=== PATIENT | male | born 1935 | race Caucasian/White ===

== ENCOUNTER 2019-10-25 01:44 | Inpatient (IN) | payer MEDICARE, MEDICAID, SELFPAY ==
[2019-10-25] VITALS (175 sets, daily range): BP systolic 75–178; BP diastolic 44–110; PULSE 68–115; RESP 13–29; TEMP 35.9–37.1; O2SAT 77–100; BMI 19.5
--- NOTE | 2019-10-25 02:08 | ED_ITS ---
Entered by Yazmin Oden, acting as scribe for Tatum Rodríguez MD HPI - GI Bleed General: Chief complaint: GI Bleed Stated complaint: RECTAL BLEEDING Time Seen by Provider: 10/25/19 01:50 Source: patient and family Mode of arrival: ambulatory History of Present Illness: HPI Narrative: 84 y/o male presents to the ED with GI bleeding. 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 He has a hx of hemorrhoids but states he had them repaired several years ago and has not had any issues since then. Upon exam, pts underwear and the bed sheets are soaked with blood. Pt is very pale and lethargic. Family states he is on blood thinners. He also had an episode of vomiting, in the bathroom, at home after become dizzy. Family reports there was not any blood present in the emesis. MD complaint: other (blood in stool) Onset (ago): hour(s) Pain Consistency: constant Severity: moderate Exacerbating factors: bowel movement Context: hemorrhoids Associated symptoms: Reports malaise, vomiting and weakness; Denies abdominal pain, chills, easy bruising, fever(s), headache(s) or rash Review of Systems Const: Reports: malaise; Denies: fever, chills, body aches or change in appetite Eyes: Denies: blurry vision or eye discomfort ENMT: Denies: throat pain or dental pain Card: Denies: chest pain Resp: Denies: shortness of breath GI: Reports: vomiting and blood in stool; Denies: abdominal pain or diarrhea : Denies: painful urination Musc: Denies: neck pain or back pain Skin/Breast: Denies: rash Neuro: Denies: headache Psych: Denies: depression Juan Carlos/Lymph: Denies: easy bruising All/Imm: Denies: hives PFS ED PFSH: Medical History (Updated 10/25/19 @ 04:50 by Travon Springer MD) Chronic kidney disease, stage III (moderate) Cognitive impairment Constipation COPD (chronic obstructive pulmonary disease) Coronary artery disease Hyperlipidemia Hypertension Surgical History (Updated 10/25/19 @ 04:50 by Travon Springer MD) Stented coronary artery 3 stents at [facility] 16 years ago Family History (Updated 10/25/19 @ 04:54 by Travon Springer MD) Denies family history of Clotting disorder Chronic kidney disease (CKD) Social History (Updated 10/25/19 @ 04:55 by Travon Springer MD) Smoking and tobacco status: former smoker Quit status (tobacco): has quit using tobacco Former quit date comment: Quit smoking few weeks ago Alcohol intake: never Substance/Drug Use: never Household members: family Housing: House Physical Exam Const: GENERAL APPEARANCE: lethargic, ill appearing and frail appearing ORIENTATION/CONSCIOUSNESS: Yes lethargic HENMT: COMMON NORMALS: normocephalic and head/scalp atraumatic HEAD & SCALP: normocephalic and atraumatic TYMPANIC MEMBRANE: other (Pt has a very hard time hearing, even with his hearing aids.) Eye: COMMON NORMALS: PERRL and EOMs intact bilaterally PUPIL: Yes PERRL Neck/C-Spine: COMMON NORMALS: full ROM and supple Chest: COMMONS NORMALS: inspection of chest normal and palpation of chest normal Resp: COMMON NORMALS: normal respiratory effort, no retractions, no use of accessory muscles and clear to auscultation bilaterally AUSCULTATION: clear to auscultation bilaterally Cardio: COMMON NORMALS: regular rate, regular rhythm and no murmurs RATE: regular rate RHYTHM: regular rhythm GI: COMMON NORMALS: normal to inspection, nondistended, normoactive bowel sounds, soft to palpation, non-tender and no masses PALPATION: Yes soft OTHER: bright red blood upon rectal exam Extremity: COMMON NORMALS: normal to inspection and full ROM Neuro: COMMON NORMALS: no focal motor deficits SENSORIUM/ORIENTATION: Yes lethargic Psych: COMMON NORMALS: thought process normal and cooperative ATTITUDE: Yes calm THOUGHT PROCESS: normal thought process Skin: COMMON NORMALS: no rashes or lesions noted and no wounds NARRATIVE SKIN EXAM: pale GENERAL SKIN EXAM: no rashes or lesions noted Course Vital Signs: Vital signs: Vital Signs Temperature 97.4 F L 10/25/19 05:05 Pulse Rate 80 10/25/19 05:05 Respiratory Rate 16 10/25/19 05:05 Blood Pressure 112/66 10/25/19 05:05 Pulse Oximetry 96 10/25/19 05:05 MDM - GI Bleed MDM Narrative: Medical decision making narrative: Patient presents here with lower GI bleed and hypotension. Patient's original blood pressure was in 70s and he is quite pale. Patient transfused due to symptomatic blood loss. Initial hemoglobin was 10 by believe that is incorrect and second 1 did drop quite a bit to 8.4. Patient is improved after blood products and blood pressure is now 121/59. Patient CT showed a possible proctitis. I believe his bleeding is likely from a diverticulosis. Patient started on doxycycline although he did not have much tenderness on rectal exam. Lab Data: Labs: Lab Results 10/25/19 10/25/19 10/25/19 Range/Units 02:05 02:05 02:05 WBC 24.2 H (4.0-10.0) 10^3/ uL RBC 3.45 L (4.1-5.3) 10^6/u L Hgb 10.9 L (11.7-16.6) g/dL Hct 34.9 L (42.0-52.0) % MCV 101.2 H (80-94) fL MCH 31.6 (28.0-34.0) pg MCHC 31.2 (30.0-36.0) g/dL RDW 15.3 H (12.1-15.1) % Plt Count 253 (130-400) 10^3/c mm MPV 11.6 H (7.4-10.4) fL Neut % (Auto) 77.8 % Lymph % (Auto) 13.6 % [place] % (Auto) 7.1 % Eos % (Auto) 0.6 % Baso % (Auto) 0.3 % Neut # (Auto) 18.9 H (1.8-7.7) 10^3/u L Lymph # (Auto) 3.3 (0.8-4.8) 10^3/u L [place] # (Auto) 1.7 H (0.2-0.9) 10^3/u L Eos # (Auto) 0.1 (0.0-0.8) 10^3/u L Baso # (Auto) 0.1 (0.0-0.1) 10^3/u L Nucleated RBC % (a uto) 0 % Nucleated RBCs # 0.0 /100WBC PT 13.80 H (10.5-13.3) SECO NDS INR 1.06 (0.8-1.2) Sodium 138 (136-145) mmol/L Potassium 4.4 (3.5-5.1) mmol/L Chloride 106 (98-107) mmol/L Carbon Dioxide 20 L (22-29) mmol/L Anion Gap 16.4 (5-19) BUN 38 H (8-23) mg/dL Creatinine 2.6 H (0.7-1.2) mg/dL Glucose 203 H (65-115) mg/dL Lactate (0.5-2.2) mmol/L Calcium 9.3 (8.5-10.5) mg/dL Total Bilirubin 0.2 (0.15-1.2) mg/dL AST 11 (0-40) U/L ALT 6 (0-41) U/L Alkaline Phosphata se 66 (40-130) IU/L Total Protein 6.3 L (6.6-8.7) g/dL Albumin 3.5 (3.5-5.2) g/dL Globulin 2.8 (1.3-4.6) g/dL Blood Type Rho(D) Type Antibody Screen Crossmatch 10/25/19 10/25/19 10/25/19 Range/Units 02:05 02:05 04:20 WBC (4.0-10.0) 10^3/ uL RBC (4.1-5.3) 10^6/u L Hgb 8.4 L (11.7-16.6) g/dL Hct (42.0-52.0) % MCV (80-94) fL MCH (28.0-34.0) pg MCHC (30.0-36.0) g/dL RDW (12.1-15.1) % Plt Count (130-400) 10^3/c mm MPV (7.4-10.4) fL Neut % (Auto) % Lymph % (Auto) % [place] % (Auto) % Eos % (Auto) % Baso % (Auto) % Neut # (Auto) (1.8-7.7) 10^3/u L Lymph # (Auto) (0.8-4.8) 10^3/u L [place] # (Auto) (0.2-0.9) 10^3/u L Eos # (Auto) (0.0-0.8) 10^3/u L Baso # (Auto) (0.0-0.1) 10^3/u L Nucleated RBC % (a uto) % Nucleated RBCs # /100WBC PT (10.5-13.3) SECO NDS INR (0.8-1.2) Sodium (136-145) mmol/L Potassium (3.5-5.1) mmol/L Chloride (98-107) mmol/L Carbon Dioxide (22-29) mmol/L Anion Gap (5-19) BUN (8-23) mg/dL Creatinine (0.7-1.2) mg/dL Glucose (65-115) mg/dL Lactate 2.7 H (0.5-2.2) mmol/L Calcium (8.5-10.5) mg/dL Total Bilirubin (0.15-1.2) mg/dL AST (0-40) U/L ALT (0-41) U/L Alkaline Phosphata se (40-130) IU/L Total Protein (6.6-8.7) g/dL Albumin (3.5-5.2) g/dL Globulin (1.3-4.6) g/dL Blood Type O Positive Rho(D) Type Positive Antibody Screen Negative Crossmatch See Detail Imaging Data^: CT Abd/Pel: Radiologist's impression: [place] [address] CT Scan Report Signed Patient: Jimenez Green #: [id number] : 6Acct#:[id number] Age/Sex: 84 / MADM Date: 10/25/19 Loc: ERRoom/Bed: Attending Dr: Ordering Provider/Ordering MD: Tatum Rodríguez MD Date of Service: 10/25/19 Procedure(s): CT abdomen pelvis con [id number] Accession Number(s): [id number] Report Number: [id number] PROCEDURE INFORMATION: Exam: CT Abdomen And Pelvis Without Contrast Exam date and time: 10/25/2019 2:42 AM Age: 84 years old Clinical indication: Nausea and vomiting and other: Rectal bleeding; Abdominal pain; Generalized; Prior surgery; Surgery date: 6+ months; Surgery type: Hemorrhoid; Additional info: Abd pain TECHNIQUE: Imaging protocol: Computed tomography of the abdomen and pelvis without contrast. Total DLP: 528.34 mGy-cm Radiation optimization: All CT scans at this facility use at least one of these dose optimization techniques: automated exposure control; mA and/or kV adjustment per patient size (includes targeted exams where dose is matched to clinical indication); or iterative reconstruction. COMPARISON: No relevant prior studies available. FINDINGS: Liver: Normal. No mass. Gallbladder and bile ducts: Normal. No calcified stones. No ductal dilation. Pancreas: Normal. No ductal dilation. Spleen: Normal. No splenomegaly. Adrenals: Normal. No mass. Kidneys and ureters: Water density bilateral renal lesions are suggestive of cysts that do not require specific follow-up. Largest is estimated at 3.6 cm. Stomach and bowel: Colonic diverticuli. Hazy increased density in perirectal fat. Rectal wall is mildly thickened. There is questioned short segment thickening of proximal ascending colonic wall although stool or peristalsis are possibilities. Appendix: No evidence of appendicitis. Intraperitoneal space: Unremarkable. No free air. No significant fluid collection. Vasculature: Vascular calcifications. The infrarenal aorta mildly increases in diameter to 2.2 cm as compared to 1.8 cm in the more proximal aorta. Lymph nodes: Unremarkable. No enlarged lymph nodes. Bladder: Unremarkable as visualized. Reproductive: Fluid density finding in visualized upper right scrotum can represent hydrocele or cyst . Bones/joints: Unremarkable. No acute fracture. Soft tissues: Unremarkable. Other findings: Coronary calcifications. Emphysema. CT/CT abdomen pelvis wo con [id number] IMPRESSION: Findings suggesting proctitis. Correlation with screening colonic regimen recommended as there is a short segment focus of questioned proximal ascending colonic wall thickening. Additional details as above. Radiation Dose CTDIVOL = (mGy): DLP = 528.34 (mGy-cm) EKG Data^: EKG 1: Attestation: I personally reviewed and interpreted this EKG as follows: EKG interpretation date: 10/25/19 EKG interpretation time: 03:59 Interpretation: nsr hr [address] or t wave abnormalities qrs 90 qtc 425 Critical Care Time Critical Care Time: Critical Care Time: Yes Total Critical Care Time: 35 Attestation: This case had a high probability of a clinically significant, sudden, or life threatening deterioration of this patient's condition which required my full and direct attention, intervention and personal management. Discharge Plan Discharge Patient Disposition: Admitted As Inpatient Clinical Impression: Lower gastrointestinal hemorrhage, Hemorrhagic shock Condition: Stable Referrals: Niya Jain MD [Family Provider] - Adama Olmedo MD [Primary Care Provider] - Coding Level of Care Code ED Security Analyst for Chg Fwd Exam Comprehensive The documentation recorded by the Akshat andrade Ashley, accurately reflects the service I personally performed and the decisions made by me, Tatum Rodríguez MD Oct 25, 2019 01:44
[2019-10-25 02:14] LABS: Basophils # 0.1 10^3/uL (0.0-0.1); Basophils % 0.3 %; Eosinophils # 0.1 10^3/uL (0.0-0.8); Eosinophils % 0.6 %; Hematocrit 34.9 % (42.0-52.0); Hemoglobin 10.9 g/dL (11.7-16.6); Lymphocytes # 3.3 10^3/uL (0.8-4.8); Lymphocytes % 13.6 %; Mean Corpuscular HGB Conc 31.2 g/dL (30.0-36.0); Mean Corpuscular Hemoglobin 31.6 pg (28.0-34.0); Mean Corpuscular Volume 101.2 fL (80-94); Mean Platelet Volume 11.6 fL (7.4-10.4); Monocytes # 1.7 10^3/uL (0.2-0.9); Monocytes % 7.1 %; Neutrophils # 18.9 10^3/uL (1.8-7.7); Neutrophils % 77.8 %; Nucleated Red Blood Cells % 0 %; Platelet Count 253 10^3/cmm (130-400); Red Blood Count 3.45 10^6/uL (4.1-5.3); Red Cell Distribution Width 15.3 % (12.1-15.1); White Blood Count 24.2 10^3/uL (4.0-10.0)
[2019-10-25 02:34] LABS: Alanine Aminotransferase 6 U/L (0-41); Albumin Level 3.5 g/dL (3.5-5.2); Alkaline Phosphatase 66 IU/L (40-130); Anion Gap 16.4 (5-19); Aspartate Amino Transferase 11 U/L (0-40); Blood Urea Nitrogen 38 mg/dL (8-23); Calcium 9.3 mg/dL (8.5-10.5); Carbon Dioxide 20 mmol/L (22-29); Chloride 106 mmol/L (98-107); Globulin 2.8 g/dL (1.3-4.6); Glucose 203 mg/dL (65-115); Potassium 4.4 mmol/L (3.5-5.1); Sodium 138 mmol/L (136-145); Total Bilirubin 0.2 mg/dL (0.15-1.2); Total Protein 6.3 g/dL (6.6-8.7)
--- NOTE | 2019-10-25 02:36 | CTR_ITS ---
PROCEDURE INFORMATION: Exam: CT Abdomen And Pelvis Without Contrast Exam date and time: 10/25/2019 2:42 AM Age: 84 years old Clinical indication: Nausea and vomiting and other: Rectal bleeding; Abdominal pain; Generalized; Prior surgery; Surgery date: 6+ months; Surgery type: Hemorrhoid; Additional info: Abd pain TECHNIQUE: Imaging protocol: Computed tomography of the abdomen and pelvis without contrast. Total DLP: 528.34 mGy-cm Radiation optimization: All CT scans at this facility use at least one of these dose optimization techniques: automated exposure control; mA and/or kV adjustment per patient size (includes targeted exams where dose is matched to clinical indication); or iterative reconstruction. COMPARISON: No relevant prior studies available. FINDINGS: Liver: Normal. No mass. Gallbladder and bile ducts: Normal. No calcified stones. No ductal dilation. Pancreas: Normal. No ductal dilation. Spleen: Normal. No splenomegaly. Adrenals: Normal. No mass. Kidneys and ureters: Water density bilateral renal lesions are suggestive of cysts that do not require specific follow-up. Largest is estimated at 3.6 cm. Stomach and bowel: Colonic diverticuli. Hazy increased density in perirectal fat. Rectal wall is mildly thickened. There is questioned short segment thickening of proximal ascending colonic wall although stool or peristalsis are possibilities. Appendix: No evidence of appendicitis. Intraperitoneal space: Unremarkable. No free air. No significant fluid collection. Vasculature: Vascular calcifications. The infrarenal aorta mildly increases in diameter to 2.2 cm as compared to 1.8 cm in the more proximal aorta. Lymph nodes: Unremarkable. No enlarged lymph nodes. Bladder: Unremarkable as visualized. Reproductive: Fluid density finding in visualized upper right scrotum can represent hydrocele or cyst . Bones/joints: Unremarkable. No acute fracture. Soft tissues: Unremarkable. Other findings: Coronary calcifications. Emphysema. CT/CT abdomen pelvis wo con [id number] IMPRESSION: Findings suggesting proctitis. Correlation with screening colonic regimen recommended as there is a short segment focus of questioned proximal ascending colonic wall thickening. Additional details as above. Radiation Dose CTDIVOL = (mGy): DLP = 528.34 (mGy-cm)
[2019-10-25] MEDS: sodium chloride 0.9% 1,000 ML 999 ML IV (02:41)
[2019-10-25] MEDS: sodium chloride 0.9% 500 ML 999 ML IV (02:42)
[2019-10-25] MEDS: fentaNYL 50 mcg/mL INJ 2mL IVP (02:42)
[2019-10-25] MEDS: ondansetron 2 mg/ML SDV 2 mL 4 MG IVP (02:43)
[2019-10-25 03:15] LABS: INR 1.06 (0.8-1.2)
[2019-10-25] MEDS: pantoprazole 40 MG in sodium chloride 0.9% (plus) 100 ML 20 MG IV (03:35)
[2019-10-25] MEDS: pantoprazole 40 mg SDV 80 MG IVP (03:35)
[2019-10-25 03:39] LABS: Lactate (Lactic Acid level) 2.7 mmol/L (0.5-2.2)
--- NOTE | 2019-10-25 03:50 | PC.NURSE ---
Introduced self to patient and initiated vital signs. Patient presents A&O x 4. NAD, ABCs intact, MAEW and agreeable to treatment. Respirations are even and unlabored. Pt states that the chief complaint for the ER visit today is due to bright red blood in stool which presented around 1700 Pt denies any vision disturbances or lightheadedness. Bed left in lowest position in semi-fowlers with side rails up.Reassured patient of needs and will continue to monitor.
--- NOTE | 2019-10-25 04:01 | PC.NURSE ---
[facility] [phone]
[2019-10-25 04:27] LABS: Hemoglobin 8.4 g/dL (11.7-16.6)
--- NOTE | 2019-10-25 04:35 | P.HP_ITS ---
Providers/Chief Complaint Primary Care Provider: Adama Olmedo MD Chief Complaint: RECTAL BLEEDING History of Present Illness Jimenez Green is a 84 year old male who carries diagnosis of established coronary disease, hypertension, CKD stage III presented with chief complaint of lower GI bleed. Patient is stating that he was in his usual state of health i.e. independent for his daily activities, quit smoking, has been experiencing constipation. Today around 6 PM he had a bowel movement with hard stools which followed by profuse bright bleed per rectum, he started experiencing hypogastric region abdominal pain with it, did not notice any fever, chills but experienced nausea vomiting and some right shoulder pain for which she took 1 dose of sublingual nitroglycerin. He is denying any previous history of GI bleed, use o f anticoagulants, he uses aspirin. He is endorsing to constipation and hard stool passage. No recent traveling. On arrival in ER his systolic blood pressure was fluctuating between 70-80, rectal exam showed bright bleed per rectum, CT scan showed proctitis with stool burden He was given doxycycline, blood transfusion was initiated When I examined the patient his systolic blood pressure was 105, he was awake alert oriented x3 He endorsed that his abdominal pain has subsided after getting analgesics Review of Systems Const: Denies: fever, chills or body aches Eyes: Denies: change in vision ENMT: Denies: throat pain Card: Denies: chest pain, palpitations, edema or syncope Resp: Denies: shortness of breath GI: Reports: abdominal pain, nausea, vomiting, constipation, change in bowel habits, rectal pain and blood in stool; Denies: rectal swelling : Denies: flank pain Musc: Denies: neck pain Skin/Breast: Denies: rash Neuro: Denies: headache Psych: Denies: anxiety Endo: Denies: excessive urination Juan Carlos/Lymph: Denies: easy bruising All/Imm: Denies: hives Medications/Allergies Allergies Allergy/AdvReac Type Severity Reaction Status Date / Time No Known Allergies Allergy Verified 10/25/19 02:09 PFSH Acute PFSH: Medical History (Updated 10/25/19 @ 04:50 by Travon Springer MD) Chronic kidney disease, stage III (moderate) Cognitive impairment Constipation COPD (chronic obstructive pulmonary disease) Coronary artery disease Hyperlipidemia Hypertension Surgical History (Updated 10/25/19 @ 04:50 by Travon Springer MD) Stented coronary artery 3 stents at [facility] 16 years ago Family History (Updated 10/25/19 @ 04:54 by Travon Springer MD) Denies family history of Clotting disorder Chronic kidney disease (CKD) Social History (Updated 10/25/19 @ 04:55 by Travon Springer MD) Smoking and tobacco status: former smoker Quit status (tobacco): has quit using tobacco Former quit date comment: Quit smoking few weeks ago Alcohol intake: never Substance/Drug Use: never Household members: family Housing: House Vitals/I&O/Wt Last Vital Signs Temp 97.5 F L 10/25/19 04:28 Pulse 95 10/25/19 03:58 Resp 18 10/25/19 04:28 BP 91/55 10/25/19 04:28 Pulse Ox 96 10/25/19 03:58 Weight last 48 hrs Weight 63.503 kg Physical Exam Narrative: EXAM NARRATIVE: Very pleasant elderly male lying comfortably in his bed saturating well on room air Alert oriented x3 GCS 15 Pallor complexion Patient is very hard of hearing S1, S2 no tachycardia or signs of heart failure Lung auscultation reveals clear breath sounds without adventitious sounds Abdomen reveals: Soft, mild tenderness on deep palpation to hypogastric and right lower quadrant area, bowel sounds are very sluggish, mild guarding without profound rigidity Lower extremity does not show any sign ischemia gangrene ulcer Rectal exam showed bright bleed per rectum Appropriate mood and affect Data : 10/25/19 04:20 10/25/19 02:05 A&P Assessment and plan (1) Lower gastrointestinal hemorrhage: Status: Acute Code(s): K92.2 - Gastrointestinal hemorrhage, unspecified (2) Hemorrhagic shock: Status: Acute Code(s): R57.8 - Other shock Additional A&P Information Lower GI bleed secondary to proctitis after passage of hard stool Monitor for signs of perforation with serial abdominal exam For leukocytosis and proctitis I would cover him for gram-negative and anaerobic microorganisms with [facility] General surgery consult, Dr. Villagomez consulted and notified by ER physician Acute macrocytic blood loss anemia Hemorrhagic shock responding well to blood transfusion and fluid resuscitation Current hemoglobin is 8.4, his baseline hemoglobin is 11-13 Check B12 folate level Established coronary disease History of 3 stents placement No active chest pain, he took 1 nitroglycerin for right shoulder pain before his arrival to ED Currently he is asymptomatic, Dyslipidemia and COPD We are not certain about his home medications, kindly call his pharmacy to reconcile For now I am holding statins and aspirin No active COPD exacerbation Acute on chronic kidney disease stage III: Due to shock Baseline creatinine around 2-2.3, current creatinine is 2.6 Monitor with BMP Anticipating provement with slow resuscitation and blood transfusion DVT prophylaxis: SCDs Avoid anticoagulation because of active GI bleed Full code Attestations Medical Necessity Statement*: Admit to ICU for hemorrhagic shock anticipating stay to cross more than 2 midnights Time Spent in Patient Care: 45 Critical Care Time: Critical Care Time (min): 30 Coding Level of Care Code Acute Bedspread Seamer for Rubén Hanna Diagnoses Lower gastrointestinal hemorrhage K92.2 Hemorrhagic shock R57.8
--- NOTE | 2019-10-25 04:38 | PC.NURSE ---
Blood titrated to 200 ml/hr
--- NOTE | 2019-10-25 05:28 | PC.NURSE ---
Blood titrated to 240 ml/hr
--- NOTE | 2019-10-25 05:45 | PC.NURSE ---
Called ICU to give report, they will call back.
[2019-10-25] MEDS: doxycycline 100 MG in sodium chloride 0.9% (plus) 100 ML IV (06:04)
--- NOTE | 2019-10-25 06:31 | PC.NURSE ---
Pt transported to ICU by this RN.
[2019-10-25 06:54] LABS: Add Urine Microscopic? YES; Bilirubin Urine Neg (NEGATIVE); Blood Urine 2+ (Negative); Glucose Urine UA Norm (Normal); Ketones Urine Negative (Negative); Leukocyte Esterase Urine Negative (Negative); Nitrate Urine Negative (Negative); Protein Urine Neg (Negative); Specific Gravity, Urine 1.015 (1.005-1.030); Urine Appearance Clear (CLEAR); Urine Color Yellow (Yellow); Urobilinogen Urine Norm (Negative); pH Urine 5 (5-7)
[2019-10-25 07:02] LABS: Bacteria Urine TRACE; Mucus Urine TRACE; Squamous Epithelial Cell Urine 0-4 (0-5); WBC Urine 0-4 /hpf (0-5)
[2019-10-25 07:03] LABS: Add Urine Culture? No; Hyaline Casts Urine 0-4
[2019-10-25] MEDS: piperacillin-tazobactam 3.375 GM in sodium chloride 0.9% (plus) 50 ML IV ×2 (08:05→20:26)
--- NOTE | 2019-10-25 08:12 | PC.NURSE ---
Physician notified of Miralax order. MD gave verbal orders to hold medication this AM
--- NOTE | 2019-10-25 08:20 | PC.NURSE ---
Blood transfusion complete at 8:16 am. Vitals stable at this time and patient appears to be sleeping.
[2019-10-25] MEDS: pantoprazole 40 mg SDV IVP ×2 (10:31→17:27)
[2019-10-25 11:05] LABS: Hematocrit 38.2 % (42.0-52.0); Hemoglobin 11.6 g/dL (11.7-16.6)
--- NOTE | 2019-10-25 14:58 | PM.PN ---
Subjective Subjective: Interval history: overnight H&P, labs reviewed, no further bleeding episodes. no new complaints this morning. Hb 11 this morning Medications: Reviewed: Yes Vitals/I&O/Wt Last Vital Signs Temp 97.5 F L 10/25/19 08:19 Pulse 84 10/25/19 12:15 Resp 17 10/25/19 12:15 BP 133/67 10/25/19 12:15 Pulse Ox 97 10/25/19 12:15 10/24/19 10/25/19 10/25/19 22:59 06:59 14:59 Intake Total 0 / 0 600 / 600 Output Total 240 / 240 Balance 0 / 0 360 / 360 Weight last 48 hrs Weight 63.503 kg Physical Exam Narrative: EXAM NARRATIVE: GEN: Awake, alert and oriented, no acute distress CVS: S1S2 N RS: CTA B/L Abd: Soft, nt/nd , bs+ PURIFICATION SUPERVISOR: no focal neuro deficits Data : 10/25/19 10:25 10/25/19 02:05 A&P Assessment and plan (1) Lower gastrointestinal hemorrhage: Status: Acute Code(s): K92.2 - Gastrointestinal hemorrhage, unspecified (2) Hemorrhagic shock: Status: Acute Code(s): R57.8 - Other shock Additional A&P Information Lower GI bleed secondary to proctitis after passage of hard stool Monitor for signs of perforation with serial abdominal exam For leukocytosis and proctitis curretly on Zosyn likely colonoscopy in am Acute macrocytic blood loss anemia Hemorrhagic shock responding well to blood transfusion and fluid resuscitation rpt hb 11 Established coronary disease History of 3 stents placement No active chest pain, he took 1 nitroglycerin for right shoulder pain before his arrival to ED Currently he is asymptomatic, Dyslipidemia and COPD No active COPD exacerbation Acute on chronic kidney disease stage III: Due to shock Baseline creatinine around 2-2.3, current creatinine is 2.6 Monitor with BMP Anticipating provement with slow resuscitation and blood transfusion DVT prophylaxis: SCDs Avoid anticoagulation because of active GI bleed Full code Attestations Medical Necessity Statement*: gi bleeding,planned for colonoscopy, close monitoring Coding Level of Care Code Acute Plodding Operator for Rubén Hanna Diagnoses Lower gastrointestinal hemorrhage K92.2 Hemorrhagic shock R57.8
[2019-10-25] MEDS: magnesium citrate Btl 296 mL PO ×2 (15:14→20:26)
[2019-10-25] MEDS: bisacodyl 5 mg Tablet 40 MG PO (15:14)
[2019-10-26] VITALS (23 sets, daily range): BP systolic 108–170; BP diastolic 63–105; PULSE 76–111; RESP 14–23; TEMP 36.4–36.7; O2SAT 85–98
[2019-10-26 05:04] LABS: Basophils # 0.1 10^3/uL (0.0-0.1); Basophils % 0.3 %; Eosinophils # 0.2 10^3/uL (0.0-0.8); Eosinophils % 0.9 %; Hematocrit 36.8 % (42.0-52.0); Lymphocytes # 1.4 10^3/uL (0.8-4.8); Lymphocytes % 6.5 %; Mean Corpuscular HGB Conc 32.6 g/dL (30.0-36.0); Mean Corpuscular Hemoglobin 31.2 pg (28.0-34.0); Mean Corpuscular Volume 95.6 fL (80-94); Mean Platelet Volume 11.5 fL (7.4-10.4); Monocytes # 1.2 10^3/uL (0.2-0.9); Monocytes % 5.7 %; Neutrophils # 18.3 10^3/uL (1.8-7.7); Nucleated Red Blood Cells % 0 %; Platelet Count 153 10^3/cmm (130-400); Red Blood Count 3.85 10^6/uL (4.1-5.3); Red Cell Distribution Width 16.4 % (12.1-15.1); White Blood Count 21.3 10^3/uL (4.0-10.0)
[2019-10-26 05:26] LABS: Anion Gap 15.4 (5-19); Blood Urea Nitrogen 33 mg/dL (8-23); Calcium 9.2 mg/dL (8.5-10.5); Carbon Dioxide 21 mmol/L (22-29); Chloride 110 mmol/L (98-107); Glucose 111 mg/dL (65-115); Osmolality Calculated 292 mOsm/kg (285-295); Potassium 4.4 mmol/L (3.5-5.1); Sodium 142 mmol/L (136-145)
--- NOTE | 2019-10-26 08:00 | PC.NURSE ---
DR. BUSCH IN ROOM. PATIENT STATES I DO NOT WANT THE PROCEDURE WHERE YOU PUT THE TUBE DOWN MY THROAT. YOU CAN STILL SCOPE MY BOTTOM THOUGH. ORDERS RECEIVED FROM DR. BUSCH TO SCHEDULE COLONOSCOPY ONLY.
[2019-10-26] MEDS: Fleet Enema 133 mL Enema PR (11:07)
[2019-10-26] MEDS: sodium chloride 0.9% 1,000 ML 30 ML (12:15)
--- NOTE | 2019-10-26 12:15 | P.ANESASSM_ITS ---
Pre-Anesthetic Assessment Pre-Anesthetic Assessment: Height/Weight: Height 1.8 m Weight 63.503 kg Temp Pulse Resp BP Pulse Ox 98.0 F 93 16 142/99 96 10/26/19 05:04 10/26/19 10:00 10/26/19 04:00 10/26/19 10:00 10/26/19 10:00 Preop Diagnosis: gi bleed Proposed Procedure: Operation Date: 10/26/19 12:30 Proposed Procedures p EGD/COLON(Not Applicable) - Lai Villagomez MD s Colonoscopy(Not Applicable) - Lai Villagomez MD Last intake: Intake Last Liquid Date 10/25/19 Last Liquid Time 20:00 Last Solid Date 10/24/19 Last Solid Time 18:00 Social: Social History: No alcohol Exam: Pre-Anes Outpt Exam: alert, clear to auscultation bilaterally and regular rate & rhythm Airway: Submandibular: WNL Cervical ROM: WNL MP: 2 Dentition: Full History/ROS: No significant history except as noted and No significant complaints Pulmonary: Pulmonary: None reported CV/HEM: CV/HEM: CAD : : Chronic renal failure Hepatic: Hepatic: None reported GI: GI: GERD Metabolic: Metabolic: None reported Musc/skel: Musc/skel: Weakness Neuropsych: Neuropsych: Dementia Anesthetic Plan: ASA status: 3 Anesthesia: Anesthesia Evaluation and MAC Risk of > 500 ml blood loss (7ml/kg in children): No Meds/Allergies Current Medications: Current Medications Generic Name Dose Route Start Last Admin Trade Name Freq PRN Reason Stop Dose Admin Piperacillin Sod/T azobactam 50 mls @ 12.5 mls /hr 10/25/19 07:30 10/26/19 06:42 Sod 3.375 gm/ So dium Chloride IV Infused Q12H ROSAURA Infusion Protocol Pantoprazole Sodiu m 40 mg 10/25/19 09:00 10/25/19 17:27 Protonix IVP 40 mg BID ROSAURA Administration PFSH Anesthesia PFSH: Medical History (Updated 10/25/19 @ 04:50 by Travon Springer MD) Chronic kidney disease, stage III (moderate) Cognitive impairment Constipation COPD (chronic obstructive pulmonary disease) Coronary artery disease Hyperlipidemia Hypertension Surgical History (Updated 10/25/19 @ 04:50 by Travon Springer MD) Stented coronary artery 3 stents at [facility] 16 years ago Family History (Updated 10/25/19 @ 04:54 by Travon Springer MD) Denies family history of Clotting disorder Chronic kidney disease (CKD) Social History (Updated 10/25/19 @ 04:55 by Travon Springer MD) Smoking and tobacco status: former smoker Quit status (tobacco): has quit using tobacco Former quit date comment: Quit smoking few weeks ago Alcohol intake: never Substance/Drug Use: never Household members: family Housing: House Data Anesthesia CBC & Chem 7: 10/26/19 04:40 10/26/19 04:40 Other Labs: Laboratory Results - last 48 hr 10/25/19 10/25/19 10/25/19 02:05 02:05 02:05 WBC 24.2 H RBC 3.45 L Hgb 10.9 L Hct 34.9 L MCV 101.2 H MCH 31.6 MCHC 31.2 RDW 15.3 H Plt Count 253 MPV 11.6 H Neut % (Auto) 77.8 Lymph % (Auto) 13.6 [place] % (Auto) 7.1 Eos % (Auto) 0.6 Baso % (Auto) 0.3 Neut # (Auto) 18.9 H Lymph # (Auto) 3.3 [place] # (Auto) 1.7 H Eos # (Auto) 0.1 Baso # (Auto) 0.1 Nucleated RBC % (auto) 0 Nucleated RBCs # 0.0 PT 13.80 H INR 1.06 Sodium 138 Potassium 4.4 Chloride 106 Carbon Dioxide 20 L Anion Gap 16.4 BUN 38 H Creatinine 2.6 H Glucose 203 H Calculated Osmolality Lactate Calcium 9.3 Total Bilirubin 0.2 AST 11 ALT 6 Alkaline Phosphatase 66 Total Protein 6.3 L Albumin 3.5 Globulin 2.8 Urine Color Urine Appearance Urine pH Ur Specific [place] Urine Protein Urine Glucose (UA) Urine Ketones Urine Blood Urine Nitrate Urine Bilirubin Urine Urobilinogen Ur Leukocyte Esterase Urine RBC Urine WBC Ur Squamous Epith Cells Urine Bacteria Hyaline Casts Urine Mucus Blood Type Rho(D) Type Antibody Screen Crossmatch 10/25/19 10/25/19 10/25/19 02:05 02:05 04:20 WBC RBC Hgb 8.4 L Hct MCV MCH MCHC RDW Plt Count MPV Neut % (Auto) Lymph % (Auto) [place] % (Auto) Eos % (Auto) Baso % (Auto) Neut # (Auto) Lymph # (Auto) [place] # (Auto) Eos # (Auto) Baso # (Auto) Nucleated RBC % (auto) Nucleated RBCs # PT INR Sodium Potassium Chloride Carbon Dioxide Anion Gap BUN Creatinine Glucose Calculated Osmolality Lactate 2.7 H Calcium Total Bilirubin AST ALT Alkaline Phosphatase Total Protein Albumin Globulin Urine Color Urine Appearance Urine pH Ur Specific [place] Urine Protein Urine Glucose (UA) Urine Ketones Urine Blood Urine Nitrate Urine Bilirubin Urine Urobilinogen Ur Leukocyte Esterase Urine RBC Urine WBC Ur Squamous Epith Cells Urine Bacteria Hyaline Casts Urine Mucus Blood Type O Positive Rho(D) Type Positive Antibody Screen Negative Crossmatch See Detail 10/25/19 10/25/19 10/26/19 05:00 10:25 04:40 WBC 21.3 H RBC 3.85 L Hgb 11.6 L D 12.0 Hct 38.2 L 36.8 L MCV 95.6 H MCH 31.2 MCHC 32.6 RDW 16.4 H Plt Count 153 MPV 11.5 H Neut % (Auto) 86.0 Lymph % (Auto) 6.5 [place] % (Auto) 5.7 Eos % (Auto) 0.9 Baso % (Auto) 0.3 Neut # (Auto) 18.3 H Lymph # (Auto) 1.4 [place] # (Auto) 1.2 H Eos # (Auto) 0.2 Baso # (Auto) 0.1 Nucleated RBC % (auto) 0 Nucleated RBCs # 0.0 PT INR Sodium Potassium Chloride Carbon Dioxide Anion Gap BUN Creatinine Glucose Calculated Osmolality Lactate Calcium Total Bilirubin AST ALT Alkaline Phosphatase Total Protein Albumin Globulin Urine Color Yellow Urine Appearance Clear Urine pH 5 Ur Specific [place] 1.015 Urine Protein Neg Urine Glucose (UA) Norm Urine Ketones Negative Urine Blood 2+ H Urine Nitrate Negative Urine Bilirubin Neg Urine Urobilinogen Norm Ur Leukocyte Esterase Negative Urine RBC 5-10 H Urine WBC 0-4 H Ur Squamous Epith Cells 0-4 H Urine Bacteria Trace Hyaline Casts 0-4 H Urine Mucus Trace Blood Type Rho(D) Type Antibody Screen Crossmatch 10/26/19 04:40 WBC RBC Hgb Hct MCV MCH MCHC RDW Plt Count MPV Neut % (Auto) Lymph % (Auto) [place] % (Auto) Eos % (Auto) Baso % (Auto) Neut # (Auto) Lymph # (Auto) [place] # (Auto) Eos # (Auto) Baso # (Auto) Nucleated RBC % (auto) Nucleated RBCs # PT INR Sodium 142 Potassium 4.4 Chloride 110 H Carbon Dioxide 21 L Anion Gap 15.4 BUN 33 H Creatinine 2.5 H Glucose 111 Calculated Osmolality 292 Lactate Calcium 9.2 Total Bilirubin AST ALT Alkaline Phosphatase Total Protein Albumin Globulin Urine Color Urine Appearance Urine pH Ur Specific [place] Urine Protein Urine Glucose (UA) Urine Ketones Urine Blood Urine Nitrate Urine Bilirubin Urine Urobilinogen Ur Leukocyte Esterase Urine RBC Urine WBC Ur Squamous Epith Cells Urine Bacteria Hyaline Casts Urine Mucus Blood Type Rho(D) Type Antibody Screen Crossmatch Cardiac Studies: No Data to Display
--- NOTE | 2019-10-26 12:37 | PM.CONSULT ---
Providers/Reason For Consult Consulting Physican/Specialty*: Dr. Choe Reason for Consult*: Hematochezia Attending Physician: Renetta Choe MD Primary Care Provider: Adama Olmedo MD History of Present Illness History of Present Illness Jimenez Green is a 84 year old male who presented to the ER yesterday with fresh blood per rectum. Patient states that he has been having fresh bleeding per rectum for the last 6 to 8 hours. No similar episodes in the past. He states that he is occasional constipation. He is never had a colonoscopy before though his had a EGD in the past. He had some abdominal pain which is now resolved, no nausea or vomiting. No family history of colon cancer. Review of Systems General: Reports: 10 or more systems reviewed and unremarkable except in HPI and below Meds/Allergies Home Medications and Allergies Allergies Allergy/AdvReac Type Severity Reaction Status Date / Time No Known Allergies Allergy Verified 10/25/19 02:09 Current Medications Current Medications Generic Name Dose Route Start Last Admin Trade Name Freq PRN Reason Stop Dose Admin Piperacillin Sod/Tazobactam 50 mls @ 12.5 mls/hr 10/25/19 07:30 10/26/19 06:42 Sod 3.375 gm/ Sodium Chloride IV Infused Q12H ROSAURA Infusion Protocol Pantoprazole Sodium 40 mg 10/25/19 09:00 10/25/19 17:27 Protonix IVP 40 mg BID ROSAURA Administration PFSH Acute PFSH: Medical History Chronic kidney disease, stage III (moderate) Cognitive impairment Constipation COPD (chronic obstructive pulmonary disease) Coronary artery disease Hyperlipidemia Hypertension Surgical History Stented coronary artery 3 stents at [facility] 16 years ago Family History Denies family history of Clotting disorder Chronic kidney disease (CKD) Social History Smoking and tobacco status: former smoker Quit status (tobacco): has quit using tobacco Former quit date comment: Quit smoking few weeks ago Alcohol intake: never Substance/Drug Use: never Household members: family Housing: House Vitals/I&O/Wt Last Vital Signs Temp 98.0 F 10/26/19 05:04 Pulse 93 10/26/19 10:00 Resp 16 10/26/19 04:00 BP 142/99 10/26/19 10:00 Pulse Ox 96 10/26/19 10:00 10/25/19 10/26/19 10/26/19 22:59 06:59 14:59 Intake Total 560 / 1260 50 / 1260 Output Total 250 / 940 450 / 940 250 / 250 Balance 310 / 320 -400 / 320 -250 / -250 Weight last 48 hrs Weight 140 lb Physical Exam Narrative: EXAM NARRATIVE: HEENT: Normocephalic Eye: Sclera /conjunctiva normal Respiratory and chest: Bilateral clear breath sounds on auscultation Cardiovascular: Normal S1 and S2 heart sounds Abdomen: Soft to palpation Neurological: Oriented to place person and time Skin: Intact, no lesions appreciated on gross exam A&P Assessment and plan (1) Lower gastrointestinal hemorrhage: Plan for colonoscopy under MAC CT abdomen pelvis showed possible proctitis, possible constricting lesion in the ascending colon Procedure, risks, benefits and alternatives have been discussed with the patient who wishes to proceed with surgery. Status: Acute Code(s): K92.2 - Gastrointestinal hemorrhage, unspecified Consult Attestations Medical Necessity Statement: Lower GI bleed Coding Level of Care Code Acute Administrative Assistant Front Desk for lorelei Hanna Diagnoses Lower gastrointestinal hemorrhage K92.2
[2019-10-26 13:42] LABS: Lactate (Lactic Acid level) 1.1 mmol/L (0.5-2.2)
--- NOTE | 2019-10-26 16:26 | P.PN_ITS ---
Subjective Subjective: Interval history: s/p colonoscopy this morning which showed findings c/w sigmoid proctitis. No active bleeding. Severe inflammation noted. No new complaints from patient. 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 Some concern for possible ischemic component, however clinically has a benign abdominal exam and downtrending lactate which makes this less likely. If continues to have symptoms or clinical worsening, will likely proceed with CTA. Avoiding contrast for now. Acute macrocytic blood loss anemia Hemorrhagic shock responding well to blood transfusion and fluid resuscitation rpt hb 12 Established coronary disease History of 3 stents placement No active chest pain, he took 1 nitroglycerin for right shoulder pain before his arrival to ED Currently he is asymptomatic, Dyslipidemia and COPD No active COPD exacerbation Acute on chronic kidney disease stage III: Due to shock Baseline creatinine around 2-2.3, current creatinine is 2.6 Monitor with BMP Anticipating provement with slow resuscitation and blood transfusion DVT prophylaxis: SCDs Avoid anticoagulation because of active GI bleed Full code Attestations Medical Necessity Statement*: GI bleed s/p colonoscopy today Coding Level of Care Code Acute Water Well Driller for Chg Fwd Diagnoses Lower gastrointestinal hemorrhage K92.2 Hemorrhagic shock R57.8
[2019-10-26] MEDS: pantoprazole 40 mg SDV IVP (17:53)
[2019-10-26] MEDS: piperacillin-tazobactam 3.375 GM in sodium chloride 0.9% (plus) 50 ML IV (17:53)
[2019-10-27] VITALS (8 sets, daily range): BP systolic 109–155; BP diastolic 56–91; PULSE 75–93; RESP 15–22; TEMP 36.5–36.9; O2SAT 91–98
[2019-10-27] MEDS: piperacillin-tazobactam 3.375 GM in sodium chloride 0.9% (plus) 50 ML IV ×2 (05:57→20:17)
[2019-10-27 06:54] LABS: Basophils # 0.1 10^3/uL (0.0-0.1); Basophils % 0.4 %; Eosinophils # 0.6 10^3/uL (0.0-0.8); Hematocrit 33.7 % (42.0-52.0); Hemoglobin 10.2 g/dL (11.7-16.6); Lymphocytes # 2.1 10^3/uL (0.8-4.8); Lymphocytes % 13.3 %; Mean Corpuscular HGB Conc 30.3 g/dL (30.0-36.0); Mean Corpuscular Volume 99.1 fL (80-94); Mean Platelet Volume 11.3 fL (7.4-10.4); Monocytes % 6.6 %; Neutrophils # 11.6 10^3/uL (1.8-7.7); Neutrophils % 75.2 %; Nucleated Red Blood Cells % 0 %; Platelet Count 153 10^3/cmm (130-400); Red Cell Distribution Width 16.1 % (12.1-15.1); White Blood Count 15.4 10^3/uL (4.0-10.0)
[2019-10-27 07:42] LABS: Alanine Aminotransferase 6 U/L (0-41); Alkaline Phosphatase 51 IU/L (40-130); Anion Gap 12.5 (5-19); Aspartate Amino Transferase 11 U/L (0-40); Blood Urea Nitrogen 30 mg/dL (8-23); Calcium 9.2 mg/dL (8.5-10.5); Carbon Dioxide 23 mmol/L (22-29); Chloride 109 mmol/L (98-107); Globulin 2.4 g/dL (1.3-4.6); Glucose 84 mg/dL (65-115); Potassium 4.5 mmol/L (3.5-5.1); Sodium 140 mmol/L (136-145); Total Bilirubin 0.4 mg/dL (0.15-1.2); Total Protein 5.4 g/dL (6.6-8.7)
--- NOTE | 2019-10-27 08:18 | XR_ITS ---
WS: [id number] XR chest 1V portable [id number] REASON FOR EXAM: pneumonia FINDINGS: The lung peter are well aerated. No pneumonia, pleural effusion, pulmonary edema, pneumoth orax, or mass effect. The hilum and apices are normal. The heart is not enlarged. A questionable hiatal hernia is evident. XR/XR chest 1V portable [id number] IMPRESSION: Negative chest for active pathology.
[2019-10-27] MEDS: pantoprazole 40 mg SDV IVP ×2 (10:02→20:33)
--- NOTE | 2019-10-27 12:30 | PM.PN ---
Subjective Subjective: Interval history: He states that he is feeling a lot better, denies any significant abdominal pain or bleeding per rectum Vitals/I&O/Wt Last Vital Signs Temp 98.5 F 10/27/19 11:55 Pulse 78 10/27/19 11:55 Resp 18 10/27/19 11:55 BP 138/70 10/27/19 11:55 Pulse Ox 98 10/27/19 11:55 10/26/19 10/27/19 10/27/19 22:59 06:59 14:59 Intake Total 522 / 822 840 / 840 Output Total 650 / 1260 360 / 1260 Balance -128 / -438 -360 / -438 840 / 840 Physical Exam Narrative: EXAM NARRATIVE: Abdomen: Soft, nondistended, minimally tender left lower quadrant, no guarding or rigidity Data : 10/27/19 06:35 10/27/19 06:35 A&P Assessment and plan (1) Lower gastrointestinal hemorrhage: Status post colonoscopy showing severe colitis sigmoid colon. His lactate yesterday was 1.1 his lactate today was 1. His white count is down to 15 from 21 I have advanced him to full liquid diet Continue Zosyn, hopefully can go home tomorrow on oral Cipro and Flagyl if white count continues to trend down. 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
--- NOTE | 2019-10-27 16:33 | ANE.PACU2 ---
 Inpatient post-anesthesia follow up: Airway intact: Yes Vital signs: Temperature 98.5 F Pulse Rate [Monito r] 95 Pulse Rate 78 Respiratory Rate 18 Blood Pressure [Le ft Arm] 97/52 Blood Pressure 138/70 Pulse Oximetry 98 Oxygen Delivery Me thod Room Air Oxygen Flow Rate Fraction of Inspir ed Oxygen Hydration adequate: Yes Nausea and vomiting: No Mental status: Baseline
--- NOTE | 2019-10-27 19:12 | P.PN_ITS ---
Subjective Subjective: Interval history: Feels significantly improved this morning. Noted to be sitting up in bed and also ambulating in the room. No further episodes of bleeding with stools. In good spirits. Lactate is trending down, as is leukocytosis. No hemodynamic compromise. 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 Patient continues to do well, will switch over to oral ciprofloxacin and Flagyl tomorrow and likely discharge if continues to show clinical recovery. Lactate is reassuringly trending down. Coupled with clinical recovery, doubt ischemic proctitis. Hemorrhagic shock which is now resolved. Hemoglobin is stable. Established coronary disease History of 3 stents placement No active chest pain Currently he is asymptomatic from the standpoint Dyslipidemia and COPD No active COPD exacerbation Acute on chronic kidney disease stage III DVT prophylaxis: SCDs Avoid anticoagulation because of recent GI bleed Full code Anticipating discharge tomorrow Attestations Medical Necessity Statement*: Ongoing need for monitoring for blood loss anemia and proctitis, need for IV antibiotics, likely to be discharged tomorrow Coding Level of Care Code Acute Bender Hand for [facility] Jacques Diagnoses Lower gastrointestinal hemorrhage K92.2 Hemorrhagic shock R57.8
[2019-10-28] VITALS: BP 154/77; PULSE 73; RESP 18; TEMP 36.7; O2SAT 94
[2019-10-28 04:00] VITALS: BP 142/76; PULSE 74; RESP 18; TEMP 36.6; O2SAT 95
[2019-10-28 07:43] VITALS: BP 132/81; PULSE 72; RESP 16; TEMP 36.7; O2SAT 94
[2019-10-28] MEDS: piperacillin-tazobactam 3.375 GM in sodium chloride 0.9% (plus) 50 ML IV (09:15)
[2019-10-28] MEDS: pantoprazole 40 mg SDV IVP (09:16)
[2019-10-28 10:21] LABS: Basophils # 0.1 10^3/uL (0.0-0.1); Basophils % 0.4 %; Eosinophils # 0.7 10^3/uL (0.0-0.8); Eosinophils % 4.9 %; Hematocrit 34.1 % (42.0-52.0); Hemoglobin 10.5 g/dL (11.7-16.6); Lymphocytes # 1.3 10^3/uL (0.8-4.8); Lymphocytes % 9.8 %; Mean Corpuscular HGB Conc 30.8 g/dL (30.0-36.0); Mean Corpuscular Hemoglobin 29.8 pg (28.0-34.0); Mean Corpuscular Volume 96.9 fL (80-94); Mean Platelet Volume 11.2 fL (7.4-10.4); Monocytes # 0.6 10^3/uL (0.2-0.9); Monocytes % 4.6 %; Neutrophils # 10.9 10^3/uL (1.8-7.7); Neutrophils % 79.9 %; Nucleated Red Blood Cells % 0 %; Platelet Count 177 10^3/cmm (130-400); Red Blood Count 3.52 10^6/uL (4.1-5.3); Red Cell Distribution Width 15.7 % (12.1-15.1); White Blood Count 13.6 10^3/uL (4.0-10.0)
[2019-10-28 10:31] LABS: Alanine Aminotransferase 6 U/L (0-41); Albumin Level 3.2 g/dL (3.5-5.2); Alkaline Phosphatase 45 IU/L (40-130); Anion Gap 14.2 (5-19); Aspartate Amino Transferase 11 U/L (0-40); Blood Urea Nitrogen 26 mg/dL (8-23); Calcium 9.3 mg/dL (8.5-10.5); Carbon Dioxide 24 mmol/L (22-29); Chloride 104 mmol/L (98-107); Globulin 2.6 g/dL (1.3-4.6); Glucose 146 mg/dL (65-115); Potassium 4.2 mmol/L (3.5-5.1); Sodium 138 mmol/L (136-145); Total Bilirubin 0.3 mg/dL (0.15-1.2); Total Protein 5.8 g/dL (6.6-8.7)
--- NOTE | 2019-10-28 11:03 | DCPLANNER ---
Pg 2 of IM reviewed with pt. No questions, copy provided.
[2019-10-28 11:34] VITALS: BP 127/63; PULSE 65; RESP 22; TEMP 36.4; O2SAT 99
[2019-10-28 11:37] VITALS: BP 125/76; PULSE 72; RESP 14; TEMP 36.7; O2SAT 97
--- NOTE | 2019-10-28 12:58 | PM.PN ---
Subjective Subjective: Interval history: Patient has not had any further GI bleed since the colonoscopy which showed colitis. He is tolerating a full liquid diet. He is keen to go home today Vitals/I&O/Wt Last Vital Signs Temp 98.0 F 10/28/19 11:37 Pulse 72 10/28/19 11:37 Resp 14 10/28/19 11:37 BP 125/76 10/28/19 11:37 Pulse Ox 97 10/28/19 11:37 10/27/19 10/28/19 10/28/19 21:59 06:59 14:59 Intake Total 720 / 720 Output Total 250 / 250 Balance 470 / 470 Physical Exam Narrative: EXAM NARRATIVE: Abdomen: Soft, nontender, nondistended Data : 10/28/19 09:51 10/28/19 09:51 A&P Assessment and plan (1) Colitis: DC home on Cipro and Flagyl Follow-up 2 weeks Status: Acute Code(s): K52.9 - Noninfective gastroenteritis and colitis, unspecified Attestations Medical Necessity Statement*: Colitis going home today Coding Level of Care Code Acute Commanding Officer Garage for lorelei Hanna Diagnoses Colitis K52.9
[2019-10-28 14:02] VITALS: BP 125/76; PULSE 72; RESP 14; TEMP 36.7; O2SAT 97
--- NOTE | 2019-10-28 14:31 | PC.NURSE ---
DISCHARGE SUMMARY Patient was given discharge instructions and verbalized understanding. follow up appointments are to be made by patient on 10/28. patients Iv was discontinued and vitals were within patients normals. patient was taken home by family friend.
--- NOTE | 2019-10-28 14:35 | P.DS_ITS ---
Discharge Providers Date of Admission: 10/25/19 04:41 Date of Discharge: October 28, 2019 Attending Provider at Admission: Travon Springer MD Attending Provider at Discharge: Renetta Choe MD Primary Care Provider: Adama Olmedo MD Diagnoses at Discharge Discharge Diagnosis (1) Colitis: Status: Acute Reason for Visit Reason for Visit: Reason For Visit: RECTAL BLEEDING Hospital Course Discharge Summary: Jimenez Green is a 84 year old male who carries diagnosis of established coronary disease, hypertension, CKD stage III presented with chief complaint of lower GI bleed after experiencing a bout of constipation. On arrival in ER his systolic blood pressure was fluctuating between 70-80, rectal exam showed bright bleed per rectum, CT scan showed proctitis with stool burden. He was resuscitated with IV fluids and blood transfusion and hemoglobin has subsequently remained stable at around 10. He underwent a colonoscopy which showed evidence of proctitis. No active bleeding was seen. Mucosa appeared inflamed.Bleeding per rectum resolved spontaneously. At time of discharge she does not have any further episodes. He was treated with Zosyn as he had leukocytosis greater than 20 upon admission. At the time of discharge this has now trended down. He is being discharged with oral prescriptions for ciprofloxacin and Flagyl for another 5 days. He will follow- up with Dr. Villagomez in about 2 weeks. He is clinically well-appearing at the time of discharge. There is no complaint of abdominal pain or further bleeding. Physical Exam Narrative: EXAM NARRATIVE: GEN: Awake, alert and oriented, no acute distress CVS: S1S2 N RS: CTA B/L Abd: Soft, nt/nd , bs+ PULLER OUT: no focal neuro deficits Discharge Data Data Completed and Pending: Completed Studies During Hospitalization Category Date Time Status CT abdomen pelvis wo con [id number] Urge nt Cat Scan 10/25/19 02:36 Completed XR chest 1V isabel ble [id number] Stat Exams 10/27/19 08:18 Completed Pending at discharge Category Date Time Status Pathology: Surgic al [PTH] Routine Pth 10/26/19 12:56 Received Labs from last 24 hours 10/28/19 10/28/19 09:51 09:51 WBC 13.6 H RBC 3.52 L Hgb 10.5 L Hct 34.1 L MCV 96.9 H MCH 29.8 MCHC 30.8 RDW 15.7 H Plt Count 177 MPV 11.2 H Neut % (Auto) 79.9 Lymph % (Auto) 9.8 [place] % (Auto) 4.6 Eos % (Auto) 4.9 Baso % (Auto) 0.4 Neut # (Auto) 10.9 H Lymph # (Auto) 1.3 [place] # (Auto) 0.6 Eos # (Auto) 0.7 Baso # (Auto) 0.1 Nucleated RBC % (a uto) 0 Nucleated RBCs # 0.0 Sodium 138 Potassium 4.2 Chloride 104 Carbon Dioxide 24 Anion Gap 14.2 BUN 26 H Creatinine 2.7 H Glucose 146 H Calcium 9.3 Total Bilirubin 0.3 AST 11 ALT 6 Alkaline Phosphata se 45 Total Protein 5.8 L Albumin 3.2 L Globulin 2.6 Vitals: Last Vital Signs Temp 98.0 F 10/28/19 14:02 Pulse 72 10/28/19 14:02 Resp 14 10/28/19 14:02 BP 125/76 10/28/19 14:02 Pulse Ox 97 10/28/19 14:02 Discharge Plan Discharge Patient Disposition: Home, Self-Care Condition: Stable Prescriptions: New ciprofloxacin HCl 250 mg tablet 250 mg PO BID 5 Days Qty: 10 RF: 0 Flagyl 500 mg tablet 500 mg PO Q8H 5 Days Qty: 15 RF: 0 Discharge Orders: Discharge Order (Routine); Ordered 10/28/19 Ordered By: Renetta Choe Referrals: Niya Jain MD [Family Provider] - 4-7 days (Please call Tuesday to set up a follow up appointment ) Lai Villagomez MD [Physician] - 2 weeks (Please call Tuesday to set up a follow up appointment) Discharge Diet: Usual diet Discharge Activity: Resume usual activity Patient Instructions: Ciprofloxacin (By mouth), Metronidazole (By mouth) Discharge Date/Time: 10/28/19 14:15 Discharge Attestations Time Spent in Discharge Care*: less than 30 min Quality Metrics Clinical Quality Measures During this hospital stay, did patient experience: None Coding Level of Care Code Acute 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
== END 2019-10-28 14:15 | disposition home or self-care (01) | DRG 391 ==
LOC: ER 04:23 → ICU 05:28 → MEDSURG 10-27 01:14
PROVIDERS: Physician Assistant; Surgery; Admitting Provider Internal Medicine; Emergency Provider Emergency Medicine; Family Provider Family Medicine; PCP Family Medicine; Visit Provider Student in an Organized Health Care Education/Training Program
PROC: 0DJD8ZZ Inspection of Lower Intestinal Tract, Via Natural or Artificial Opening Endoscopic (ICD-10-PCS; CPT 45378; 2019-10-26 12:30)
DX: K57.30 Diverticulosis of large intestine without perforation or abscess without bleeding (principal); R57.8 Other shock; D62 Acute posthemorrhagic anemia; N17.9 Acute kidney failure, unspecified; K62.89 Other specified diseases of anus and rectum; I13.10 Hypertensive heart and chronic kidney disease without heart failure, with stage 1 through stage 4 chronic kidney disease, or unspecified chronic kidney disease; J44.9 Chronic obstructive pulmonary disease, unspecified; K52.9 Noninfective gastroenteritis and colitis, unspecified; Z87.891 Personal history of nicotine dependence; I25.10 Atherosclerotic heart disease of native coronary artery without angina pectoris; N18.3 Chronic kidney disease, stage 3 (moderate); E78.5 Hyperlipidemia, unspecified; Z95.5 Presence of coronary angioplasty implant and graft
CPT/HCPCS: 12345; 36415; 36430; 45380; 71045; 74176; 80048; 80053; 81001; 83605; 85014; 85018; 85025; 85610; 86850; 86900; 86920; 88305; 96374; 96375; 99284; C9113; J2405; J2543; J2704; J3010; J3490; J7030; J7040; J7050; P9016

== ENCOUNTER 2020-10-05 17:58 | Emergency (ER) | payer MEDICARE, MEDICAID, SELFPAY ==
[2020-10-05] VITALS (11 sets, daily range): BP systolic 94–152; BP diastolic 66–94; PULSE 59–89; RESP 15–18; TEMP 36.7; O2SAT 93–98; BMI 19.5
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
[2020-10-05 19:30] LABS: Basophils # 0.1 10^3/uL (0.0-0.1); Basophils % 0.2 %; Eosinophils # 0.1 10^3/uL (0.0-0.8); Eosinophils % 0.2 %; Hematocrit 43.2 % (42.0-52.0); Hemoglobin 14.1 g/dL (11.7-16.6); Lymphocytes # 1.1 10^3/uL (0.8-4.8); Lymphocytes % 5.2 %; Mean Corpuscular HGB Conc 32.6 g/dL (30.0-36.0); Mean Corpuscular Hemoglobin 30.6 pg (28.0-34.0); Mean Corpuscular Volume 93.7 fL (80-94); Mean Platelet Volume 10.8 fL (7.4-10.4); Monocytes # 0.9 10^3/uL (0.2-0.9); Monocytes % 4.6 %; Neutrophils # 18.26 10^3/uL (1.8-7.7); Neutrophils % 89.3 %; Nucleated Red Blood Cells % 0 %; Platelet Count 239 10^3/cmm (130-400); Red Blood Count 4.61 10^6/uL (4.1-5.3); Red Cell Distribution Width 15.8 % (12.1-15.1); White Blood Count 20.5 10^3/uL (4.0-10.0)
[2020-10-05 19:48] LABS: Alanine Aminotransferase 11 U/L (0-41); Albumin Level 4.4 g/dL (3.5-5.2); Alkaline Phosphatase 61 IU/L (40-130); Anion Gap 13.3 (5-19); Aspartate Amino Transferase 18 U/L (0-40); Blood Urea Nitrogen 28 mg/dL (8-23); Calcium 9.2 mg/dL (8.5-10.5); Carbon Dioxide 25 mmol/L (22-29); Chloride 100 mmol/L (98-107); Globulin 2.8 g/dL (1.3-4.6); Glucose 88 mg/dL (65-115); Osmolality Calculated 281 mOsm/kg (285-295); Potassium 5.3 mmol/L (3.5-5.1); Sodium 133 mmol/L (136-145); Total Bilirubin 0.3 mg/dL (0.15-1.2); Total Protein 7.2 g/dL (6.6-8.7)
[2020-10-05] MEDS: HYDROmorphone 1 mg/mL INJ 1 mL IVP (20:05)
[2020-10-05] MEDS: iodixanol 320 mg/mL 100mL Btl IV (20:19)
[2020-10-05] MEDS: HYDROcodone-acetaminophen 5-325 mg Tablet 1 TAB PO (21:50)
== END 2020-10-05 22:52 | disposition home or self-care (01) ==
PROVIDERS: Emergency Provider Emergency Medicine; PCP Family Medicine
DX: S22.22XA Fracture of body of sternum, initial encounter for closed fracture (principal); V89.2XXA Person injured in unspecified motor-vehicle accident, traffic, initial encounter; I12.9 Hypertensive chronic kidney disease with stage 1 through stage 4 chronic kidney disease, or unspecified chronic kidney disease; N18.30 Chronic kidney disease, stage 3 unspecified; J44.9 Chronic obstructive pulmonary disease, unspecified; I25.10 Atherosclerotic heart disease of native coronary artery without angina pectoris; E78.5 Hyperlipidemia, unspecified; Z87.891 Personal history of nicotine dependence
CPT/HCPCS: 70450; 71045; 71260; 72125; 74177; 80053; 85025; 96374; 99284; J1170; Q9967

== ENCOUNTER 2020-10-07 02:34 | Emergency (ER) | payer MEDICARE, MEDICAID, SELFPAY ==
[2020-10-07] VITALS (12 sets, daily range): BP systolic 90–147; BP diastolic 60–95; PULSE 14–109; RESP 16–20; TEMP 36.4; O2SAT 91–96; BMI 19.5
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
[2020-10-07] MEDS: morphine 4 mg/mL SDV 1 mL IVP (03:13)
[2020-10-07] MEDS: ondansetron 2 mg/ML SDV 2 mL 4 MG IVP (03:15)
[2020-10-07 03:25] LABS: Basophils # 0.1 10^3/uL (0.0-0.1); Basophils % 0.3 %; Eosinophils % 0.2 %; Hematocrit 42.9 % (42.0-52.0); Hemoglobin 13.9 g/dL (11.7-16.6); Lymphocytes # 1.4 10^3/uL (0.8-4.8); Lymphocytes % 7.4 %; Mean Corpuscular HGB Conc 32.4 g/dL (30.0-36.0); Mean Corpuscular Hemoglobin 30.8 pg (28.0-34.0); Mean Corpuscular Volume 95.1 fL (80-94); Mean Platelet Volume 11.5 fL (7.4-10.4); Monocytes # 1.5 10^3/uL (0.2-0.9); Monocytes % 7.5 %; Neutrophils # 16.33 10^3/uL (1.8-7.7); Nucleated Red Blood Cells % 0 %; Platelet Count 230 10^3/cmm (130-400); Red Blood Count 4.51 10^6/uL (4.1-5.3); White Blood Count 19.4 10^3/uL (4.0-10.0)
[2020-10-07 03:40] LABS: Alanine Aminotransferase 12 U/L (0-41); Albumin Level 4.1 g/dL (3.5-5.2); Alkaline Phosphatase 62 IU/L (40-130); Anion Gap 17.2 (5-19); Aspartate Amino Transferase 20 U/L (0-40); Blood Urea Nitrogen 50 mg/dL (8-23); Calcium 9.1 mg/dL (8.5-10.5); Carbon Dioxide 23 mmol/L (22-29); Chloride 104 mmol/L (98-107); Globulin 3.1 g/dL (1.3-4.6); Glucose 106 mg/dL (65-115); Osmolality Calculated 302 mOsm/kg (285-295); Potassium 5.2 mmol/L (3.5-5.1); Sodium 139 mmol/L (136-145); Total Bilirubin 0.4 mg/dL (0.15-1.2); Total Protein 7.2 g/dL (6.6-8.7)
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
[2020-10-07] MEDS: ipratropium-albuterol 3 mL Neb INHALATION (04:23)
[2020-10-07] MEDS: sodium chloride 0.9% 1,000 ML 30 ML IV (04:25)
[2020-10-07] MEDS: HYDROcodone-acetaminophen 5-325 mg Tablet 1 TAB PO (04:25)
--- NOTE | 2020-10-07 05:49 | PC.NURSE ---
tried to call son at [phone] to get ride for patient, but phone when straight to voicemail.
--- NOTE | 2020-10-07 06:13 | PC.NURSE ---
called patients antonio, his son, but got no answer and was unable to leave message on the phone.
[2020-10-07] MEDS: HYDROcodone-acetaminophen 5-325 mg Tablet 2 TAB PO (09:43)
== END 2020-10-07 09:48 | disposition home or self-care (01) ==
PROVIDERS: Emergency Provider Emergency Medicine; PCP Family Medicine
DX: S22.20XA Unspecified fracture of sternum, initial encounter for closed fracture (principal); V89.2XXA Person injured in unspecified motor-vehicle accident, traffic, initial encounter; I12.9 Hypertensive chronic kidney disease with stage 1 through stage 4 chronic kidney disease, or unspecified chronic kidney disease; N18.30 Chronic kidney disease, stage 3 unspecified; J44.9 Chronic obstructive pulmonary disease, unspecified; I25.10 Atherosclerotic heart disease of native coronary artery without angina pectoris; E78.5 Hyperlipidemia, unspecified; Z87.891 Personal history of nicotine dependence
CPT/HCPCS: 71250; 80053; 85025; 94640; 96361; 96374; 96375; 99284; J2270; J2405; J7030

== ENCOUNTER 2021-07-11 09:24 | Observation (INO) | payer MEDICARE, MEDICAID, SELFPAY ==
[2021-07-11] VITALS (119 sets, daily range): BP systolic 103–169; BP diastolic 58–104; PULSE 56–198; RESP 14–31; TEMP 36.3–36.5; O2SAT 82–97; BMI 18.2
--- NOTE | 2021-07-11 09:36 | ECG_ITS ---
[facility] Test Date: 2021-07-11 Pat Name: Jimenez Green Department: Room: Gender: Male Warper Tender: : 1935 Requested By: Sahil Johnson Order Number: [id number] Samia MD: Davi Phillips M.D. Measurements Intervals [place] Rate: 200 P: WA: QRS: 89 QRSD: 170 T: 0 QT: 237 QTc: 433 Interpretive Statements Possible atrial flutter with rapid ventricular rate INTRAVENTRICULAR CONDUCTION DELAY [130+ ms QRS DURATION] ST ELEVATION, CONSIDER INFERIOR INJURY [MARKED ST ELEVATION W/O NORMALLY INFLECTED T-WAVE IN II/aVF] ACUTE AL Compared to ECG 11/16/2018 22:20:34 Intraventricular conduction delay now present ST (T wave) deviation now present Myocardial infarct finding now present Sinus rhythm no longer present Electronically Signed On 07-11-2021 22:04:49 CARDIOVASCULAR RN by Davi Phillips M.D. [email or web address]/[id number]
--- NOTE | 2021-07-11 09:49 | ED_ITS ---
HPI - General Adult General: Chief complaint: Chest Pain Stated complaint: Chest Pain Time Seen by Provider: 07/11/21 09:49 History of Present Illness: HPI narrative: Mr. Green is a 86-year-old gentleman with history of CAD and stents who presents emergency department due to chest discomfort found to be in SVT. Reports waking up this morning and having some chest pressure in the middle of his chest. It is unclear how often he gets chest discomfort. Moderate intensity. This resolved spontaneously however it did recur at which point he decided to come to the emergency department. He otherwise reports being at his baseline health. Normal p.o. intake. Denies history of known similar episodes. No other specific provoking, exacerbating, or relieving factors identified. Review of Systems General: Reports: 10 or more systems reviewed and unremarkable except in HPI and below PFSH ED PFSH: Medical History (Updated 07/14/21 @ 00:01 by ) Chronic kidney disease, stage III (moderate) Cognitive impairment Colitis Constipation COPD (chronic obstructive pulmonary disease) Coronary artery disease Hyperlipidemia Hypertension Non-ST elevation myocardial infarction (NSTEMI) Surgical History Stented coronary artery 3 stents at [facility] 16 years ago Family History Denies family history of Clotting disorder Chronic kidney disease (CKD) Social History Smoking and tobacco status: former smoker Quit status (tobacco): has quit using tobacco Former quit date comment: Quit smoking few weeks ago Alcohol intake: never Household members: family Housing: House Physical Exam Narrative: EXAM NARRATIVE: GENERAL/CONSTITUTIONAL -somewhat ill-appearing. No acute distress. Eyes - PERRL, no conjunctival injection ENMT - Atraumatic external nose and ears. Moist mucous membranes NECK - supple. trachea midline CARDIOVASCULAR - tachycardic rate and rhythm. 1+ bilateral pulses. No peripheral edema. RESPIRATORY -clear to auscultation bilaterally. No retractions or accessory muscle use. ABDOMEN/GI - Nontender/Nondistended. MSK - Extremities without obvious deformity or tenderness to palpation SKIN - Warm, Dry NEURO - alert and appropriately oriented. strength and sensation intact. Moves all extremities equally. Course ED course: - Patient was seen and evaluated by me at bedside - Patient placed on cardiac monitors, IV access obtained - Initial evaluation notable for mildly ill appearance. Tachycardia, monitor concerning for SVT. - Patient given 6 mg adenosine with successful conversion to sinus rhythm. - Labs notable for mild leukocytosis. Normal hemoglobin. Metabolic panel without acute abnormality to explain patient's symptoms, creatinine similar to baseline. Delta troponin positive, ? Type II versus primary cardiac process - Imaging notable for no acute findings. - Upon serial reexamination after treatment the patient was improved without recurrence of symptoms - Based on patient history, evaluation, labs, and imaging as interpreted the most likely cause of the patient's condition is SVT of unclear etiology and chest pain with NSTEMI - The results of ED evaluation were discussed with the patient including plan for admission due to requirement for level of care not available if discharged to prevent significant worsening/deterioration. -Hospitalist service contacted and agreed admit the patient. - Patient was admitted without further deterioration or significant events. Vital Signs: Vital signs: Vital Signs Temperature 98 F 07/12/21 23:41 Pulse Rate 63 07/13/21 14:30 Respiratory Rate 20 H 07/13/21 14:30 Blood Pressure 147/83 07/13/21 14:30 Pulse Oximetry 98 07/13/21 14:30 MDM - General Adult Medical Records: Attestation: I reviewed the patient's medical records. Lab Data: Attestation: I reviewed the patient's lab results. Labs: Lab Results 07/11/21 07/11/21 07/11/21 09:56 09:56 09:56 WBC 14.5 10^3/uL H 10 ^3/uL (4.0-10.0) RBC 5.13 10^6/uL 10^6 /uL (4.1-5.3) Hgb 15.7 g/dL g/dL (11.7-16.6) Hct 48.4 % % (42.0-52.0) MCV 94.3 fl H fl (80-94) MCH 30.6 pg pg (28.0-34.0) MCHC 32.4 g/dL g/dL (30.0-36.0) RDW 15.8 % H % (12.1-15.1) Plt Count 309 10^3/cmm 10^3 /cmm (130-400) MPV 11.5 fL H fL (7.4-10.4) Neut % (Auto) 71.3 % % Lymph % (Auto) 19.0 % % Sunflower % (Auto) 6.6 % % Eos % (Auto) 1.7 % % Baso % (Auto) 0.8 % % Neut # (Auto) 10.35 10^3/uL H 1 0^3/uL (1.8-7.7) Lymph # (Auto) 2.8 10^3/uL 10^3/ uL (0.8-4.8) Sunflower # (Auto) 1.0 10^3/uL H 10^ 3/uL (0.2-0.9) Eos # (Auto) 0.2 10^3/uL 10^3/ uL (0.0-0.8) Baso # (Auto) 0.1 10^3/uL 10^3/ uL (0.0-0.1) Nucleated RBC % (a uto) 0 % % Nucleated RBCs # 0.0 /100WBC /100W BC Sodium 138 mmol/L mmol/L (136-145) Potassium 4.7 mmol/L mmol/L (3.5-5.1) Chloride 102 mmol/L mmol/L (98-107) Carbon Dioxide 20 mmol/L L mmol/ L (22-29) Anion Gap 20.7 H (5-19) BUN 39 mg/dL H mg/dL (8-23) Creatinine 2.4 mg/dL H mg/dL (0.7-1.2) GFR Calculation Not Reportable Glucose 164 mg/dL H mg/dL (65-115) Calculated Osmolal ity 299 mOsm/kg H mOs m/kg (285-295) Calcium 8.7 mg/dL mg/dL (8.5-10.5) Magnesium 1.9 mg/dL mg/dL (1.7-2.3) Total Bilirubin 0.3 mg/dL mg/dL (0.15-1.2) AST 11 U/L U/L (0-40) ALT 7 U/L U/L (0-41) Alkaline Phosphata se 70 IU/L IU/L (40-130) Troponin T Baselin e 32 ng/L H ng/L (0-15) Troponin T 120 Min eagle Delta Troponin T NT-Pro-B Natriuret Pep Total Protein 7.4 g/dL g/dL (6.6-8.7) Albumin 4.7 g/dL g/dL (3.5-5.2) Globulin 2.7 g/dL g/dL (1.3-4.6) TSH 2.48 uIU/mL uIU/m L (0.27-4.20) 07/11/21 07/11/21 09:56 11:54 WBC RBC Hgb Hct MCV MCH MCHC RDW Plt Count MPV Neut % (Auto) Lymph % (Auto) Sunflower % (Auto) Eos % (Auto) Baso % (Auto) Neut # (Auto) Lymph # (Auto) Sunflower # (Auto) Eos # (Auto) Baso # (Auto) Nucleated RBC % (a uto) Nucleated RBCs # Sodium Potassium Chloride Carbon Dioxide Anion Gap BUN Creatinine GFR Calculation Glucose Calculated Osmolal ity Calcium Magnesium Total Bilirubin AST ALT Alkaline Phosphata se Troponin T Baselin e Troponin T 120 Min eagle 44.93 ng/L H ng/L (0-15) Delta Troponin T 12.93 ABS# H* ABS # (0-10) NT-Pro-B Natriuret Pep 414 pg/mL pg/mL (0-450) Total Protein Albumin Globulin TSH EKG Data^: EKG 1: Attestation: I personally reviewed and interpreted this EKG as follows: EKG interpretation date: 07/11/21 EKG interpretation time: 09:45 Interpretation: Twelve-lead EKG shows a regular rhythm at a rate of 200. Unclear NJ interval, QRS duration 170, QTc 337 Borderline axis. Interpretation: Supraventricular tachycardia. Computer generated interpretation: Chest X-Ray 07/11/21 09:50 IMPRESSION: No acute findings. Radiation Dose CTDIVOL = (mGy): DLP = (mGy-cm) EKG 2: Attestation: I personally reviewed and interpreted this EKG as follows: EKG interpretation date: 07/11/21 EKG interpretation time: 10:15 Interpretation: Twelve-lead EKG shows a regular rhythm at a rate of 97. NJ interval 139, QRS duration 90, QTc 403. Normal axis. Interpretation: Sinus rhythm. Computer generated interpretation: Chest X-Ray 07/11/21 09:50 IMPRESSION: No acute findings. Radiation Dose CTDIVOL = (mGy): DLP = (mGy-cm) EKG 3: Attestation: I personally reviewed and interpreted this EKG as follows: EKG interpretation date: 07/11/21 EKG interpretation time: 11:34 Interpretation: Twelve-lead EKG shows a regular rhythm at a rate of 77. NJ interval 155, QRS duration 86, QTc 399. Normal axis. Interpretation: Sinus rhythm. Computer generated interpretation: Chest X-Ray 07/11/21 09:50 IMPRESSION: No acute findings. Radiation Dose CTDIVOL = (mGy): DLP = (mGy-cm) Critical Care Time Critical Care Time: Critical Care Time: Yes Total Critical Care Time: 35 Attestation: This case had a high probability of a clinically significant, sudden, or life threatening deterioration of this patient's condition which required my full and direct attention, intervention and personal management. Discharge Plan Discharge Patient Disposition: Placed in Observation Admit Provider: Joshua Bernard Clinical Impression: Chest pain, SVT (supraventricular tachycardia) Discharge Diet: Cardiac Discharge Activity: Increase activity as tolerated Coding Level of Care Code ED Tool And Die Machinist for Chg Jacques
--- NOTE | 2021-07-11 09:50 | XRR_ITS ---
PROCEDURE INFORMATION: Exam: XR Chest Exam date and time: 07/11/2021 9:50 AM Age: 86 years old Clinical indication: Other: Tachycardia TECHNIQUE: Imaging protocol: XR of the chest. Views: 1 view. COMPARISON: CT chest con [id number] 10/07/2020 4:11 AM FINDINGS: Lungs: Unremarkable. No consolidation. Pleural spaces: Unremarkable. No pleural effusion. No pneumothorax. Heart/Mediastinum: Unremarkable. No cardiomegaly. Bones/joints: Unremarkable. XR/XR chest 1V portable [id number] IMPRESSION: No acute findings. Radiation Dose CTDIVOL = (mGy): DLP = (mGy-cm)
--- NOTE | 2021-07-11 09:50 | ECG_ITS ---
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 Measurements Intervals [place] Rate: 97 P: 81 AR: 139 QRS: 90 QRSD: 90 T: 80 QT: 348 QTc: 444 Interpretive Statements SINUS RHYTHM POSSIBLE RIGHT ATRIAL ENLARGEMENT [0.25mV P-WAVE] Compared to ECG 07/11/2021 09:45:55 Intraventricular conduction delay no longer present ST (T wave) deviation no longer present Myocardial infarct finding no longer present Electronically Signed On 07-11-2021 22:05:17 DONKEY RIDE OPERATOR by Davi Phillips M.D. [id number] f
[2021-07-11] MEDS: sodium chloride 0.9% 1,000 ML 999 ML IV ×2 (10:03→10:58)
[2021-07-11] MEDS: adenosine 3 mg/mL SDV 2mL 6 MG IVP (10:04)
[2021-07-11 10:47] LABS: Basophils # 0.1 10^3/uL (0.0-0.1); Basophils % 0.8 %; Eosinophils # 0.2 10^3/uL (0.0-0.8); Eosinophils % 1.7 %; Hematocrit 48.4 % (42.0-52.0); Hemoglobin 15.7 g/dL (11.7-16.6); Lymphocytes # 2.8 10^3/uL (0.8-4.8); Mean Corpuscular HGB Conc 32.4 g/dL (30.0-36.0); Mean Corpuscular Hemoglobin 30.6 pg (28.0-34.0); Mean Corpuscular Volume 94.3 fl (80-94); Mean Platelet Volume 11.5 fL (7.4-10.4); Monocytes % 6.6 %; Neutrophils # 10.35 10^3/uL (1.8-7.7); Neutrophils % 71.3 %; Nucleated Red Blood Cells % 0 %; Platelet Count 309 10^3/cmm (130-400); Red Blood Count 5.13 10^6/uL (4.1-5.3); Red Cell Distribution Width 15.8 % (12.1-15.1); White Blood Count 14.5 10^3/uL (4.0-10.0)
[2021-07-11 10:56] LABS: Troponin(5th) Baseline 32 ng/L (0-15)
[2021-07-11 11:03] LABS: Alanine Aminotransferase 7 U/L (0-41); Albumin Level 4.7 g/dL (3.5-5.2); Alkaline Phosphatase 70 IU/L (40-130); Anion Gap 20.7 (5-19); Aspartate Amino Transferase 11 U/L (0-40); Blood Urea Nitrogen 39 mg/dL (8-23); Calcium 8.7 mg/dL (8.5-10.5); Carbon Dioxide 20 mmol/L (22-29); Chloride 102 mmol/L (98-107); Globulin 2.7 g/dL (1.3-4.6); Glucose 164 mg/dL (65-115); Magnesium 1.9 mg/dL (1.7-2.3); Osmolality Calculated 299 mOsm/kg (285-295); Potassium 4.7 mmol/L (3.5-5.1); Sodium 138 mmol/L (136-145); Thyroid Stimulating Hormone 2.48 uIU/mL (0.27-4.20); Total Bilirubin 0.3 mg/dL (0.15-1.2); Total Protein 7.4 g/dL (6.6-8.7)
--- NOTE | 2021-07-11 11:50 | ECG_ITS ---
[facility] Test Date: 2021-07-11 Pat Name: Jimenez Green Department: Room: 256 Gender: Male Apprentice Architect: : 1935 Requested By: Sahil Johnson Order Number: [id number] Samia MD: Davi Phillips M.D. Measurements Intervals [place] Rate: 77 P: 78 NC: 155 QRS: 90 QRSD: 86 T: 85 QT: 367 QTc: 418 Interpretive Statements SINUS RHYTHM Compared to ECG 07/11/2021 10:09:26 No significant changes Electronically Signed On 07-11-2021 22:16:44 GASOLINE PLANT OPERATOR by Davi Phillips M.D. [email or web address] [email or web address]/store/[id number] f
--- NOTE | 2021-07-11 12:03 | PC.NURSE ---
Denies any and all chest pain. AOx 4 Very Hard of hearing.
[2021-07-11 12:40] LABS: Troponin 5 2HR 44.93 ng/L (0-15)
[2021-07-11 12:44] LABS: Troponin 5 2HR Delta 12.93 ABS# (0-10)
--- NOTE | 2021-07-11 12:45 | PC.NURSE ---
Delta Troponin 12.93 reported to Anyi THORNE and Dr. Bernard.
--- NOTE | 2021-07-11 13:01 | PC.NURSE ---
Gave report to floor nurse Kiana, then Dr Bernard came, assessed and decided to change pt to ICU. Report called to ICU nurse Trini THORNE. Pt stable and ready to be taken to floor with RN and monitor.
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
--- NOTE | 2021-07-11 13:21 | USCV_ITS ---
Norma Jimenez Age: 86 Gender: M : 1935 Exam Date: 07/11/2021 14:49 Ordering Phys: Joshua Bernard MD Technologist: Molly De La Fuente [place] [facility] [place]: Shortness of breath BP: 122 / 82 HR: 78 Rhythm: Sinus Technical Quality: Technically difficult study MEASUREMENTS (Male / Female) Normal Values 2D ECHO LV Diastolic Diameter PLAX 2.6 cm 4.2 - 5.9 / 3.9 - 5.3 cm LV Systolic Diameter PLAX 1.6 cm LV Chamber Size 3.2 cm IVS Diastolic Thickness 2.0 cm 0.6 - 1.0 / 0.6 - 0.9 cm IVS Systolic Thickness 2.0 cm LVPW Diastolic Thickness 1.0 cm 0.6 - 1.0 / 0.6 - 0.9 cm LVPW Systolic Thickness 1.1 cm RV Chamber Size 1.8 cm LVOT Diameter 2.3 cm LV Ejection Fraction 2D Teich 69.3 % LV Ejection Fraction MOD 2C 54.1 % LV Ejection Fraction 2C AL 54.3 % LA Diameter 1.4 cm LA Width 2.4 cm LA Height 4.1 cm RA Width 2.3 cm RA Height 3.8 cm DOPPLER AV Peak Velocity 125.0 cm/s LVOT Peak Velocity 128.0 cm/s AV Area Cont Eq vti 4.4 cm squared AV Area Cont Eq pk 4.2 cm squared MV Area PHT 4.9 cm squared Mitral E to A Ratio 1.0 MV E' Velocity 42.0 cm/s Mitral E to MV E' Ratio 9.6 Mitral E to LV E' Lateral Ratio 9.7 Mitral E to LV E' Septal Ratio 9.6 TR Peak Velocity 258.0 cm/s TR Peak Gradient 26.6 mmHg TV Peak E Velocity 43.0 cm/s Right Atrial Pressure 3.0 mmHg Pulmonary Artery Systolic Pressu 29.6 mmHg FINDINGS Left Ventricle Normal left ventricular size and systolic function, EF 59 %. No regional wall motion abnormalities. Right Ventricle The right ventricle is normal in size and function. Right Atrium The right atrium is normal in size. Left Atrium The left atrium is normal in size. Mitral Valve Thickened mitral valve. Trace mitral valve regurgitation. Aortic Valve Thickened aortic valve. Tricuspid Valve No gross abnormality noted Pulmonic Valve Pulmonic valve not well visualized. Pericardium No pericardial effusion. Aorta Normal ascending aorta dimension. CONCLUSIONS Normal left ventricular size and systolic function, EF 59 %. No regional wall motion abnormalities. Thickened mitral valve. Trace mitral valve regurgitation. Thickened aortic valve. There is no pericardial effusion. There are no intracardiac masses. Technically somewhat difficult study Dr Davi Phillips MD FAC (Electronically Signed) Final Date: 11 July 2021 19:12 S
--- NOTE | 2021-07-11 13:21 | USCV_ITS ---
Jimenez Green Age: 86 Gender: M : 1935 Exam Date: 07/11/2021 14:32 Ordering Phys: Joshua Bernard MD Technologist: Molly De La Fuente Exam Location: [facility] [place] Indication: DVT HISTORY: Shortness of breath. ? DVT PROCEDURES: Comparison: 06-18-2018. Venous duplex imaging was performed in bilateral lower extremities. The following venous structures were evaluated: common femoral vein, profunda vein, proximal portion of the greater saphenous vein, superficial femoral vein, and the popliteal vein. In addition, the posterior tibial and peroneal trunk were evaluated. Serial compression, augmentation maneuvers, and spectral Doppler flow evaluation were performed. FINDINGS: No evidence of DVT seen in any vessel visualized at this time. The veins were found to be easily compressible with spontaneous blood flow. Non pulsatile flow pattern. CONCLUSIONS No evidence of DVT in the above-mentioned identifiable veins. Dr Davi Phillips MD [facility] (Electronically Signed) Final Date: 11 July 2021 19:13 S
[2021-07-11 14:30] LABS: NT Pro B Type Natriuretic Pept 414 pg/mL (0-450)
[2021-07-11] MEDS: metoprolol tartrate 25 mg Tablet PO (14:32)
[2021-07-11] MEDS: magnesium sulfate premix 2 GM/50 ML PIGGYBACK IV (14:32)
[2021-07-11] MEDS: enoxaparin 100 mg/mL Syringe 50 MG SUBCUT (14:34)
--- NOTE | 2021-07-11 15:10 | PC.NURSE ---
echo in progress
--- NOTE | 2021-07-11 15:50 | ECG_ITS ---
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 Measurements Intervals Oden Rate: 69 P: 75 HI: 150 QRS: 84 QRSD: 90 T: 84 QT: 381 QTc: 411 Interpretive Statements SINUS RHYTHM Compared to ECG 07/11/2021 11:32:57 No significant changes Electronically Signed On 07-11-2021 22:19:03 [employer] by Davi Phillips M.D. [email or web address] infantsNitric Biopremier [facility] atrium [facility] centerWeMedia Alliance/store/[id number]
[2021-07-11] MEDS: famotidine 20 mg Tablet PO (17:03)
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
--- NOTE | 2021-07-11 17:10 | PC.NURSE ---
1310 recd. from [email or web address] per cart. assistedto bed by staff. very hard of hearing.
--- NOTE | 2021-07-11 17:13 | PC.NURSE ---
watching tv since admission. no c/o. voiding per urinal, smaller amts.
[2021-07-11 19:00] LABS: D Dimer 0.28 ug/mIFEU (0-0.59)
[2021-07-11 19:15] LABS: Troponin 5 6HR 88.01 ng/L (0-15)
[2021-07-11 19:36] LABS: Troponin 5 6HR Delta 56.01 ng/L (0-12)
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
--- NOTE | 2021-07-11 20:52 | PC.NURSE ---
Dr. Phillips roundbrenda this evening. Would like son to call and discuss POC tomorrow when present.
[2021-07-11] MEDS: atorvastatin 40 mg Tablet 80 MG PO (21:21)
[2021-07-11] MEDS: clopidogrel 300 mg Tablet PO (23:00)
[2021-07-12] VITALS (71 sets, daily range): BP systolic 105–182; BP diastolic 59–111; PULSE 51–85; RESP 13–24; TEMP 36.6–37.1; O2SAT 83–100
[2021-07-12] MEDS: metoprolol tartrate 25 mg Tablet PO ×2 (02:23→13:18)
[2021-07-12 03:25] LABS: Basophils # 0.1 10^3/uL (0.0-0.1); Basophils % 0.7 %; Eosinophils # 0.3 10^3/uL (0.0-0.8); Eosinophils % 2.6 %; Hematocrit 41.2 % (42.0-52.0); Lymphocytes # 1.6 10^3/uL (0.8-4.8); Lymphocytes % 14.8 %; Mean Corpuscular HGB Conc 31.6 g/dL (30.0-36.0); Mean Corpuscular Hemoglobin 30.9 pg (28.0-34.0); Mean Corpuscular Volume 97.9 fl (80-94); Mean Platelet Volume 11.8 fL (7.4-10.4); Monocytes # 0.9 10^3/uL (0.2-0.9); Monocytes % 7.9 %; Neutrophils # 7.94 10^3/uL (1.8-7.7); Neutrophils % 73.5 %; Nucleated Red Blood Cells % 0 %; Platelet Count 210 10^3/cmm (130-400); Red Blood Count 4.21 10^6/uL (4.1-5.3); Red Cell Distribution Width 16.3 % (12.1-15.1); White Blood Count 10.8 10^3/uL (4.0-10.0)
--- NOTE | 2021-07-12 03:44 | PC.NURSE ---
Patient resting in bed overnight. No s/s of distress nor complaints. Continue care.
[2021-07-12 03:56] LABS: Alanine Aminotransferase 6 U/L (0-41); Albumin Level 3.8 g/dL (3.5-5.2); Alkaline Phosphatase 52 IU/L (40-130); Blood Urea Nitrogen 36 mg/dL (8-23); Calcium 8.1 mg/dL (8.5-10.5); Carbon Dioxide 19 mmol/L (22-29); Chloride 108 mmol/L (98-107); Chol HDL Ratio 3.84 mg/dL (1.0-5.00); Cholesterol 165 mg/dL (0-200); Globulin 2.4 g/dL (1.3-4.6); Glucose 76 mg/dL (65-115); HDL Cholesterol 43 mg/dL (60-100); LDL Cholesterol Calculated 103 mg/dL (50-129); Magnesium 2.1 mg/dL (1.7-2.3); Osmolality Calculated 291 mOsm/kg (285-295); Phosphorus 2.9 mg/dL (2.5-4.5); Sodium 137 mmol/L (136-145); Total Bilirubin 0.2 mg/dL (0.15-1.2); Total Protein 6.2 g/dL (6.6-8.7); Triglycerides 93 mg/dL (0-150)
[2021-07-12 04:14] LABS: Anion Gap 15.3 (5-19); Aspartate Amino Transferase 12 U/L (0-40); Potassium 5.3 mmol/L (3.5-5.1)
[2021-07-12 05:48] LABS: Estmated Average Glucose 120; Hemoglobin A1C 5.8 % (4.0-6.0)
--- NOTE | 2021-07-12 06:10 | PC.NURSE ---
Shift Note Frequent safety and comfort rounds continue. Orders and/or nursing care completed as indicated. Patient monitored for response to intervention and treatment(s). Education provided includes cardiac diet. Patient and/or loss prevention representative reinforcement needed. Will continue to monitor.
[2021-07-12] MEDS: clopidogrel 75 mg Tablet PO (08:07)
[2021-07-12] MEDS: aspirin 81 mg EC Tablet PO (08:07)
[2021-07-12] MEDS: famotidine 20 mg Tablet PO ×2 (08:07→17:28)
--- NOTE | 2021-07-12 10:00 | PC.NURSE ---
Patient was sitting up in bed this AM and was able to sit on edge of bed and transfer self to bedside commode.
--- NOTE | 2021-07-12 10:09 | PC.CHAP ---
Pastoral Care Encounter/Spiritual Assessment Type of Contact [x] Declined pan puller visit [] Patient/Family/Request visit [] Outpatient visit [] Follow-up visit [] Physician referral [] Code/Alert [] Routine visit [] Staff referral [] Actively dying [] Patient sleeping [] Family support [] [] Out of room [] Palliative care [] [] Receiving care in room [] Pre-surgical visit [] Trauma [] Long length of stay [] ICU visit [] Other: Relational/Emotional Strength [] Patient feels connected with others/family/visitors/staff [] Distress [] Loneliness/isolation [] Abandonment Spirituality of Patient [] Person of Marlene [] Attends Yarsani of their Marlene [] Believes in Prayer [] Reads Bible or Scientologist materials [] There are Spiritual issues to be addressed Car Oiler Interventions [] Prayer [] Active listening [] Non-anxious presence [] Spiritual/emotional support [] Crisis/trauma care [] Spiritual counseling [] Bereavement support [] Provided bereavement packet [] Provided Bible/devotional materials [] Provided toy/stuffed animal, coloring book to patient or family member [] Provided Communion [] Anointing/[place] [] Salvation [] Completed spiritual assessment [] Other: Impact on Illness or Injury [] Angry [] Fearful [] Anxious [] Often cries [] Exhaustion [] Unable to work [] Unable to attend yazdanism [] Unable to walk/stand [] Unable to read [] Unable to drive [] Unable to eat/drink [] Unable to sleep [] Unable to be with family [] Patient intubated [] Other: Summary Time spent with patient
[2021-07-12] MEDS: enoxaparin 100 mg/mL Syringe 50 MG SUBCUT (13:19)
[2021-07-12 13:41] LABS: Troponin T (5th) Once 48 ng/L (0-15)
--- NOTE | 2021-07-12 14:40 | PM.PN ---
Subjective Subjective: Interval history: Patient denies any chest pain or chest tightness. Extremely hard of hearing. No shortness of breath. Vital signs are stable. Medications: Reviewed: Yes Medication Review Details: Current Medications Acetaminophen (Acetaminophen 325 Mg Tablet) 650 mg PO Q6H PRN PRN Reason: Mild/Mod Pain Or Temp >/= 101 Aspirin (Aspirin 81 Mg Ec Tablet) 81 mg PO DAILY COUNTS INCLUDE 234 BEDS AT THE [facility] Last Admin: 07/12/21 08:07 Dose: 81 mg Documented by: Atorvastatin Calcium (Atorvastatin 40 Mg Tablet) 80 mg PO BEDTIME COUNTS INCLUDE 234 BEDS AT THE [facility] Last Admin: 07/11/21 21:21 Dose: 80 mg Documented by: Clopidogrel Bisulfate (Clopidogrel 75 Mg Tablet) 75 mg PO DAILY COUNTS INCLUDE 234 BEDS AT THE [facility] Last Admin: 07/12/21 08:07 Dose: 75 mg Documented by: Enoxaparin Sodium (Enoxaparin 100 Mg/Ml Syringe) 50 mg 1 mg/kg (50 mg) SUBCUT Q24H COUNTS INCLUDE 234 BEDS AT THE [facility] Last Admin: 07/12/21 13:19 Dose: 50 mg Documented by: Famotidine (Famotidine 20 Mg Tablet) 20 mg PO BID COUNTS INCLUDE 234 BEDS AT THE [facility] Last Admin: 07/12/21 08:07 Dose: 20 mg Documented by: Metoprolol Tartrate (Metoprolol Tartrate 25 Mg Tablet) 25 mg PO Q12H COUNTS INCLUDE 234 BEDS AT THE [facility] Last Admin: 07/12/21 13:18 Dose: 25 mg Documented by: Naloxone HCl (Naloxone 0.4 Mg/Ml Sdv) 0.1 mg IVP Q2M PRN PRN Reason: OPIATERV Nitroglycerin (Nitroglycerin 0.4 Mg Sublingual Tablet) 0.4 mg SUBLINGUAL Q5M PRN PRN Reason: CHEST PAIN Ondansetron HCl (Ondansetron 2 Mg/Ml Sdv 2 Ml) 4 mg IVP Q8H PRN PRN Reason: vomiting, or N/V if npo Vitals/I&O/Wt Last Vital Signs Temp 97.7 F 07/11/21 13:30 Pulse 74 07/12/21 14:00 Resp 20 H 07/12/21 14:00 BP 182/111 07/12/21 14:00 Pulse Ox 100 07/12/21 14:00 07/11/21 07/12/21 07/12/21 22:59 06:59 14:59 Intake Total 350 / 2710 30 / 2740 240 / 240 Output Total 150 / 350 350 / 700 300 / 300 Balance 200 / 2360 -320 / 2040 -60 / -60 Weight last 48 hrs Weight 120 lb Weight 120 lb Physical Exam Narrative: EXAM NARRATIVE: GENERAL: The patient is alert and oriented times two.Not in any acute distress. Extremely hard of hearing HEENT: Moderate pallor. No icterus or lymphadenopathy. The pupils are symmetrical. Oral cavity: There are no mucous membrane lesions. NECK: Trachea appears to be central. No masses noted. No JVD or thyromegaly appreciated. No carotid bruit. RESPIRATORY: Chest is symmetrical. No intercostals muscle retraction or any accessory muscle activation. There is no chest wall tenderness. Breath sounds are heard bilaterally. No rales or rhonchi heard. No evidence of any consolidation. BREASTS: Deferred. HEART: The heart sounds are normal. No S3 or S4. Short systolic murmur in the left sternal border. No diastolic murmurs. ABDOMEN: No vessel pulsations or distention. No tenderness. No organomegaly appreciated. No abdominal bruit. Bowel sounds are normally heard. : Deferred. RECTAL: Deferred. LYMPHATIC: No lymphadenopathy noted in the neck or groin. EXTREMITIES: No edema or cyanosis. No clubbing. The peripheral pulses are weak bilaterally MUSCULOSKELETAL: No acute joint deformities or swelling SKIN: There are no significant scars or skin rash noted. NEUROPSYCHIATRIC: The patient is alert and oriented x2. Appears to be in a good mood. The higher functions are grossly within normal limits. No tremors or rigidity noted. Data : 07/12/21 02:36 07/12/21 02:36 A&P Assessment and plan (1) SVT (supraventricular tachycardia): Patient had a heart rate over 200 with the SVT. Currently is back into sinus rhythm. Cannot rule out atrial flutter. His EKG is suggestive of inferolateral wall ischemia. He may be started on metoprolol 25 mg p.o. twice daily. Status: Acute (2) Non-ST elevation myocardial infarction (NSTEMI): Patient may be kept on the Plavix and aspirin. May discontinue the heparin tomorrow Status: Acute (3) Chronic kidney disease: May continue on the current measures. Status: Acute Qualifiers: Chronic kidney disease stage: stage 3 (moderate) Chronic kidney disease stage 3 subtype: stage 3b (GFR 30-44) Qualified Code(s): N18.32 - Chronic kidney disease, stage 3b (4) Hypertension: Currently seems to be normotensive. May continue on the current medications. Status: Acute Qualifiers: Hypertension type: primary hypertension Qualified Code(s): I10 - Essential (primary) hypertension (5) Hyperlipidemia: Continue on the Lipitor. Status: Acute Qualifiers: Hyperlipidemia type: mixed hyperlipidemia Qualified Code(s): E78.2 - Mixed hyperlipidemia Additional A&P Information The other problems are Mild hypokalemia Hearing impairment Degenerative joint disease the patient apparently does not want to undergo any invasive or interventional procedures. I talked to his son Scott about this. According to the son, whatever his dad decides will be okay with him. Dr. Bernard also is going to talk to the patient about this. If he disagrees with any invasive procedures, but continues to remain stable, then he might be able to go home tomorrow ADDENDUM-3:35 PM Discussed with the patient about doing a stress test.(Had to shout at his ears, to make him understand). He is family opposed to any stress test or angiogram. At this point, we will optimize his medical treatment. I may add amlodipine 5 mg p.o. daily in addition to the current medications, to better control the blood pressure. His troponin T is trending down. The latest troponin T level is 48. Attestations Medical Necessity Statement*: Patient requires continued hospital stay for close monitoring and further management Coding Level of Care Code Acute Soap Chipper for [facility] Fwd History Detailed Exam Detailed Medical Decision Making Moderate Complexity Diagnoses SVT (supraventricular tachycardia) I47.1 Non-ST elevation myocardial infarction (NSTEMI) I21.4 Chronic kidney disease N18.32 Chronic kidney disease stage: stage 3 (moderate) Chronic kidney disease stage 3 subtype: stage 3b (GFR 30-44) Hypertension I10 Hypertension type: primary hypertension Hyperlipidemia E78.2 Hyperlipidemia type: mixed hyperlipidemia
[2021-07-12] MEDS: amlodipine 5 mg Tablet PO (15:27)
--- NOTE | 2021-07-12 15:40 | PC.NURSE ---
Patient arrived to CSU from ICU. Patient is alert and oriented but very hard of hearing. Patient blood pressure was high upon arrival but shortly returned to normal limits with out intervention. Patient VS have been stable. Patient has been oriented to room, use of call segovia, and TV. Nurse will continue to monitor.
--- NOTE | 2021-07-12 15:56 | PC.NURSE ---
Dr. Phillips and this nurse were at bedside and discussed angiogram and a stress test with patient before dishcarge. Patient refused both. Son was informed of fathers decision.
--- NOTE | 2021-07-12 15:59 | PC.NURSE ---
Patient was transferred to CSU via wheelchair on room air. Staff met us at bedside and assisted in getting patient settled in room. All belongings placed in closet.
--- NOTE | 2021-07-12 17:45 | PC.NURSE ---
Patient had incident when getting up to use the restroom. Patient got a minor abrasion on his left eyebrow. Patient did not fall, but slipped and hit the side of the door. Patient is has no pain , no bruising or swelling is present.
[2021-07-12] MEDS: atorvastatin 40 mg Tablet 80 MG PO (21:23)
[2021-07-13 04:00] VITALS: BP 130/74; PULSE 85; RESP 20; O2SAT 98
[2021-07-13 04:42] VITALS: PULSE 59
[2021-07-13 06:17] LABS: Basophils # 0.1 10^3/uL (0.0-0.1); Basophils % 0.8 %; Eosinophils # 0.3 10^3/uL (0.0-0.8); Eosinophils % 3.1 %; Hematocrit 39.3 % (42.0-52.0); Hemoglobin 12.5 g/dL (11.7-16.6); Lymphocytes # 1.3 10^3/uL (0.8-4.8); Lymphocytes % 12.3 %; Mean Corpuscular HGB Conc 31.8 g/dL (30.0-36.0); Mean Corpuscular Hemoglobin 30.6 pg (28.0-34.0); Mean Corpuscular Volume 96.3 fl (80-94); Mean Platelet Volume 10.9 fL (7.4-10.4); Monocytes # 0.8 10^3/uL (0.2-0.9); Monocytes % 7.7 %; Neutrophils # 7.98 10^3/uL (1.8-7.7); Neutrophils % 75.6 %; Nucleated Red Blood Cells % 0 %; Platelet Count 202 10^3/cmm (130-400); Red Blood Count 4.08 10^6/uL (4.1-5.3); Red Cell Distribution Width 15.9 % (12.1-15.1); White Blood Count 10.6 10^3/uL (4.0-10.0)
[2021-07-13 06:54] LABS: Alanine Aminotransferase 6 U/L (0-41); Albumin Level 3.7 g/dL (3.5-5.2); Alkaline Phosphatase 49 IU/L (40-130); Anion Gap 13.2 (5-19); Aspartate Amino Transferase 9 U/L (0-40); Blood Urea Nitrogen 35 mg/dL (8-23); Calcium 8.3 mg/dL (8.5-10.5); Carbon Dioxide 21 mmol/L (22-29); Chloride 109 mmol/L (98-107); Globulin 2.4 g/dL (1.3-4.6); Glucose 80 mg/dL (65-115); Magnesium 1.9 mg/dL (1.7-2.3); Osmolality Calculated 293 mOsm/kg (285-295); Phosphorus 2.7 mg/dL (2.5-4.5); Potassium 5.2 mmol/L (3.5-5.1); Sodium 138 mmol/L (136-145); Total Bilirubin 0.3 mg/dL (0.15-1.2); Total Protein 6.1 g/dL (6.6-8.7)
[2021-07-13 08:00] VITALS: BP 173/96; PULSE 82; RESP 20; O2SAT 98
[2021-07-13] MEDS: metoprolol tartrate 25 mg Tablet PO ×2 (09:32→11:07)
[2021-07-13] MEDS: clopidogrel 75 mg Tablet PO (09:33)
[2021-07-13] MEDS: aspirin 81 mg EC Tablet PO (09:33)
[2021-07-13] MEDS: famotidine 20 mg Tablet PO (09:33)
[2021-07-13] MEDS: amlodipine 5 mg Tablet PO (09:33)
--- NOTE | 2021-07-13 09:41 | PM.PN ---
Subjective Subjective: Interval history: The patient is feeling okay. Has not had any recurrence of chest pain no shortness of breath. Telemetry shows normal sinus rhythm. No recurrence of SVT or a flutter. No new symptoms. Patient consistently refused to undergo any stress tests or invasive procedures. I am feeling fine. I need to go home . Medications: Reviewed: Yes Medication Review Details: Current Medications Acetaminophen (Acetaminophen 325 Mg Tablet) 650 mg PO Q6H PRN PRN Reason: Mild/Mod Pain Or Temp >/= 101 Amlodipine Besylate (Amlodipine 5 Mg Tablet) 5 mg PO DAILY [facility] [place] Last Admin: 07/13/21 09:33 Dose: 5 mg Documented by: Aspirin (Aspirin 81 Mg Ec Tablet) 81 mg PO DAILY [facility] Last Admin: 07/13/21 09:33 Dose: 81 mg Documented by: Atorvastatin Calcium (Atorvastatin 40 Mg Tablet) 80 mg PO BEDTIME [facility] Last Admin: 07/12/21 21:23 Dose: 80 mg Documented by: Clopidogrel Bisulfate (Clopidogrel 75 Mg Tablet) 75 mg PO DAILY [facility] [place] Last Admin: 07/13/21 09:33 Dose: 75 mg Documented by: Enoxaparin Sodium (Enoxaparin 100 Mg/Ml Syringe) 50 mg 1 mg/kg (50 mg) SUBCUT Q24H [facility] [place] Last Admin: 07/12/21 13:19 Dose: 50 mg Documented by: Famotidine (Famotidine 20 Mg Tablet) 20 mg PO BID [facility] [place] Last Admin: 07/13/21 09:33 Dose: 20 mg Documented by: Metoprolol Tartrate (Metoprolol Tartrate 25 Mg Tablet) 25 mg PO Q12H [facility] [place] Last Admin: 07/13/21 09:32 Dose: 25 mg Documented by: Naloxone HCl (Naloxone 0.4 Mg/Ml Sdv) 0.1 mg IVP Q2M PRN PRN Reason: OPIATERV Nitroglycerin (Nitroglycerin 0.4 Mg Sublingual Tablet) 0.4 mg SUBLINGUAL Q5M PRN PRN Reason: CHEST PAIN Ondansetron HCl (Ondansetron 2 Mg/Ml Sdv 2 Ml) 4 mg IVP Q8H PRN PRN Reason: vomiting, or N/V if npo Vitals/I&O/Wt Last Vital Signs Temp 98 F 07/12/21 23:41 Pulse 82 07/13/21 08:00 Resp 20 H 07/13/21 08:00 BP 173/96 07/13/21 08:00 Pulse Ox 98 07/13/21 08:00 07/12/21 07/13/21 07/13/21 22:59 06:59 14:59 Intake Total 286 / 526 200 / 726 Balance 286 / 226 200 / 426 Weight last 48 hrs Weight 120 lb Physical Exam Narrative: EXAM NARRATIVE: GENERAL: The patient is alert and oriented times two.Not in any acute distress. Extremely hard of hearing HEENT: Moderate pallor. No icterus or lymphadenopathy. The pupils are symmetrical. Oral cavity: There are no mucous membrane lesions. NECK: Trachea appears to be central. No masses noted. No JVD or thyromegaly appreciated. No carotid bruit. RESPIRATORY: Chest is symmetrical. No intercostals muscle retraction or any accessory muscle activation. There is no chest wall tenderness. Breath sounds are heard bilaterally. No rales or rhonchi heard. No evidence of any consolidation. BREASTS: Deferred. HEART: The heart sounds are normal. No S3 or S4. Short systolic murmur in the left sternal border. No diastolic murmurs. ABDOMEN: No vessel pulsations or distention. No tenderness. No organomegaly appreciated. No abdominal bruit. Bowel sounds are normally heard. : Deferred. RECTAL: Deferred. LYMPHATIC: No lymphadenopathy noted in the neck or groin. EXTREMITIES: No edema or cyanosis. No clubbing. The peripheral pulses are weak bilaterally MUSCULOSKELETAL: No acute joint deformities or swelling SKIN: There are no significant scars or skin rash noted. NEUROPSYCHIATRIC: The patient is alert and oriented x2. Appears to be in a good mood. The higher functions are grossly within normal limits. No tremors or rigidity noted. Data : 07/13/21 05:56 07/13/21 05:56 A&P Assessment and plan (1) SVT (supraventricular tachycardia): Patient has not had a recurrence of SVT since the hospital admission. His heart rhythm stayed normal sinus throughout. He is currently on metoprolol 25 mg p.o. twice daily. He has been tolerating medications well so far. Status: Resolved (2) Non-ST elevation myocardial infarction (NSTEMI): Patient may be kept on the Plavix and aspirin. Apparently the patient is not wanting to undergo any invasive or noninvasive procedures. We will try to optimize his medical treatment. Status: Resolved (3) Chronic kidney disease: May continue on the current measures. Kidney function appears to be stable. Status: Chronic Qualifiers: Chronic kidney disease stage: stage 3 (moderate) Chronic kidney disease stage 3 subtype: stage 3b (GFR 30-44) Qualified Code(s): N18.32 - Chronic kidney disease, stage 3b (4) Hypertension: A blood pressure has been staying high since yesterday. The patient has any specific symptoms. He was started on amlodipine 5 mg yesterday. We may continue the same. We will closely monitor the blood pressure. Status: Acute Qualifiers: Hypertension type: primary hypertension Qualified Code(s): I10 - Essential (primary) hypertension (5) Hyperlipidemia: Continue on the Lipitor. Status: Acute Qualifiers: Hyperlipidemia type: mixed hyperlipidemia Qualified Code(s): E78.2 - Mixed hyperlipidemia Additional A&P Information The other problems are Mild hyperkalemia Hearing impairment Degenerative joint disease The patient is vehemently opposed to undergo any stress test or invasive procedures. If the patient continues remain stable, he may be discharged from a cardiac standpoint. Please make an appointment to be seen at [facility] in a week by the nurse practitioner. I may see him in the office in 1 month. Attestations Medical Necessity Statement*: Possible discharge home today Coding Level of Care Code Acute Fiberglass Laminator for Kiana Jacques Medical Decision Making Moderate Complexity Diagnoses SVT (supraventricular tachycardia) I47.1 Non-ST elevation myocardial infarction (NSTEMI) I21.4 Chronic kidney disease N18.32 Chronic kidney disease stage: stage 3 (moderate) Chronic kidney disease stage 3 subtype: stage 3b (GFR 30-44) Hypertension I10 Hypertension type: primary hypertension Hyperlipidemia E78.2 Hyperlipidemia type: mixed hyperlipidemia
[2021-07-13 12:00] VITALS: BP 147/83; PULSE 63; RESP 20; O2SAT 98
--- NOTE | 2021-07-13 12:03 | P.DS_ITS ---
Discharge Providers Date of Admission: 07/11/21 13:00 Date of Discharge: July 13, 2021 Attending Provider at Admission: Joshua Bernard MD Attending Provider at Discharge: Justin Mays MD Primary Care Provider: Adama Olmedo MD Diagnoses at Discharge Discharge Diagnosis (1) SVT (supraventricular tachycardia): Status: Resolved (2) Non-ST elevation myocardial infarction (NSTEMI): Status: Resolved (3) Chronic kidney disease: Status: Chronic Qualifiers: Chronic kidney disease stage: stage 3 (moderate) Chronic kidney disease stage 3 subtype: stage 3b (GFR 30-44) Qualified Code(s): N18.32 - Chronic kidney disease, stage 3b (4) Hypertension: Status: Acute Qualifiers: Hypertension type: primary hypertension Qualified Code(s): I10 - Essential (primary) hypertension (5) Hyperlipidemia: Status: Acute Qualifiers: Hyperlipidemia type: mixed hyperlipidemia Qualified Code(s): E78.2 - Mixed hyperlipidemia Reason for Visit Reason for Visit: Chest Pain Hospital Course Hospital Course 86 year old male with a past medical history of CAD status post stenting, CKD stage III, COPD, hypertension, hyperlipidemia, who presents to [facility] due to complaints of chest pain and shortness of breath. Was admitted for management of chest pain. During the hospital stay further work-up revealed NSTEMI. He was kept on ACS protocol (therapeutic anticoagulation starting beta-blockers, aspirin Plavix), 2D echo: Done during the hospital stay showed normal LV size and systolic function with EF of 59% no wall RWMA, no gross valvular abnormality. Patient was advised to undergo stress test, which the family as well as patient denied, they want, conservative medical management no interventions. Patient also had a episode of SVT during the hospital stay responded to adenosine, thereafter he remained in sinus. Lower extremity Doppler vein done during the hospital stay was negative for DVT. Patient was discharged on aspirin Plavix statin, metoprolol tartrate, sublingual nitro as needed. Patient was also started on amlodipine 5 mg p.o. daily for better blood pressure control, he will continue to follow cardiology as an outpatient as well as primary care physician.Patient responded well to above medical management and is being discharged in stable condition to home. Physical Exam Const: COMMON NORMALS: patient oriented x3 HENMT: COMMON NORMALS: atraumatic HEAD & SCALP: atraumatic Resp: COMMON NORMALS: normal respiratory effort and clear to auscultation bilaterally AUSCULTATION: clear to auscultation bilaterally Cardio: COMMON NORMALS: regular rate, regular rhythm, S1 normal heart sound present, S2 normal heart sound present, No gallops present (Cardio), No murmurs present (Cardio), No rub (Cardio) and Peripheral pulses 2+ throughout RATE: regular rate RHYTHM: regular rhythm HEART SOUNDS: S1 normal heart sound present and S2 normal heart sound present PERIPHERAL PULSES: Peripheral pulses 2+ throughout GI: COMMON NORMALS: Normal to inspection, nondistended, normoactive bowel sounds present, Soft to palpation, non-tender, No hepatosplenomegaly present and no masses AUSCULTATION: Yes normoactive bowel sounds PALPATION: Yes Soft to palpation and Yes No hepatosplenomegaly present RECTAL EXAM: Yes deferred Extremity: COMMON NORMALS: no clubbing, cyanosis or edema and no pedal edema Neuro: COMMON NORMALS: patient oriented x3 Discharge Data Data Completed and Pending: Completed Studies During Hospitalization Category Date Time Status XR chest 1V isabel ble [id number] Stat Exams 07/11/21 09:50 [place] [id number] Routin e Ultrasound 07/11/21 13:21 Completed CV. echo complete * [id number] Routine Ultrasound 07/11/21 13:21 Completed Pending at discharge Category Date Time Status Complete Blood Co unt w/Auto AM LABS Lab 07/14/21 04:00 Ordered Comprehensive Met abolic Panel AM LA BS Lab 07/14/21 04:00 Ordered Magnesium AM LABS Lab 07/14/21 04:00 Ordered Phosphorus AM LAB S Lab 07/14/21 04:00 Ordered Labs from last 24 hours 07/13/21 07/13/21 07/12/21 05:56 05:56 12:37 WBC 10.6 H RBC 4.08 L Hgb 12.5 Hct 39.3 L MCV 96.3 H MCH 30.6 MCHC 31.8 RDW 15.9 H Plt Count 202 MPV 10.9 H Neut % (Auto) 75.6 Lymph % (Auto) 12.3 [place] % (Auto) 7.7 Eos % (Auto) 3.1 Baso % (Auto) 0.8 Neut # (Auto) 7.98 H Lymph # (Auto) 1.3 [place] # (Auto) 0.8 Eos # (Auto) 0.3 Baso # (Auto) 0.1 Nucleated RBC % (a uto) 0 Nucleated RBCs # 0.0 Sodium 138 Potassium 5.2 H Chloride 109 H Carbon Dioxide 21 L Anion Gap 13.2 BUN 35 H Creatinine 2.1 H GFR Calculation Not Reportable Glucose 80 Calculated Osmolal ity 293 Calcium 8.3 L Phosphorus 2.7 Magnesium 1.9 Total Bilirubin 0.3 AST 9 ALT 6 Alkaline Phosphata se 49 Troponin T Gen 5 n g/L 48 H Total Protein 6.1 L Albumin 3.7 Globulin 2.4 Vitals: Last Vital Signs Temp 98 F 07/12/21 23:41 Pulse 82 07/13/21 08:00 Resp 20 H 07/13/21 08:00 BP 173/96 07/13/21 08:00 Pulse Ox 98 07/13/21 08:00 Discharge Plan Discharge Patient Disposition: Home Condition: Stable Prescriptions: New aspirin 81 mg Tablet,Delayed Release (Dr/Ec) 81 mg PO DAILY 30 Days Qty: 30 RF: 3 atorvastatin 40 mg Tablet 80 mg PO BEDTIME 30 Days Qty: 30 RF: 3 clopidogrel 75 mg Tablet 75 mg PO DAILY 30 Days Qty: 30 RF: 0 metoprolol tartrate 25 mg Tablet 25 mg PO Q12H 30 Days Qty: 60 RF: 3 Continued albuterol sulfate 90 mcg/actuation HFA aerosol inhaler 2 puff INHALATION Q6H PRN (Reason: Shortness Of Breath) RF: 0 Symbicort 160-4.5 mcg/actuation HFA aerosol inhaler 2 puff INHALATION BID RF: 0 Nitrostat 0.4 mg Tablet, Sublingual 0.4 mg SUBLINGUAL Q5M PRN (Reason: Chest Pain) 30 Days Qty: 30 RF: 1 Discharge Orders: Discharge Order (Routine); Ordered 07/13/21 Ordered By: Justin Mays Referrals: [facility], [Staff Physician] - 1 week (Phone lines are down, I faxed discharge orders. [facility] will contact you to schedule an follow-up appointment in 1 week. If you haven't heard from them by Tuesday. Please call ) Davi Phillips MD [Physician] - 1 month (Please follow-up with Dr. Phillips on at 11:45A.M. If you have any questions or need to reschedule. Please call ) Discharge Diet: Cardiac Discharge Activity: Increase activity as tolerated Patient Instructions: Metoprolol (By mouth), Aspirin (By mouth), Atorvastatin (By mouth), Clopidogrel (By mouth), Chronic Kidney Disease (DC), Opioid Safety Discharge Attestations Time Spent in Discharge Care*: less than 30 min Specific Discharge Activities: educating patient, educating and/or supporting family/caregiver, discussing with pcp/other providers, discussing with child support case officer/social workers/dc planners, documenting/other paperwork and evaluating patient/reviewing data Status at Discharge: Cognitive status at discharge: cognitively intact , Behavioral status at discharge: cooperative , Functional status at discharge: independent ambulation Overall status at discharge: patient is back to baseline Quality Metrics Clinical Quality Measures During this hospital stay, did patient experience: None Coding Level of Care Code Acute Chg FW DC note Diagnoses SVT (supraventricular tachycardia) I47.1 Non-ST elevation myocardial infarction (NSTEMI) I21.4 Chronic kidney disease N18.32 Chronic kidney disease stage: stage 3 (moderate) Chronic kidney disease stage 3 subtype: stage 3b (GFR 30-44) Hypertension I10 Hypertension type: primary hypertension Hyperlipidemia E78.2 Hyperlipidemia type: mixed hyperlipidemia
[2021-07-13 14:30] VITALS: BP 147/83; PULSE 63; RESP 20; O2SAT 98
--- NOTE | 2021-07-13 15:10 | PC.NURSE ---
Pt discharged home. IV removed no redness or swelling noted. Pts discharge instruction given along with prescriptions and follow up appointments. Pt had no c/o pain or discomfort at the time of discharge.
== END 2021-07-13 15:06 | disposition home or self-care (01) ==
LOC: ER 12:17 → ICU 13:35 → MEDSURG 13:35 → CSU 07-12 15:40
PROVIDERS: Internal Medicine Cardiovascular Disease; Admitting Provider Family Medicine; Emergency Provider Emergency Medicine; PCP Family Medicine; Visit Provider Internal Medicine
DX: I21.4 Non-ST elevation (NSTEMI) myocardial infarction (principal); I47.1 Supraventricular tachycardia; E87.6 Hypokalemia; R07.9 Chest pain, unspecified; N17.9 Acute kidney failure, unspecified; J44.9 Chronic obstructive pulmonary disease, unspecified; I25.10 Atherosclerotic heart disease of native coronary artery without angina pectoris; I10 Essential (primary) hypertension; E78.5 Hyperlipidemia, unspecified; I12.9 Hypertensive chronic kidney disease with stage 1 through stage 4 chronic kidney disease, or unspecified chronic kidney disease; N18.30 Chronic kidney disease, stage 3 unspecified; R06.02 Shortness of breath; Z79.82 Long term (current) use of aspirin; Z79.899 Other long term (current) drug therapy; Z87.891 Personal history of nicotine dependence
CPT/HCPCS: 36415; 71045; 80053; 80061; 83036; 83735; 83880; 84100; 84443; 84484; 85025; 85378; 93005; 93306; 93970; 94664; 96361; 96365; 96372; 96375; 99285; G0378; J0153; J1650; J3475; J7030

== ENCOUNTER 2021-09-13 06:12 | Observation (INO) | payer MEDICARE, MEDICAID, SELFPAY ==
[2021-09-13] VITALS (11 sets, daily range): BP systolic 107–154; BP diastolic 48–105; PULSE 58–125; RESP 16–19; TEMP 36.6; O2SAT 92–99; BMI 23.6
--- NOTE | 2021-09-13 06:17 | ED_ITS ---
HPI - General Adult General: Chief complaint: ER Hold Stated complaint: nose bleed Time Seen by Provider: 09/13/21 06:15 Source: family and old records reviewed Limitations: physical limitation History of Present Illness: HPI narrative: Mr. Green is an 86-year-old gentleman with history of CAD and reported, per chart review, use of aspirin and Plavix who presents to the emergency department due to epistaxis. History is essentially entirely provided by the patient's family member who lives with him as the patient is extremely hard of hearing and has a malfunctioning hearing aid at this time. No apparent changes in health over the past few days. Does have rare occasional history of epistaxis however never this long. Atraumatic onset of symptoms at about 3 AM. Tried direct pressure however this continued. History otherwise limited by communication barrier with patient Onset (ago): hour(s) Location: face Relieving factors: none Exacerbating factors: none Treatments prior to arrival: other Review of Systems General: Reports: ROS unobtainable due to medical condition PFS ED PFSH: Medical History (Updated 09/16/21 @ 00:00 by ) Chronic kidney disease Chronic kidney disease, stage III (moderate) Cognitive impairment Colitis Constipation COPD (chronic obstructive pulmonary disease) Coronary artery disease Hyperlipidemia Hypertension Non-ST elevation myocardial infarction (NSTEMI) SVT (supraventricular tachycardia) Surgical History Stented coronary artery 3 stents at [facility] 16 years ago Family History Denies family history of Clotting disorder Chronic kidney disease (CKD) Social History Smoking and tobacco status: former smoker Quit status (tobacco): has quit using tobacco Former quit date comment: Quit smoking few weeks ago Alcohol intake: never Household members: family Housing: House Physical Exam Const: COMMON NORMALS: alert GENERAL APPEARANCE: cooperative and well developed HENMT: COMMON NORMALS: normocephalic and atraumatic HEAD & SCALP: no rmocephalic and atraumatic NOSE: Epistaxis present (Right-sided primary, no specific vessel identified) on the right dried blood present, active bleeding and source not visualized THROAT: posterior oropharynx normal Eye: COMMON NORMALS: conjunctivae normal CONJUNCTIVA: Yes conjunctivae normal SCLERA: sclerae normal Neck/C-Spine: COMMON NORMALS: supple GENERAL: Yes trachea midline Resp: COMMON NORMALS: normal respiratory effort EFFORT & INSPECTION: Yes able to speak in complete sentences Cardio: COMMON NORMALS: regular rate and regular rhythm RATE: regular rate RHYTHM: regular rhythm GI: COMMON NORMALS: Soft to palpation PALPATION: Yes Soft to palpation and No Tenderness to palpation present (GI) PERCUSSION: normal to percussion Extremity: GENERAL: Yes normal exam except as noted and No edema Neuro: COMMON NORMALS: moves all extremities SENSORIUM/ORIENTATION: Yes alert OTHER: Extremely hard of hearing Psych: COMMON NORMALS: mental status grossly normal and Normal thought process present THOUGHT PROCESS: Normal thought process present Procedures Epistaxis Control Nostril: bilateral Device Inserted: nasal tampon Patient Tolerated Procedure: well Complications: continued epistaxis and pain Course ED course: - Patient was seen and evaluated by me at bedside - Patient placed on cardiac monitors, IV access obtained - Initial evaluation notable for epistaxis. Initially noted to have active bleeding from the right nare and dried blood left nare. No identified vessel on visual inspection. - I first attempted Afrin followed by nasal clamp. There was some improvement however mild oozing still remained, I reapplied nasal clamp and reassessed after an additional 25 minutes. - Unfortunately, upon removal cramp patient now has bilateral somewhat brisk epistaxis with once again no focal source identified. - Given that the right 1 appears greater than left I applied Rhino Rocket anterior posterior size single balloon intranasally. This passed easily with expected amount of discomfort. There was improvement in bleeding however mild oozing still persisted from the left, reapplied Afrin and nasal clamp however unfortunately continued. - I discussed the case with Dr. Wood, unfortunately without identified source of bleeding and failure of treatment I will have to place same Rhino Rocket anterior-posterior device in the left nare. - Given bilateral nare placement patient requires admission for observation. Dr. Wood will see the patient this afternoon in consultation. - Labs notable for leukocytosis of unclear etiology. Normal hemoglobin. Platelet count normal. Baseline CKD. - Based on patient history, evaluation, labs, and imaging as interpreted the most likely cause of the patient's condition is epistaxis refractory to treatment requiring admission for ENT consultation - Hospitalist service - Patient was admitted without further deterioration or significant events. Note: Click bubbles or prepopulated peter in note writing are used for assistance with data collection and billing and are inherently more limited than narrative and other text portions of this note. Please use narrative for additional clini moe history and defer to narrative/free test for any case of contradictory information. If information appears in only free text or click bubble it should be considered present or absent as reported. Please contact note technical document writer for clarifications of clinical information or contradictory information. MDM is a brief summary, contradictory or erroneous seeming information should be clarified and full note should be reviewed. Vital Signs: Vital signs: Vital Signs Temperature 98.1 F 09/15/21 13:36 Pulse Rate 81 09/15/21 13:36 Respiratory Rate 16 09/15/21 13:36 Blood Pressure 140/73 09/15/21 13:36 Pulse Oximetry 94 09/15/21 13:36 MDM - General Adult MDM Narrative Medical decision making narrative: 86-year-old gentleman aspirin and Plavix presenting to the emergency department for nosebleed. Limited history secondary to extremely hard of hearing with malfunctioning hearing aid. Initially mildly tachycardic. Attempted multiple different modalities however unable to achieve hemostasis to the point of patient being satisfactory for discharge. Ended up placing bilateral Rhino Rocket's and given that this is high risk patient requires admission and ENT evaluation Medical Records Attestation: I reviewed the patient's medical records. Lab Data Attestation: I reviewed the patient's lab results. Result diagrams: 09/15/21 04:52 09/15/21 04:52 Labs: Lab Results 09/13/21 09/13/21 09/13/21 06:55 06:55 06:55 WBC 14.4 10^3/uL H 10^3/uL (4.0-10.0) RBC 4.26 10^6/uL 10^6/uL (4.1-5.3) Hgb 13.1 g/dL g/dL (11.7-16.6) Hct 40.3 % L % (42.0-52.0) MCV 94.6 fl H fl (80-94) MCH 30.8 pg pg (28.0-34.0) MCHC 32.5 g/dL g/dL (30.0-36.0) RDW 15.9 % H % (12.1-15.1) Plt Count 216 10^3/cmm 10^3/cmm (130-400) MPV 10.6 fL H fL (7.4-10.4) Neut % (Auto) 77.1 % % Lymph % (Auto) 11.2 % % [place] % (Auto) 8.0 % % Eos % (Auto) 2.3 % % Baso % (Auto) 0.6 % % Neut # (Auto) 11.08 10^3/uL H 10^3/uL (1.8-7.7) Lymph # (Auto) 1.6 10^3/uL 10^3/uL (0.8-4.8) [place] # (Auto) 1.2 10^3/uL H 10^3/uL (0.2-0.9) Eos # (Auto) 0.3 10^3/uL 10^3/uL (0.0-0.8) Baso # (Auto) 0.1 10^3/uL 10^3/uL (0.0-0.1) Nucleated RBC % (auto) 0 % % Nucleated RBCs # 0.0 /100WBC /100WBC PT Cancelled INR Cancelled Sodium 136 mmol/L mmol/L (136-145) Potassium 4.7 mmol/L mmol/L (3.5-5.1) Chloride 100 mmol/L mmol/L (98-107) Carbon Dioxide 22 mmol/L mmol/L (22-29) Anion Gap 18.7 (5-19) BUN 54 mg/dL H mg/dL (8-23) Creatinine 2.4 mg/dL H mg/dL (0.7-1.2) GFR Calculation Not Reportable Glucose 100 mg/dL mg/dL (65-115) Calculated Osmolality 297 mOsm/kg H mOsm/kg (285-295) Calcium 9.9 mg/dL mg/dL (8.5-10.5) 09/13/21 07:25 WBC RBC Hgb Hct MCV MCH MCHC RDW Plt Count MPV Neut % (Auto) Lymph % (Auto) [place] % (Auto) Eos % (Auto) Baso % (Auto) Neut # (Auto) Lymph # (Auto) [place] # (Auto) Eos # (Auto) Baso # (Auto) Nucleated RBC % (auto) Nucleated RBCs # PT 12.70 SECONDS SECONDS (12.1-14.9) INR 0.92 (0.8-1.2) Sodium Potassium Chloride Carbon Dioxide Anion Gap BUN Creatinine GFR Calculation Glucose Calculated Osmolality Calcium Discharge Plan Discharge Patient Disposition: Placed in Observation Admit Provider: Travon Springer Clinical Impression: Epistaxis Discharge Diet: Cardiac Discharge Activity: Increase activity as tolerated Coding Level of Care Code ED Hat Band Attacher for Chg Fwd Exam Comprehensive
[2021-09-13] MEDS: oxymetazoline 0.05% Nasal Spray 15 mL 2 SPRAY NOSTRIL-B (06:55)
[2021-09-13 07:07] LABS: Basophils # 0.1 10^3/uL (0.0-0.1); Basophils % 0.6 %; Eosinophils # 0.3 10^3/uL (0.0-0.8); Eosinophils % 2.3 %; Hematocrit 40.3 % (42.0-52.0); Hemoglobin 13.1 g/dL (11.7-16.6); Lymphocytes # 1.6 10^3/uL (0.8-4.8); Lymphocytes % 11.2 %; Mean Corpuscular HGB Conc 32.5 g/dL (30.0-36.0); Mean Corpuscular Hemoglobin 30.8 pg (28.0-34.0); Mean Corpuscular Volume 94.6 fl (80-94); Mean Platelet Volume 10.6 fL (7.4-10.4); Monocytes # 1.2 10^3/uL (0.2-0.9); Neutrophils # 11.08 10^3/uL (1.8-7.7); Neutrophils % 77.1 %; Nucleated Red Blood Cells % 0 %; Platelet Count 216 10^3/cmm (130-400); Red Blood Count 4.26 10^6/uL (4.1-5.3); Red Cell Distribution Width 15.9 % (12.1-15.1); White Blood Count 14.4 10^3/uL (4.0-10.0)
[2021-09-13 07:24] LABS: Anion Gap 18.7 (5-19); Blood Urea Nitrogen 54 mg/dL (8-23); Calcium 9.9 mg/dL (8.5-10.5); Carbon Dioxide 22 mmol/L (22-29); Chloride 100 mmol/L (98-107); Glucose 100 mg/dL (65-115); Osmolality Calculated 297 mOsm/kg (285-295); Potassium 4.7 mmol/L (3.5-5.1); Sodium 136 mmol/L (136-145)
[2021-09-13 07:42] LABS: INR 0.92 (0.8-1.2)
[2021-09-13] MEDS: amoxicillin-clav 875-125 mg Tablet 1 TAB PO (09:21)
--- NOTE | 2021-09-13 10:57 | PM.HP ---
Providers/Chief Complaint Primary Care Provider: Adama Olmedo MD Chief Complaint: nose bleed History of Present Illness Jimenez Green is a 86 year old male was discharged from the hospital in June after management of NSTEMI, family and patient decided to pursue medical management, he was discharged on aspirin and Plavix presented today with chief complaint of nosebleed. Patient is stating that he was in his usual state of health until 3 AM when he started experiencing nosebleed. Cousin is at the bedside who is stating that he does not have central heating he has been using infrared heater at home, his home was extremely dry. No recent trauma no previous history of nose bleeding. No history of recurrent nosebleed recent nasopharyngeal carcinoma. He is very hard of hearing. He is agitated and wants to go home however in the ER for his epistaxis to Rhino Rocket's have been placed by the ER physician Dr. Wood might see him later today versus tomorrow morning he has been started on empirical prophylactic regimen with ceftriaxone, in the ER he was given Augmentin When I saw him his blood pressure was stable heart rate in 80s he was saturating well on room air, He is not spitting up blood anymore, his sputum is clear bleeding has stopped I will hold his aspirin and Plavix Review of Systems Const: Reports: chills, body aches and fatigue Eyes: Denies: change in vision ENMT: Reports: throat pain, nasal congestion and epistaxis Card: Denies: chest pain Resp: Denies: dyspnea GI: Denies: abdominal pain : Denies: flank pain Musc: Denies: neck pain Skin/Breast: Denies: lesions Neuro: Denies: headache(s) Psych: Denies: anxiety Endo: Denies: polyuria Juan Carlos/Lymph: Denies: easy bruising All/Imm: Denies: urticaria Medications/Allergies Home Medications Medication Instructions Recorded Confirmed Last Taken Type albuterol sulfate 2 puff INHALATION Q6H PRN 07/11/21 09/13/21 Unknown History budesonide-formoterol [Symbicort] 2 puff INHALATION BID 07/11/21 09/13/21 09/12/21 History aspirin 81 mg PO DAILY 30 Days #30 tab 07/13/21 09/13/21 09/12/21 Rx atorvastatin 80 mg PO BEDTIME 30 Days #30 tab 07/13/21 09/13/21 09/12/21 Rx metoprolol tartrate 25 mg PO Q12H 30 Days #60 tab 07/13/21 09/13/21 09/12/21 Rx nitroglycerin [Nitrostat] 0.4 mg SUBLINGUAL Q5M PRN 30 Days 07/13/21 09/13/21 Unknown Rx #30 tab clopidogrel 75 mg PO DAILY 09/13/21 09/13/21 09/12/21 History Allergies Allergy/AdvReac Type Severity Reaction Status Date / Time No Known Allergies Allergy Verified 08/18/21 08:37 PFSH Acute PFSH: Medical History Chronic kidney disease, stage III (moderate) Cognitive impairment Colitis Constipation COPD (chronic obstructive pulmonary disease) Coronary artery disease Hyperlipidemia Hypertension Non-ST elevation myocardial infarction (NSTEMI) Surgical History Stented coronary artery 3 stents at [facility] 16 years ago Family History Denies family history of Clotting disorder Chronic kidney disease (CKD) Social History Smoking and tobacco status: former smoker Quit status (tobacco): has quit using tobacco Former quit date comment: Quit smoking few weeks ago Alcohol intake: never Household members: family Housing: House Vitals/I&O/Wt Last Vital Signs Temp 98 F 09/13/21 06:18 Pulse 58 L 09/13/21 08:30 Resp 18 09/13/21 08:30 BP 107/48 09/13/21 08:30 Pulse Ox 99 09/13/21 08:30 Weight last 48 hrs Weight 70.307 kg Physical Exam Narrative: EXAM NARRATIVE: Patient was sitting at the bedside 2 RhinoRapids and his nose Bleeding has stopped His sputum color is clear now S1, S2 Abdomen soft Bilateral breath sounds diminished Saturating well On room air Nonfocal neuro exam Appropriate mood and affect Data : 09/13/21 06:55 09/13/21 06:55 A&P Assessment and plan (1) Epistaxis: Status: Acute (2) Chronic kidney disease: Status: Chronic Qualifiers: Chronic kidney disease stage: stage 3 (moderate) Chronic kidney disease stage 3 subtype: stage 3b (GFR 30-44) Qualified Code(s): N18.32 - Chronic kidney disease, stage 3b (3) Hypertension: Status: Acute Qualifiers: Hypertension type: primary hypertension Qualified Code(s): I10 - Essential (primary) hypertension Additional A&P Information Epistaxis Seems secondary to dry mucous membranes Patient has been using infrared heater at home No previous history of recurrent epistaxis No history of nasopharyngeal cancer Dr. Harry consulted Start empirical treatment with ceftriaxone Two Rhino [place] inserted by the ER physician Cardiac diet DVT prophylaxis SCDs Hold aspirin and Plavix, recent NSTEMI which was managed conservatively with medical management No active chest pain or shortness of breath Saturating well on room air Full code Plan to discharge him in next 24 hours if clinically stable Attestations Medical Necessity Statement*: Less than 2 midnights anticipated for monitoring for epistaxis currently has 2nasal packing Time Spent in Patient Care: Greater than 35 minutes Coding Level of Care Code Acute Patternmaker Helper for Chg Fwd Diagnoses Epistaxis R04.0 Chronic kidney disease N18.32 Chronic kidney disease stage: stage 3 (moderate) Chronic kidney disease stage 3 subtype: stage 3b (GFR 30-44) Hypertension I10 Hypertension type: primary hypertension
[2021-09-13] MEDS: morphine 4 mg/mL SDV 1 mL IM (11:29)
--- NOTE | 2021-09-13 17:59 | PM.CONSULT ---
Providers/Reason For Consult Consulting Physician/Specialty*: Dr. Rubén Wood MD Otolaryngology, Head and Neck Surgery Reason for Consult*: Epistaxis Requesting Physician: ER Attending Physician: Travon Springer MD Primary Care Provider: Adama Olmedo MD History of Present Illness History of Present Illness Jimenez Green is a 86 year old male with a h/o an AR who is on Plavix and apirin who presented to the ER earlier today with bilateral epistaxis. The patient's bleeding was controlled with bilateral rhinorockets and I was consulted to assistance in management. The patient denies any h/o trauma or other related symptoms, and reports that he is o/w doing well. The patient has significant hearing loss, but is o/w without c/o today. Review of Systems General: Reports: 10 or more systems reviewed and unremarkable except in HPI and below Medications/Allergies Home Medications Medication Instructions Recorded Confirmed Last Taken Type albuterol sulfate 2 puff INHALATION Q6H PRN 07/11/21 09/13/21 Unknown History budesonide-formoterol [Symbicort] 2 puff INHALATION BID 07/11/21 09/13/21 09/12/21 History aspirin 81 mg PO DAILY 30 Days #30 tab 07/13/21 09/13/21 09/12/21 Rx atorvastatin 80 mg PO BEDTIME 30 Days #30 tab 07/13/21 09/13/21 09/12/21 Rx metoprolol tartrate 25 mg PO Q12H 30 Days #60 tab 07/13/21 09/13/21 09/12/21 Rx nitroglycerin [Nitrostat] 0.4 mg SUBLINGUAL Q5M PRN 30 Days 07/13/21 09/13/21 Unknown Rx #30 tab clopidogrel 75 mg PO DAILY 09/13/21 09/13/21 09/12/21 History Allergies Allergy/AdvReac Type Severity Reaction Status Date / Time No Known Allergies Allergy Verified 08/18/21 08:37 PFSH Acute PFSH: Medical History Chronic kidney disease, stage III (moderate) Cognitive impairment Colitis Constipation COPD (chronic obstructive pulmonary disease) Coronary artery disease Hyperlipidemia Hypertension Non-ST elevation myocardial infarction (NSTEMI) Surgical History Stented coronary artery 3 stents at [facility] years ago Family History Denies family history of Clotting disorder Chronic kidney disease (CKD) Social History Smoking and tobacco status: former smoker Quit status (tobacco): has quit using tobacco Former quit date comment: Quit smoking few weeks ago Alcohol intake: never Household members: family Housing: House Vitals/I&O/Wt Last Vital Signs Temp 98 F 09/13/21 06:18 Pulse 86 09/13/21 13:30 Resp 18 09/13/21 11:29 BP 125/88 09/13/21 13:30 Pulse Ox 96 09/13/21 13:30 Weight last 48 hrs Weight 70.307 kg Physical Exam Const: COMMON NORMALS: no acute distress and patient oriented x3 HENMT: COMMON NORMALS: normocephalic and atraumatic HEAD & SCALP: normocephalic and atraumatic FACE & SINUS: normal facial exam NOSE: Other nasal findings present (Nasal packing present bilaterally without nasal bleeding. ) GENERAL EAR: hearing grossly impaired Eye: COMMON NORMALS: Equal, round and reactive pupils present, EOMs intact bilaterally, conjunctivae normal and no scleral icterus CONJUNCTIVA: Yes conjunctivae normal PUPIL: Yes Equal, round and reactive pupils present Neck/C-Spine: COMMON NORMALS: no lymphadenopathy, supple and Thyroid normal THYROID: Thyroid normal Lymph: LYMPHATIC: no lymphadenopathy noted Neuro: COMMON NORMALS: patient oriented x3 A&P Additional A&P Information Impression: Bilateral epistaxis well controlled with bilateral nasal packing Plan: - Retain packing for 3-5 days - Will removing nasal packing at that point - if bleeding recurs, will consider surgical intervention at that time - I will follow with Hospitalist service - Agree with IV antibiotics and admission Consult Attestations Medical Necessity Statement: I was consulted to assist inmanagement of the patient's epistaxis Coding Level of Care Code Acute Latex Caster for Rubén Hanna
--- NOTE | 2021-09-13 19:28 | PC.NURSE ---
Shift report received from Razia THORNE. Patient in bed/resting. Denies pain. No s/s of pain or discomfort. No needs voiced at this time.
[2021-09-13] MEDS: acetaminophen 500 mg Tablet PO (21:14)
[2021-09-13] MEDS: atorvastatin 40 mg Tablet 80 MG PO (21:14)
[2021-09-14] VITALS (7 sets, daily range): BP systolic 135–179; BP diastolic 83–97; PULSE 89–141; RESP 14–20; TEMP 36.4–36.8; O2SAT 90–93
--- NOTE | 2021-09-14 02:04 | PC.NURSE ---
patient in bed/sleeping. No s/s of bleeding/pain or discomfort at this time.
[2021-09-14] MEDS: calcium carbonate 500 mg Chew Tablet PO ×2 (04:41→22:04)
--- NOTE | 2021-09-14 05:29 | PM.PN ---
Subjective Subjective: Interval history: 86 yo wm who is HD #1 for bilateral epistaxis who has had bilaeral anterior nasal packing placed. The patient denies any nasal or post nasal bleeding today, and reports that he feels improved. The patient is o/w without c/o. Vitals/I&O/Wt Last Vital Signs Temp 97.6 F 09/14/21 04:00 Pulse 91 09/14/21 04:00 Resp 20 H 09/14/21 04:00 BP 150/88 09/14/21 04:00 Pulse Ox 91 09/14/21 04:00 09/13/21 09/13/21 09/14/21 14:59 22:59 06:59 Output Total 0 / 0 Balance 0 / 0 Weight last 48 hrs Weight 70.307 kg Physical Exam Const: COMMON NORMALS: patient oriented x3 HENMT: COMMON NORMALS: normocephalic and atraumatic HEAD & SCALP: normocephalic and atraumatic GENERAL EAR: other (Packing in place bilaterally without bleeding. ) Eye: COMMON NORMALS: Equal, round and reactive pupils present, EOMs intact bilaterally, conjunctivae normal and no scleral icterus CONJUNCTIVA: Yes conjunctivae normal PUPIL: Yes Equal, round and reactive pupils present Neck/C-Spine: COMMON NORMALS: no lymphadenopathy and supple Lymph: LYMPHATIC: no lymphadenopathy noted Neuro: COMMON NORMALS: patient oriented x3 Data : 09/13/21 06:55 09/13/21 06:55 A&P Additional A&P Information Impression: 86 yo wm on ASA and Plavix who is HD #1 for epistaxis without nasal bleeding with bilateral anterior nasal packing in place. Plan: I recommend leaving packing in place for 3 days - I will remove at that point. We will discuss surgical options if bleeding recurs after pack removal. Attestations Medical Necessity Statement*: I was consulted to assist with epistaxis care. Coding Level of Care Code Acute Janitorial Tech for Rubén Hanna
[2021-09-14 05:52] LABS: Basophils # 0.1 10^3/uL (0.0-0.1); Basophils % 0.4 %; Eosinophils # 0.1 10^3/uL (0.0-0.8); Eosinophils % 0.7 %; Lymphocytes # 1.3 10^3/uL (0.8-4.8); Lymphocytes % 7.2 %; Mean Corpuscular HGB Conc 32.4 g/dL (30.0-36.0); Mean Corpuscular Hemoglobin 30.2 pg (28.0-34.0); Mean Corpuscular Volume 93.2 fl (80-94); Mean Platelet Volume 11.2 fL (7.4-10.4); Monocytes # 1.2 10^3/uL (0.2-0.9); Monocytes % 6.7 %; Neutrophils # 15.07 10^3/uL (1.8-7.7); Neutrophils % 84.3 %; Nucleated Red Blood Cells % 0 %; Platelet Count 204 10^3/cmm (130-400); Red Blood Count 3.97 10^6/uL (4.1-5.3); Red Cell Distribution Width 16.2 % (12.1-15.1); White Blood Count 17.9 10^3/uL (4.0-10.0)
[2021-09-14 06:13] LABS: Blood Urea Nitrogen 51 mg/dL (8-23); Calcium 9.4 mg/dL (8.5-10.5); Carbon Dioxide 19 mmol/L (22-29); Chloride 100 mmol/L (98-107); Glucose 105 mg/dL (65-115); Osmolality Calculated 296 mOsm/kg (285-295); Sodium 136 mmol/L (136-145)
[2021-09-14 06:16] LABS: Anion Gap 21.9 (5-19); Potassium 4.9 mmol/L (3.5-5.1)
--- NOTE | 2021-09-14 08:47 | PC.CHAP ---
Pastoral Care Encounter/Spiritual Assessment Type of Contact [] Declined social work case manager visit [] Patient/Family/Request visit [] Outpatient visit [] Follow-up visit [] Physician referral [] Code/Alert [x] Routine visit [] Staff referral [] Actively dying [x] Patient sleeping [] Family support [] [] Out of room [] Palliative care [] [] Receiving care in room [] Pre-surgical visit [] Trauma [] Long length of stay [] ICU visit [] Other: Relational/Emotional Strength [] Patient feels connected with others/family/visitors/staff [] Distress [] Loneliness/isolation [] Abandonment Spirituality of Patient [] Person of Marlene [] Attends Zoroastrianism of their Marlene [] Believes in Prayer [] Reads Bible or Church materials [] There are Spiritual issues to be addressed Sales Representative Electric Service Interventions [] Prayer [] Active listening [] Non-anxious presence [] Spiritual/emotional support [] Crisis/trauma care [] Spiritual counseling [] Bereavement support [] Provided bereavement packet [] Provided Bible/devotional materials [] Provided toy/stuffed animal, coloring book to patient or family member [] Provided Communion [] Anointing/[place] [] Salvation [x] Completed spiritual assessment [] Other: Impact on Illness or Injury [] Angry [] Fearful [] Anxious [] Often cries [] Exhaustion [] Unable to work [] Unable to attend baptism [] Unable to walk/stand [] Unable to read [] Unable to drive [] Unable to eat/drink [] Unable to sleep [] Unable to be with family [] Patient intubated [] Other: Summary Time spent with patient
[2021-09-14] MEDS: sodium chloride 0.9% 1,000 ML 100 ML IV ×2 (10:27→22:03)
--- NOTE | 2021-09-14 12:07 | PM.PN ---
Subjective Subjective: Interval history: Patient is doing well however very irritated and wants to go home, I told him that ENT recommended staying in the hospital for at least 2 to 3 days, I will touch base with Dr. Harry today, and left a voicemail, Patient needs IV line for IV fluid hydration and antibiotics, this morning he has no IV access, I will change his antibiotics to Augmentin Vitals/I&O/Wt Last Vital Signs Temp 97.5 F L 09/14/21 08:00 Pulse 110 H 09/14/21 10:15 Resp 17 09/14/21 10:15 BP 158/83 09/14/21 08:00 Pulse Ox 91 09/14/21 10:15 09/13/21 09/14/21 09/14/21 22:59 06:59 14:59 Output Total 0 / 0 125 / 125 150 / 150 Balance 0 / 0 -125 / -125 -150 / -150 Weight last 48 hrs Weight 70.307 kg Physical Exam Narrative: EXAM NARRATIVE: Patient is resting comfortably Saturating well on room air Eating breakfast S1, S2 Clinically dehydrated Nonfocal neuro exam Irritable mood secondary to nasal packing Bilateral nasal packing no active bleeding Sputum is clear Data : 09/14/21 04:33 09/14/21 04:33 A&P Assessment and plan (1) Epistaxis: Status: Acute (2) Chronic kidney disease: Status: Chronic Qualifiers: Chronic kidney disease stage: stage 3 (moderate) Chronic kidney disease stage 3 subtype: stage 3b (GFR 30-44) Qualified Code(s): N18.32 - Chronic kidney disease, stage 3b (3) Hypertension: Status: Acute Qualifiers: Hypertension type: primary hypertension Qualified Code(s): I10 - Essential (primary) hypertension Additional A&P Information Epistaxis: Resolved No IV access, add Augmentin discontinue ceftriaxone, ENT recommendation appreciated, will touch base with Dr. Harry today Patient wants to go home Packing should be removed by ENT as he would need intervention if he starts bleeding again Chronic renal disease: Creatinine seems to be around baseline Leukocytosis, he has been afebrile Monitor closely for any signs of toxic shock syndrome requested RN to gain IV access and start IV fluid Hypertension: Add amlodipine Full code DVT prophylaxis contraindicated Recent NSTEMI aspirin and Plavix on hold Attestations Medical Necessity Statement*: Discharge tomorrow Time Spent in Patient Care: less than 15 minutes Coding Level of Care Code Acute Marketing Proposal Specialist for Chg Fwd Diagnoses Epistaxis R04.0 Chronic kidney disease N18.32 Chronic kidney disease stage: stage 3 (moderate) Chronic kidney disease stage 3 subtype: stage 3b (GFR 30-44) Hypertension I10 Hypertension type: primary hypertension
[2021-09-14] MEDS: amoxicillin-clav 875-125 mg Tablet 1 TAB PO (18:11)
[2021-09-14] MEDS: atorvastatin 40 mg Tablet 80 MG PO (22:04)
[2021-09-15 00:41] VITALS: BP 179/100; PULSE 99; RESP 16; TEMP 36.8; O2SAT 93
--- NOTE | 2021-09-15 05:24 | PM.PN ---
Subjective Subjective: Interval history: 86 yo wm HD#2 for bilateral epistaxis with bilateral anterior nasal packing in place. The patient denies any nasal bleeding, and is o/w without c/o. He would like to go home. Medications: Reviewed: Yes Vitals/I&O/Wt Last Vital Signs Temp 98.2 F 09/15/21 00:41 Pulse 99 09/15/21 00:41 Resp 16 09/15/21 00:41 BP 179/100 09/15/21 00:41 Pulse Ox 93 09/15/21 00:41 09/14/21 09/14/21 09/15/21 14:59 22:59 06:59 Intake Total 120 / 120 1240 / 1360 Output Total 350 / 350 450 / 800 Balance -230 / -230 790 / 560 Weight last 48 hrs Weight 70.307 kg Physical Exam Const: COMMON NORMALS: no acute distress, average body habitus and patient oriented x3 HENMT: HEAD & SCALP: other (Nasal packing in place without bleeding. ) FACE & SINUS: normal facial exam MOUTH: lip normal Eye: GENERAL EYE: appearance normal, both eyes and all related structures EYELID: eyelids normal Neck/C-Spine: COMMON NORMALS: full ROM Lymph: LYMPHATIC: no lymphadenopathy noted Neuro: COMMON NORMALS: patient oriented x3 Data : 09/14/21 04:33 09/14/21 04:33 A&P Assessment and plan (1) Epistaxis: Status: Acute Plan Impression: 86 yo wm who is HD #2/Nasal packing day #2 for bilateral epistaxis that appears to be resolved Additional A&P Information Plan: - Nasal packing removed - I recommend that the patient spray his nose liberally with Afrin every 30 minutes - if his epistaxis does not return by noon, he would be eligible for d/c - The patient is to f/u in my office in one week - He is to report to the ER for recurrent bleeding - Please contact me if any nasal bleeding recurs before d/c Attestations Medical Necessity Statement*: I was consulted to assist in management of the patient's epistaxis. Procedures Procedure Narrative Nasal Packing Removal: the patient's nasal packing was removed and his nose was sprayed aggressively with Afrin; the patient was observed for 30 minutes without recurrence of bleeding; there were no complications. Coding Level of Care Code Acute Tow Bar Driver for [facility] Fwd Diagnoses Epistaxis R04.0
[2021-09-15 05:35] VITALS: BP 138/82; PULSE 100; RESP 17; TEMP 37.2; O2SAT 93
--- NOTE | 2021-09-15 05:42 | PM.DCS ---
Discharge Providers Date of Admission: 09/13/21 18:35 Date of Discharge: September 15, 2021 Attending Provider at Admission: Travon Springer MD Attending Provider at Discharge: Travon Springer MD Consults: Dr. Wood, ENT Primary Care Provider: Adama Olmedo MD Diagnoses at Discharge Discharge Diagnosis (1) Epistaxis: Status: Resolved Reason for Visit Reason for Visit: nose bleed Hospital Course Hospital Course Patient was admitted for management and evaluation of epistaxis. Bilateral nasal packing/Rhino Rocket's were placed by the ER physician at the time of admission. ENT Dr. Wood examined the patient as well,removed packing on 09/15. Patient was kept on ceftriaxone initially, he lost IV access and he was started on Augmentin. He remained afebrile. He has chronic kidney disease creatinine seems to be around baseline. At the time of discharge I have discontinued aspirin, he can start taking Plavix after 1 week. Outpatient ENT follow-up Physical Exam Narrative: EXAM NARRATIVE: EOMI, PERRLA Saturating well on room air S1, S2 Euvolemic Awake and alert No acute respite distress Abdomen is soft No signs of peritonitis Discharge Data Data Completed and Pending Pending at discharge Category Date Time Status Basic Metabolic Panel AM LABS Lab 09/15/21 04:00 Ordered Complete Blood Count w/Auto AM LABS Lab 09/15/21 04:00 Ordered Labs from last 24 hours 09/14/21 09/14/21 04:33 04:33 WBC 17.9 H RBC 3.97 L Hgb 12.0 Hct 37.0 L MCV 93.2 MCH 30.2 MCHC 32.4 RDW 16.2 H Plt Count 204 MPV 11.2 H Neut % (Auto) 84.3 Lymph % (Auto) 7.2 [place] % (Auto) 6.7 Eos % (Auto) 0.7 Baso % (Auto) 0.4 Neut # (Auto) 15.07 H Lymph # (Auto) 1.3 [place] # (Auto) 1.2 H Eos # (Auto) 0.1 Baso # (Auto) 0.1 Nucleated RBC % (auto) 0 Nucleated RBCs # 0.0 Sodium 136 Potassium 4.9 Chloride 100 Carbon Dioxide 19 L Anion Gap 21.9 H BUN 51 H Creatinine 2.3 H GFR Calculation Not Reportable Glucose 105 Calculated Osmolality 296 H Calcium 9.4 Vitals Last Vital Signs Temp 98.9 F 09/15/21 05:35 Pulse 100 09/15/21 05:35 Resp 17 09/15/21 05:35 BP 138/82 09/15/21 05:35 Pulse Ox 93 09/15/21 05:35 Discharge Plan Discharge Patient Disposition: Home Condition: Stable Prescriptions: New amoxicillin-pot clavulanate 875-125 mg Tablet 1 tab PO BID Qty: 6 0RF Continued budesonide-formoterol [Symbicort] 160-4.5 mcg/actuation HFA aerosol inhaler 2 puff INHALATION BID 0RF atorvastatin 40 mg Tablet 80 mg PO BEDTIME 30 Days Qty: 30 3RF metoprolol tartrate 25 mg Tablet 25 mg PO Q12H 30 Days Qty: 60 3RF nitroglycerin [Nitrostat] 0.4 mg Tablet, Sublingual 0.4 mg SUBLINGUAL Q5M PRN (Reason: Chest Pain) 30 Days Qty: 30 1RF albuterol sulfate 90 mcg/actuation HFA aerosol inhaler 2 puff INHALATION Q6H PRN (Reason: Shortness Of Breath) Qty: 1 2RF Held clopidogrel 75 mg tablet 75 mg PO DAILY 0RF Hold Instructions: Resume on 09/22/21. Discontinued aspirin 81 mg Tablet,Delayed Release (Dr/Ec) 81 mg PO DAILY 30 Days Qty: 30 3RF Discharge Orders: Discharge Order (Routine); Ordered 09/15/21 Ordered By: Travon Springer Referrals: Rubén Wood MD [Physician] - 09/21/21 8:15 am Poppy Fregoso NP [Referring] - 09/21/21 11:00 am Discharge Diet: Cardiac Discharge Activity: Increase activity as tolerated Discharge Attestations Time Spent in Discharge Care*: less than 30 min Status at Discharge: Cognitive status at discharge: cognitively intact, Behavioral status at discharge: cooperative, Quality Metrics Clinical Quality Measures During this hospital stay, did patient experience: None Coding Level of Care Code Acute Chg FW DC note Diagnoses Epistaxis R04.0
[2021-09-15 06:26] LABS: Basophils # 0.1 10^3/uL (0.0-0.1); Basophils % 0.5 %; Eosinophils # 0.2 10^3/uL (0.0-0.8); Eosinophils % 1.3 %; Hematocrit 44.2 % (42.0-52.0); Hemoglobin 13.6 g/dL (11.7-16.6); Lymphocytes # 1.3 10^3/uL (0.8-4.8); Mean Corpuscular HGB Conc 30.8 g/dL (30.0-36.0); Mean Corpuscular Hemoglobin 31.6 pg (28.0-34.0); Mean Corpuscular Volume 102.8 fl (80-94); Mean Platelet Volume 11.6 fL (7.4-10.4); Monocytes % 7.8 %; Neutrophils # 10.07 10^3/uL (1.8-7.7); Neutrophils % 79.6 %; Nucleated Red Blood Cells % 0 %; Platelet Count 129 10^3/cmm (130-400); Red Cell Distribution Width 16.5 % (12.1-15.1); White Blood Count 12.6 10^3/uL (4.0-10.0)
[2021-09-15 06:41] LABS: Blood Urea Nitrogen 43 mg/dL (8-23); Carbon Dioxide 18 mmol/L (22-29); Chloride 104 mmol/L (98-107); Glucose 83 mg/dL (65-115); Osmolality Calculated 288 mOsm/kg (285-295); Sodium 134 mmol/L (136-145)
[2021-09-15 06:45] LABS: Anion Gap 17.1 (5-19); Potassium 5.1 mmol/L (3.5-5.1)
[2021-09-15 08:00] VITALS: BP 145/74; PULSE 84; RESP 18; TEMP 36.7; O2SAT 94
[2021-09-15 08:35] VITALS: PULSE 86; RESP 16; O2SAT 93
[2021-09-15] MEDS: amoxicillin-clav 875-125 mg Tablet 1 TAB PO (08:42)
[2021-09-15 12:00] VITALS: BP 140/73; PULSE 81; RESP 16; TEMP 36.7; O2SAT 94
[2021-09-15 13:36] VITALS: BP 140/73; PULSE 81; RESP 16; TEMP 36.7; O2SAT 94
== END 2021-09-15 12:39 | disposition home or self-care (01) ==
LOC: ER 11:13 → ER IP 15:55 → MEDSURG 17:59
PROVIDERS: Admitting Provider Internal Medicine; Emergency Provider Emergency Medicine; PCP Family Medicine; Visit Provider Internal Medicine
DX: R04.0 Epistaxis (principal); I12.9 Hypertensive chronic kidney disease with stage 1 through stage 4 chronic kidney disease, or unspecified chronic kidney disease; N18.32 Chronic kidney disease, stage 3b; J44.9 Chronic obstructive pulmonary disease, unspecified; I25.10 Atherosclerotic heart disease of native coronary artery without angina pectoris; E78.5 Hyperlipidemia, unspecified; I25.2 Old myocardial infarction; Z95.5 Presence of coronary angioplasty implant and graft
CPT/HCPCS: 12345; 30903; 30905; 36415; 49083; 80048; 85025; 85610; 94640; 96372; 99285; G0378; J2270; J7030

== ENCOUNTER 2021-10-19 18:03 | Inpatient (IN) | payer MEDICARE, MEDICAID, SELFPAY ==
[2021-10-19 18:06] VITALS: PULSE 125; RESP 24; TEMP 36.6; BMI 19.5
--- NOTE | 2021-10-19 18:19 | XRR_ITS ---
PROCEDURE INFORMATION: Exam: XR Chest Exam date and time: 10/19/2021 6:19 PM Age: 86 years old Clinical indication: Cough and dyspnea TECHNIQUE: Imaging protocol: XR of the chest. Views: 1 view. COMPARISON: CR XR chest 1V portable [id number] 07/11/2021 10:18 AM FINDINGS: Lungs: Unremarkable. No consolidation. Pleural spaces: Unremarkable. No pleural effusion. No pneumothorax. Heart/Mediastinum: Unremarkable. No cardiomegaly. Bones/joints: Unremarkable. XR/XR chest 1V portable [id number] IMPRESSION: No acute findings.
--- NOTE | 2021-10-19 18:27 | W.ED.GENADLT ---
HPI - General Adult General: Chief complaint: Abdominal Pain Stated complaint: ABD PAIN, LOW O2 Time Seen by Provider: 10/19/21 18:04 History of Present Illness: Patient is an 86-year-old male with history of CKD, colitis, COPD, hyperlipidemia, hypertension who presents emergency room with complaints of midepigastric abdominal pain and bloating x 1 day shortness of breath x1 week. Patient was recently admitted to hospital 09/15 for epistaxis. Since then, patient has not had any residual nosebleed. However over the last week, patient has had cough generalized weakness and shortness of breath. Patient baseline does not use oxygen denies any history of COPD/asthma/smoking. Patient denies any fever or chills, diarrhea melena hematochezia, nausea/vomiting, or decreased p.o. intake. Onset:1 day of abd pain and bloating, 1 week of dyspnea Duration:ongoing Location:home Severity:moderate Associated symptoms: Reports dyspnea; Deny chest pain, nausea, rash, palpitations or vomiting Review of Systems Const: Denies: fever(s) or chills Eyes: Denies: change in vision ENMT: Denies: mouth pain Card: Denies: chest pain or palpitations Resp: Reports: dyspnea; Denies: non-productive cough GI: Reports: abdominal pain (+mid epigastric abd pain) and other (+abdominal bleeding); Denies: nausea, vomiting or diarrhea : Denies: dysuria Musc: Denies: extremity pain Skin/Breast: Denies: rash or new lesions Neuro: Reports: other (+confusion); Denies: weakness in extremities Psych: Reports: other (Normal mood) Juan Carlos/Lymph: Denies: easy bruising PFS ED PFSH: Medical History (Updated 10/19/21 @ 22:00 by Kristal Sheets MD) Chronic kidney disease Chronic kidney disease, stage III (moderate) Cognitive impairment Colitis Constipation COPD (chronic obstructive pulmonary disease) Coronary artery disease COVID Hyperlipidemia Hypertension Non-ST elevation myocardial infarction (NSTEMI) SVT (supraventricular tachycardia) Surgical History Stented coronary artery 3 stents at [facility] 16 years ago Family History Denies family history of Clotting disorder Chronic kidney disease (CKD) Social History Smoking and tobacco status: former smoker Quit status (tobacco): has quit using tobacco Former quit date comment: Quit smoking few weeks ago Alcohol intake: never Household members: family Housing: House Physical Exam Const: COMMON NORMALS: alert HENMT: COMMON NORMALS: atraumatic HEAD & SCALP: atraumatic MOUTH: moist mucous membranes not abnormal Eye: COMMON NORMALS: EOMs intact bilaterally and conjunctivae normal CONJUNCTIVA: Yes conjunctivae normal Neck/C-Spine: COMMON NORMALS: full ROM and supple Resp: COMMON NORMALS: normal respiratory effort and clear to auscultation bilaterally AUSCULTATION: clear to auscultation bilaterally Cardio: COMMON NORMALS: regular rate RATE: regular rate GI: COMMON NORMALS: Soft to palpation PALPATION: Yes Soft to palpation OTHER: +Mid-epigastric focal TTP. NO guarding rebound, guarding, rigidity. No CVA tenderness to percussion. Neg Summers/Neg McBurney's point tenderness, no suprabupic tenderness to palpation. Extremity: COMMON NORMALS: full ROM Neuro: SENSORIUM/ORIENTATION: Yes alert MOTOR EXAM: No Abnormal motor strength present and Other motor observations present (no focal motor deficits) OTHER: +mild generalized confusion, following commands, GCS 14, neuro exam grossly normal Psych: COMMON NORMALS: speech normal SPEECH: Yes normal speech MOOD & AFFECT: Yes euthymic mood Course Vital Signs: Vital signs: Vital Signs Temperature 97.9 F 10/19/21 18:06 Pulse Rate 92 10/19/21 20:43 Respiratory Rate 21 H 10/19/21 20:43 Blood Pressure 113/82 10/19/21 20:43 Pulse Oximetry 92 10/19/21 20:43 MDM - General Adult Medical Decision Making 86-year-old male with history of CKD, colitis, hypertension, hyperlipidemia who presents the emergency room for evaluation of abdominal bloating/pain x1 day in the setting of cough and dyspnea x1 week. Arrival, patient was satting at 91 to 92% on room air with improvement to 95% on 2L NC. In triage, patient was noted to be tachycardic to 120s. However in the emergency room, patient patient heart rate in the low 90s without any intervention. BUN of 101, Cr of 3.9 from 2.4. COVID+ today. S/p decadron, margi defer CT abd to inpatient team. S/p IVF. XR chest clear. Disposition: admission Lab Data : 10/19/21 18:45 10/19/21 20:40 Radiology Impressions Chest X-Ray 10/19/21 18:19 IMPRESSION: No acute findings. Laboratory Results WBC 11.4 10^3/uL (4.0-10.0) H 10/19/21 18:45 RBC 4.33 10^6/uL (4.1-5.3) 10/19/21 18:45 Hgb 13.0 g/dL (11.7-16.6) 10/19/21 18:45 Hct 42.7 % (42.0-52.0) 10/19/21 18:45 MCV 98.6 fl (80-94) H 10/19/21 18:45 MCH 30.0 pg (28.0-34.0) 10/19/21 18:45 MCHC 30.4 g/dL (30.0-36.0) 10/19/21 18:45 RDW 17.5 % (12.1-15.1) H 10/19/21 18:45 Plt Count 224 10^3/cmm (130-400) 10/19/21 18:45 MPV 11.7 fL (7.4-10.4) H 10/19/21 18:45 Neut % (Auto) 78.0 % 10/19/21 18:45 Lymph % (Auto) 9.9 % 10/19/21 18:45 [place] % (Auto) 8.9 % 10/19/21 18:45 Eos % (Auto) 0.3 % 10/19/21 18:45 Baso % (Auto) 0.4 % 10/19/21 18:45 Neut # (Auto) 8.88 10^3/uL (1.8-7.7) H 10/19/21 18:45 Lymph # (Auto) 1.1 10^3/uL (0.8-4.8) 10/19/21 18:45 [place] # (Auto) 1.0 10^3/uL (0.2-0.9) H 10/19/21 18:45 Eos # (Auto) 0.0 10^3/uL (0.0-0.8) 10/19/21 18:45 Baso # (Auto) 0.1 10^3/uL (0.0-0.1) 10/19/21 18:45 Nucleated RBC % (auto) 0 % 10/19/21 18:45 Nucleated RBCs # 0.0 /100WBC 10/19/21 18:45 Sodium 137 mmol/L (136-145) 10/19/21 20:40 Potassium 6.2 mmol/L (3.5-5.1) H 10/19/21 20:40 Chloride 107 mmol/L (98-107) 10/19/21 20:40 Carbon Dioxide 16 mmol/L (22-29) L 10/19/21 20:40 Anion Gap 20.2 (5-19) H 10/19/21 20:40 BUN 100 mg/dL (8-23) H* D 10/19/21 20:40 Creatinine 3.9 mg/dL (0.7-1.2) H 10/19/21 20:40 GFR Calculation Not Reportable 10/19/21 20:40 Glucose 91 mg/dL (65-115) 10/19/21 20:40 Calculated Osmolality 315 mOsm/kg (285-295) H 10/19/21 20:40 Calcium 9.7 mg/dL (8.5-10.5) 10/19/21 20:40 Total Bilirubin 0.2 mg/dL (0.15-1.2) 10/19/21 20:40 AST 20 U/L (0-40) 10/19/21 20:40 ALT 14 U/L (0-41) 10/19/21 20:40 Alkaline Phosphatase 66 IU/L (40-130) 10/19/21 20:40 Troponin T Baseline 53 ng/L (0-15) H 10/19/21 20:40 NT-Pro-B Natriuret Pep 386 pg/mL (0-450) 10/19/21 20:40 Total Protein 7.1 g/dL (6.6-8.7) 10/19/21 20:40 Albumin 3.6 g/dL (3.5-5.2) 10/19/21 20:40 Globulin 3.5 g/dL (1.3-4.6) 10/19/21 20:40 Lipase 165 U/L (13-60) H 10/19/21 20:40 Urine Color Yellow (Yellow) 10/19/21 18:50 Urine Appearance Clear (CLEAR) 10/19/21 18:50 Urine pH 5 (5-7) 10/19/21 18:50 Ur Specific [place] 1.020 (1.005-1.030) 10/19/21 18:50 Urine Protein Trace (Negative) 10/19/21 18:50 Urine Glucose (UA) Norm (Normal) 10/19/21 18:50 Urine Ketones Negative (Negative) 10/19/21 18:50 Urine Blood Trace (Negative) H 10/19/21 18:50 Urine Nitrate Negative (Negative) 10/19/21 18:50 Urine Bilirubin Neg (Negative) 10/19/21 18:50 Urine Urobilinogen Norm mg/dL (Negative) 10/19/21 18:50 Ur Leukocyte Esterase Negative (Negative) 10/19/21 18:50 Urine RBC None /hpf (0-2) 10/19/21 18:50 Urine WBC Rare /hpf (0-5) 10/19/21 18:50 Ur Squamous Epith Cells None /hpf (0-5) 10/19/21 18:50 Amorphous Sediment Not Reportable 10/19/21 18:50 Urine Bacteria Trace /hpf (NONE) 10/19/21 18:50 Nasal Influ A H1 2009 PCR Not detected (NOT DETECT) 10/19/21 18:50 Coronavirus 229E (PCR) Not detected (NOT DETECT) 10/19/21 18:50 Influenza A (H1) PCR Not detected (NOT DETECT) 10/19/21 18:50 Influenza A (H3) PCR Not detected (NOT DETECT) 10/19/21 18:50 Influenza Type A (PCR) Not detected (NOT DETECT) 10/19/21 18:50 Influenza Type B (PCR) Not detected (NOT DETECT) 10/19/21 18:50 SARS-CoV-2 (PCR) Detected (NOT DETECT) A 10/19/21 18:50 Imaging Data Other Imaging: Radiologist's impression: [address] [address] XRay Report Signed Patient: Jimenez Green Unit #: [id number] : 1935 Age/Sex: 86 / M ADM Date: 10/19/21 Loc: ER Room/Bed: Attending Dr: Ordering Provider/Ordering MD: Kristal Sheets MD Date of Service: 10/19/21 Procedure(s): XR chest 1V portable [id number] Accession Number(s): [id number] Report Number: [id number] PROCEDURE INFORMATION: Exam: XR Chest Exam date and time: 10/19/2021 6:19 PM Age: 86 years old Clinical indication: Cough and dyspnea TECHNIQUE: Imaging protocol: XR of the chest. Views: 1 view. COMPARISON: CR XR chest 1V portable [id number] 07/11/2021 10:18 AM FINDINGS: Lungs: Unremarkable. No consolidation. Pleural spaces: Unremarkable. No pleural effusion. No pneumothorax. Heart/Mediastinum: Unremarkable. No cardiomegaly. Bones/joints: Unremarkable. XR/XR chest 1V portable [id number] IMPRESSION: No acute findings. ? Dictated By: Adama Thomson MD Signed By: Admaa Thomson MD Signed Date/Time: 10/19/211837 DD/ 18 Discharge Plan Discharge Patient Disposition: Admitted As Inpatient Clinical Impression: Abdominal pain, Cough, Dyspnea, COVID, Uremic encephalopathy, Acute kidney injury superimposed on CKD Condition: Stable Prescriptions: New Zofran 4 mg tablet 4 mg PO TID PRN (Reason: nausea and vomiting) 4 Days Qty: 12 0RF acetaminophen 500 mg tablet 500 mg PO Q6H PRN (Reason: pain) 5 Days Qty: 20 0RF Pepcid 20 mg tablet 20 mg PO BID PRN (Reason: abdominal pain) 10 Days Qty: 20 0RF Maalox Advanced 1,000-60 mg tablet,chewable 1 tab PO TID PRN (Reason: abdominal pain) 7 Days Qty: 21 0RF No Action budesonide-formoterol [Symbicort] 160-4.5 mcg/actuation HFA aerosol inhaler 2 puff INHALATION BID 0RF atorvastatin 40 mg Tablet 80 mg PO BEDTIME 30 Days Qty: 30 3RF metoprolol tartrate 25 mg Tablet 25 mg PO Q12H 30 Days Qty: 60 3RF nitroglycerin [Nitrostat] 0.4 mg Tablet, Sublingual 0.4 mg SUBLINGUAL Q5M PRN (Reason: Chest Pain) 30 Days Qty: 30 1RF clopidogrel 75 mg tablet 75 mg PO DAILY 0RF Hold Instructions: Resume on 09/22/21. amoxicillin-pot clavulanate 875-125 mg Tablet 1 tab PO BID Qty: 6 0RF albuterol sulfate 90 mcg/actuation HFA aerosol inhaler 2 puff INHALATION Q6H PRN (Reason: Shortness Of Breath) Qty: 1 2RF Other Ambulatory Orders: DME: Oxygen (Order) Location: None Selected Ordered By: rKistal Sheets Referrals: Adama Olmedo MD [Primary Care Provider] - Discharge Diet: Advance as tolerated Discharge Activity: Increase activity as tolerated Patient Instructions: Abdominal Pain (ED), Acute Cough (ED) Activity Restrictions/Additional Instructions: Please come back if you have any worsening abdominal pain, fever or chills, nausea or vomiting, diarrhea, blood in the stool, inability hold down liquid or solids, or any new concerning complaints. Come back to the emergency room if your symptoms worsen, have any shortness of breath, fever/chills, dehydration, inability tolerate food or drinks, any difficulty breathing, or any new or concerning complaints. Please return the emergency room if your pulse ox reads less than 88%. Coding Level of Care Code ED Telephone Order Clerk Room Service for Rubén Hanna Exam Comprehensive
--- NOTE | 2021-10-19 18:37 | ECG_ITS ---
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 Measurements Intervals [place] Rate: 101 P: 73 RI: 139 QRS: 102 QRSD: 96 T: 68 QT: 311 QTc: 404 Interpretive Statements SINUS TACHYCARDIA RIGHT AXIS DEVIATION [QRS AXIS > 100] Compared to ECG 07/11/2021 15:42:37 Right-axis deviation now present Sinus rhythm no longer present Electronically Signed On 10-21-2021 5:44:30 DIGITAL ARCHIVIST by Osiris Mcclelland M.D. [id number]
[2021-10-19] MEDS: famotidine 20 mg/2 mL INJ IVP (18:57)
[2021-10-19] MEDS: sodium chloride 0.9% 500 ML IV (18:57)
[2021-10-19 19:01] LABS: Basophils # 0.1 10^3/uL (0.0-0.1); Basophils % 0.4 %; Eosinophils % 0.3 %; Hematocrit 42.7 % (42.0-52.0); Lymphocytes # 1.1 10^3/uL (0.8-4.8); Lymphocytes % 9.9 %; Mean Corpuscular HGB Conc 30.4 g/dL (30.0-36.0); Mean Corpuscular Volume 98.6 fl (80-94); Mean Platelet Volume 11.7 fL (7.4-10.4); Monocytes % 8.9 %; Neutrophils # 8.88 10^3/uL (1.8-7.7); Nucleated Red Blood Cells % 0 %; Platelet Count 224 10^3/cmm (130-400); Red Blood Count 4.33 10^6/uL (4.1-5.3); Red Cell Distribution Width 17.5 % (12.1-15.1); White Blood Count 11.4 10^3/uL (4.0-10.0)
[2021-10-19 19:08] VITALS: BP 123/78; PULSE 94; RESP 22; O2SAT 98
[2021-10-19 19:36] LABS: Urine Appearance Clear (CLEAR); Urine Color Yellow (Yellow); pH Urine 5 (5-7)
[2021-10-19 19:37] LABS: Add Urine Microscopic? YES; Bilirubin Urine Neg (Negative); Blood Urine Trace (Negative); Glucose Urine UA Norm (Normal); Ketones Urine Negative (Negative); Leukocyte Esterase Urine Negative (Negative); Nitrate Urine Negative (Negative); Protein Urine Trace (Negative); Urobilinogen Urine Norm (Negative)
[2021-10-19 19:41] LABS: Bacteria Urine TRACE /hpf; WBC Urine RARE /hpf (0-5)
--- NOTE | 2021-10-19 20:37 | ECG_ITS ---
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 Measurements Intervals [place] Rate: 91 P: 87 WI: 135 QRS: 94 QRSD: 82 T: 87 QT: 326 QTc: 403 Interpretive Statements SINUS RHYTHM BORDERLINE RIGHT AXIS DEVIATION [QRS AXIS > 90] Compared to ECG 10/19/2021 18:46:07 Sinus tachycardia no longer present Electronically Signed On 10-21-2021 5:52:04 SHIPPER RECEIVER by Osiris Mcclelland M.D. [id number]
[2021-10-19 20:43] VITALS: BP 113/82; PULSE 92; RESP 21; O2SAT 92
[2021-10-19 20:51] LABS: Adenovirus Not Detected (NOT DETECT); Chlamydia Pneumoniae Not Detected (NOT DETECT); Coronavirus 229E,HKU1,NL63,OC4 Not Detected (NOT DETECT); Human Metapneumovirus Not Detected (NOT DETECT); Human Rhinovirus/Enterovirus Not Detected (NOT DETECT); Influenza A Not Detected (NOT DETECT); Influenza A H1 Not Detected (NOT DETECT); Influenza A H1-2009 Not Detected (NOT DETECT); Influenza A H3 Not Detected (NOT DETECT); Influenza B Not Detected (NOT DETECT); Mycoplasma Pneumoniae Not Detected (NOT DETECT); Parainfluenza Virus Type 1 Not Detected (NOT DETECT); Parainfluenza Virus Type 2 Not Detected (NOT DETECT); Parainfluenza Virus Type 3 Not Detected (NOT DETECT); Parainfluenza Virus Type 4 Not Detected (NOT DETECT); Respiratory Syncytial Virus A Not Detected (NOT DETECT); Respiratory Syncytial Virus B Not Detected (NOT DETECT); SARS-COV-2 Detected (NOT DETECT)
[2021-10-19 21:16] LABS: Troponin(5th) Baseline 53 ng/L (0-15)
[2021-10-19 21:18] LABS: Influenza A Not Detected (NOT DETECT); Influenza A H1 Not Detected (NOT DETECT); Influenza A H1-2009 Not Detected (NOT DETECT); Influenza A H3 Not Detected (NOT DETECT); Influenza B Not Detected (NOT DETECT); Results from Genmark
[2021-10-19 21:29] LABS: Alanine Aminotransferase 14 U/L (0-41); Albumin Level 3.6 g/dL (3.5-5.2); Alkaline Phosphatase 66 IU/L (40-130); Anion Gap 20.2 (5-19); Aspartate Amino Transferase 20 U/L (0-40); Calcium 9.7 mg/dL (8.5-10.5); Carbon Dioxide 16 mmol/L (22-29); Chloride 107 mmol/L (98-107); Globulin 3.5 g/dL (1.3-4.6); Glucose 91 mg/dL (65-115); Lipase 165 U/L (13-60); NT Pro B Type Natriuretic Pept 386 pg/mL (0-450); Osmolality Calculated 315 mOsm/kg (285-295); Potassium 6.2 mmol/L (3.5-5.1); Sodium 137 mmol/L (136-145); Total Bilirubin 0.2 mg/dL (0.15-1.2); Total Protein 7.1 g/dL (6.6-8.7)
[2021-10-19 21:34] LABS: Blood Urea Nitrogen 100 mg/dL (8-23)
[2021-10-19] MEDS: dexamethasone 10 mg/mL INJ 6 MG IVP (21:51)
[2021-10-19 23:16] LABS: Troponin 5 2HR 51.24 ng/L (0-15); Troponin 5 2HR Delta -1.76 ABS# (0-10)
[2021-10-19 23:56] VITALS: BMI 18.3
[2021-10-20] VITALS (13 sets, daily range): BP systolic 108–163; BP diastolic 72–84; PULSE 74–98; RESP 16–22; TEMP 36.4–37.1; O2SAT 91–97
--- NOTE | 2021-10-20 00:06 | PM.HP ---
Providers/Chief Complaint Admitting Physician: Breanne Franco Primary Care Provider: Adama Olmedo MD Chief Complaint: ABD PAIN, LOW O2 History of Present Illness 86 year old with past medical history of dementia, hypertension, hyperlipidemia, COPD, coronary artery disease s/p hx of PCI/Stents and chronic stage 2 kidney disease who presented to ER with shortness of breath. Symptoms have been ongoing for the past week. Associated with generalized weakness, poor po intake. Yesterday noted to have abdominal pain as well. Upon arrival to ER patients initial vitals showed a BP of 113/52, HR 92, temp of 97.9, and o2 sat of 92% on 2L via NC. Lab showed a WBC of 11.4, hemoglobin of 13.0, hematocrit of 42.7 and a platelet count of 224. Sodium of 137, potassium of 6.2, chloride of 107, bicarb of 16, BUN of 100 and a creatinine of 3.9 - baseline around 2.4. Trop T 53, 51.24 (Delta neg 1.76) Lipase of 165. COVID 19 was detected. Patient was given a 500cc bolus and decadron 6 mg IV x1. Chest xray did not show any acute findings. Review of Systems General: Reports: ROS unobtainable due to medical condition (patient very drowsy ) Medications/Allergies Home Medications Medication Instructions Recorded Confirmed Last Taken Type budesonide-formoterol HFA 160 2 puff INHALATION BID 07/11/21 09/13/21 09/12/21 History mcg-4.5 mcg/actuation aerosol inhaler (Symbicort) atorvastatin 40 mg tablet 80 mg PO BEDTIME 30 Days #30 tab 07/13/21 09/13/21 09/12/21 Rx metoprolol tartrate 25 mg tablet 25 mg PO Q12H 30 Days #60 tab 07/13/21 09/13/21 09/12/21 Rx nitroglycerin 0.4 mg sublingual 0.4 mg SUBLINGUAL Q5M PRN 30 Days 07/13/21 09/13/21 Unknown Rx tablet (Nitrostat) #30 tab clopidogrel 75 mg tablet 75 mg PO DAILY 09/13/21 09/13/21 09/12/21 History albuterol sulfate 90 mcg/actuation 2 puff INHALATION Q6H PRN #1 g 09/15/21 09/13/21 Unknown Rx aerosol inhaler amoxicillin 875 mg-potassium 1 tab PO BID #6 tab 09/15/21 Unknown Rx clavulanate 125 mg tablet acetaminophen 500 mg tablet 500 mg PO Q6H PRN 5 Days #20 tab 10/19/21 Unknown Rx calcium carbonate 1,000 1 tab PO TID PRN 7 Days #21 tab 10/19/21 Unknown Rx mg-simethicone 60 mg chewable tablet (Maalox Advanced) famotidine 20 mg tablet (Pepcid) 20 mg PO BID PRN 10 Days #20 tab 10/19/21 Unknown Rx ondansetron HCl 4 mg tablet 4 mg PO TID PRN 4 Days #12 tab 10/19/21 Unknown Rx (Zofran) Allergies Allergy/AdvReac Type Severity Reaction Status Date / Time No Known Allergies Allergy Verified 08/18/21 08:37 PFSH Acute PFSH: Medical History (Updated 10/19/21 @ 22:00 by Kristal Sheets MD) Chronic kidney disease Chronic kidney disease, stage III (moderate) Cognitive impairment Colitis Constipation COPD (chronic obstructive pulmonary disease) Coronary artery disease COVID Hyperlipidemia Hypertension Non-ST elevation myocardial infarction (NSTEMI) SVT (supraventricular tachycardia) Surgical History Stented coronary artery 3 stents at [facility] 16 years ago Family History Denies family history of Clotting disorder Chronic kidney disease (CKD) Social History Smoking and tobacco status: former smoker Quit status (tobacco): has quit using tobacco Former quit date comment: Quit smoking few weeks ago Alcohol intake: never Household members: family Housing: House Vitals/I&O/Wt Last Vital Signs Temp 97.9 F 10/19/21 18:06 Pulse 92 10/19/21 20:43 Resp 21 H 10/19/21 20:43 BP 113/82 10/19/21 20:43 Pulse Ox 92 10/19/21 20:43 10/19/21 10/19/21 10/20/21 14:59 22:59 06:59 Intake Total 500 / 500 Balance 500 / 500 Weight last 48 hrs Weight 63.503 kg Physical Exam Narrative: General- drowsy, sleeping on 2 L via nasal cannula HEENT -grossly unremarkable Chest -no labored respiration Abdomen - nontender Extremities-no edema Data : 10/20/21 02:30 10/20/21 02:30 A&P Assessment and plan (1) COVID: Status: Acute (2) Acute kidney injury superimposed on CKD: Status: Acute (3) Uremic encephalopathy: Status: Acute (4) Abdominal pain: Status: Acute (5) Dyspnea: Status: Acute Plan COVID-19 infection Started on Decadron 6 mg IV daily Chest x-ray no acute findings No indication for remdesivir Covid labs in am Contact/droplet precautions Acute on chronic stage 3 kidney disease / Hyperkalemia Cr baseline around 2.4 Increased to 3.9 / Potassium of 6.2 Sheikh placed Likely pre-renal Repeat potassium - will tx if elevated BMP in am Monitor u/o Renal med dosing Chronic obstructive pulmonary disease Duoneb q6hr Advair BID Supplemental 02 as needed Abdominal Pain Will order CT abd/Pelvis w/o contrast Lipase 165 CLD Zofran PRN Additional Medical problems CAD s/p hx of PCI/Stent Hx of Epistaxis on plavix Hypertension Dyslipidemia Dementia DVT ppx Heparin 5000 units q8hr ( monitor for bleeding ) Attestations Medical Necessity Statement*: Anticipate over 2 midnight stay in hospital for eval and treatment Time Spent in Patient Care: Greater than 35 minutes (>than 50% of time spent in counselling and/or direct pt care on unit). Coding Level of Care Code Acute Paint Roller Winder for Rubén Hanna Diagnoses COVID U07.1 Acute kidney injury superimposed on CKD N17.9; N18.9 Uremic encephalopathy G93.49; N19 Abdominal pain R10.9 Dyspnea R06.00
[2021-10-20] MEDS: sodium chloride 0.9% 1,000 ML 50 ML IV (00:45)
[2021-10-20] MEDS: heparin 5,000 unit/mL INJ 1 mL 5000 UNIT SUBCUT (00:46)
--- NOTE | 2021-10-20 02:07 | CTR_ITS ---
PROCEDURE INFORMATION: Exam: CT Abdomen And Pelvis Without Contrast Exam date and time: 10/20/2021 2:07 AM Age: 86 years old Clinical indication: Abdominal pain; Generalized TECHNIQUE: Imaging protocol: Computed tomography of the abdomen and pelvis without contrast. Radiation optimization: All CT scans at this facility use at least one of these dose optimization techniques: automated exposure control; mA and/or kV adjustment per patient size (includes targeted exams where dose is matched to clinical indication); or iterative reconstruction. COMPARISON: CT chest abd pel w con* 10/05/2020 8:32 PM RADIATION DOSE METRICS: Total DLP (mGy-cm): 817.12 FINDINGS: Lower thorax: Emphysematous changes noted at the lung bases. Liver: No mass. Gallbladder and bile ducts: No calcified stones. No ductal dilation. Pancreas: No ductal dilation. Spleen: No splenomegaly. Adrenal glands: Normal. No mass. Kidneys and ureters: Suspect bilateral renal cysts, incompletely evaluated due to motion artifact measuring approximately 3.4 cm in the left upper pole. No hydronephrosis. Stomach and bowel: Colonic diverticulosis without findings of diverticulitis. No dilated bowel loops. No high-grade obstruction. Appendix: No evidence of appendicitis. Intraperitoneal space: No free air. No significant fluid collection. Vasculature: Atherosclerotic changes of the aorta and its branch vessels. Lymph nodes: No enlarged lymph nodes. Urinary bladder: Unremarkable as visualized. Reproductive: Partially imaged enlarged right testicle and/or hydrocele. Enlarged prostate gland. Bones/joints: Degenerative changes of the lumbar spine. Soft tissues: Unremarkable. Other findings: Motion limited examination. CT/CT abdomen pelvis wo con [id number] IMPRESSION: 1. Partially imaged enlarged right testicle and/or hydrocele. Follow-up evaluation with testicular ultrasound. 2. Colonic diverticulosis without findings of diverticulitis. COMMENTS: Consistent with the [employer]'s Incidental Findings Committee white paper (J Am Chacho Radiol 2018): Any incidental renal lesion less than 1 cm or classified as too small to characterize, or any incidental cystic renal lesion characterized as simple-appearing, is likely benign. No follow-up imaging is recommended for these lesions per consensus recommendations based on imaging criteria.
[2021-10-20 02:43] LABS: Hematocrit 37.6 % (42.0-52.0); Hemoglobin 11.7 g/dL (11.7-16.6); Mean Corpuscular HGB Conc 31.1 g/dL (30.0-36.0); Mean Corpuscular Hemoglobin 29.7 pg (28.0-34.0); Mean Corpuscular Volume 95.4 fl (80-94); Mean Platelet Volume 11.5 fL (7.4-10.4); Platelet Count 196 10^3/cmm (130-400); Red Blood Count 3.94 10^6/uL (4.1-5.3); Red Cell Distribution Width 17.2 % (12.1-15.1)
[2021-10-20 03:01] LABS: Alanine Aminotransferase 14 U/L (0-41); Albumin Level 3.7 g/dL (3.5-5.2); Alkaline Phosphatase 61 IU/L (40-130); Calcium 9.3 mg/dL (8.5-10.5); Carbon Dioxide 14 mmol/L (22-29); Chloride 107 mmol/L (98-107); Globulin 2.9 g/dL (1.3-4.6); Glucose 106 mg/dL (65-115); Osmolality Calculated 312 mOsm/kg (285-295); Sodium 135 mmol/L (136-145); Total Bilirubin 0.2 mg/dL (0.15-1.2); Total Protein 6.6 g/dL (6.6-8.7)
[2021-10-20 03:02] LABS: Anion Gap 20.8 (5-19); Aspartate Amino Transferase 22 U/L (0-40)
[2021-10-20 03:11] LABS: Slide Review Slide Review Perform; Troponin 5 6HR 48.49 ng/L (0-15)
[2021-10-20 03:13] LABS: Absolute Neutrophil 10.3 10^3/cmm (1.4-6.5); Absolute Segmented Neutrophil 8.1 10/cmm (1.6-7.1); Band Neutrophils Absolute 2.2 10^3/cmm (0.0-1.2); Eosinophils 0 %; Lymphocytes 1 %; Lymphocytes Absolute 0.4 10^3/cmm (1.2-3.4); Platelet Estimate Normal (Normal); Segmented Neutrophils 74 %; Total Cells Counted 100 (0-100)
[2021-10-20 03:14] LABS: Anisocytosis 1+
[2021-10-20 03:15] LABS: Troponin 5 6HR Delta -4.51 ng/L (0-12)
[2021-10-20 03:21] LABS: Blood Urea Nitrogen 101 mg/dL (8-23); Potassium 6.8 mmol/L (3.5-5.1)
[2021-10-20 05:12] LABS: Glucose Point of Care 97 mg/dL (70-110)
[2021-10-20] MEDS: dextrose 50% syringe 50 mL IVP (06:10)
[2021-10-20] MEDS: insulin regular-human 10 UNIT in SYRINGE 1 EACH IVP (07:01)
[2021-10-20 07:21] LABS: Glucose Point of Care 227 mg/dL (70-110)
[2021-10-20 08:17] LABS: Glucose Point of Care 159 mg/dL (70-110)
[2021-10-20] MEDS: ipratropium-albuterol 3 mL Neb INHALATION ×4 (08:27→21:05)
[2021-10-20 09:33] LABS: Anion Gap 21.2 (5-19); Calcium 9.1 mg/dL (8.5-10.5); Carbon Dioxide 14 mmol/L (22-29); Chloride 105 mmol/L (98-107); Glucose 165 mg/dL (65-115); Osmolality Calculated 313 mOsm/kg (285-295); Potassium 5.2 mmol/L (3.5-5.1); Sodium 135 mmol/L (136-145)
[2021-10-20] MEDS: metoprolol tartrate 25 mg Tablet PO ×2 (09:35→20:16)
[2021-10-20] MEDS: famotidine 20 mg Tablet PO ×2 (09:35→17:11)
[2021-10-20 09:39] LABS: Blood Urea Nitrogen 96 mg/dL (8-23)
--- NOTE | 2021-10-20 10:19 | DCPLANNER ---
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 Patient was admitted to hospital.
[2021-10-20 11:05] LABS: Glucose Point of Care 287 mg/dL (70-110)
[2021-10-20] MEDS: benzonatate 100 mg Capsule 200 MG PO ×3 (11:42→20:16)
[2021-10-20 13:01] LABS: Creatine Phosphokinase 70 U/L (39-308)
[2021-10-20 16:59] LABS: Glucose Point of Care 101 mg/dL (70-110)
--- NOTE | 2021-10-20 16:59 | P.PN_ITS ---
Vitals/I&O/Wt Last Vital Signs Temp 98.3 F 10/20/21 15:25 Pulse 84 10/20/21 15:25 Resp 18 10/20/21 15:25 BP 126/72 10/20/21 15:25 Pulse Ox 94 10/20/21 15:25 10/20/21 10/20/21 10/20/21 06:59 14:59 22:59 Intake Total 432.5 / 932.5 720.1 / 720.1 Output Total 250 / 250 550 / 550 Balance 182.5 / 682.5 170.1 / 170.1 Weight last 48 hrs Weight 59.477 kg Weight 63.503 kg Physical Exam Const: COMMON NORMALS: no acute distress and patient oriented x3 GENERAL APPEARANCE: frail appearing OTHER: Very hard of hearing. HENMT: COMMON NORMALS: oropharynx normal Neck/C-Spine: COMMON NORMALS: no JVD Resp: COMMON NORMALS: normal respiratory effort and clear to auscultation bilaterally AUSCULTATION: clear to auscultation bilaterally Cardio: COMMON NORMALS: no JVD, regular rhythm, S1 normal heart sound present, S2 normal heart sound present and No murmurs present (Cardio) RHYTHM: regular rhythm HEART SOUNDS: S1 normal heart sound present and S2 normal heart sound present GI: COMMON NORMALS: Normal to inspection, nondistended, normoactive bowel sounds present, Soft to palpation and non-tender PALPATION: Yes Soft to palpation Extremity: COMMON NORMALS: no joint enlargement and no pedal edema Neuro: COMMON NORMALS: patient oriented x3 and moves all extremities Skin: COMMON NORMALS: no rashes or lesions noted GENERAL SKIN EXAM: no rashes or lesions noted Data : 10/20/21 02:30 10/20/21 09:04 A&P Assessment and plan (1) Hyperkalemia: Potassium was as high as 6.8. Received insulin and dextrose. Change to low potassium diet. Kayexalate considered, however, on recheck potassium appears to be improving down to 5.2. Will recheck again. Continue low potassium diet. Status: Acute (2) Acute kidney injury superimposed on CKD: KEEGAN on CKD. Received fluid challenge. CK checked, not elevated. Unclear whether this is progression of his chronic kidney disease, or actually acute kidney injury. CT abdomen pelvis without obstructive nephropathy. Avoid nephrotoxins. Recheck renal function. His son is not sure whether he takes NSAIDs at home. We will try to see if he can tell us, although he is very hard of hearing. Discussed with son to avoid NSAIDs. Status: Acute (3) COVID: HeDiscussed with his son. He qualifies as severe illness given he is requiring oxygen. He was not started on remdesivir I imagine secondary to acute kidney injury/and stable renal function, however, son states that under no circumstance would they want him to receive remdesivir. He otherwise appears to be doing well on 3 L of oxygen. Son states that in case of cardiac arrest he would want shock/CPR, although does not appear they had to formally discuss this. Will need to confirm with patient. He is listed as full code on admission. Son states they would not want intubation in case of progression of illness with COVID-19 as he states he had heard on rumble ventilators like a sentence. Asked about oxygen tent instead. Discussed currently he is still on minimal oxygen support. Discussed it is difficult to predict clinical course, although so far he has been doing well in terms of his oxygenation. Discussed that mechanical ventilation would be a consideration in case of much more severe course of illness is an option for lung protective ventilation, although certainly if illness is severe and often difficult to guarantee recovery, although with that severity of illness by that point other options for already been exhausted. In case severity of illness worsened and he required mechanical ventilatory support this could be a consideration at that point depending on patient's wishes. Discussed that there are a number of intermediate steps that we could still take in between. He also reported having some cough earlier. Added antitussives. Currently on Decadron. Continue. Oxygen support as tolerating. VTE prophylaxis with heparin. Status: Acute (4) Uremic encephalopathy: He is awake and alert. This appears possibly with improvement, although he is extremely hard of hearing, possibly making communication difficulties presentation. Status: Acute (5) Abdominal pain: CT abdomen pelvis largely unremarkable, with enlarged right testicle possible hydrocele. Requested testicular ultrasound. Status: Acute (6) Dyspnea: As above. Status: Acute Plan Chronic obstructive pulmonary disease Duoneb q6hr Advair BID Supplemental 02 as needed Additional Medical problems CAD s/p hx of PCI/Stent Hx of Epistaxis on plavix Hypertension Dyslipidemia Dementia DVT ppx Heparin 5000 units q8hr ( monitor for bleeding ) Attestations Medical Necessity Statement*: Continue admission for assessment management of KEEGAN on CKD, hyperkalemia, hypoxia with COVID-19. Coding Level of Care Code Acute Process Control Board Operator for Chg Fwd Diagnoses COVID U07.1 Acute kidney injury superimposed on CKD N17.9; N18.9 Uremic encephalopathy G93.49; N19 Abdominal pain R10.9 Dyspnea R06.00 Hyperkalemia E87.5
[2021-10-20] MEDS: guaiFENesin-dextromethorphan UDC 10 mL PO (17:12)
[2021-10-20] MEDS: dexamethasone 10 mg/mL INJ 6 MG IVP (18:13)
--- NOTE | 2021-10-20 18:23 | PC.NURSE ---
Addendum entered by Jaymie Grant RN 10/20/21 18:25: No stool sample for testing. Original Note: Patient Alert and NAVAJO, difficult time understanding this nurse and staff. Is getting OOB to bathroom with assist and walker and tolerating well. Needs reminded to leave on oxygen, humidifier for oxygen placed earlier in shift. No c/o pain other than coughing. Physician put orders in. No new events and will handoff to oncoming nurse at shift change.
[2021-10-20 19:31] LABS: Calcium 8.6 mg/dL (8.5-10.5); Carbon Dioxide 19 mmol/L (22-29); Chloride 101 mmol/L (98-107); Glucose 138 mg/dL (65-115); Osmolality Calculated 308 mOsm/kg (285-295); Sodium 133 mmol/L (136-145)
[2021-10-20 19:36] LABS: Anion Gap 18.6 (5-19); Blood Urea Nitrogen 97 mg/dL (8-23); Potassium 5.6 mmol/L (3.5-5.1)
[2021-10-20] MEDS: atorvastatin 40 mg Tablet 80 MG PO (20:16)
[2021-10-21] VITALS (15 sets, daily range): BP systolic 123–145; BP diastolic 63–77; PULSE 66–98; RESP 12–18; TEMP 36.4–36.9; O2SAT 89–95
[2021-10-21 05:40] LABS: Basophils % 0.1 %; Hematocrit 30.1 % (42.0-52.0); Hemoglobin 9.9 g/dL (11.7-16.6); Lymphocytes # 0.6 10^3/uL (0.8-4.8); Lymphocytes % 7.8 %; Mean Corpuscular HGB Conc 32.9 g/dL (30.0-36.0); Mean Corpuscular Hemoglobin 29.7 pg (28.0-34.0); Mean Corpuscular Volume 90.4 fl (80-94); Mean Platelet Volume 11.2 fL (7.4-10.4); Monocytes # 0.3 10^3/uL (0.2-0.9); Monocytes % 3.3 %; Neutrophils # 7.19 10^3/uL (1.8-7.7); Neutrophils % 87.6 %; Nucleated Red Blood Cells % 0 %; Platelet Count 164 10^3/cmm (130-400); Red Blood Count 3.33 10^6/uL (4.1-5.3); Red Cell Distribution Width 17.1 % (12.1-15.1); White Blood Count 8.2 10^3/uL (4.0-10.0)
[2021-10-21 06:06] LABS: D Dimer 0.46 ug/mIFEU (0-0.59)
[2021-10-21 06:23] LABS: Procalcitonin 0.17 ng/mL (0-0.5)
[2021-10-21 06:36] LABS: Alanine Aminotransferase 9 U/L (0-41); Alkaline Phosphatase 42 IU/L (40-130); Aspartate Amino Transferase 16 U/L (0-40); C Reactive Protein 3.7 mg/L (0.0-4.9); Carbon Dioxide 19 mmol/L (22-29); Chloride 101 mmol/L (98-107); Globulin 2.7 g/dL (1.3-4.6); Glucose 158 mg/dL (65-115); Osmolality Calculated 307 mOsm/kg (285-295); Sodium 133 mmol/L (136-145); Total Bilirubin 0.2 mg/dL (0.15-1.2); Total Protein 5.7 g/dL (6.6-8.7)
[2021-10-21 06:46] LABS: Blood Urea Nitrogen 89 mg/dL (8-23)
[2021-10-21] MEDS: ipratropium-albuterol 3 mL Neb INHALATION ×3 (08:04→20:22)
[2021-10-21] MEDS: metoprolol tartrate 25 mg Tablet PO ×2 (10:14→20:13)
[2021-10-21] MEDS: benzonatate 100 mg Capsule 200 MG PO ×3 (10:14→20:13)
[2021-10-21] MEDS: famotidine 20 mg Tablet PO ×2 (10:15→18:18)
[2021-10-21 11:00] LABS: Glucose Point of Care 144 mg/dL (70-110)
[2021-10-21 17:13] LABS: Glucose Point of Care 98 mg/dL (70-110)
[2021-10-21] MEDS: dexamethasone 10 mg/mL INJ 6 MG IVP (18:17)
[2021-10-21] MEDS: atorvastatin 40 mg Tablet 80 MG PO (20:12)
[2021-10-21] MEDS: guaiFENesin-dextromethorphan UDC 10 mL PO (20:13)
--- NOTE | 2021-10-21 20:29 | PM.PN ---
Subjective Subjective: He feels better. Breathing better. Cough is getting better. No nausea or vomiting. No diarrhea or abdominal discomfort. Vitals/I&O/Wt Last Vital Signs Temp 98.5 F 10/21/21 18:55 Pulse 81 10/21/21 20:20 Resp 17 10/21/21 20:20 BP 129/65 10/21/21 18:55 Pulse Ox 92 10/21/21 20:20 10/21/21 10/21/21 10/21/21 06:59 14:59 22:59 Intake Total 1460 / 1460 Output Total 200 / 1350 300 / 300 Balance -200 / 480.1 1460 / 1460 -300 / 1160 Weight last 48 hrs Weight 59.477 kg Physical Exam Const: COMMON NORMALS: no acute distress and patient oriented x3 GENERAL APPEARANCE: cooperative, comfortable and frail appearing OTHER: Very hard of hearing. HENMT: COMMON NORMALS: oropharynx normal Neck/C-Spine: COMMON NORMALS: no JVD Resp: COMMON NORMALS: normal respiratory effort and clear to auscultation bilaterally AUSCULTATION: clear to auscultation bilaterally Cardio: COMMON NORMALS: no JVD, regular rhythm, S1 normal heart sound present, S2 normal heart sound present and No murmurs present (Cardio) RHYTHM: regular rhythm HEART SOUNDS: S1 normal heart sound present and S2 normal heart sound present GI: COMMON NORMALS: Normal to inspection, nondistended, normoactive bowel sounds present, Soft to palpation and non-tender PALPATION: Yes Soft to palpation Extremity: COMMON NORMALS: no joint enlargement and no pedal edema Neuro: COMMON NORMALS: patient oriented x3 and moves all extremities Skin: COMMON NORMALS: no rashes or lesions noted GENERAL SKIN EXAM: no rashes or lesions noted Data : 10/21/21 05:29 10/21/21 05:29 A&P Assessment and plan (1) Acute kidney injury superimposed on CKD: Mild improvement in creatinine, down to 3.4. Improvement in hyperkalemia. Reassess renal function in the morning, and if continues to improve discussed with him and his son may possibly be able to discharge with outpatient follow-up. KEEGAN on CKD. Received fluid challenge. CK checked, not elevated. Unclear whether this is progression of his chronic kidney disease, or actually acute kidney injury. CT abdomen pelvis without obstructive nephropathy. Avoid nephrotoxins. Avoid NSAIDs. Status: Acute (2) Hyperkalemia: Improving. Continue low potassium diet. Status: Acute (3) COVID: Improving, weaned off oxygen down to room air, saturating 92%. Reassess oxygenation. While in the hospital continue Decadron. Supportive care, and ptosis. VTE prophylaxis with heparin. Status: Acute (4) Uremic encephalopathy: Resolved. He is awake and alert. This appears possibly with improvement, although he is extremely hard of hearing, possibly making communication difficulties presentation. Status: Acute (5) Abdominal pain: CT abdomen pelvis largely unremarkable, with enlarged right testicle possible hydrocele. Requested testicular ultrasound. As he documented that he refused the ultrasound. He is not bothered by pain or discomfort. Status: Acute (6) Dyspnea: As above. Status: Acute Plan Chronic obstructive pulmonary disease Duoneb q6hr Advair BID Supplemental 02 as needed Additional Medical problems CAD s/p hx of PCI/Stent Hx of Epistaxis on plavix Hypertension Dyslipidemia Dementia DVT ppx Heparin 5000 units q8hr ( monitor for bleeding ) Attestations Medical Necessity Statement*: Continue admission for reassessment of acute kidney injury on chronic kidney disease, improving hyperkalemia, COVID-19 with improving hypoxia, disposition planning. Coding Level of Care Code Acute Rigger Supervisor for Rubén Hanna Diagnoses Hyperkalemia E87.5 Acute kidney injury superimposed on CKD N17.9; N18.9 COVID U07.1 Uremic encephalopathy G93.49; N19 Abdominal pain R10.9 Dyspnea R06.00
[2021-10-21 20:35] LABS: Glucose Point of Care 115 mg/dL (70-110)
[2021-10-22 04:00] VITALS: BP 120/58; PULSE 70; RESP 17; TEMP 36.5; O2SAT 90
[2021-10-22 05:44] LABS: Basophils % 0.2 %; Hematocrit 35.1 % (42.0-52.0); Hemoglobin 11.2 g/dL (11.7-16.6); Lymphocytes # 0.4 10^3/uL (0.8-4.8); Lymphocytes % 3.7 %; Mean Corpuscular HGB Conc 31.9 g/dL (30.0-36.0); Mean Corpuscular Hemoglobin 29.3 pg (28.0-34.0); Mean Corpuscular Volume 91.9 fl (80-94); Mean Platelet Volume 11.7 fL (7.4-10.4); Monocytes # 0.3 10^3/uL (0.2-0.9); Monocytes % 3.2 %; Neutrophils # 9.58 10^3/uL (1.8-7.7); Neutrophils % 91.8 %; Nucleated Red Blood Cells % 0 %; Platelet Count 195 10^3/cmm (130-400); Red Blood Count 3.82 10^6/uL (4.1-5.3); Red Cell Distribution Width 17.2 % (12.1-15.1); White Blood Count 10.4 10^3/uL (4.0-10.0)
[2021-10-22 05:54] VITALS: PULSE 80
[2021-10-22 06:07] LABS: Calcium 7.3 mg/dL (8.5-10.5); Carbon Dioxide 20 mmol/L (22-29); Chloride 104 mmol/L (98-107); Glucose 137 mg/dL (65-115); Osmolality Calculated 311 mOsm/kg (285-295); Sodium 136 mmol/L (136-145)
[2021-10-22 06:16] LABS: Blood Urea Nitrogen 87 mg/dL (8-23)
[2021-10-22 06:19] LABS: Glucose Point of Care 136 mg/dL (70-110)
[2021-10-22 06:57] VITALS: BP 121/73; PULSE 70; RESP 16; TEMP 36.6; O2SAT 92
[2021-10-22] MEDS: ipratropium-albuterol 3 mL Neb INHALATION (08:18)
[2021-10-22 08:19] VITALS: PULSE 85; RESP 18; O2SAT 92
[2021-10-22] MEDS: famotidine 20 mg Tablet PO (09:39)
[2021-10-22] MEDS: benzonatate 100 mg Capsule 200 MG PO (09:39)
[2021-10-22] MEDS: metoprolol tartrate 25 mg Tablet PO (09:39)
[2021-10-22 10:32] VITALS: O2SAT 88; O2SAT 91; O2SAT 93
--- NOTE | 2021-10-22 11:27 | PC.SOCIAL ---
IMM update IMM updated with patient's son. Verbalized an understanding. Initialled, dated, timed, and placed in chart.
[2021-10-22 11:55] LABS: Glucose Point of Care 132 mg/dL (70-110)
--- NOTE | 2021-10-22 14:02 | PC.NURSE ---
Addendum entered by Augusta Gimenez RN 10/22/21 14:04: Daiana called back with appointment time of 10/28/21 at 1300. dc plan updated Original Note: Daiana at Dr. Olmedo's office stated they would call patient with the appointment time and date due to Dr. Olmedo only being in office every other , discharge plan updated.
--- NOTE | 2021-10-22 21:15 | PM.DCS ---
Discharge Providers Date of Admission: 10/19/21 21:36 Date of Discharge: October 22, 2021 Attending Provider at Admission: Breanne Franco Attending Provider at Discharge: Rory Sage Primary Care Provider: Adama Olmedo MD Diagnoses at Discharge Discharge Diagnosis (1) Acute kidney injury superimposed on CKD: Status: Acute (2) Hyperkalemia: Status: Acute (3) COVID: Status: Acute (4) Uremic encephalopathy: Status: Acute (5) Abdominal pain: Status: Acute (6) Dyspnea: Status: Acute Reason for Visit Reason for Visit: ABD PAIN, LOW O2 Hospital Course Hospital Course 86-year-old gentleman very hard of hearing, with history of HTN, HLD, COPD, CAD status post PCI, stents, CKD stage II, dementia, was admitted for assessment management after presenting with shortness of breath, with symptoms ongoing for the prior week, with also generalized weakness, poor oral intake, episode of abdominal pain. Found to be COVID-19 positive on presentation. Also found to be in acute kidney injury with creatinine 3.6, and hyperkalemia, potassium was high at 6.8. CT abdomen pelvis on presentation with partial enlarged right testicle and/or hydrocele, chronic diverticulosis, no sign of hydronephrosis. Recently with poor oral intake, received fluid challenge, initially with also bicarbonate due to metabolic acidosis with acute renal failure. Due to new oxygen requirement, needing up to 3 L of oxygen by nasal cannula was treated with Decadron for severe COVID-19, other supportive care including antitussives due to bothersome cough. His oxygenation gradually improved, he weaned down to room air, subjectively was feeling much better. Cough resolving. For hyperkalemia received insulin dextrose, maintained on low potassium diet. Hyperkalemia gradually resolved. Renal function gradually continue to improve, creatinine down to 2.9. No further abdominal complaints, no nausea, tolerating oral intake. Subjectively he is feeling much better. Ultrasound was requested for follow-up of enlarged right testicle and/or hydrocele, however, he declined the test in the hospital. Please follow-up in office. Please reassess renal function, potassium. Recovery from COVID-19. Physical Exam Const: COMMON NORMALS: no acute distress and patient oriented x3 GENERAL APPEARANCE: cooperative, comfortable and frail appearing OTHER: Very hard of hearing. In good spirits. States he feels much better and ready to go home. HENMT: COMMON NORMALS: oropharynx normal Neck/C-Spine: COMMON NORMALS: no JVD Resp: COMMON NORMALS: normal respiratory effort and clear to auscultation bilaterally AUSCULTATION: clear to auscultation bilaterally Cardio: COMMON NORMALS: no JVD, regular rhythm, S1 normal heart sound present, S2 normal heart sound present and No murmurs present (Cardio) RHYTHM: regular rhythm HEART SOUNDS: S1 normal heart sound present and S2 normal heart sound present GI: COMMON NORMALS: Normal to inspection, nondistended, normoactive bowel sounds present, Soft to palpation and non-tender PALPATION: Yes Soft to palpation Extremity: COMMON NORMALS: no joint enlargement and no pedal edema Neuro: COMMON NORMALS: patient oriented x3 and moves all extremities Skin: COMMON NORMALS: no rashes or lesions noted GENERAL SKIN EXAM: no rashes or lesions noted Discharge Data Studies Completed and Pending Completed Studies During Hospitalization Category Date Time Status CT abdomen pelvis wo con [id number] Routine Cat Scan 10/20/21 02:07 Completed XR chest 1V portable [id number] Stat Exams 10/19/21 18:19 Completed Radiology Impressions Chest X-Ray 10/19/21 18:19 IMPRESSION: No acute findings. Abdomen/Pelvis CT 10/20/21 02:07 IMPRESSION: 1. Partially imaged enlarged right testicle and/or hydrocele. Follow-up evaluation with testicular ultrasound. 2. Colonic diverticulosis without findings of diverticulitis. COMMENTS: Consistent with the [employer]'s Incidental Findings Committee white paper (J Am Chacho Radiol 2018): Any incidental renal lesion less than 1 cm or classified as too small to characterize, or any incidental cystic renal lesion characterized as simple-appearing, is likely benign. No follow-up imaging is recommended for these lesions per consensus recommendations based on imaging criteria. Laboratory Results WBC 10.4 10^3/uL (4.0-10.0) H 10/22/21 05:30 RBC 3.82 10^6/uL (4.1-5.3) L 10/22/21 05:30 Hgb 11.2 g/dL (11.7-16.6) L 10/22/21 05:30 Hct 35.1 % (42.0-52.0) L 10/22/21 05:30 MCV 91.9 fl (80-94) 10/22/21 05:30 MCH 29.3 pg (28.0-34.0) 10/22/21 05:30 MCHC 31.9 g/dL (30.0-36.0) 10/22/21 05:30 RDW 17.2 % (12.1-15.1) H 10/22/21 05:30 Plt Count 195 10^3/cmm (130-400) 10/22/21 05:30 MPV 11.7 fL (7.4-10.4) H 10/22/21 05:30 Neut % (Auto) 91.8 % 10/22/21 05:30 Lymph % (Auto) 3.7 % 10/22/21 05:30 [place] % (Auto) 3.2 % 10/22/21 05:30 Eos % (Auto) 0.0 % 10/22/21 05:30 Baso % (Auto) 0.2 % 10/22/21 05:30 Neut # (Auto) 9.58 10^3/uL (1.8-7.7) H 10/22/21 05:30 Lymph # (Auto) 0.4 10^3/uL (0.8-4.8) L 10/22/21 05:30 [place] # (Auto) 0.3 10^3/uL (0.2-0.9) 10/22/21 05:30 Eos # (Auto) 0.0 10^3/uL (0.0-0.8) 10/22/21 05:30 Baso # (Auto) 0.0 10^3/uL (0.0-0.1) 10/22/21 05:30 Nucleated RBC % (auto) 0 % 10/22/21 05:30 Total Counted 100 (0-100) 10/20/21 02:30 Atypical Lymphs % 3.0 % (0-5) 10/20/21 02:30 Absolute Neutrophils 10.3 10^3/cmm (1.4-6.5) H 10/20/21 02:30 Segmented Neutrophils 74 % 10/20/21 02:30 Abs Segm Neuts (Man) 8.1 10/cmm (1.6-7.1) H 10/20/21 02:30 Band Neutrophils 20.0 % 10/20/21 02:30 Abs Band Neuts (Man) 2.2 10^3/cmm (0.0-1.2) H 10/20/21 02:30 Absolute Lymphocytes 0.4 10^3/cmm (1.2-3.4) L 10/20/21 02:30 Lymphocytes (Manual) 1 % 10/20/21 02:30 Monocytes (Manual) 0.0 % 10/20/21 02:30 Absolute Monocytes 0.0 10^3/cmm (0.1-0.6) L 10/20/21 02:30 Eosinophils (Manual) 0 % 10/20/21 02:30 Absolute Eosinophils 0.0 10^3/cmm (0.0-0.7) 10/20/21 02:30 Basophils (Manual) 0.0 % 10/20/21 02:30 Absolute Basophils 0.0 10^3/cmm (0.0-0.2) 10/20/21 02:30 Metamyelocytes 2.0 % 10/20/21 02:30 Nucleated RBCs # 0.0 /100WBC 10/22/21 05:30 Platelet Estimate Normal (Normal) 10/20/21 02:30 Anisocytosis 1+ H 10/20/21 02:30 D-Dimer 0.46 ug/mIFEU (0-0.59) 10/21/21 05:29 Sodium 136 mmol/L (136-145) 10/22/21 05:30 Potassium 5.0 mmol/L (3.5-5.1) 10/22/21 05:30 Chloride 104 mmol/L (98-107) 10/22/21 05:30 Carbon Dioxide 20 mmol/L (22-29) L 10/22/21 05:30 Anion Gap 17.0 (5-19) 10/22/21 05:30 BUN 87 mg/dL (8-23) H* 10/22/21 05:30 Creatinine 2.9 mg/dL (0.7-1.2) H 10/22/21 05:30 GFR Calculation Not Reportable 10/22/21 05:30 Glucose 137 mg/dL (65-115) H 10/22/21 05:30 POC Glucose 132 mg/dL (70-110) H 10/22/21 11:27 Calculated Osmolality 311 mOsm/kg (285-295) H 10/22/21 05:30 Calcium 7.3 mg/dL (8.5-10.5) L 10/22/21 05:30 Total Bilirubin 0.2 mg/dL (0.15-1.2) 10/21/21 05:29 AST 16 U/L (0-40) 10/21/21 05:29 ALT 9 U/L (0-41) 10/21/21 05:29 Alkaline Phosphatase 42 IU/L (40-130) 10/21/21 05:29 Creatine Kinase 70 U/L (39-308) 10/20/21 09:04 Troponin T Baseline 53 ng/L (0-15) H 10/19/21 20:40 Troponin T 120 Minute 51.24 ng/L (0-15) H 10/19/21 22:43 Delta Troponin T -1.76 ABS# (0-10) L 10/19/21 22:43 Troponin T Hi Sens 6Hr 48.49 ng/L (0-15) H 10/20/21 02:30 Troponin T Hi Sens 6Hr Delta -4.51 ng/L (0-12) L 10/20/21 02:30 C-Reactive Protein 3.7 mg/L (0.0-4.9) 10/21/21 05:29 NT-Pro-B Natriuret Pep 386 pg/mL (0-450) 10/19/21 20:40 Total Protein 5.7 g/dL (6.6-8.7) L 10/21/21 05:29 Albumin 3.0 g/dL (3.5-5.2) L 10/21/21 05:29 Globulin 2.7 g/dL (1.3-4.6) 10/21/21 05:29 Lipase 165 U/L (13-60) H 10/19/21 20:40 Procalcitonin 0.17 ng/mL (0-0.5) 10/21/21 05:29 Urine Color Yellow (Yellow) 10/19/21 18:50 Urine Appearance Clear (CLEAR) 10/19/21 18:50 Urine pH 5 (5-7) 10/19/21 18:50 Ur Specific [place] 1.020 (1.005-1.030) 10/19/21 18:50 Urine Protein Trace (Negative) 10/19/21 18:50 Urine Glucose (UA) Norm (Normal) 10/19/21 18:50 Urine Ketones Negative (Negative) 10/19/21 18:50 Urine Blood Trace (Negative) H 10/19/21 18:50 Urine Nitrate Negative (Negative) 10/19/21 18:50 Urine Bilirubin Neg (Negative) 10/19/21 18:50 Urine Urobilinogen Norm mg/dL (Negative) 10/19/21 18:50 Ur Leukocyte Esterase Negative (Negative) 10/19/21 18:50 Urine RBC None /hpf (0-2) 10/19/21 18:50 Urine WBC Rare /hpf (0-5) 10/19/21 18:50 Ur Squamous Epith Cells None /hpf (0-5) 10/19/21 18:50 Amorphous Sediment Not Reportable 10/19/21 18:50 Urine Bacteria Trace /hpf (NONE) 10/19/21 18:50 Nasal Influ A H1 2009 PCR Not detected (NOT DETECT) 10/19/21 18:50 Coronavirus 229E (PCR) Not detected (NOT DETECT) 10/19/21 18:50 Influenza A (H1) PCR Not detected (NOT DETECT) 10/19/21 18:50 Influenza A (H3) PCR Not detected (NOT DETECT) 10/19/21 18:50 Influenza Type A (PCR) Not detected (NOT DETECT) 10/19/21 18:50 Influenza Type B (PCR) Not detected (NOT DETECT) 10/19/21 18:50 SARS-CoV-2 (PCR) Detected (NOT DETECT) A 10/19/21 18:50 Vitals Last Vital Signs Temp 97.8 F 10/22/21 06:57 Pulse 85 10/22/21 08:19 Resp 18 10/22/21 08:19 BP 121/73 10/22/21 06:57 Pulse Ox 91 10/22/21 10:32 Discharge Plan Discharge Patient Disposition: Home Condition: Stable Prescriptions: New benzonatate 100 mg Capsule 200 mg PO TID PRN (Reason: Cough) Qty: 60 0RF Continued budesonide-formoterol [Symbicort] 160-4.5 mcg/actuation HFA aerosol inhaler 2 puff INHALATION BID 0RF atorvastatin 40 mg Tablet 80 mg PO BEDTIME 30 Days Qty: 30 3RF metoprolol tartrate 25 mg Tablet 25 mg PO Q12H 30 Days Qty: 60 3RF nitroglycerin [Nitrostat] 0.4 mg Tablet, Sublingual 0.4 mg SUBLINGUAL Q5M PRN (Reason: Chest Pain) 30 Days Qty: 30 1RF clopidogrel 75 mg tablet 75 mg PO DAILY 0RF Hold Instructions: Resume on 09/22/21. albuterol sulfate 90 mcg/actuation HFA aerosol inhaler 2 puff INHALATION Q6H PRN (Reason: Shortness Of Breath) Qty: 1 2RF Discharge Orders: Discharge Order (Routine); Ordered 10/22/21 Ordered By: Rory Sage Other Ambulatory Orders: DME: Oxygen (Order) Location: None Selected Ordered By: Kristal Sheets DME: Oxygen (Order) Location: None Selected Ordered By: Rory Sage Referrals: Adama Olmedo MD [Primary Care Provider] - 10/28/21 1:00 pm (Dr. Olmedo's office will call you with an appointment time. ) Discharge Diet: As Directed Discharge Activity: Increase activity as tolerated and Oxygen as instructed Patient Instructions: Acute Kidney Injury (GEN), Potassium Content of Foods List (GEN), Using Oxygen at Home (GEN), Hyperkalemia (GEN), Abdominal Pain (ED), Hypoxia (GEN), Acute Cough (ED), COVID-19 (Coronavirus Disease 2019) (GEN) Activity Restrictions/Additional Instructions: Your potassium was high on presentation. It is better now, but if high potassium recurs this may be dangerous. Please maintain low potassium diet to prevent accumulation of potassium. Potassium elevation was likely associated with acute kidney injury. Your kidney function appears to be improving, however, you do have also chronic kidney disease. Please have your primary doctor follow-up renal function, potassium level, and refer you to see a kidney specialist. Avoid any medications that may injure your kidneys, especially NSAIDs (like ibuprofen, naproxen, etc.). You are expected to continue to recover from Covid pneumonia. Maintain droplet and contact precautions until November 02 at which point it should be less likely for you to be able to spread the infection. Please return the emergency room if your oxygen saturation persistently remains less than 88% despite using oxygen and increasing flow. Please come back if you have any worsening abdominal pain, fever or chills, nausea or vomiting, diarrhea, blood in the stool, inability hold down liquid or solids, or any new concerning complaints. Come back to the emergency room if your symptoms worsen, have any shortness of breath, fever/chills, dehydration, inability tolerate food or drinks, any difficulty breathing, or any new or concerning complaints. Discharge Attestations Time Spent in Discharge Care*: greater than 30 min Status at Discharge: Cognitive status at discharge: cognitively intact, Behavioral status at discharge: cooperative, Quality Metrics Clinical Quality Measures [ No reported AMI, CVA or VTE this stay] Coding Level of Care Code Acute Chg FW DC note Diagnoses Acute kidney injury superimposed on CKD N17.9; N18.9 Hyperkalemia E87.5 COVID U07.1 Uremic encephalopathy G93.49; N19 Abdominal pain R10.9 Dyspnea R06.00
== END 2021-10-22 15:57 | disposition home or self-care (01) | DRG 177 ==
LOC: ER 22:10 → MEDSURG 23:04
PROVIDERS: Admitting Provider Hospitalist; Emergency Provider Emergency Medicine; PCP Family Medicine; Visit Provider Internal Medicine
DX: U07.1 COVID-19 (principal); J96.01 Acute respiratory failure with hypoxia; G93.49 Other encephalopathy; N17.9 Acute kidney failure, unspecified; E87.2 Acidosis; N18.2 Chronic kidney disease, stage 2 (mild); I12.9 Hypertensive chronic kidney disease with stage 1 through stage 4 chronic kidney disease, or unspecified chronic kidney disease; J44.9 Chronic obstructive pulmonary disease, unspecified; E78.5 Hyperlipidemia, unspecified; I25.10 Atherosclerotic heart disease of native coronary artery without angina pectoris; Z95.5 Presence of coronary angioplasty implant and graft; E87.5 Hyperkalemia; I25.2 Old myocardial infarction; Z87.891 Personal history of nicotine dependence; F03.90 Unspecified dementia, unspecified severity, without behavioral disturbance, psychotic disturbance, mood disturbance, and anxiety; Z79.51 Long term (current) use of inhaled steroids; Z79.02 Long term (current) use of antithrombotics/antiplatelets; N43.3 Hydrocele, unspecified; N50.89 Other specified disorders of the male genital organs
CPT/HCPCS: 36415; 36416; 71045; 74176; 80048; 80053; 81001; 82550; 82962; 83690; 83880; 84145; 84484; 85007; 85025; 85378; 86140; 87631; 87635; 93005; 94640; 96361; 96372; 96374; 96375; 97116; 97161; 99285; J1100; J1644; J1815; J3490; J7030; J7040

== ENCOUNTER 2021-10-22 20:47 | Inpatient (IN) | payer MEDICARE, MEDICAID, SELFPAY ==
[2021-10-22 20:49] VITALS: BP 152/108; PULSE 124; RESP 22; TEMP 37.6; O2SAT 85; BMI 19.5
--- NOTE | 2021-10-22 20:51 | XRR_ITS ---
PROCEDURE INFORMATION: Exam: XR Chest Exam date and time: 10/22/2021 8:51 PM Age: 86 years old Clinical indication: Shortness of breath; Additional info: SOB TECHNIQUE: Imaging protocol: XR of the chest. Views: 1 view. COMPARISON: CR XR chest 1V portable [id number] 10/19/2021 6:27 PM FINDINGS: Lungs: Stable COPD . Pleural spaces: Unremarkable. No pleural effusion. No pneumothorax. Heart/Mediastinum: Unremarkable. No cardiomegaly. Bones/joints: Unremarkable. XR/XR chest 1V portable [id number] IMPRESSION: Stable COPD .
--- NOTE | 2021-10-22 20:51 | ECG_ITS ---
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 Measurements Intervals [place] Rate: 118 P: 79 KS: 100 QRS: 85 QRSD: 87 T: 76 QT: 294 QTc: 412 Interpretive Statements SINUS TACHYCARDIA WITH SHORT [place] INTERVAL Compared to ECG 10/19/2021 20:43:35 Short [place] interval now present Sinus rhythm no longer present Electronically Signed On 10-24-2021 8:38:12 NATURAL RESOURCE ECONOMIST by Osiris Mcclelland M.D. [id number]
[2021-10-22 21:06] LABS: Basophils % 0.1 %; Hematocrit 39.8 % (42.0-52.0); Hemoglobin 12.6 g/dL (11.7-16.6); Lymphocytes # 0.7 10^3/uL (0.8-4.8); Lymphocytes % 4.3 %; Mean Corpuscular HGB Conc 31.7 g/dL (30.0-36.0); Mean Corpuscular Hemoglobin 29.7 pg (28.0-34.0); Mean Corpuscular Volume 93.9 fl (80-94); Mean Platelet Volume 11.2 fL (7.4-10.4); Monocytes % 6.1 %; Neutrophils # 14.67 10^3/uL (1.8-7.7); Neutrophils % 88.2 %; Nucleated Red Blood Cells % 0 %; Platelet Count 201 10^3/cmm (130-400); Red Blood Count 4.24 10^6/uL (4.1-5.3); Red Cell Distribution Width 17.3 % (12.1-15.1); White Blood Count 16.6 10^3/uL (4.0-10.0)
[2021-10-22 21:33] LABS: Lactic Sepsis W/Reflex 2.5 mmol/L (0.5-2.2)
[2021-10-22 21:41] LABS: Blood Gas Allen Test Pos; Blood Gas Sample Type Arterial
[2021-10-22 21:42] LABS: Alanine Aminotransferase 12 U/L (0-41); Albumin Level 4.1 g/dL (3.5-5.2); Alkaline Phosphatase 50 IU/L (40-130); Aspartate Amino Transferase 23 U/L (0-40); C Reactive Protein 4.1 mg/L (0.0-4.9); Calcium 7.4 mg/dL (8.5-10.5); Carbon Dioxide 19 mmol/L (22-29); Chloride 102 mmol/L (98-107); Globulin 2.2 g/dL (1.3-4.6); Glucose 83 mg/dL (65-115); NT Pro B Type Natriuretic Pept 731 pg/mL (0-450); Osmolality Calculated 311 mOsm/kg (285-295); Sodium 138 mmol/L (136-145); Total Bilirubin 0.3 mg/dL (0.15-1.2); Total Protein 6.3 g/dL (6.6-8.7)
[2021-10-22 21:44] LABS: Anion Gap 22.3 (5-19); Potassium 5.3 mmol/L (3.5-5.1)
[2021-10-22 21:45] LABS: Blood Urea Nitrogen 85 mg/dL (8-23)
[2021-10-22 21:50] VITALS: BP 113/81; PULSE 118; RESP 18; O2SAT 90
[2021-10-22 22:01] LABS: Blood Gas Operator Identificat JB; Oxygen Device NC
[2021-10-22] MEDS: acetaminophen 325 mg Tablet 650 MG PO (22:17)
[2021-10-22] MEDS: sodium chloride 0.9% 1,000 ML 999 ML IV (22:17)
[2021-10-22 22:19] LABS: ABG PH Result 7.42 (7.35-7.45); Arterial Blood Gas Hematocrit 34.7 % (42-52); Base Excess ABG -4.1 mmol/L (-2.0-2.0); Blood Gas Sample Site Radial, right; HCO3 ABG 19.4 mmol/L (22-26); PO2 ABG 80.4 mmHg (80.0-100.0)
--- NOTE | 2021-10-22 22:28 | W.ED.SOB ---
HPI - SOB/Dyspnea General: Chief Complaint: Shortness of Breath/Dyspnea Stated Complaint: SOB Time Seen by Provider: 10/22/21 20:51 Source: patient and EMS Mode of arrival: EMS Limitations: no limitations History of Present Illness: HPI Narrative: 86-year-old male who was recently seen here and discharged earlier today for Covid pneumonia when he is discharged he refused to be discharged on oxygen since he been home he had increasing dyspnea is in the low 80s on room air requiring 6 L of oxygen here to keep him in the 90s patient here is quite agitated and difficult. He states he feels very short of breath he has no chest pain no fever he is able speak in full sentences. Associated symptoms: Reports fever(s); Deny abdominal pain, chest pain, nausea or vomiting Review of Systems Const: Reports: fever(s); Denies: chills, body aches or change in appetite Eyes: Denies: blurry vision or eye discomfort ENMT: Denies: throat pain or dental pain Card: Denies: chest pain Resp: Reports: dyspnea and non-productive cough GI: Denies: abdominal pain, nausea, vomiting or diarrhea : Denies: dysuria Musc: Denies: neck pain or back pain Skin/Breast: Denies: rash Neuro: Denies: headache(s) Psych: Denies: depression Juan Carlos/Lymph: Denies: easy bruising All/Imm: Denies: urticaria PFSH ED PFSH: Medical History Chronic kidney disease Chronic kidney disease, stage III (moderate) Cognitive impairment Colitis Constipation COPD (chronic obstructive pulmonary disease) Coronary artery disease COVID Hyperlipidemia Hypertension Non-ST elevation myocardial infarction (NSTEMI) SVT (supraventricular tachycardia) Surgical History Stented coronary artery 3 stents at [facility] 16 years ago Family History Denies family history of Clotting disorder Chronic kidney disease (CKD) Social History Smoking and tobacco status: former smoker Quit status (tobacco): has quit using tobacco Former quit date comment: Quit smoking few weeks ago Alcohol intake: never Household members: family Housing: House Physical Exam Const: COMMON NORMALS: patient oriented x3 GENERAL APPEARANCE: in distress and ill appearing HENMT: COMMON NORMALS: normocephalic and atraumatic HEAD & SCALP: normocephalic and atraumatic Eye: COMMON NORMALS: Equal, round and reactive pupils present and EOMs intact bilaterally PUPIL: Yes Equal, round and reactive pupils present Neck/C-Spine: COMMON NORMALS: full ROM and supple Chest: COMMONS NORMALS: normal inspection of the chest and normal palpation of entire chest wall Resp: COMMON NORMALS: No retractions and clear to auscultation bilaterally EFFORT & INSPECTION: Yes tachypneic and Yes respiratory distress AUSCULTATION: clear to auscultation bilaterally Cardio: COMMON NORMALS: regular rhythm and No murmurs present (Cardio) RATE: tachycardic RHYTHM: regular rhythm GI: COMMON NORMALS: Normal to inspection, nondistended, normoactive bowel sounds present, Soft to palpation, non-tender and no masses PALPATION: Yes Soft to palpation Extremity: COMMON NORMALS: normal to inspection and full ROM Neuro: COMMON NORMALS: patient oriented x3, moves all extremities and no focal motor deficits Psych: COMMON NORMALS: mental status grossly normal, Normal thought process present and cooperative ATTITUDE: Yes agitated THOUGHT PROCESS: Normal thought process present Skin: COMMON NORMALS: no rashes or lesions noted and no wounds GENERAL SKIN EXAM: no rashes or lesions noted Course Vital Signs: Vital signs: Vital Signs Temperature 99.6 F 10/22/21 20:49 Pulse Rate 118 H 10/22/21 21:50 Respiratory Rate 18 10/22/21 21:50 Blood Pressure 113/81 10/22/21 21:50 Pulse Oximetry 90 10/22/21 21:50 MDM - SOB/Dyspnea Medical Decision Making Patient presents here with Covid pneumonia he is requiring 6 L of oxygen here he is also pretty combative and noncompliant will admit at this time possibly needs fdc placement due to his agitation and noncompliance wearing oxygen he is stable otherwise here no signs of pneumonia at this time Lab Data : 10/22/21 21:00 10/22/21 21:00 Labs/Radiology: Radiology Impressions Chest X-Ray 10/22/21 20:51 IMPRESSION: Stable COPD . Laboratory Results WBC 16.6 10^3/uL (4.0-10.0) H 10/22/21 21:00 RBC 4.24 10^6/uL (4.1-5.3) 10/22/21 21:00 Hgb 12.6 g/dL (11.7-16.6) 10/22/21 21:00 Hct 39.8 % (42.0-52.0) L 10/22/21 21:00 MCV 93.9 fl (80-94) 10/22/21 21:00 MCH 29.7 pg (28.0-34.0) 10/22/21 21:00 MCHC 31.7 g/dL (30.0-36.0) 10/22/21 21:00 RDW 17.3 % (12.1-15.1) H 10/22/21 21:00 Plt Count 201 10^3/cmm (130-400) 10/22/21 21:00 MPV 11.2 fL (7.4-10.4) H 10/22/21 21:00 Neut % (Auto) 88.2 % 10/22/21 21:00 Lymph % (Auto) 4.3 % 10/22/21 21:00 [place] % (Auto) 6.1 % 10/22/21 21:00 Eos % (Auto) 0.0 % 10/22/21 21:00 Baso % (Auto) 0.1 % 10/22/21 21:00 Neut # (Auto) 14.67 10^3/uL (1.8-7.7) H 10/22/21 21:00 Lymph # (Auto) 0.7 10^3/uL (0.8-4.8) L 10/22/21 21:00 [place] # (Auto) 1.0 10^3/uL (0.2-0.9) H 10/22/21 21:00 Eos # (Auto) 0.0 10^3/uL (0.0-0.8) 10/22/21 21:00 Baso # (Auto) 0.0 10^3/uL (0.0-0.1) 10/22/21 21:00 Nucleated RBC % (auto) 0 % 10/22/21 21:00 Nucleated RBCs # 0.0 /100WBC 10/22/21 21:00 D-Dimer 0.80 ug/mIFEU (0-0.59) H 10/22/21 21:30 Specimen Type Arterial 10/22/21 21:30 Sample Site Radial, right 10/22/21 21:30 ABG pH 7.42 (7.35-7.45) 10/22/21 21:30 ABG pCO2 30.0 mmHg (35-45) L 10/22/21 21:30 ABG pO2 80.4 mmHg (80.0-100.0) 10/22/21 21:30 ABG HCO3 19.4 mmol/L (22-26) L 10/22/21 21:30 ABG Base Excess -4.1 mmol/L (-2.0-2.0) L 10/22/21 21:30 Massimo Test Pos 10/22/21 21:30 Hematocrit 34.7 % (42-52) L 10/22/21 21:30 O2 Delivery Device Nc 10/22/21 21:30 O2 Liters/Min 6.0 % 10/22/21 21:30 Insulator Helper ID Fito 10/22/21 21:30 Sodium 138 mmol/L (136-145) 10/22/21 21:00 Potassium 5.3 mmol/L (3.5-5.1) H 10/22/21 21:00 Chloride 102 mmol/L (98-107) 10/22/21 21:00 Carbon Dioxide 19 mmol/L (22-29) L 10/22/21 21:00 Anion Gap 22.3 (5-19) H 10/22/21 21:00 BUN 85 mg/dL (8-23) H* 10/22/21 21:00 Creatinine 3.0 mg/dL (0.7-1.2) H 10/22/21 21:00 GFR Calculation Not Reportable 10/22/21 21:00 Glucose 83 mg/dL (65-115) 10/22/21 21:00 Calculated Osmolality 311 mOsm/kg (285-295) H 10/22/21 21:00 Lactic Acid 2.5 mmol/L (0.5-2.2) H 10/22/21 21:00 Calcium 7.4 mg/dL (8.5-10.5) L 10/22/21 21:00 Total Bilirubin 0.3 mg/dL (0.15-1.2) 10/22/21 21:00 AST 23 U/L (0-40) 10/22/21 21:00 ALT 12 U/L (0-41) 10/22/21 21:00 Alkaline Phosphatase 50 IU/L (40-130) 10/22/21 21:00 C-Reactive Protein 4.1 mg/L (0.0-4.9) 10/22/21 21:00 NT-Pro-B Natriuret Pep 731 pg/mL (0-450) H 10/22/21 21:00 Total Protein 6.3 g/dL (6.6-8.7) L 10/22/21 21:00 Albumin 4.1 g/dL (3.5-5.2) 10/22/21 21:00 Globulin 2.2 g/dL (1.3-4.6) 10/22/21 21:00 Discharge Plan Discharge Patient Disposition: Admitted As Inpatient Clinical Impression: Acute respiratory failure with hypoxemia, COVID-19 Condition: Stable Coding Level of Care Code ED Farm Implement Engine Mechanic for Chg Fwd Exam Comprehensive
[2021-10-22] MEDS: LORazepam 2 mg/mL INJ 1 mL 0.5 MG IVP (22:47)
[2021-10-22 22:49] LABS: Reflex Lactate Order REFLEX LACTIC ORDERD
--- NOTE | 2021-10-22 23:33 | CTR_ITS ---
PROCEDURE INFORMATION: Exam: CT Chest Without Contrast; Diagnostic Exam date and time: 10/22/2021 11:33 PM Age: 86 years old Clinical indication: Shortness of breath; Prior surgery; Surgery type: Coronary stents; Patient HX: SOB. Covid +. TECHNIQUE: Imaging protocol: Diagnostic computed tomography of the chest without contrast. Radiation optimization: All CT scans at this facility use at least one of these dose optimization techniques: automated exposure control; mA and/or kV adjustment per patient size (includes targeted exams where dose is matched to clinical indication); or iterative reconstruction. COMPARISON: CT chest wo con [id number] 10/07/2020 4:11 AM RADIATION DOSE METRICS: Total DLP (mGy-cm): 459.69 FINDINGS: Lungs: Interval appearance of mild posterior bibasilar atelectasis and/or pneumonia. Pleural spaces: Unremarkable. No pneumothorax. No pleural effusion. Heart: Stable severe calcified coronary artery disease. Probable proximal LAD endovascular stent. Aorta: Calcification of the abdominal aorta and/or iliac arteries consistent with atherosclerotic vessel disease. Lymph nodes: Calcified right hilar nodes and/or mediastinal nodes and/or lung granulomas consistent with old granulomatous disease. Kidneys and ureters: Right renal simple cyst measuring >1.0 cm . Bones/joints: Moderate thoracic spondylosis. Soft tissues: Unremarkable. CT/CT chest wo con [id number] IMPRESSION: 1. Interval appearance of mild posterior bibasilar atelectasis and/or pneumonia. 2. Stable severe calcified coronary artery disease. 3. Probable proximal LAD endovascular stent. COMMENTS: Consistent with the [place] [employer]'s Incidental Findings Committee white paper (J Am Chacho Radiol 2018): Any incidental renal lesion less than 1 cm or classified as too small to characterize, or any incidental cystic renal lesion characterized as simple-appearing, is likely benign. No follow-up imaging is recommended for these lesions per consensus recommendations based on imaging criteria.
[2021-10-22 23:34] VITALS: BP 103/59; PULSE 102; RESP 18; O2SAT 97
[2021-10-23] VITALS (16 sets, daily range): BP systolic 101–141; BP diastolic 65–93; PULSE 83–130; RESP 17–26; TEMP 36.6–37.4; O2SAT 90–98
--- NOTE | 2021-10-23 00:20 | ECG_ITS ---
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 Measurements Intervals [place] Rate: 91 P: 78 SD: 132 QRS: 85 QRSD: 85 T: 77 QT: 341 QTc: 421 Interpretive Statements SINUS RHYTHM Compared to ECG 10/22/2021 22:08:30 Sinus tachycardia no longer present Short SD interval no longer present Electronically Signed On 10-24-2021 8:37:12 HEARING THERAPY DIRECTOR by Osiris Mcclelland M.D. [id number]
--- NOTE | 2021-10-23 00:23 | P.HP_ITS ---
Providers/Chief Complaint Admitting Physician: Ana Larios DO Primary Care Provider: Adama lOmedo MD Chief Complaint: SOB History of Present Illness The patient is an 86-year-old male who presents with chief complaint of dyspnea and increasing supplemental oxygen demand. The patient was recently hospitalized at this facility from October 20, 2021 until October 22, 2021 with covert 19. The patient has a documented history of dementia. I am uncertain as to whether he is hard of hearing as well however during my encounter with him all he states that I feel well . He does not appear to have any neurological deficits. Unfortunately because of this, I am unable to obtain further history of present illness. He presents for further evaluation Review of Systems General: Reports: 10 or more systems reviewed and unremarkable except in HPI and below Medications/Allergies Home Medications Medication Instructions Recorded Confirmed Last Taken Type budesonide-formoterol HFA 160 2 puff INHALATION BID 07/11/21 10/20/21 09/12/21 History mcg-4.5 mcg/actuation aerosol inhaler (Symbicort) atorvastatin 40 mg tablet 80 mg PO BEDTIME 30 Days #30 tab 07/13/21 10/20/21 09/12/21 Rx metoprolol tartrate 25 mg tablet 25 mg PO Q12H 30 Days #60 tab 07/13/21 10/20/21 09/12/21 Rx nitroglycerin 0.4 mg sublingual 0.4 mg SUBLINGUAL Q5M PRN 30 Days 07/13/21 10/20/21 Unknown Rx tablet (Nitrostat) #30 tab clopidogrel 75 mg tablet 75 mg PO DAILY 09/13/21 10/20/21 09/12/21 History albuterol sulfate 90 mcg/actuation 2 puff INHALATION Q6H PRN #1 g 09/15/21 10/20/21 Unknown Rx aerosol inhaler benzonatate 100 mg capsule 200 mg PO TID PRN #60 cap 10/22/21 Unknown Rx Allergies Allergy/AdvReac Type Severity Reaction Status Date / Time No Known Allergies Allergy Verified 08/18/21 08:37 PFSH Acute PFSH: Medical History Chronic kidney disease Chronic kidney disease, stage III (moderate) Cognitive impairment Colitis Constipation COPD (chronic obstructive pulmonary disease) Coronary artery disease COVID Hyperkalemia Hyperlipidemia Hypertension Non-ST elevation myocardial infarction (NSTEMI) SVT (supraventricular tachycardia) Surgical History Stented coronary artery 3 stents at [facility] 16 years ago Family History Denies family history of Clotting disorder Chronic kidney disease (CKD) Social History Smoking and tobacco status: former smoker Quit status (tobacco): has quit using tobacco Former quit date comment: Quit smoking few weeks ago Alcohol intake: never Household members: family Housing: House Vitals/I&O/Wt Last Vital Signs Temp 99.6 F 10/22/21 20:49 Pulse 97 10/23/21 00:11 Resp 22 H 10/23/21 00:11 BP 101/65 10/23/21 00:11 Pulse Ox 97 10/23/21 00:11 10/22/21 10/22/21 10/23/21 14:59 22:59 06:59 Intake Total 1000 / 1000 Balance 1000 / 1000 Weight last 48 hrs Weight 63.503 kg Physical Exam Const: COMMON NORMALS: no acute distress, average body habitus, patient oriented x3, no limitations, healthy appearing, alert and well nourished HENMT: COMMON NORMALS: normocephalic, atraumatic, hearing grossly normal bilaterally, external ears normal, EAC's normal, TM's normal bilaterally, Normal external nose present, Normal nasal mucous membranes and turbinates present, b[address] oral mucous membranes, oropharynx normal, dentition normal and gingiva normal HEAD & SCALP: normal to inspection FACE & SINUS: normal facial exam NOSE: Normal external nose present EXTERNAL EAR: Yes external ears normal Eye: COMMON NORMALS: Equal, round and reactive pupils present, EOMs intact bilaterally, conjunctivae normal, no scleral icterus, no papilledema, normal visual peter by confrontation and fundi normal bilaterally GENERAL EYE: appearance normal, both eyes and all related structures ALIGNMENT: Yes alignment normal SCLERA: sclerae normal CORNEA: Yes corneas normal PUPIL: Yes Equal, round and reactive pupils present Neck/C-Spine: COMMON NORMALS: full ROM, no lymphadenopathy, supple, no meningeal signs, no JVD, Thyroid normal and No carotid bruits THYROID: Thyroid normal Chest: COMMONS NORMALS: normal inspection of the chest, normal palpation of entire chest wall, normal inspection of the breasts and normal palpation of the breasts Resp: COMMON NORMALS: normal respiratory effort, No retractions, No use of accessory muscles, clear to auscultation bilaterally and percussion normal EFFORT & INSPECTION: Yes able to speak in complete sentences AUSCULTATION: clear to auscultation bilaterally Cardio: COMMON NORMALS: no JVD, regular rate, regular rhythm, S1 normal heart sound present, S2 normal heart sound present, No gallops present (Cardio), No clicks present (Cardio), No murmurs present (Cardio), No rub (Cardio) and Peripheral pulses 2+ throughout PALPATION: normal PMI RATE: regular rate RHYTHM: regular rhythm GI: COMMON NORMALS: Normal to inspection, nondistended, normoactive bowel sounds present, Soft to palpation, non-tender, No hepatosplenomegaly present, no masses and no bruits INSPECTION: Yes normal to inspection AUSCULTATION: Yes normoactive bowel sounds : COMMON NORMALS: Yes no CVA tenderness, Yes normal external exam, Yes Testes normal, Yes scrotum normal, Yes no scrotal swelling and Yes No hernias present Back/Pelvis: COMMON NORMALS: no CVA tenderness Extremity: COMMON NORMALS: normal to inspection, full ROM, capillary refill normal, no joint enlargement, no clubbing, cyanosis or edema, no calf tenderness and no pedal edema Neuro: SENSORIUM/ORIENTATION: Yes alert CRANIAL NERVES: Yes CN normal except as noted MOTOR EXAM: 5/5 motor strength present throughout DEEP TENDON REFLEXES: Right triceps reflex intensity grade: 2+, Left triceps reflex intensity grade: 2+, Rt Biceps (C5, C6): 2+, Left biceps reflex intensity grade: 2+, Right brachioradialis reflex intensity grade: 2+, Left brachioradialis reflex intensity grade: 2+, Right patellar reflex intensity grade: 2+, Left patellar reflex intensity grade: 2+, Right ankle reflex intensity grade: 2+ and Left ankle reflex intensity grade: 2+ PUPIL EXAM: Normal pupillary reactivity/response: bilateral, Dilated: bilateral, Pinpoint: bilateral, Mid position: bilateral, Sluggish: bilateral and Fixed/non-reactive: bilateral Psych: COMMON NORMALS: mental status grossly normal, Normal thought process present, cooperative, normal affect, speech normal, activity/motor behavior normal, denies hallucinations, denies homicidal ideation and denies suicidal ideation Skin: COMMON NORMALS: no rashes or lesions noted, no wounds, turgor normal, no jaundice, no petechiae and no mottling GENERAL SKIN EXAM: no rashes or lesions noted Data : 10/22/21 21:00 10/22/21 21:00 Micro: Microbiology 10/22/21 21:35 Blood Culture - Preliminary Blood SPECIMEN COLLECTED 10/22/21 21:30 Blood Culture - Preliminary Blood SPECIMEN COLLECTED A&P Assessment and plan (1) Acute respiratory failure with hypoxemia: Status: Acute Plan Dyspnea due to questional pneumonia. Chest x-ray unremarkable. CT chest without IV contrast demonstrates possible developing infiltrate. This does not appear to be consistent with covert 19. Influenza testing pending. Azithromycin 500 Mill grams IV daily plus Rocephin 1 g IV daily plus Proventil HFA: 90 my grams per spray: 2 puffs every 6 hours. Coded 19 isolation precautions. Blood culture ?2 pending Borderline hypercalcemia. Will monitor calcium levels intermittently with CMP. IV normal saline 75 ML's per hour Acute on chronic kidney disease. Highly variable baseline creatinine. Will monitor creatinine intermittently. IV normal saline 75 ML's per hour Hyperkalemia. Will monitor potassium levels intermittently and correct as necessary Dementia Constipation Diverticulosis COPD. Proventil HFA: 90 my grams per spray: 2 puffs every 6 hours around the clock Coronary artery disease, status post [place], status post stent. Plavix 9 5 Mill grams by mouth daily plus Lipitor 40 Mill cans by mouth daily at bedtime plus metoprolol 25 Mill grams by mouth twice a day Hyperlipidemia. Lipitor 40 Mill grams by mouth daily at bedtime Hypertension. Metoprolol 25 Mill grams by mouth twice a day History of SVT. Telemetry monitoring Right Orchomegaly.. Outpatient ultrasound to be scheduled with his primary care physician QIANA shahid. Heparin 5000 units subcutaneous leak every 12 hours Attestations Medical Necessity Statement*: Hospitalizations medically necessary as witnessed by this H&P. Anticipated hospitalization greater than 48 hours Coding Level of Care Code Acute Vice President for Rubén Hanna Diagnoses Acute respiratory failure with hypoxemia J96.01
--- NOTE | 2021-10-23 01:01 | PC.NURSE ---
0045 Pt very NEWHALEN making it very difficult to communicate to answer admission questions. When asked a questions he gives a reply of something completely off subject. Seems to be Alert and oriented from the content of his conversation. Attempt to place on telemetry but pt refuses.
--- NOTE | 2021-10-23 01:07 | PC.NURSE ---
0048 Unable to answer immunization questions
[2021-10-23 01:20] LABS: Troponin(5th) Baseline 60 ng/L (0-15)
[2021-10-23 01:22] LABS: Calcium 7.7 mg/dL (8.5-10.5)
[2021-10-23] MEDS: sodium chloride 0.9% 1,000 ML 75 ML IV (01:26)
[2021-10-23] MEDS: sodium polystyrene sulfonate 15 gm/60 mL Btl PO (01:27)
[2021-10-23] MEDS: heparin 5,000 unit/mL INJ 1 mL 5000 UNIT SUBCUT (01:27)
[2021-10-23] MEDS: cefTRIAXone 1,000 MG in sodium chloride 0.9% (plus) 50 ML 100 MG IV (01:27)
[2021-10-23] MEDS: metoprolol tartrate 25 mg Tablet PO ×2 (01:27→14:44)
[2021-10-23 01:29] LABS: Parathyroid Hormone 297.6 pg/mL (15-65)
--- NOTE | 2021-10-23 02:19 | ECG_ITS ---
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 Measurements Intervals [place] Rate: 93 P: 67 ND: 135 QRS: 77 QRSD: 81 T: 77 QT: 358 QTc: 446 Interpretive Statements SINUS RHYTHM Compared to ECG 10/23/2021 00:30:03 No significant changes Electronically Signed On 10-24-2021 9:04:28 BARREL MAKER by Osiris Mcclelland M.D. [id number]
[2021-10-23 03:01] LABS: Basophils % 0.1 %; Hematocrit 32.9 % (42.0-52.0); Hemoglobin 10.3 g/dL (11.7-16.6); Lymphocytes # 0.4 10^3/uL (0.8-4.8); Lymphocytes % 3.3 %; Mean Corpuscular HGB Conc 31.3 g/dL (30.0-36.0); Mean Corpuscular Hemoglobin 29.2 pg (28.0-34.0); Mean Corpuscular Volume 93.2 fl (80-94); Mean Platelet Volume 11.5 fL (7.4-10.4); Monocytes # 0.8 10^3/uL (0.2-0.9); Monocytes % 6.4 %; Nucleated Red Blood Cells % 0 %; Platelet Count 157 10^3/cmm (130-400); Red Blood Count 3.53 10^6/uL (4.1-5.3); Red Cell Distribution Width 17.4 % (12.1-15.1); White Blood Count 12.8 10^3/uL (4.0-10.0)
[2021-10-23] MEDS: albuterol 8 gm MDI 2 PUFF INHALATION ×3 (03:11→15:03)
[2021-10-23 03:18] LABS: Troponin 5 2HR 61.25 ng/L (0-15)
[2021-10-23 03:21] LABS: Troponin 5 2HR Delta 1.25 ABS# (0-10)
[2021-10-23 03:25] LABS: Alanine Aminotransferase 9 U/L (0-41); Albumin Level 3.2 g/dL (3.5-5.2); Alkaline Phosphatase 40 IU/L (40-130); Anion Gap 18.9 (5-19); Aspartate Amino Transferase 18 U/L (0-40); Carbon Dioxide 18 mmol/L (22-29); Chloride 108 mmol/L (98-107); Globulin 2.2 g/dL (1.3-4.6); Glucose 100 mg/dL (65-115); Magnesium 1.5 mg/dL (1.7-2.3); Osmolality Calculated 314 mOsm/kg (285-295); Phosphorus 2.9 mg/dL (2.5-4.5); Potassium 4.9 mmol/L (3.5-5.1); Sodium 140 mmol/L (136-145); Total Bilirubin 0.2 mg/dL (0.15-1.2); Total Protein 5.4 g/dL (6.6-8.7)
[2021-10-23 03:26] LABS: Blood Urea Nitrogen 81 mg/dL (8-23)
--- NOTE | 2021-10-23 06:19 | ECG_ITS ---
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 Measurements Intervals [place] Rate: 121 P: 83 AK: 129 QRS: 90 QRSD: 83 T: 77 QT: 302 QTc: 430 Interpretive Statements SINUS TACHYCARDIA Compared to ECG 10/23/2021 03:31:48 Sinus rhythm no longer present Electronically Signed On 10-24-2021 9:02:44 CLEANER AND POLISHER by Osiris Mcclelland M.D. [id number]
[2021-10-23 06:28] LABS: Blood Urine 3+ (Negative); Glucose Urine UA Norm (Normal); Ketones Urine Negative (Negative); Protein Urine Neg (Negative); Specific Gravity, Urine 1.015 (1.005-1.030); Urine Appearance Clear (CLEAR); Urine Color Straw (Yellow); pH Urine 5 (5-7)
[2021-10-23 06:29] LABS: Add Urine Culture? No; Amorphous Sediment Urine TRACE /hpf; Bacteria Urine TRACE /hpf; Bilirubin Urine Neg (Negative); Leukocyte Esterase Urine Negative (Negative); Nitrate Urine Negative (Negative); RBC Urine 0-4 /hpf (0-2); Squamous Epithelial Cell Urine 0-4 /hpf (0-5); Urobilinogen Urine Norm (Negative); WBC Urine 0-4 /hpf (0-5)
[2021-10-23 06:40] LABS: Glucose Point of Care 100 mg/dL (70-110)
[2021-10-23 07:29] LABS: Troponin 5 6HR 56.33 ng/L (0-15)
[2021-10-23 07:42] LABS: Troponin 5 6HR Delta -3.67 ng/L (0-12)
--- NOTE | 2021-10-23 08:53 | PC.PHAR ---
PT UNABLE TO VERIFY MEDICATIONS- VERIFIED USING DISCHARGE PACKET FROM 10/22/21 FROM [facility].
--- NOTE | 2021-10-23 09:04 | USCV_ITS ---
Jimenez Green Age: 86 Gender: M : 1935 Exam Date: 10/23/2021 13:22 Ordering Phys: Joshua Bernard MD Technologist: MARIANGEL Exam Location: [facility] [place] Indication: sob, eval for dvt HISTORY: SOB PROCEDURES: Venous duplex imaging was performed in bilateral lower extremities. The following venous structures were evaluated: common femoral vein, profunda vein, proximal portion of the greater saphenous vein, superficial femoral vein, and the popliteal vein. In addition, the posterior tibial and peroneal trunk were evaluated. Serial compression, augmentation maneuvers, and spectral Doppler flow evaluation were performed. FINDINGS: No evidence of DVT seen in any vessel visualized at this time. CONCLUSIONS No evidence of right lower extremity DVT. No evidence of left lower extremity DVT. Jerardo Harris MD (Electronically Signed) Final Date: 23 October 2021 17:20 S
--- NOTE | 2021-10-23 09:09 | USCV_ITS ---
GreenJimenez Age: 86 Gender: M : 1935 Exam Date: 10/23/2021 13:31 Ordering Phys: Joshua Bernard MD Technologist: MARIANGEL Exam Location: [facility] [place] Indication: sob BP: 131 / 81 HR: 120 Rhythm: Sinus Technical Quality: Very technically difficult study MEASUREMENTS (Male / Female) Normal Values 2D ECHO LV Ejection Fraction MOD 2C 52.6 % LV Ejection Fraction 2C AL 50.4 % DOPPLER Right Atrial Pressure 3.0 mmHg FINDINGS Left Ventricle Normal left ventricular size and systolic function. Left ventricle systolic function grossly estimated at 55-60 %. This study is inadequate for estimation of regional wall motion abnormality. Right Ventricle Right ventricle not well visualized. Probably normal right ventricle size and systolic function. Right Atrium Right atrium not well visualized. Left Atrium Left atrium not well visualized. Mitral Valve Mitral valve not well visualized. Aortic Valve Aortic valve not well visualized. Tricuspid Valve Tricuspid valve not well visualized. Pulmonic Valve Pulmonic valve not well visualized. Pericardium No pericardial effusion. Aorta Aorta not well visualized. Normal-sized inferior vena cava. CONCLUSIONS 1. This is a technically very difficult study. Interpretation limited by tachycardia. 2. Normal left ventricular size and systolic function. Left ventricle systolic function grossly estimated at 55-60 %. This study is inadequate for estimation of regional wall motion abnormality. 3. Probably normal right ventricle size and systolic function. 4. Direct comparison to previous study dated 07/11/2021 is not possible given difficult study. Osiris Mcclelland MD (Electronically Signed) Final Date: 23 October 2021 17:45 S
[2021-10-23] MEDS: azithromycin 500 MG in sodium chloride 0.9% 250 ML 250 MG IV (11:16)
[2021-10-23] MEDS: clopidogrel 75 mg Tablet PO (11:16)
--- NOTE | 2021-10-23 11:28 | ECG_ITS ---
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 Measurements Intervals [place] Rate: 122 P: 89 VA: 119 QRS: 90 QRSD: 85 T: 79 QT: 296 QTc: 422 Interpretive Statements SINUS TACHYCARDIA WITH SHORT VA INTERVAL ABNORMAL RHYTHM ECG WARNING: DATA QUALITY MAY AFFECT INTERPRETATION Compared to ECG 10/23/2021 06:15:54 Short VA interval now present Electronically Signed On 10-24-2021 8:33:51 TEACHER EMOTIONALLY IMPAIRED by Osiris Mcclelland M.D. [id number]
--- NOTE | 2021-10-23 12:43 | P.PN_ITS ---
Subjective Subjective: Patient was seen this morning, upon entering the room, his oxygen was taken off by patient, on the side of the bed, he was complaining of shortness of breath, I placed oxygen back on him, he was feeling better, he was recently discharged from the hospital yesterday, currently on 3 L, he tells me t hat as soon as he got home he started to feel more short of breath, no chest pain, no hemoptysis, he is confused this morning, alert to person, to place, not to time, very hard of hearing Vitals/I&O/Wt Last Vital Signs Temp 98.6 F 10/23/21 08:00 Pulse 130 H 10/23/21 08:38 Resp 26 H 10/23/21 08:38 BP 141/86 10/23/21 08:00 Pulse Ox 96 10/23/21 08:38 10/22/21 10/23/21 10/23/21 22:59 06:59 14:59 Intake Total 1000 / 1000 50 / 50 Balance 1000 / 1000 50 / 50 Weight last 48 hrs Weight 59.449 kg Weight 64.637 kg Weight 63.503 kg Physical Exam Const: COMMON NORMALS: no acute distress ORIENTATION/CONSCIOUSNESS: Yes awake, Yes oriented to person, Yes oriented to place and Yes confused; not oriented to time Resp: COMMON NORMALS: normal respiratory effort, No retractions and No use of accessory muscles AUSCULTATION: diminished lung sounds diffuse Cardio: COMMON NORMALS: regular rate, regular rhythm, S1 normal heart sound present and S2 normal heart sound present RATE: regular rate RHYTHM: regular rhythm HEART SOUNDS: S1 normal heart sound present and S2 normal heart sound present GI: COMMON NORMALS: Normal to inspection, nondistended, normoactive bowel sounds present, Soft to palpation, non-tender and No hepatosplenomegaly present PALPATION: Yes Soft to palpation and Yes No hepatosplenomegaly present Extremity: COMMON NORMALS: no pedal edema Neuro: SENSORIUM/ORIENTATION: Yes oriented to person, Yes oriented to place and No oriented to time Data : 10/23/21 02:45 10/23/21 02:45 Micro: Microbiology 10/22/21 21:35 Blood Culture - Preliminary Blood SPECIMEN COLLECTED 10/22/21 21:30 Blood Culture - Preliminary Blood SPECIMEN COLLECTED A&P Assessment and plan (1) Acute respiratory failure with hypoxemia: Status: Acute (2) COVID-19: Status: Acute (3) Acute kidney injury superimposed on CKD: Status: Acute (4) Anemia: Status: Acute (5) Lower gastrointestinal hemorrhage: Status: Acute Plan Acute hypoxia, shortness of breath secondary to COVID-19, fluid overload, pneumonia. Plan -Continue COVID isolation -Continue Rocephin -Continue azithromycin -Sputum cultures, blood cultures, urine bacterial antigens -Budesonide -Ipratropium -Incentive spirometer, flutter valve -1 dose Lasix -Does have a history of COVID-19, history of COVID-19 hypercoagulability certainly is of concern, D-dimer 0.8, cannot do a CT angiogram given his creati nine, VQ scan given his COVID-19 positivity, for now we will start him on a heparin drip, monitor hemoglobin closely, monitor for bloody or black stools, will order venous ultrasound, cardiac echo Borderline hypocalcemia. Will monitor calcium levels intermittently with CMP. History of GI bleed, history of nosebleed, continue Plavix, heparin drip as above, monitor hemoglobin closely, monitor for bloody black stools, Hemoccult stool, Acute on chronic kidney disease. Highly variable baseline creatinine. Will monitor creatinine intermittently. Continue to monitor Hyperkalemia. Will monitor potassium levels intermittently and correct as necessary Dementia Constipation Diverticulosis COPD. Proventil HFA: 90 my grams per spray: 2 puffs every 6 hours around the clock Coronary artery disease, status post [place], status post stent. Plavix 9 5 Mill grams by mouth daily plus Lipitor 40 Mill cans by mouth daily at bedtime plus metoprolol 25 Mill grams by mouth twice a day Hyperlipidemia. Lipitor 40 Mill grams by mouth daily at bedtime Hypertension. Metoprolol 25 Mill grams by mouth twice a day History of SVT. Telemetry monitoring Right Orchomegaly.. 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
--- NOTE | 2021-10-23 13:28 | ECG_ITS ---
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 Measurements Intervals [place] Rate: 120 P: 86 MO: 96 QRS: 87 QRSD: 94 T: 75 QT: 301 QTc: 426 Interpretive Statements SINUS TACHYCARDIA WITH SHORT MO INTERVAL ABNORMAL RHYTHM ECG Compared to ECG 10/23/2021 11:58:49 No significant changes Electronically Signed On 10-24-2021 8:59:12 CORRECTIONS SPECIALIST by Osiris Mcclelland M.D. [id number]
[2021-10-23 14:36] LABS: Troponin(5th) Baseline 84 ng/L (0-15)
[2021-10-23 14:37] LABS: Adenovirus Not Detected (NOT DETECT); Chlamydia Pneumoniae Not Detected (NOT DETECT); Coronavirus 229E,HKU1,NL63,OC4 Not Detected (NOT DETECT); Human Metapneumovirus Not Detected (NOT DETECT); Human Rhinovirus/Enterovirus Not Detected (NOT DETECT); Influenza A Not Detected (NOT DETECT); Influenza A H1 Not Detected (NOT DETECT); Influenza A H1-2009 Not Detected (NOT DETECT); Influenza A H3 Not Detected (NOT DETECT); Influenza B Not Detected (NOT DETECT); Mycoplasma Pneumoniae Not Detected (NOT DETECT); Parainfluenza Virus Type 1 Not Detected (NOT DETECT); Parainfluenza Virus Type 2 Not Detected (NOT DETECT); Parainfluenza Virus Type 3 Not Detected (NOT DETECT); Parainfluenza Virus Type 4 Not Detected (NOT DETECT); Respiratory Syncytial Virus A Not Detected (NOT DETECT); Respiratory Syncytial Virus B Not Detected (NOT DETECT); SARS-COV-2 Detected (NOT DETECT)
[2021-10-23 14:39] LABS: Results from GEN
[2021-10-23] MEDS: dexamethasone 10 mg/mL INJ 6 MG IVP (14:41)
[2021-10-23] MEDS: FUROsemide 10 mg/mL SDV 4mL 40 MG IVP (14:42)
[2021-10-23] MEDS: magnesium sulfate premix 4 GM/100 ML PREMIX IV (15:10)
[2021-10-23] MEDS: ipratropium-albuterol 3 mL Neb INHALATION ×2 (16:29→21:15)
[2021-10-23 17:02] LABS: Bacillus cereus group Not Detected (NOT DETECT); Bacillus subtillis group Not Detected (NOT DETECT); Corynebacterium Not Detected (NOT DETECT); Cutibacterium acnes (P.acnes) Not Detected (NOT DETECT); Enterococcus Not Detected (NOT DETECT); Enterococcus faecalis Not Detected (NOT DETECT); Enterococcus faecium Not Detected (NOT DETECT); Lactobacillus species Not Detected (NOT DETECT); Listeria Not Detected (NOT DETECT); Listeria monocytogenes Not Detected (NOT DETECT); Micrococcus Not Detected (NOT DETECT); Pan Candida Not Detected (NOT DETECT); Pan Gram-Negative Not Detected (NOT DETECT); Staphylococcus epidermidis Not Detected (NOT DETECT); Staphylococcus lugdunensis Not Detected (NOT DETECT); Staphylococcus species Detected (NOT DETECT); Streptococcus agalactiae Not Detected (NOT DETECT); Streptococcus anginosus group Not Detected (NOT DETECT); Streptococcus pneumoniae Not Detected (NOT DETECT); Streptococcus pyogenes Not Detected (NOT DETECT); Streptococcus species Not Detected (NOT DETECT); mecA Not Detected (NOT DETECT); mecC Not Detected (NOT DETECT)
[2021-10-23 17:11] LABS: Troponin 5 2HR 84.21 ng/L (0-15)
[2021-10-23 17:14] LABS: Troponin 5 2HR Delta 0.21 ABS# (0-10)
--- NOTE | 2021-10-23 17:28 | ECG_ITS ---
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 Measurements Intervals [place] Rate: 92 P: 77 WI: 135 QRS: 78 QRSD: 97 T: 74 QT: 368 QTc: 456 Interpretive Statements SINUS RHYTHM Compared to ECG 10/23/2021 13:44:36 Sinus tachycardia no longer present Short WI interval no longer present Electronically Signed On 10-24-2021 8:53:59 CARTON MAKING MACHINE OPERATOR by Osiris Mcclelland M.D. [email or web address] [id number]
[2021-10-23] MEDS: heparin 5,000 unit/mL INJ 1 mL IV (17:36)
[2021-10-23] MEDS: heparin drip 25,000 UNIT/500 ML PREMIX 17 UNIT IV (17:39)
[2021-10-23] MEDS: vancomycin 750 MG in sodium chloride 0.9% 250 ML 250 MG IV (18:20)
[2021-10-23] MEDS: piperacillin-tazobactam 3.375 GM in sodium chloride 0.9% (plus) 50 ML IV (20:43)
[2021-10-23] MEDS: atorvastatin 40 mg Tablet 80 MG PO (20:43)
[2021-10-23 20:49] LABS: Troponin 5 6HR 72.61 ng/L (0-15)
[2021-10-23 20:56] LABS: Glucose Point of Care 116 mg/dL (70-110)
[2021-10-23] MEDS: budesonide 0.5 mg/2 mL Neb INHALATION (21:14)
[2021-10-24] VITALS (18 sets, daily range): BP systolic 112–131; BP diastolic 64–80; PULSE 66–99; RESP 15–20; TEMP 36.4–37; O2SAT 92–97
[2021-10-24] MEDS: metoprolol tartrate 25 mg Tablet PO ×2 (00:07→11:39)
[2021-10-24 00:36] LABS: Partial Thromboplastin Time 135.4 SECONDS (23.9-36.7)
[2021-10-24] MEDS: ipratropium-albuterol 3 mL Neb INHALATION ×5 (04:40→22:28)
[2021-10-24 06:27] LABS: Glucose Point of Care 110 mg/dL (70-110)
[2021-10-24 08:14] LABS: Basophils % 0.2 %; Hematocrit 34.5 % (42.0-52.0); Hemoglobin 11.1 g/dL (11.7-16.6); Lymphocytes # 0.4 10^3/uL (0.8-4.8); Lymphocytes % 3.5 %; Mean Corpuscular HGB Conc 32.2 g/dL (30.0-36.0); Mean Corpuscular Hemoglobin 29.8 pg (28.0-34.0); Mean Corpuscular Volume 92.5 fl (80-94); Mean Platelet Volume 11.7 fL (7.4-10.4); Monocytes # 0.3 10^3/uL (0.2-0.9); Monocytes % 3.2 %; Neutrophils # 9.59 10^3/uL (1.8-7.7); Neutrophils % 91.9 %; Nucleated Red Blood Cells % 0.2 %; Platelet Count 122 10^3/cmm (130-400); Red Blood Count 3.73 10^6/uL (4.1-5.3); Red Cell Distribution Width 17.8 % (12.1-15.1); White Blood Count 10.4 10^3/uL (4.0-10.0)
[2021-10-24] MEDS: budesonide 0.5 mg/2 mL Neb INHALATION ×2 (08:31→22:28)
[2021-10-24 08:32] LABS: Partial Thromboplastin Time 110.7 SECONDS (23.9-36.7)
[2021-10-24] MEDS: piperacillin-tazobactam 3.375 GM in sodium chloride 0.9% (plus) 50 ML IV ×2 (08:48→18:31)
[2021-10-24] MEDS: clopidogrel 75 mg Tablet PO (08:48)
[2021-10-24] MEDS: cholecalciferol (vitamin D3) 1,000 unit Tablet 1000 UNIT PO (08:48)
[2021-10-24 11:04] LABS: NT Pro B Type Natriuretic Pept 2394 pg/mL (0-450); Procalcitonin 4.94 ng/mL (0-0.5)
[2021-10-24 11:15] LABS: C Reactive Protein 143.9 mg/L (0.0-4.9)
[2021-10-24] MEDS: acetaminophen 325 mg Tablet 650 MG PO ×2 (11:39→18:27)
[2021-10-24] MEDS: dexamethasone 10 mg/mL INJ 6 MG IVP (11:39)
[2021-10-24 11:59] LABS: Glucose Point of Care 142 mg/dL (70-110)
[2021-10-24 12:39] LABS: Alanine Aminotransferase 12 U/L (0-41); Albumin Level 2.8 g/dL (3.5-5.2); Alkaline Phosphatase 39 IU/L (40-130); Anion Gap 21.7 (5-19); Aspartate Amino Transferase 23 U/L (0-40); Blood Urea Nitrogen 79 mg/dL (8-23); Calcium 7.5 mg/dL (8.5-10.5); Carbon Dioxide 17 mmol/L (22-29); Chloride 106 mmol/L (98-107); Globulin 3.2 g/dL (1.3-4.6); Glucose 132 mg/dL (65-115); Magnesium 2.7 mg/dL (1.7-2.3); Osmolality Calculated 316 mOsm/kg (285-295); Phosphorus 3.9 mg/dL (2.5-4.5); Potassium 4.7 mmol/L (3.5-5.1); Sodium 140 mmol/L (136-145); Total Bilirubin 0.3 mg/dL (0.15-1.2)
--- NOTE | 2021-10-24 13:21 | PM.PN ---
Vitals/I&O/Wt Last Vital Signs Temp 97.7 F 10/24/21 12:01 Pulse 72 10/24/21 12:01 Resp 15 10/24/21 12:01 BP 115/72 10/24/21 12:01 Pulse Ox 96 10/24/21 12:01 10/23/21 10/24/21 10/24/21 22:59 06:59 14:59 Intake Total 1600 / 1650 210 / 1860 500 / 500 Output Total 500 / 500 600 / 1100 580 / 580 Balance 1100 / 1150 -390 / 760 -80 / -80 Weight last 48 hrs Weight 59.239 kg Weight 59.449 kg Weight 64.637 kg Weight 63.503 kg Physical Exam Const: COMMON NORMALS: no acute distress and patient oriented x3 Resp: COMMON NORMALS: normal respiratory effort, No retractions, No use of accessory muscles and clear to auscultation bilaterally AUSCULTATION: clear to auscultation bilaterally Cardio: COMMON NORMALS: regular rate, regular rhythm, S1 normal heart sound present and S2 normal heart sound present RATE: regular rate RHYTHM: regular rhythm HEART SOUNDS: S1 normal heart sound present and S2 normal heart sound present GI: COMMON NORMALS: Normal to inspection, nondistended, normoactive bowel sounds present, Soft to palpation, non-tender and No hepatosplenomegaly present PALPATION: Yes Soft to palpation and Yes No hepatosplenomegaly present Extremity: COMMON NORMALS: no pedal edema Neuro: COMMON NORMALS: patient oriented x3 Psych: COMMON NORMALS: mental status grossly normal Data : 10/24/21 07:45 10/24/21 12:05 Micro: Microbiology 10/22/21 21:30 Blood Culture - Preliminary Blood NEGATIVE TO DATE 10/22/21 21:35 Blood Culture - Preliminary Blood Staphylococcus species A&P Assessment and plan (1) Acute respiratory failure with hypoxemia: Status: Acute (2) COVID-19: Status: Acute (3) Acute kidney injury superimposed on CKD: Status: Acute (4) Anemia: Status: Acute (5) Lower gastrointestinal hemorrhage: Status: Acute Plan Acute hypoxia, shortness of breath secondary to COVID-19, fluid overload, pneumonia. Plan -Continue COVID isolation -1 out of 4 bottles positive for staphylococcal species -Antibiotic coverage has been broadened to vancomycin and Zosyn -Sputum cultures, blood cultures, urine bacterial antigens -Budesonide -Ipratropium -Incentive spirometer, flutter valve - daily dose Lasix, BNP 2394, continue to monitor -Does have a history of COVID-19, history of COVID-19 hypercoagulability certainly is of concern, D-dimer 0.8, cannot do a CT angiogram given his creatinine, VQ scan given his COVID-19 positivity, hemoglobin has remained stable on heparin drip monitor hemoglobin closely, monitor for bloody or black stools, venous ultrasound negative for DVT, start Eliquis 2.5 mg twice daily cardiac echocardiogram 1.? This is a technically very difficult study.? Interpretation ?limited by tachycardia. ?2.? Normal left ventricular size and systolic function.? Left ?ventricle systolic function grossly estimated at 55-60 %.? This ?study is inadequate for estimation of regional wall motion ?abnormality. ?3.? Probably normal right ventricle size and systolic function. ?4.? Direct comparison to previous study dated 07/11/2021 is not ?possible given difficult study. Borderline hypocalcemia. Elevated PTH, low calcium level, start vitamin D will monitor calcium levels intermittently with CMP. History of GI bleed secondary to diverticulosis history of nosebleed, continue Plavix, Eliquis 2.5 mg twice daily, monitor hemoglobin closely, monitor for bloody black stools, Hemoccult stool, Acute on chronic kidney disease. Highly variable baseline creatinine. Will monitor creatinine intermittently. Continue to monitor Hyperkalemia. Will monitor potassium levels intermittently and correct as necessary Dementia Constipation Diverticulosis COPD. Proventil HFA: 90 my grams per spray: 2 puffs every 6 hours around the clock Coronary artery disease, status post [place], status post stent. Plavix 9 5 Mill grams by mouth daily plus Lipitor 40 Mill cans by mouth daily at bedtime plus metoprolol 25 Mill grams by mouth twice a day Hyperlipidemia. Lipitor 40 Mill grams by mouth daily at bedtime Hypertension. Metoprolol 25 Mill grams by mouth twice a day History of SVT. Telemetry monitoring Right Orchomegaly.. 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
[2021-10-24] MEDS: apixaban 5 mg Tablet 2.5 MG PO (14:41)
--- NOTE | 2021-10-24 16:39 | PC.NURSE ---
Patient vitals stable, oxygen at 3L. Patient urinating in urinal multiple times this shift, no bowel movement. Patient worked with PT and sat up to the chair for a few hours. Patient is very hard of hearing so it is very hard to communicate. Patient complained of pain in his L hip, tylenol given. Will continue to monitor and give report to night nurse.
[2021-10-24] MEDS: atorvastatin 40 mg Tablet 80 MG PO (20:22)
[2021-10-25] VITALS (10 sets, daily range): BP systolic 116–119; BP diastolic 72–76; PULSE 67–100; RESP 16–20; TEMP 36.7–37.2; O2SAT 91–96
[2021-10-25] MEDS: apixaban 5 mg Tablet 2.5 MG PO ×2 (00:35→11:57)
[2021-10-25] MEDS: metoprolol tartrate 25 mg Tablet PO ×2 (00:35→11:57)
[2021-10-25 06:12] LABS: Basophils % 0.1 %; Hematocrit 29.2 % (42.0-52.0); Hemoglobin 9.4 g/dL (11.7-16.6); Lymphocytes # 0.3 10^3/uL (0.8-4.8); Lymphocytes % 2.7 %; Mean Corpuscular HGB Conc 32.2 g/dL (30.0-36.0); Mean Corpuscular Hemoglobin 29.6 pg (28.0-34.0); Mean Corpuscular Volume 91.8 fl (80-94); Mean Platelet Volume 11.9 fL (7.4-10.4); Monocytes # 0.5 10^3/uL (0.2-0.9); Monocytes % 4.2 %; Neutrophils # 10.89 10^3/uL (1.8-7.7); Neutrophils % 91.8 %; Nucleated Red Blood Cells % 0.3 %; Platelet Count 180 10^3/cmm (130-400); Red Blood Count 3.18 10^6/uL (4.1-5.3); Red Cell Distribution Width 17.7 % (12.1-15.1); White Blood Count 11.9 10^3/uL (4.0-10.0)
[2021-10-25] MEDS: piperacillin-tazobactam 3.375 GM in sodium chloride 0.9% (plus) 50 ML IV ×2 (06:34→18:57)
[2021-10-25 06:52] LABS: Alanine Aminotransferase 13 U/L (0-41); Albumin Level 3.3 g/dL (3.5-5.2); Alkaline Phosphatase 41 IU/L (40-130); Anion Gap 19.6 (5-19); Aspartate Amino Transferase 20 U/L (0-40); Blood Urea Nitrogen 79 mg/dL (8-23); C Reactive Protein 70.9 mg/L (0.0-4.9); Calcium 6.7 mg/dL (8.5-10.5); Carbon Dioxide 18 mmol/L (22-29); Chloride 105 mmol/L (98-107); Globulin 2.3 g/dL (1.3-4.6); Glucose 114 mg/dL (65-115); Magnesium 2.4 mg/dL (1.7-2.3); Osmolality Calculated 311 mOsm/kg (285-295); Phosphorus 3.5 mg/dL (2.5-4.5); Potassium 4.6 mmol/L (3.5-5.1); Sodium 138 mmol/L (136-145); Total Bilirubin 0.4 mg/dL (0.15-1.2); Total Protein 5.6 g/dL (6.6-8.7)
[2021-10-25] MEDS: acetaminophen 325 mg Tablet 650 MG PO (08:44)
[2021-10-25] MEDS: cholecalciferol (vitamin D3) 1,000 unit Tablet 1000 UNIT PO (08:45)
[2021-10-25] MEDS: clopidogrel 75 mg Tablet PO (08:45)
[2021-10-25 10:48] LABS: NT Pro B Type Natriuretic Pept 888 pg/mL (0-450); Procalcitonin 5.05 ng/mL (0-0.5)
[2021-10-25] MEDS: ipratropium-albuterol 3 mL Neb INHALATION (11:58)
[2021-10-25] MEDS: dexamethasone 10 mg/mL INJ 6 MG IVP (11:58)
--- NOTE | 2021-10-25 14:00 | P.PN_ITS ---
Subjective Subjective: Patient was seen this morning, he continues to complain of generalized weakness, he tells me he is tired, he has no energy to walk, he feels short of breath, afebrile overnight, normotensive, his oxygen has been removed, his saturations are in the high 90s, Vitals/I&O/Wt Last Vital Signs Temp 98.1 F 10/25/21 12:00 Pulse 67 10/25/21 12:00 Resp 20 H 10/25/21 12:00 BP 119/76 10/25/21 12:00 Pulse Ox 94 10/25/21 12:00 10/24/21 10/25/21 10/25/21 22:59 06:59 14:59 Intake Total 170 / 720 290 / 290 Output Total 400 / 980 500 / 1480 100 / 100 Balance -230 / -260 -500 / -760 190 / 190 Weight last 48 hrs Weight 60.373 kg Weight 59.239 kg Physical Exam Const: COMMON NORMALS: no acute distress and patient oriented x3 Resp: COMMON NORMALS: normal respiratory effort, No retractions, No use of accessory muscles and clear to auscultation bilaterally AUSCULTATION: clear to auscultation bilaterally Cardio: COMMON NORMALS: regular rate, regular rhythm, S1 normal heart sound present and S2 normal heart sound present RATE: regular rate RHYTHM: regular rhythm HEART SOUNDS: S1 normal heart sound present and S2 normal heart sound present GI: COMMON NORMALS: Normal to inspection, nondistended, normoactive bowel so unds present, Soft to palpation, non-tender and No hepatosplenomegaly present PALPATION: Yes Soft to palpation and Yes No hepatosplenomegaly present Extremity: COMMON NORMALS: no pedal edema Neuro: COMMON NORMALS: patient oriented x3 Psych: COMMON NORMALS: mental status grossly normal Data : 10/25/21 05:30 10/25/21 05:30 Micro: Microbiology 10/25/21 10:37 Blood Culture - Preliminary Blood SPECIMEN COLLECTED 10/25/21 10:36 Blood Culture - Preliminary Blood SPECIMEN COLLECTED 10/24/21 09:00 Gram Stain - Final Sputum - Expectorated Sputum 10/24/21 09:00 Bacterial Antigens - Final Urine,Clean Catch 10/24/21 09:00 Legionella Urinary Antigen - Final Urine,Clean Catch 10/24/21 09:00 MRSA Culture - Final Nose A&P Assessment and plan (1) Acute respiratory failure with hypoxemia: Status: Acute (2) COVID-19: Status: Acute (3) Acute kidney injury superimposed on CKD: Status: Acute (4) Anemia: Status: Acute (5) Lower gastrointestinal hemorrhage: Status: Acute Plan Acute hypoxia, shortness of breath secondary to COVID-19, fluid overload, pneumonia. Plan -Continue COVID isolation -1 out of 4 bottles positive for staphylococcal species -Antibiotic coverage has been broadened to vancomycin and Zosyn -Sputum cultures, blood cultures, urine bacterial antigens -Budesonide -Ipratropium -Incentive spirometer, flutter valve - daily dose Lasix, BNP 2394, continue to monitor -Does have a history of COVID-19, history of COVID-19 hypercoagulability certainly is of concern, D-dimer 0.8, cannot do a CT angiogram given his creatinine, VQ scan given his COVID-19 positivity, hemoglobin has remained stable on heparin drip monitor hemoglobin closely, monitor for bloody or black stools, venous ultrasound negative for DVT, start Eliquis 2.5 mg twice daily cardiac echocardiogram 1.? This is a technically very difficult study.? Interpretation ?limited by tachycardia. ?2.? Normal left ventricular size and systolic function.? Left ?ventricle systolic function grossly estimated at 55-60 %.? This ?study is inadequate for estimation of regional wall motion ?abnormality. ?3.? Probably normal right ventricle size and systolic function. ?4.? Direct comparison to previous study dated 07/11/2021 is not ?possible given difficult study. Borderline hypocalcemia. Elevated PTH, low calcium level, start vitamin D will monitor calcium levels intermittently with CMP. History of GI bleed secondary to diverticulosis history of nosebleed, continue Plavix, Eliquis 2.5 mg twice daily, monitor hemoglobin closely, monitor for bloody black stools, Hemoccult stool, Acute on chronic kidney disease. Highly variable baseline creatinine. Will monitor creatinine intermittently. Continue to monitor Hyperkalemia. Will monitor potassium levels intermittently and correct as necessary Dementia Constipation Diverticulosis COPD. Proventil HFA: 90 my grams per spray: 2 puffs every 6 hours around the clock Coronary artery disease, status post [place], status post stent. Plavix 9 5 Mill grams by mouth daily plus Lipitor 40 Mill cans by mouth daily at bedtime plus metoprolol 25 Mill grams by mouth twice a day Hyperlipidemia. Lipitor 40 Mill grams by mouth daily at bedtime Hypertension. Metoprolol 25 Mill grams by mouth twice a day History of SVT. Telemetry monitoring Right Orchomegaly.. 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
--- NOTE | 2021-10-25 16:19 | PC.SOCIAL ---
IMM UPDATED IMM dated and initialed and copy given to family
--- NOTE | 2021-10-25 16:20 | PC.SOCIAL ---
IMM UPDATED IMM dated and initialed and copy given to family
[2021-10-25] MEDS: vancomycin 750 MG in sodium chloride 0.9% 250 ML 250 MG IV (17:32)
--- NOTE | 2021-10-25 17:41 | PC.NURSE ---
Patient vitals stable, patient now on room air, saturations in the low 90s. Patient has mentioned wanting to go home. Pain controlled with PRN medications. Patient has a productive cough. Will continue to monitor and give report to night nurse.
[2021-10-25] MEDS: atorvastatin 40 mg Tablet 80 MG PO (20:42)
[2021-10-26] VITALS (11 sets, daily range): BP systolic 106–146; BP diastolic 58–88; PULSE 80–124; RESP 13–25; TEMP 36.6–37.2; O2SAT 89–94; BMI 18.6
[2021-10-26] MEDS: metoprolol tartrate 25 mg Tablet PO ×2 (00:31→12:40)
[2021-10-26] MEDS: apixaban 5 mg Tablet 2.5 MG PO ×2 (00:31→12:42)
[2021-10-26 05:42] LABS: Basophils % 0.1 %; Hematocrit 29.1 % (42.0-52.0); Hemoglobin 9.2 g/dL (11.7-16.6); Lymphocytes # 0.4 10^3/uL (0.8-4.8); Mean Corpuscular HGB Conc 31.6 g/dL (30.0-36.0); Mean Corpuscular Hemoglobin 29.5 pg (28.0-34.0); Mean Corpuscular Volume 93.3 fl (80-94); Mean Platelet Volume 11.4 fL (7.4-10.4); Monocytes # 0.7 10^3/uL (0.2-0.9); Monocytes % 5.5 %; Neutrophils % 90.2 %; Nucleated Red Blood Cells % 0.2 %; Platelet Count 173 10^3/cmm (130-400); Red Blood Count 3.12 10^6/uL (4.1-5.3); Red Cell Distribution Width 17.9 % (12.1-15.1); White Blood Count 13.2 10^3/uL (4.0-10.0)
[2021-10-26 06:09] LABS: NT Pro B Type Natriuretic Pept 875 pg/mL (0-450); Procalcitonin 2.87 ng/mL (0-0.5)
[2021-10-26 06:20] LABS: Alanine Aminotransferase 15 U/L (0-41); Albumin Level 3.1 g/dL (3.5-5.2); Alkaline Phosphatase 33 IU/L (40-130); Aspartate Amino Transferase 20 U/L (0-40); Blood Urea Nitrogen 73 mg/dL (8-23); C Reactive Protein 31.5 mg/L (0.0-4.9); Calcium 6.8 mg/dL (8.5-10.5); Carbon Dioxide 20 mmol/L (22-29); Chloride 105 mmol/L (98-107); Globulin 2.6 g/dL (1.3-4.6); Glucose 82 mg/dL (65-115); Magnesium 2.3 mg/dL (1.7-2.3); Osmolality Calculated 309 mOsm/kg (285-295); Phosphorus 2.9 mg/dL (2.5-4.5); Sodium 139 mmol/L (136-145); Total Bilirubin 0.4 mg/dL (0.15-1.2); Total Protein 5.7 g/dL (6.6-8.7)
[2021-10-26] MEDS: piperacillin-tazobactam 3.375 GM in sodium chloride 0.9% (plus) 50 ML IV (06:30)
--- NOTE | 2021-10-26 06:58 | PC.NURSE ---
Bedside shift report given to Crys RN-unable to sign as she doesn't have a working pin at this time.
[2021-10-26] MEDS: clopidogrel 75 mg Tablet PO (08:06)
[2021-10-26] MEDS: cholecalciferol (vitamin D3) 1,000 unit Tablet 1000 UNIT PO (08:06)
--- NOTE | 2021-10-26 09:41 | XR_ITS ---
WS: [id number] PORTABLE CHEST HISTORY: sob COMPARISON: 10/22/2021 Linear focal areas of scarring or atelectasis at the lung bases. No pneumonia. Normal vasculature. No pleural effusion or pneumothorax. Cardiac size: Normal. Coronary artery stent. Mediastinum/Aorta: Mild atherosclerosis aorta. Osteopenia with mild degenerative changes at the glenohumeral joints. XR/XR chest 1V portable [id number] IMPRESSION: 1. No acute cardiopulmonary disease. No pneumonia. 2. Normal pulmonary vasculature.
--- NOTE | 2021-10-26 09:43 | ECG_ITS ---
[facility] Test Date: 2021-10-26 Pat Name: Jimenez Green Department: Room: 258 Gender: Male Roll Tender: : 1935 Requested By: Joshua Bernard Order Number: [id number] Samia MD: Osiris Mcclelland M.D. Measurements Intervals [place] Rate: 108 P: 83 MS: 126 QRS: 85 QRSD: 83 T: 70 QT: 322 QTc: 433 Interpretive Statements SINUS TACHYCARDIA ABNORMAL RHYTHM ECG Compared to ECG 10/23/2021 17:40:50 Sinus rhythm no longer present Electronically Signed On 10-26-2021 16:10:51 BEDSPREAD FOLDER by Osiris Mcclelland M.D. [id number]
[2021-10-26 10:53] LABS: Troponin T (5th) Once 45 ng/L (0-15)
--- NOTE | 2021-10-26 11:30 | P.DS_ITS ---
Discharge Providers Date of Admission: 10/22/21 22:34 Date of Discharge: October 26, 2021 Attending Provider at Admission: Ana Larios DO Attending Provider at Discharge: Joshua Bernard MD Primary Care Provider: Adama Olmedo MD Diagnoses at Discharge Discharge Diagnosis (1) Acute respiratory failure with hypoxemia: Status: Acute (2) COVID-19: Status: Acute (3) Acute kidney injury superimposed on CKD: Status: Acute (4) Anemia: Status: Acute (5) Lower gastrointestinal hemorrhage: Status: Acute Reason for Visit Reason for Visit: SOB Hospital Course Hospital Course This is a 86-year-old male with a past medical history of CAD status post PCI stent, history of epistaxis on Plavix, hypertension, dyslipidemia, dementia, recent hospitalization for KEEGAN on CKD with COVID-19, with uremic encephalopathy, and an enlarged right testicle possibly hydrocele, who is very hard of hearing Who presents [facility] for acute hypoxia secondary to fluid overload, COVID-19, pneumonia. Patient was discharged from [facility] yesterday for COVID-19 pneumonia, acute uremic encephalopathy, KEEGAN. Patient was admitted for acute hypoxia, generalized weakness secondary to COVID- 19, and concerns for secondary bacterial pneumonia. Was managed with broad- spectrum antibiotic therapy, Decadron therapy, did not qualify for remdesivir given his creatinine clearance. Given his COVID-19, history of COVID-19 hypercoagulability there was concern for pulmonary emboli, D-dimer 0.8, cannot do a CT angiogram given his creatinine, VQ scan given his COVID-19 positivity, he was managed on a heparin drip, hemoglobin has remained stable on heparin drip, monitor hemoglobin closely, monitor for bloody or black stools none during his hospitalization, venous ultrasound negative for DVT, transition to Eliquis, did well clinically, discharged on Eliquis 2.5 mg twice daily. Patient overall clinically did well, discharged on 2 L, inhaler therapy, doxycycline, discharged on Eliquis 2.5 mg twice daily. Patient is to follow-up with pulmonary service as outpatient Of note 2 out of 4 patient's blood cultures were positive for coagulase-negative staph, his echocardiogram did not show any gross valvular abnormalities, he remained afebrile, repeat blood cultures so far have been unremarkable, likely contamination. In terms of his hypercoagulability prophylaxis for COVID-19, and concerns during his inpatient stay for possible pulmonary emboli, discharged on Eliquis 2.5 mg twice daily. Instructions to remain mobile. Follow-up with primary care provider in 1 week for recheck hemoglobin. Patient was advised to monitor for bloody or black stools or lightheadedness if so go to the emergency room. During his hospitalization patient did develop anemia, hemoglobin 9.2, no complaints of bloody or black stools, no hemodynamic compromise, he does have a history of GI bleed secondary to diverticulosis for which she had a colonoscopy and EGD and history of nosebleed. I have discharged him on Protonix, Carafate. If he were to have bloody or black stools or lightheadedness or nosebleeds go to the emergency room Physical Exam Const: COMMON NORMALS: no acute distress and patient oriented x3 Resp: COMMON NORMALS: normal respiratory effort, No retractions, No use of accessory muscles and clear to auscultation bilaterally AUSCULTATION: clear to auscultation bilaterally Cardio: COMMON NORMALS: regular rate, regular rhythm, S1 normal heart sound present and S2 normal heart sound present RATE: regular rate RHYTHM: regular rhythm HEART SOUNDS: S1 normal heart sound present and S2 normal heart sound present GI: COMMON NORMALS: Normal to inspection, nondistended, normoactive bowel sounds present, Soft to palpation, non-tender and No hepatosplenomegaly present PALPATION: Yes Soft to palpation and Yes No hepatosplenomegaly present Extremity: COMMON NORMALS: no pedal edema Neuro: COMMON NORMALS: patient oriented x3 Psych: COMMON NORMALS: mental status grossly normal Discharge Data Studies Completed and Pending Completed Studies During Hospitalization Category Date Time Status CT chest wo con [id number] Urgent Cat Scan 10/22/21 23:33 Completed XR chest 1V portable [id number] Stat Exams 10/22/21 20:51 Completed XR chest 1V portable [id number] Stat Exams 10/26/21 09:41 [place] [id number] Routine Ultrasound 10/23/21 09:04 Completed CV. echo limited [id number] Routine Ultrasound 10/23/21 09:09 Completed Pending at discharge Category Date Time Status Blood Culture Stat Lab 10/22/21 21:35 Results Blood Culture Stat Lab 10/25/21 10:37 Results Platelet Count Q2D Lab 10/27/21 04:00 Ordered Sputum Culture and Gram Stain Stat Lab 10/23/21 09:11 Results Vancomycin Trough Timed Lab 10/27/21 17:00 Ordered Radiology Impressions Chest CT 10/22/21 23:33 IMPRESSION: 1. Interval appearance of mild posterior bibasilar atelectasis and/or pneumonia. 2. Stable severe calcified coronary artery disease. 3. Probable proximal LAD endovascular stent. COMMENTS: Consistent with the [employer] [employer]'s Incidental Findings Committee white paper (J Am Chacho Radiol 2018): Any incidental renal lesion less than 1 cm or classified as too small to characterize, or any incidental cystic renal lesion characterized as simple-appearing, is likely benign. No follow-up imaging is recommended for these lesions per consensus recommendations based on imaging criteria. Chest X-Ray 10/26/21 09:41 IMPRESSION: 1. No acute cardiopulmonary disease. No pneumonia. 2. Normal pulmonary vasculature. Laboratory Results WBC 13.2 10^3/uL (4.0-10.0) H 10/26/21 05:30 RBC 3.12 10^6/uL (4.1-5.3) L 10/26/21 05:30 Hgb 9.2 g/dL (11.7-16.6) L 10/26/21 05:30 Hct 29.1 % (42.0-52.0) L 10/26/21 05:30 MCV 93.3 fl (80-94) 10/26/21 05:30 MCH 29.5 pg (28.0-34.0) 10/26/21 05:30 MCHC 31.6 g/dL (30.0-36.0) 10/26/21 05:30 RDW 17.9 % (12.1-15.1) H 10/26/21 05:30 Plt Count 173 10^3/cmm (130-400) 10/26/21 05:30 MPV 11.4 fL (7.4-10.4) H 10/26/21 05:30 Neut % (Auto) 90.2 % 10/26/21 05:30 Lymph % (Auto) 3.0 % 10/26/21 05:30 Roberts % (Auto) 5.5 % 10/26/21 05:30 Eos % (Auto) 0.0 % 10/26/21 05:30 Baso % (Auto) 0.1 % 10/26/21 05:30 Neut # (Auto) 11.90 10^3/uL (1.8-7.7) H 10/26/21 05:30 Lymph # (Auto) 0.4 10^3/uL (0.8-4.8) L 10/26/21 05:30 Roberts # (Auto) 0.7 10^3/uL (0.2-0.9) 10/26/21 05:30 Eos # (Auto) 0.0 10^3/uL (0.0-0.8) 10/26/21 05:30 Baso # (Auto) 0.0 10^3/uL (0.0-0.1) 10/26/21 05:30 Nucleated RBC % (auto) 0.2 % 10/26/21 05:30 Nucleated RBCs # 0.0 /100WBC 10/26/21 05:30 APTT 110.7 SECONDS (23.9-36.7) H 10/24/21 07:45 D-Dimer 0.80 ug/mIFEU (0-0.59) H 10/22/21 21:30 Specimen Type Arterial 10/22/21 21:30 Sample Site Radial, right 10/22/21 21:30 ABG pH 7.42 (7.35-7.45) 10/22/21 21:30 ABG pCO2 30.0 mmHg (35-45) L 10/22/21 21:30 ABG pO2 80.4 mmHg (80.0-100.0) 10/22/21 21:30 ABG HCO3 19.4 mmol/L (22-26) L 10/22/21 21:30 ABG Base Excess -4.1 mmol/L (-2.0-2.0) L 10/22/21 21:30 Massimo Test Pos 10/22/21 21:30 Hematocrit 34.7 % (42-52) L 10/22/21 21:30 O2 Delivery Device Nc 10/22/21 21:30 O2 Liters/Min 6.0 % 10/22/21 21:30 Color Expert ID Fito 10/22/21 21:30 Sodium 139 mmol/L (136-145) 10/26/21 05:30 Potassium 5.0 mmol/L (3.5-5.1) 10/26/21 05:30 Chloride 105 mmol/L (98-107) 10/26/21 05:30 Carbon Dioxide 20 mmol/L (22-29) L 10/26/21 05:30 Anion Gap 19.0 (5-19) 10/26/21 05:30 BUN 73 mg/dL (8-23) H 10/26/21 05:30 Creatinine 2.7 mg/dL (0.7-1.2) H 10/26/21 05:30 GFR Calculation Not Reportable 10/26/21 05:30 Glucose 82 mg/dL (65-115) 10/26/21 05:30 POC Glucose 142 mg/dL (70-110) H 10/24/21 11:34 Calculated Osmolality 309 mOsm/kg (285-295) H 10/26/21 05:30 Lactic Acid 2.5 mmol/L (0.5-2.2) H 10/22/21 21:00 Lactic Acid (Sepsis) Cancelled 10/22/21 00:01 Lactate 1.0 mmol/L (0.5-2.2) 10/23/21 00:01 Calcium 6.8 mg/dL (8.5-10.5) L 10/26/21 05:30 Phosphorus 2.9 mg/dL (2.5-4.5) 10/26/21 05:30 Magnesium 2.3 mg/dL (1.7-2.3) 10/26/21 05:30 Total Bilirubin 0.4 mg/dL (0.15-1.2) 10/26/21 05:30 AST 20 U/L (0-40) 10/26/21 05:30 ALT 15 U/L (0-41) 10/26/21 05:30 Alkaline Phosphatase 33 IU/L (40-130) L 10/26/21 05:30 Troponin T Gen 5 ng/L 45 ng/L (0-15) H 10/26/21 05:30 Troponin T Baseline 84 ng/L (0-15) H 10/23/21 14:00 Troponin T 120 Minute 84.21 ng/L (0-15) H 10/23/21 16:10 Delta Troponin T 0.21 ABS# (0-10) 10/23/21 16:10 Troponin T Hi Sens 6Hr 72.61 ng/L (0-15) H 10/23/21 20:20 Troponin T Hi Sens 6Hr Delta -11.39 ng/L (0-12) L 10/23/21 20:20 C-Reactive Protein 31.5 mg/L (0.0-4.9) H 10/26/21 05:30 NT-Pro-B Natriuret Pep 875 pg/mL (0-450) H 10/26/21 05:30 Total Protein 5.7 g/dL (6.6-8.7) L 10/26/21 05:30 Albumin 3.1 g/dL (3.5-5.2) L 10/26/21 05:30 Globulin 2.6 g/dL (1.3-4.6) 10/26/21 05:30 Procalcitonin 2.87 ng/mL (0-0.5) H 10/26/21 05:30 PTH Intact 297.6 pg/mL (15-65) H 10/23/21 00:45 Calcium (PTH Intact) 7.7 mg/dL (8.5-10.5) L 10/23/21 00:45 Urine Color Straw (Yellow) 10/23/21 05:35 Urine Appearance Clear (CLEAR) 10/23/21 05:35 Urine pH 5 (5-7) 10/23/21 05:35 Ur Specific [place] 1.015 (1.005-1.030) 10/23/21 05:35 Urine Protein Neg (Negative) 10/23/21 05:35 Urine Glucose (UA) Norm (Normal) 10/23/21 05:35 Urine Ketones Negative (Negative) 10/23/21 05:35 Urine Blood 3+ (Negative) H 10/23/21 05:35 Urine Nitrate Negative (Negative) 10/23/21 05:35 Urine Bilirubin Neg (Negative) 10/23/21 05:35 Urine Urobilinogen Norm mg/dL (Negative) 10/23/21 05:35 Ur Leukocyte Esterase Negative (Negative) 10/23/21 05:35 Urine RBC 0-4 /hpf (0-2) H 10/23/21 05:35 Urine WBC 0-4 /hpf (0-5) H 10/23/21 05:35 Ur Squamous Epith Cells 0-4 /hpf (0-5) H 10/23/21 05:35 Amorphous Sediment Trace /hpf 10/23/21 05:35 Urine Bacteria Trace /hpf (NONE) 10/23/21 05:35 Nasal Influ A H1 2009 PCR Not detected (NOT DETECT) 10/23/21 11:45 Coronavirus 229E (PCR) Not detected (NOT DETECT) 10/23/21 11:45 Influenza A (H1) PCR Not detected (NOT DETECT) 10/23/21 11:45 Influenza A (H3) PCR Not detected (NOT DETECT) 10/23/21 11:45 Influenza Type A Ag Cancelled 10/23/21 11:45 Influenza Type A (PCR) Not detected (NOT DETECT) 10/23/21 11:45 Influenza Type B Ag Cancelled 10/23/21 11:45 Influenza Type B (PCR) Not detected (NOT DETECT) 10/23/21 11:45 SARS-CoV-2 (PCR) Detected (NOT DETECT) A 10/23/21 11:45 Vitals Last Vital Signs Temp 97.9 F 10/26/21 04:00 Pulse 124 H 10/26/21 09:50 Resp 24 H 10/26/21 09:50 BP 106/58 10/26/21 08:00 Pulse Ox 94 10/26/21 09:50 Discharge Plan Discharge Patient Disposition: Home Condition: Stable Prescriptions: New Eliquis 5 mg Tablet 2.5 mg PO Q12H 30 Days Qty: 30 0RF doxycycline hyclate 100 mg tablet 100 mg PO BID 7 Days Qty: 14 0RF cholecalciferol (vitamin D3) 25 mcg (1,000 unit) Tablet 1,000 unit PO DAILY 30 Days Qty: 60 0RF pantoprazole [Protonix] 40 mg tablet,delayed release (DR/EC) 40 mg PO BID 30 Days Qty: 60 0RF sucralfate [Carafate] 1 gram tablet 1 g PO BID 28 Days Qty: 56 0RF Continued budesonide-formoterol [Symbicort] 160-4.5 mcg/actuation HFA aerosol inhaler 2 puff INHALATION BID 0RF atorvastatin 40 mg Tablet 80 mg PO BEDTIME 30 Days Qty: 30 3RF metoprolol tartrate 25 mg Tablet 25 mg PO Q12H 30 Days Qty: 60 3RF nitroglycerin [Nitrostat] 0.4 mg Tablet, Sublingual 0.4 mg SUBLINGUAL Q5M PRN (Reason: Chest Pain) 30 Days Qty: 30 1RF clopidogrel 75 mg tablet 75 mg PO DAILY 0RF Hold Instructions: Resume on 09/22/21. albuterol sulfate 90 mcg/actuation HFA aerosol inhaler 2 puff INHALATION Q6H PRN (Reason: Shortness Of Breath) Qty: 1 2RF benzonatate 100 mg Capsule 200 mg PO TID PRN (Reason: Cough) Qty: 60 0RF Discharge Orders: Discharge Order (Routine); Ordered 10/26/21 Ordered By: Joshua Bernard Referrals: Hammad Tamayo MD [Physician] - 1 week Adama Olmedo MD [Primary Care Provider] - 1-3 days Discharge Diet: Cardiac Discharge Activity: Resume usual activity Patient Instructions: Opioid Safety Activity Restrictions/Additional Instructions: -For your COVID-19 pneumonia, and pneumonia -Please continue to ambulate -Please take antibiotics as prescribed -Please take inhaler therapy as prescribed -Continue blood thinner, Eliquis -If you develop bloody or black stools go to the emergency room -If you feel lightheaded or dizzy go to the emergency room -Recheck hemoglobin through primary care in 1 week -Use oxygen as prescribed Discharge Attestations Time Spent in Discharge Care*: less than 30 min Status at Discharge: Cognitive status at discharge: cognitively intact , Behavioral status at discharge: cooperative , Quality Metrics Clinical Quality Measures [ No reported AMI, CVA or VTE this stay] Coding Level of Care Code Acute Chg FW DC note Exam Detailed Diagnoses Acute respiratory failure with hypoxemia J96.01 COVID-19 U07.1 Acute kidney injury superimposed on CKD N17.9; N18.9 Anemia D64.9 Lower gastrointestinal hemorrhage K92.2
--- NOTE | 2021-10-26 11:43 | ECG_ITS ---
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 Measurements Intervals [place] Rate: 108 P: [place]: QRS: 83 QRSD: 92 T: 69 QT: 323 QTc: 433 Interpretive Statements SINUS TACHYCARDIA ABNORMAL RHYTHM ECG Compared to ECG 10/26/2021 10:00:06 Sinus tachycardia no longer present Electronically Signed On 10-26-2021 16:15:30 APIARIST by Osiris Mcclelland M.D. [email or web address]
[2021-10-26] MEDS: acetaminophen 325 mg Tablet 650 MG PO (12:40)
[2021-10-26] MEDS: benzonatate 100 mg Capsule 200 MG PO (12:40)
[2021-10-26] MEDS: dexamethasone 10 mg/mL INJ 6 MG IVP (12:40)
--- NOTE | 2021-10-26 16:46 | PC.NURSE ---
Discharge teaching and education were given to patient and healthcare insurance sales agent, all questions were answered at this time. IVs were discontinued. Vitals stable. Patient did not qualify for oxygen. Medications were sent to patients preferred pharmacy. Belongings were accounted for. Patient left with family member.
--- NOTE | 2021-10-29 14:55 | PC.SOCIAL ---
Son Scott called with multiple questions related to his care here.We discussed all questions voiced. 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 We discussed meds ordered and why. We discussed rehab options insurance plans and other information as well. Patient was given this nurse phone number to call if any further questions. Son was appreciative. Patient cancelled appt for PCP that was suppose to be today. Encouraged Son to have this rescheduled.
== END 2021-10-26 16:47 | disposition home health service (06) | DRG 177 ==
LOC: ER 22:36 → MEDSURG 23:37
PROVIDERS: Admitting Provider Internal Medicine; Emergency Provider Emergency Medicine; PCP Family Medicine; Visit Provider Family Medicine
DX: U07.1 COVID-19 (principal); J96.01 Acute respiratory failure with hypoxia; J12.82 Pneumonia due to coronavirus disease 2019; J18.9 Pneumonia, unspecified organism; K57.91 Diverticulosis of intestine, part unspecified, without perforation or abscess with bleeding; I26.99 Other pulmonary embolism without acute cor pulmonale; N17.9 Acute kidney failure, unspecified; G93.49 Other encephalopathy; I12.9 Hypertensive chronic kidney disease with stage 1 through stage 4 chronic kidney disease, or unspecified chronic kidney disease; N18.30 Chronic kidney disease, stage 3 unspecified; E78.5 Hyperlipidemia, unspecified; I25.2 Old myocardial infarction; I25.10 Atherosclerotic heart disease of native coronary artery without angina pectoris; E83.52 Hypercalcemia; E87.5 Hyperkalemia; D64.9 Anemia, unspecified; E87.70 Fluid overload, unspecified; K59.00 Constipation, unspecified; J44.9 Chronic obstructive pulmonary disease, unspecified; F03.90 Unspecified dementia, unspecified severity, without behavioral disturbance, psychotic disturbance, mood disturbance, and anxiety; H91.90 Unspecified hearing loss, unspecified ear; N44.8 Other noninflammatory disorders of the testis; Z95.5 Presence of coronary angioplasty implant and graft; Z86.79 Personal history of other diseases of the circulatory system; Z79.02 Long term (current) use of antithrombotics/antiplatelets; Z86.16 Personal history of COVID-19; Z87.891 Personal history of nicotine dependence
CPT/HCPCS: 36415; 36416; 71045; 71250; 74176; 80048; 80053; 81001; 82310; 82550; 82803; 82962; 83605; 83690; 83735; 83880; 83970; 84100; 84145; 84484; 85007; 85025; 85378; 85730; 86140; 86403; 87040; 87070; 87077; 87186; 87205; 87449; 87631; 87635; 87641; 92523; 92526; 92610; 93005; 93308; 93970; 94640; 94664; 96361; 96372; 96374; 96375; 97116; 97161; 97165; 99285; J0456; J0696; J1100; J1644; J1815; J1940; J2060; J2543; J3370; J3475; J3490; J3535; J7030; J7040; J7050; J7626

== ENCOUNTER 2021-12-12 17:15 | Emergency (ER) | payer MEDICARE, MEDICAID, SELFPAY ==
[2021-12-12 17:46] VITALS: BP 162/81; PULSE 104; RESP 18; TEMP 36.6; O2SAT 94
--- NOTE | 2021-12-12 17:57 | W.ED.SKABFB ---
HPI - Skin/Abscess/Foreign Bdy General: Chief complaint: Skin/Abscess/Foreign Body Stated complaint: Hand injury Time Seen by Provider: 12/12/21 17:52 History of Present Illness: Patient has left hand earlier today on a nail that was on a screen door. Having difficult time to get it to quit using. Patient is on Plavix. Patient says tetanus is up-to-date. Denies any other injury. Review of Systems Narrative: Abrasion/skin avulsion left palm from a nail on a screen door. Patient is very hard hearing Card: Denies: chest pain Resp: Denies: dyspnea Skin/Breast: Reports: other (Abrasion to left hand.) PFSH ED PFSH: Medical History Chronic kidney disease Chronic kidney disease, stage III (moderate) Cognitive impairment Colitis Constipation COPD (chronic obstructive pulmonary disease) Coronary artery disease COVID Hyperkalemia Hyperlipidemia Hypertension Non-ST elevation myocardial infarction (NSTEMI) SVT (supraventricular tachycardia) Surgical History Stented coronary artery 3 stents at [facility] 16 years ago Family History Denies family history of Clotting disorder Chronic kidney disease (CKD) Social History Smoking and tobacco status: former smoker Quit status (tobacco): has quit using tobacco Former quit date comment: Quit smoking few weeks ago Alcohol intake: never Household members: family Housing: House Physical Exam Const: COMMON NORMALS: no acute distress Resp: COMMON NORMALS: normal respiratory effort Psych: COMMON NORMALS: mental status grossly normal Skin: OTHER: Patient has an abrasion to the thenar eminence of left base of thumb mild superficial skin avulsion is oozing blood but not bleeding profusely at all. Not applied pressure to the area. Course Vital Signs: Vital signs: Vital Signs Temperature 97.9 F 12/12/21 17:46 Pulse Rate 104 H 12/12/21 17:46 Respiratory Rate 18 12/12/21 17:46 Blood Pressure 162/81 12/12/21 17:46 Pulse Oximetry 94 12/12/21 17:46 MDM - Skin/Abscess/Foreign Bdy Medicial Decision Making Abrasion/skin avulsion left hand. Patient's tetanus up-to-date. No other complaints problems. Pression bandage was applied. Discharge Plan Discharge Patient Disposition: Home Clinical Impression: Abrasion of hand Condition: Stable Prescriptions: No Action budesonide-formoterol [Symbicort] 160-4.5 mcg/actuation HFA aerosol inhaler 2 puff INHALATION BID 0RF atorvastatin 40 mg Tablet 80 mg PO BEDTIME 30 Days Qty: 30 3RF metoprolol tartrate 25 mg Tablet 25 mg PO Q12H 30 Days Qty: 60 3RF nitroglycerin [Nitrostat] 0.4 mg Tablet, Sublingual 0.4 mg SUBLINGUAL Q5M PRN (Reason: Chest Pain) 30 Days Qty: 30 1RF clopidogrel 75 mg tablet 75 mg PO DAILY 0RF Hold Instructions: Resume on 09/22/21. albuterol sulfate 90 mcg/actuation HFA aerosol inhaler 2 puff INHALATION Q6H PRN (Reason: Shortness Of Breath) Qty: 1 2RF benzonatate 100 mg Capsule 200 mg PO TID PRN (Reason: Cough) Qty: 60 0RF Discharge Orders: Discharge ED (Routine); Ordered 12/12/21 Ordered By: Lázaro Trevino Referrals: Adama Olmedo MD [Primary Care Provider] - Discharge Diet: Usual diet Discharge Activity: Resume usual activity Patient Instructions: Abrasion (ED) Activity Restrictions/Additional Instructions: Leave wrap on for 24 hours. Watch for signs of infection. Follow-up with your primary care provider if any worsening symptoms are you can return here. Coding Level of Care Code ED [employer] for Rubén Hanna
== END 2021-12-12 18:22 | disposition home or self-care (01) ==
PROVIDERS: Emergency Provider Nurse Practitioner Family; PCP Family Medicine
DX: S60.512A Abrasion of left hand, initial encounter (principal); W22.8XXA Striking against or struck by other objects, initial encounter
CPT/HCPCS: 99282

== ENCOUNTER 2022-03-18 18:41 | Emergency (ER) | payer MEDICARE, MEDICAID, SELFPAY ==
[2022-03-18 20:41] VITALS: BP 201/102; PULSE 98; RESP 18; TEMP 36.9; O2SAT 98; BMI 17.9
[2022-03-18 21:18] LABS: Basophils # 0.1 10^3/uL (0.0-0.1); Basophils % 0.4 %; Eosinophils # 0.2 10^3/uL (0.0-0.8); Eosinophils % 1.7 %; Hematocrit 35.3 % (42.0-52.0); Hemoglobin 10.5 g/dL (11.7-16.6); Lymphocytes # 1.3 10^3/uL (0.8-4.8); Lymphocytes % 9.7 %; Mean Corpuscular HGB Conc 29.7 g/dL (30.0-36.0); Mean Corpuscular Hemoglobin 25.5 pg (28.0-34.0); Mean Corpuscular Volume 85.7 fl (80-94); Mean Platelet Volume 11.5 fL (7.4-10.4); Monocytes % 7.1 %; Neutrophils # 11.09 10^3/uL (1.8-7.7); Neutrophils % 80.6 %; Nucleated Red Blood Cells % 0 %; Platelet Count 281 10^3/cmm (130-400); Red Blood Count 4.12 10^6/uL (4.1-5.3); Red Cell Distribution Width 20.8 % (12.1-15.1); White Blood Count 13.8 10^3/uL (4.0-10.0)
[2022-03-18 21:24] LABS: Lactate (Lactic Acid level) 0.8 mmol/L (0.5-2.2)
[2022-03-18 21:29] LABS: Alanine Aminotransferase < 5 U/L (0-41); Albumin Level 3.8 g/dL (3.5-5.2); Alkaline Phosphatase 74 IU/L (40-130); Anion Gap 19.6 (5-19); Aspartate Amino Transferase 7 U/L (0-40); Blood Urea Nitrogen 48 mg/dL (8-23); Calcium 9.2 mg/dL (8.5-10.5); Carbon Dioxide 20 mmol/L (22-29); Chloride 105 mmol/L (98-107); Globulin 3.4 g/dL (1.3-4.6); Glucose 81 mg/dL (65-115); Lipase 39 U/L (13-60); Osmolality Calculated 302 mOsm/kg (285-295); Potassium 4.6 mmol/L (3.5-5.1); Sodium 140 mmol/L (136-145); Total Bilirubin 0.3 mg/dL (0.15-1.2); Total Protein 7.2 g/dL (6.6-8.7)
--- NOTE | 2022-03-19 | CTR_ITS ---
PROCEDURE INFORMATION: Exam: CT Abdomen And Pelvis Without Contrast Exam date and time: 03/19/2022 12:14 AM Age: 86 years old Clinical indication: Prior surgery; Surgery type: Cardiac stents; Patient HX: C/O abd distention/bloating with increased urinary output. History of ckd. ; Additional info: Abd pain TECHNIQUE: Imaging protocol: Computed tomography of the abdomen and pelvis without contrast. Radiation optimization: All CT scans at this facility use at least one of these dose optimization techniques: automated exposure control; mA and/or kV adjustment per patient size (includes targeted exams where dose is matched to clinical indication); or iterative reconstruction. COMPARISON: CT abdomen pelvis wo con [id number] 10/20/2021 6:39 AM RADIATION DOSE METRICS: Total DLP (mGy-cm): 317.22 FINDINGS: Lungs: The visualized lung bases demonstrate bullous emphysematous changes and pleuroparenchymal scarring. Liver: There is no hepatomegaly. Gallbladder and bile ducts: No calcified gallstones. No ductal dilation. Pancreas: Normal size and homogeneous density. No ductal dilation. Spleen: Normal. No splenomegaly. Adrenal glands: Normal. No mass. Kidneys and ureters: There is no hydronephrosis. There is a simple appearing cyst in the upper pole of the left kidney measuring 3.8 x 3.6 cm, minimally changed in size from the comparison examination. In the right kidney, there is a 2 x 2.1 cm simple appearing cyst. Stomach and bowel: There is moderate fecal stasis throughout the colon. Moderate diverticulosis is present in the distal colon without acute diverticulitis. Appendix: No evidence of appendicitis. Intraperitoneal space: No free air. No significant fluid collection. Vasculature: There is moderate atherosclerotic calcification and tortuosity of the abdominal aorta and its branches without aneurysm. Lymph nodes: No enlarged retroperitoneal or mesenteric lymph nodes. Urinary bladder: The bladder shows a normal contour and is free of calcific opacities. Reproductive: There is a partially visualized right scrotal hydrocele. Bones/joints: There are enthesophytes of the bilateral iliac crests. Soft tissues: Unremarkable. CT/CT abdomen pelvis wo con [id number] IMPRESSION: 1. 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 2. Moderate fecal stasis throughout the colon. 3. Moderate diverticulosis of the descending and sigmoid colon without acute diverticulitis. 4. Bilateral simple appearing renal cysts. 5. A partially visualized right scrotal hydrocele. COMMENTS: Consistent with the [place] [employer]'s Incidental Findings Committee white paper (J Am Chacho Radiol 2018): Any incidental renal lesion less than 1 cm or classified as too small to characterize, or any incidental cystic renal lesion characterized as simple-appearing, is likely benign. No follow-up imaging is recommended for these lesions per consensus recommendations based on imaging criteria.
--- NOTE | 2022-03-19 00:27 | W.ED.ABDPA2 ---
HPI - Abdominal Pain General: Chief Complaint: Abdominal Pain Stated Complaint: abdomen pain Time Seen by Provider: 03/18/22 23:58 Source: patient Mode of arrival: ambulatory Limitations: no limitations History of Present Illness: 86-year-old male who states that he had some sharp pains in his left lower abdomen along with bloating throughout the day. He states it is intermittent when it started sharp he rates his pain currently a 1 out of 10. He denies any vomiting denies any fever denies any diarrhea he has had some increased urination as well. He is resting comfortably here. Associated Symptoms: Denies chills, dysuria and fever(s) Review of Systems Const: Denies: fever(s), chills, body aches or change in appetite Eyes: Denies: blurry vision or eye discomfort ENMT: Denies: throat pain or dental pain Card: Denies: chest pain Resp: Denies: dyspnea GI: Reports: abdominal pain : Denies: dysuria Musc: Denies: neck pain or back pain Skin/Breast: Denies: rash Neuro: Denies: headache(s) Psych: Denies: depression Juan Carlos/Lymph: Denies: easy bruising All/Imm: Denies: urticaria PFSH ED PFSH: Medical History Chronic kidney disease Chronic kidney disease, stage III (moderate) Cognitive impairment Colitis Constipation COPD (chronic obstructive pulmonary disease) Coronary artery disease COVID Hyperkalemia Hyperlipidemia Hypertension Non-ST elevation myocardial infarction (NSTEMI) SVT (supraventricular tachycardia) Surgical History Stented coronary artery 3 stents at [facility] 16 years ago Family History Denies family history of Clotting disorder Chronic kidney disease (CKD) Social History Smoking and tobacco status: former smoker Quit status (tobacco): has quit using tobacco Former quit date comment: Quit smoking few weeks ago Alcohol intake: never Household members: family Housing: House Physical Exam Const: COMMON NORMALS: no acute distress, patient oriented x3 and healthy appearing HENMT: COMMON NORMALS: normocephalic and atraumatic HEAD & SCALP: normocephalic and atraumatic Eye: COMMON NORMALS: Equal, round and reactive pupils present and EOMs intact bilaterally PUPIL: Yes Equal, round and reactive pupils present Neck/C-Spine: COMMON NORMALS: full ROM and supple Chest: COMMONS NORMALS: normal inspection of the chest and normal palpation of entire chest wall Resp: COMMON NORMALS: normal respiratory effort, No retractions, No use of accessory muscles and clear to auscultation bilaterally AUSCULTATION: clear to auscultation bilaterally Cardio: COMMON NORMALS: regular rate, regular rhythm and No murmurs present (Cardio) RATE: regular rate RHYTHM: regular rhythm GI: COMMON NORMALS: Normal to inspection, nondistended, normoactive bowel sounds present, Soft to palpation, non-tender and no masses PALPATION: Yes Soft to palpation Extremity: COMMON NORMALS: normal to inspection and full ROM Neuro: COMMON NORMALS: patient oriented x3, moves all extremities and no focal motor deficits Psych: COMMON NORMALS: mental status grossly normal, Normal thought process present and cooperative THOUGHT PROCESS: Normal thought process present Skin: COMMON NORMALS: no rashes or lesions noted and no wounds GENERAL SKIN EXAM: no rashes or lesions noted Course Vital Signs: Vital signs: Vital Signs Temperature 98.5 F 03/18/22 20:41 Pulse Rate 86 03/19/22 01:17 Respiratory Rate 23 H 03/19/22 01:17 Blood Pressure 124/85 03/19/22 01:17 Pulse Oximetry 97 03/19/22 01:17 Oxygen Delivery Me thod 03/19/22 01:17 MDM - Abdominal Pain Medical Decision Making Patient presents here some abdominal pain is mild in nature he does have some constipation patient also has hematuria here no signs of infection we will get him follow-up with urology for the hematuria we will prescribe him MiraLAX for his constipation his exam here is benign no signs of acute surgical abdomen he is return if worsening he understands agrees to plan. Lab Data : 03/18/22 20:59 03/18/22 20:59 Labs/Radiology: Radiology Impressions Abdomen/Pelvis CT 03/19/22 00:00 IMPRESSION: 1. 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 2. Moderate fecal stasis throughout the colon. 3. Moderate diverticulosis of the descending and sigmoid colon without acute diverticulitis. 4. Bilateral simple appearing renal cysts. 5. A partially visualized right scrotal hydrocele. COMMENTS: Consistent with the [place] [employer]'s Incidental Findings Committee white paper (J Am Chacho Radiol 2018): Any incidental renal lesion less than 1 cm or classified as too small to characterize, or any incidental cystic renal lesion characterized as simple-appearing, is likely benign. No follow-up imaging is recommended for these lesions per consensus recommendations based on imaging criteria. Laboratory Results WBC 13.8 10^3/uL (4.0-10.0) H 03/18/22 20:59 RBC 4.12 10^6/uL (4.1-5.3) 03/18/22 20:59 Hgb 10.5 g/dL (11.7-16.6) L 03/18/22 20:59 Hct 35.3 % (42.0-52.0) L 03/18/22 20:59 MCV 85.7 fl (80-94) 03/18/22 20:59 MCH 25.5 pg (28.0-34.0) L 03/18/22 20:59 MCHC 29.7 g/dL (30.0-36.0) L 03/18/22 20:59 RDW 20.8 % (12.1-15.1) H 03/18/22 20:59 Plt Count 281 10^3/cmm (130-400) 03/18/22 20:59 MPV 11.5 fL (7.4-10.4) H 03/18/22 20:59 Neut % (Auto) 80.6 % 03/18/22 20:59 Lymph % (Auto) 9.7 % 03/18/22 20:59 [place] % (Auto) 7.1 % 03/18/22 20:59 Eos % (Auto) 1.7 % 03/18/22 20:59 Baso % (Auto) 0.4 % 03/18/22 20:59 Neut # (Auto) 11.09 10^3/uL (1.8-7.7) H 03/18/22 20:59 Lymph # (Auto) 1.3 10^3/uL (0.8-4.8) 03/18/22 20:59 [place] # (Auto) 1.0 10^3/uL (0.2-0.9) H 03/18/22 20:59 Eos # (Auto) 0.2 10^3/uL (0.0-0.8) 03/18/22 20:59 Baso # (Auto) 0.1 10^3/uL (0.0-0.1) 03/18/22 20:59 Nucleated RBC % (auto) 0 % 03/18/22 20:59 Nucleated RBCs # 0.0 /100WBC 03/18/22 20:59 Sodium 140 mmol/L (136-145) 03/18/22 20:59 Potassium 4.6 mmol/L (3.5-5.1) 03/18/22 20:59 Chloride 105 mmol/L (98-107) 03/18/22 20:59 Carbon Dioxide 20 mmol/L (22-29) L 03/18/22 20:59 Anion Gap 19.6 (5-19) H 03/18/22 20:59 BUN 48 mg/dL (8-23) H 03/18/22 20:59 Creatinine 3.5 mg/dL (0.7-1.2) H 03/18/22 20:59 GFR Calculation Not Reportable 03/18/22 20:59 Glucose 81 mg/dL (65-115) 03/18/22 20:59 Calculated Osmolality 302 mOsm/kg (285-295) H 03/18/22 20:59 Lactate 0.8 mmol/L (0.5-2.2) 03/18/22 20:59 Calcium 9.2 mg/dL (8.5-10.5) 03/18/22 20:59 Total Bilirubin 0.3 mg/dL (0.15-1.2) 03/18/22 20:59 AST 7 U/L (0-40) 03/18/22 20:59 ALT < 5 U/L (0-41) 03/18/22 20:59 Alkaline Phosphatase 74 IU/L (40-130) 03/18/22 20:59 Total Protein 7.2 g/dL (6.6-8.7) 03/18/22 20:59 Albumin 3.8 g/dL (3.5-5.2) 03/18/22 20:59 Globulin 3.4 g/dL (1.3-4.6) 03/18/22 20:59 Lipase 39 U/L (13-60) 03/18/22 20:59 Urine Color Yellow (Yellow) 03/19/22 00:44 Urine Appearance Clear (CLEAR) 03/19/22 00:44 Urine pH 5 (5-7) 03/19/22 00:44 Ur Specific [place] 1.015 (1.005-1.030) 03/19/22 00:44 Urine Protein 2+ (Negative) H 03/19/22 00:44 Urine Glucose (UA) Norm (Normal) 03/19/22 00:44 Urine Ketones Negative (Negative) 03/19/22 00:44 Urine Blood 3+ (Negative) H 03/19/22 00:44 Urine Nitrate Negative (Negative) 03/19/22 00:44 Urine Bilirubin Neg (Negative) 03/19/22 00:44 Urine Urobilinogen Norm mg/dL (Negative) 03/19/22 00:44 Ur Leukocyte Esterase 1+ (Negative) H 03/19/22 00:44 Urine RBC >100 /hpf (0-2) H 03/19/22 00:44 Urine WBC 10-15 /hpf (0-5) H 03/19/22 00:44 Ur Squamous Epith Cells 0-4 /hpf (0-5) H 03/19/22 00:44 Amorphous Sediment Not Reportable 03/19/22 00:44 Urine Bacteria Trace /hpf (NONE) 03/19/22 00:44 Urine Mucus Trace /hpf 03/19/22 00:44 Discharge Plan Discharge Patient Disposition: Home Clinical Impression: Abdominal pain, Hematuria Condition: Stable Prescriptions: New Miralax 17 gram powder in packet 17 g PO DAILY PRN (Reason: constipation) Qty: 30 0RF No Action budesonide-formoterol [Symbicort] 160-4.5 mcg/actuation HFA aerosol inhaler 2 puff INHALATION BID atorvastatin 40 mg Tablet 80 mg PO BEDTIME 30 Days Qty: 30 3RF metoprolol tartrate 25 mg Tablet 25 mg PO Q12H 30 Days Qty: 60 3RF nitroglycerin [Nitrostat] 0.4 mg Tablet, Sublingual 0.4 mg SUBLINGUAL Q5M PRN (Reason: Chest Pain) 30 Days Qty: 30 1RF clopidogrel 75 mg tablet 75 mg PO DAILY Hold Instructions: Resume on 09/22/21. albuterol sulfate 90 mcg/actuation HFA aerosol inhaler 2 puff INHALATION Q6H PRN (Reason: Shortness Of Breath) Qty: 1 2RF benzonatate 100 mg Capsule 200 mg PO TID PRN (Reason: Cough) Qty: 60 0RF Discharge Orders: Discharge ED (Routine); Ordered 03/19/22 Ordered By: Tatum Rodríguez Referrals: Gregory Adair MD [Physician] - 1-3 days Adama Olmedo MD [Primary Care Provider] - Discharge Diet: Advance as tolerated Discharge Activity: Resume usual activity Patient Instructions: Hematuria (ED), Abdominal Pain (ED) Coding Level of Care Code ED Employee Development Manager for Chg Fwd Exam Comprehensive
[2022-03-19 00:56] LABS: Add Urine Microscopic? YES; Bilirubin Urine Neg (Negative); Blood Urine 3+ (Negative); Glucose Urine UA Norm (Normal); Ketones Urine Negative (Negative); Leukocyte Esterase Urine 1+ (Negative); Nitrate Urine Negative (Negative); Protein Urine 2+ (Negative); Specific Gravity, Urine 1.015 (1.005-1.030); Urine Appearance Clear (CLEAR); Urine Color Yellow (Yellow); Urobilinogen Urine Norm (Negative); pH Urine 5 (5-7)
[2022-03-19 00:57] LABS: Add Urine Culture? Yes; Bacteria Urine TRACE /hpf; Mucus Urine TRACE /hpf; RBC Urine >100 /hpf (0-2); Squamous Epithelial Cell Urine 0-4 /hpf (0-5)
[2022-03-19 01:17] VITALS: BP 124/85; PULSE 86; RESP 23; O2SAT 97
[2022-03-19 01:55] VITALS: BP 124/85; PULSE 85; RESP 22; TEMP 37.1; O2SAT 97
== END 2022-03-19 02:00 | disposition home or self-care (01) ==
PROVIDERS: Emergency Medicine; Emergency Provider Emergency Medicine; PCP Family Medicine
DX: R10.9 Unspecified abdominal pain (principal); R31.9 Hematuria, unspecified; Z79.02 Long term (current) use of antithrombotics/antiplatelets; I12.9 Hypertensive chronic kidney disease with stage 1 through stage 4 chronic kidney disease, or unspecified chronic kidney disease; N18.30 Chronic kidney disease, stage 3 unspecified; J44.9 Chronic obstructive pulmonary disease, unspecified; I25.10 Atherosclerotic heart disease of native coronary artery without angina pectoris; E78.5 Hyperlipidemia, unspecified; I25.2 Old myocardial infarction; Z87.891 Personal history of nicotine dependence
CPT/HCPCS: 36415; 74176; 80053; 81001; 83605; 83690; 85025; 87086; 99284

== ENCOUNTER 2022-06-11 09:50 | Emergency (ER) | payer MEDICARE, MEDICAID, SELFPAY ==
[2022-06-11] VITALS (9 sets, daily range): BP systolic 165–190; BP diastolic 88–90; PULSE 60–82; RESP 16–24; TEMP 35.8; O2SAT 92–98; BMI 18.8
--- NOTE | 2022-06-11 10:11 | ECG_ITS ---
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 Measurements Intervals [place] Rate: 66 P: 85 TN: 134 QRS: 85 QRSD: 80 T: 83 QT: 424 QTc: 444 Interpretive Statements SINUS RHYTHM Compared to ECG 10/26/2021 12:52:07 Sinus tachycardia no longer present Electronically Signed On 06-11-2022 16:49:48 CDT by Davi Phillips M.D. [id number] f
--- NOTE | 2022-06-11 10:15 | ED_ITS ---
HPI - SOB/Dyspnea General: Chief Complaint: Shortness of Breath/Dyspnea Stated Complaint: shortness of breath, bilateral wheezes Time Seen by Provider: 06/11/22 09:52 Source: patient Mode of arrival: EMS History of Present Illness: HPI Narrative: 86 yo presents to the emergency room with complaints of shortness of breath. Arrived via EMS EMS reported in the field he has had found to be 77% on room air with wheezing significant improvement after single nebulizer treatment. The time he arrived here and I seen him he was off oxygen states he is feeling much better than he had moderate wheeze. He states he has been having increased cough the last couple of days but no fever sweats chills cough nonproductive denies chest pain. MD elicited complaint: shortness of breath and cough Pertinent past history: COPD Onset (ago): hour(s) Timing: intermittent, improved and now resolved Severity: mild Exacerbating factors: exertion and coughing Relieving factors: oxygen, rest and bronchodilators Known history of: COPD Associated symptoms: Reports cough; Deny abdominal pain, chest congestion, chest pain, diaphoresis, dizziness, extremity pain, fever(s), hemoptysis, lightheadedness, myalgias, orthopnea, palpitations, paresthesias, polydipsia, polyuria, rash, sense of impending doom, syncope or vomiting Treatment prior to arrival: oxygen and bronchodilator Review of Systems Const: Denies: fever(s), chills, fatigue, malaise or diaphoresis ENMT: Denies: throat pain, ear or mastoid pain, nasal discharge or nasal zoraida estion Card: Denies: chest pain, palpitations, irregular heart rhythm, edema, lightheadedness, syncope or orthopnea Resp: Reports: dyspnea, non-productive cough and wheezing; Denies: productive cough, hemoptysis or chest congestion GI: Denies: abdominal pain or vomiting : Denies: flank pain, dysuria, urinary frequency or urinary urgency Musc: Denies: extremity pain Skin/Breast: Denies: rash or pruritus Neuro: Denies: dizziness Endo: Denies: polyuria or polydipsia [facility] ED PFSH: Medical History Chronic kidney disease Chronic kidney disease, stage III (moderate) Cognitive impairment Colitis Constipation COPD (chronic obstructive pulmonary disease) Coronary artery disease COVID Hyperkalemia Hyperlipidemia Hypertension Non-ST elevation myocardial infarction (NSTEMI) SVT (supraventricular tachycardia) Surgical History Stented coronary artery 3 stents at [facility] 16 years ago Family History Denies family history of Clotting disorder Chronic kidney disease (CKD) Social History Smoking and tobacco status: former smoker Quit status (tobacco): has quit using tobacco Former quit date comment: Quit smoking few weeks ago Alcohol intake: never Household members: family Housing: House Physical Exam Const: COMMON NORMALS: no acute distress GENERAL APPEARANCE: cooperative and comfortable ORIENTATION/CONSCIOUSNESS: Yes awake, Yes oriented to person, Yes oriented to place and Yes oriented to time HENMT: COMMON NORMALS: normocephalic, atraumatic and hearing grossly normal bilaterally HEAD & SCALP: normocephalic and atraumatic Resp: COMMON NORMALS: normal respiratory effort, No retractions and No use of accessory muscles AUSCULTATION: rhonchi and wheezes Cardio: COMMON NORMALS: regular rate, regular rhythm and No murmurs present (C ardio) RATE: regular rate RHYTHM: regular rhythm GI: COMMON NORMALS: Soft to palpation and No hepatosplenomegaly present AUSCULTATION: Yes normoactive bowel sounds PALPATION: Yes Soft to palpation, No Tenderness to palpation present (GI), No Guarding due to palpation present (GI) and Yes No hepatosplenomegaly present Extremity: COMMON NORMALS: normal to inspection, capillary refill normal, no clubbing, cyanosis or edema, no calf tenderness and no pedal edema Neuro: SENSORIUM/ORIENTATION: Yes oriented to person, Yes oriented to place and Yes oriented to time Skin: COMMON NORMALS: no rashes or lesions noted GENERAL SKIN EXAM: no rashes or lesions noted Course Vital Signs: Vital signs: Vital Signs Temperature 96.5 F L 06/11/22 09:53 Pulse Rate 82 06/11/22 14:26 Respiratory Rate 17 06/11/22 14:26 Blood Pressure 181/90 06/11/22 14:26 Pulse Oximetry 98 06/11/22 14:26 Oxygen Delivery Me thod 06/11/22 13:02 MDM - SOB/Dyspnea Medical Decision Making Sats are normal patient Javi states he feels much better he is little wheezing left after the nebulizer treatments he is monitored for time will discharge home on aggressive use of beta agonist to improve pulm toilet follow-up with primary. He is mildly anemic but this should be rechecked within the next week. Medical Records I reviewed the patient's medical records. Lab Data I reviewed the patient's lab results. : 06/11/22 11:15 06/11/22 11:15 Labs/Radiology: Radiology Impressions Chest X-Ray 06/11/22 10:16 Impression: Atherosclerosis and hyperinflation. Laboratory Results WBC 14.4 10^3/uL (4.0-10.0) H 06/11/22 11:15 RBC 3.54 10^6/uL (4.1-5.3) L 06/11/22 11:15 Hgb 9.7 g/dL (11.7-16.6) L 06/11/22 11:15 Hct 32.0 % (42.0-52.0) L 06/11/22 11:15 MCV 90.4 fl (80-94) 06/11/22 11:15 MCH 27.4 pg (28.0-34.0) L 06/11/22 11:15 MCHC 30.3 g/dL (30.0-36.0) 06/11/22 11:15 RDW 19.4 % (12.1-15.1) H 06/11/22 11:15 Plt Count 245 10^3/cmm (130-400) 06/11/22 11:15 MPV 11.2 fL (7.4-10.4) H 06/11/22 11:15 Neut % (Auto) 86.8 % 06/11/22 11:15 Lymph % (Auto) 7.0 % 06/11/22 11:15 [place] % (Auto) 4.4 % 06/11/22 11:15 Eos % (Auto) 0.8 % 06/11/22 11:15 Baso % (Auto) 0.4 % 06/11/22 11:15 Neut # (Auto) 12.49 10^3/uL (1.8-7.7) H 06/11/22 11:15 Lymph # (Auto) 1.0 10^3/uL (0.8-4.8) 06/11/22 11:15 [place] # (Auto) 0.6 10^3/uL (0.2-0.9) 06/11/22 11:15 Eos # (Auto) 0.1 10^3/uL (0.0-0.8) 06/11/22 11:15 Baso # (Auto) 0.1 10^3/uL (0.0-0.1) 06/11/22 11:15 Nucleated RBC % (auto) 0 % 06/11/22 11:15 Nucleated RBCs # 0.0 /100WBC 06/11/22 11:15 Sodium 138 mmol/L (136-145) 06/11/22 11:15 Potassium 5.3 mmol/L (3.5-5.1) H 06/11/22 11:15 Chloride 105 mmol/L (98-107) 06/11/22 11:15 Carbon Dioxide 18 mmol/L (22-29) L 06/11/22 11:15 Anion Gap 20.3 (5-19) H 06/11/22 11:15 BUN 29 mg/dL (8-23) H 06/11/22 11:15 Creatinine 2.4 mg/dL (0.7-1.2) H 06/11/22 11:15 GFR Calculation Not Reportable 06/11/22 11:15 Glucose 87 mg/dL (65-115) 06/11/22 11:15 Calculated Osmolality 291 mOsm/kg (285-295) 06/11/22 11:15 Calcium 7.3 mg/dL (8.5-10.5) L 06/11/22 11:15 Total Bilirubin 0.2 mg/dL (0.15-1.2) 06/11/22 11:15 AST 14 U/L (0-40) 06/11/22 11:15 ALT 9 U/L (0-41) 06/11/22 11:15 Alkaline Phosphatase 74 U/L (40-130) 06/11/22 11:15 Troponin T Baseline 42 ng/L (0-15) H 06/11/22 11:15 Troponin T 120 Minute 38.49 ng/L (0-15) H 06/11/22 13:10 Delta Troponin T -3.51 ABS# (0-10) L 06/11/22 13:10 Total Protein 6.7 g/dL (6.6-8.7) 06/11/22 11:15 Albumin 3.6 g/dL (3.5-5.2) 06/11/22 11:15 Globulin 3.1 g/dL (1.3-4.6) 06/11/22 11:15 Discharge Plan Discharge Patient Disposition: Home Clinical Impression: Acute exacerbation of chronic obstructive airways disease Condition: Stable Prescriptions: New albuterol sulfate 90 mcg/actuation HFA aerosol inhaler 2 inh INHALATION Q4H PRN (Reason: shortness of breath or wheezing) Qty: 18 0RF No Action atorvastatin 40 mg Tablet 80 mg PO BEDTIME 30 Days Qty: 30 3RF nitroglycerin [Nitrostat] 0.4 mg Tablet, Sublingual 0.4 mg SUBLINGUAL Q5M PRN (Reason: Chest Pain) 30 Days Qty: 30 1RF clopidogrel 75 mg tablet 75 mg PO DAILY Hold Instructions: Resume on 09/22/21. polyethylene glycol 3350 [Miralax] 17 gram powder in packet 17 g PO DAILY PRN (Reason: constipation) Qty: 30 0RF esomeprazole magnesium 40 mg capsule,delayed release(DR/EC) 40 mg PO DAILY aspirin 81 mg tablet,chewable 81 mg PO DAILY Stool Softener-Laxative 8.6-50 mg Tablet 1 tab PO DAILY Qty: 60 0RF hydralazine 25 mg Tablet 25 mg PO TID Qty: 90 3RF amlodipine 10 mg Tablet 10 mg PO DAILY Qty: 9 2RF Trelegy Ellipta 100-62.5-25 mcg blister with device 1 inh inhalation DAILY Qty: 60 4RF albuterol sulfate 90 mcg/actuation HFA aerosol inhaler 2 inh inhalation Q8H PRN (Reason: shortness of breath or wheezing) Qty: 8.5 3RF propranolol 40 mg tablet 20 mg PO BID Qty: 60 0RF Rx Instructions: Hold if heart rate below 60 metoprolol tartrate 25 mg Tablet 25 mg PO Q12H 30 Days Qty: 90 3RF Rx Instructions: Hold if heart rate below 60 Medrol (Sumanth) 4 mg tablets,dose pack See Rx Instructions .ROUTE .COMPLEX Qty: 21 0RF Rx Instructions: orally per package directions Discharge Orders: Discharge ED (Routine); Ordered 06/11/22 Ordered By: Heladio Cordova Referrals: Adama Olmedo MD [Primary Care Provider] - Patient Instructions: Opioid Safety, Pain Management Activity Restrictions/Additional Instructions: Follow-up with your primary care doctor if you are not improving if significantly worsen return to the emergency room Coding Level of Care Code ED File Clerk Data Entry for Rubén Hanna
--- NOTE | 2022-06-11 10:16 | XR_ITS ---
WS: [id number] Portable AP upright chest, 06/11/2022 Clinical Data: dyspnea/cough Comparison: Portable chest, 10/26/2021 Findings: No nodules, masses or effusions are seen. The heart is normal. The pulmonary vascularity is not increased. No pneumonia or pneumothorax is seen. There is mild tortuosity of the aortic arch and descending thoracic aorta. The diaphragms are flattened. There are monitor leads on the chest wall. XR/XR chest 1V portable [id number] Impression: Atherosclerosis and hyperinflation.
--- NOTE | 2022-06-11 10:33 | PC.PHAR ---
PT UNABLE TO VERIFY MEDS- UNABLE TO REACH RELATIVE THAT HELPS HIM WITH MEDS- VERIFIED USING EXTERNAL MED LIST LAST FILLED
[2022-06-11] MEDS: ipratropium-albuterol 3 mL Neb INHALATION (10:43)
[2022-06-11 11:22] LABS: Basophils # 0.1 10^3/uL (0.0-0.1); Basophils % 0.4 %; Eosinophils # 0.1 10^3/uL (0.0-0.8); Eosinophils % 0.8 %; Hemoglobin 9.7 g/dL (11.7-16.6); Mean Corpuscular HGB Conc 30.3 g/dL (30.0-36.0); Mean Corpuscular Hemoglobin 27.4 pg (28.0-34.0); Mean Corpuscular Volume 90.4 fl (80-94); Mean Platelet Volume 11.2 fL (7.4-10.4); Monocytes # 0.6 10^3/uL (0.2-0.9); Monocytes % 4.4 %; Neutrophils # 12.49 10^3/uL (1.8-7.7); Neutrophils % 86.8 %; Nucleated Red Blood Cells % 0 %; Platelet Count 245 10^3/cmm (130-400); Red Blood Count 3.54 10^6/uL (4.1-5.3); Red Cell Distribution Width 19.4 % (12.1-15.1); White Blood Count 14.4 10^3/uL (4.0-10.0)
[2022-06-11 11:45] LABS: Troponin(5th) Baseline 42 ng/L (0-15)
[2022-06-11 12:07] LABS: Alanine Aminotransferase 9 U/L (0-41); Albumin Level 3.6 g/dL (3.5-5.2); Alkaline Phosphatase 74 U/L (40-130); Aspartate Amino Transferase 14 U/L (0-40); Blood Urea Nitrogen 29 mg/dL (8-23); Calcium 7.3 mg/dL (8.5-10.5); Carbon Dioxide 18 mmol/L (22-29); Chloride 105 mmol/L (98-107); Globulin 3.1 g/dL (1.3-4.6); Glucose 87 mg/dL (65-115); Osmolality Calculated 291 mOsm/kg (285-295); Sodium 138 mmol/L (136-145); Total Bilirubin 0.2 mg/dL (0.15-1.2); Total Protein 6.7 g/dL (6.6-8.7)
[2022-06-11 12:08] LABS: Anion Gap 20.3 (5-19); Potassium 5.3 mmol/L (3.5-5.1)
--- NOTE | 2022-06-11 12:16 | ECG_ITS ---
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 Measurements Intervals [place] Rate: 67 P: 81 DE: 136 QRS: 83 QRSD: 85 T: 83 QT: 430 QTc: 455 Interpretive Statements SINUS RHYTHM Compared to ECG 06/11/2022 10:11:35 No significant changes Electronically Signed On 06-11-2022 16:53:37 CDT by Davi Phillips M.D. [email or web address] [employer] Comm[email or web address] community hospital & brentwood hospitalVivid Games/store/OM/[id number]
[2022-06-11 13:53] LABS: Troponin 5 2HR 38.49 ng/L (0-15); Troponin 5 2HR Delta -3.51 ABS# (0-10)
== END 2022-06-11 14:29 | disposition home or self-care (01) ==
PROVIDERS: Emergency Provider Family Medicine; PCP Family Medicine
DX: J44.1 Chronic obstructive pulmonary disease with (acute) exacerbation (principal); Z79.82 Long term (current) use of aspirin; Z79.02 Long term (current) use of antithrombotics/antiplatelets; I12.9 Hypertensive chronic kidney disease with stage 1 through stage 4 chronic kidney disease, or unspecified chronic kidney disease; N18.30 Chronic kidney disease, stage 3 unspecified; I25.10 Atherosclerotic heart disease of native coronary artery without angina pectoris; E78.5 Hyperlipidemia, unspecified; I25.2 Old myocardial infarction; Z87.891 Personal history of nicotine dependence
CPT/HCPCS: 36415; 71045; 80053; 84484; 85025; 93005; 94640; 96374; 99285; J2930

== ENCOUNTER 2022-06-13 08:10 | Observation (INO) | payer MEDICARE, MEDICAID, SELFPAY ==
[2022-06-13] VITALS (13 sets, daily range): BP systolic 100–201; BP diastolic 59–121; PULSE 56–78; RESP 16–23; TEMP 36.5–36.6; O2SAT 95–100; BMI 17.6
--- NOTE | 2022-06-13 08:32 | XRR_ITS ---
PROCEDURE INFORMATION: Exam: XR Chest Exam date and time: 06/13/2022 9:04 AM Age: 86 years old Clinical indication: Pain; Shortness of breath; Angina pectoris; Additional info: DEBBIE Mills TECHNIQUE: Imaging protocol: Radiologic exam of the chest. Views: 1 view. COMPARISON: CR XR chest 1V portable [id number] 06/11/2022 10:27 AM FINDINGS: Lungs: Background of emphysema. No focal airspace consolidation. Pleural spaces: Unremarkable. No pleural effusion. No pneumothorax. Heart/Mediastinum: Unremarkable. No cardiomegaly. Bones/joints: Unremarkable. XR/XR chest 1V portable [id number] IMPRESSION: Background of emphysema without acute cardiopulmonary abnormality.
--- NOTE | 2022-06-13 08:33 | ECG_ITS ---
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 Measurements Intervals [place] Rate: 63 P: 83 DC: 132 QRS: 83 QRSD: 89 T: 85 QT: 410 QTc: 423 Interpretive Statements SINUS RHYTHM Compared to ECG 06/11/2022 12:40:38 No significant changes Electronically Signed On 06-13-2022 22:04:21 CDT by Osiris Mcclelland M.D. [email or web address]/[id number]
[2022-06-13 09:06] LABS: Basophils # 0.1 10^3/uL (0.0-0.1); Basophils % 0.4 %; Eosinophils # 0.3 10^3/uL (0.0-0.8); Eosinophils % 1.6 %; Hematocrit 29.5 % (42.0-52.0); Lymphocytes # 1.1 10^3/uL (0.8-4.8); Lymphocytes % 6.5 %; Mean Corpuscular HGB Conc 30.5 g/dL (30.0-36.0); Mean Corpuscular Hemoglobin 27.3 pg (28.0-34.0); Mean Corpuscular Volume 89.4 fl (80-94); Mean Platelet Volume 11.1 fL (7.4-10.4); Monocytes # 0.8 10^3/uL (0.2-0.9); Monocytes % 4.9 %; Neutrophils # 14.37 10^3/uL (1.8-7.7); Nucleated Red Blood Cells % 0 %; Platelet Count 254 10^3/cmm (130-400); Red Cell Distribution Width 19.8 % (12.1-15.1); White Blood Count 16.7 10^3/uL (4.0-10.0)
[2022-06-13 09:23] LABS: Alanine Aminotransferase 12 U/L (0-41); Albumin Level 3.8 g/dL (3.5-5.2); Alkaline Phosphatase 64 U/L (40-130); Aspartate Amino Transferase 15 U/L (0-40); Blood Urea Nitrogen 36 mg/dL (8-23); Calcium 7.3 mg/dL (8.5-10.5); Carbon Dioxide 26 mmol/L (22-29); Chloride 108 mmol/L (98-107); Globulin 2.2 g/dL (1.3-4.6); Glucose 91 mg/dL (65-115); Lipase 28 U/L (13-60); Osmolality Calculated 308 mOsm/kg (285-295); Sodium 145 mmol/L (136-145); Total Bilirubin 0.2 mg/dL (0.15-1.2)
[2022-06-13 09:26] LABS: Anion Gap 16.1 (5-19); Potassium 5.1 mmol/L (3.5-5.1)
--- NOTE | 2022-06-13 09:29 | W.ED.SOB ---
HPI - SOB/Dyspnea General: Chief Complaint: Shortness of Breath/Dyspnea Stated Complaint: SOB Time Seen by Provider: 06/13/22 08:20 History of Present Illness: HPI Narrative: This patient is an 86-year-old presenting by EMS from home. Chief complaint is shortness of breath and chest pain. He reports that this started at around 6 AM with severe chest pain and trouble breathing. What ever EMS gave him in the ambulance resolved his symptoms and he feels better now. He is still on 2 L of oxygen at the time of my evaluation. He does use Symbicort at home. He also uses albuterol and is currently on prednisone prescribed 2 days ago. He is also taking doxycycline. He has a history of cardiac disease with several stents. He is on clopidogrel. He denies any recent illness, cough, fever. He is a former smoker. He was seen in the ED 2 days ago and prescribed the doxycycline and prednisone for a COPD exacerbation. He had room air sats in the 70s on that visit. Associated symptoms: Reports chest pain; Deny abdominal pain, fever(s), lightheadedness, nausea or vomiting Review of Systems General: Reports: 10 or more systems reviewed and unremarkable except in HPI and below Const: Denies: fever(s), chills, fatigue or malaise Eyes: Denies: change in vision ENMT: Denies: odynophagia Card: Reports: chest pain; Denies: edema, swelling of feet/ankles or lightheadedness Resp: Reports: dyspnea; Denies: productive cough, non-productive cough, wheezing or pain on inspiration GI: Denies: abdominal pain, nausea or vomiting : Denies: flank pain Musc: Denies: neck pain or back pain Skin/Breast: Denies: rash Neuro: Denies: headache(s), numbness in extremities or weakness in extremities Juan Carlos/Lymph: Denies: easy bruising or easy bleeding PFS ED PFSH: Medical History Chronic kidney disease Chronic kidney disease, stage III (moderate) Cognitive impairment Colitis Constipation COPD (chronic obstructive pulmonary disease) Coronary artery disease COVID Hyperkalemia Hyperlipidemia Hypertension Non-ST elevation myocardial infarction (NSTEMI) SVT (supraventricular tachycardia) Surgical History Stented coronary artery [address] [facility] 16 years ago Family History Denies family history of Clotting disorder Chronic kidney disease (CKD) Social History Smoking and tobacco status: former smoker Quit status (tobacco): has quit using tobacco Former quit date comment: Quit smoking few weeks ago Alcohol intake: never Household members: family Housing: House Physical Exam Const: COMMON NORMALS: no acute distress, patient oriented x3, no limitations and alert GENERAL APPEARANCE: cooperative and comfortable HENMT: HEAD & SCALP: normal to inspection FACE & SINUS: normal facial exam Eye: GENERAL EYE: appearance normal, both eyes and all related structures Neck/C-Spine: COMMON NORMALS: supple, no meningeal signs and no JVD Chest: COMMONS NORMALS: normal inspection of the chest Resp: COMMON NORMALS: negative for clear to auscultation bilaterally (Diminished) EFFORT & INSPECTION: Yes able to speak in complete sentences, Yes tachypneic and Yes uses accessory muscles AUSCULTATION: not clear to auscultation bilaterally (Diminished) and wheezes (Mild, diffuse) Cardio: COMMON NORMALS: no JVD, regular rate, regular rhythm and No murmurs present (Cardio) RATE: regular rate RHYTHM: regular rhythm GI: COMMON NORMALS: Normal to inspection, nondistended, normoactive bowel sounds present, Soft to palpation and non-tender INSPECTION: Yes normal to inspection AUSCULTATION: Yes normoactive bowel sounds PALPATION: Yes Soft to palpation Back/Pelvis: COMMON NORMALS: thoracic and lumbar spine normal to inspection Extremity: COMMON NORMALS: normal to inspection Neuro: COMMON NORMALS: patient oriented x3, moves all extremities, no focal motor deficits and no sensory deficits noted SENSORIUM/ORIENTATION: Yes alert MENINGEAL SIGNS: Yes no meningeal signs Psych: COMMON NORMALS: mental status grossly normal, cooperative and normal affect Skin: COMMON NORMALS: no rashes or lesions noted and turgor normal GENERAL SKIN EXAM: no rashes or lesions noted and turgor normal Course Vital Signs: Vital signs: Vital Signs Temperature 97.8 F 06/13/22 08:18 Pulse Rate 66 06/13/22 16:17 Respiratory Rate 16 06/13/22 16:17 Blood Pressure 125/105 06/13/22 16:17 Pulse Oximetry 100 06/13/22 16:17 Oxygen Delivery Me thod 06/13/22 16:17 Oxygen Flow Rate 2 06/13/22 14:45 MDM - SOB/Dyspnea Medical Decision Making Patient presenting with chest pain and respiratory symptoms. His symptoms had resolved on my evaluation after treatment by EMS. He does have history of both cardiac disease and lung disease. X-ray, EKG, troponin, basic labs. At this time he is not requiring another breathing treatment. He was instructed to inform me immediately if chest pain or worsening shortness of breath. Medical Records Review of prior labs show an elevated BUN/creatinine chronically. He is in about the same range as normal for him today. He also has anemia which is also fairly stable. His white count is elevated and that appears to be somewhat chronic as well although higher than typical today. The patient did not fill his antibiotic or prednisone that was prescribed 2 days ago. He continues to require oxygen in the ER to keep his sats above 90. He initially was fairly clear on arrival after having been given treatments by EMS. Later in the stay he complained of feeling short of breath again and did have some wheezing. He was given a DuoNeb after that. He feels like if he goes home he will just end up right back here and I agree with that assessment. He will be admitted to the hospitalist service for further management of his COPD exacerbation. Lab Data : 06/13/22 09:00 06/13/22 09:00 Labs/Radiology: Radiology Impressions Chest X-Ray 06/13/22 08:32 IMPRESSION: Background of emphysema without acute cardiopulmonary abnormality. Laboratory Results WBC 16.7 10^3/uL (4.0-10.0) H 06/13/22 09:00 RBC 3.30 10^6/uL (4.1-5.3) L 06/13/22 09:00 Hgb 9.0 g/dL (11.7-16.6) L 06/13/22 09:00 Hct 29.5 % (42.0-52.0) L 06/13/22 09:00 MCV 89.4 fl (80-94) 06/13/22 09:00 MCH 27.3 pg (28.0-34.0) L 06/13/22 09:00 MCHC 30.5 g/dL (30.0-36.0) 06/13/22 09:00 RDW 19.8 % (12.1-15.1) H 06/13/22 09:00 Plt Count 254 10^3/cmm (130-400) 06/13/22 09:00 MPV 11.1 fL (7.4-10.4) H 06/13/22 09:00 Neut % (Auto) 86.0 % 06/13/22 09:00 Lymph % (Auto) 6.5 % 06/13/22 09:00 [place] % (Auto) 4.9 % 06/13/22 09:00 Eos % (Auto) 1.6 % 06/13/22 09:00 Baso % (Auto) 0.4 % 06/13/22 09:00 Neut # (Auto) 14.37 10^3/uL (1.8-7.7) H 06/13/22 09:00 Lymph # (Auto) 1.1 10^3/uL (0.8-4.8) 06/13/22 09:00 [place] # (Auto) 0.8 10^3/uL (0.2-0.9) 06/13/22 09:00 Eos # (Auto) 0.3 10^3/uL (0.0-0.8) 06/13/22 09:00 Baso # (Auto) 0.1 10^3/uL (0.0-0.1) 06/13/22 09:00 Nucleated RBC % (auto) 0 % 06/13/22 09:00 Nucleated RBCs # 0.0 /100WBC 06/13/22 09:00 Sodium 145 mmol/L (136-145) 06/13/22 09:00 Potassium 5.1 mmol/L (3.5-5.1) 06/13/22 09:00 Chloride 108 mmol/L (98-107) H 06/13/22 09:00 Carbon Dioxide 26 mmol/L (22-29) 06/13/22 09:00 Anion Gap 16.1 (5-19) 06/13/22 09:00 BUN 36 mg/dL (8-23) H 06/13/22 09:00 Creatinine 2.7 mg/dL (0.7-1.2) H 06/13/22 09:00 GFR Calculation Not Reportable 06/13/22 09:00 Glucose 91 mg/dL (65-115) 06/13/22 09:00 Calculated Osmolality 308 mOsm/kg (285-295) H 06/13/22 09:00 Calcium 7.3 mg/dL (8.5-10.5) L 06/13/22 09:00 Total Bilirubin 0.2 mg/dL (0.15-1.2) 06/13/22 09:00 AST 15 U/L (0-40) 06/13/22 09:00 ALT 12 U/L (0-41) 06/13/22 09:00 Alkaline Phosphatase 64 U/L (40-130) 06/13/22 09:00 Troponin T Baseline 42 ng/L (0-15) H 06/13/22 09:00 Troponin T 120 Minute 37.47 ng/L (0-15) H 06/13/22 11:11 Delta Troponin T -4.53 ABS# (0-10) L 06/13/22 11:11 Total Protein 6.0 g/dL (6.6-8.7) L 06/13/22 09:00 Albumin 3.8 g/dL (3.5-5.2) 06/13/22 09:00 Globulin 2.2 g/dL (1.3-4.6) 06/13/22 09:00 Lipase 28 U/L (13-60) 06/13/22 09:00 Urine Color Straw (Yellow) 06/13/22 09:50 Urine Appearance Clear (CLEAR) 06/13/22 09:50 Urine pH 6 (5-7) 06/13/22 09:50 Ur Specific [place] 1.010 (1.005-1.030) 06/13/22 09:50 Urine Protein 2+ (Negative) H 06/13/22 09:50 Urine Glucose (UA) Norm (Normal) 06/13/22 09:50 Urine Ketones Negative (Negative) 06/13/22 09:50 Urine Blood 2+ (Negative) H 06/13/22 09:50 Urine Nitrate Negative (Negative) 06/13/22 09:50 Urine Bilirubin Neg (Negative) 06/13/22 09:50 Urine Urobilinogen Norm mg/dL (Negative) 06/13/22 09:50 Ur Leukocyte Esterase Negative (Negative) 06/13/22 09:50 Urine RBC Rare /hpf (0-2) 06/13/22 09:50 Urine WBC None /hpf (0-5) 06/13/22 09:50 Ur Squamous Epith Cells Rare /hpf (0-5) 06/13/22 09:50 Amorphous Sediment Not Reportable 06/13/22 09:50 Urine Bacteria None /hpf (NONE) 06/13/22 09:50 Discharge Plan Discharge Patient Disposition: Admitted As Inpatient Admit Provider: Travon Springer Clinical Impression: Acute exacerbation of chronic obstructive pulmonary disease Condition: Stable Coding Level of Care Code 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
[2022-06-13 09:31] LABS: Troponin(5th) Baseline 42 ng/L (0-15)
[2022-06-13] MEDS: sodium chloride 0.9% 500 ML 999 ML IV (09:40)
[2022-06-13 10:10] LABS: Urine Appearance Clear (CLEAR); Urine Color Straw (Yellow); pH Urine 6 (5-7)
[2022-06-13 10:11] LABS: Add Urine Microscopic? YES; Bilirubin Urine Neg (Negative); Blood Urine 2+ (Negative); Glucose Urine UA Norm (Normal); Ketones Urine Negative (Negative); Leukocyte Esterase Urine Negative (Negative); Nitrate Urine Negative (Negative); Protein Urine 2+ (Negative); Urobilinogen Urine Norm (Negative)
--- NOTE | 2022-06-13 10:11 | ECG_ITS ---
[facility] Test Date: 2022-06-13 Pat Name: Jimenez Green Department: Room: Gender: Male Referral Specialist: : 1935 Requested By: Sweta Perez Order Number: [id number] Samai MD: Osiris Mcclelland M.D. Measurements Intervals [place] Rate: 64 P: 77 NV: 128 QRS: 81 QRSD: 90 T: 66 QT: 431 QTc: 446 Interpretive Statements SINUS RHYTHM Compared to ECG 06/13/2022 08:20:07 No significant changes Electronically Signed On 06-14-2022 23:10:22 CDT by Osiris Mcclelland M.D. [id number]
[2022-06-13 10:14] LABS: Add Urine Culture? No; RBC Urine RARE /hpf (0-2); Squamous Epithelial Cell Urine RARE /hpf (0-5)
[2022-06-13 11:49] LABS: Troponin 5 2HR 37.47 ng/L (0-15)
[2022-06-13 11:52] LABS: Troponin 5 2HR Delta -4.53 ABS# (0-10)
[2022-06-13] MEDS: ipratropium-albuterol 3 mL Neb INHALATION ×2 (12:23→19:58)
[2022-06-13 12:34] LABS: ABG PCO2 41.5 mmHg (35-45); ABG PH Result 7.36 (7.35-7.45); Base Excess ABG -1.7 mmol/L (-2.0-2.0); Blood Gas Sample Site Brachial, left; Blood Gas Sample Type Arterial; HCO3 ABG 23.6 mmol/L (22-26); Oxygen Device NC
[2022-06-13] MEDS: cloNIDine 0.1 mg Tablet PO (14:56)
--- NOTE | 2022-06-13 15:10 | PM.HP ---
Providers/Chief Complaint Admitting Physician: Travon Springer MD Primary Care Provider: Adama Olmedo MD Chief Complaint: SOB History of Present Illness Jimenez Green is a 86 year old male who carries history of emphysematous COPD, does not use oxygen at home, presented to the hospital with gradual decline of his health and worsening of shortness of breath. Patient stating that his symptoms started roughly 2 months ago, he has not noticed any fever, he has been experiencing dry cough, endorsing recent sinus infection as well. Today he decided to come to the hospital for worsening of dyspnea on exertion. He does not have any rn clinical documentation specialist, he has history of chronic kidney disease stage III to stage IV, he suffers with uncontrolled hypertension. Hospitalist was requested to admit him for COPD exacerbation because of his active wheezing In the ER he received clonidine for his hypertensive urgency He also received 10 mg of IV hydralazine DuoNeb treatment and a liter bolus Diagnostic work-up showed leukocytosis with chronic anemia ABG showing appropriate pH, his oxygen 122 on 2 L Chronic kidney disease creatinine seems around baseline 2.7, troponins negative delta, EKG showing sinus rhythm Please note he was seen in the ER few days ago he was prescribed antibiotics and steroid course that would explain his leukocytosis no active source of infection identified yet Review of Systems Const: Reports: chills and body aches; Denies: fever(s) Eyes: Denies: change in vision ENMT: Denies: throat pain Card: Denies: chest pain Resp: Reports: dyspnea GI: Denies: abdominal pain : Denies: flank pain Musc: Denies: neck pain Skin/Breast: Denies: rash Neuro: Denies: headache(s) Psych: Reports: anxiety Endo: Denies: polyuria Juan Carlos/Lymph: Denies: easy bruising All/Imm: Denies: urticaria Medications/Allergies Home Medications Medication Instructions Recorded Confirmed Last Taken Type budesonide-formoterol HFA 160 2 puff inhalation BID 07/11/21 06/13/22 06/12/22 History mcg-4.5 mcg/actuation aerosol inhaler (Symbicort) atorvastatin 40 mg tablet 80 mg PO BEDTIME 30 days #30 tabs 07/13/21 06/13/22 06/12/22 Rx metoprolol tartrate 25 mg tablet 25 mg PO Q12H 30 days #60 tabs 07/13/21 06/13/22 06/12/22 Rx nitroglycerin 0.4 mg sublingual 0.4 mg sublingual Q5M PRN Chest 07/13/21 06/13/22 06/11/22 Rx tablet (Nitrostat) Pain 30 days #30 tabs clopidogrel 75 mg tablet 75 mg PO DAILY 09/13/21 06/13/22 06/12/22 History albuterol sulfate 90 mcg/actuation 2 puff inhalation Q6H PRN 09/15/21 06/13/22 Unknown Rx aerosol inhaler Shortness Of Breath #1 g polyethylene glycol 3350 17 gram 17 g PO DAILY PRN constipation #30 03/19/22 06/13/22 Unknown Rx oral powder packet (Miralax) ea albuterol sulfate 90 mcg/actuation 2 inh inhalation Q4H PRN shortness 06/11/22 06/13/22 Unknown Rx aerosol inhaler of breath or wheezing #18 grams aspirin 81 mg chewable tablet 81 mg PO DAILY 06/11/22 06/13/22 06/12/22 History doxycycline hyclate 100 mg capsule 100 mg PO BID 10 days #20 caps 06/11/22 06/13/22 Unknown Rx esomeprazole magnesium 40 mg 40 mg PO DAILY 06/11/22 06/13/22 06/12/22 History capsule,delayed release lisinopril 10 mg tablet 10 mg PO DAILY 06/11/22 06/13/22 06/12/22 History prednisone 20 mg tablet 20 mg PO TID #15 tabs 06/11/22 06/13/22 Unknown Rx propranolol 40 mg tablet 40 mg PO BID 06/11/22 06/13/22 06/12/22 History Allergies Allergy/AdvReac Type Severity Reaction Status Date / Time No Known Allergies Allergy Verified 06/11/22 10:32 PFSH Acute PFSH: Medical History Chronic kidney disease Chronic kidney disease, stage III (moderate) Cognitive impairment Colitis Constipation COPD (chronic obstructive pulmonary disease) Coronary artery disease COVID Hyperkalemia Hyperlipidemia Hypertension Non-ST elevation myocardial infarction (NSTEMI) SVT (supraventricular tachycardia) Surgical History Stented coronary artery 3 stents at [facility] 16 years ago Family History Denies family history of Clotting disorder Chronic kidney disease (CKD) Social History Smoking and tobacco status: former smoker Quit status (tobacco): has quit using tobacco Former quit date comment: Quit smoking few weeks ago Alcohol intake: never Household members: family Housing: House Vitals/I&O/Wt Last Vital Signs Temp 97.8 F 06/13/22 08:18 Pulse 60 06/13/22 14:45 Resp 22 H 06/13/22 14:45 BP 183/106 06/13/22 14:56 Pulse Ox 100 06/13/22 14:45 O2 Del Method 06/13/22 14:45 O2 Flow Rate 2 06/13/22 14:45 06/13/22 06/13/22 06/13/22 06:59 14:59 22:59 Intake Total 500 / 500 Balance 500 / 500 Weight last 48 hrs Weight 57.606 kg Physical Exam Narrative: Pleasant cooperative male Currently on 2 L of oxygen Patient is stating he is feeling better No active chest pain I do not hear active wheezing Diminished breath sounds bilaterally No respite distress Very hard of hearing He is wearing a hearing aid Awake and alert Euvolemic Pleasant during my evaluation Nonfocal neuro exam Data : 06/13/22 09:00 06/13/22 09:00 A&P Assessment and plan (1) Acute exacerbation of chronic obstructive airways disease: (2) Chronic kidney disease: Plan Acute COPD exacerbation Does not use oxygen at home Continue ceftriaxone DuoNeb treatment IV steroids wheezing Will do home O2 evaluation at the time of discharge Check D-dimer EKG sinus rhythm Negative delta troponin Leukocytosis secondary to use of steroids at home Because of COPD exacerbation I will give him ceftriaxone however chest x-ray is not showing any active pneumonia or infiltrate Hypertensive urgency Underlying chronic kidney disease He cannot take lisinopril I will give him hydralazine, add amlodipine With clonidine his heart rate has been dipping down to 60s I will keep him on IV hydralazine as needed basis Patient does not have any rn clinical documentation specialist Will need outpatient follow-up Patient lives with his nephew at home Full code Cardiac diet DVT prophylaxis Heparin Attestations Medical Necessity Statement*: Less than 2 midnights anticipated for COPD exacerbation management Time Spent in Patient Care: 40 Coding Level of Care Code 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
[2022-06-13 15:36] LABS: Troponin 5 6HR 32.55 ng/L (0-15)
--- NOTE | 2022-06-13 15:58 | ECG_ITS ---
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 Measurements Intervals [place] Rate: 60 P: 81 CO: 129 QRS: 82 QRSD: 88 T: 83 QT: 437 QTc: 439 Interpretive Statements SINUS RHYTHM Compared to ECG 06/13/2022 10:11:03 No significant changes Electronically Signed On 06-14-2022 23:09:58 CDT by Osiris Mcclelland M.D. [id number]
[2022-06-13] MEDS: hyDRALAzine 20 mg/mL INJ 1 mL 10 MG IVP (16:16)
[2022-06-13 17:24] LABS: D Dimer 0.69 ug/mIFEU (0-0.59)
[2022-06-13 17:27] LABS: Glucose Point of Care 64 mg/dL (70-110)
[2022-06-13 17:42] LABS: Procalcitonin 0.06 ng/mL (0-0.5); Vitamin B12 376 pg/mL (232-1245)
[2022-06-13] MEDS: nitroglycerin 1 gm/inch oint Pkt 1 INCH TOPICAL ×2 (17:51→23:09)
[2022-06-13] MEDS: metoprolol tartrate 25 mg Tablet PO (17:51)
[2022-06-13] MEDS: amlodipine 10 mg Tablet PO (17:51)
[2022-06-13] MEDS: hyDRALAzine 25 mg Tablet PO ×2 (17:51→21:38)
[2022-06-13] MEDS: heparin 5,000 unit/mL INJ 1 mL 5000 UNIT SUBCUT (17:53)
[2022-06-13 18:09] LABS: Glucose Point of Care 69 mg/dL (70-110)
[2022-06-13 18:36] LABS: Glucose Point of Care 78 mg/dL (70-110)
--- NOTE | 2022-06-13 18:40 | PC.NURSE ---
Notified Dr. Springer of patients blood sugar 64. Ate dinner and orange juice, blood sugar 78. Verbal orders to give D50 amp.
[2022-06-13] MEDS: dextrose 50% syringe 50 mL IVP (18:42)
[2022-06-13 19:36] LABS: Glucose Point of Care 187 mg/dL (70-110)
[2022-06-13] MEDS: budesonide 0.5 mg/2 mL Neb INHALATION (19:58)
[2022-06-13] MEDS: propranolol 40 mg Tablet PO (21:38)
[2022-06-14] VITALS (7 sets, daily range): BP systolic 107–124; BP diastolic 57–78; PULSE 68–96; RESP 16–18; TEMP 36.5–36.6; O2SAT 85–100
[2022-06-14 04:50] LABS: Basophils # 0.1 10^3/uL (0.0-0.1); Basophils % 0.5 %; Eosinophils # 0.3 10^3/uL (0.0-0.8); Hematocrit 28.4 % (42.0-52.0); Hemoglobin 8.4 g/dL (11.7-16.6); Lymphocytes # 1.2 10^3/uL (0.8-4.8); Lymphocytes % 8.6 %; Mean Corpuscular HGB Conc 29.6 g/dL (30.0-36.0); Mean Corpuscular Hemoglobin 27.2 pg (28.0-34.0); Mean Corpuscular Volume 91.9 fl (80-94); Mean Platelet Volume 11.6 fL (7.4-10.4); Monocytes # 1.2 10^3/uL (0.2-0.9); Monocytes % 8.5 %; Neutrophils # 11.21 10^3/uL (1.8-7.7); Neutrophils % 79.8 %; Nucleated Red Blood Cells % 0 %; Platelet Count 216 10^3/cmm (130-400); Red Blood Count 3.09 10^6/uL (4.1-5.3); Red Cell Distribution Width 19.9 % (12.1-15.1); White Blood Count 14.1 10^3/uL (4.0-10.0)
[2022-06-14 05:10] LABS: Blood Urea Nitrogen 36 mg/dL (8-23); C Reactive Protein 9.7 mg/L (0.0-4.9); Calcium 7.2 mg/dL (8.5-10.5); Carbon Dioxide 21 mmol/L (22-29); Chloride 106 mmol/L (98-107); Glucose 74 mg/dL (65-115); Osmolality Calculated 291 mOsm/kg (285-295); Sodium 137 mmol/L (136-145)
[2022-06-14 05:14] LABS: Anion Gap 14.3 (5-19)
[2022-06-14 05:15] LABS: Potassium 4.3 mmol/L (3.5-5.1)
[2022-06-14 05:16] LABS: Magnesium 0.9 mg/dL (1.7-2.3)
[2022-06-14] MEDS: metoprolol tartrate 25 mg Tablet PO (05:33)
[2022-06-14] MEDS: magnesium sulfate premix 2 GM/50 ML PIGGYBACK IV (05:33)
[2022-06-14] MEDS: nitroglycerin 1 gm/inch oint Pkt 1 INCH TOPICAL ×2 (05:33→12:23)
[2022-06-14] MEDS: heparin 5,000 unit/mL INJ 1 mL 5000 UNIT SUBCUT (05:33)
[2022-06-14 06:35] LABS: Glucose Point of Care 86 mg/dL (70-110)
[2022-06-14] MEDS: cefTRIAXone 1,000 MG in sodium chloride 0.9% (plus) 50 ML 100 MG IV (08:02)
[2022-06-14] MEDS: hyDRALAzine 25 mg Tablet PO (08:03)
[2022-06-14] MEDS: pantoprazole DR 40 mg Tablet PO (08:03)
[2022-06-14] MEDS: clopidogrel 75 mg Tablet PO (08:03)
[2022-06-14] MEDS: amlodipine 10 mg Tablet PO (08:03)
[2022-06-14] MEDS: sennosides-docusate Tablet 1 TAB PO (08:03)
[2022-06-14] MEDS: aspirin 81 mg Chew Tablet PO (08:03)
[2022-06-14] MEDS: propranolol 40 mg Tablet PO (08:16)
[2022-06-14] MEDS: ipratropium-albuterol 3 mL Neb INHALATION ×2 (09:09→13:08)
[2022-06-14] MEDS: budesonide 0.5 mg/2 mL Neb INHALATION (09:09)
--- NOTE | 2022-06-14 09:54 | P.DS_ITS ---
Discharge Providers Date of Admission: 06/13/22 12:14 Date of Discharge: June 14, 2022 Attending Provider at Admission: Travon Springer MD Attending Provider at Discharge: Travon Springer MD Primary Care Provider: Adama Olmedo MD Diagnoses at Discharge Discharge Diagnosis (1) Acute exacerbation of chronic obstructive airways disease: Status: Acute (2) Chronic kidney disease: Status: Acute Reason for Visit Reason for Visit: SOB Hospital Course Hospital Course 86-year male with history of chronic kidney disease, hypertension, COPD not oxygen dependent presented to hospital for worsening of shortness of breath, was diagnosed with hypertensive urgency and COPD exacerbation, he was requiring 2 L of oxygen however ABG revealed hypoxemia I requested home O2 evaluation before discharge, blood pressure has improved on amlodipine 10 mg, hydralazine 25 mg 3 times daily, Metroprolol tartrate 25 mg twice daily, he did receive IV push of hydralazine and a dose of clonidine at the time of admission. Hypomagnesemia was repleted. I will give him pulmonary referral he never had any pulmonary function test. His hemoglobin fluctuates between 8.9-9.9. No signs of tachycardia or hypotension. Might benefit from pulmonary rehab. Not actively smoking. D-dimer unremarkable. Creatinine at baseline at the time of discharge Will give him Medrol pack at the time of discharge, trelogy and albuterol inhalers Physical Exam Narrative: Wheezing improved Currently on 2 L of oxygen Awake and alert Eating breakfast Abdomen soft No signs of edema of extremity EOMI, PERRLA Nonfocal neuro exam Discharge Data Studies Completed and Pending Completed Studies During Hospitalization Category Date Time Status XR chest 1V portable [id number] Stat Exams 06/13/22 08:32 Completed Radiology Impressions Chest X-Ray 06/13/22 08:32 IMPRESSION: Background of emphysema without acute cardiopulmonary abnormality. Laboratory Results WBC 14.1 10^3/uL (4.0-10.0) H 06/14/22 04:06 RBC 3.09 10^6/uL (4.1-5.3) L 06/14/22 04:06 Hgb 8.4 g/dL (11.7-16.6) L 06/14/22 04:06 Hct 28.4 % (42.0-52.0) L 06/14/22 04:06 MCV 91.9 fl (80-94) 06/14/22 04:06 MCH 27.2 pg (28.0-34.0) L 06/14/22 04:06 MCHC 29.6 g/dL (30.0-36.0) L 06/14/22 04:06 RDW 19.9 % (12.1-15.1) H 06/14/22 04:06 Plt Count 216 10^3/cmm (130-400) 06/14/22 04:06 MPV 11.6 fL (7.4-10.4) H 06/14/22 04:06 Neut % (Auto) 79.8 % 06/14/22 04:06 Lymph % (Auto) 8.6 % 06/14/22 04:06 Sequoyah % (Auto) 8.5 % 06/14/22 04:06 Eos % (Auto) 2.0 % 06/14/22 04:06 Baso % (Auto) 0.5 % 06/14/22 04:06 Neut # (Auto) 11.21 10^3/uL (1.8-7.7) H 06/14/22 04:06 Lymph # (Auto) 1.2 10^3/uL (0.8-4.8) 06/14/22 04:06 [place]oyah # (Auto) 1.2 10^3/uL (0.2-0.9) H 06/14/22 04:06 Eos # (Auto) 0.3 10^3/uL (0.0-0.8) 06/14/22 04:06 Baso # (Auto) 0.1 10^3/uL (0.0-0.1) 06/14/22 04:06 Nucleated RBC % (auto) 0 % 06/14/22 04:06 Nucleated RBCs # 0.0 /100WBC 06/14/22 04:06 D-Dimer 0.69 ug/mIFEU (0-0.59) H 06/13/22 16:48 Specimen Type Arterial 06/13/22 12:25 Sample Site Brachial, left 06/13/22 12:25 ABG pH 7.36 (7.35-7.45) 06/13/22 12:25 ABG pCO2 41.5 mmHg (35-45) 06/13/22 12:25 ABG pO2 122.0 mmHg (80.0-100.0) H 06/13/22 12:25 ABG HCO3 23.6 mmol/L (22-26) 06/13/22 12:25 ABG Base Excess -1.7 mmol/L (-2.0-2.0) 06/13/22 12:25 Massimo Test N/a 06/13/22 12:25 Hematocrit 27.0 % (42-52) L 06/13/22 12:25 O2 Delivery Device Nc 06/13/22 12:25 O2 Liters/Min 2.0 % 06/13/22 12:25 Dining Room Supervisor ID Daniel 06/13/22 12:25 Sodium 137 mmol/L (136-145) 06/14/22 04:06 Potassium 4.3 mmol/L (3.5-5.1) 06/14/22 04:06 Chloride 106 mmol/L (98-107) 06/14/22 04:06 Carbon Dioxide 21 mmol/L (22-29) L 06/14/22 04:06 Anion Gap 14.3 (5-19) 06/14/22 04:06 BUN 36 mg/dL (8-23) H 06/14/22 04:06 Creatinine 2.2 mg/dL (0.7-1.2) H 06/14/22 04:06 GFR Calculation Not Reportable 06/14/22 04:06 Glucose 74 mg/dL (65-115) 06/14/22 04:06 POC Glucose 86 mg/dL (70-110) 06/14/22 06:23 Calculated Osmolality 291 mOsm/kg (285-295) 06/14/22 04:06 Calcium 7.2 mg/dL (8.5-10.5) L 06/14/22 04:06 Magnesium 0.9 mg/dL (1.7-2.3) L 06/14/22 04:06 Total Bilirubin 0.2 mg/dL (0.15-1.2) 06/13/22 09:00 AST 15 U/L (0-40) 06/13/22 09:00 ALT 12 U/L (0-41) 06/13/22 09:00 Alkaline Phosphatase 64 U/L (40-130) 06/13/22 09:00 Troponin T Baseline 42 ng/L (0-15) H 06/13/22 09:00 Troponin T 120 Minute 37.47 ng/L (0-15) H 06/13/22 11:11 Delta Troponin T -4.53 ABS# (0-10) L 06/13/22 11:11 Troponin T Hi Sens 6Hr 32.55 ng/L (0-15) H 06/13/22 15:00 Troponin T Hi Sens 6Hr Delta -9.45 ng/L (0-12) L 06/13/22 15:00 C-Reactive Protein 9.7 mg/L (0.0-4.9) H 06/14/22 04:06 Total Protein 6.0 g/dL (6.6-8.7) L 06/13/22 09:00 Albumin 3.8 g/dL (3.5-5.2) 06/13/22 09:00 Globulin 2.2 g/dL (1.3-4.6) 06/13/22 09:00 Lipase 28 U/L (13-60) 06/13/22 09:00 Vitamin B12 376 pg/mL (232-1245) 06/13/22 16:48 Procalcitonin 0.06 ng/mL (0-0.5) 06/13/22 16:48 Urine Color Straw (Yellow) 06/13/22 09:50 Urine Appearance Clear (CLEAR) 06/13/22 09:50 Urine pH 6 (5-7) 06/13/22 09:50 Ur Specific [place] 1.010 (1.005-1.030) 06/13/22 09:50 Urine Protein 2+ (Negative) H 06/13/22 09:50 Urine Glucose (UA) Norm (Normal) 06/13/22 09:50 Urine Ketones Negative (Negative) 06/13/22 09:50 Urine Blood 2+ (Negative) H 06/13/22 09:50 Urine Nitrate Negative (Negative) 06/13/22 09:50 Urine Bilirubin Neg (Negative) 06/13/22 09:50 Urine Urobilinogen Norm mg/dL (Negative) 06/13/22 09:50 Ur Leukocyte Esterase Negative (Negative) 06/13/22 09:50 Urine RBC Rare /hpf (0-2) 06/13/22 09:50 Urine WBC None /hpf (0-5) 06/13/22 09:50 Ur Squamous Epith Cells Rare /hpf (0-5) 06/13/22 09:50 Amorphous Sediment Not Reportable 06/13/22 09:50 Urine Bacteria None /hpf (NONE) 06/13/22 09:50 Vitals Last Vital Signs Temp 97.7 F 06/14/22 04:00 Pulse 70 06/14/22 08:05 Resp 16 06/14/22 08:00 BP 110/68 06/14/22 04:00 Pulse Ox 95 06/14/22 08:00 O2 Del Method 06/14/22 08:00 O2 Flow Rate 2 06/14/22 08:00 Discharge Plan Discharge Patient Disposition: Home Condition: Stable Prescriptions: New sennosides-docusate sodium [Stool Softener-Laxative] 8.6-50 mg Tablet 1 tab PO DAILY Qty: 60 0RF amlodipine 10 mg Tablet 10 mg PO DAILY Qty: 9 2RF hydralazine 25 mg Tablet 25 mg PO TID Qty: 90 3RF albuterol sulfate 90 mcg/actuation HFA aerosol inhaler 2 inh inhalation Q8H PRN (Reason: shortness of breath or wheezing) Qty: 8.5 3RF Trelegy Ellipta 100-62.5-25 mcg blister with device 1 inh inhalation DAILY Qty: 60 4RF Continued atorvastatin 40 mg Tablet 80 mg PO BEDTIME 30 Days Qty: 30 3RF nitroglycerin [Nitrostat] 0.4 mg Tablet, Sublingual 0.4 mg SUBLINGUAL Q5M PRN (Reason: Chest Pain) 30 Days Qty: 30 1RF clopidogrel 75 mg tablet 75 mg PO DAILY Hold Instructions: Resume on 09/22/21. polyethylene glycol 3350 [Miralax] 17 gram powder in packet 17 g PO DAILY PRN (Reason: constipation) Qty: 30 0RF esomeprazole magnesium 40 mg capsule,delayed release(DR/EC) 40 mg PO DAILY aspirin 81 mg tablet,chewable 81 mg PO DAILY doxycycline hyclate 100 mg capsule 100 mg PO BID 10 Days Qty: 20 0RF albuterol sulfate 90 mcg/actuation HFA aerosol inhaler 2 inh INHALATION Q4H PRN (Reason: shortness of breath or wheezing) Qty: 18 0RF metoprolol tartrate 25 mg Tablet 25 mg PO Q12H 30 Days Qty: 90 3RF Rx Instructions: Hold if heart rate below 60 Changed propranolol 40 mg tablet 20 mg PO BID Qty: 60 0RF Rx Instructions: Hold if heart rate below 60 Discontinued budesonide-formoterol [Symbicort] 160-4.5 mcg/actuation HFA aerosol inhaler 2 puff INHALATION BID albuterol sulfate 90 mcg/actuation HFA aerosol inhaler 2 puff INHALATION Q6H PRN (Reason: Shortness Of Breath) Qty: 1 2RF lisinopril 10 mg tablet 10 mg PO DAILY prednisone 20 mg tablet 20 mg PO TID Qty: 15 0RF Rx Instructions: 1 p.o. 3 times daily x3 days, 1 p.o. twice daily x2 days, 1 p.o. daily x2 days Discharge Orders: Discharge Order (Routine); Ordered 06/14/22 Ordered By: Travon Springer Referrals: DatarHammad MD [Physician] - 2 weeks Adama Olmedo MD [Primary Care Provider] - Patient Instructions: Opioid Safety Discharge Attestations Time Spent in Discharge Care*: less than 30 min Status at Discharge: Cognitive status at discharge: cognitively intact , Behavioral status at discharge: cooperative , Quality Metrics Clinical Quality Measures [ No reported AMI, CVA or VTE this stay] Coding Level of Care Code Acute Chg FW DC note Diagnoses Acute exacerbation of chronic obstructive airways disease J44.1 Chronic kidney disease N18.9
--- NOTE | 2022-06-14 10:41 | PC.CHAP ---
Pastoral Care Encounter/Spiritual Assessment Type of Contact [] Declined rail maintenance worker visit [] Patient/Family/Request visit [] Outpatient visit [] Follow-up visit [] Physician referral [] Code/Alert [x] Routine visit [] Staff referral [] Actively dying [x] Patient sleeping [] Family support [] [] Out of room [] Palliative care [] [] Receiving care in room [] Pre-surgical visit [] Trauma [] Long length of stay [] ICU visit [] Other: Relational/Emotional Strength [] Patient feels connected with others/family/visitors/staff [] Distress [] Loneliness/isolation [] Abandonment Spirituality of Patient [] Person of Marlene [] Attends Mandaeism of their Marlene [] Believes in Prayer [] Reads Bible or Roman Catholic materials [] There are Spiritual issues to be addressed Shop Superintendent Interventions [] Prayer [] Active listening [] Non-anxious presence [] Spiritual/emotional support [] Crisis/trauma care [] Spiritual counseling [] Bereavement support [] Provided bereavement packet [] Provided Bible/devotional materials [] Provided toy/stuffed animal, coloring book to patient or family member [] Provided Communion [] Anointing/[place] [] Salvation [] Completed spiritual assessment [] Other: Impact on Illness or Injury [] Angry [] Fearful [] Anxious [] Often cries [] Exhaustion [] Unable to work [] Unable to attend congregation [] Unable to walk/stand [] Unable to read [] Unable to drive [] Unable to eat/drink [] Unable to sleep [] Unable to be with family [] Patient intubated [] Other: Summary Time spent with patient
[2022-06-14 11:06] LABS: Glucose Point of Care 176 mg/dL (70-110)
[2022-06-14] MEDS: insulin lispro 100 unit/1 mL SUBCUT (12:22)
--- NOTE | 2022-06-14 14:43 | PC.NURSE ---
Discharge follow up appointments, new medications and stopped medications discussed as well as went over oxygen again. Verbalized understanding.
== END 2022-06-14 14:45 | disposition home or self-care (01) ==
LOC: ER 09:35 → MEDSURG 13:50
PROVIDERS: Admitting Provider Internal Medicine; Emergency Provider Emergency Medicine; PCP Family Medicine; Visit Provider Internal Medicine
DX: J44.1 Chronic obstructive pulmonary disease with (acute) exacerbation (principal); I12.9 Hypertensive chronic kidney disease with stage 1 through stage 4 chronic kidney disease, or unspecified chronic kidney disease; N18.30 Chronic kidney disease, stage 3 unspecified; Z86.16 Personal history of COVID-19; Z95.5 Presence of coronary angioplasty implant and graft; Z87.891 Personal history of nicotine dependence
CPT/HCPCS: 36415; 36416; 36600; 71045; 80048; 80053; 81001; 82607; 82803; 82962; 83690; 83735; 84145; 84484; 85025; 85378; 86140; 93005; 94640; 94760; 96372; 96374; 96375; 99285; G0378; J0360; J0696; J1644; J1815; J3475; J7040; J7626

== ENCOUNTER 2023-03-22 18:39 | Observation (INO) | payer MEDICARE, MEDICAID, SELFPAY ==
[2023-03-22] VITALS (7 sets, daily range): BP systolic 115–155; BP diastolic 60–74; PULSE 67–87; RESP 19–28; TEMP 36.4–36.5; O2SAT 94–98; BMI 19.8
--- NOTE | 2023-03-22 19:07 | ED_ITS ---
HPI - Recheck/Abnormal Lab/Rx General: Chief Complaint: Recheck/Abnormal Lab/Rx Stated Complaint: Abnormal Labs Time Seen by Provider: 03/22/23 18:42 History of Present Illness: 87-year-old male presents emergency department chief complaint of reported abnormal labs patient is extremely hard of hearing he has no current complaints at this time denying any chest pain or shortness of breath abdominal pain or back pain allegedly patient had some lab work drawn today that revealed that he was anemic. Patient presented to the ER for further assessment and management. Review of Systems General: Reports: 10 or more systems reviewed and unremarkable except in HPI and below Const: Denies: fever(s), chills, fatigue or malaise Eyes: Denies: change in vision or blurry vision Card: Denies: chest pain or palpitations Resp: Denies: dyspnea or productive cough GI: Denies: abdominal pain, nausea or vomiting : Denies: flank pain Musc: Denies: extremity pain or extremity swelling Skin/Breast: Denies: rash or pruritus Neuro: Denies: headache(s) Psych: Denies: anxiety or depression Juan Carlos/Lymph: Denies: easy bleeding All/Imm: Denies: urticaria, throat swelling or facial swelling PFSH ED PFSH: Medical History (Updated 03/22/23 @ 21:15 by Ignacio Richmond) Acute exacerbation of chronic obstructive airways disease Chronic kidney disease, stage III (moderate) Cognitive impairment Constipation COPD (chronic obstructive pulmonary disease) Coronary artery disease COVID Hemorrhagic shock Hyperkalemia Hyperlipidemia Hypertension Non-ST elevation myocardial infarction (NSTEMI) SVT (supraventricular tachycardia) Surgical History Stented coronary artery 3 stents at [facility] 16 years ago Family History Denies family history of Clotting disorder Chronic kidney disease (CKD) Social History Smoking and tobacco status: former smoker Quit status (tobacco): has quit using tobacco Former quit date comment: Quit smoking few weeks ago Alcohol intake: never Substance/Drug Use: never Household members: family Housing: House Physical Exam Narrative: EXAM NARRATIVE: Patient is extremely hard of hearing however appears in no obvious acute distress. Const: COMMON NORMALS: no acute distress, patient oriented x3 and healthy appearing HENMT: COMMON NORMALS: normocephalic and atraumatic HEAD & SCALP: normocephalic and atraumatic Eye: COMMON NORMALS: Equal, round and reactive pupils present and EOMs intact bilaterally PUPIL: Yes Equal, round and reactive pupils present Neck/C-Spine: COMMON NORMALS: full ROM, supple and no JVD Lymph: LYMPHATIC: no lymphadenopathy noted Chest: COMMONS NORMALS: normal inspection of the chest and normal palpation of entire chest wall Resp: COMMON NORMALS: normal respiratory effort, No retractions and clear to auscultation bilaterally EFFORT & INSPECTION: Yes able to speak in complete sentences and Yes symmetric chest movement AUSCULTATION: clear to au scultation bilaterally Cardio: COMMON NORMALS: no JVD, regular rate and regular rhythm RATE: regular rate RHYTHM: regular rhythm GI: COMMON NORMALS: Normal to inspection, nondistended, normoactive bowel sounds present, Soft to palpation and non-tender INSPECTION: Yes normal to inspection PALPATION: Yes Soft to palpation : COMMON NORMALS: Yes no CVA tenderness BLADDER/KIDNEY EXAM: Yes no CVA tenderness Back/Pelvis: COMMON NORMALS: no CVA tenderness Extremity: COMMON NORMALS: normal to inspection and full ROM Neuro: COMMON NORMALS: patient oriented x3, CN's II-XII intact bilaterally, moves all extremities and no focal motor deficits Psych: COMMON NORMALS: mental status grossly normal, Normal thought process present, cooperative and normal affect THOUGHT PROCESS: Normal thought process present Skin: COMMON NORMALS: no rashes or lesions noted GENERAL SKIN EXAM: no rash es or lesions noted Course Vital Signs: Vital signs: Vital Signs Temperature 97.7 F 03/22/23 18:43 Pulse Rate 71 03/22/23 20:06 Respiratory Rate 19 H 03/22/23 20:06 Blood Pressure 123/68 03/22/23 20:06 Pulse Oximetry 98 03/22/23 20:06 Oxygen Delivery Me thod Nasal Cannula 03/22/23 20:06 Oxygen Flow Rate 2 03/22/23 20:06 MDM - Recheck/Abnormal Lab/Rx Medical Decision Making Due to patient's symptoms and condition we will be obtaining an IV with repeat basic lab work will continue to follow at this time based upon what I am witnessing this year either appear to be chronic anemia or a lab error. Patient's hemoglobin today was found to be at 5.2 hematocrit 18.6 patient did have positive Hemoccult microscopic noted no gross blood appreciated patient appears to be a chronic GI bleed as he is compensating quite well with current blood pressures in the 130s and pulse rate is in the 70s. Discussed the patient's case with Dr. Stover hospitalist is granted acceptance I also discussed the patient's case with the on-call general surgeon Dr. Orozco that has accepted to be placed on consultation. Patient will be transfused 2 units of packed red blood cells be placed underneath observation status. He remains in stable condition at this time. Lab Data 03/22/23 19:03/22/23 19: Laboratory Results WBC 10.4 10^3/uL (4.0-10.0) H 03/22/23 19: RBC 2.26 10^6/uL (4.1-5.3) L 03/22/23: Hgb 5.2 g/dL (11.7-16.6) L* 03/22/23 19: Hct 18.6 % (42.0-52.0) L* 03/22/23: MCV 82.3 fl (80-94) 03/22/23: MCH 23.0 pg (28.0-34.0) L 03/22/23: MCHC 28.0 g/dL (30.0-36.0) L 03/22/23: RDW 19.5 % (12.1-15.1) H 03/22/23: Plt Count 317 10^3/cmm (130-400) 03/22/23: MPV 10.9 fL (7.4-10.4) H 03/22/23: Neut % (Auto) 91.9 % 03/22/23: Lymph % (Auto) 3.8 % 03/22/23: [place] % (Auto) 1.6 % 03/22/23: Eos % (Auto) 0.2 % 03/22/23: Baso % (Auto) 0.3 % 03/22/23 Neut # (Auto) 9.52 10^3/uL (1.8-7.7) H 03/22/23 19:27 Lymph # (Auto) 0.4 10^3/uL (0.8-4.8) L 03/22/23 19:27 Fallon # (Auto) 0.2 10^3/uL (0.2-0.9) 03/22/23 19:27 Eos # (Auto) 0.0 10^3/uL (0.0-0.8) 03/22/23 19: Baso # (Auto) 0.0 10^3/uL (0.0-0.1) 03/22/23 19: Nucleated RBC % (auto) 1.4 % 03/22/23: Nucleated RBCs # 0.1 /100WBC 03/22/23 19: PT 15.40 SECONDS (12.1-14.9) H 03/22/23 19: INR 1.18 (0.8-1.2) 03/22/23 19: APTT 26.9 SECONDS (23.9-36.7) 03/22/23 19:27 Sodium 141 mmol/L (136-145) 03/22/23 19:27 Potassium 5.6 mmol/L (3.5-5.1) H 03/22/23 19:27 Chloride 108 mmol/L (98-107) H 03/22/23 19:27 Carbon Dioxide 21 mmol/L (22-29) L 03/22/23 19: Anion Gap 17.6 (5-19) 03/22/23 19:27 BUN 74 mg/dL (8-23) H 03/22/23 19:27 Creatinine 3.1 mg/dL (0.7-1.2) H 03/22/23 19:27 GFR Calculation Not Reportable 03/22/23 19: Glucose 148 mg/dL (65-115) H 03/22/23 19: Calculated Osmolality 317 mOsm/kg (285-295) H 03/22/23 19:27 Calcium 8.6 mg/dL (8.5-10.5) 03/22/23 19:27 Total Bilirubin 0.2 mg/dL (0.15-1.2) 03/22/23 19:27 AST 9 U/L (0-40) 03/22/23 19:27 ALT 9 U/L (0-41) 03/22/23 19:27 Alkaline Phosphatase 52 U/L (40-130) 03/22/23 19:27 NT-Pro-B Natriuret Pep 5903 pg/mL (0-450) H 03/22/23 19:27 Total Protein 5.9 g/dL (6.6-8.7) L 03/22/23 19:27 Albumin 3.6 g/dL (3.5-5.2) 03/22/23 19:27 Globulin 2.3 g/dL (1.3-4.6) 03/22/23 19:27 Blood Type O Positive 03/22/23 19:27 Rho(D) Type Positive 03/22/23 19:27 Antibody Screen Negative 03/22/23 19:27 Crossmatch See Detail 03/22/23 19:27 Discharge Plan Discharge Patient Disposition: Admitted As Inpatient Clinical Impression: Anemia, Chronic lower GI bleeding Condition: Stable Coding Level of Care Code ED Dental Laboratory Technician Apprentice for Rubén Hanna
[2023-03-22] MEDS: sodium chloride 0.9% 500 ML IV (19:41)
[2023-03-22 20:02] LABS: Basophils % 0.3 %; Eosinophils % 0.2 %; Lymphocytes # 0.4 10^3/uL (0.8-4.8); Lymphocytes % 3.8 %; Mean Corpuscular Volume 82.3 fl (80-94); Mean Platelet Volume 10.9 fL (7.4-10.4); Monocytes # 0.2 10^3/uL (0.2-0.9); Monocytes % 1.6 %; Neutrophils # 9.52 10^3/uL (1.8-7.7); Neutrophils % 91.9 %; Nucleated Red Blood Cells # 0.1 /100WBC; Nucleated Red Blood Cells % 1.4 %; Platelet Count 317 10^3/cmm (130-400); Red Blood Count 2.26 10^6/uL (4.1-5.3); Red Cell Distribution Width 19.5 % (12.1-15.1); White Blood Count 10.4 10^3/uL (4.0-10.0)
[2023-03-22 20:04] LABS: Hematocrit 18.6 % (42.0-52.0); Hemoglobin 5.2 g/dL (11.7-16.6)
[2023-03-22 20:19] LABS: INR 1.18 (0.8-1.2)
[2023-03-22 20:20] LABS: Partial Thromboplastin Time 26.9 SECONDS (23.9-36.7)
[2023-03-22 20:37] LABS: Alanine Aminotransferase 9 U/L (0-41); Albumin Level 3.6 g/dL (3.5-5.2); Alkaline Phosphatase 52 U/L (40-130); Anion Gap 17.6 (5-19); Aspartate Amino Transferase 9 U/L (0-40); Blood Urea Nitrogen 74 mg/dL (8-23); Calcium 8.6 mg/dL (8.5-10.5); Carbon Dioxide 21 mmol/L (22-29); Chloride 108 mmol/L (98-107); Globulin 2.3 g/dL (1.3-4.6); Glucose 148 mg/dL (65-115); NT Pro B Type Natriuretic Pept 5903 pg/mL (0-450); Osmolality Calculated 317 mOsm/kg (285-295); Potassium 5.6 mmol/L (3.5-5.1); Sodium 141 mmol/L (136-145); Total Bilirubin 0.2 mg/dL (0.15-1.2); Total Protein 5.9 g/dL (6.6-8.7)
--- NOTE | 2023-03-22 20:58 | PM.HP ---
Providers/Chief Complaint Admitting Physician: Trevor Stover MD Primary Care Provider: Adama Olmedo MD Chief Complaint: Abnormal Labs History of Present Illness Jimenez Green is a 87 year old male with a past medical history significant for HTN, CKD-III, COPD, SVT, HTN, CAD, and HLD who presents to the emergency department from nursing facility with abnormal labs. Upon evaluation, patient is extremely hard of hearing making history difficult and limited. He reports his hearing aides have been missing at his facility for the past three days. He denies any other complaints. Collateral from ED provider reports patient was found to be anemic on labs at the care home with a hemoglobin of 5.1 for which he was sent to the emergency department. Repeat blood work in the ED revealed a HGB of 5.2. Patient seems to deny any known blood loss, melena, or other bleeding problems. Denies shortness of breath, chest pain, dizziness, or lightheadedness. He is on dual antiplatelet therapy for what appears to be a remote history of cardiac stents placed at [facility]. Review of Systems Narrative: A complete review of systems was obtained and negative except for symptoms listed in the HPI. Medications/Allergies Home Medications Medication Instructions Recorded Confirmed Last Taken Type atorvastatin 40 mg tablet 80 mg PO BEDTIME 30 days #30 tabs 07/13/21 06/13/22 06/12/22 Rx nitroglycerin 0.4 mg sublingual 0.4 mg sublingual Q5M PRN Chest 07/13/21 06/13/22 06/11/22 Rx tablet (Nitrostat) Pain 30 days #30 tabs clopidogrel 75 mg tablet 75 mg PO DAILY 09/13/21 06/13/22 06/12/22 History polyethylene glycol 3350 17 gram 17 g PO DAILY PRN constipation #30 03/19/22 06/13/22 Unknown Rx oral powder packet (Miralax) ea albuterol sulfate 90 mcg/actuation 2 inh inhalation Q4H PRN shortness 06/11/22 06/13/22 Unknown Rx aerosol inhaler of breath or wheezing #18 grams aspirin 81 mg chewable tablet 81 mg PO DAILY 06/11/22 06/13/22 06/12/22 History esomeprazole magnesium 40 mg 40 mg PO DAILY 06/11/22 06/13/22 06/12/22 History capsule,delayed release albuterol sulfate 90 mcg/actuation 2 inh inhalation Q8H PRN shortness 06/14/22 Unknown Rx aerosol inhaler of breath or wheezing #8.5 grams amlodipine 10 mg tablet 10 mg PO DAILY #9 tabs 06/14/22 Unknown Rx fluticasone fur. 100 mcg-umeclid 1 inh inhalation DAILY #60 ea 06/14/22 Unknown Rx 62.5 mcg-vilant 25 mcg inhalat.powder (Trelegy Ellipta) hydralazine 25 mg tablet 25 mg PO TID #90 tabs 06/14/22 Unknown Rx methylprednisolone 4 mg tablets in See Rx Instructions PO .COMPLEX 06/14/22 Unknown Rx a dose pack (Medrol (Sumanth)) #21 ea metoprolol tartrate 25 mg tablet 25 mg PO Q12H 30 days #90 tabs 06/14/22 06/13/22 06/12/22 Rx propranolol 40 mg tablet 20 mg PO BID #60 tabs 06/14/22 06/13/22 06/12/22 Rx sennosides 8.6 mg-docusate sodium 1 tab PO DAILY #60 tabs 06/14/22 Unknown Rx 50 mg tablet (Stool Softener-Laxative) Allergies Allergy/AdvReac Type Severity Reaction Status Date / Time No Known Allergies Allergy Verified 03/22/23 18:51 PFSH Acute PFSH: Medical History Acute exacerbation of chronic obstructive airways disease Chronic kidney disease, stage III (moderate) Cognitive impairment Constipation COPD (chronic obstructive pulmonary disease) Coronary artery disease COVID Hemorrhagic shock Hyperkalemia Hyperlipidemia Hypertension Non-ST elevation myocardial infarction (NSTEMI) SVT (supraventricular tachycardia) Surgical History Stented coronary artery 3 stents at [facility] 16 years ago Family History Denies family history of Clotting disorder Chronic kidney disease (CKD) Social History Smoking and tobacco status: former smoker Quit status (tobacco): has quit using tobacco Former quit date comment: Quit smoking few weeks ago Alcohol intake: never Substance/Drug Use: never Household members: family Housing: House Vitals/I&O/Wt Last Vital Signs Temp 97.7 F 03/22/23 18:43 Pulse 71 03/22/23 20:06 Resp 19 H 03/22/23 20:06 BP 123/68 03/22/23 20:06 Pulse Ox 98 03/22/23 20:06 O2 Del Method Nasal Cannula 03/22/23 20:06 O2 Flow Rate 2 03/22/23 20:06 Weight last 48 hrs Weight 64.41 kg Physical Exam Const: COMMON NORMALS: alert GENERAL APPEARANCE: frail appearing ORIENTATION/CONSCIOUSNESS: Yes awake HENMT: COMMON NORMALS: normocephalic GENERAL EAR: hearing grossly impaired Eye: COMMON NORMALS: EOMs intact bilaterally and no scleral icterus Neck/C-Spine: COMMON NORMALS: supple and no JVD Resp: COMMON NORMALS: normal respiratory effort and No use of accessory muscles Cardio: COMMON NORMALS: S1 normal heart sound present, S2 normal heart sound present, No gallops present (Cardio), No clicks present (Cardio) and No rub (Cardio) GI: COMMON NORMALS: Normal to inspection, nondistended, normoactive bowel sounds present and non-tender Neuro: COMMON NORMALS: moves all extremities and no focal motor deficits Skin: COMMON NORMALS: no jaundice Data 03/22/23 19:27 03/22/23 19:27 A&P Assessment and plan (1) Anemia: Admission HGB 5.2 Transfuse 2 pRBC Start PPI IVP Q12H General surgery consulted by ED, appreciate recommendations NPO pending GS evaluation Trend hemoglobin Hold DAPT No NSAIDs (2) Chronic kidney disease, stage III (moderate): CKD stage III-IV w/ hyperkalemia Gentle IVF Avoid nephrotoxins Telemetry monitoring Repeat renal panel in AM (3) Hyperlipidemia: Continue statin Qualifiers: Hyperlipidemia type: mixed hyperlipidemia Qualified Code(s): E78.2 - Mixed hyperlipidemia (4) Hypertension: Hold Norvasc and hydralazine given GI bleed Monitor BP, reassess need for antihypertensives Qualifiers: Hypertension type: primary hypertension Qualified Code(s): I10 - Essential (primary) hypertension (5) Coronary artery disease: Continue statin Continue metoprolol Hold Plavix and aspirin (6) COPD (chronic obstructive pulmonary disease): Not in acute exacerbation Breathing treatment as needed Plan DVT ppx: SCD Attestations Medical Necessity Statement*: Patient presents with anemia felt to be GI in origin requiring transfusion and general surgery evaluation with expected hospitalization not to cross two midnights. Coding Level of Care Code Acute Code for g Fwd Diagnoses Anemia D64.9 Chronic kidney disease, stage III (moderate) N18.3 Hyperlipidemia E78.2 Hyperlipidemia type: mixed hyperlipidemia Hypertension I10 Hypertension type: primary hypertension Coronary artery disease I25.10 COPD (chronic obstructive pulmonary disease) J44.9
--- NOTE | 2023-03-22 21:26 | PC.NURSE ---
Verified [facility] unit# [id number] with Charge nurse Mary Grace Melendez RN.
[2023-03-22] MEDS: sodium chloride 0.9% 100 mL Bag 50 ML IV (21:34)
[2023-03-23] VITALS (15 sets, daily range): BP systolic 113–154; BP diastolic 59–84; PULSE 66–75; RESP 15–18; TEMP 36.3–36.8; O2SAT 95–99
[2023-03-23] MEDS: metoprolol tartrate 25 mg Tablet PO ×2 (00:42→12:01)
[2023-03-23] MEDS: sodium chloride 0.9% 1,000 ML 50 ML IV (00:42)
[2023-03-23] MEDS: pantoprazole 40 mg SDV IVP ×2 (00:42→11:59)
[2023-03-23 05:30] LABS: Basophils % 0.3 %; Hematocrit 31.8 % (42.0-52.0); Lymphocytes # 0.5 10^3/uL (0.8-4.8); Mean Corpuscular HGB Conc 28.3 g/dL (30.0-36.0); Mean Corpuscular Hemoglobin 24.1 pg (28.0-34.0); Mean Corpuscular Volume 85.3 fl (80-94); Mean Platelet Volume 10.7 fL (7.4-10.4); Monocytes # 0.3 10^3/uL (0.2-0.9); Monocytes % 4.1 %; Neutrophils # 5.71 10^3/uL (1.8-7.7); Neutrophils % 83.8 %; Nucleated Red Blood Cells # 0.2 /100WBC; Nucleated Red Blood Cells % 2.9 %; Platelet Count 280 10^3/cmm (130-400); Red Blood Count 3.73 10^6/uL (4.1-5.3); Red Cell Distribution Width 18.6 % (12.1-15.1); White Blood Count 6.8 10^3/uL (4.0-10.0)
[2023-03-23 05:57] LABS: Albumin Level 3.6 g/dL (3.5-5.2); Blood Urea Nitrogen 70 mg/dL (8-23); Calcium 8.5 mg/dL (8.5-10.5); Carbon Dioxide 19 mmol/L (22-29); Chloride 111 mmol/L (98-107); Glucose 129 mg/dL (65-115); Phosphorus 4.6 mg/dL (2.5-4.5); Sodium 143 mmol/L (136-145)
[2023-03-23 05:59] LABS: Anion Gap 19.1 (5-19); Potassium 6.1 mmol/L (3.5-5.1)
--- NOTE | 2023-03-23 06:37 | P.CONIM_ITS ---
Providers/Reason For Consult Consulting Physician/Specialty*: General surgery Reason for Consult*: GI bleed Attending Physician: Trevor Stover MD Primary Care Provider: Adama Olmedo MD History of Present Illness History of Present Illness Jimenez Green is a 87 year old male who was transported to our hospital after being found to have a low hemoglobin on routine labs on assisted. Patient is very hard of hearing, making an interview difficult. He denies any symptoms no abdominal pain. Has been admitted to our hospitalist team for further evaluation and blood transfusion. FOBT was negative in the emergency department. Review of Systems Narrative: Review of systems could not be completed, as patient is unable to collaborate with history taking. Medications/Allergies Home Medications Medication Instructions Recorded Confirmed Last Taken Type atorvastatin 40 mg tablet 80 mg PO BEDTIME 30 days #30 tabs 07/13/21 06/13/22 06/12/22 Rx nitroglycerin 0.4 mg sublingual 0.4 mg sublingual Q5M PRN Chest 07/13/21 06/13/22 06/11/22 Rx tablet (Nitrostat) Pain 30 days #30 tabs clopidogrel 75 mg tablet 75 mg PO DAILY 09/13/21 06/13/22 06/12/22 History polyethylene glycol 3350 17 gram 17 g PO DAILY PRN constipation #30 03/19/22 06/13/22 Unknown Rx oral powder packet (Miralax) ea albuterol sulfate 90 mcg/actuation 2 inh inhalation Q4H PRN shortness 06/11/22 06/13/22 Unknown Rx aerosol inhaler of breath or wheezing #18 grams aspirin 81 mg chewable tablet 81 mg PO DAILY 06/11/22 06/13/22 06/12/22 History esomeprazole magnesium 40 mg 40 mg PO DAILY 06/11/22 06/13/22 06/12/22 History capsule,delayed release albuterol sulfate 90 mcg/actuation 2 inh inhalation Q8H PRN shortness 06/14/22 Unknown Rx aerosol inhaler of breath or wheezing #8.5 grams amlodipine 10 mg tablet 10 mg PO DAILY #9 tabs 06/14/22 Unknown Rx fluticasone fur. 100 mcg-umeclid 1 inh inhalation DAILY #60 ea 06/14/22 Unknown Rx 62.5 mcg-vilant 25 mcg inhalat.powder (Trelegy Ellipta) hydralazine 25 mg tablet 25 mg PO TID #90 tabs 06/14/22 Unknown Rx methylprednisolone 4 mg tablets in See Rx Instructions PO .COMPLEX 06/14/22 Unknown Rx a dose pack (Medrol (Sumanth)) #21 ea metoprolol tartrate 25 mg tablet 25 mg PO Q12H 30 days #90 tabs 06/14/22 06/13/22 06/12/22 Rx propranolol 40 mg tablet 20 mg PO BID #60 tabs 06/14/22 06/13/22 06/12/22 Rx sennosides 8.6 mg-docusate sodium 1 tab PO DAILY #60 tabs 06/14/22 Unknown Rx 50 mg tablet (Stool Softener-Laxative) Allergies Allergy/AdvReac Type Severity Reaction Status Date / Time No Known Allergies Allergy Verified 03/22/23 18:51 Current Medications Generic Name Dose Route Start Last Admin Trade Name Freq PRN Reason Stop Dose Admin Sodium Chloride 1,000 mls @ 50 mls/hr 03/23/23 00:30 03/23/23 00:42 Sodium Chloride 0.9% IV 50 mls/hr .Q20H ROSAURA Administration Metoprolol Tartrate 25 mg 03/23/23 00:15 03/23/23 00:42 Metoprolol Tartrate 25 Mg Tablet PO 25 mg Q12H ROSAURA Administration Pantoprazole Sodium 40 mg 03/23/23 00:15 03/23/23 00:42 Pantoprazole 40 Mg Sdv IVP 40 mg Q12H ROSAURA Administration Sodium Chloride 50 ml 03/22/23 21:04 03/22/23 21:34 Sodium Chloride 0.9% 100 Ml Bag IV 03/23/23 21:04 50 ml PRN PRN Administration Blood transfusion prime and flush PFSH Acute PFSH: Medical History Acute exacerbation of chronic obstructive airways disease Chronic kidney disease, stage III (moderate) Cognitive impairment Constipation COPD (chronic obstructive pulmonary disease) Coronary artery disease COVID Hemorrhagic shock Hyperkalemia Hyperlipidemia Hypertension Non-ST elevation myocardial infarction (NSTEMI) SVT (supraventricular tachycardia) Surgical History Stented coronary artery 3 stents at [facility] 16 years ago Family History Denies family history of Clotting disorder Chronic kidney disease (CKD) Social History Smoking and tobacco status: former smoker Quit status (tobacco): has quit using tobacco Former quit date comment: Quit smoking few weeks ago Alcohol intake: never Substance/Drug Use: never Household members: family Housing: House Vitals/I&O/Wt Last Vital Signs Temp 97.5 F L 03/23/23 04:00 Pulse 67 03/23/23 05:16 Resp 17 03/23/23 04:00 BP 151/80 03/23/23 04:00 Pulse Ox 99 03/23/23 04:00 O2 Del Method Nasal Cannula 03/23/23 04:00 O2 Flow Rate 2 03/22/23 20:45 03/22/23 03/22/23 03/23/23 14:59 22:59 06:59 Intake Total 500 / 500 700 / 1200 Output Total 375 / 375 Balance 500 / 500 325 / 825 Weight last 48 hrs Weight 141 lb 5 oz Weight 142 lb Physical Exam Narrative: General : Patient is alert, severe hearing impairment. Lungs : Equal chest rise bilaterally, no use of accessory muscles, trachea is midline. CV : Rate and rhythm are normal. Abdomen : Soft, ND, NT, no g/r/m Rectal exam: Patient refused Data 03/23/23 04:53 03/23/23 04:53 A&P Assessment and plan (1) Chronic lower GI bleedin-year-old male who presents with chronic blood loss anemia with a hemoglobin l evel of 5.7, patient is stable upon arrival. Was transfused 2 units of PRBC in the ED and posttransfusion CBC shows a hemoglobin of 9. Patient is unable to provide a history due to severe hearing loss and unable to hear the examiner. Does not complain of any symptoms or other abdominal pain. There is no acute indication for endoluminal evaluation as patient does not have any active signs of bleeding. If there is a notable drop in the hemoglobin, consider obtaining a CTA of the abdomen to pinpointing the source of bleeding. Indication of hemodynamic changes of recurrent GI bleeding General surgery will remain available for a endoluminal evaluation. All other care appreciated by [facility] list team. Coding Level of Care Code 82188 Diagnoses Chronic lower GI bleeding K92.2
--- NOTE | 2023-03-23 07:19 | PC.PHAR ---
Addendum entered by Jesica Lemus 03/23/23 08:27: pts mar has symbicort 160-4.5mcg and troy gutierrezta 100-62.5-25mcg as ended on 03/15/23 Original Note: pt is from [facility]-arthur saxena from [facility] states she will fax mar and tar
[2023-03-23] MEDS: insulin regular-human 10 UNIT in SYRINGE 1 EACH IVP (09:55)
[2023-03-23] MEDS: propranolol 40 mg Tablet 20 MG PO ×2 (09:55→18:02)
[2023-03-23] MEDS: sennosides-docusate Tablet 1 TAB PO (09:55)
[2023-03-23] MEDS: dextrose 50% syringe 50 mL IVP (09:56)
--- NOTE | 2023-03-23 10:59 | P.PN_ITS ---
Subjective Subjective: Hemoglobin around 9 No active signs of bleeding Plan for endoscopy on hold Patient is very hard of hearing Mild crackles noted at base of the lungs We will give Lasix Currently on 2 L of oxygen Blood pressure stable Repeat BMP I have given him insulin and dextrose 50 amp Creatinine 2.9 Vitals/I&O/Wt Last Vital Signs Temp 98.0 F 03/23/23 08:00 Pulse 73 03/23/23 08:00 Resp 15 03/23/23 08:00 BP 149/74 03/23/23 08:00 Pulse Ox 97 03/23/23 08:00 O2 Del Method Nasal Cannula 03/23/23 07:57 O2 Flow Rate 2 03/23/23 07:57 03/22/23 03/23/23 03/23/23 22:59 06:59 14:59 Intake Total 500 / 500 700 / 1200 0.1 / 0.1 Output Total 375 / 375 Balance 500 / 500 325 / 825 0.1 / 0.1 Weight last 48 hrs Weight 64.098 kg Weight 64.41 kg Physical Exam Narrative: Crackles noted base of the lungs Currently on 2 L Very hard of hearing Patient is laying supine Lower extremity trace edema Abdomen soft Complexion is pale Nonfocal neuro exam Signs of fluid overload present Data 03/23/23 04:53 03/23/23 04:53 A&P Assessment and plan (1) Chronic lower GI bleeding: (2) SVT (supraventricular tachycardia): (3) Constipation: (4) Chronic kidney disease, stage III (moderate): (5) COPD (chronic obstructive pulmonary disease): (6) Coronary artery disease: (7) Anemia: (8) Acute exacerbation of CHF (congestive heart failure): (9) Hyperkalemia: Plan Chronic normocytic anemia Could be anemia of chronic disease No active GI bleed Plan for endoscopy on hold I will let patient eat renal diet Continue Protonix Chronic kidney disease creatinine around baseline Hyperkalemia: Given calcium gluconate, Kayexalate insulin and dextrose 50 Check BMP again in the evening Hyperkalemia treatment given 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 History of hypertension: Optimize antihypertensive regimen Stop IV fluids, will give IV Lasix Acute preserved ejection fraction heart failure exacerbation related to blood transfusion and IV fluids, give Lasix today, Chronic hypoxia requires 2 L of oxygen No active exacerbation of COPD Full code VTE prophylaxis SCDs Reviewed previous records Previous colonoscopy was done in 2019 when he had GI bleed which showed diverticulosis related bleed No malignancy notified on pathology report for acute colitis with microscopic changes of ischemic changes, pseudomembrane was noted as well Attestations Medical Necessity Statement*: Continue medical management possible discharge tomorrow Diagnoses Chronic lower GI bleeding K92.2 SVT (supraventricular tachycardia) I47.1 Constipation K59.00 Chronic kidney disease, stage III (moderate) N18.3 COPD (chronic obstructive pulmonary disease) J44.9 Coronary artery disease I25.10 Anemia D64.9 Acute exacerbation of CHF (congestive heart failure) I50.9 Hyperkalemia E87.5
[2023-03-23 11:40] LABS: Anion Gap 15.8 (5-19); Blood Urea Nitrogen 65 mg/dL (8-23); Calcium 8.4 mg/dL (8.5-10.5); Carbon Dioxide 19 mmol/L (22-29); Chloride 111 mmol/L (98-107); Glucose 118 mg/dL (65-115); Osmolality Calculated 312 mOsm/kg (285-295); Potassium 4.8 mmol/L (3.5-5.1); Sodium 141 mmol/L (136-145)
[2023-03-23] MEDS: FUROsemide 10 mg/mL SDV 4mL 40 MG IVP (11:59)
[2023-03-23] MEDS: sodium polystyrene sulfonate 15 gm/60 mL Btl PO ×2 (12:00)
[2023-03-23] MEDS: lactulose oral liq 20 gm/30 mL UDC 10 GM PO (12:00)
[2023-03-23] MEDS: calcium gluconate 0.9% NaCL 1 GM/50 ML PREMIX IV (12:01)
[2023-03-23] MEDS: sodium bicarbonate 650 mg Tablet PO ×2 (16:14→20:01)
[2023-03-23] MEDS: atorvastatin 40 mg Tablet 80 MG PO (20:01)
[2023-03-24] VITALS (10 sets, daily range): BP systolic 120–148; BP diastolic 56–75; PULSE 61–104; RESP 16–18; TEMP 20.1–37; O2SAT 90–99
[2023-03-24] MEDS: metoprolol tartrate 25 mg Tablet PO ×2 (00:13→12:00)
[2023-03-24] MEDS: pantoprazole 40 mg SDV IVP ×2 (00:14→12:00)
[2023-03-24 05:17] LABS: Basophils # 0.1 10^3/uL (0.0-0.1); Basophils % 0.9 %; Eosinophils # 0.2 10^3/uL (0.0-0.8); Eosinophils % 1.9 %; Hematocrit 27.8 % (42.0-52.0); Hemoglobin 8.1 g/dL (11.7-16.6); Lymphocytes % 8.9 %; Mean Corpuscular HGB Conc 29.1 g/dL (30.0-36.0); Mean Corpuscular Hemoglobin 24.5 pg (28.0-34.0); Mean Platelet Volume 10.2 fL (7.4-10.4); Monocytes % 9.2 %; Neutrophils # 8.33 10^3/uL (1.8-7.7); Neutrophils % 76.4 %; Nucleated Red Blood Cells # 0.1 /100WBC; Platelet Count 228 10^3/cmm (130-400); Red Blood Count 3.31 10^6/uL (4.1-5.3); Red Cell Distribution Width 19.2 % (12.1-15.1); White Blood Count 10.9 10^3/uL (4.0-10.0)
[2023-03-24 06:20] LABS: Blood Urea Nitrogen 58 mg/dL (8-23); Calcium 8.3 mg/dL (8.5-10.5); Carbon Dioxide 24 mmol/L (22-29); Chloride 110 mmol/L (98-107); Glucose 86 mg/dL (65-115); Osmolality Calculated 313 mOsm/kg (285-295); Sodium 144 mmol/L (136-145)
[2023-03-24] MEDS: propranolol 40 mg Tablet 20 MG PO ×2 (10:11→18:29)
[2023-03-24] MEDS: sodium bicarbonate 650 mg Tablet PO ×3 (10:11→20:48)
[2023-03-24] MEDS: sennosides-docusate Tablet 1 TAB PO (10:12)
--- NOTE | 2023-03-24 11:15 | PM.PN ---
Subjective Subjective: Drop of hemoglobin noted today hemodynamically stable Patient is bleeding from his elbow, macerated skin ulcer Vitals/I&O/Wt Last Vital Signs Temp 68.1 F L 03/24/23 11:08 Pulse 66 03/24/23 11:08 Resp 18 03/24/23 11:08 BP 120/62 03/24/23 11:08 Pulse Ox 96 03/24/23 11:08 O2 Del Method Nasal Cannula 03/24/23 11:08 O2 Flow Rate 2 03/24/23 08:16 03/23/23 03/24/23 03/24/23 22:59 06:59 14:59 Intake Total 240 / 933.433 240 / 240 Balance 240 / 533.433 240 / 240 Weight last 48 hrs Weight 73.164 kg Weight 64.098 kg Weight 64.41 kg Physical Exam Narrative: Patient is laying supine No active bleeding at the time of evaluation around elbow ulcer S1, S2 Abdomen soft Clinically patient looks euvolemic eomi , PERRLA Hard of hearing Data 03/24/23 04:37 03/24/23 05:43 A&P Assessment and plan (1) Hyperkalemia: (2) Acute exacerbation of CHF (congestive heart failure): (3) Chronic lower GI bleeding: (4) Constipation: (5) Chronic kidney disease, stage III (moderate): (6) Hypertension: Qualifiers: Hypertension type: primary hypertension Qualified Code(s): I10 - Essential (primary) hypertension (7) Anemia: Plan Acute on chronic shoulder GI bleed Patient had colonoscopy in 2019 previous report showed signs of ischemic changes no sign of malignancy as per pathology report Drop in hemoglobin noted today Hemodynamic stable Chronic kidney disease: Anemia of chronic disease? Hyperkalemia: Improved Patient will definitely need nephrology consultation outpatient Urine output around 400 mL No signs of acidosis or hyperkalemia No acute indication for dialysis Full code renal diet Attestations Medical Necessity Statement*: clark roy Diagnoses Hyperkalemia E87.5 Acute exacerbation of CHF (congestive heart failure) I50.9 Chronic lower GI bleeding K92.2 Constipation K59.00 Chronic kidney disease, stage III (moderate) N18.3 Hypertension I10 Hypertension type: primary hypertension Anemia D64.9
--- NOTE | 2023-03-24 17:23 | PM.CONSULT ---
Providers/Reason For Consult Consulting Physician/Specialty*: [place]/Nephrology Reason for Consult*: CKD Attending Physician: Travon Springer MD Primary Care Provider: Adama Olmedo MD History of Present Illness History of Present Illness Jimenez Green is a 87 year old male with PMH of HTN , CKD-3, COPD was sent to ED from [facility] due to abnormal labs. Pt was found to be anemic with hb 5.2.He recieved blood transfusions and hb is at 8.1 currently .Also noted to have Cr of 3.1 on presentation and on review of prior labs , Pts baseline Cr in the range of 2-3 . Renal US ordered . 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 Review of Systems Narrative: unable to obtain due to hard of hearing Medications/Allergies Home Medications Medication Instructions Recorded Confirmed Last Taken Type clopidogrel 75 mg tablet 75 mg PO DAILY@09/13/21 03/23/23 06/12/22 History polyethylene glycol 3350 17 gram 17 g PO DAILY PRN constipation #30 03/19/22 03/23/23 Unknown Rx oral powder packet (Miralax) ea aspirin 81 mg chewable tablet 81 mg PO DAILY@06/11/22 03/23/23 06/12/22 History esomeprazole magnesium 40 mg 40 mg PO DAILY@06/11/22 03/23/23 06/12/22 History capsule,delayed release hydralazine 25 mg tablet 25 mg PO TID #90 tabs 06/14/22 03/23/23 Unknown Rx sennosides 8.6 mg-docusate sodium 1 tab PO DAILY #60 tabs 06/14/22 03/23/23 Unknown Rx 50 mg tablet (Stool Softener-Laxative) acetaminophen 325 mg tablet 650 mg PO Q6H PRN Pain 03/23/23 03/23/23 Unknown History (Tylenol) albuterol sulfate 90 mcg/actuation 2 puff inhalation Q6H PRN Wheezing 03/23/23 03/23/23 Unknown History aerosol inhaler amlodipine 10 mg tablet 10 mg PO DAILY@03/23/23 03/23/23 Unknown History atorvastatin 40 mg tablet 40 mg PO DAILY@03/23/23 03/23/23 Unknown History bisacodyl 10 mg rectal suppository 10 mg OH DAILY PRN Constipation 03/23/23 03/23/23 Unknown History (Dulcolax (bisacodyl)) budesonide 0.25 mg/2 mL suspension 0.25 mg inhalation BID 03/23/23 03/23/23 Unknown History for nebulization ipratropium 0.5 mg-albuterol 3 mg 3 ml inhalation TID 03/23/23 03/23/23 Unknown History (2.5 mg base)/3 mL nebulization soln lisinopril 10 mg tablet 10 mg PO DAILY@07 03/23/23 03/23/23 Unknown History prednisone 20 mg tablet 40 mg PO DAILY 03/23/23 03/23/23 Unknown History propranolol 40 mg tablet 40 mg PO BID 03/23/23 03/23/23 Unknown History Allergies Allergy/AdvReac Type Severity Reaction Status Date / Time No Known Allergies Allergy Verified 03/23/23 07:56 Current Medications Generic Name Dose Route Start Last Admin Trade Name Freq PRN Reason Stop Dose Admin Atorvastatin Calcium 80 mg 03/23/23 21:00 03/23/23 20:01 Atorvastatin 40 Mg Tablet PO 80 mg BEDTIME ROSAURA Administration Metoprolol Tartrate 25 mg 03/23/23 00:15 03/24/23 12:00 Metoprolol Tartrate 25 Mg Tablet PO 25 mg Q12H ROSAURA Administration Pantoprazole Sodium 40 mg 03/23/23 00:15 03/24/23 12:00 Pantoprazole 40 Mg Sdv IVP 40 mg Q12H ROSAURA Administration Propranolol HCl 20 mg 03/23/23 09:00 03/24/23 10:11 Propranolol 40 Mg Tablet PO 20 mg BID ROSAURA Administration Senna/Docusate Sodium 1 tab 03/23/23 09:00 03/24/23 10:12 Sennosides-Docusate Tablet PO 1 tab DAILY ROSAURA Administration Sodium Bicarbonate 650 mg 03/23/23 15:00 03/24/23 16:38 Sodium Bicarbonate 650 Mg Tablet PO 650 mg TID ROSAURA Administration PFSH Acute PFSH: Medical History (Updated 03/23/23 @ 11:06 by Travon Springer MD) Acute exacerbation of chronic obstructive airways disease Chronic kidney disease, stage III (moderate) Cognitive impairment Constipation COPD (chronic obstructive pulmonary disease) Coronary artery disease COVID Hemorrhagic shock Hyperkalemia Hyperlipidemia Hypertension Non-ST elevation myocardial infarction (NSTEMI) SVT (supraventricular tachycardia) Surgical History Stented coronary artery 3 stents at [facility] 16 years ago Family History Denies family history of Clotting disorder Chronic kidney disease (CKD) Social History Smoking and tobacco status: former smoker Quit status (tobacco): has quit using tobacco Former quit date comment: Quit smoking few weeks ago Alcohol intake: never Substance/Drug Use: never Household members: family Housing: House Vitals/I&O/Wt Last Vital Signs Temp 97.5 F L 03/24/23 16:00 Pulse 61 03/24/23 16:00 Resp 17 03/24/23 16:00 BP 142/72 03/24/23 16:00 Pulse Ox 99 03/24/23 16:00 O2 Del Method Nasal Cannula 03/24/23 16:00 O2 Flow Rate 2 03/24/23 08:16 03/24/23 03/24/23 03/24/23 06:59 14:59 22:59 Intake Total 720 / 720 Balance 720 / 720 Weight last 48 hrs Weight 73.164 kg Weight 64.098 kg Weight 64.41 kg Physical Exam Narrative: awake , alert no distress PEERLA S1S2 RRR Lungs clear leigh ann No edema Data 03/24/23 04:37 03/24/23 05:43 A&P Assessment and plan (1) Chronic kidney disease, stage III (moderate): 1. CKD 3/4 : Baseline Cr 2-3 range , Cr 3.1 on presenation. 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 METABOLIC ACIDOSIS : Improved 3. Hyperkalemia : improved 4. MBD : Ordered vitamin d and PTH levels 5. Anemia : s/p tranfusions , will order DEVON Consult Attestations Medical Necessity Statement: per medicine Coding Level of Care Code Acute Code for Chg Fwd Diagnoses Chronic kidney disease, stage III (moderate) N18.3
[2023-03-24] MEDS: atorvastatin 40 mg Tablet 80 MG PO (20:48)
--- NOTE | 2023-03-24 21:38 | US_ITS ---
WS: [id number] RENAL ULTRASOUND HISTORY: ckd COMPARISON: None available. TECHNIQUE: 2-D and color Doppler imaging of the kidney submitted. Right kidney: 9.1 cm x 4.3 cm x 4.6 cm. Cortex: 0.8 cm Mild renal atrophy with cortical thinning. Renal cyst upper pole measures 2.4 x 1.8 x 2.2 cm. No hydr onephrosis. No solid mass. Left kidney: 9.2 cm x 4.5 cm x 4.3 cm. Cortex: 1.2 cm Very mild renal atrophy. Normal cortex. Upper pole cyst measures 3.3 x 3.1 x 3.9 cm. There is a small er cortical cyst in the mid kidney. Aorta: Normal. Urinary Bladder: Well-distended urinary bladder. Bilateral ureteral jets are identified. Patient was unable to void during this examination. US/US renal BI* [id number] IMPRESSION: 1. Bilateral renal cysts. No renal mass. 2. No renal obstruction. 3. Normally distended urinary bladder with bilateral ureteral jets. Patient wa s unable to void the time of the examination.
[2023-03-24] MEDS: epoetin alfa 1000 Unit/0.05 mL (ESRD) 20000 UNIT SUBCUT (23:37)
[2023-03-25] MEDS: metoprolol tartrate 25 mg Tablet PO ×2 (00:32→11:59)
[2023-03-25] MEDS: pantoprazole 40 mg SDV IVP (00:32)
[2023-03-25 03:31] VITALS: BP 149/70; PULSE 64; RESP 16; TEMP 36.4; O2SAT 98
[2023-03-25 04:58] LABS: Basophils # 0.1 10^3/uL (0.0-0.1); Basophils % 0.6 %; Eosinophils # 0.3 10^3/uL (0.0-0.8); Eosinophils % 2.2 %; Hematocrit 29.8 % (42.0-52.0); Hemoglobin 8.6 g/dL (11.7-16.6); Lymphocytes # 1.2 10^3/uL (0.8-4.8); Lymphocytes % 8.8 %; Mean Corpuscular HGB Conc 28.9 g/dL (30.0-36.0); Mean Corpuscular Hemoglobin 24.1 pg (28.0-34.0); Mean Corpuscular Volume 83.5 fl (80-94); Mean Platelet Volume 10.2 fL (7.4-10.4); Monocytes # 1.2 10^3/uL (0.2-0.9); Monocytes % 9.1 %; Neutrophils # 10.15 10^3/uL (1.8-7.7); Neutrophils % 76.5 %; Nucleated Red Blood Cells # 0.1 /100WBC; Nucleated Red Blood Cells % 0.5 %; Platelet Count 230 10^3/cmm (130-400); Red Blood Count 3.57 10^6/uL (4.1-5.3); Red Cell Distribution Width 18.8 % (12.1-15.1); White Blood Count 13.3 10^3/uL (4.0-10.0)
[2023-03-25 05:23] LABS: Anion Gap 12.9 (5-19); Blood Urea Nitrogen 50 mg/dL (8-23); Calcium 8.3 mg/dL (8.5-10.5); Carbon Dioxide 28 mmol/L (22-29); Chloride 108 mmol/L (98-107); Glucose 80 mg/dL (65-115); Osmolality Calculated 310 mOsm/kg (285-295); Potassium 4.9 mmol/L (3.5-5.1); Sodium 144 mmol/L (136-145)
[2023-03-25 05:29] VITALS: PULSE 62
[2023-03-25 05:33] LABS: Calcium 8.4 mg/dL (8.5-10.5); Parathyroid Hormone 121.9 pg/mL (15-65)
[2023-03-25 05:37] LABS: 25 Hydroxy Vitamin D 25 ng/mL (30-100)
[2023-03-25 07:21] VITALS: BP 150/71; PULSE 63; RESP 18; TEMP 36.4; O2SAT 97
[2023-03-25 08:38] VITALS: PULSE 73; RESP 17; O2SAT 98
[2023-03-25] MEDS: sodium bicarbonate 650 mg Tablet PO (09:29)
[2023-03-25] MEDS: sennosides-docusate Tablet 1 TAB PO (09:29)
[2023-03-25] MEDS: propranolol 40 mg Tablet 20 MG PO (09:29)
--- NOTE | 2023-03-25 10:09 | P.DS_ITS ---
Discharge Providers Date of Admission: 03/22/23 22:14 Date of Discharge: March 25, 2023 Attending Provider at Admission: Trevor Stover MD Attending Provider at Discharge: Travon Springer MD Primary Care Provider: Adama Olmedo MD Diagnoses at Discharge Discharge Diagnosis (1) Chronic kidney disease, stage III (moderate): Status: Acute Reason for Visit Reason for Visit: Abnormal Labs Hospital Course Hospital Course 87-year-old male with history of chronic kidney disease, dyslipidemia, coronary disease presented from the care home for abnormal lab value of hemoglobin 5.3 he was given blood transfusion which improved his hemoglobin up to 9, general surgery was consulted, there was no active signs of bleed decision was made to monitor him during hospitalization, he is hemoglobin remained stable he remained hemodynamically stable, he does have chronic kidney disease and metabolic acidosis for which she required bicarb I did consult nephro who recommended outpatient follow-up, I have personally called dialysis center and they have asked for referral which I have arranged, I will add bicarb, hold lisinopril and aspirin, continue Plavix Added Protonix First hypertension I have increased the dose of hydralazine, amlodipine was added as well along metoprolol, lisinopril discontinued Physical Exam Narrative: Patient is very hard of hearing GCS 15 Nonfocal neuro exam Elbow bleeding stopped Hemodynamic stable Currently on 2 L Nonfocal neuro exam Discharge Data Studies Completed and Pending Completed Studies During Hospitalization Category Date Time Status US renal BI* [id number] Routine Ultrasound 03/24/23 21:38 Completed Pending at discharge Category Date Time Status CDIFF [Clostridioides Difficile PCR] Routine Lab 03/23/23 11:08 Uncollected Fecal Occult Blood [Immunochemical Fecal OCB] Stat Lab 03/22/23 20:10 Uncollected Radiology Impressions Renal Ultrasound 03/24/23 21:38 IMPRESSION: 1. Bilateral renal cysts. No renal mass. 2. No renal obstruction. 3. Normally distended urinary bladder with bilateral ureteral jets. Patient was unable to void the time of the examination. Laboratory Results WBC 13.3 10^3/uL (4.0-10.0) H 03/25/23 04:23 RBC 3.57 10^6/uL (4.1-5.3) L 03/25/23 04:23 Hgb 8.6 g/dL (11.7-16.6) L 03/25/23 04: Hct 29.8 % (42.0-52.0) L 03/25/23 04: MCV 83.5 fl (80-94) 03/25/23 04: MCH 24.1 pg (28.0-34.0) L 03/25/23 04: MCHC 28.9 g/dL (30.0-36.0) L 03/25/23 04: RDW 18.8 % (12.1-15.1) H 03/25/23 04:23 Plt Count 230 10^3/cmm (130-400) 03/25/23 04: MPV 10.2 fL (7.4-10.4) 03/25/23 04: Neut % (Auto) 76.5 % 03/25/23 04: Lymph % (Auto) 8.8 % 03/25/23 04: [place] % (Auto) 9.1 % 03/25/23 04: Eos % (Auto) 2.2 % 03/25/23 04: Baso % (Auto) 0.6 % 03/25/23 04: Neut # (Auto) 10.15 10^3/uL (1.8-7.7) H 03/25/23 04: Lymph # (Auto) 1.2 10^3/uL (0.8-4.8) 03/25/23 04: [place] # (Auto) 1.2 10^3/uL (0.2-0.9) H 03/25/23 04: Eos # (Auto) 0.3 10^3/uL (0.0-0.8) 03/25/23 04: Baso # (Auto) 0.1 10^3/uL (0.0-0.1) 03/25/23 04: Nucleated RBC % (auto) 0.5 % 03/25/23 04: Nucleated RBCs # 0.1 /100WBC 03/25/23 04: PT 15.40 SECONDS (12.1-14.9) H 03/22/23 19:27 INR 1.18 (0.8-1.2) 03/22/23 19:27 APTT 26.9 SECONDS (23.9-36.7) 03/22/23 19:27 Sodium 144 mmol/L (136-145) 03/25/23 04:23 Potassium 4.9 mmol/L (3.5-5.1) 03/25/23 04:23 Chloride 108 mmol/L (98-107) H 03/25/23 04:23 Carbon Dioxide 28 mmol/L (22-29) 03/25/23 04:23 Anion Gap 12.9 (5-19) 03/25/23 04:23 BUN 50 mg/dL (8-23) H 03/25/23 04:23 Creatinine 2.7 mg/dL (0.7-1.2) H 03/25/23 04:23 GFR Calculation Not Reportable 03/25/23 04:23 Glucose 80 mg/dL (65-115) 03/25/23 04:23 Calculated Osmolality 310 mOsm/kg (285-295) H 03/25/23 04:23 Calcium 8.3 mg/dL (8.5-10.5) L 03/25/23 04:23 Phosphorus 4.6 mg/dL (2.5-4.5) H 03/23/23 04:53 Total Bilirubin 0.2 mg/dL (0.15-1.2) 03/22/23 19:27 AST 9 U/L (0-40) 03/22/23 19:27 ALT 9 U/L (0-41) 03/22/23 19:27 Alkaline Phosphatase 52 U/L (40-130) 03/22/23 19:27 NT-Pro-B Natriuret Pep 5903 pg/mL (0-450) H 03/22/23 19:27 Total Protein 5.9 g/dL (6.6-8.7) L 03/22/23 19:27 Albumin 3.6 g/dL (3.5-5.2) 03/23/23 04:53 Globulin 2.3 g/dL (1.3-4.6) 03/22/23 19:27 25-OH Vitamin D Total 25 ng/mL (30-100) L 03/25/23 04:23 PTH Intact 121.9 pg/mL (15-65) H 03/25/23 04:23 Calcium (PTH Intact) 8.4 mg/dL (8.5-10.5) L 03/25/23 04:23 Blood Type O Positive 03/22/23 19:27 Rho(D) Type Positive 03/22/23 19:27 Antibody Screen Negative 03/22/23 19:27 Crossmatch See Detail 03/22/23 19:27 Vitals Last Vital Signs Temp 97.6 F 03/25/23 07:21 Pulse 73 03/25/23 08:38 Resp 17 03/25/23 08:38 BP 150/71 03/25/23 07:21 Pulse Ox 98 03/25/23 08:38 O2 Del Method Nasal Cannula 03/25/23 07:21 O2 Flow Rate 2 03/25/23 08:38 Discharge Plan Discharge Patient Disposition: Xfer SNF Condition: Stable Prescriptions: New sodium bicarbonate 650 mg Tablet 650 mg PO DAILY Qty: 30 0RF pantoprazole [Protonix] 40 mg tablet,delayed release (DR/EC) 40 mg PO BID 14 Days Qty: 28 0RF amlodipine 10 mg tablet 10 mg PO DAILY Qty: 30 0RF Continued polyethylene glycol 3350 [Miralax] 17 gram powder in packet 17 g PO DAILY PRN (Reason: constipation) Qty: 30 0RF esomeprazole magnesium 40 mg capsule,delayed release(DR/EC) 40 mg PO DAILY@07 sennosides-docusate sodium [Stool Softener-Laxative] 8.6-50 mg Tablet 1 tab PO DAILY Qty: 60 0RF ipratropium-albuterol 0.5 mg-3 mg(2.5 mg base)/3 mL solution for nebulization 3 ml INHALATION TID amlodipine 10 mg tablet 10 mg PO DAILY@07 Dulcolax (bisacodyl) 10 mg Suppository 10 mg [place] DAILY PRN (Reason: Constipation) Rx Instructions: if no bm for 3 days budesonide 0.25 mg/2 mL suspension for nebulization 0.25 mg inhalation BID albuterol sulfate 90 mcg/actuation HFA aerosol inhaler 2 puff INHALATION Q6H PRN (Reason: Wheezing) propranolol 40 mg tablet 40 mg PO BID Tylenol 325 mg Tablet 650 mg PO Q6H PRN (Reason: Pain) Changed hydralazine 25 mg Tablet 50 mg PO TID Qty: 90 3RF Held clopidogrel 75 mg tablet 75 mg PO DAILY@07 Hold Instructions: Resume on 03/28/23. Discontinued aspirin 81 mg tablet,chewable 81 mg PO DAILY@07 atorvastatin 40 mg tablet 40 mg PO DAILY@07 lisinopril 10 mg tablet 10 mg PO DAILY@07 prednisone 20 mg tablet 40 mg PO DAILY Rx Instructions: start date 03/22/23 end date 03/26/23 Discharge Orders: Discharge Order (Routine); Ordered 03/25/23 Ordered By: Travon Springer Referrals: Sidra Gee MD [Referring] - 2 weeks (ckdz) Adama Olmedo MD [Primary Care Provider] - Patient Instructions: Opioid Safety Discharge Attestations Time Spent in Discharge Care*: greater than 30 min Status at Discharge: Cognitive status at discharge: cognitively intact , Behavioral status at discharge: cooperative , Quality Metrics Clinical Quality Measures [ No reported AMI, CVA or VTE this stay] Coding Level of Care Code Acute Code for Chg Fwd Diagnoses Chronic kidney disease, stage III (moderate) N18.3
[2023-03-25 11:25] VITALS: BP 138/64; PULSE 67; RESP 18; TEMP 36.6; O2SAT 96
== END 2023-03-25 11:45 | disposition skilled nursing facility (03) ==
LOC: ER 21:29 → MEDSURG 22:14
PROVIDERS: Hospitalist; Admitting Provider Internal Medicine; Emergency Provider Emergency Medicine; PCP Family Medicine; Visit Provider Internal Medicine
DX: I13.0 Hypertensive heart and chronic kidney disease with heart failure and stage 1 through stage 4 chronic kidney disease, or unspecified chronic kidney disease (principal); N18.30 Chronic kidney disease, stage 3 unspecified; I50.9 Heart failure, unspecified; K92.2 Gastrointestinal hemorrhage, unspecified; D50.0 Iron deficiency anemia secondary to blood loss (chronic); I47.1 Supraventricular tachycardia; K59.00 Constipation, unspecified; J44.9 Chronic obstructive pulmonary disease, unspecified; I25.10 Atherosclerotic heart disease of native coronary artery without angina pectoris; I25.2 Old myocardial infarction; E78.2 Mixed hyperlipidemia; E87.5 Hyperkalemia; H91.90 Unspecified hearing loss, unspecified ear; Z79.82 Long term (current) use of aspirin; Z79.01 Long term (current) use of anticoagulants; Z86.16 Personal history of COVID-19; Z87.891 Personal history of nicotine dependence; Z95.5 Presence of coronary angioplasty implant and graft
CPT/HCPCS: 36415; 36430; 76770; 80048; 80053; 80069; 82306; 82310; 83880; 83970; 85025; 85610; 85730; 86850; 86900; 86920; 96361; 96372; 96374; 96375; 99254; 99285; C9113; G0378; J0610; J1815; J1940; J7030; J7040; P9016; Q3014; Q4081

== ENCOUNTER 2023-04-20 17:30 | Inpatient (IN) | payer MEDICARE, MEDICAID, SELFPAY ==
[2023-04-20 17:52] VITALS: BP 138/59; PULSE 84; RESP 16; TEMP 36.7; O2SAT 96
--- NOTE | 2023-04-20 18:18 | W.ED.ABDPA2 ---
HPI - Abdominal Pain General: Chief Complaint: Abdominal Pain Stated Complaint: Abd Pain Time Seen by Provider: 04/20/23 17:32 Limitations: other (extremely hard of hearing) History of Present Illness: She was brought to the ER by EMS for low pelvic abdominal pain. This started about a week ago. Patient states it hurts every time he tries to urinate. He says he has not had any sleep in 3 days because of the pain. Patient cannot understand lips and cannot hear even if you are talking very loudly directly in his ear. Review of Systems General: Reports: ROS unobtainable due to medical condition (Patient is extremely extremely hard of hearing) PFS ED PFSH: Medical History Acute exacerbation of CHF (congestive heart failure) Acute exacerbation of chronic obstructive airways disease Anemia Chronic kidney disease, stage III (moderate) Chronic lower GI bleeding Cognitive impairment Constipation COPD (chronic obstructive pulmonary disease) Coronary artery disease COVID Hemorrhagic shock Hyperkalemia Hyperlipidemia Hypertension Non-ST elevation myocardial infarction (NSTEMI) SVT (supraventricular tachycardia) Surgical History Stented coronary artery 3 stents at [facility] 16 years ago Family History Denies family history of Clotting disorder Chronic kidney disease (CKD) Social History Smoking and tobacco status: former smoker Quit status (tobacco): has quit using tobacco Former quit date comment: Quit smoking few weeks ago Alcohol intake: never Substance/Drug Use: never Household members: family Housing: House Physical Exam Const: COMMON NORMALS: no acute distress, average body habitus, patient oriented x3, healthy appearing, alert and well nourished; limitations (Patient is extremely hard of hearing) HENMT: COMMON NORMALS: normocephalic, atraumatic, Normal external nose present and moist oral mucous membranes; hearing grossly not normal bilaterally (Patient is extremely hard of hearing) HEAD & SCALP: normocephalic and atraumatic NOSE: Normal external nose present Neck/C-Spine: COMMON NORMALS: full ROM, no lymphadenopathy, supple, no meningeal signs, no JVD and Thyroid normal THYROID: Thyroid normal Chest: COMMONS NORMALS: normal inspection of the chest and normal palpation of entire chest wall Resp: COMMON NORMALS: normal respiratory effort, No retractions, No use of accessory muscles and clear to auscultation bilaterally AUSCULTATION: clear to auscultation bilaterally Cardio: COMMON NORMALS: no JVD, regular rate, regular rhythm, S1 normal heart sound present, S2 normal heart sound present, No gallops present (Cardio) and No clicks present (Cardio) RATE: regular rate RHYTHM: regular rhythm HEART SOUNDS: S1 normal heart sound present and S2 normal heart sound present GI: COMMON NORMALS: Normal to inspection, nondistended, normoactive bowel sounds present, Soft to palpation, No hepatosplenomegaly present and no masses; negative for non-tender (Exquisitely tender over bladder region.) PALPATION: Yes Soft to palpation and Yes No hepatosplenomegaly present : COMMON NORMALS: Yes no CVA tenderness BLADDER/KIDNEY EXAM: Yes no CVA tenderness Back/Pelvis: COMMON NORMALS: no CVA tenderness Neuro: COMMON NORMALS: patient oriented x3 SENSORIUM/ORIENTATION: Yes alert MENINGEAL SIGNS: Yes no meningeal signs Course Vital Signs: Vital signs: Vital Signs Temperature 98.0 F 04/20/23 17:52 Pulse Rate 84 04/20/23 17:52 Respiratory Rate 18 04/20/23 20:40 Blood Pressure 138/59 04/20/23 17:52 Pulse Oximetry 100 04/20/23 20:40 Oxygen Delivery Me thod Nasal Cannula 04/20/23 17:52 Oxygen Flow Rate 2 04/20/23 17:52 MDM - Abdominal Pain Medical Decision Making Presents to the ER with complaints of belly hurting and his bladder hurting every time he drinks something. Patient is extremely hard of hearing will not write down on paper and does not know slightly which. Lab work was obtained which showed an extremely high white count of 57,000 low hemoglobin hematocrit of 7.1 and 23.9, elevated potassium of 5.6 as well as BUN/creatinine of [address] scan of his abdomen pelvis and chest was obtained which just showed some mild nodular opacities in his lower lobes. Patient was given 1 L normal saline bolus, and 3.375 g of Zosyn, blood cultures were obtained preantibiotics. Dr. Carvajal was consulted anticipate admission for IV antibiotics Differential Diagnosis Likely abdominal pain; Unlikely acute appendicitis, calculus of kidney, constipation, diverticulitis, endometriosis, gastroenteritis, pancreatitis or small bowel obstruction Medical Records I reviewed the patient's medical records. Lab Data I reviewed the patient's lab results. 04/20/23 19:14 04/20/23 19:14 Labs/Radiology: Radiology Impressions Chest/Abdomen/Pelvis CT 04/20/23 20:23 IMPRESSION: 1. Severe calcified coronary artery disease. 2. Mild nodular opacities in the inferior segment lingula and left lower lobe suggesting mild tuberculosis versus other inflammatory condition. IMPRESSION: Severe colonic diverticulosis. COMMENTS: Consistent with the [employer]'s Incidental Findings Committee white paper (J Am Chacho Radiol 2018): Any incidental renal lesion less than 1 cm or classified as too small to characterize, or any incidental cystic renal lesion characterized as simple-appearing, is likely benign. No follow-up imaging is recommended for these lesions per consensus recommendations based on imaging criteria. Laboratory Results WBC 57.02 10^3/uL (3.29-11.43) H* 04/20/23 19:14 RBC 2.88 10^6/uL (3.85-5.65) L 04/20/23 19:14 Hgb 7.10 g/dL (11.27-16.99) L 04/20/23 19:14 Hct 23.9 % (37-53) L 04/20/23 19:14 MCV 83.0 fl (82-101) 04/20/23 19:14 MCH 24.7 pg (27-33) L 04/20/23 19:14 MCHC 29.7 g/dL (30-55) L 04/20/23 19:14 RDW 20.8 % (12.1-15.1) H 04/20/23 19:14 Plt Count 356 10^3/cmm (157-399) 04/20/23 19:14 MPV 10.9 fL (7.4-10.4) H 04/20/23 19:14 Neut % (Auto) 90.2 % 04/20/23 19:14 Lymph % (Auto) 1.7 % 04/20/23 19:14 [place] % (Auto) 5.6 % 04/20/23 19:14 Eos % (Auto) 0.0 % 04/20/23 19:14 Baso % (Auto) 0.3 % 04/20/23 19:14 Neut # (Auto) 51.43 10^3/uL (1.8-7.7) H 04/20/23 19:14 Lymph # (Auto) 1.0 10^3/uL (0.8-4.8) 04/20/23 19:14 [place] # (Auto) 3.2 10^3/uL (0.2-0.9) H 04/20/23 19:14 Eos # (Auto) 0.0 10^3/uL (0.0-0.8) 04/20/23 19:14 Baso # (Auto) 0.2 10^3/uL (0.0-0.1) H 04/20/23 19:14 Nucleated RBC % (auto) 0 % 04/20/23 19:14 Nucleated RBCs # 0.0 /100WBC 04/20/23 19:14 Sodium 134 mmol/L (136-145) L 04/20/23 19:14 Potassium 5.6 mmol/L (3.5-5.1) H 04/20/23 19:14 Chloride 98 mmol/L (98-107) 04/20/23 19:14 Carbon Dioxide 21 mmol/L (22-29) L 04/20/23 19:14 Anion Gap 20.6 (5-19) H 04/20/23 19:14 BUN 69 mg/dL (8-23) H 04/20/23 19:14 Creatinine 3.3 mg/dL (0.7-1.2) H 04/20/23 19:14 GFR Calculation Not Reportable 04/20/23 19:14 Glucose 125 mg/dL (65-115) H 04/20/23 19:14 Calculated Osmolality 300 mOsm/kg (285-295) H 04/20/23 19:14 Lactic Acid 1.0 mmol/L (0.5-2.2) 04/20/23 20:37 Calcium 8.8 mg/dL (8.5-10.5) 04/20/23 19:14 Total Bilirubin 0.2 mg/dL (0.15-1.2) 04/20/23 19:14 AST 10 U/L (0-40) 04/20/23 19:14 ALT 10 U/L (0-41) 04/20/23 19:14 Alkaline Phosphatase 82 U/L (40-130) 04/20/23 19:14 Total Protein 6.9 g/dL (6.6-8.7) 04/20/23 19:14 Albumin 3.6 g/dL (3.5-5.2) 04/20/23 19:14 Globulin 3.3 g/dL (1.3-4.6) 04/20/23 19:14 Urine Color Yellow (Yellow) 04/20/23 19:28 Urine Appearance Cloudy (CLEAR) A 04/20/23 19:28 Urine pH 6 (5-7) 04/20/23 19:28 Ur Specific [place] 1.010 (1.005-1.030) 04/20/23 19:28 Urine Protein 3+ (Negative) H 04/20/23 19:28 Urine Glucose (UA) Norm (Normal) 04/20/23 19:28 Urine Ketones Negative (Negative) 04/20/23 19:28 Urine Blood 2+ (Negative) H 04/20/23 19:28 Urine Nitrate Positive (Negative) H 04/20/23 19:28 Urine Bilirubin Neg (Negative) 04/20/23 19:28 Urine Urobilinogen Norm mg/dL (Negative) 04/20/23 19:28 Ur Leukocyte Esterase 2+ (Negative) H 04/20/23 19:28 Urine RBC 5-10 /hpf (0-2) H 04/20/23 19:28 Urine WBC 55-80 /hpf (0-5) H 04/20/23 19:28 Ur Squamous Epith Cells 0-4 /hpf (0-5) H 04/20/23 19:28 Amorphous Sediment Not Reportable 04/20/23 19:28 Urine Bacteria 3+ /hpf (NONE) H 04/20/23 19:28 Discharge Plan Discharge Patient Disposition: Admitted As Inpatient Clinical Impression: Urinary tract infection, Leukocytosis, Chronic kidney disease, Chronic anemia Condition: Stable Prescriptions: No Action clopidogrel 75 mg tablet 75 mg PO DAILY@07 Hold Instructions: Resume on 03/28/23. polyethylene glycol 3350 [Miralax] 17 gram powder in packet 17 g PO DAILY PRN (Reason: constipation) Qty: 30 0RF esomeprazole magnesium 40 mg capsule,delayed release(DR/EC) 40 mg PO DAILY@07 sennosides-docusate sodium [Stool Softener-Laxative] 8.6-50 mg Tablet 1 tab PO DAILY Qty: 60 0RF ipratropium-albuterol 0.5 mg-3 mg(2.5 mg base)/3 mL solution for nebulization 3 ml INHALATION TID amlodipine 10 mg tablet 10 mg PO DAILY@07 Dulcolax (bisacodyl) 10 mg Suppository 10 mg [place] DAILY PRN (Reason: Constipation) Rx Instructions: if no bm for 3 days budesonide 0.25 mg/2 mL suspension for nebulization 0.25 mg inhalation BID albuterol sulfate 90 mcg/actuation HFA aerosol inhaler 2 puff INHALATION Q6H PRN (Reason: Wheezing) Tylenol 325 mg Tablet 650 mg PO Q6H PRN (Reason: Pain) sodium bicarbonate 650 mg Tablet 650 mg PO DAILY Qty: 30 0RF amlodipine 10 mg tablet 10 mg PO DAILY Qty: 30 0RF hydralazine 25 mg Tablet 50 mg PO TID Qty: 90 3RF metoprolol tartrate 50 mg tablet 50 mg PO BID Qty: 60 0RF Referrals: Adama Olmedo MD [Primary Care Provider] - Coding Level of Care Code ED School Childcare Attendant for Rubén Hanna
[2023-04-20] MEDS: ketorolac 30 mg/mL INJ IVP (19:24)
[2023-04-20 19:45] LABS: Alanine Aminotransferase 10 U/L (0-41); Albumin Level 3.6 g/dL (3.5-5.2); Alkaline Phosphatase 82 U/L (40-130); Anion Gap 20.6 (5-19); Aspartate Amino Transferase 10 U/L (0-40); Blood Urea Nitrogen 69 mg/dL (8-23); Calcium 8.8 mg/dL (8.5-10.5); Carbon Dioxide 21 mmol/L (22-29); Chloride 98 mmol/L (98-107); Globulin 3.3 g/dL (1.3-4.6); Glucose 125 mg/dL (65-115); Osmolality Calculated 300 mOsm/kg (285-295); Potassium 5.6 mmol/L (3.5-5.1); Sodium 134 mmol/L (136-145); Total Bilirubin 0.2 mg/dL (0.15-1.2); Total Protein 6.9 g/dL (6.6-8.7)
[2023-04-20 19:55] LABS: Urine Appearance Cloudy (CLEAR); Urine Color Yellow (Yellow); pH Urine 6 (5-7)
[2023-04-20 19:56] LABS: Add Urine Microscopic? YES; Bilirubin Urine Neg (Negative); Blood Urine 2+ (Negative); Glucose Urine UA Norm (Normal); Ketones Urine Negative (Negative); Leukocyte Esterase Urine 2+ (Negative); Nitrate Urine Positive (Negative); Protein Urine 3+ (Negative); Urobilinogen Urine Norm (Negative)
[2023-04-20 19:57] LABS: Add Urine Culture? Yes; Bacteria Urine 3+ /hpf; Squamous Epithelial Cell Urine 0-4 /hpf (0-5); WBC Urine 55-80 /hpf (0-5)
[2023-04-20] MEDS: sodium chloride 0.9% 1,000 ML 999 ML IV (20:04)
[2023-04-20 20:20] LABS: Basophils # 0.2 10^3/uL (0.0-0.1); Basophils % 0.3 %; Hematocrit 23.9 % (37-53); Lymphocytes % 1.7 %; Mean Corpuscular HGB Conc 29.7 g/dL (30-55); Mean Corpuscular Hemoglobin 24.7 pg (27-33); Mean Platelet Volume 10.9 fL (7.4-10.4); Monocytes # 3.2 10^3/uL (0.2-0.9); Monocytes % 5.6 %; Neutrophils # 51.43 10^3/uL (1.8-7.7); Neutrophils % 90.2 %; Nucleated Red Blood Cells % 0 %; Platelet Count 356 10^3/cmm (157-399); Red Blood Count 2.88 10^6/uL (3.85-5.65); Red Cell Distribution Width 20.8 % (12.1-15.1)
[2023-04-20 20:21] LABS: White Blood Count 57.02 10^3/uL (3.29-11.43)
--- NOTE | 2023-04-20 20:23 | CTR_ITS ---
PROCEDURE INFORMATION: Exam: CT Chest Without Contrast; Diagnostic Exam date and time: 04/20/2023 8:57 PM Age: 87 years old Clinical indication: Abdominal pain; Generalized; Other: Abdomen; Additional info: Leukocytosis, abd pain, UTI, anemia TECHNIQUE: Imaging protocol: Diagnostic computed tomography of the chest without contrast. Radiation optimization: All CT scans at this facility use at least one of these dose optimization techniques: automated exposure control; mA and/or kV adjustment per patient size (includes targeted exams where dose is matched to clinical indication); or iterative reconstruction. REPORTING DATA: Count of CT and Cardiac NM exams in prior 12 months: This patient has received 0 known CTs and 0 known cardiac nuclear medicine studies in the 12 months prior to the current study. COMPARISON: CT chest wo con [id number] 10/07/2020 4:11 AM RADIATION DOSE METRICS: Total DLP (mGy-cm): 484.55 FINDINGS: Lungs: Mild nodular opacities in the inferior segment lingula and left lower lobe suggesting mild tuberculosis versus other inflammatory condition. Pleural spaces: Bilateral apical pleural and/or parenchymal scarring. Heart: Unremarkable. No cardiomegaly. No pericardial effusion. Coronary arteries: Severe calcified coronary artery disease. Lymph nodes: Calcified right hilar nodes and/or mediastinal nodes and/or lung granulomas consistent with old granulomatous disease. Vasculature: Calcification of the thoracic aorta and/or great vessels consistent with atherosclerotic vessel disease. Bones/joints: Unremarkable. No acute fracture. Soft tissues: Unremarkable. PROCEDURE INFORMATION: Exam: CT Abdomen And Pelvis Without Contrast Exam date and time: 04/20/2023 8:57 PM Age: 87 years old Clinical indication: Abdominal pain; Generalized; Other: Abdomen; Additional info: Leukocytosis, abd pain, UTI, anemia TECHNIQUE: Imaging protocol: Computed tomography of the abdomen and pelvis without contrast. Radiation optimization: All CT scans at this facility use at least one of these dose optimization techniques: automated exposure control; mA and/or kV adjustment per patient size (includes targeted exams where dose is matched to clinical indication); or iterative reconstruction. REPORTING DATA: Count of CT and Cardiac NM exams in prior 12 months: This patient has received 0 known CTs and 0 known cardiac nuclear medicine studies in the 12 months prior to the current study. COMPARISON: CT abdomen pelvis wo con [id number] 03/19/2022 12:14 AM RADIATION DOSE METRICS: Total DLP (mGy-cm): 484.55 FINDINGS: Liver: Normal. No mass. Gallbladder and bile ducts: Normal. No calcified stones. No ductal dilation. Pancreas: Normal. No ductal dilation. Spleen: Normal. No splenomegaly. Adrenal glands: Normal. No mass. Kidneys and ureters: Left renal simple cyst measuring >1.0 cm. Stomach and bowel: Severe colonic diverticulosis. Appendix: No evidence of appendicitis. Intraperitoneal space: Unremarkable. No free air. No significant fluid collection. Vasculature: Calcification of the abdominal aorta and/or iliac arteries consistent with atherosclerotic vessel disease. Lymph nodes: Unremarkable. No enlarged lymph nodes. Urinary bladder: Unremarkable as visualized. Reproductive: Enlarged prostate greater than or equal to 5.0 cm; correlation with PSA levels is recommended. Bones/joints: Unremarkable. No acute fracture. Soft tissues: Unremarkable. CT/[place] [id number] IMPRESSION: 1. Severe calcified coronary artery disease. 2. Mild nodular opacities in the inferior segment lingula and left lower lobe suggesting mild tuberculosis versus other inflammatory condition. IMPRESSION: Severe colonic diverticulosis. COMMENTS: Consistent with the [employer]'s Incidental Findings Committee white paper (J Am Chacho Radiol 2018): Any incidental renal lesion less than 1 cm or classified as too small to characterize, or any incidental cystic renal lesion characterized as simple-appearing, is likely benign. No follow-up imaging is recommended for these lesions per consensus recommendations based on imaging criteria.
[2023-04-20 20:40] VITALS: RESP 18; O2SAT 100
[2023-04-20] MEDS: ondansetron 2 mg/ML SDV 2 mL 4 MG IVP (20:40)
[2023-04-20] MEDS: morphine 4 mg/mL SDV 1 mL IVP (20:40)
[2023-04-20] MEDS: piperacillin-tazobactam 3.375 GM in sodium chloride 0.9% (plus) 50 ML IV (21:51)
--- NOTE | 2023-04-20 22:57 | P.HP_ITS ---
Providers/Chief Complaint Admitting Physician: Wei Primary Care Provider: Adama Olmedo MD Chief Complaint: Abd Pain History of Present Illness Jimenez Green is a 87 year old male with extreme [place] unable to give history. Per his chart and medication review he appears to have hypertension and CAD or PAD. Work-up in the ED revealed a white blood cell count of 57Kand positive urine. Patient is being admitted for the treatment of sepsis secondary to urinary tract infection and acute kidney injury. Review of Systems General: Reports: Other (Pt with extreme [place] and was unable to read my questions either.) Medications/Allergies Home Medications Medication Instructions Recorded Confirmed Last Taken Type clopidogrel 75 mg tablet 75 mg PO DAILY@09/13/21 03/23/23 06/12/22 History polyethylene glycol 3350 17 gram 17 g PO DAILY PRN constipation #30 03/19/22 03/23/23 Unknown Rx oral powder packet (Miralax) ea esomeprazole magnesium 40 mg 40 mg PO DAILY@06/11/22 03/23/23 06/12/22 History capsule,delayed release sennosides 8.6 mg-docusate sodium 1 tab PO DAILY #60 tabs 06/14/22 03/23/23 Unknown Rx 50 mg tablet (Stool Softener-Laxative) acetaminophen 325 mg tablet 650 mg PO Q6H PRN Pain 03/23/23 03/23/23 Unknown History (Tylenol) albuterol sulfate 90 mcg/actuation 2 puff inhalation Q6H PRN Wheezing 03/23/23 03/23/23 Unknown History aerosol inhaler amlodipine 10 mg tablet 10 mg PO DAILY@03/23/23 03/23/23 Unknown History bisacodyl 10 mg rectal suppository 10 mg ID DAILY PRN Constipation 03/23/23 03/23/23 Unknown History (Dulcolax (bisacodyl)) budesonide 0.25 mg/2 mL suspension 0.25 mg inhalation BID 03/23/23 03/23/23 Unknown History for nebulization ipratropium 0.5 mg-albuterol 3 mg 3 ml inhalation TID 03/23/23 03/23/23 Unknown History (2.5 mg base)/3 mL nebulization soln amlodipine 10 mg tablet 10 mg PO DAILY #30 tabs 03/25/23 Unknown Rx hydralazine 25 mg tablet 50 mg PO TID #90 tabs 03/25/23 Unknown Rx metoprolol tartrate 50 mg tablet 50 mg PO BID #60 tabs 03/25/23 Unknown Rx sodium bicarbonate 650 mg tablet 650 mg PO DAILY #30 tabs 03/25/23 Unknown Rx Allergies Allergy/AdvReac Type Severity Reaction Status Date / Time No Known Allergies Allergy Verified 03/23/23 07:56 PFSH Acute PFSH: Medical History (Updated 04/20/23 @ 23:07 by Jevon Carvajal DO) Acute exacerbation of CHF (congestive heart failure) Acute exacerbation of chronic obstructive airways disease Anemia Chronic kidney disease, stage III (moderate) Chronic lower GI bleeding Cognitive impairment Constipation COPD (chronic obstructive pulmonary disease) Coronary artery disease COVID Hemorrhagic shock Hyperkalemia Hyperlipidemia Hypertension Non-ST elevation myocardial infarction (NSTEMI) SVT (supraventricular tachycardia) Surgical History Stented coronary artery 3 stents at [facility] 16 years ago Family History Denies family history of Clotting disorder Chronic kidney disease (CKD) Social History Smoking and tobacco status: former smoker Quit status (tobacco): has quit using tobacco Former quit date comment: Quit smoking few weeks ago Alcohol intake: never Substance/Drug Use: never Household members: family Housing: House Vitals/I&O/Wt Last Vital Signs Temp 98.0 F 04/20/23 17:52 Pulse 84 04/20/23 17:52 Resp 18 04/20/23 20:40 BP 138/59 04/20/23 17:52 Pulse Ox 100 04/20/23 20:40 O2 Del Method Nasal Cannula 04/20/23 17:52 O2 Flow Rate 2 04/20/23 17:52 04/20/23 04/20/23 04/20/23 06:59 14:59 22:59 Intake Total 1050 / 1050 Balance 1050 / 1050 Weight last 48 hrs Weight 63.503 kg Physical Exam Narrative: Patient is an 87-year-old white male who appears frail thin. Neurologic patient talks but cannot answer my questions. He is alert he appears oriented. He is nonfocal on exam HEENT head is normocephalic atraumatic pupils equal round reactive to light and accommodation extraocular muscles are intact there is no scleral icterus mucous membranes are moist and pink without lesions or exudates neck is supple no JVD carotid bruits or lymphadenopathy Chest: Rises symmetric with inspiration Heart: Distant heart sounds no loud murmur Lungs: Clear with limited air movement. No wheezes rales or rhonchi Abdomen: Flat soft positive tenderness suprapubically, nondistended positive bowel sounds Extremities: For present no clubbing cyanosis or edema Back: Slight kyphosis. No CVA tenderness Psych: Patient's mood and affect seem appropriate. he is calm Skin: Warm and dry; pale Data 04/20/23 19:14 04/20/23 19:14 Micro: Microbiology 04/20/23 20:42 Blood Culture - Preliminary Blood SPECIMEN COLLECTED 04/20/23 20:37 Blood Culture - Preliminary Blood SPECIMEN COLLECTED Other CT: My impression: CT chest abdomen and pelvis Radiologist's impression: IMPRESSION: 1. ? Severe calcified coronary artery disease. 2. ? Mild nodular opacities in the inferior segment lingula and left lower lobe suggesting mild tuberculosis versus other inflammatory condition A&P Assessment and plan (1) Sepsis: (2) Urinary tract infection: Qualifiers: Hematuria presence: with hematuria Urinary tract infection type: acute cystitis Qualified Code(s): N30.01 - Acute cystitis with hematuria (3) Leukocytosis: Qualifiers: Leukocytosis type: unspecified Qualified Code(s): D72.829 - Elevated white blood cell count, unspecified (4) Chronic kidney disease: Qualifiers: Chronic kidney disease stage: unspecified stage Qualified Code(s): N18.9 - Chronic kidney disease, unspecified (5) Chronic anemia: (6) Coronary artery disease: Plan 1. Sepsis from UTI. Patient on Zosyn. And IV fluids 2. UTI: Zosyn, IV fluids, Sheikh catheter. 3. Acute on chronic kidney disease: Actually patient does not look much off baseline. He is having difficulties urinating. Patient did have a recent renal ultrasound that shows no obstruction. 4. Severely elevated WBC at 57,000. Patient's white blood cell count is typically elevated up to 13-14. 5. Anemia: Patient's normal is in the range of 9-10. However on 03/22/2023 patient had a hemoglobin of 5.2 the following day it was 9.0 and today it is 7.1 6. Recently admitted to the hospital: 8 1-8 4. Patient will likely need a renal consult for the severe anemia associated with chronic kidney disease. Attestations Medical Necessity Statement*: Patient is being admitted for severe sepsis UTI has severe anemia. He will require 2 midnight stay. Coding Level of Care Code Acute Code for [facility] Diagnoses Sepsis A41.9 Urinary tract infection N30.01 Hematuria presence: with hematuria Urinary tract infection type: acute cystitis Leukocytosis D72.829 Leukocytosis type: unspecified Chronic kidney disease N18.9 Chronic kidney disease stage: unspecified stage Chronic anemia D64.9 Coronary artery disease I25.10
[2023-04-20] MEDS: sodium chloride 0.9% 1,000 ML 125 ML IV (23:25)
--- NOTE | 2023-04-20 23:27 | PC.NURSE ---
UPON CHANGING BED AND CLOTHES INTO GOWN I NOTICED A 2CM BY 2CM AND ABOUT 1CM DEEP BUT FILLED WITH PUS. PT STATES ONE NIGHT HE FELT IT STINGING THEN NOTICED IT GETTING WORSE. ADMITTING MD NOTIFIED.
[2023-04-20 23:29] VITALS: BP 127/60; PULSE 71; RESP 18; O2SAT 99
[2023-04-20 23:50] VITALS: BP 119/62; PULSE 76; RESP 18; O2SAT 100
--- NOTE | 2023-04-20 23:53 | PC.NURSE ---
assumed care from Joya Medel LPN @ [phone].
[2023-04-21] VITALS (17 sets, daily range): BP systolic 108–123; BP diastolic 48–67; PULSE 66–101; RESP 14–22; TEMP 36.7–37.3; O2SAT 93–97
[2023-04-21] MEDS: acetaminophen 325 mg Tablet 650 MG PO (00:40)
--- NOTE | 2023-04-21 00:46 | PC.NURSE ---
Unable to complete all admission questions due to patient being extremely hard of hearing and unable to read all questions.
[2023-04-21] MEDS: phenazopyridine 100 mg Tablet PO (01:35)
[2023-04-21] MEDS: mupirocin oint 22 gm 1 APPLIC TOPICAL ×4 (01:36→21:25)
[2023-04-21] MEDS: pantoprazole DR 40 mg Tablet PO (05:59)
[2023-04-21] MEDS: amlodipine 10 mg Tablet PO (05:59)
[2023-04-21] MEDS: clopidogrel 75 mg Tablet PO (05:59)
[2023-04-21 06:19] LABS: Basophils # 0.1 10^3/uL (0.0-0.1); Basophils % 0.2 %; Hematocrit 26.6 % (37-53); Lymphocytes # 0.7 10^3/uL (0.8-4.8); Lymphocytes % 1.9 %; Mean Corpuscular HGB Conc 29.3 g/dL (30-55); Mean Corpuscular Hemoglobin 24.4 pg (27-33); Mean Corpuscular Volume 83.1 fl (82-101); Mean Platelet Volume 11.1 fL (7.4-10.4); Monocytes % 2.9 %; Neutrophils # 32.35 10^3/uL (1.8-7.7); Neutrophils % 93.5 %; Nucleated Red Blood Cells % 0 %; Platelet Count 287 10^3/cmm (157-399); Red Cell Distribution Width 20.8 % (12.1-15.1)
[2023-04-21 06:29] LABS: White Blood Count 34.66 10^3/uL (3.29-11.43)
[2023-04-21 06:37] LABS: Blood Urea Nitrogen 70 mg/dL (8-23); Calcium 8.9 mg/dL (8.5-10.5); Carbon Dioxide 21 mmol/L (22-29); Chloride 103 mmol/L (98-107); Glucose 67 mg/dL (65-115); Osmolality Calculated 303 mOsm/kg (285-295); Sodium 137 mmol/L (136-145)
[2023-04-21 06:43] LABS: Anion Gap 19.2 (5-19); Potassium 6.2 mmol/L (3.5-5.1)
--- NOTE | 2023-04-21 07:21 | PC.PHAR ---
Addendum entered by Jesica Lemus 04/21/23 09:13: medications entered are from the pts mar and tar from [facility]-per kin lopez from [facility] states the pts plavix 75mg daily was dced 04/04/23 Original Note: pt is from [facility]-per marvin bansal fax mar and tar
[2023-04-21] MEDS: ipratropium-albuterol 3 mL Neb INHALATION ×3 (08:16→20:24)
[2023-04-21] MEDS: budesonide 0.5 mg/2 mL Neb INHALATION ×2 (08:16→20:24)
[2023-04-21 09:10] LABS: Cortisol Random 26.16 ug/dL (2.47-19.5)
[2023-04-21 09:11] LABS: Procalcitonin 4.17 ng/mL (0-0.5); Thyroid Stimulating Hormone 0.98 uIU/mL (0.27-4.20)
[2023-04-21] MEDS: sodium chloride 0.9% 1,000 ML 125 ML IV (09:15)
[2023-04-21] MEDS: sennosides-docusate Tablet 1 TAB PO (09:15)
[2023-04-21 09:22] LABS: C Reactive Protein 336.9 mg/L (0.0-4.9); Ferritin 228 ng/mL (30-400); Iron 15 ug/dL (59-158)
[2023-04-21 09:23] LABS: Percent Saturation 7.4 % (20-50); Total Iron Binding Capacity 201 mcg/dl; Unsaturated Iron Binding 186 ug/dL (112-347)
[2023-04-21] MEDS: dextrose 50% syringe 50 mL IVP ×2 (09:29→16:15)
[2023-04-21] MEDS: sucralfate 1 gm Tablet PO ×2 (09:29→21:25)
[2023-04-21] MEDS: calcium gluconate 0.9% NaCL 1 GM/50 ML PREMIX IV (09:29)
[2023-04-21] MEDS: pantoprazole 40 mg SDV IVP ×2 (09:29→21:24)
[2023-04-21] MEDS: sodium polystyrene sulfonate 15 gm/60 mL Btl PO (09:29)
[2023-04-21] MEDS: insulin regular-human 10 UNIT in SYRINGE 1 EACH IVP ×2 (09:30→16:15)
[2023-04-21] MEDS: vancomycin 1,000 MG in sodium chloride 0.9% 250 ML 250 MG IV (09:30)
[2023-04-21] MEDS: polyethylene glycol 3350 Pkt 17 gm PO (09:33)
--- NOTE | 2023-04-21 10:46 | PC.CHAP ---
Pastoral Care Encounter/Spiritual Assessment Type of Contact [] Declined flying squad worker visit [] Patient/Family/Request visit [] Outpatient visit [] Follow-up visit [] Physician referral [] Code/Alert [x] Routine visit [] Staff referral [] Actively dying [] Patient sleeping [] Family support [] [] Out of room [] Palliative care [] [x] Receiving care in room [] Pre-surgical visit [] Trauma [] Long length of stay [] ICU visit [] Other: Relational/Emotional Strength [] Patient feels connected with others/family/visitors/staff [] Distress [] Loneliness/isolation [] Abandonment Spirituality of Patient [] Person of Marlene [] Attends Mosque of their Marlene [] Believes in Prayer [] Reads Bible or Confucianist materials [] There are Spiritual issues to be addressed Hearing Therapy Teacher Interventions [] Prayer [] Active listening [] Non-anxious presence [] Spiritual/emotional support [] Crisis/trauma care [] Spiritual counseling [] Bereavement support [] Provided bereavement packet [] Provided Bible/devotional materials [] Provided toy/stuffed animal, coloring book to patient or family member [] Provided Communion [] Anointing/Drake [] Salvation [] Completed spiritual assessment [] Other: Impact on Illness or Injury [] Angry [] Fearful [] Anxious [] Often cries [] Exhaustion [] Unable to work [] Unable to attend yarsani [] Unable to walk/stand [] Unable to read [] Unable to drive [] Unable to eat/drink [] Unable to sleep [] Unable to be with family [] Patient intubated [] Other: Summary unable to counicate with staff Time spent with patient 5 mins
[2023-04-21] MEDS: piperacillin-tazobactam 3.375 GM in sodium chloride 0.9% (plus) 50 ML IV ×2 (10:55→22:33)
[2023-04-21 11:36] LABS: Glucose Point of Care 73 mg/dL (70-110)
[2023-04-21 13:19] LABS: Basophils # 0.1 10^3/uL (0.0-0.1); Basophils % 0.2 %; Hematocrit 22.7 % (37-53); Lymphocytes # 0.5 10^3/uL (0.8-4.8); Lymphocytes % 1.4 %; Mean Corpuscular HGB Conc 29.1 g/dL (30-55); Mean Corpuscular Hemoglobin 24.8 pg (27-33); Mean Corpuscular Volume 85.3 fl (82-101); Mean Platelet Volume 10.8 fL (7.4-10.4); Monocytes # 1.6 10^3/uL (0.2-0.9); Monocytes % 4.7 %; Neutrophils # 31.07 10^3/uL (1.8-7.7); Neutrophils % 92.1 %; Nucleated Red Blood Cells % 0 %; Platelet Count 272 10^3/cmm (157-399); Red Blood Count 2.66 10^6/uL (3.85-5.65)
[2023-04-21 13:23] LABS: INR 1.19 (0.8-1.2)
[2023-04-21 13:24] LABS: Fibrinogen 800 mg/dL (174-498); Partial Thromboplastin Time 32.6 SECONDS (23.9-36.7)
[2023-04-21 13:27] LABS: D Dimer 2.41 ug/mLFEU (0-0.59)
[2023-04-21 13:40] LABS: Anion Gap 20.4 (5-19); Blood Urea Nitrogen 67 mg/dL (8-23); Calcium 8.8 mg/dL (8.5-10.5); Carbon Dioxide 21 mmol/L (22-29); Chloride 100 mmol/L (98-107); Glucose 65 mg/dL (65-115); Osmolality Calculated 300 mOsm/kg (285-295); Potassium 5.4 mmol/L (3.5-5.1); Sodium 136 mmol/L (136-145)
[2023-04-21 13:53] LABS: White Blood Count 33.73 10^3/uL (3.29-11.43)
--- NOTE | 2023-04-21 14:23 | US_ITS ---
WS: [id number] RENAL ULTRASOUND HISTORY: renal failure COMPARISON: 03/24/2023 TECHNIQUE: 2-D and color Doppler imaging of the kidney submitted. Right kidney: 8.1 cm x 3.7 cm x 4.0 cm. Cortex: 1.0 cm Small caliber kidney with multiple cortical cysts. No solid mass. No obstruction. Largest cyst measur es 1.7 x 1.8 x 1.8 cm. Left kidney: 10.7 cm x 5.5 cm x 6.1 cm. Cortex: 1.8 cm Normal size kidney. Cyst upper pole measures 3.6 x 3.5 x 3.6 cm. No solid mass. Aorta: Normal. Urinary Bladder: Sheikh catheter present in a nondistended bladder. IMPRESSION: 1. No renal obstruction. 2. Bilateral renal cysts. 3. No interval change since 03/24/2023.
--- NOTE | 2023-04-21 16:10 | PM.PN ---
Subjective Subjective: Patient was seen this morning, nursing staff at bedside, he is receiving a D50, insulin push for his hyperkalemia, he is very hard of hearing, after multiple attempts at trying to speak with him, he tells me that he is not hurting anywhere, he denies any jayson pain currently, but was having flank pain I am not exactly sure where, I was able to write on a piece of paper to try to communicate with him in more detail I do not believe he can read as he was not able to provide answers to written questions, I would have nursing staff try to get his hearing aids, Vitals/I&O/Wt Last Vital Signs Temp 98.2 F 04/21/23 12:00 Pulse 91 04/21/23 14:16 Resp 18 04/21/23 14:16 BP 111/54 04/21/23 12:00 Pulse Ox 97 04/21/23 14:16 O2 Del Method Nasal Cannula 04/21/23 14:16 O2 Flow Rate 2 04/21/23 14:16 04/21/23 04/21/23 04/21/23 06:59 14:59 22:59 Intake Total 120 / 1170 2020.1 / 2020.1 768.75 / 2788.85 Output Total 500 / 500 400 / 400 Balance -380 / 670 1620.1 / 1620.1 768.75 / 2388.85 Weight last 48 hrs Weight 63.503 kg Physical Exam Const: COMMON NORMALS: no acute distress OTHER: Has temporal muscle wasting, peripheral muscle wasting, bilateral arms, thighs, legs, Resp: COMMON NORMALS: normal respiratory effort, No retractions, No use of accessory muscles and clear to auscultation bilaterally AUSCULTATION: clear to auscultation bilaterally Cardio: COMMON NORMALS: regular rate, regular rhythm, S1 normal heart sound present and S2 normal heart sound present RATE: regular rate RHYTHM: regular rhythm HEART SOUNDS: S1 normal heart sound present and S2 normal heart sound present GI: COMMON NORMALS: Normal to inspection, nondistended, normoactive bowel sounds present, non-tender and no bruits Extremity: COMMON NORMALS: no pedal edema Psych: COMMON NORMALS: mental status grossly normal Urinary Catheter Management: Sheikh: Cath Placed During This Visit: yes Reason for Continuing Indwelling Catheter: Other Urinary Catheter Date of Insertion: 04/20/23 Urinary Catheter Time of Insertion: 23:29 Data 04/21/23 12:45 04/21/23 12:45 Micro: Microbiology 04/20/23 19:28 Urine Culture - Preliminary Urine,Clean Catch 04/20/23 20:42 Blood Culture - Preliminary Blood SPECIMEN COLLECTED 04/20/23 20:37 Blood Culture - Preliminary Blood SPECIMEN COLLECTED A&P Assessment and plan (1) Sepsis: (2) Urinary tract infection: Qualifiers: Hematuria presence: with hematuria Urinary tract infection type: acute cystitis Qualified Code(s): N30.01 - Acute cystitis with hematuria (3) Leukocytosis: Qualifiers: Leukocytosis type: unspecified Qualified Code(s): D72.829 - Elevated white blood cell count, unspecified (4) Chronic kidney disease: Qualifiers: Chronic kidney disease stage: unspecified stage Qualified Code(s): N18.9 - Chronic kidney disease, unspecified (5) Chronic anemia: (6) Coronary artery disease: (7) Protein calorie malnutrition: (8) Physical deconditioning: (9) Muscle wasting: (10) Iron deficiency anemia: Plan 1. Sepsis from UTI. Patient on Zosyn. We will add on vancomycin for antibiotic coverage 2. UTI: Zosyn, IV fluids, Sheikh catheter. 3. Acute on chronic kidney disease: Actually patient does not look much off baseline. He is having difficulties urinating. Patient did have a recent renal ultrasound that shows no obstruction., Repeat renal ultrasound 4. Severely elevated WBC at 57,000. Patient's white blood cell count is typically elevated up to 13-14. 5. Anemia: Patient's normal is in the range of 9-10. However on 03/22/2023 patient had a hemoglobin of 5.2 the following day it was 9.0 and today it is 7.1, repeat hemoglobin this afternoon which shows a hemoglobin of 6.6, will transfuse 1 unit PRBC, hold Plavix 6. Recently admitted to the hospital: 8 -8 4. Patient will likely need a renal consult for the severe anemia associated with chronic kidney disease. 7. Physical deconditioning, protein calorie malnutrition, muscle wasting, consult dietary, speech therapy, PT OT Full code SCDs for DVT prophylaxis Attestations Medical Necessity Statement*: Patient requires hospitalization for sepsis secondary to UTI, leukocytosis, KEEGAN on CKD, significant leukocytosis, anemia, requiring transfusion, Diagnoses Sepsis A41.9 Urinary tract infection N30.01 Hematuria presence: with hematuria Urinary tract infection type: acute cystitis Leukocytosis D72.829 Leukocytosis type: unspecified Chronic kidney disease N18.9 Chronic kidney disease stage: unspecified stage Chronic anemia D64.9 Coronary artery disease I25.10 Protein calorie malnutrition E46 Physical deconditioning R53.81 Muscle wasting M62.50 Iron deficiency anemia D50.9
[2023-04-21] MEDS: morphine 4 mg/mL SDV 1 mL 2 MG IVP (16:41)
--- NOTE | 2023-04-21 16:41 | ECG_ITS ---
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 Measurements Intervals [place] Rate: 116 P: 84 PA: 135 QRS: 87 QRSD: 89 T: 79 QT: 294 QTc: 409 Interpretive Statements SINUS TACHYCARDIA POSSIBLE LEFT ATRIAL ENLARGEMENT [-0.1mV P-WAVE IN V1/V2] ST DEPRESSION, CONSIDER SUBENDOCARDIAL INJURY [0.1+ mV ST DEPRESSION] Compared to ECG 06/13/2022 15:58:26 ST (T wave) deviation now present Sinus rhythm no longer present Electronically Signed On 04-21-2023 17:37:37 CDT by Bradly Okeefe M.D. [id number]
[2023-04-21 17:13] LABS: Glucose Point of Care 141 mg/dL (70-110)
[2023-04-21 17:59] LABS: Troponin(5th) Baseline 60 ng/L (0-15)
--- NOTE | 2023-04-21 18:27 | ECG_ITS ---
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 Measurements Intervals [place] Rate: 93 P: 75 FL: 116 QRS: 81 QRSD: 89 T: 78 QT: 343 QTc: 427 Interpretive Statements SINUS RHYTHM WITH SHORT FL INTERVAL Compared to ECG 04/21/2023 16:41:36 Short FL interval now present Sinus tachycardia no longer present ST (T wave) deviation no longer present Electronically Signed On 04-21-2023 18:59:58 CDT by Bradly Okeefe M.D. [id number]
[2023-04-21 18:52] LABS: Potassium, Radom Urine 30 mmol/L; Urine Random Chloride 58 mmol/L; Urine Random Sodium 70 mmol/L
[2023-04-21 19:19] LABS: Eosinophil Urine No Eosinophils Seen; Urine Eosinophil Count 0 (0-0)
[2023-04-21 21:10] LABS: Glucose Point of Care 154 mg/dL (70-110)
[2023-04-21 22:02] LABS: Adenovirus Not Detected (NOT DETECT); Chlamydia Pneumoniae Not Detected (NOT DETECT); Coronavirus 229E,HKU1,NL63,OC4 Not Detected (NOT DETECT); Human Metapneumovirus Not Detected (NOT DETECT); Human Rhinovirus/Enterovirus Not Detected (NOT DETECT); Influenza A Not Detected (NOT DETECT); Influenza A H1 Not Detected (NOT DETECT); Influenza A H1-2009 Not Detected (NOT DETECT); Influenza A H3 Not Detected (NOT DETECT); Influenza B Not Detected (NOT DETECT); Mycoplasma Pneumoniae Not Detected (NOT DETECT); Parainfluenza Virus Type 1 Not Detected (NOT DETECT); Parainfluenza Virus Type 2 Not Detected (NOT DETECT); Parainfluenza Virus Type 3 Not Detected (NOT DETECT); Parainfluenza Virus Type 4 Not Detected (NOT DETECT); Respiratory Syncytial Virus A Not Detected (NOT DETECT); Respiratory Syncytial Virus B Not Detected (NOT DETECT); SARS-COV-2 Not Detected (NOT DETECT)
[2023-04-21] MEDS: sodium chloride 0.9% 1,000 ML 75 ML IV (22:34)
--- NOTE | 2023-04-21 22:56 | ECG_ITS ---
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 Measurements Intervals [place] Rate: 101 P: 152 TX: 121 QRS: 145 QRSD: 92 T: 149 QT: 321 QTc: 416 Interpretive Statements POSSIBLE LIMB LEAD REVERSAL ECTOPIC ATRIAL TACHYCARDIA POSSIBLE LEFT ATRIAL ENLARGEMENT [-0.1mV P-WAVE IN V1/V2] INCOMPLETE RIGHT BUNDLE BRANCH BLOCK POSSIBLE RIGHT VENTRICULAR HYPERTROPHY Compared to ECG 04/21/2023 18:27:19 Incomplete right bundle-branch block now present Sinus rhythm no longer present Short [place] interval no longer present Electronically Signed On 04-22-2023 13:05:26 CDT by Osiris Mcclelland M.D. [email or web address].[email or web address]/store/[id number]
[2023-04-21 23:14] LABS: Hematocrit 23.6 % (37-53)
[2023-04-21 23:34] LABS: Troponin(5th) Baseline 67 ng/L (0-15)
[2023-04-21 23:35] LABS: Anion Gap 17.3 (5-19); Blood Urea Nitrogen 64 mg/dL (8-23); Calcium 8.1 mg/dL (8.5-10.5); Carbon Dioxide 22 mmol/L (22-29); Chloride 102 mmol/L (98-107); Glucose 103 mg/dL (65-115); Osmolality Calculated 301 mOsm/kg (285-295); Potassium 5.3 mmol/L (3.5-5.1); Sodium 136 mmol/L (136-145)
[2023-04-22] VITALS (13 sets, daily range): BP systolic 103–136; BP diastolic 50–69; PULSE 72–112; RESP 15–22; TEMP 36.4–37.5; O2SAT 91–96
--- NOTE | 2023-04-22 01:04 | ECG_ITS ---
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 Measurements Intervals [place] Rate: 133 P: 0 MS: 0 QRS: 85 QRSD: 84 T: 74 QT: 272 QTc: 406 Interpretive Statements ATRIAL FIBRILLATION WITH RAPID VENTRICULAR RESPONSE ST DEPRESSION, CONSIDER SUBENDOCARDIAL INJURY [0.1+ mV ST DEPRESSION] Compared to ECG 04/21/2023 22:56:10 ST (T wave) deviation now present Incomplete right bundle-branch block no longer present Electronically Signed On 04-22-2023 9:17:44 CDT by Osiris Mcclelland M.D. [email or web address].[employer]/store/[id number]
[2023-04-22] MEDS: metoprolol tartrate 1 mg/1 mL SDV 5 mL 5 MG IVP (01:31)
--- NOTE | 2023-04-22 01:36 | PM.MISC ---
Miscellaneous Note Purpose of Documentation: CTSP Re: tachycardia Note: HR 130's. ? afib vs MAT reviewed home meds. His BP meds were on hold due to low BP/Sepsis. Gave low dose metoprolol IV with some effect. Start home dose of metoprolol 50 mg bid at 0600 and 1800.
[2023-04-22 01:40] LABS: Troponin 5 2HR 61.51 ng/L (0-15); Troponin 5 2HR Delta -5.49 ABS# (0-10)
--- NOTE | 2023-04-22 01:55 | PC.NURSE ---
0100 Patient had an episode of tachycardia ranging from 160-180 on tele, upon entering room patient had just gotten back in bed from the bedside commode. Patient remained tachycardic at rest, EKG showed 133 Afib w/RVR. Dr. Gross was notified and came to assess the patient. Order received for 5mg IVP Metoprolol.
[2023-04-22 04:10] LABS: Basophils # 0.1 10^3/uL (0.0-0.1); Basophils % 0.3 %; Eosinophils % 0.1 %; Hematocrit 23.9 % (37-53); Lymphocytes # 0.6 10^3/uL (0.8-4.8); Lymphocytes % 3.1 %; Mean Corpuscular HGB Conc 30.5 g/dL (30-55); Mean Corpuscular Hemoglobin 26.1 pg (27-33); Mean Corpuscular Volume 85.4 fl (82-101); Mean Platelet Volume 11.1 fL (7.4-10.4); Monocytes # 0.8 10^3/uL (0.2-0.9); Monocytes % 4.5 %; Neutrophils # 16.76 10^3/uL (1.8-7.7); Neutrophils % 90.6 %; Nucleated Red Blood Cells % 0.1 %; Platelet Count 206 10^3/cmm (157-399); Red Cell Distribution Width 19.3 % (12.1-15.1); White Blood Count 18.49 10^3/uL (3.29-11.43)
[2023-04-22 04:29] LABS: Lactate (Lactic Acid level) 1.2 mmol/L (0.5-2.2)
[2023-04-22 04:32] LABS: Troponin 5 6HR 59.37 ng/L (0-15)
[2023-04-22 04:33] LABS: Troponin 5 6HR Delta -7.63 ng/L (0-12)
[2023-04-22 04:35] LABS: C Reactive Protein 320.9 mg/L (0.0-4.9); Magnesium 1.1 mg/dL (1.7-2.3); Phosphorus 4.4 mg/dL (2.5-4.5)
[2023-04-22 04:44] LABS: NT Pro B Type Natriuretic Pept 6563 pg/mL (0-450)
[2023-04-22 04:56] LABS: Anion Gap 19.3 (5-19); Blood Urea Nitrogen 63 mg/dL (8-23); Calcium 8.2 mg/dL (8.5-10.5); Carbon Dioxide 17 mmol/L (22-29); Chloride 103 mmol/L (98-107); Glucose 95 mg/dL (65-115); Osmolality Calculated 296 mOsm/kg (285-295); Potassium 5.3 mmol/L (3.5-5.1); Sodium 134 mmol/L (136-145)
[2023-04-22] MEDS: metoprolol tartrate 50 mg Tablet PO ×2 (05:04→17:25)
[2023-04-22 05:19] LABS: Procalcitonin 5.25 ng/mL (0-0.5)
[2023-04-22 06:34] LABS: Glucose Point of Care 99 mg/dL (70-110)
[2023-04-22] MEDS: ipratropium-albuterol 3 mL Neb INHALATION ×3 (08:13→19:30)
[2023-04-22] MEDS: budesonide 0.5 mg/2 mL Neb INHALATION ×2 (08:13→19:30)
[2023-04-22] MEDS: sennosides-docusate Tablet 1 TAB PO (09:40)
[2023-04-22] MEDS: sucralfate 1 gm Tablet PO ×2 (09:41→20:49)
[2023-04-22] MEDS: pantoprazole 40 mg SDV IVP ×2 (09:43→20:50)
[2023-04-22] MEDS: mupirocin oint 22 gm 1 APPLIC TOPICAL ×3 (10:21→21:01)
[2023-04-22 11:40] LABS: Glucose Point of Care 135 mg/dL (70-110)
[2023-04-22] MEDS: sodium chloride 0.9% 1,000 ML 75 ML IV (11:53)
[2023-04-22] MEDS: piperacillin-tazobactam 3.375 GM in sodium chloride 0.9% (plus) 50 ML IV ×2 (11:53→23:36)
--- NOTE | 2023-04-22 13:10 | PM.PN ---
Subjective Subjective: Patient was seen this morning, denies any fevers, no chills, no cough, he is much more alert awake, he is still very hard of hearing, he tells me his pain has improved, overnight he went into A-fib with RVR, currently back into sinus rhythm, Vitals/I&O/Wt Last Vital Signs Temp 97.9 F 04/22/23 11:04 Pulse 72 04/22/23 11:04 Resp 16 04/22/23 11:04 BP 105/60 04/22/23 11:04 Pulse Ox 93 04/22/23 11:04 O2 Del Method Nasal Cannula 04/22/23 11:04 O2 Flow Rate 2 04/22/23 08:13 04/21/23 04/22/23 04/22/23 22:59 06:59 14:59 Intake Total 1512.60 / 3532.70 500 / 4032.70 998.75 / 998.75 Output Total 1400 / 1800 Balance 1512.60 / 3132.70 -900 / 2232.70 998.75 / 998.75 Weight last 48 hrs Weight 63.503 kg Physical Exam Const: COMMON NORMALS: no acute distress ORIENTATION/CONSCIOUSNESS: Yes awake and Yes oriented to person; not oriented to place Resp: COMMON NORMALS: normal respiratory effort, No retractions, No use of accessory muscles and clear to auscultation bilaterally AUSCULTATION: clear to auscultation bilaterally Cardio: COMMON NORMALS: regular rate, regular rhythm, S1 normal heart sound present and S2 normal heart sound present RATE: regular rate RHYTHM: regular rhythm HEART SOUNDS: S1 normal heart sound present and S2 normal heart sound present GI: COMMON NORMALS: Normal to inspection, nondistended, normoactive bowel sounds present and non-tender Extremity: COMMON NORMALS: no pedal edema Neuro: SENSORIUM/ORIENTATION: Yes oriented to person and No oriented to place Psych: COMMON NORMALS: mental status grossly normal Urinary Catheter Management: Sheikh: Cath Placed During This Visit: yes Reason for Continuing Indwelling Catheter: Other Urinary Catheter Date of Insertion: 04/20/23 Urinary Catheter Time of Insertion: 23:29 Data 04/22/23 04:03 04/22/23 04:03 Micro: Microbiology 04/20/23 19:28 Urine Culture - Preliminary Urine,Clean Catch Gram Negative Rods Gram Negative Rods#2 04/22/23 09:19 Blood Culture - Preliminary Blood SPECIMEN COLLECTED 04/22/23 09:19 Blood Culture - Preliminary Blood SPECIMEN COLLECTED 04/20/23 20:42 Blood Culture - Preliminary Blood NEGATIVE TO DATE 04/20/23 20:37 Blood Culture - Preliminary Blood Gram Negative Rods A&P Assessment and plan (1) Sepsis: (2) Urinary tract infection: Qualifiers: Hematuria presence: with hematuria Urinary tract infection type: acute cystitis Qualified Code(s): N30.01 - Acute cystitis with hematuria (3) Leukocytosis: Qualifiers: Leukocytosis type: unspecified Qualified Code(s): D72.829 - Elevated white blood cell count, unspecified (4) Chronic kidney disease: Qualifiers: Chronic kidney disease stage: unspecified stage Qualified Code(s): N18.9 - Chronic kidney disease, unspecified (5) Chronic anemia: (6) Coronary artery disease: (7) Protein calorie malnutrition: (8) Physical deconditioning: (9) Muscle wasting: (10) Iron deficiency anemia: (11) Gram-negative bacteremia: (12) Hyperkalemia: (13) Acute kidney injury: (14) Atrial fibrillation with RVR: Plan - Sepsis from UTI. Patient on Zosyn, vancomycin - Gram negative bacteremia, awaiting identification follow repeat blood culture - UTI: Zosyn,vancomycin, IV fluids, Sheikh catheter. - Acute on chronic kidney disease: Actually patient does not look much off baseline. He is having difficulties urinating. Patient did have a recent renal ultrasound that shows no obstruction., Repeat renal ultrasound so far no significant obstruction, is developing fluid overload, creatinine plateaued at 3.3, hold off on further fluid therapy - Severely elevated WBC at 57,000. Patient's white blood cell count is typically elevated up to 13-14. - Anemia: Patient's normal is in the range of 9-10. However on 03/22/2023 patient had a hemoglobin of 5.2 the following day it was 9.0 and today it is 7.3, , s/p 1 unit PRBC, hold Plavix, repeat hgb this afternoon, continue Protonix, Carafate - Physical deconditioning, protein calorie malnutrition, muscle wasting, consult dietary, speech therapy, PT OT -Hypomagnesemia we will replace IV -Hyperkalemia, status post 2 doses of IV insulin, D50, 1 dose of calcium gluconate, potassium this morning 5.3 -A-fib with RVR, continue metoprolol 50 mg twice daily, anticoagulate relatively contraindicated given anemia -2 diabetes mellitus, low-dose sliding scale Full code SCDs for DVT prophylaxis, anticoagulation relatively contraindicated given anemia Attestations Medical Necessity Statement*: Patient requires hospitalization from sepsis from UTI, gram-negative bacteremia, KEEGAN on CKD, anemia, hypomagnesemia, hyperkalemia Diagnoses Sepsis A41.9 Urinary tract infection N30.01 Hematuria presence: with hematuria Urinary tract infection type: acute cystitis Leukocytosis D72.829 Leukocytosis type: unspecified Chronic kidney disease N18.9 Chronic kidney disease stage: unspecified stage Chronic anemia D64.9 Coronary artery disease I25.10 Protein calorie malnutrition E46 Physical deconditioning R53.81 Muscle wasting M62.50 Iron deficiency anemia D50.9 Gram-negative bacteremia R78.81 Hyperkalemia E87.5 Acute kidney injury N17.9 Atrial fibrillation with RVR I48.91
[2023-04-22 14:01] LABS: Hematocrit 21.4 % (37-53)
[2023-04-22] MEDS: magnesium sulfate premix 4 GM/100 ML PREMIX IV (14:10)
[2023-04-22 17:24] LABS: Glucose Point of Care 156 mg/dL (70-110)
[2023-04-22] MEDS: insulin lispro 100 unit/1 mL SUBCUT (17:25)
--- NOTE | 2023-04-22 18:17 | PC.OT ---
Attempted evaluation at 11:42 am and 1:52 pm, and pt declined both. Pt appeared confused and lab values still not improving. Will attempt tomorrow.
--- NOTE | 2023-04-22 18:19 | PC.PT ---
Patient received 2 attempts at physical therapy evaluation today, and appeared confused, and declined attempts as well, lab values still being improved. Will reattempt tomorrow.
[2023-04-22 20:47] LABS: Glucose Point of Care 138 mg/dL (70-110)
[2023-04-22] MEDS: acetaminophen 325 mg Tablet 650 MG PO (23:35)
[2023-04-23] VITALS (15 sets, daily range): BP systolic 124–172; BP diastolic 69–85; PULSE 71–118; RESP 16–616; TEMP 36.6–36.8; O2SAT 87–97
[2023-04-23 04:44] LABS: Basophils # 0.1 10^3/uL (0.0-0.1); Basophils % 0.4 %; Eosinophils # 0.2 10^3/uL (0.0-0.8); Eosinophils % 1.7 %; Hematocrit 23.7 % (37-53); Lymphocytes # 0.8 10^3/uL (0.8-4.8); Lymphocytes % 6.2 %; Mean Corpuscular HGB Conc 30.8 g/dL (30-55); Mean Corpuscular Hemoglobin 25.9 pg (27-33); Mean Platelet Volume 10.5 fL (7.4-10.4); Monocytes # 0.8 10^3/uL (0.2-0.9); Monocytes % 6.2 %; Neutrophils # 10.07 10^3/uL (1.8-7.7); Neutrophils % 82.9 %; Nucleated Red Blood Cells % 0 %; Platelet Count 180 10^3/cmm (157-399); Red Blood Count 2.82 10^6/uL (3.85-5.65); Red Cell Distribution Width 20.1 % (12.1-15.1); White Blood Count 12.14 10^3/uL (3.29-11.43)
[2023-04-23 05:00] LABS: Lactate (Lactic Acid level) 0.7 mmol/L (0.5-2.2)
[2023-04-23 05:07] LABS: Blood Urea Nitrogen 62 mg/dL (8-23); Calcium 8.4 mg/dL (8.5-10.5); Carbon Dioxide 22 mmol/L (22-29); Chloride 104 mmol/L (98-107); Glucose 101 mg/dL (65-115); Osmolality Calculated 300 mOsm/kg (285-295); Sodium 136 mmol/L (136-145)
[2023-04-23 05:08] LABS: C Reactive Protein 217.4 mg/L (0.0-4.9); Magnesium 2.1 mg/dL (1.7-2.3); Phosphorus 4.3 mg/dL (2.5-4.5)
[2023-04-23] MEDS: metoprolol tartrate 50 mg Tablet PO ×2 (05:13→19:05)
[2023-04-23 05:19] LABS: NT Pro B Type Natriuretic Pept 7803 pg/mL (0-450); Procalcitonin 4.18 ng/mL (0-0.5)
[2023-04-23 06:47] LABS: Glucose Point of Care 104 mg/dL (70-110)
[2023-04-23] MEDS: ipratropium-albuterol 3 mL Neb INHALATION ×2 (08:14→14:00)
[2023-04-23] MEDS: budesonide 0.5 mg/2 mL Neb INHALATION ×2 (08:14→20:16)
[2023-04-23] MEDS: mupirocin oint 22 gm 1 APPLIC TOPICAL ×2 (08:48→20:58)
[2023-04-23] MEDS: vancomycin 1,000 MG in sodium chloride 0.9% 250 ML 250 MG IV (08:49)
[2023-04-23] MEDS: sennosides-docusate Tablet 1 TAB PO (08:49)
[2023-04-23] MEDS: sucralfate 1 gm Tablet PO ×2 (08:49→20:58)
[2023-04-23] MEDS: pantoprazole 40 mg SDV IVP ×2 (09:02→20:58)
[2023-04-23 11:04] LABS: Glucose Point of Care 145 mg/dL (70-110)
[2023-04-23] MEDS: insulin lispro 100 unit/1 mL SUBCUT ×3 (11:51→21:02)
[2023-04-23] MEDS: piperacillin-tazobactam 3.375 GM in sodium chloride 0.9% (plus) 50 ML IV ×2 (11:52→23:34)
--- NOTE | 2023-04-23 15:28 | ECG_ITS ---
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
--- NOTE | 2023-04-23 15:44 | PM.PN ---
Subjective Subjective: Patient was seen this morning, does report poor appetite, no abdominal pain, no nausea, no vomiting, no fevers Vitals/I&O/Wt Last Vital Signs Temp 97.8 F 04/23/23 14:15 Pulse 107 H 04/23/23 14:15 Resp 616 H 04/23/23 14:15 BP 132/78 04/23/23 14:15 Pulse Ox 94 04/23/23 14:00 O2 Del Method Nasal Cannula 04/23/23 14:00 O2 Flow Rate 2 04/23/23 14:00 04/23/23 04/23/23 04/23/23 06:59 14:59 22:59 Intake Total 50 / 2179.75 730 / 730 Output Total 700 / 1975 600 / 600 Balance -650 / 204.75 130 / 130 Physical Exam Const: COMMON NORMALS: no acute distress ORIENTATION/CONSCIOUSNESS: Yes awake, Yes oriented to person and Yes oriented to place; not oriented to time Resp: COMMON NORMALS: normal respiratory effort, No retractions, No use of accessory muscles and clear to auscultation bilaterally AUSCULTATION: clear to auscultation bilaterally Cardio: COMMON NORMALS: regular rate, regular rhythm, S1 normal heart sound present and S2 normal heart sound present RATE: regular rate RHYTHM: regular rhythm HEART SOUNDS: S1 normal heart sound present and S2 normal heart sound present GI: COMMON NORMALS: Normal to inspection, nondistended, normoactive bowel sounds present and non-tender Extremity: COMMON NORMALS: no pedal edema Neuro: SENSORIUM/ORIENTATION: Yes oriented to person, Yes oriented to place and No oriented to time Psych: COMMON NORMALS: mental status grossly normal Urinary Catheter Management: Sheikh: Cath Placed During This Visit: yes Reason for Continuing Indwelling Catheter: Other Urinary Catheter Date of Insertion: 04/20/23 Urinary Catheter Time of Insertion: 23:29 Data 04/23/23 04:34 04/23/23 04:34 Micro: Microbiology 04/20/23 20:37 Blood Culture - Preliminary Blood Providencia stuartii 04/20/23 19:28 Urine Culture - Final Urine,Clean Catch Klebsiella oxytoca Providencia stuartii 04/22/23 09:19 Blood Culture - Preliminary Blood NEGATIVE TO DATE 04/22/23 09:19 Blood Culture - Preliminary Blood NEGATIVE TO DATE A&P Assessment and plan (1) Sepsis: (2) Urinary tract infection: Qualifiers: Hematuria presence: with hematuria Urinary tract infection type: acute cystitis Qualified Code(s): N30.01 - Acute cystitis with hematuria (3) Leukocytosis: Qualifiers: Leukocytosis type: unspecified Qualified Code(s): D72.829 - Elevated white blood cell count, unspecified (4) Chronic kidney disease: Qualifiers: Chronic kidney disease stage: unspecified stage Qualified Code(s): N18.9 - Chronic kidney disease, unspecified (5) Chronic anemia: (6) Coronary artery disease: (7) Protein calorie malnutrition: (8) Physical deconditioning: (9) Muscle wasting: (10) Iron deficiency anemia: (11) Gram-negative bacteremia: (12) Hyperkalemia: (13) Acute kidney injury: (14) Atrial fibrillation with RVR: Plan - Sepsis from UTI. Patient on Zosyn, stop vancomycin - Gram negative bacteremia, awaiting identification follow repeat blood culture - UTI: Zosyn,vancomycin, IV fluids, Sheikh catheter. - Acute on chronic kidney disease: Actually patient does not look much off baseline. He is having difficulties urinating. Patient did have a recent renal ultrasound that shows no obstruction., Repeat renal ultrasound so far no significant obstruction, is developing fluid overload, creatinine plateaued at 3.5, hold off on further fluid therapy - Severely elevated WBC at 57,000. Resolving, patient's white blood cell count is typically elevated up to 13-14. - Anemia: Patient's normal is in the range of 9-10. However on 03/22/2023 patient had a hemoglobin of 5.2 the following day it was 9.0 and today it is 7.3, , s/p 1 unit PRBC, hemoglobin 6.7, will give another unit PRBC, hold Plavix, repeat hgb this afternoon, continue Protonix, Carafate - Physical deconditioning, protein calorie malnutrition, muscle wasting, consult dietary, speech therapy, PT OT -Hypomagnesemia we will replace IV -Hyperkalemia, status post 2 doses of IV insulin, D50, 1 dose of calcium gluconate, potassium this morning 5.3 -A-fib with RVR, continue metoprolol 50 mg twice daily, anticoagulate relatively contraindicated given anemia, has developed A-fib with RVR this afternoon, will place on amiodarone drip -2 diabetes mellitus, low-dose sliding scale Full code SCDs for DVT prophylaxis, anticoagulation relatively contraindicated given anemia Attestations Medical Necessity Statement*: Patient requires hospitalization for sepsis secondary to UTI, gram-negative bacteremia anemia, A-fib with RVR requiring amiodarone Diagnoses Sepsis A41.9 Urinary tract infection N30.01 Hematuria presence: with hematuria Urinary tract infection type: acute cystitis Leukocytosis D72.829 Leukocytosis type: unspecified Chronic kidney disease N18.9 Chronic kidney disease stage: unspecified stage Chronic anemia D64.9 Coronary artery disease I25.10 Protein calorie malnutrition E46 Physical deconditioning R53.81 Muscle wasting M62.50 Iron deficiency anemia D50.9 Gram-negative bacteremia R78.81 Hyperkalemia E87.5 Acute kidney injury N17.9 Atrial fibrillation with RVR I48.91
--- NOTE | 2023-04-23 17:40 | PC.NURSE ---
Nurse called report to CSU. Report delivered to [employer]. Patient transferred to CSU floor at 1740.
[2023-04-23 20:41] LABS: Glucose Point of Care 153 mg/dL (70-110)
[2023-04-24] VITALS (16 sets, daily range): BP systolic 130–178; BP diastolic 65–96; PULSE 69–103; RESP 16–29; TEMP 36.5–37.6; O2SAT 94–99
--- NOTE | 2023-04-24 01:31 | PC.NURSE ---
Patient converted from A-Fib with rvr to normal sinus rhythm 0100. Strip printed and put in chart.
[2023-04-24 04:43] LABS: Basophils # 0.1 10^3/uL (0.0-0.1); Basophils % 0.4 %; Eosinophils # 0.1 10^3/uL (0.0-0.8); Eosinophils % 0.8 %; Hematocrit 29.2 % (37-53); Lymphocytes # 1.1 10^3/uL (0.8-4.8); Lymphocytes % 6.6 %; Mean Corpuscular HGB Conc 31.2 g/dL (30-55); Mean Corpuscular Hemoglobin 25.9 pg (27-33); Mean Corpuscular Volume 83.2 fl (82-101); Mean Platelet Volume 10.6 fL (7.4-10.4); Monocytes # 1.5 10^3/uL (0.2-0.9); Monocytes % 8.7 %; Nucleated Red Blood Cells % 0 %; Platelet Count 196 10^3/cmm (157-399); Red Blood Count 3.51 10^6/uL (3.85-5.65); Red Cell Distribution Width 19.9 % (12.1-15.1); White Blood Count 16.72 10^3/uL (3.29-11.43)
[2023-04-24 04:59] LABS: Lactate (Lactic Acid level) 0.9 mmol/L (0.5-2.2)
[2023-04-24 05:12] LABS: C Reactive Protein 187.4 mg/L (0.0-4.9); Magnesium 1.8 mg/dL (1.7-2.3); Phosphorus 2.9 mg/dL (2.5-4.5)
[2023-04-24 05:16] LABS: Anion Gap 18.3 (5-19); Blood Urea Nitrogen 55 mg/dL (8-23); Calcium 8.4 mg/dL (8.5-10.5); Carbon Dioxide 21 mmol/L (22-29); Chloride 104 mmol/L (98-107); Glucose 92 mg/dL (65-115); Osmolality Calculated 301 mOsm/kg (285-295); Potassium 5.3 mmol/L (3.5-5.1); Sodium 138 mmol/L (136-145)
[2023-04-24 05:24] LABS: NT Pro B Type Natriuretic Pept 12800 pg/mL (0-450); Procalcitonin 2.51 ng/mL (0-0.5)
[2023-04-24 06:29] LABS: Glucose Point of Care 103 mg/dL (70-110)
[2023-04-24] MEDS: metoprolol tartrate 50 mg Tablet PO ×2 (06:42→17:54)
[2023-04-24] MEDS: budesonide 0.5 mg/2 mL Neb INHALATION ×2 (07:37→21:22)
[2023-04-24] MEDS: ipratropium-albuterol 3 mL Neb INHALATION ×3 (07:38→21:22)
[2023-04-24] MEDS: pantoprazole 40 mg SDV IVP ×2 (07:58→20:33)
[2023-04-24] MEDS: sucralfate 1 gm Tablet PO ×2 (07:58→20:27)
[2023-04-24] MEDS: sennosides-docusate Tablet 1 TAB PO (07:58)
[2023-04-24] MEDS: FUROsemide 10 mg/mL SDV 4mL 40 MG IVP (09:11)
[2023-04-24] MEDS: amiodarone 200 mg Tablet 400 MG PO ×2 (09:11→17:52)
--- NOTE | 2023-04-24 12:06 | P.PN_ITS ---
Subjective Subjective: Patient was seen this morning, he is alert to person, place, not to time, he gives me the thumbs up that he is feeling well, he is very hard of hearing, afebrile overnight, normotensive, Vitals/I&O/Wt Last Vital Signs Temp 97.7 F 04/24/23 11:49 Pulse 72 04/24/23 11:49 Resp 25 H 04/24/23 11:49 BP 146/79 04/24/23 11:49 Pulse Ox 97 04/24/23 11:49 O2 Del Method Nasal Cannula 04/24/23 11:49 O2 Flow Rate 4 04/24/23 07:39 04/23/23 04/24/23 04/24/23 22:59 06:59 14:59 Intake Total 640 / 1370 470 / 1840 720 / 720 Output Total 2750 / 3350 600 / 3950 650 / 650 Balance -0 / -1979 -130 / -0 70 / 70 Physical Exam Const: COMMON NORMALS: no acute distress Resp: COMMON NORMALS: normal respiratory effort, No retractions, No use of accessory muscles and clear to auscultation bilaterally AUSCULTATION: clear to auscultation bilaterally Cardio: COMMON NORMALS: regular rate, regular rhythm, S1 normal heart sound present and S2 normal heart sound present RATE: regular rate RHYTHM: regular rhythm HEART SOUNDS: S1 normal heart sound present and S2 normal heart sound present GI: COMMON NORMALS: Normal to inspection, nondistended, normoactive bowel sounds present and non-tender Extremity: COMMON NORMALS: no pedal edema Psych: COMMON NORMALS: mental status grossly normal Urinary Catheter Management: Sheikh: Cath Placed During This Visit: yes Reason for Continuing Indwelling Catheter: Other Urinary Catheter Date of Insertion: 04/20/23 Urinary Catheter Time of Insertion: 23:29 Data 04/24/23 03:36 04/24/23 03:36 Micro: Microbiology 04/20/23 20:37 Blood Culture - Preliminary Blood Providencia stuartii 04/20/23 19:28 Urine Culture - Final Urine,Clean Catch Klebsiella oxytoca Providencia stuartii 04/22/23 09:19 Blood Culture - Preliminary Blood NEGATIVE TO DATE 04/22/23 09:19 Blood Culture - Preliminary Blood NEGATIVE TO DATE A&P Assessment and plan (1) Sepsis: (2) Urinary tract infection: Qualifiers: Hematuria presence: with hematuria Urinary tract infection type: acute cystitis Qualified Code(s): N30.01 - Acute cystitis with hematuria (3) Leukocytosis: Qualifiers: Leukocytosis type: unspecified Qualified Code(s): D72.829 - Elevated white blood cell count, unspecified (4) Chronic kidney disease: Qualifiers: Chronic kidney disease stage: unspecified stage Qualified Code(s): N18.9 - Chronic kidney disease, unspecified (5) Chronic anemia: (6) Coronary artery disease: (7) Protein calorie malnutrition: (8) Physical deconditioning: (9) Muscle wasting: (10) Iron deficiency anemia: (11) Gram-negative bacteremia: (12) Hyperkalemia: (13) Acute kidney injury: (14) Atrial fibrillation with RVR: Plan - Sepsis from UTI. Patient on Zosyn -Blood culture showing providencia, klebsiella, providencia is multidrug- resistant, given his kidney function I do not believe Bactrim would be a good option, will likely need PICC line to be placed tomorrow once blood cultures -48 hours, discharged on Zosyn 3.375 g IV every 12 hours - UTI: Zosyn, Sheikh catheter. - Acute on chronic kidney disease: Actually patient does not look much off baseline. He is having difficulties urinating. Patient did have a recent renal ultrasound that shows no obstruction., Repeat renal ultrasound so far no significant obstruction, is developing fluid overload, creatinine plateaued at 3.5,now 3.2 - Severely elevated WBC at 57,000. Resolving, patient's white blood cell count is typically elevated up to 13-14. - Anemia: Patient's normal is in the range of 9-10. However on 03/22/2023 patient had a hemoglobin of 5.2 the following day it was 9.0 and today it is 7.3, , s/p 2 unit PRBC, hgb 9.1, hold Plavix,continue Protonix, Carafate - Physical deconditioning, protein calorie malnutrition, muscle wasting, consult dietary, speech therapy, PT OT -Hypomagnesemia, monitor -Hyperkalemia, status post 2 doses of IV insulin, D50, 1 dose of calcium gluconate, potassium this morning 5.3 -A-fib with RVR, continue metoprolol 50 mg twice daily, off amiodarone drip, currently on amiodarone 400 mg twice daily anticoagulate relatively contraindicated given anemia, has developed A-fib with RVR this afternoon, will place on amiodarone drip -2 diabetes mellitus, low-dose sliding scale Full code SCDs for DVT prophylaxis, anticoagulation relatively contraindicated given anemia Plan for today, up out of bed, PT OT, continue Zosyn, will place PICC line tomorrow for IV Zosyn 3.37 g IV every 12 hours starting on Tuesday, monitor heart rates, transition off amiodarone drip to p.o. amiodarone monitor hemoglobin, monitor kidney function, white blood cell count up to 16.72 Attestations Medical Necessity Statement*: Patient requires hospitalization for Klebsiella procidentia UTI and bacteremia w ith KEEGAN, with A-fib with RVR Diagnoses Sepsis A41.9 Urinary tract infection N30.01 Hematuria presence: with hematuria Urinary tract infection type: acute cystitis Leukocytosis D72.829 Leukocytosis type: unspecified Chronic kidney disease N18.9 Chronic kidney disease stage: unspecified stage Chronic anemia D64.9 Coronary artery disease I25.10 Protein calorie malnutrition E46 Physical deconditioning R53.81 Muscle wasting M62.50 Iron deficiency anemia D50.9 Gram-negative bacteremia R78.81 Hyperkalemia E87.5 Acute kidney injury N17.9 Atrial fibrillation with RVR I48.91
[2023-04-24 12:15] LABS: Glucose Point of Care 122 mg/dL (70-110)
[2023-04-24] MEDS: piperacillin-tazobactam 3.375 GM in sodium chloride 0.9% (plus) 50 ML IV ×2 (13:06→22:14)
[2023-04-24] MEDS: mupirocin oint 22 gm 1 APPLIC TOPICAL ×3 (15:54→21:05)
[2023-04-24 16:25] LABS: Glucose Point of Care 146 mg/dL (70-110)
[2023-04-24 21:14] LABS: Glucose Point of Care 218 mg/dL (70-110)
[2023-04-25] VITALS (14 sets, daily range): BP systolic 112–181; BP diastolic 52–82; PULSE 62–109; RESP 16–25; TEMP 36.3–37.1; O2SAT 98–100
[2023-04-25 04:25] LABS: Basophils # 0.1 10^3/uL (0.0-0.1); Basophils % 0.4 %; Eosinophils # 0.1 10^3/uL (0.0-0.8); Eosinophils % 0.7 %; Hematocrit 28.7 % (37-53); Lymphocytes % 6.9 %; Mean Corpuscular HGB Conc 31.4 g/dL (30-55); Mean Corpuscular Hemoglobin 26.1 pg (27-33); Mean Corpuscular Volume 83.2 fl (82-101); Monocytes # 1.3 10^3/uL (0.2-0.9); Monocytes % 8.9 %; Neutrophils # 11.21 10^3/uL (1.8-7.7); Neutrophils % 78.2 %; Nucleated Red Blood Cells % 0 %; Platelet Count 205 10^3/cmm (157-399); Red Blood Count 3.45 10^6/uL (3.85-5.65); Red Cell Distribution Width 20.4 % (12.1-15.1); White Blood Count 14.34 10^3/uL (3.29-11.43)
[2023-04-25] MEDS: metoprolol tartrate 50 mg Tablet PO ×2 (05:19→17:29)
[2023-04-25 06:43] LABS: Glucose Point of Care 107 mg/dL (70-110)
[2023-04-25] MEDS: ipratropium-albuterol 3 mL Neb INHALATION ×3 (07:46→19:36)
[2023-04-25] MEDS: budesonide 0.5 mg/2 mL Neb INHALATION ×2 (07:46→19:36)
[2023-04-25] MEDS: amiodarone 200 mg Tablet 400 MG PO ×2 (08:42→17:29)
[2023-04-25] MEDS: sucralfate 1 gm Tablet PO ×2 (08:42→20:10)
[2023-04-25] MEDS: sennosides-docusate Tablet 1 TAB PO (08:42)
[2023-04-25] MEDS: mupirocin oint 22 gm 1 APPLIC TOPICAL ×3 (08:42→20:11)
[2023-04-25] MEDS: pantoprazole 40 mg SDV IVP ×2 (08:42→20:09)
--- NOTE | 2023-04-25 09:01 | USR_ITS ---
PROCEDURE INFORMATION: Exam: US Duplex Left Upper Extremity Veins, Limited Exam date and time: 04/25/2023 10:39 AM Age: 87 years old Clinical indication: Swelling (edema) of limb; Lower extremity, left; Additional info: Possible thrombus to lfa TECHNIQUE: Imaging protocol: Real-time duplex ultrasound of the left extremity with 2-D garcia scale, color Doppler flow and spectral waveform analysis including responses to compression and other maneuvers (when performed) with image documentation. Limited exam focused on the left upper extremity veins. COMPARISON[place] [id number] 04/20/2023 8:57 PM FINDINGS: Left deep veins: Unremarkable. Axillary and brachial veins are patent throughout without thrombus. Normal Doppler waveforms. Normal compressibility and/or augmentation response. Visualized internal jugular and subclavian veins are patent. Superficial veins: Unremarkable. Visualized cephalic and basilic veins are patent without thrombus. Soft tissues: Unremarkable. US/[place] [id number] IMPRESSION: No evidence of deep vein thrombosis. Note: Several images are incorrectly labeled right . Only the left upper extremity was evaluated.
[2023-04-25 11:04] LABS: Blood Urea Nitrogen 58 mg/dL (8-23); Calcium 8.7 mg/dL (8.5-10.5); Carbon Dioxide 22 mmol/L (22-29); Chloride 103 mmol/L (98-107); Glucose 98 mg/dL (65-115); NT Pro B Type Natriuretic Pept 12449 pg/mL (0-450); Osmolality Calculated 302 mOsm/kg (285-295); Sodium 138 mmol/L (136-145)
[2023-04-25 11:11] LABS: Glucose Point of Care 157 mg/dL (70-110)
--- NOTE | 2023-04-25 11:26 | PC.SOCIAL ---
IMM update: pg 2 of IMM dated and reviewed with pt. Copy provided and dated, initialed and placed in chart. 850 am
[2023-04-25] MEDS: insulin lispro 100 unit/1 mL SUBCUT ×2 (12:03→17:29)
[2023-04-25] MEDS: piperacillin-tazobactam 3.375 GM in sodium chloride 0.9% (plus) 50 ML IV ×2 (12:04→22:01)
--- NOTE | 2023-04-25 15:22 | P.PN_ITS ---
Subjective Subjective: WBC downtrending at 14. Hemoglobin at 9, stable. Blood culture remains negative from April 22, 2023. Noted to have some infiltration over his arm today. Venous duplex without evidence of any superficial or deep thrombus. Medications: Reviewed: Yes Vitals/I&O/Wt Last Vital Signs Temp 98.5 F 04/25/23 12:00 Pulse 74 04/25/23 13:12 Resp 16 04/25/23 13:12 BP 130/52 04/25/23 12:00 Pulse Ox 100 04/25/23 13:12 O2 Del Method Nasal Cannula 04/25/23 13:12 O2 Flow Rate 3 04/25/23 13:12 04/25/23 04/25/23 04/25/23 06:59 14:59 22:59 Intake Total 50 / 2233 960 / 960 Output Total 400 / 2900 1230 / 1230 Balance -350 / -667 -270 / -270 Physical Exam Narrative: General: Chronically ill-appearing, frail, extremely hard of hearing which limits his exam HEENT: PERRLA, pupils bilaterally equal and reactive, pallors not present Chest: Coarse crackles to auscultation CVS: S1-S2 regular, no murmurs, no tachycardia, no gallops, no rubs Abdomen: Soft, nontender, no organomegaly, bowel sounds present Neuro: Moving all extremities spontaneously, extremely difficult to follow commands Urinary Catheter Management: Sheikh: Cath Placed During This Visit: yes Reason for Continuing Indwelling Catheter: Other Urinary Catheter Date of Insertion: 04/20/23 Urinary Catheter Time of Insertion: 23:29 Data 04/25/23 03:27 04/25/23 03:27 Micro: Microbiology 04/25/23 06:00 Stool Lactoferrin - Final Stool Enteric Pathogens (PCR) - Final Parasite Antigen Panel - Final Occult Blood (FIT) - Final 04/20/23 20:37 Blood Culture - Final Blood Providencia stuartii [facility] RX --------- ------ * Amikacin <=16 S * Amoxicillin/Clavulanate >16/8 R * Ampicillin >16 R * Ampicillin/Sulbactam 16/8 I * Aztreonam <=4 S * Cefepime <=8 S * Ceftriaxone <=1 S * Cefuroxime 16 I * Ciprofloxacin >2 R * Gentamicin >8 R * Imipenem 2 I * Levofloxacin >4 R * Tetracycline >8 R * Tobramycin >8 R * Trimethoprim/Sulfamethoxazole <=2/38 S * Piperacillin/Tazobactam <=16 S Kleb oxyto P stuartii [facility] RX [facility] RX --------- ------ --------- ------ * Amikacin <=16 S <=16 S * Amoxicillin/Clavulanate <=8/4 S >16/8 R * Ampicillin >16 R >16 R * Ampicillin/Sulbactam <=8/4 S >16/8 R * Aztreonam <=4 S <=4 S * Cefepime <=8 S <=8 S * Ceftriaxone <=1 S 8 R * Cefuroxime <=4 S >16 R * Ciprofloxacin <=1 S >2 R * Gentamicin <=2 S 8 R * Imipenem <=1 S 2 I * Levofloxacin <=2 S >4 R * Nitrofurantoin <=32 S >64 R * Tetracycline <=4 S >8 R * Tobramycin 8 R * Trimethoprim/Sulfamethoxazole <=2/38 S <=2/38 S * Piperacillin/Tazobactam <=16 S <=16 S Other data: Launch?[place] [address] [place] Scan Report Signed Patient: Jimenez Green Unit #: [id number] : 1935 Age/Sex: 87 / M ADM Date: 04/20/23 Loc: ER Room/Bed: Attending Dr: Ordering Provider/Ordering MD: Geovani Price DO Date of Service: 04/20/23 Procedure(s): CT chest abdpel [id number] Accession Number(s): [id number] Report Number: [id number] PROCEDURE INFORMATION: Exam: CT Chest Without Contrast; Diagnostic Exam date and time: 04/20/2023 8:57 PM Age: 87 years old Clinical indication: Abdominal pain; Generalized; Other: Abdomen; Additional info: Leukocytosis, abd pain, UTI, anemia TECHNIQUE: Imaging protocol: Diagnostic computed tomography of the chest without contrast. Radiation optimization: All CT scans at this facility use at least one of these dose optimization techniques: automated exposure control; mA and/or kV adjustment per patient size (includes targeted exams where dose is matched to clinical indication); or iterative reconstruction. REPORTING DATA: Count of CT and Cardiac NM exams in prior 12 months: This patient has received 0 known CTs and 0 known cardiac nuclear medicine studies in the 12 months prior to the current study. COMPARISON: CT chest con [id number] 10/07/2020 4:11 AM RADIATION DOSE METRICS: Total DLP (mGy-cm): 484.55 FINDINGS: Lungs: Mild nodular opacities in the inferior segment lingula and left lower lobe suggesting mild tuberculosis versus other inflammatory condition. Pleural spaces: Bilateral apical pleural and/or parenchymal scarring. Heart: Unremarkable. No cardiomegaly. No pericardial effusion. Coronary arteries: Severe calcified coronary artery disease. Lymph nodes: Calcified right hilar nodes and/or mediastinal nodes and/or lung granulomas consistent with old granulomatous disease. Vasculature: Calcification of the thoracic aorta and/or great vessels consistent with atherosclerotic vessel disease. Bones/joints: Unremarkable. No acute fracture. Soft tissues: Unremarkable. PROCEDURE INFORMATION: Exam: CT Abdomen And Pelvis Without Contrast Exam date and time: 04/20/2023 8:57 PM Age: 87 years old Clinical indication: Abdominal pain; Generalized; Other: Abdomen; Additional info: Leukocytosis, abd pain, UTI, anemia TECHNIQUE: Imaging protocol: Computed tomography of the abdomen and pelvis without contrast. Radiation optimization: All CT scans at this facility use at least one of these dose optimization techniques: automated exposure control; mA and/or kV adjustment per patient size (includes targeted exams where dose is matched to clinical indication); or iterative reconstruction. REPORTING DATA: Count of CT and Cardiac NM exams in prior 12 months: This patient has received 0 known CTs and 0 known cardiac nuclear medicine studies in the 12 months prior to the current study. COMPARISON: CT abdomen pelvis con [id number] 03/19/2022 12:14 AM RADIATION DOSE METRICS: Total DLP (mGy-cm): 484.55 FINDINGS: Liver: Normal. No mass. Gallbladder and bile ducts: Normal. No calcified stones. No ductal dilation. Pancreas: Normal. No ductal dilation. Spleen: Normal. No splenomegaly. Adrenal glands: Normal. No mass. Kidneys and ureters: Left renal simple cyst measuring >1.0 cm. Stomach and bowel: Severe colonic diverticulosis. Appendix: No evidence of appendicitis. Intraperitoneal space: Unremarkable. No free air. No significant fluid collection. Vasculature: Calcification of the abdominal aorta and/or iliac arteries consistent with atherosclerotic vessel disease. Lymph nodes: Unremarkable. No enlarged lymph nodes. Urinary bladder: Unremarkable as visualized. Reproductive: Enlarged prostate greater than or equal to 5.0 cm; correlation with PSA levels is recommended. Bones/joints: Unremarkable. No acute fracture. Soft tissues: Unremarkable. CT/[place] [id number] IMPRESSION: 1. ? Severe calcified coronary artery disease. 2. ? Mild nodular opacities in the inferior segment lingula and left lower lobe suggesting mild tuberculosis versus other inflammatory condition. ? A&P Assessment and plan (1) Sepsis: (2) Urinary tract infection: Qualifiers: Hematuria presence: with hematuria Urinary tract infection type: acute cystitis Qualified Code(s): N30.01 - Acute cystitis with hematuria (3) Leukocytosis: Qualifiers: Leukocytosis type: unspecified Qualified Code(s): D72.829 - Elevated white blood cell count, unspecified (4) Chronic kidney disease: Qualifiers: Chronic kidney disease stage: unspecified stage Qualified Code(s): N18.9 - Chronic kidney disease, unspecified (5) Chronic anemia: (6) Coronary artery disease: (7) Protein calorie malnutrition: (8) Physical deconditioning: (9) Muscle wasting: (10) Iron deficiency anemia: (11) Gram-negative bacteremia: (12) Hyperkalemia: (13) Acute kidney injury: (14) Atrial fibrillation with RVR: Plan # Sepsis Present on admission, please see H&P from admitting provider for criteria and initial management of sepsis. Source of sepsis is from UTI Blood culture showing providencia staurti Urine cx with klebsiella oxytoca and providencia Currently patient is on treatment with piperacillin/tazobactam based on susceptibilities. We will continue the same. Appears to be clinically improving with currently being afebrile, leukocytosis trending down. Plan to continue piperacillin/tazobactam after discharge total duration to be 14 days from clearance of bacteremia. # chronic kidney disease: CT chest abdomen and pelvis performed on this admission did not show any signs of obstructive pyelonephritis. - Severely elevated WBC at 57,000 upon admission which is now resolving. -Creatinine is currently at recent baseline Antibiotics dose adjusted based on creatinine clearance. # A-fib with RVR Continue metoprolol 50 mg twice daily Continue amiodarone 400 mg twice daily anticoagulate relatively contraindicated given anemia # Incidentally noted infiltrates on CT chest read to be mild tuberculosis. Read by Dr. Keys initially, called [facility] rad to discuss , Dr. Keys was not available, discussed with Dr. Schaefer Instead. Findings concerning for tuberculosis currently include a calcified lymph node with surrounding lung infiltrates. No similar granulomatous infiltration is seen within the liver or spleen which would make an alternate diagnosis such as histoplasmosis less likely. Patient has no past history of TB. I am uncertain of his PPD status at the alf. Clinically very low suspicion of pulmonary tuberculosis, however given suspicious CT findings after discussion with to radiologist, will place patient on isolation and rule out pulmonary TB by checking sputum AFB and MTB PCR x3 from specimens taken 8-hour apart. Check quantiferon Full code SCDs for DVT prophylaxis, anticoagulation relatively contraindicated given anemia All updates discussed with his son. Attestations Medical Necessity Statement*: Patient appears to be clinically improving. Anticipating discharge on IV Zosyn back to alf, however given findings on CT of his chest, pulmonary TB needs to be excluded before going back to a nursing facility for public health purposes. Coding Level of Care Code Acute Code for Chg Fwd High MDM includes number and complexity of problems actively addressed during encounter, amount and/or complexity of data reviewed/ordered and described risk of complication, morbidity or mortality of management as documented Diagnoses Sepsis A41.9 Urinary tract infection N30.01 Hematuria presence: with hematuria Urinary tract infection type: acute cystitis Leukocytosis D72.829 Leukocytosis type: unspecified Chronic kidney disease N18.9 Chronic kidney disease stage: unspecified stage Chronic anemia D64.9 Coronary artery disease I25.10 Protein calorie malnutrition E46 Physical deconditioning R53.81 Muscle wasting M62.50 Iron deficiency anemia D50.9 Gram-negative bacteremia R78.81 Hyperkalemia E87.5 Acute kidney injury N17.9 Atrial fibrillation with RVR I48.91
[2023-04-25 17:06] LABS: Glucose Point of Care 164 mg/dL (70-110)
[2023-04-25] MEDS: sodium chloride 3.5% neb 4 mL Neb INHALATION (19:36)
[2023-04-25 21:47] LABS: Glucose Point of Care 177 mg/dL (70-110)
[2023-04-26] VITALS (12 sets, daily range): BP systolic 109–146; BP diastolic 49–78; PULSE 59–71; RESP 16–23; TEMP 36.5–36.8; O2SAT 98–100
[2023-04-26] MEDS: metoprolol tartrate 50 mg Tablet PO ×2 (05:57→17:32)
[2023-04-26 06:18] LABS: Glucose Point of Care 102 mg/dL (70-110)
[2023-04-26] MEDS: budesonide 0.5 mg/2 mL Neb INHALATION ×2 (07:57→20:12)
[2023-04-26] MEDS: ipratropium-albuterol 3 mL Neb INHALATION ×3 (07:57→20:12)
[2023-04-26] MEDS: pantoprazole 40 mg SDV IVP ×2 (10:01→20:14)
[2023-04-26] MEDS: sucralfate 1 gm Tablet PO ×2 (10:02→20:13)
[2023-04-26] MEDS: sennosides-docusate Tablet 1 TAB PO (10:02)
[2023-04-26] MEDS: amiodarone 200 mg Tablet 400 MG PO ×2 (10:02→17:31)
[2023-04-26] MEDS: piperacillin-tazobactam 3.375 GM in sodium chloride 0.9% (plus) 50 ML IV ×2 (10:03→22:14)
[2023-04-26 13:45] LABS: Glucose Point of Care 142 mg/dL (70-110)
[2023-04-26] MEDS: insulin lispro 100 unit/1 mL SUBCUT ×2 (13:57→17:31)
[2023-04-26] MEDS: mupirocin oint 22 gm 1 APPLIC TOPICAL ×3 (13:58→20:13)
[2023-04-26 17:09] LABS: Glucose Point of Care 147 mg/dL (70-110)
--- NOTE | 2023-04-26 17:17 | P.PN_ITS ---
Subjective Subjective: Sputum specimen was able to be collected and have been sent out for testing. Laboratory given today. Blood culture from June 20, 2023 additional set reported positive today with gram-negative rods. Blood culture from April 22 thus far remains negative to date. Medications: Reviewed: Yes Vitals/I&O/Wt Last Vital Signs Temp 98.2 F 04/26/23 08:00 Pulse 71 04/26/23 16:00 Resp 23 H 04/26/23 16:00 BP 128/56 04/26/23 16:00 Pulse Ox 100 04/26/23 16:00 O2 Del Method Nasal Cannula 04/26/23 16:00 O2 Flow Rate 3 04/26/23 14:14 04/26/23 04/26/23 04/26/23 06:59 14:59 22:59 Intake Total 200 / 2320 890 / 890 Output Total 250 / 2835 400 / 400 Balance -50 / -515 490 / 490 Physical Exam Narrative: General: Chronically ill-appearing, frail, extremely hard of hearing which limits his exam HEENT: PERRLA, pupils bilaterally equal and reactive, pallors not present Chest: Coarse crackles to auscultation CVS: S1-S2 regular, no murmurs, no tachycardia, no gallops, no rubs Abdomen: Soft, nontender, no organomegaly, bowel sounds present Neuro: Moving all extremities spontaneously, extremely difficult to follow commands Urinary Catheter Management: Sheikh: Cath Placed During This Visit: yes Reason for Continuing Indwelling Catheter: Other Urinary Catheter Date of Insertion: 04/20/23 Urinary Catheter Time of Insertion: 23:29 Data 04/25/23 03:27 04/25/23 03:27 Other Labs: April 25, 2023 QuantiFERON pending 3 sputum specimen sent out to [facility] lab taken 8 hours apart for AFB culture and MTB PCR testing Micro: Microbiology 04/20/23 20:42 Blood Culture - Preliminary Blood Gram Negative Rods 04/25/23 06:00 Stool Lactoferrin - Final Stool Enteric Pathogens (PCR) - Final Parasite Antigen Panel - Final Occult Blood (FIT) - Final A&P Assessment and plan (1) Sepsis: (2) Urinary tract infection: Qualifiers: Hematuria presence: with hematuria Urinary tract infection type: acute cystitis Qualified Code(s): N30.01 - Acute cystitis with hematuria (3) Leukocytosis: Qualifiers: Leukocytosis type: unspecified Qualified Code(s): D72.829 - Elevated white blood cell count, unspecified (4) Chronic kidney disease: Qualifiers: Chronic kidney disease stage: unspecified stage Qualified Code(s): N18.9 - Chronic kidney disease, unspecified (5) Chronic anemia: (6) Coronary artery disease: (7) Protein calorie malnutrition: (8) Physical deconditioning: (9) Muscle wasting: (10) Iron deficiency anemia: (11) Gram-negative bacteremia: (12) Hyperkalemia: (13) Acute kidney injury: (14) Atrial fibrillation with RVR: Plan # Sepsis Present on admission, please see H&P from admitting provider for criteria and initial management of sepsis. Source of sepsis is from UTI Blood culture showing providencia staurti additional blood culture from 830 reported positive with gram-negative rods today, delayed growth, awaiting further identification Thus far blood cultures from April 22 are negative to date. Urine cx with klebsiella oxytoca and providencia Currently patient is on treatment with piperacillin/tazobactam based on susceptibilities. We will continue the same. Appears to be clinically improving with currently being afebrile, leukocytosis trending down. Plan to continue piperacillin/tazobactam after discharge total duration to be 14 days from clearance of bacteremia. Plan transition back to SNF. # chronic kidney disease: CT chest abdomen and pelvis performed on this admission did not show any signs of obstructive pyelonephritis. - Severely elevated WBC at 57,000 upon admission which is now resolving. -Creatinine is currently at recent baseline of 3.5 Antibiotics dose adjusted based on creatinine clearance. # A-fib with RVR Continue metoprolol 50 mg twice daily Continue amiodarone 400 mg twice daily Heart rate currently ranging between 71 to 100 bpm, anticoagulate relatively contraindicated given anemia # Incidentally noted infiltrates on CT chest read to be mild tuberculosis. Read by Dr. Keys initially, called [facility] to discuss , Dr. Keys was not available, discussed with Dr. Schaefer Instead. Findings concerning for tuberculosis currently include a calcified lymph node with surrounding lung infiltrates. No similar granulomatous infiltration is seen within the liver or spleen which would make an alternate diagnosis such as histoplasmosis less likely. Patient has no past history of TB. [facility]. Clinically very low suspicion of pulmonary tuberculosis, however given suspicious CT findings after discussion with to radiologist, will place patient on isolation and rule out pulmonary TB by checking sputum AFB and MTB PCR x3 from specimens taken 8-hour apart. sent to state lab today Check quantiferon Full code SCDs for DVT prophylaxis, anticoagulation relatively contraindicated given anemia All updates discussed with his son. Attestations Medical Necessity Statement*: Awaiting MTB rule out, continued need of iv abx Coding Level of Care Code Acute Code for Chg Fwd Diagnoses Sepsis A41.9 Urinary tract infection N30.01 Hematuria presence: with hematuria Urinary tract infection type: acute cystitis Leukocytosis D72.829 Leukocytosis type: unspecified Chronic kidney disease N18.9 Chronic kidney disease stage: unspecified stage Chronic anemia D64.9 Coronary artery disease I25.10 Protein calorie malnutrition E46 Physical deconditioning R53.81 Muscle wasting M62.50 Iron deficiency anemia D50.9 Gram-negative bacteremia R78.81 Hyperkalemia E87.5 Acute kidney injury N17.9 Atrial fibrillation with RVR I48.91
[2023-04-26 21:52] LABS: Glucose Point of Care 187 mg/dL (70-110)
[2023-04-27] VITALS (14 sets, daily range): BP systolic 113–151; BP diastolic 51–72; PULSE 59–68; RESP 14–21; TEMP 36.7–36.8; O2SAT 98–100
[2023-04-27 04:16] LABS: Hematocrit 29.2 % (37-53); Mean Corpuscular HGB Conc 30.8 g/dL (30-55); Mean Corpuscular Hemoglobin 25.8 pg (27-33); Mean Corpuscular Volume 83.7 fl (82-101); Mean Platelet Volume 10.6 fL (7.4-10.4); Platelet Count 245 10^3/cmm (157-399); Red Blood Count 3.49 10^6/uL (3.85-5.65); Red Cell Distribution Width 20.8 % (12.1-15.1); White Blood Count 14.44 10^3/uL (3.29-11.43)
[2023-04-27 04:40] LABS: Alanine Aminotransferase 56 U/L (0-41); Albumin Level 3.1 g/dL (3.5-5.2); Alkaline Phosphatase 200 U/L (40-130); Anion Gap 15.5 (5-19); Aspartate Amino Transferase 20 U/L (0-40); Blood Urea Nitrogen 65 mg/dL (8-23); Calcium 8.9 mg/dL (8.5-10.5); Carbon Dioxide 23 mmol/L (22-29); Chloride 105 mmol/L (98-107); Globulin 3.4 g/dL (1.3-4.6); Glucose 102 mg/dL (65-115); Osmolality Calculated 305 mOsm/kg (285-295); Potassium 5.5 mmol/L (3.5-5.1); Sodium 138 mmol/L (136-145); Total Bilirubin 0.3 mg/dL (0.15-1.2); Total Protein 6.5 g/dL (6.6-8.7)
[2023-04-27 04:53] LABS: Slide Review Slide Review Perform
[2023-04-27 04:54] LABS: Absolute Segmented Neutrophil 11.7 10/cmm (1.6-7.1); Eosinophils 0 %; Lymphocytes 9 %; Monocytes Absolute 0.9 10^3/cmm (0.1-0.6); Platelet Estimate Normal (Normal); Segmented Neutrophils 81 %; Total Cells Counted 100 (0-100)
[2023-04-27] MEDS: metoprolol tartrate 50 mg Tablet PO ×2 (05:06→17:23)
[2023-04-27 07:35] LABS: Glucose Point of Care 100 mg/dL (70-110)
[2023-04-27] MEDS: amiodarone 200 mg Tablet 400 MG PO (07:59)
[2023-04-27] MEDS: pantoprazole 40 mg SDV IVP (07:59)
[2023-04-27] MEDS: sennosides-docusate Tablet 1 TAB PO (07:59)
[2023-04-27] MEDS: sucralfate 1 gm Tablet PO ×2 (08:00→20:51)
[2023-04-27] MEDS: ipratropium-albuterol 3 mL Neb INHALATION ×3 (08:14→19:35)
[2023-04-27] MEDS: budesonide 0.5 mg/2 mL Neb INHALATION ×2 (08:14→19:35)
[2023-04-27] MEDS: mupirocin oint 22 gm 1 APPLIC TOPICAL ×3 (10:59→20:51)
[2023-04-27] MEDS: piperacillin-tazobactam 3.375 GM in sodium chloride 0.9% (plus) 50 ML IV ×2 (11:00→23:03)
[2023-04-27 12:04] LABS: Glucose Point of Care 132 mg/dL (70-110)
--- NOTE | 2023-04-27 16:52 | US_ITS ---
WS: [id number] RIGHT UPPER QUADRANT ULTRASOUND HISTORY: elevated ALT, ALP COMPARISON: Noncontrast CT 04/20/2023. Liver: 16.7 cm in length. Liver is measuring top normal size. No mass or bile duct dilatation. Portal Vein: Normal hepatopetal flow with monophasic waveform. Gallbladder: Mildly contracted gallbladder with diffuse wall thickening. No pericholecystic fluid and no Summers's sign. Probably due to nonfasting state. No cholelithiasis. CBD: 0.4 cm Pancreas: Normal size. Right kidney: 8.7 cm in length. Kidney is measuring low normal. There is mild diffuse cortical thinni ng. No acquired cyst super pole measures 1.8 x 2.0 x 1.8 cm. Aorta and IVC: Unremarkable abdominal aorta and IVC. No ascites. IMPRESSION: 1. No cholelithiasis. 2. Gallbladder slightly contracted with diffuse wall thickening. This may be due to nonfasting state. No evidence for acute cholecystitis. 3. Low normal size RIGHT kidney with a small simple cyst.
--- NOTE | 2023-04-27 16:52 | PM.PN ---
Subjective Subjective: Denies any new complaints. We are awaiting MTB PCR to return from state lab. Creatinine is improving 2.8. Hyperkalemia today. Mildly increased liver enzymes with ALT 56 alkaline phosphatase of 200. Medications: Reviewed: Yes Vitals/I&O/Wt Last Vital Signs Temp 98.0 F 04/27/23 16:00 Pulse 61 04/27/23 16:00 Resp 18 04/27/23 16:00 BP 115/54 04/27/23 16:00 Pulse Ox 100 04/27/23 16:00 O2 Del Method Nasal Cannula 04/27/23 16:00 O2 Flow Rate 3 04/27/23 14:00 04/27/23 04/27/23 04/27/23 06:59 14:59 22:59 Intake Total 530 / 1420 840 / 840 Output Total 250 / 1300 Balance 280 / 120 840 / 840 Physical Exam Narrative: General: Chronically ill-appearing, frail, extremely hard of hearing which limits his exam HEENT: PERRLA, pupils bilaterally equal and reactive, pallors not present Chest: Coarse crackles to auscultation CVS: S1-S2 regular, no murmurs, no tachycardia, no gallops, no rubs Abdomen: Soft, nontender, no organomegaly, bowel sounds present Neuro: Moving all extremities power 5 x 5, does not appear to be in any acute distress Urinary Catheter Management: Sheikh: Cath Placed During This Visit: yes Reason for Continuing Indwelling Catheter: Accurate Measurement of Urinary Output in Critically Ill Patients Urinary Catheter Date of Insertion: 04/20/23 Urinary Catheter Time of Insertion: 23:29 Data 04/27/23 03:40 04/27/23 03:40 Micro: Microbiology 04/22/23 09:19 Blood Culture - Final Blood NO GROWTH AFTER 5 DAYS 04/22/23 09:19 Blood Culture - Final Blood NO GROWTH AFTER 5 DAYS 04/20/23 20:42 Blood Culture - Preliminary Blood Gram Negative Rods A&P Assessment and plan (1) Sepsis: (2) Urinary tract infection: Qualifiers: Hematuria presence: with hematuria Urinary tract infection type: acute cystitis Qualified Code(s): N30.01 - Acute cystitis with hematuria (3) Leukocytosis: Qualifiers: Leukocytosis type: unspecified Qualified Code(s): D72.829 - Elevated white blood cell count, unspecified (4) Chronic kidney disease: Qualifiers: Chronic kidney disease stage: unspecified stage Qualified Code(s): N18.9 - Chronic kidney disease, unspecified (5) Chronic anemia: (6) Coronary artery disease: (7) Protein calorie malnutrition: (8) Physical deconditioning: (9) Muscle wasting: (10) Iron deficiency anemia: (11) Gram-negative bacteremia: (12) Hyperkalemia: (13) Acute kidney injury: (14) Atrial fibrillation with RVR: Plan # Sepsis Present on admission, please see H&P from admitting provider for criteria and initial management of sepsis. Source of sepsis is from UTI Blood culture 04/20 showing providencia staurti and a yet unidentified additional gram-negative rods with delayed growth, awaiting further identification Thus far blood cultures from April 22 are negative to date. Urine cx with klebsiella oxytoca and providencia Currently patient is on treatment with piperacillin/tazobactam based on susceptibilities. We will continue the same. Appears to be clinically improving with currently being afebrile, leukocytosis trending down. Plan to continue piperacillin/tazobactam after discharge total duration to be 14 days from clearance of bacteremia. Plan transition back to SNF. # chronic kidney disease: CT chest abdomen and pelvis performed on this admission did not show any signs of obstructive pyelonephritis. - Severely elevated WBC at 57,000 upon admission which is now resolving. -Creatinine is currently at recent baseline of 3.5, improving to 2.8 today -Antibiotics dose adjusted based on creatinine clearance. # A-fib with RVR Continue metoprolol 50 mg twice daily Continue amiodarone 400 mg twice daily Heart rate currently ranging between 71 to 100 bpm, anticoagulation relatively contraindicated given anemia, hb 5.2 in Mar 22, 2023. Endocsopic exam deferred on last admission as there were no active signs of bleeding. No intar abdominal bleeding. May be related to CKD however may benefit from outpatient endoscopic evaluation. No active signs of bleeding this admission. # Incidentally noted infiltrates on CT chest read to be mild tuberculosis. Read by Dr. Keys initially, called [facility] to discuss , Dr. Keys was not available, discussed with Dr. Schaefer Instead. Findings concerning for tuberculosis currently include a calcified lymph node with surrounding lung infiltrates. No similar granulomatous infiltration is seen within the liver or spleen which would make an alternate diagnosis such as histoplasmosis less likely. Patient has no past history of TB. [facility] Clinically very low suspicion of pulmonary tuberculosis, however given suspicious CT findings after discussion with two radiologist, will place patient on isolation and rule out pulmonary TB by checking sputum AFB and MTB PCR x3 from specimens taken 8-hour apart. sent to state lab , awaiting results quantiferon pending # Hyperkalemia: Insulin.. dextrose , albuterol inhalation Full code SCDs for DVT prophylaxis, anticoagulation relatively contraindicated given anemia Attestations Medical Necessity Statement*: pending MTb rule out to transition back to SNF, continue iv abx for UTI/ septciemia Coding Level of Care Code Acute Code for Chg Fwd Moderate MDM includes number and complexity of problems actively addressed during encounter, amount and/or complexity of data reviewed/ordered and described risk of complication, morbidity or mortality of management as documented Diagnoses Sepsis A41.9 Urinary tract infection N30.01 Hematuria presence: with hematuria Urinary tract infection type: acute cystitis Leukocytosis D72.829 Leukocytosis type: unspecified Chronic kidney disease N18.9 Chronic kidney disease stage: unspecified stage Chronic anemia D64.9 Coronary artery disease I25.10 Protein calorie malnutrition E46 Physical deconditioning R53.81 Muscle wasting M62.50 Iron deficiency anemia D50.9 Gram-negative bacteremia R78.81 Hyperkalemia E87.5 Acute kidney injury N17.9 Atrial fibrillation with RVR I48.91
[2023-04-27] MEDS: insulin regular-human 10 UNIT in SYRINGE 1 EACH 4 UNIT IVP (17:21)
[2023-04-27] MEDS: insulin lispro 100 unit/1 mL SUBCUT (17:22)
[2023-04-27] MEDS: amiodarone 200 mg Tablet PO (17:24)
[2023-04-27 17:32] LABS: Glucose Point of Care 164 mg/dL (70-110)
[2023-04-27] MEDS: pantoprazole DR 40 mg Tablet PO (17:33)
[2023-04-27] MEDS: dextrose 50% syringe 50 mL 25 ML IVP (17:33)
[2023-04-27 20:32] LABS: Glucose Point of Care 109 mg/dL (70-110)
[2023-04-28] VITALS (13 sets, daily range): BP systolic 112–144; BP diastolic 48–94; PULSE 60–69; RESP 16–25; TEMP 36.3–36.7; O2SAT 98–100
--- NOTE | 2023-04-28 03:57 | PC.NURSE ---
Patient complaint right forearm was very tender to touch. On inspection patient arm was red, swollen, and warm. Heat pack was placed on area.
[2023-04-28 05:11] LABS: Basophils # 0.1 10^3/uL (0.0-0.1); Basophils % 0.6 %; Eosinophils # 0.3 10^3/uL (0.0-0.8); Eosinophils % 2.3 %; Hematocrit 29.2 % (37-53); Lymphocytes # 1.1 10^3/uL (0.8-4.8); Lymphocytes % 7.6 %; Mean Corpuscular HGB Conc 30.5 g/dL (30-55); Mean Corpuscular Hemoglobin 26.1 pg (27-33); Mean Corpuscular Volume 85.6 fl (82-101); Mean Platelet Volume 10.1 fL (7.4-10.4); Monocytes # 0.8 10^3/uL (0.2-0.9); Monocytes % 5.2 %; Neutrophils # 11.31 10^3/uL (1.8-7.7); Neutrophils % 78.1 %; Nucleated Red Blood Cells % 0 %; Platelet Count 292 10^3/cmm (157-399); Red Blood Count 3.41 10^6/uL (3.85-5.65); Red Cell Distribution Width 21.1 % (12.1-15.1); White Blood Count 14.47 10^3/uL (3.29-11.43)
[2023-04-28 05:37] LABS: Alanine Aminotransferase 44 U/L (0-41); Alkaline Phosphatase 166 U/L (40-130); Anion Gap 15.6 (5-19); Aspartate Amino Transferase 13 U/L (0-40); Blood Urea Nitrogen 64 mg/dL (8-23); Calcium 8.8 mg/dL (8.5-10.5); Carbon Dioxide 24 mmol/L (22-29); Chloride 104 mmol/L (98-107); Globulin 3.2 g/dL (1.3-4.6); Glucose 99 mg/dL (65-115); Osmolality Calculated 304 mOsm/kg (285-295); Potassium 5.6 mmol/L (3.5-5.1); Slide Review Slide Review Perform; Sodium 138 mmol/L (136-145); Total Bilirubin 0.3 mg/dL (0.15-1.2); Total Protein 6.2 g/dL (6.6-8.7)
[2023-04-28 05:49] LABS: Hepatitis A Antibody IgM Non-Reactive (Nonreactive); Hepatitis B Core AB, Total Non-Reactive (Nonreactive); Hepatitis B Surface AB 3.5 (11.5-1000); Hepatitis B Surface Antigen Non-Reactive (Nonreactive); Hepatitis C Virus Antibody Non-Reactive (Nonreactive)
[2023-04-28 06:33] LABS: Glucose Point of Care 96 mg/dL (70-110)
[2023-04-28] MEDS: metoprolol tartrate 50 mg Tablet PO ×2 (06:48→17:59)
[2023-04-28] MEDS: ipratropium-albuterol 3 mL Neb INHALATION ×3 (07:47→19:38)
[2023-04-28] MEDS: budesonide 0.5 mg/2 mL Neb INHALATION ×2 (07:47→19:38)
[2023-04-28 08:10] LABS: Fibrinogen Degradation Product <5 mcg/mL (LESS THAN 5)
[2023-04-28] MEDS: amiodarone 200 mg Tablet PO ×2 (10:57→18:00)
[2023-04-28] MEDS: sucralfate 1 gm Tablet PO ×2 (10:58→20:52)
[2023-04-28] MEDS: sennosides-docusate Tablet 1 TAB PO (10:58)
[2023-04-28] MEDS: pantoprazole DR 40 mg Tablet PO ×2 (10:58→18:00)
[2023-04-28] MEDS: piperacillin-tazobactam 3.375 GM in sodium chloride 0.9% (plus) 50 ML IV ×2 (10:58→23:12)
[2023-04-28] MEDS: insulin regular-human 10 UNIT in SYRINGE 1 EACH IVP (10:59)
[2023-04-28] MEDS: dextrose 50% syringe 50 mL 25 ML IVP (10:59)
[2023-04-28] MEDS: mupirocin oint 22 gm 1 APPLIC TOPICAL ×3 (11:00→20:53)
--- NOTE | 2023-04-28 12:40 | PM.PN ---
Subjective Subjective: No new complaints today. White count is stable at 14.47. He is afebrile, hemodynamically stable. LFTs stable compared to yesterday. Ultrasound of the right upper quadrant without any evidence of cholecystitis. We are still awaiting results of the send out MTB testing to state lab. Medications: Reviewed: Yes Vitals/I&O/Wt Last Vital Signs Temp 97.9 F 04/28/23 12:00 Pulse 61 04/28/23 12:00 Resp 21 H 04/28/23 12:00 BP 131/68 04/28/23 12:00 Pulse Ox 100 04/28/23 12:00 O2 Del Method Nasal Cannula 04/28/23 12:00 O2 Flow Rate 2 04/28/23 07:50 04/27/23 04/28/23 04/28/23 22:59 06:59 14:59 Intake Total 650 / 1490 50.1 / 1540.1 360 / 360 Output Total 650 / 650 Balance 650 / 1490 -599.9 / 890.1 360 / 360 Physical Exam Narrative: General: Chronically ill-appearing, frail, extremely hard of hearing which limits his exam HEENT: PERRLA, pupils bilaterally equal and reactive, pallors not present Chest: Coarse crackles to auscultation CVS: S1-S2 regular, no murmurs, no tachycardia, no gallops, no rubs Abdomen: Soft, nontender, no organomegaly, bowel sounds present Neuro: Moving all extremities power 5 x 5, does not appear to be in any acute distress, multiple bruising over B/L arms Urinary Catheter Management: Sehikh: Cath Placed During This Visit: yes Reason for Continuing Indwelling Catheter: Accurate Measurement of Urinary Output in Critically Ill Patients Urinary Catheter Date of Insertion: 04/20/23 Urinary Catheter Time of Insertion: 23:29 Data 04/28/23 04:37 04/28/23 04:37 Micro: Microbiology 04/20/23 20:42 Blood Culture - Final Blood Providencia stuartii 04/22/23 09:19 Blood Culture - Final Blood NO GROWTH AFTER 5 DAYS 04/22/23 09:19 Blood Culture - Final Blood NO GROWTH AFTER 5 DAYS A&P Assessment and plan (1) Sepsis: (2) Urinary tract infection: Qualifiers: Hematuria presence: with hematuria Urinary tract infection type: acute cystitis Qualified Code(s): N30.01 - Acute cystitis with hematuria (3) Leukocytosis: Qualifiers: Leukocytosis type: unspecified Qualified Code(s): D72.829 - Elevated white blood cell count, unspecified (4) Chronic kidney disease: Qualifiers: Chronic kidney disease stage: unspecified stage Qualified Code(s): N18.9 - Chronic kidney disease, unspecified (5) Chronic anemia: (6) Coronary artery disease: (7) Protein calorie malnutrition: (8) Physical deconditioning: (9) Muscle wasting: (10) Iron deficiency anemia: (11) Gram-negative bacteremia: (12) Hyperkalemia: (13) Acute kidney injury: (14) Atrial fibrillation with RVR: Plan # Sepsis Present on admission, please see H&P from admitting provider for criteria and initial management of sepsis. Source of sepsis is from UTI Blood culture 04/20 showing providencia staurti , second gram negative also now identified as [place] care. Thus far blood cultures from April 22 are negative to date. Urine cx with klebsiella oxytoca and providencia Currently patient is on treatment with piperacillin/tazobactam based on susceptibilities. We will continue the same. Appears to be clinically improving with currently being afebrile, leukocytosis trending down. Leukocytosis stabilized at 14, down from 57,000. Given that otherwise he is medically well-appearing suspect that leukocytosis is from margination and may take a few days to resolve. Currently no clinical suspicion for untreated infection. Plan to continue piperacillin/tazobactam after discharge total duration to be 14 days from clearance of bacteremia. (April 22 to May 04) Plan transition back to SNF, awaiting clearance from an MTB standpoint # Chronic kidney disease: CT chest abdomen and pelvis performed on this admission did not show any signs of obstructive pyelonephritis. - Severely elevated WBC at 57,000 upon admission which is now resolving. -Creatinine is currently at recent baseline of 3.1 -Antibiotics dose adjusted based on creatinine clearance. # A-fib with RVR Continue metoprolol 50 mg twice daily Previously on amiodarone 400 twice daily until April 27, 2023, changed to amiodarone 200 mg p.o. twice daily after noted to have slight transaminitis. Heart rate currently ranging between 71 to 100 bpm, anticoagulation relatively contraindicated given anemia, hb 5.2 in Mar 22, 2023. Endocsopic exam deferred on last admission as there were no active signs of bleeding. No intra abdominal bleeding. May be related to CKD however may benefit from outpatient endoscopic evaluation prior to considering any anticoagulation No active signs of bleeding this admission. #Transaminitis: Elevated ALT and alkaline phosphatase, stable over the last 2 days. Right upper quadrant ultrasound without any signs of cholecystitis but does show some gallbladder wall edema. Suspect this may be related to gallbladder sludging. Clinically no signs of cholecystitis. Deranged LFTs may be related to amiodarone versus piperacillin/tazobactam. We will continue to monitor. If uptrending will likely need to change antibiotic regimen. Amiodarone has been reduced to 200 mg twice daily potential option remains aztreonam. # Incidentally noted infiltrates on CT chest read to be mild tuberculosis. Findings discussed with [facility] radiologist Dr. Schaefer, previously read by Dr. Keys. Findings concerning for tuberculosis currently include a calcified lymph node with surrounding lung infiltrates. No similar granulomatous infiltration is seen within the liver or spleen which would make an alternate diagnosis such as histoplasmosis less likely. Patient has no past history of TB. I am uncertain of his PPD status at the long term. Clinically very low suspicion of pulmonary tuberculosis, however given suspicious CT findings after discussion with two radiologists, will place patient on isolation and rule out pulmonary TB by checking sputum AFB and MTB PCR x3 from specimens taken 8-hour apart. sent to state lab , awaiting results Quantiferon pending # Hyperkalemia: Insulin.. dextrose , albuterol inhalation , kayexalate if no improvement Full code SCDs for DVT prophylaxis, anticoagulation relatively contraindicated given anemia Attestations Medical Necessity Statement*: Clinically improving, needs MTB rule out prior to transition to SNF Coding Level of Care Code Acute Code for Chg Fwd Diagnoses Sepsis A41.9 Urinary tract infection N30.01 Hematuria presence: with hematuria Urinary tract infection type: acute cystitis Leukocytosis D72.829 Leukocytosis type: unspecified Chronic kidney disease N18.9 Chronic kidney disease stage: unspecified stage Chronic anemia D64.9 Coronary artery disease I25.10 Protein calorie malnutrition E46 Physical deconditioning R53.81 Muscle wasting M62.50 Iron deficiency anemia D50.9 Gram-negative bacteremia R78.81 Hyperkalemia E87.5 Acute kidney injury N17.9 Atrial fibrillation with RVR I48.91
[2023-04-28 14:54] LABS: Quantiferon Mitogen >10.00 IU/mL; Quantiferon Nil 0.02 IU/mL; Quantiferon TB Gold NEGATIVE (NEGATIVE)
[2023-04-28 16:33] LABS: Glucose Point of Care 164 mg/dL (70-110)
[2023-04-28 16:33] LABS: Glucose Point of Care 128 mg/dL (70-110)
[2023-04-28] MEDS: insulin lispro 100 unit/1 mL SUBCUT (18:00)
[2023-04-28 21:25] LABS: Glucose Point of Care 160 mg/dL (70-110)
[2023-04-29] VITALS (15 sets, daily range): BP systolic 133–151; BP diastolic 60–77; PULSE 59–71; RESP 15–18; TEMP 36.5–36.8; O2SAT 92–100
[2023-04-29] MEDS: metoprolol tartrate 50 mg Tablet PO ×2 (06:11→17:40)
[2023-04-29 06:25] LABS: Glucose Point of Care 110 mg/dL (70-110)
[2023-04-29] MEDS: ipratropium-albuterol 3 mL Neb INHALATION ×2 (08:36→13:38)
[2023-04-29] MEDS: budesonide 0.5 mg/2 mL Neb INHALATION ×2 (08:36→20:23)
--- NOTE | 2023-04-29 08:48 | PC.SOCIAL ---
IMM Update pg 2 of IMM updated and reviewed w/ patient. Copy provided and Copy dated, initialed and placed in chart.
[2023-04-29] MEDS: piperacillin-tazobactam 3.375 GM in sodium chloride 0.9% (plus) 50 ML IV ×2 (10:39→22:59)
[2023-04-29] MEDS: amiodarone 200 mg Tablet PO ×2 (10:39→17:38)
[2023-04-29] MEDS: sucralfate 1 gm Tablet PO ×2 (10:39→20:17)
[2023-04-29] MEDS: sennosides-docusate Tablet 1 TAB PO (10:39)
[2023-04-29] MEDS: pantoprazole DR 40 mg Tablet PO ×2 (10:39→17:38)
[2023-04-29] MEDS: mupirocin oint 22 gm 1 APPLIC TOPICAL ×3 (10:41→20:17)
[2023-04-29 11:04] LABS: Glucose Point of Care 111 mg/dL (70-110)
--- NOTE | 2023-04-29 14:02 | PM.PN ---
Subjective Subjective: Updated from the state lab that patient's AFB smears are negative x3. He has been taken off of TB isolation. No new complaints today. Had lab break this morning. Continuing with Zosyn. Heart rate is controlled after cutting back on dose of amiodarone. Medications: Reviewed: Yes Vitals/I&O/Wt Last Vital Signs Temp 98.2 F 04/29/23 12:00 Pulse 63 04/29/23 13:43 Resp 16 04/29/23 13:37 BP 133/60 04/29/23 12:00 Pulse Ox 95 04/29/23 13:37 O2 Del Method Room Air 04/29/23 13:37 O2 Flow Rate 1 04/29/23 08:34 04/28/23 04/29/23 04/29/23 22:59 06:59 14:59 Intake Total 530.1 / 1130.1 350 / 1480.1 840 / 840 Output Total 400 / 850 450 / 1300 440 / 440 Balance 130.1 / 280.1 -100 / 180.1 400 / 400 Physical Exam Narrative: General: Chronically ill-appearing, frail HEENT: PERRLA, pupils bilaterally equal and reactive, pallors not present Chest: Coarse crackles to auscultation CVS: S1-S2 regular, no murmurs, no tachycardia, no gallops, no rubs Abdomen: Soft, nontender, no organomegaly, bowel sounds present Neuro: Moving all extremities power 5 x 5, does not appear to be in any acute distress, multiple bruising over B/L arms, per nursing report he gets up to walk to the bathroom. Urinary Catheter Management: Sheikh: Cath Placed During This Visit: yes Reason for Continuing Indwelling Catheter: Accurate Measurement of Urinary Output in Critically Ill Patients Urinary Catheter Date of Insertion: 04/20/23 Urinary Catheter Time of Insertion: 23:29 Data 04/28/23 04:37 04/28/23 04:37 A&P Assessment and plan (1) Sepsis: (2) Urinary tract infection: Qualifiers: Hematuria presence: with hematuria Urinary tract infection type: acute cystitis Qualified Code(s): N30.01 - Acute cystitis with hematuria (3) Leukocytosis: Qualifiers: Leukocytosis type: unspecified Qualified Code(s): D72.829 - Elevated white blood cell count, unspecified (4) Chronic kidney disease: Qualifiers: Chronic kidney disease stage: unspecified stage Qualified Code(s): N18.9 - Chronic kidney disease, unspecified (5) Chronic anemia: (6) Coronary artery disease: (7) Protein calorie malnutrition: (8) Physical deconditioning: (9) Muscle wasting: (10) Iron deficiency anemia: (11) Gram-negative bacteremia: (12) Hyperkalemia: (13) Acute kidney injury: (14) Atrial fibrillation with RVR: Plan # Sepsis Present on admission, please see H&P from admitting provider for criteria and initial management of sepsis. Source of sepsis is from UTI Blood culture 04/20 showing providencia staurtii Thus far blood cultures from April 22 are negative to date. Urine cx with klebsiella oxytoca and providencia Currently patient is on treatment with piperacillin/tazobactam based on susceptibilities. clinically improving continue piperacillin/tazobactam for total duration to be 14 days from clearance of bacteremia. (April 22 to May 04) Plan transition back to SNF, cleared from MTB standpoint. Awaiting prior Auth to head back to nursing facility where he usually lives. # Chronic kidney disease: CT chest abdomen and pelvis performed on this admission did not show any signs of obstructive pyelonephritis. - Severely elevated WBC at 57,000 upon admission which is now resolving. Leukocytosis has stabilized at 14. -Creatinine is currently at recent baseline -Antibiotics dose adjusted based on creatinine clearance. # A-fib with RVR Continue metoprolol 50 mg twice daily Continue amiodarone 200 mg twice daily, monitor LFTs Heart rate currently well controlled anticoagulation relatively contraindicated given anemia, hb 5.2 in Mar 22, 2023. Endocsopic exam deferred on last admission as there were no active signs of bleeding. No intra abdominal bleeding. May be related to CKD however may benefit from outpatient endoscopic evaluation prior to considering any anticoagulation No active signs of bleeding this admission. #Transaminitis: Elevated ALT and alkaline phosphatase, stable over the last 2 days. Right upper quadrant ultrasound without any signs of cholecystitis but does show some gallbladder wall edema. Suspect this may be related to gallbladder sludging. Clinically no signs of cholecystitis. Deranged LFTs may be related to amiodarone versus piperacillin/tazobactam. We will continue to monitor. If uptrending will likely need to change antibiotic regimen. # Incidentally noted infiltrates on CT chest read to be mild tuberculosis per radiology read. Quantiferon negative AFB smear negative x3 from state lab. No clinical signs or symptoms of TB CT chest findings likely related to other old granulomatous disease. Currently no respiratory symptoms, patient is on room air saturating well. Given 3 negative sputum smears, will discontinue isolation. Tuberculosis ruled out. Full code SCDs for DVT prophylaxis, anticoagulation relatively contraindicated given anemia Disposition: Overall stable for discharge. Patient is a resident of a [place] [facility]. Needs prior Auth to transition back. We will continue IV antibiotics while he is in the hospital. Attestations Medical Necessity Statement*: Disposition planning, iv antibiotics Coding Level of Care Code Acute Code for g Fwd Diagnoses Sepsis A41.9 Urinary tract infection N30.01 Hematuria presence: with hematuria Urinary tract infection type: acute cystitis Leukocytosis D72.829 Leukocytosis type: unspecified Chronic kidney disease N18.9 Chronic kidney disease stage: unspecified stage Chronic anemia D64.9 Coronary artery disease I25.10 Protein calorie malnutrition E46 Physical deconditioning R53.81 Muscle wasting M62.50 Iron deficiency anemia D50.9 Gram-negative bacteremia R78.81 Hyperkalemia E87.5 Acute kidney injury N17.9 Atrial fibrillation with RVR I48.91
[2023-04-29 17:29] LABS: Glucose Point of Care 159 mg/dL (70-110)
[2023-04-29] MEDS: insulin lispro 100 unit/1 mL SUBCUT (17:36)
[2023-04-29] MEDS: sodium chloride 3.5% neb 4 mL Neb INHALATION (20:23)
[2023-04-29 20:31] LABS: Glucose Point of Care 176 mg/dL (70-110)
[2023-04-30] VITALS (13 sets, daily range): BP systolic 133–159; BP diastolic 67–109; PULSE 55–68; RESP 16–25; TEMP 36.3–36.9; O2SAT 94–97
[2023-04-30 04:10] LABS: Hematocrit 30.7 % (37-53); Mean Corpuscular HGB Conc 29.3 g/dL (30-55); Mean Corpuscular Hemoglobin 25.8 pg (27-33); Mean Platelet Volume 10.2 fL (7.4-10.4); Platelet Count 340 10^3/cmm (157-399); Red Blood Count 3.49 10^6/uL (3.85-5.65); Red Cell Distribution Width 21.1 % (12.1-15.1); White Blood Count 13.18 10^3/uL (3.29-11.43)
[2023-04-30 04:28] LABS: Alanine Aminotransferase 28 U/L (0-41); Albumin Level 2.8 g/dL (3.5-5.2); Alkaline Phosphatase 126 U/L (40-130); Anion Gap 15.4 (5-19); Aspartate Amino Transferase 11 U/L (0-40); Blood Urea Nitrogen 63 mg/dL (8-23); Calcium 8.8 mg/dL (8.5-10.5); Carbon Dioxide 22 mmol/L (22-29); Chloride 106 mmol/L (98-107); Globulin 3.6 g/dL (1.3-4.6); Glucose 107 mg/dL (65-115); Osmolality Calculated 302 mOsm/kg (285-295); Potassium 6.4 mmol/L (3.5-5.1); Sodium 137 mmol/L (136-145); Total Bilirubin 0.2 mg/dL (0.15-1.2); Total Protein 6.4 g/dL (6.6-8.7)
[2023-04-30 04:44] LABS: Slide Review Slide Review Perform
[2023-04-30 04:45] LABS: Basophils # 0.1 10^3/uL (0.0-0.1); Basophils % 0.5 %; Eosinophils # 0.3 10^3/uL (0.0-0.8); Eosinophils % 2.5 %; Lymphocytes # 1.2 10^3/uL (0.8-4.8); Lymphocytes % 8.7 %; Monocytes # 0.8 10^3/uL (0.2-0.9); Monocytes % 5.9 %; Nucleated Red Blood Cells % 0 %
[2023-04-30] MEDS: metoprolol tartrate 50 mg Tablet PO ×2 (05:41→17:37)
[2023-04-30 07:08] LABS: Glucose Point of Care 117 mg/dL (70-110)
[2023-04-30] MEDS: sennosides-docusate Tablet 1 TAB PO (08:44)
[2023-04-30] MEDS: pantoprazole DR 40 mg Tablet PO ×2 (08:44→17:37)
[2023-04-30] MEDS: amiodarone 200 mg Tablet PO ×2 (08:44→17:37)
[2023-04-30] MEDS: sucralfate 1 gm Tablet PO ×2 (08:44→20:33)
[2023-04-30] MEDS: mupirocin oint 22 gm 1 APPLIC TOPICAL ×3 (08:46→20:34)
[2023-04-30 11:03] LABS: Glucose Point of Care 131 mg/dL (70-110)
[2023-04-30] MEDS: piperacillin-tazobactam 3.375 GM in sodium chloride 0.9% (plus) 50 ML IV ×2 (13:52→23:22)
[2023-04-30 17:22] LABS: Glucose Point of Care 116 mg/dL (70-110)
--- NOTE | 2023-04-30 17:34 | PM.PN ---
Subjective Subjective: no new complaints today Medications: Reviewed: Yes Vitals/I&O/Wt Last Vital Signs Temp 97.3 F L 04/30/23 08:58 Pulse 68 04/30/23 16:17 Resp 17 04/30/23 16:17 BP 144/74 04/30/23 16:17 Pulse Ox 96 04/30/23 16:17 O2 Del Method Room Air 04/30/23 14:00 O2 Flow Rate 1 04/29/23 08:34 04/30/23 04/30/23 04/30/23 06:59 14:59 22:59 Intake Total 50 / 1180 480 / 480 Output Total 400 / 1390 Balance -350 / -210 480 / 480 Physical Exam Narrative: General: Chronically ill-appearing, frail HEENT: PERRLA, pupils bilaterally equal and reactive, pallors not present Chest: Coarse crackles to auscultation CVS: S1-S2 regular, no murmurs, no tachycardia, no gallops, no rubs Abdomen: Soft, nontender, no organomegaly, bowel sounds present Neuro: Moving all extremities power 5 x 5, does not appear to be in any acute distress, multiple bruising over B/L arms, per nursing report he gets up to walk to the bathroom. Urinary Catheter Management: Sheikh: Cath Placed During This Visit: yes Reason for Continuing Indwelling Catheter: Accurate Measurement of Urinary Output in Critically Ill Patients Urinary Catheter Date of Insertion: 04/20/23 Urinary Catheter Time of Insertion: 23:29 Data 04/30/23 03:17 04/30/23 03:17 A&P Assessment and plan (1) Sepsis: (2) Urinary tract infection: Qualifiers: Hematuria presence: with hematuria Urinary tract infection type: acute cystitis Qualified Code(s): N30.01 - Acute cystitis with hematuria (3) Leukocytosis: Qualifiers: Leukocytosis type: unspecified Qualified Code(s): D72.829 - Elevated white blood cell count, unspecified (4) Chronic kidney disease: Qualifiers: Chronic kidney disease stage: unspecified stage Qualified Code(s): N18.9 - Chronic kidney disease, unspecified (5) Chronic anemia: (6) Coronary artery disease: (7) Protein calorie malnutrition: (8) Physical deconditioning: (9) Muscle wasting: (10) Iron deficiency anemia: (11) Gram-negative bacteremia: (12) Hyperkalemia: (13) Acute kidney injury: (14) Atrial fibrillation with RVR: Plan # Sepsis Present on admission, please see H&P from admitting provider for criteria and initial management of sepsis. Source of sepsis is from UTI Blood culture 04/20 showing providencia staurtii Thus far blood cultures from April 22 are negative to date. Urine cx with klebsiella oxytoca and providencia Currently patient is on treatment with piperacillin/tazobactam based on susceptibilities. clinically improving continue piperacillin/tazobactam for total duration to be 14 days from clearance of bacteremia. (April 22 to May 04) Plan transition back to SNF, cleared from MTB standpoint. Awaiting prior Auth to head back to nursing facility where he usually lives. # Chronic kidney disease: CT chest abdomen and pelvis performed on this admission did not show any signs of obstructive pyelonephritis. - Severely elevated WBC at 57,000 upon admission which is now resolving. Leukocytosis has stabilized at 14. -Creatinine is currently at recent baseline -Antibiotics dose adjusted based on creatinine clearance. # A-fib with RVR Continue metoprolol 50 mg twice daily Continue amiodarone 200 mg twice daily, monitor LFTs Heart rate currently well controlled anticoagulation relatively contraindicated given anemia, hb 5.2 in Mar 22, 2023. Endocsopic exam deferred on last admission as there were no active signs of bleeding. No intra abdominal bleeding. May be related to CKD however may benefit from outpatient endoscopic evaluation prior to considering any anticoagulation No active signs of bleeding this admission. #Transaminitis: Elevated ALT and alkaline phosphatase, stable over the last 2 days. Right upper quadrant ultrasound without any signs of cholecystitis but does show some gallbladder wall edema. Suspect this may be related to gallbladder sludging. Clinically no signs of cholecystitis. Deranged LFTs may be related to amiodarone versus piperacillin/tazobactam. We will continue to monitor. If uptrending will likely need to change antibiotic regimen. # Incidentally noted infiltrates on CT chest read to be mild tuberculosis per radiology read. Quantiferon negative AFB smear negative x3 from state lab. No clinical signs or symptoms of TB CT chest findings likely related to other old granulomatous disease. Currently no respiratory symptoms, patient is on room air saturating well. Given 3 negative sputum smears, will discontinue isolation. Tuberculosis ruled out. Full code SCDs for DVT prophylaxis, anticoagulation relatively contraindicated given anemia Disposition: Overall stable for discharge. Patient is a resident of a half-way facility. Needs prior Auth to transition back. We will continue IV antibiotics while he is in the hospital. Plan for today: Continue iv abx while pending disposition planning Attestations Medical Necessity Statement*: ongoing disposition planning Coding Level of Care Code Acute Code for Chg Fwd Diagnoses Sepsis A41.9 Urinary tract infection N30.01 Hematuria presence: with hematuria Urinary tract infection type: acute cystitis Leukocytosis D72.829 Leukocytosis type: unspecified Chronic kidney disease N18.9 Chronic kidney disease stage: unspecified stage Chronic anemia D64.9 Coronary artery disease I25.10 Protein calorie malnutrition E46 Physical deconditioning R53.81 Muscle wasting M62.50 Iron deficiency anemia D50.9 Gram-negative bacteremia R78.81 Hyperkalemia E87.5 Acute kidney injury N17.9 Atrial fibrillation with RVR I48.91
[2023-04-30 20:55] LABS: Glucose Point of Care 193 mg/dL (70-110)
[2023-05-01] VITALS (11 sets, daily range): BP systolic 132–189; BP diastolic 55–118; PULSE 54–64; RESP 15–25; TEMP 36.3–36.7; O2SAT 96–99
[2023-05-01] MEDS: metoprolol tartrate 50 mg Tablet PO ×2 (05:36→18:15)
[2023-05-01 07:30] LABS: Glucose Point of Care 117 mg/dL (70-110)
[2023-05-01] MEDS: pantoprazole DR 40 mg Tablet PO ×2 (07:55→18:15)
[2023-05-01] MEDS: amiodarone 200 mg Tablet PO ×2 (07:56→18:15)
[2023-05-01] MEDS: sucralfate 1 gm Tablet PO ×2 (07:56→20:29)
[2023-05-01] MEDS: mupirocin oint 22 gm 1 APPLIC TOPICAL ×3 (07:57→20:29)
--- NOTE | 2023-05-01 08:46 | PC.SOCIAL ---
IMM update IMM updated with patient. Verbalized an understanding. Copy pg 2 provided. Initialled, dated, timed, and placed in chart.
[2023-05-01 11:31] LABS: Glucose Point of Care 115 mg/dL (70-110)
[2023-05-01] MEDS: piperacillin-tazobactam 3.375 GM in sodium chloride 0.9% (plus) 50 ML IV ×2 (11:51→23:06)
[2023-05-01 16:56] LABS: Glucose Point of Care 220 mg/dL (70-110)
[2023-05-01] MEDS: insulin lispro 100 unit/1 mL SUBCUT (18:15)
[2023-05-01 22:03] LABS: Glucose Point of Care 119 mg/dL (70-110)
--- NOTE | 2023-05-01 22:38 | PM.PN ---
Subjective Subjective: no acute interim events, deneis any new complaints Medications: Reviewed: Yes Vitals/I&O/Wt Last Vital Signs Temp 97.3 F L 05/01/23 20:00 Pulse 58 L 05/01/23 20:00 Resp 18 05/01/23 20:00 BP 132/67 05/01/23 20:00 Pulse Ox 97 05/01/23 20:00 O2 Del Method Room Air 05/01/23 20:00 O2 Flow Rate 1 04/29/23 08:34 05/01/23 05/01/23 05/01/23 06:59 14:59 22:59 Intake Total 250 / 1140 836 / 836 290 / 1126 Output Total 1700 / 2200 Balance -1450 / -1060 836 / 836 290 / 1126 Physical Exam Narrative: General: Chronically ill-appearing, frail HEENT: PERRLA, pupils bilaterally equal and reactive, pallors not present Chest: Coarse crackles to auscultation CVS: S1-S2 regular, no murmurs, no tachycardia, no gallops, no rubs Abdomen: Soft, nontender, no organomegaly, bowel sounds present Neuro: Moving all extremities power 5 x 5, does not appear to be in any acute distress, multiple bruising over B/L arms, per nursing report he gets up to walk to the bathroom. Urinary Catheter Management: Sheikh: Cath Placed During This Visit: yes Reason for Continuing Indwelling Catheter: Accurate Measurement of Urinary Output in Critically Ill Patients Urinary Catheter Date of Insertion: 04/20/23 Urinary Catheter Time of Insertion: 23:29 Data 04/30/23 03:17 04/30/23 03:17 A&P Assessment and plan (1) Sepsis: (2) Urinary tract infection: Qualifiers: Hematuria presence: with hematuria Urinary tract infection type: acute cystitis Qualified Code(s): N30.01 - Acute cystitis with hematuria (3) Leukocytosis: Qualifiers: Leukocytosis type: unspecified Qualified Code(s): D72.829 - Elevated white blood cell count, unspecified (4) Chronic kidney disease: Qualifiers: Chronic kidney disease stage: unspecified stage Qualified Code(s): N18.9 - Chronic kidney disease, unspecified (5) Chronic anemia: (6) Coronary artery disease: (7) Protein calorie malnutrition: (8) Physical deconditioning: (9) Muscle wasting: (10) Iron deficiency anemia: (11) Gram-negative bacteremia: (12) Hyperkalemia: (13) Acute kidney injury: (14) Atrial fibrillation with RVR: Plan # Sepsis Present on admission, please see H&P from admitting provider for criteria and initial management of sepsis. Source of sepsis is from UTI Blood culture 04/20 showing providencia staurtii Thus far blood cultures from April 22 are negative to date. Urine cx with klebsiella oxytoca and providencia Currently patient is on treatment with piperacillin/tazobactam based on susceptibilities. clinically improving continue piperacillin/tazobactam for total duration to be 14 days from clearance of bacteremia. (April 22 to May 04) Plan transition back to SNF, cleared from MTB standpoint. Awaiting prior Auth to transition back to nursing facility where he usually lives. # Chronic kidney disease: CT chest abdomen and pelvis performed on this admission did not show any signs of obstructive pyelonephritis. - Severely elevated WBC at 57,000 upon admission which is now resolving. Leukocytosis has stabilized at 14. -Creatinine is currently at recent baseline -Antibiotics dose adjusted based on creatinine clearance. # A-fib with RVR Continue metoprolol 50 mg twice daily Continue amiodarone 200 mg twice daily, monitor LFTs Heart rate currently well controlled anticoagulation relatively contraindicated given anemia, hb 5.2 in Mar 22, 2023. Endocsopic exam deferred on last admission as there were no active signs of bleeding. No intra abdominal bleeding. May be related to CKD however may benefit from outpatient endoscopic evaluation prior to considering any anticoagulation No active signs of bleeding this admission. #Transaminitis: Elevated ALT and alkaline phosphatase, now resolved. Right upper quadrant ultrasound without any signs of cholecystitis but does show some gallbladder wall edema. Suspect this may be related to gallbladder sludging. Clinically no signs of cholecystitis. # Incidentally noted infiltrates on CT chest read to be mild tuberculosis per radiology read. Quantiferon negative AFB smear negative x3 from state lab. No clinical signs or symptoms of TB CT chest findings likely related to other old granulomatous disease. Currently no respiratory symptoms, patient is on room air saturating well. Given 3 negative sputum smears, will discontinue isolation. Tuberculosis ruled out. Full code SCDs for DVT prophylaxis, anticoagulation relatively contraindicated given anemia Disposition: Overall stable for discharge. Patient is a resident of a long term facility. Needs prior Auth to transition back. We will continue IV antibiotics while he is in the hospital. Plan for today: Continue iv abx while pending disposition planning Attestations Medical Necessity Statement*: continue iv abx while awaiting transition back to SNF Coding Level of Care Code Acute Code for Chg Fwd Diagnoses Sepsis A41.9 Urinary tract infection N30.01 Hematuria presence: with hematuria Urinary tract infection type: acute cystitis Leukocytosis D72.829 Leukocytosis type: unspecified Chronic kidney disease N18.9 Chronic kidney disease stage: unspecified stage Chronic anemia D64.9 Coronary artery disease I25.10 Protein calorie malnutrition E46 Physical deconditioning R53.81 Muscle wasting M62.50 Iron deficiency anemia D50.9 Gram-negative bacteremia R78.81 Hyperkalemia E87.5 Acute kidney injury N17.9 Atrial fibrillation with RVR I48.91
[2023-05-02] VITALS (12 sets, daily range): BP systolic 107–142; BP diastolic 51–77; PULSE 54–84; RESP 15–20; TEMP 36.3–36.6; O2SAT 92–99
[2023-05-02 04:03] LABS: Basophils # 0.1 10^3/uL (0.0-0.1); Basophils % 0.8 %; Eosinophils # 0.4 10^3/uL (0.0-0.8); Eosinophils % 2.5 %; Hematocrit 33.2 % (37-53); Lymphocytes # 1.6 10^3/uL (0.8-4.8); Lymphocytes % 9.7 %; Mean Corpuscular HGB Conc 29.5 g/dL (30-55); Mean Corpuscular Hemoglobin 26.1 pg (27-33); Mean Corpuscular Volume 88.3 fl (82-101); Mean Platelet Volume 10.7 fL (7.4-10.4); Monocytes # 0.9 10^3/uL (0.2-0.9); Monocytes % 5.4 %; Neutrophils # 13.15 10^3/uL (1.8-7.7); Neutrophils % 77.4 %; Nucleated Red Blood Cells % 0 %; Platelet Count 385 10^3/cmm (157-399); Red Blood Count 3.76 10^6/uL (3.85-5.65); Red Cell Distribution Width 21.2 % (12.1-15.1); White Blood Count 16.98 10^3/uL (3.29-11.43)
[2023-05-02 04:27] LABS: Alanine Aminotransferase 20 U/L (0-41); Albumin Level 3.4 g/dL (3.5-5.2); Alkaline Phosphatase 111 U/L (40-130); Aspartate Amino Transferase 12 U/L (0-40); Blood Urea Nitrogen 73 mg/dL (8-23); Carbon Dioxide 22 mmol/L (22-29); Chloride 103 mmol/L (98-107); Globulin 3.5 g/dL (1.3-4.6); Glucose 102 mg/dL (65-115); Osmolality Calculated 306 mOsm/kg (285-295); Sodium 137 mmol/L (136-145); Total Bilirubin 0.2 mg/dL (0.15-1.2); Total Protein 6.9 g/dL (6.6-8.7)
[2023-05-02 04:28] LABS: Anion Gap 18.4 (5-19); Potassium 6.4 mmol/L (3.5-5.1)
[2023-05-02] MEDS: metoprolol tartrate 50 mg Tablet PO ×2 (05:10→17:45)
[2023-05-02 07:02] LABS: Glucose Point of Care 104 mg/dL (70-110)
[2023-05-02] MEDS: pantoprazole DR 40 mg Tablet PO ×2 (08:04→17:45)
[2023-05-02] MEDS: amiodarone 200 mg Tablet PO ×2 (08:04→17:45)
[2023-05-02] MEDS: sucralfate 1 gm Tablet PO ×2 (08:04→21:18)
[2023-05-02] MEDS: mupirocin oint 22 gm 1 APPLIC TOPICAL ×3 (08:05→21:18)
[2023-05-02 11:27] LABS: Glucose Point of Care 148 mg/dL (70-110)
[2023-05-02] MEDS: piperacillin-tazobactam 3.375 GM in sodium chloride 0.9% (plus) 50 ML IV ×2 (12:26→22:21)
[2023-05-02] MEDS: insulin lispro 100 unit/1 mL SUBCUT (12:26)
[2023-05-02 16:28] LABS: Glucose Point of Care 118 mg/dL (70-110)
--- NOTE | 2023-05-02 16:39 | P.PN_ITS ---
Subjective Subjective: Patient was seen this morning he is alert to person, to place, to time, he is very hard of hearing, he gives me the thumbs up and tells me he is feeling good, he has no pain complaints, Vitals/I&O/Wt Last Vital Signs Temp 97.9 F 05/02/23 16:00 Pulse 60 05/02/23 16:00 Resp 20 H 05/02/23 16:00 BP 123/57 05/02/23 16:00 Pulse Ox 99 05/02/23 16:00 O2 Del Method Room Air 05/02/23 16:00 O2 Flow Rate 1 04/29/23 08:34 05/02/23 05/02/23 05/02/23 06:59 14:59 22:59 Intake Total 50 / 1226 960 / 960 Output Total 300 / 550 500 / 500 Balance -250 / 676 460 / 460 Physical Exam Const: COMMON NORMALS: no acute distress ORIENTATION/CONSCIOUSNESS: Yes awake, Yes oriented to person and Yes oriented to place; not oriented to time Resp: COMMON NORMALS: normal respiratory effort, No retractions, No use of accessory muscles and clear to auscultation bilaterally AUSCULTATION: clear to auscultation bilaterally Cardio: COMMON NORMALS: regular rate, regular rhythm, S1 normal heart sound present and S2 normal heart sound present RATE: regular rate RHYTHM: regular rhythm HEART SOUNDS: S1 normal heart sound present and S2 normal heart sound present GI: COMMON NORMALS: Normal to inspection, nondistended, normoactive bowel sounds present and non-tender Extremity: COMMON NORMALS: no pedal edema Neuro: SENSORIUM/ORIENTATION: Yes oriented to person, Yes oriented to place and No oriented to time Psych: COMMON NORMALS: mental status grossly normal Urinary Catheter Management: Sheikh: Cath Placed During This Visit: yes Reason for Continuing Indwelling Catheter: Accurate Measurement of Urinary Output in Critically Ill Patients Urinary Catheter Date of Insertion: 04/20/23 Urinary Catheter Time of Insertion: 23:29 Data 05/02/23 03:09 05/02/23 03:09 A&P Assessment and plan (1) Sepsis: (2) Urinary tract infection: Qualifiers: Hematuria presence: with hematuria Urinary tract infection type: acute cystitis Qualified Code(s): N30.01 - Acute cystitis with hematuria (3) Leukocytosis: Qualifiers: Leukocytosis type: unspecified Qualified Code(s): D72.829 - Elevated white blood cell count, unspecified (4) Chronic kidney disease: Qualifiers: Chronic kidney disease stage: unspecified stage Qualified Code(s): N18.9 - Chronic kidney disease, unspecified (5) Chronic anemia: (6) Coronary artery disease: (7) Protein calorie malnutrition: (8) Physical deconditioning: (9) Muscle wasting: (10) Iron deficiency anemia: (11) Gram-negative bacteremia: (12) Hyperkalemia: (13) Acute kidney injury: (14) Atrial fibrillation with RVR: Plan # Sepsis Present on admission, please see H&P from admitting provider for criteria and initial management of sepsis. Source of sepsis is from UTI Blood culture 04/20 showing providencia staurtii Thus far blood cultures from April 22 are negative to date. Urine cx with klebsiella oxytoca and providencia Currently patient is on treatment with piperacillin/tazobactam based on susceptibilities. clinically improving continue piperacillin/tazobactam for total duration to be 14 days from clearance of bacteremia. (April 22 to May 04) Plan transition back to SNF, cleared from MTB standpoint. Awaiting prior Auth to transition back to nursing facility where he usually lives. # Chronic kidney disease: CT chest abdomen and pelvis performed on this admission did not show any signs of obstructive pyelonephritis. - Severely elevated WBC at 57,000 upon admission which is now resolving. Leukocytosis has stabilized at 14. -Creatinine is currently at recent baseline -Antibiotics dose adjusted based on creatinine clearance. # A-fib with RVR Continue metoprolol 50 mg twice daily Continue amiodarone 200 mg twice daily, monitor LFTs Heart rate currently well controlled anticoagulation relatively contraindicated given anemia, hb 5.2 in Mar 22, 2023. Endocsopic exam deferred on last admission as there were no active signs of bleeding. No intra abdominal bleeding. May be related to CKD however may benefit from outpatient endoscopic evaluation prior to considering any anticoagulation No active signs of bleeding this admission. #Transaminitis: Elevated ALT and alkaline phosphatase, now resolved. Right upper quadrant ultrasound without any signs of cholecystitis but does show some gallbladder wall edema. Suspect this may be related to gallbladder sludging. Clinically no signs of cholecystitis. # Incidentally noted infiltrates on CT chest read to be mild tuberculosis per radiology read. Quantiferon negative AFB smear negative x3 from state lab. No clinical signs or symptoms of TB CT chest findings likely related to other old granulomatous disease. Currently no respiratory symptoms, patient is on room air saturating well. Given 3 negative sputum smears, will discontinue isolation. Tuberculosis ruled out. Full code SCDs for DVT prophylaxis, anticoagulation relatively contraindicated given anemia Disposition: Overall stable for discharge. Patient is a resident of a senior living facility. Needs prior Auth to transition back. We will continue IV antibiotics while he is in the hospital. Plan for today: Continue iv abx while pending disposition planning, hyperkalemia, Kayexalate repeat BMP in the afternoon, nausea pain complaints, no palpitations Attestations Medical Necessity Statement*: Patient requires hospitalization for bacteremia requiring IV Zosyn, hyperkalemia Diagnoses Sepsis A41.9 Urinary tract infection N30.01 Hematuria presence: with hematuria Urinary tract infection type: acute cystitis Leukocytosis D72.829 Leukocytosis type: unspecified Chronic kidney disease N18.9 Chronic kidney disease stage: unspecified stage Chronic anemia D64.9 Coronary artery disease I25.10 Protein calorie malnutrition E46 Physical deconditioning R53.81 Muscle wasting M62.50 Iron deficiency anemia D50.9 Gram-negative bacteremia R78.81 Hyperkalemia E87.5 Acute kidney injury N17.9 Atrial fibrillation with RVR I48.91
[2023-05-02] MEDS: sodium polystyrene sulfonate 15 gm/60 mL Btl PO (17:45)
[2023-05-02 18:15] LABS: Anion Gap 18.1 (5-19); Blood Urea Nitrogen 79 mg/dL (8-23); Carbon Dioxide 23 mmol/L (22-29); Chloride 102 mmol/L (98-107); Glucose 90 mg/dL (65-115); Osmolality Calculated 307 mOsm/kg (285-295); Potassium 6.1 mmol/L (3.5-5.1); Sodium 137 mmol/L (136-145)
[2023-05-02 21:45] LABS: Glucose Point of Care 164 mg/dL (70-110)
[2023-05-03] VITALS (14 sets, daily range): BP systolic 115–147; BP diastolic 47–74; PULSE 50–62; RESP 15–26; TEMP 36.4–36.9; O2SAT 94–98
[2023-05-03 03:48] LABS: Basophils # 0.1 10^3/uL (0.0-0.1); Basophils % 0.6 %; Eosinophils # 0.3 10^3/uL (0.0-0.8); Eosinophils % 2.5 %; Hematocrit 33.1 % (37-53); Lymphocytes # 1.5 10^3/uL (0.8-4.8); Lymphocytes % 10.8 %; Mean Corpuscular HGB Conc 30.2 g/dL (30-55); Mean Platelet Volume 10.1 fL (7.4-10.4); Monocytes # 0.8 10^3/uL (0.2-0.9); Neutrophils # 10.45 10^3/uL (1.8-7.7); Neutrophils % 75.8 %; Nucleated Red Blood Cells % 0 %; Platelet Count 381 10^3/cmm (157-399); Red Blood Count 3.85 10^6/uL (3.85-5.65); Red Cell Distribution Width 20.9 % (12.1-15.1); White Blood Count 13.77 10^3/uL (3.29-11.43)
[2023-05-03 04:07] LABS: Anion Gap 15.8 (5-19); Blood Urea Nitrogen 80 mg/dL (8-23); Carbon Dioxide 24 mmol/L (22-29); Chloride 101 mmol/L (98-107); Glucose 104 mg/dL (65-115); Osmolality Calculated 304 mOsm/kg (285-295); Potassium 5.8 mmol/L (3.5-5.1); Sodium 135 mmol/L (136-145)
[2023-05-03 04:14] LABS: Magnesium 1.5 mg/dL (1.7-2.3)
[2023-05-03] MEDS: metoprolol tartrate 50 mg Tablet PO ×2 (05:42→19:06)
[2023-05-03 06:33] LABS: Glucose Point of Care 102 mg/dL (70-110)
[2023-05-03] MEDS: amiodarone 200 mg Tablet PO ×2 (09:40→19:07)
[2023-05-03] MEDS: sucralfate 1 gm Tablet PO ×2 (09:40→20:56)
[2023-05-03] MEDS: sennosides-docusate Tablet 1 TAB PO (09:40)
[2023-05-03] MEDS: pantoprazole DR 40 mg Tablet PO ×2 (09:40→19:06)
[2023-05-03] MEDS: sodium polystyrene sulfonate 15 gm/60 mL Btl PO ×2 (09:41→20:56)
[2023-05-03] MEDS: mupirocin oint 22 gm 1 APPLIC TOPICAL ×3 (09:43→20:57)
--- NOTE | 2023-05-03 10:48 | PC.SOCIAL ---
IMM update IMM updated with patient. Verbalized an understanding. Copy pg 2 provided. Initialled, dated, timed, and placed in chart.
[2023-05-03 11:43] LABS: Glucose Point of Care 133 mg/dL (70-110)
[2023-05-03] MEDS: piperacillin-tazobactam 3.375 GM in sodium chloride 0.9% (plus) 50 ML IV ×2 (12:27→22:10)
--- NOTE | 2023-05-03 14:14 | PM.PN ---
Subjective Subjective: Patient was seen this morning, he tells me that when he was at [facility], he was in a lot of pain and they would not give him any pain medications, currently denies any pain, no back pain, no pelvic pain, no fevers, no chills Vitals/I&O/Wt Last Vital Signs Temp 98.3 F 05/03/23 11:35 Pulse 60 05/03/23 11:35 Resp 18 05/03/23 11:35 BP 139/68 05/03/23 11:35 Pulse Ox 95 05/03/23 11:35 O2 Del Method Room Air 05/03/23 07:42 O2 Flow Rate 1 04/29/23 08:34 05/02/23 05/03/23 05/03/23 22:59 06:59 14:59 Intake Total 650 / 1610 200 / 1810 840 / 840 Output Total 315 / 815 250 / 1065 Balance 335 / 795 -50 / 745 840 / 840 Physical Exam Const: COMMON NORMALS: no acute distress ORIENTATION/CONSCIOUSNESS: Yes awake, Yes oriented to person and Yes oriented to place; not oriented to time Resp: COMMON NORMALS: normal respiratory effort, No retractions, No use of accessory muscles and clear to auscultation bilaterally AUSCULTATION: clear to auscultation bilaterally Cardio: COMMON NORMALS: regular rate, regular rhythm, S1 normal heart sound present and S2 normal heart sound present RATE: regular rate RHYTHM: regular rhythm HEART SOUNDS: S1 normal heart sound present and S2 normal heart sound present GI: COMMON NORMALS: Normal to inspection, nondistended, normoactive bowel sounds present and non-tender Extremity: COMMON NORMALS: no pedal edema Neuro: SENSORIUM/ORIENTATION: Yes oriented to person, Yes oriented to place and No oriented to time Urinary Catheter Management: Sheikh: Cath Placed During This Visit: yes Reason for Continuing Indwelling Catheter: Accurate Measurement of Urinary Output in Critically Ill Patients Urinary Catheter Date of Insertion: 04/20/23 Urinary Catheter Time of Insertion: 23:29 Data 05/03/23 03:15 05/03/23 03:15 Micro: Microbiology 04/26/23 04:45 Mycobacterial Smear - Preliminary Sputum - Expectorated Sputum A&P Assessment and plan (1) Sepsis: (2) Urinary tract infection: Qualifiers: Hematuria presence: with hematuria Urinary tract infection type: acute cystitis Qualified Code(s): N30.01 - Acute cystitis with hematuria (3) Leukocytosis: Qualifiers: Leukocytosis type: unspecified Qualified Code(s): D72.829 - Elevated white blood cell count, unspecified (4) Chronic kidney disease: Qualifiers: Chronic kidney disease stage: unspecified stage Qualified Code(s): N18.9 - Chronic kidney disease, unspecified (5) Chronic anemia: (6) Coronary artery disease: (7) Protein calorie malnutrition: (8) Physical deconditioning: (9) Muscle wasting: (10) Iron deficiency anemia: (11) Gram-negative bacteremia: (12) Hyperkalemia: (13) Acute kidney injury: (14) Atrial fibrillation with RVR: Plan # Sepsis Present on admission, please see H&P from admitting provider for criteria and initial management of sepsis. Source of sepsis is from UTI Blood culture 04/20 showing providencia staurtii Thus far blood cultures from April 22 are negative to date. Urine cx with klebsiella oxytoca and providencia Currently patient is on treatment with piperacillin/tazobactam based on susceptibilities. clinically improving continue piperacillin/tazobactam for total duration to be 14 days from clearance of bacteremia. (April 22 to May 04) Plan transition back to SNF, cleared from [facility] standpoint. Awaiting prior Auth to transition back to nursing facility where he usually lives. # Chronic kidney disease: CT chest abdomen and pelvis performed on this admission did not show any signs of obstructive pyelonephritis. - Severely elevated WBC at 57,000 upon admission which is now resolving. Leukocytosis has stabilized at 14. -Creatinine is currently at recent baseline -Antibiotics dose adjusted based on creatinine clearance. # A-fib with RVR Continue metoprolol 50 mg twice daily Continue amiodarone 200 mg twice daily, monitor LFTs Heart rate currently well controlled anticoagulation relatively contraindicated given anemia, hb 5.2 in Mar 22, 2023. Endocsopic exam deferred on last admission as there were no active signs of bleeding. No intra abdominal bleeding. May be related to CKD however may benefit from outpatient endoscopic evaluation prior to considering any anticoagulation No active signs of bleeding this admission. #Transaminitis: Elevated ALT and alkaline phosphatase, now resolved. Right upper quadrant ultrasound without any signs of cholecystitis but does show some gallbladder wall edema. Suspect this may be related to gallbladder sludging. Clinically no signs of cholecystitis. # Incidentally noted infiltrates on CT chest read to be mild tuberculosis per radiology read. Quantiferon negative AFB smear negative x3 from state lab. No clinical signs or symptoms of TB CT chest findings likely related to other old granulomatous disease. Currently no respiratory symptoms, patient is on room air saturating well. Given 3 negative sputum smears, will discontinue isolation. Tuberculosis ruled out. Full code SCDs for DVT prophylaxis, anticoagulation relatively contraindicated given anemia Disposition: Overall stable for discharge. Patient is a resident of a group home facility. Needs prior Auth to transition back. We will continue IV antibiotics while he is in the hospital. Plan for today: Continue iv abx, last dose tomorrow, discharge thereafter, for hypokalemia 2 doses of Kayexalate Attestations Medical Necessity Statement*: Patient requires hospitalization for bacteremia, required IV antibiotics, for total 14 days, hyperkalemia Diagnoses Sepsis A41.9 Urinary tract infection N30.01 Hematuria presence: with hematuria Urinary tract infection type: acute cystitis Leukocytosis D72.829 Leukocytosis type: unspecified Chronic kidney disease N18.9 Chronic kidney disease stage: unspecified stage Chronic anemia D64.9 Coronary artery disease I25.10 Protein calorie malnutrition E46 Physical deconditioning R53.81 Muscle wasting M62.50 Iron deficiency anemia D50.9 Gram-negative bacteremia R78.81 Hyperkalemia E87.5 Acute kidney injury N17.9 Atrial fibrillation with RVR I48.91
--- NOTE | 2023-05-03 16:31 | PC.NURSE ---
An attempt was made to check for COVID as a precursor for him to return to the SNF tomorrow. When an attempt was made, the pt was adamant that we were not going to be shoving anything else up his nose. The pt referenced back to when the RT attempted to obtain a sputum and the pt stated that he hurt him and made him cry because it hurt so bad. notified.
--- NOTE | 2023-05-03 16:55 | PC.NURSE ---
Addendum entered by Adama Mann RN 05/03/23 16:56: Dr. Bernard notified Original Note: pt refusing to have COVID swab performed so that he may go back to SNF tomorrow.
[2023-05-03 17:12] LABS: Glucose Point of Care 152 mg/dL (70-110)
[2023-05-03] MEDS: insulin lispro 100 unit/1 mL SUBCUT (19:07)
[2023-05-03 20:37] LABS: Glucose Point of Care 113 mg/dL (70-110)
--- NOTE | 2023-05-03 21:48 | PC.NURSE ---
patient still adamantly refusing covid swab, attempted to communicate to patient that he could swab his own nares, patient still refusing
[2023-05-04 03:13] VITALS: BP 157/63; PULSE 58; RESP 19; TEMP 36.4; O2SAT 98
[2023-05-04 04:22] LABS: Basophils # 0.1 10^3/uL (0.0-0.1); Basophils % 0.8 %; Eosinophils # 0.3 10^3/uL (0.0-0.8); Eosinophils % 2.5 %; Hematocrit 33.6 % (37-53); Lymphocytes # 1.5 10^3/uL (0.8-4.8); Lymphocytes % 11.6 %; Mean Corpuscular HGB Conc 28.9 g/dL (30-55); Mean Corpuscular Hemoglobin 25.9 pg (27-33); Mean Corpuscular Volume 89.8 fl (82-101); Mean Platelet Volume 10.1 fL (7.4-10.4); Monocytes # 0.9 10^3/uL (0.2-0.9); Monocytes % 6.8 %; Neutrophils # 10.01 10^3/uL (1.8-7.7); Neutrophils % 75.6 %; Nucleated Red Blood Cells % 0 %; Platelet Count 358 10^3/cmm (157-399); Red Blood Count 3.74 10^6/uL (3.85-5.65); Red Cell Distribution Width 21.2 % (12.1-15.1); White Blood Count 13.24 10^3/uL (3.29-11.43)
[2023-05-04 04:28] VITALS: PULSE 56
[2023-05-04 04:41] LABS: Magnesium 1.5 mg/dL (1.7-2.3)
[2023-05-04 04:42] LABS: Anion Gap 15.4 (5-19); Calcium 8.6 mg/dL (8.5-10.5); Carbon Dioxide 24 mmol/L (22-29); Chloride 104 mmol/L (98-107); Glucose 101 mg/dL (65-115); Osmolality Calculated 311 mOsm/kg (285-295); Potassium 5.4 mmol/L (3.5-5.1); Sodium 138 mmol/L (136-145)
[2023-05-04 04:51] LABS: Blood Urea Nitrogen 82 mg/dL (8-23)
[2023-05-04] MEDS: metoprolol tartrate 50 mg Tablet PO (05:09)
[2023-05-04 06:08] LABS: Glucose Point of Care 97 mg/dL (70-110)
[2023-05-04 08:00] VITALS: PULSE 59; RESP 18; O2SAT 95
[2023-05-04] MEDS: piperacillin-tazobactam 3.375 GM in sodium chloride 0.9% (plus) 50 ML IV (08:16)
[2023-05-04] MEDS: amiodarone 200 mg Tablet PO (08:18)
[2023-05-04] MEDS: sucralfate 1 gm Tablet PO (08:18)
[2023-05-04] MEDS: pantoprazole DR 40 mg Tablet PO (08:18)
[2023-05-04] MEDS: sennosides-docusate Tablet 1 TAB PO (08:18)
[2023-05-04] MEDS: sodium chloride 0.9% 1,000 ML 75 ML IV (08:32)
[2023-05-04] MEDS: magnesium sulfate premix 2 GM/50 ML PIGGYBACK IV (08:33)
[2023-05-04] MEDS: mupirocin oint 22 gm 1 APPLIC TOPICAL (08:37)
[2023-05-04 10:07] VITALS: BP 122/70; PULSE 54; RESP 17; TEMP 36.9; O2SAT 98
--- NOTE | 2023-05-04 10:09 | PC.NURSE ---
Patient refusing COVID swab. Spoke with case management who spoke with the custodial. snf agreed that the negative results from April 21 were acceptable for patient to return.
--- NOTE | 2023-05-04 11:01 | PM.DCS ---
Discharge Providers Date of Admission: 04/20/23 23:04 Date of Discharge: May 04, 2023 Attending Provider at Admission: Jevon Carvajal DO Attending Provider at Discharge: Joshua Bernard MD Primary Care Provider: Adama Olmedo MD Diagnoses at Discharge Discharge Diagnosis (1) Sepsis: Status: Acute (2) Urinary tract infection: Status: Acute Qualifiers: Hematuria presence: with hematuria Urinary tract infection type: acute cystitis Qualified Code(s): N30.01 - Acute cystitis with hematuria (3) Leukocytosis: Status: Acute Qualifiers: Leukocytosis type: unspecified Qualified Code(s): D72.829 - Elevated white blood cell count, unspecified (4) Chronic kidney disease: Status: Acute Qualifiers: Chronic kidney disease stage: unspecified stage Qualified Code(s): N18.9 - Chronic kidney disease, unspecified (5) Chronic anemia: Status: Acute (6) Coronary artery disease: Status: Acute (7) Protein calorie malnutrition: Status: Acute (8) Physical deconditioning: Status: Acute (9) Muscle wasting: Status: Acute (10) Iron deficiency anemia: Status: Acute (11) Gram-negative bacteremia: Status: Acute (12) Hyperkalemia: Status: Acute (13) Acute kidney injury: Status: Acute (14) Atrial fibrillation with RVR: Status: Acute Reason for Visit Reason for Visit: Abd Pain Hospital Course Hospital Course This is a 87-year-old male who is very hard of hearing, CHF, CKD stage III, COPD, history of CAD who presents [facility] who presented to [facility] for sepsis from UTI, gram-negative bacteremia, KEEGAN on CKD, with significant leukocytosis, anemia, physical deconditioning, hypomagnesemia, hypokalemia, A-fib with RVR For his sepsis secondary to UTI, had gram-negative bacteremia, providencia staurtii, repeat blood cultures were negative, required 14 days of IV antibiotics, completed inpatient IV antibiotics For his acute urinary retention, enlarged prostate, discharged him with a Sheikh catheter placed, follow-up with urology as outpatient for voiding trial For his CKD, monitor creatinine outpatient, creatinine 3.1, BUN 82 For his A-fib with RVR, requiring inpatient treatment, discharged on metoprolol 50 mg twice daily, amiodarone 200 mg once daily Had transaminitis during his hospitalization, monitor as outpatient He was incidentally noted to have infiltrates on his CT chest, read as mild tuberculosis, QuantiFERON negative, AFB smears negative x3, no clinical signs or symptoms of TB, likely related to old granulomatous disease, tremulousness likely ruled out Discharged to [facility] facility, PT OT, Physical Exam Const: COMMON NORMALS: no acute distress Resp: COMMON NORMALS: normal respiratory effort, No retractions, No use of accessory muscles and clear to auscultation bilaterally AUSCULTATION: clear to auscultation bilaterally Cardio: COMMON NORMALS: regular rate, regular rhythm, S1 normal heart sound present and S2 normal heart sound present RATE: regular rate RHYTHM: regular rhythm HEART SOUNDS: S1 normal heart sound present and S2 normal heart sound present GI: COMMON NORMALS: Normal to inspection, nondistended, normoactive bowel sounds present and non-tender Extremity: COMMON NORMALS: no pedal edema Psych: COMMON NORMALS: mental status grossly normal Urinary Catheter Management: Sheikh: Cath Placed During This Visit: yes Reason for Continuing Indwelling Catheter: Accurate Measurement of Urinary Output in Critically Ill Patients Urinary Catheter Date of Insertion: 04/20/23 Urinary Catheter Time of Insertion: 23:29 Discharge Data Studies Completed and Pending Completed Studies During Hospitalization Category Date Time Status CT chest abdomen pelvis [[place] [id number] Cat Scan 04/20/23 20:23 Completed ] [place] [address] Routine Ultrasound 04/27/23 16:52 Completed US renal BI* [id number] Routine Ultrasound 04/21/23 14:23 Completed US venous duplex upper extremity LT [CV venous duplex Ultrasound 04/25/23 09:01 [place] [address]] Routine Pending at discharge Category Date Time Status AFB [Mycobacteria, Culture w/Fluor] Q8H Lab 04/25/23 18:43 Uncollected AFB [Mycobacteria, Culture w/Fluor] Q8H Lab 04/26/23 04:45 Results Basic Metabolic Panel AM LABS Lab 05/05/23 04:00 Ordered Complete Blood Count w/Auto AM LABS Lab 05/05/23 04:00 Ordered Magnesium AM LABS Lab 05/05/23 04:00 Ordered Miscellaneous Test Routine Lab 04/25/23 15:00 Received Miscellaneous Test Routine Lab 04/26/23 04:45 Received Miscellaneous Test Routine Lab 04/26/23 08:00 Received Radiology Impressions Chest/Abdomen/Pelvis CT 04/20/23 20:23 IMPRESSION: 1. Severe calcified coronary artery disease. 2. Mild nodular opacities in the inferior segment lingula and left lower lobe suggesting mild tuberculosis versus other inflammatory condition. IMPRESSION: Severe colonic diverticulosis. COMMENTS: Consistent with the [place] [employer]'s Incidental Findings Committee white paper (J Am Chacho Radiol 2018): Any incidental renal lesion less than 1 cm or classified as too small to characterize, or any incidental cystic renal lesion characterized as simple-appearing, is likely benign. No follow-up imaging is recommended for these lesions per consensus recommendations based on imaging criteria. Venous Duplex 04/25/23 09:01 IMPRESSION: No evidence of deep vein thrombosis. Note: Several images are incorrectly labeled right . Only the left upper extremity was evaluated. Laboratory Results WBC 13.24 10^3/uL (3.29-11.43) H 05/04/23 04:00 RBC 3.74 10^6/uL (3.85-5.65) L 05/04/23 04:00 Hgb 9.70 g/dL (11.27-16.99) L 05/04/23 04:00 Hct 33.6 % (37-53) L 05/04/23 04:00 MCV 89.8 fl (82-101) 05/04/23 04:00 MCH 25.9 pg (27-33) L 05/04/23 04:00 MCHC 28.9 g/dL (30-55) L 05/04/23 04:00 RDW 21.2 % (12.1-15.1) H 05/04/23 04:00 Plt Count 358 10^3/cmm (157-399) 05/04/23 04:00 MPV 10.1 fL (7.4-10.4) 05/04/23 04:00 Neut % (Auto) 75.6 % 05/04/23 04:00 Lymph % (Auto) 11.6 % 05/04/23 04:00 [place] % (Auto) 6.8 % 05/04/23 04:00 Eos % (Auto) 2.5 % 05/04/23 04:00 Baso % (Auto) 0.8 % 05/04/23 04:00 Neut # (Auto) 10.01 10^3/uL (1.8-7.7) H 05/04/23 04:00 Lymph # (Auto) 1.5 10^3/uL (0.8-4.8) 05/04/23 04:00 [place] # (Auto) 0.9 10^3/uL (0.2-0.9) 05/04/23 04:00 Eos # (Auto) 0.3 10^3/uL (0.0-0.8) 05/04/23 04:00 Baso # (Auto) 0.1 10^3/uL (0.0-0.1) 05/04/23 04:00 Nucleated RBC % (auto) 0 % 05/04/23 04:00 Total Counted 100 (0-100) 04/27/23 03:40 Atypical Lymphs % Not Reportable 04/27/23 03:40 Segmented Neutrophils 81 % 04/27/23 03:40 Abs Segm Neuts (Man) 11.7 10/cmm (1.6-7.1) H 04/27/23 03:40 Band Neutrophils Not Reportable 04/27/23 03:40 Lymphocytes (Manual) 9 % 04/27/23 03:40 Monocytes (Manual) 6.0 % 04/27/23 03:40 Absolute Monocytes 0.9 10^3/cmm (0.1-0.6) H 04/27/23 03:40 Eosinophils (Manual) 0 % 04/27/23 03:40 Absolute Eosinophils 0.0 10^3/cmm (0.0-0.7) 04/27/23 03:40 Basophils (Manual) 0.0 % 04/27/23 03:40 Absolute Basophils 0.0 10^3/cmm (0.0-0.2) 04/27/23 03:40 Myelocytes 4.0 % 04/27/23 03:40 Nucleated RBCs # 0.0 /100WBC 05/04/23 04:00 Platelet Estimate Normal (Normal) 04/27/23 03:40 PT 15.50 SECONDS (12.1-14.9) H 04/21/23 12:45 INR 1.19 (0.8-1.2) 04/21/23 12:45 APTT 32.6 SECONDS (23.9-36.7) 04/21/23 12:45 Fibrinogen 800 mg/dL (174-498) H 04/21/23 12:45 Fibrin Degrad Products <5 mcg/mL (LESS THAN 5) 04/21/23 13:00 D-Dimer 2.41 ug/mLFEU (0-0.59) H 04/21/23 12:45 Sodium 138 mmol/L (136-145) 05/04/23 04:00 Potassium 5.4 mmol/L (3.5-5.1) H 05/04/23 04:00 Chloride 104 mmol/L (98-107) 05/04/23 04:00 Carbon Dioxide 24 mmol/L (22-29) 05/04/23 04:00 Anion Gap 15.4 (5-19) 05/04/23 04:00 BUN 82 mg/dL (8-23) H* 05/04/23 04:00 Creatinine 3.1 mg/dL (0.7-1.2) H 05/04/23 04:00 GFR Calculation Not Reportable 05/04/23 04:00 Glucose 101 mg/dL (65-115) 05/04/23 04:00 POC Glucose 97 mg/dL (70-110) 05/04/23 06:00 Calculated Osmolality 311 mOsm/kg (285-295) H 05/04/23 04:00 Lactic Acid 1.0 mmol/L (0.5-2.2) 04/20/23 20:37 Lactate 0.9 mmol/L (0.5-2.2) 04/24/23 03:36 Calcium 8.6 mg/dL (8.5-10.5) 05/04/23 04:00 Phosphorus 2.9 mg/dL (2.5-4.5) 04/24/23 03:36 Magnesium 1.5 mg/dL (1.7-2.3) L 05/04/23 04:00 Iron 15 ug/dL (59-158) L 04/21/23 05:49 Iron Cancelled 04/21/23 05:49 TIBC 201 mcg/dl 04/21/23 05:49 % Saturation 7.4 % (20-50) L 04/21/23 05:49 Unsat Iron Binding 186 ug/dL (112-347) 04/21/23 05:49 Ferritin 228 ng/mL (30-400) 04/21/23 05:49 Total Bilirubin 0.2 mg/dL (0.15-1.2) 05/02/23 03:09 AST 12 U/L (0-40) 05/02/23 03:09 ALT 20 U/L (0-41) 05/02/23 03:09 Alkaline Phosphatase 111 U/L (40-130) 05/02/23 03:09 Troponin T Baseline 67 ng/L (0-15) H 04/21/23 22:58 Troponin T 120 Minute 61.51 ng/L (0-15) H 04/22/23 01:09 Delta Troponin T -5.49 ABS# (0-10) L 04/22/23 01:09 Troponin T Hi Sens 6Hr 59.37 ng/L (0-15) H 04/22/23 04:03 Troponin T Hi Sens 6Hr Delta -7.63 ng/L (0-12) L 04/22/23 04:03 C-Reactive Protein 187.4 mg/L (0.0-4.9) H 04/24/23 03:36 NT-Pro-B Natriuret Pep 64588 pg/mL (0-450) H 04/25/23 03:27 Total Protein 6.9 g/dL (6.6-8.7) 05/02/23 03:09 Albumin 3.4 g/dL (3.5-5.2) L 05/02/23 03:09 Globulin 3.5 g/dL (1.3-4.6) 05/02/23 03:09 Procalcitonin 2.51 ng/mL (0-0.5) H 04/24/23 03:36 TSH 0.98 uIU/mL (0.27-4.20) 04/21/23 05:49 TSH Cancelled 04/21/23 05:49 Random Cortisol 26.16 ug/dL (2.47-19.5) H 04/21/23 05:49 Urine Color Yellow (Yellow) 04/20/23 19:28 Urine Appearance Cloudy (CLEAR) A 04/20/23 19:28 Urine pH 6 (5-7) 04/20/23 19:28 Ur Specific [place] 1.010 (1.005-1.030) 04/20/23 19:28 Urine Protein 3+ (Negative) H 04/20/23 19:28 Urine Glucose (UA) Norm (Normal) 04/20/23 19:28 Urine Ketones Negative (Negative) 04/20/23 19:28 Urine Blood 2+ (Negative) H 04/20/23 19:28 Urine Nitrate Positive (Negative) H 04/20/23 19:28 Urine Bilirubin Neg (Negative) 04/20/23 19:28 Urine Urobilinogen Norm mg/dL (Negative) 04/20/23 19:28 Ur Leukocyte Esterase 2+ (Negative) H 04/20/23 19:28 Urine RBC 5-10 /hpf (0-2) H 04/20/23 19:28 Urine WBC 55-80 /hpf (0-5) H 04/20/23 19:28 Ur Eosinophil Smear 0 (0-0) 04/21/23 18:20 Ur Squamous Epith Cells 0-4 /hpf (0-5) H 04/20/23 19:28 Amorphous Sediment Not Reportable 04/20/23 19:28 Urine Bacteria 3+ /hpf (NONE) H 04/20/23 19:28 Urine Eosinophils No eosinophils seen 04/21/23 18:20 Ur Random Sodium 70 mmol/L 04/21/23 18:20 Ur Random Potassium 30 mmol/L 04/21/23 18:20 Ur Random Chloride 58 mmol/L 04/21/23 18:20 Nasal Influ A H1 2008 PCR Not detected (NOT DETECT) 04/21/23 18:16 Adenovirus (PCR) Not detected (NOT DETECT) 04/21/23 18:16 C. pneumoniae DNA (PCR) Not detected (NOT DETECT) 04/21/23 18:16 Coronavirus 229E (PCR) Not detected (NOT DETECT) 04/21/23 18:16 Hepatitis A IgM Ab Non-reactive (Nonreactive) 04/28/23 04:37 Hep Bs Antigen Non-reactive (Nonreactive) 04/28/23 04:37 Hep Bs Antibody 3.5 (11.5-1000) L 04/28/23 04:37 Hep B Core Total Ab Non-reactive (Nonreactive) 04/28/23 04:37 Hepatitis C Antibody Non-reactive (Nonreactive) 04/28/23 04:37 Human Metapneumovir PCR Not detected (NOT DETECT) 04/21/23 18:16 Influenza A (H1) PCR Not detected (NOT DETECT) 04/21/23 18:16 Influenza A (H3) PCR Not detected (NOT DETECT) 04/21/23 18:16 Influenza Type A (PCR) Not detected (NOT DETECT) 04/21/23 18:16 Influenza Type B (PCR) Not detected (NOT DETECT) 04/21/23 18:16 M. pneumoniae (PCR) Not detected (NOT DETECT) 04/21/23 18:16 Parainfluenza 1 (PCR) Not detected (NOT DETECT) 04/21/23 18:16 Parainfluenza 2 (PCR) Not detected (NOT DETECT) 04/21/23 18:16 Parainfluenza 3 (PCR) Not detected (NOT DETECT) 04/21/23 18:16 Parainfluenza 4 (PCR) Not detected (NOT DETECT) 04/21/23 18:16 RSV Type A (PCR) Not detected (NOT DETECT) 04/21/23 18:16 RSV Type B (PCR) Not detected (NOT DETECT) 04/21/23 18:16 Entero/Rhino (PCR) Not detected (NOT DETECT) 04/21/23 18:16 SARS-CoV-2 (PCR) Not detected (NOT DETECT) 04/21/23 18:16 TB (QFT) Gold In Tube Negative (NEGATIVE) 04/25/23 12:17 TB Test (QFT) Nil 0.02 IU/mL 04/25/23 12:17 TB Test (QFT) Mitogen >10.00 IU/mL 04/25/23 12:17 TB Test Mitogen - Nil 0.00 IU/mL 04/25/23 12:17 TB Test TB -Nil 0.00 IU/mL 04/25/23 12:17 Blood Type O Positive 04/21/23 15:36 Rho(D) Type Positive 04/21/23 15:36 Antibody Screen Negative 04/21/23 15:36 Crossmatch See Detail 04/21/23 15:36 Vitals Last Vital Signs Temp 98.4 F 05/04/23 10:07 Pulse 54 L 05/04/23 10:07 Resp 17 05/04/23 10:07 BP 122/70 05/04/23 10:07 Pulse Ox 98 09/13/23 10:07 O2 Del Method Room Air 05/04/23 10:07 O2 Flow Rate 1 04/29/23 08:34 Discharge Plan Discharge Patient Disposition: Xfer SNF Condition: Stable Prescriptions: New sucralfate 1 gram Tablet 1 g PO Q12H 30 Days Qty: 60 0RF pantoprazole 40 mg Tablet,Delayed Release (Dr/Ec) 40 mg PO BID 30 Days Qty: 60 0RF amiodarone [Pacerone] 200 mg Tablet 200 mg PO DAILY 30 Days Qty: 30 0RF insulin aspart U-100 [Novolog FlexPen U-100 Insulin] 100 unit/mL (3 mL) insulin pen See Rx Instructions .ROUTE .COMPLEX Qty: 15 0RF Rx Instructions: Inject, subcut, 3 times daily, after meals, based on sliding scale provided Continued Aspir-81 81 mg Tablet,Delayed Release (Dr/Ec) 81 mg PO DAILY@07 Tylenol Ex Str Rapid Release 500 mg Tablet 1,000 mg PO Q6H PRN (Reason: Pain) polyethylene glycol 3350 [Miralax] 17 gram powder in packet 17 g PO DAILY PRN (Reason: constipation) Qty: 30 0RF Rx Instructions: mix with 6oz of liquid sennosides-docusate sodium [Stool Softener-Laxative] 8.6-50 mg Tablet 1 tab PO DAILY Qty: 60 0RF ipratropium-albuterol 0.5 mg-3 mg(2.5 mg base)/3 mL solution for nebulization 3 ml INHALATION TID amlodipine 10 mg tablet 10 mg PO DAILY@07 bisacodyl [Dulcolax (bisacodyl)] 10 mg Suppository 10 mg CO DAILY PRN (Reason: Constipation) Rx Instructions: if no bm for 3 days budesonide 0.25 mg/2 mL suspension for nebulization 0.25 mg inhalation BID albuterol sulfate 90 mcg/actuation HFA aerosol inhaler 2 puff INHALATION Q6H PRN (Reason: Wheezing) sodium bicarbonate 650 mg Tablet 650 mg PO DAILY Qty: 30 0RF metoprolol tartrate 50 mg tablet 50 mg PO BID Qty: 60 0RF Discontinued hydralazine 25 mg Tablet 50 mg PO TID Qty: 90 3RF Discharge Orders: Discharge Order (Routine); Ordered 05/04/23 Ordered By: Joshua Bernard Referrals: Davi Phillips MD [Physician] - 2 weeks Adama Olmedo MD [Primary Care Provider] - 1-3 days Discharge Diet: Cardiac Discharge Activity: Resume usual activity Activity Restrictions/Additional Instructions: - Please drink plenty of electrolyte balanced fluids -Recheck creatinine in 48 hours, on discharge 3.1, BUN 82 -For atrial fibrillation continue aspirin 81 mg, continue metoprolol 50 mg twice daily, amiodarone 200 mg once daily Discharge Attestations Time Spent in Discharge Care*: greater than 30 min Status at Discharge: Cognitive status at discharge: cognitively intact, Behavioral status at discharge: cooperative, Quality Metrics Clinical Quality Measures [ No reported AMI, CVA or VTE this stay] Coding Level of Care Code 34741 Total time (in minutes) for Discharge: 45 Diagnoses Sepsis A41.9 Urinary tract infection N30.01 Hematuria presence: with hematuria Urinary tract infection type: acute cystitis Leukocytosis D72.829 Leukocytosis type: unspecified Chronic kidney disease N18.9 Chronic kidney disease stage: unspecified stage Chronic anemia D64.9 Coronary artery disease I25.10 Protein calorie malnutrition E46 Physical deconditioning R53.81 Muscle wasting M62.50 Iron deficiency anemia D50.9 Gram-negative bacteremia R78.81 Hyperkalemia E87.5 Acute kidney injury N17.9 Atrial fibrillation with RVR I48.91
[2023-05-04 11:23] LABS: Glucose Point of Care 115 mg/dL (70-110)
[2023-05-04 12:02] VITALS: BP 122/70; PULSE 54; RESP 17; TEMP 36.9; O2SAT 98
== END 2023-05-04 14:42 | disposition skilled nursing facility (03) | DRG 690 ==
LOC: ER 22:34 → MEDSURG 23:29 → CSU 04-23 17:53
PROVIDERS: Student in an Organized Health Care Education/Training Program; Admitting Provider Internal Medicine; Emergency Provider Emergency Medicine; PCP Family Medicine; Visit Provider Family Medicine
DX: N30.21 Other chronic cystitis with hematuria (principal); N17.9 Acute kidney failure, unspecified; E46 Unspecified protein-calorie malnutrition; Z68.1 Body mass index [BMI] 19.9 or less, adult; B96.1 Klebsiella pneumoniae [K. pneumoniae] as the cause of diseases classified elsewhere; I12.9 Hypertensive chronic kidney disease with stage 1 through stage 4 chronic kidney disease, or unspecified chronic kidney disease; N18.9 Chronic kidney disease, unspecified; D50.9 Iron deficiency anemia, unspecified; D63.1 Anemia in chronic kidney disease; J44.9 Chronic obstructive pulmonary disease, unspecified; I25.10 Atherosclerotic heart disease of native coronary artery without angina pectoris; Z95.5 Presence of coronary angioplasty implant and graft; I48.91 Unspecified atrial fibrillation; E83.42 Hypomagnesemia; E87.5 Hyperkalemia; N40.1 Benign prostatic hyperplasia with lower urinary tract symptoms; R33.8 Other retention of urine; Z79.82 Long term (current) use of aspirin; Z79.51 Long term (current) use of inhaled steroids; Z03.89 Encounter for observation for other suspected diseases and conditions ruled out; Z87.891 Personal history of nicotine dependence; I25.2 Old myocardial infarction; Z86.16 Personal history of COVID-19
CPT/HCPCS: 36415; 36416; 36430; 36592; 51702; 51798; 71250; 74176; 76705; 76770; 80048; 80053; 81001; 82274; 82436; 82533; 82728; 82962; 83540; 83550; 83605; 83630; 83735; 83880; 84100; 84133; 84145; 84300; 84443; 84484; 85007; 85014; 85018; 85025; 85362; 85378; 85384; 85610; 85730; 85999; 86140; 86480; 86705; 86706; 86709; 86803; 86850; 86900; 86920; 87015; 87040; 87077; 87086; 87116; 87150; 87186; 87205; 87206; 87340; 87486; 87506; 87581; 87633; 87801; 93005; 93971; 94640; 96365; 96372; 96375; 96376; 97161; 97166; 97530; 99285; C9113; J0282; J0610; J1815; J1885; J1940; J2270; J2405; J2543; J3370; J3475; J3490; J7030; J7050; J7060; J7626; P9016; P9040; Q3014

== ENCOUNTER → 2023-06-06 10:23 | Outpatient (BNVA) | payer MEDICARE, MEDICAID, SELFPAY | PROVIDERS: PCP Family Medicine; Visit Provider Internal Medicine Cardiovascular Disease | DX: I48.91 Unspecified atrial fibrillation (principal); I25.10 Atherosclerotic heart disease of native coronary artery without angina pectoris; I13.0 Hypertensive heart and chronic kidney disease with heart failure and stage 1 through stage 4 chronic kidney disease, or unspecified chronic kidney disease; E78.2 Mixed hyperlipidemia; N18.9 Chronic kidney disease, unspecified; J44.9 Chronic obstructive pulmonary disease, unspecified; D64.9 Anemia, unspecified; K92.2 Gastrointestinal hemorrhage, unspecified; Z87.891 Personal history of nicotine dependence; R94.31 Abnormal electrocardiogram [ECG] [EKG] | CPT/HCPCS: 93005; 99214 ==

== ENCOUNTER 2023-07-26 07:41 | Oncology outpatient (recurring) (ONCR) | payer MEDICARE, MEDICAID, SELFPAY ==
[2023-07-26 09:21] LABS: Basophils # 0.1 10^3/uL (0.0-0.1); Basophils % 0.4 %; Eosinophils # 0.2 10^3/uL (0.0-0.8); Eosinophils % 1.9 %; Hematocrit 35.6 % (37-53); Lymphocytes # 1.6 10^3/uL (0.8-4.8); Lymphocytes % 12.2 %; Mean Corpuscular HGB Conc 30.3 g/dL (30-55); Mean Corpuscular Hemoglobin 26.9 pg (27-33); Mean Corpuscular Volume 88.8 fl (82-101); Monocytes # 0.8 10^3/uL (0.2-0.9); Monocytes % 6.6 %; Neutrophils # 9.87 10^3/uL (1.8-7.7); Neutrophils % 77.9 %; Nucleated Red Blood Cells % 0 %; Platelet Count 265 10^3/cmm (157-399); Red Blood Count 4.01 10^6/uL (3.85-5.65); Red Cell Distribution Width 21.2 % (12.1-15.1); White Blood Count 12.68 10^3/uL (3.29-11.43)
[2023-07-26 09:22] LABS: Reticulocyte % 0.9 % (0.5-2.0)
[2023-07-26 09:39] LABS: Erythrocyte Sedimentation Rate 10 mm/hr (0-10)
[2023-07-26 09:55] LABS: Alanine Aminotransferase 6 U/L (0-41); Albumin Level 4.1 g/dL (3.5-5.2); Alkaline Phosphatase 87 U/L (40-130); Anion Gap 16.3 (5-19); Aspartate Amino Transferase 10 U/L (0-40); Blood Urea Nitrogen 49 mg/dL (8-23); Calcium 8.9 mg/dL (8.5-10.5); Carbon Dioxide 24 mmol/L (22-29); Chloride 104 mmol/L (98-107); Ferritin 48 ng/mL (30-400); Glucose 144 mg/dL (65-115); Iron 49 ug/dL (59-158); Lactate Dehydrogenase 187 U/L (135-225); Osmolality Calculated 304 mOsm/kg (285-295); Percent Saturation 19.2 % (20-50); Potassium 5.3 mmol/L (3.5-5.1); Sodium 139 mmol/L (136-145); Thyroid Stimulating Hormone 3.84 uIU/mL (0.27-4.20); Total Bilirubin 0.2 mg/dL (0.15-1.2); Total Iron Binding Capacity 255 mcg/dl; Total Protein 7.1 g/dL (6.6-8.7); Unsaturated Iron Binding 206 ug/dL (112-347); Vitamin B12 622 pg/mL (232-1245)
[2023-07-26 10:16] LABS: Folate Level 6.3 ng/mL (4.5-32.2)
[2023-07-26 10:27] LABS: Hepatitis A Antibody IgM Non-Reactive (Nonreactive); Hepatitis B Core AB, Total Non-Reactive (Nonreactive); Hepatitis B Surface Antigen Non-Reactive (Nonreactive); Hepatitis C Virus Antibody Non-Reactive (Nonreactive)
[2023-07-26 10:30] LABS: Hepatitis B Surface AB < 3.5 (11.5-1000)
[2023-07-27 11:34] LABS: PROTEIN, TOTAL 6.6 g/dL (6.1-8.1)
[2023-07-27 17:45] LABS: ALBUMIN 3.7 g/dL (3.8-4.8); ALPHA 1 GLOBULIN 0.3 g/dL (0.2-0.3); ALPHA 2 GLOBULIN 0.8 g/dL (0.5-0.9); BETA 1 GLOBULIN 0.4 g/dL (0.4-0.6); BETA 2 GLOBULIN 0.3 g/dL (0.2-0.5)
[2023-07-28 14:50] LABS: KAPPA LIGHT CHAIN, FREE, SERUM 90.3 mg/L (3.3-19.4); KAPPA/LAMBDA LIGHT CHAINS FREE 1.32 (0.26-1.65); LAMBDA LIGHT CHAIN, FREE, SERU 68.6 mg/L (5.7-26.3)
[2023-07-28 19:34] LABS: Copper Level 109 mcg/dL (70-175)
[2023-07-29 08:05] LABS: Methylmalonic Acid 588 nmol/L (87-318)
== END 2023-08-21 23:59 | disposition home or self-care (01) ==
PROVIDERS: PCP Family Medicine; Visit Provider Internal Medicine
DX: D50.9 Iron deficiency anemia, unspecified (principal); D64.9 Anemia, unspecified; K92.2 Gastrointestinal hemorrhage, unspecified; E78.2 Mixed hyperlipidemia; I48.91 Unspecified atrial fibrillation; Z79.899 Other long term (current) drug therapy
CPT/HCPCS: 36415; 80053; 82525; 82607; 82728; 82746; 83540; 83550; 83615; 83883; 83921; 84155; 84165; 84443; 85025; 85045; 85651; 86140; 86334; 86335; 86705; 86706; 86709; 86803; 87340; 99204

== ENCOUNTER 2023-07-28 07:26 | Outpatient (CLI) | payer MEDICARE, MEDICAID, SELFPAY ==
[2023-07-29 15:51] LABS: CREATININE, 24 HOUR URINE 0.34 g/24 h (0.50-2.15); PROTEIN, TOTAL, 24 HR UR 235 mg/24 h (<150); Protein/Creatinine Ratio 0.701 (<0.100); Protein/Creatinine Ratio 701 mg/g creat (<100)
[2023-08-01 08:55] LABS: ALBUMIN 35 %; ALPHA-1-GLOBULINS 5 %; ALPHA-2-GLOBULINS 13 %; BETA GLOBULINS 25 %; GAMMA GLOBULINS 22 %
== END 2023-07-28 07:27 | disposition home or self-care (01) ==
LOC: LAB 07:27
PROVIDERS: PCP Family Medicine; Visit Provider Internal Medicine
DX: D50.9 Iron deficiency anemia, unspecified (principal)
CPT/HCPCS: 84156; 84166

== ENCOUNTER 2023-10-21 07:51 | Outpatient (CLI) | payer MEDICARE, MEDICAID, SELFPAY ==
--- NOTE | 2023-10-21 09:00 | CT_ITS ---
WS: [id number] CT chest wo con [id number] HISTORY: history of abnormal ct, smoker TECHNIQUE: Axial imaging performed through the thorax. Coronal and sagittal reformats are submitted. All CT scans at [facility] use at least one of these dose optimization techniques: automated exposure control; mA and/or kV adjustment per patient size (includes targeted exams where dose is mat ched to clinical indication); or iterative reconstruction. CONTRAST: None DLP: 232.91 mGy.cm COMPARISON: 04/20/2023 Lungs and central airway: Severe centrilobular emphysema. Lungs are hyperexpanded. Limited by breathi ng motion artifact. New pulmonary nodule at the RIGHT lung base just above the diaphragm measures 8 x 12 x 11 mm. Margins are very slightly spiculated. Previously described areas of mild bronchial thick ening at the lung bases and in the lingula are reidentified. These areas appear slightly improved. Fo moe area of mild opacification has increased in the LEFT lower lobe, image 44 of series 4. Pleura: Normal. No pleural effusion. Heart and pericardium: Normal size heart with no pericardial effusion. Mediastinum and truong: Mediastinal and hilar lymph nodes. Some of these lymph nodes are calcified cons istent with benign granulomatous disease. No adenopathy of any significance. Vessels: Mild ectasia and atherosclerosis aorta. No aneurysm. Normal size pulmonary artery. Dense moe cifications in the [place] coronary arteries. Chest wall and lower neck: No soft tissue masses. 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 Lipoma measures 11 mm just beyond the GE junction. Vis ualized spleen and liver are negative. There are additional low-attenuation masses involving the supe rior poles of each kidney which were also previously described on a CT from 2020. The adrenal glands are not completely included. Osseous structures: Remote healed sternal fracture. IMPRESSION: 1. Severe chronic emphysema. 2. New RIGHT lower lobe pulmonary nodule measuring 8 x 12 x 11 mm since 04/20/2023. Additional new suazo bsolid opacification in the LEFT lower lobe. Recommend 3-month chest CT follow-up. 3. Previously described opacifications in the lingula and LEFT lower lobe are not as apparent today. Study is compromised due to breathing motion artifact. 4. No adenopathy identified.
== END 2023-10-21 07:52 | disposition home or self-care (01) ==
LOC: RAD 07:52
PROVIDERS: PCP Family Medicine; Visit Provider Internal Medicine
DX: R91.1 Solitary pulmonary nodule (principal); J43.9 Emphysema, unspecified; D64.9 Anemia, unspecified; Z87.891 Personal history of nicotine dependence
CPT/HCPCS: 71250

== ENCOUNTER 2023-11-09 08:50 | Oncology outpatient (recurring) (ONCR) | payer MEDICARE, MEDICAID, SELFPAY ==
[2023-11-09 09:33] LABS: Basophils # 0.1 10^3/uL (0.0-0.1); Basophils % 0.6 %; Eosinophils # 0.3 10^3/uL (0.0-0.8); Eosinophils % 2.7 %; Hematocrit 36.8 % (37-53); Lymphocytes # 1.9 10^3/uL (0.8-4.8); Lymphocytes % 15.1 %; Mean Corpuscular HGB Conc 31.5 g/dL (30-55); Mean Corpuscular Hemoglobin 28.3 pg (27-33); Mean Corpuscular Volume 89.8 fl (82-101); Mean Platelet Volume 10.4 fL (7.4-10.4); Monocytes # 0.6 10^3/uL (0.2-0.9); Monocytes % 4.6 %; Neutrophils # 9.27 10^3/uL (1.8-7.7); Nucleated Red Blood Cells % 0 %; Platelet Count 268 10^3/cmm (157-399); White Blood Count 12.37 10^3/uL (3.29-11.43)
[2023-11-09 09:58] LABS: Alanine Aminotransferase 8 U/L (0-41); Albumin Level 3.7 g/dL (3.5-5.2); Alkaline Phosphatase 71 U/L (40-130); Anion Gap 16.1 (5-19); Aspartate Amino Transferase 8 U/L (0-40); Blood Urea Nitrogen 44 mg/dL (8-23); Calcium 8.7 mg/dL (8.5-10.5); Carbon Dioxide 24 mmol/L (22-29); Chloride 107 mmol/L (98-107); Ferritin 53 ng/mL (30-400); Globulin 2.5 g/dL (1.3-4.6); Glucose 123 mg/dL (65-115); Iron 68 ug/dL (59-158); Osmolality Calculated 307 mOsm/kg (285-295); Percent Saturation 30.4 % (20-50); Potassium 5.1 mmol/L (3.5-5.1); Sodium 142 mmol/L (136-145); Total Bilirubin 0.2 mg/dL (0.15-1.2); Total Iron Binding Capacity 223 mcg/dl; Total Protein 6.2 g/dL (6.6-8.7); Unsaturated Iron Binding 155 ug/dL (112-347)
[2023-11-09 10:14] LABS: Vitamin B12 603 pg/mL (232-1245)
[2023-11-09 10:17] LABS: Folate Level 5.7 ng/mL (4.5-32.2)
[2023-11-12 13:05] LABS: Methylmalonic Acid 404 nmol/L (87-318)
[2023-11-15 12:19] LABS: Soluble Transferrin Receptor 1.06 mg/L (0.76-1.76)
== END 2023-11-20 23:59 | disposition home or self-care (01) ==
PROVIDERS: Internal Medicine Medical Oncology; PCP Family Medicine; Visit Provider Internal Medicine
DX: Z53.9 Procedure and treatment not carried out, unspecified reason (principal); D50.9 Iron deficiency anemia, unspecified; K92.2 Gastrointestinal hemorrhage, unspecified; D64.9 Anemia, unspecified; Z79.899 Other long term (current) drug therapy
CPT/HCPCS: 36415; 80053; 82607; 82728; 82746; 83540; 83550; 83921; 84238; 85025; 99214

== ENCOUNTER → 2024-01-02 10:11 | Outpatient (BNVA) | payer MEDICARE, MEDICAID, SELFPAY | PROVIDERS: PCP Family Medicine; Visit Provider Internal Medicine Cardiovascular Disease | DX: I48.19 Other persistent atrial fibrillation (principal); E78.2 Mixed hyperlipidemia; I25.10 Atherosclerotic heart disease of native coronary artery without angina pectoris; I13.2 Hypertensive heart and chronic kidney disease with heart failure and with stage 5 chronic kidney disease, or end stage renal disease; N18.5 Chronic kidney disease, stage 5; I50.9 Heart failure, unspecified; Z87.891 Personal history of nicotine dependence | CPT/HCPCS: 99214 ==

== ENCOUNTER 2024-10-01 10:09 | Inpatient (IN) | payer MEDICARE, MEDICAID, SELFPAY ==
[2024-10-01] VITALS (12 sets, daily range): BP systolic 125–177; BP diastolic 72–124; PULSE 68–93; RESP 16–26; TEMP 36.4–36.6; O2SAT 92–100; BMI 18.6
--- NOTE | 2024-10-01 10:13 | XR_ITS ---
WS: [id number] PORTABLE CHEST HISTORY: dyspnea/cough COMPARISON: 06/13/2022 Pulmonary hyperexpansion. New subtle increased attenuation in the RIGHT hilar region measuring 12 mm. No pneumonia. No pleural effusion or pneumothorax. Cardiac size: Normal. Mediastinum/Aorta: Mild atherosclerosis aorta. Bilateral AC joint arthritis. Age-indeterminate rib fractures anterolateral LEFT eighth and ninth ribs. These fractures do not appear acute. XR/XR chest 1V portable [id number] IMPRESSION: 1. Very subtle area of increased attenuation in the RIGHT hilar region measuri ng 12 mm. This opacification is not been present on prior studies. Consider fol low-up chest CT with IV contrast. 2. Chronic emphysema.
--- NOTE | 2024-10-01 10:22 | ECG_ITS ---
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 Measurements Intervals [place] Rate: 78 P: 83 CA: 167 QRS: 89 QRSD: 105 T: 55 QT: 386 QTc: 440 Interpretive Statements SINUS RHYTHM WITH OCCASIONAL VENTRICULAR PREMATURE COMPLEXES Compared to ECG 06/06/2023 10:37:20 Ventricular premature complex(es) now present Electronically Signed On 10-03-2024 17:58:35 PLASTIC WELDER by Davi Phillips M.D. [email or web address] [id number]
--- NOTE | 2024-10-01 10:50 | W.ED.SOB ---
HPI - SOB/Dyspnea General: Chief Complaint: Shortness of Breath/Dyspnea Stated Complaint: SOB Time Seen by Provider: 10/01/24 10:13 History of Present Illness: HPI Narrative: 81-year-old male presents emergency room complaining of shortness of breath and cough. Patient has a history of COPD chronically wears 3 L by nasal cannula they have increased it to 4 L. He is extremely hard of hearing is difficult to get a history. He cannot understand most of the questions but mostly simply because of his hearing issues. Were able to get some answers to questions uncertain how reliable they are because of his difficulty with hearing Associated symptoms: Reports abdominal pain and chest congestion; Deny chest pain Related Data Home Medications ?Medication ?Instructions ?Recorded ?Confirmed albuterol sulfate 90 mcg/actuation 2 puff inhalation Q6H PRN Wheezing 03/23/23 10/01/24 aerosol inhaler bisacodyl 10 mg rectal suppository 10 mg TX DAILY PRN Constipation 03/23/23 10/01/24 (Dulcolax (bisacodyl)) budesonide 0.25 mg/2 mL suspension 0.25 mg inhalation BID 03/23/23 10/01/24 for nebulization ipratropium 0.5 mg-albuterol 3 mg 3 ml inhalation TID 03/23/23 10/01/24 (2.5 mg base)/3 mL nebulization soln acetaminophen 500 mg tablet 1,000 mg PO Q6H PRN Pain 04/21/23 10/01/24 aspirin 81 mg tablet,delayed 81 mg PO DAILY@07 04/21/23 10/01/24 release finasteride 5 mg tablet 5 mg PO DAILY 06/01/23 10/01/24 amiodarone 200 mg tablet 200 mg PO DAILY 06/06/23 10/01/24 Lactobacillus rhamnosus GG 10 1 cap PO DAILY 11/09/23 10/01/24 billion cell-inulin 200 mg capsule doxycycline hyclate 100 mg capsule 100 mg PO BID 10/01/24 10/01/24 furosemide 20 mg tablet 20 mg PO DAILY 10/01/24 10/01/24 metoprolol tartrate 50 mg tablet 25 mg PO BID 10/01/24 10/01/24 prednisone 20 mg tablet 40 mg PO DAILY 10/01/24 10/01/24 Previous Rx's ?Medication ?Instructions ?Recorded polyethylene glycol 3350 17 gram 17 g PO DAILY PRN constipation #30 03/19/22 oral powder packet (Miralax) ea sennosides 8.6 mg-docusate sodium 1 tab PO DAILY #60 tabs 06/14/22 50 mg tablet (Stool Softener-Laxative) sodium bicarbonate 650 mg tablet 650 mg PO DAILY #30 tabs 03/25/23 Allergies Allergy/AdvReac Type Severity Reaction Status Date / Time No Known Allergies Allergy Verified 01/02/24 10:37 Review of Systems General: Reports: ROS unobtainable due to medical condition (Some questions answered see below difficult because of diminished hearing) Card: Denies: chest pain Resp: Reports: dyspnea, non-productive cough and chest congestion GI: Reports: abdominal pain PFSH ED PFSH: Medical History Chronic kidney disease, stage 5 Anemia Acute exacerbation of CHF (congestive heart failure) Chronic lower GI bleeding Acute exacerbation of chronic obstructive airways disease Hyperkalemia COVID SVT (supraventricular tachycardia) Non-ST elevation myocardial infarction (NSTEMI) Cognitive impairment Constipation Hypertension Coronary artery disease Hyperlipidemia COPD (chronic obstructive pulmonary disease) Hemorrhagic shock Surgical History Stented coronary artery 3 stents at [facility] 16 years ago Family History Denies family history of Clotting disorder Chronic kidney disease (CKD) Social History Smoking and tobacco/nicotine status: former use of tobacco/nicotine Quit status (tobacco/nicotine): has quit using Former quit date comment: Quit smoking few weeks ago Alcohol intake: never Substance/Drug Use: never Household members: family Housing: House Physical Exam Const: GENERAL APPEARANCE: cooperative ORIENTATION/CONSCIOUSNESS: Yes awake HENMT: COMMON NORMALS: normocephalic and atraumatic HEAD & SCALP: normocephalic and atraumatic Resp: EFFORT & INSPECTION: Yes tachypneic AUSCULTATION: rhonchi and wheezes Cardio: COMMON NORMALS: regular rate, regular rhythm and No murmurs present (Cardio) RATE: regular rate RHYTHM: regular rhythm GI: COMMON NORMALS: Soft to palpation and No hepatosplenomegaly present AUSCULTATION: Yes normoactive bowel sounds PALPATION: Yes Soft to palpation, No Tenderness to palpation present (GI), No Guarding due to palpation present (GI) and Yes No hepatosplenomegaly present Extremity: COMMON NORMALS: normal to inspection, capillary refill normal, no clubbing, cyanosis or edema, no calf tenderness and no pedal edema Skin: COMMON NORMALS: no rashes or lesions noted GENERAL SKIN EXAM: no rashes or lesions noted Course Vital Signs: Vital signs: Vital Signs Temperature 97.5 F L 10/01/24 10:11 Pulse Rate 78 10/01/24 13:36 Respiratory Rate 26 H 10/01/24 13:36 Blood Pressure 130/73 10/01/24 11:59 Pulse Oximetry 99 10/01/24 13:36 Oxygen Delivery Me thod Nasal Cannula 10/01/24 13:36 Oxygen Flow Rate 5 10/01/24 13:36 MDM - SOB/Dyspnea Medical Decision Making Acute kidney injury with urinary retention will place She[facility]. He also has hyperkalemia hyperkalemia treatment initiated. IV fluids given. He has significant leukocytosis which I think is largely due to his prednisone likely also exacerbated by the RSV. He is satting 100% on room air. Blood gases reviewed. He may need to be monitored for signs of DVT however given his oxygen saturation with supplementation I do not think at this point clinically there is a terribly strong suspicion for PE. Will admit for acute kidney injury RSV dyspnea and urinary retention. Discussed with hospitalist orders written hyperkalemia treatments initiated in the emergency room Medical Records I reviewed the patient's medical records. Lab Data I reviewed the patient's lab results. 10/01/24 10:47 10/01/24 12:59 Labs/Radiology: Radiology Impressions Chest X-Ray 10/01/24 10:13 IMPRESSION: 1. Very subtle area of increased attenuation in the RIGHT hilar region measuring 12 mm. This opacification is not been present on prior studies. Consider follow-up chest CT with IV contrast. 2. Chronic emphysema. Abdomen/Pelvis CT 10/01/24 12:04 IMPRESSION: Images in the upper abdomen degraded by motion 1. Bilateral renal cortical atrophy. No hydronephrosis. 2. Urine distended bladder with bladder outlet obstruction. 3. Enlarged prostate measuring 4.5 cm. Recommend correlation PSA. 4. Extensive sigmoid diverticulosis. 5. Small esophageal hiatal hernia. 6. Bilateral renal cysts. 7. RIGHT colon and hepatic constipation. 8. Partially visualized RIGHT scrotal hydrocele. This is similar to previous. Laboratory Results WBC 22.12 10^3/uL (3.29-11.43) H 10/01/24 10:47 RBC 3.95 10^6/uL (3.85-5.65) 10/01/24 10:47 Hgb 10.90 g/dL (11.27-16.99) L 10/01/24 10:47 Hct 36.7 % (37-53) L 10/01/24 10:47 MCV 92.9 fl (82-101) 10/01/24 10:47 MCH 27.6 pg (27-33) 10/01/24 10:47 MCHC 29.7 g/dL (30-55) L 10/01/24 10:47 RDW 20.4 % (12.1-15.1) H 10/01/24 10:47 Plt Count 244 10^3/cmm (157-399) 10/01/24 10:47 MPV 11.2 fL (7.4-10.4) H 10/01/24 10:47 Neut % (Auto) 88.4 % 10/01/24 10:47 Lymph % (Auto) 5.2 % 10/01/24 10:47 [place] % (Auto) 4.9 % 10/01/24 10:47 Eos % (Auto) 0.0 % 10/01/24 10:47 Baso % (Auto) 0.2 % 10/01/24 10:47 Neut # (Auto) 19.57 10^3/uL (1.8-7.7) H 10/01/24 10:47 Lymph # (Auto) 1.2 10^3/uL (0.8-4.8) 10/01/24 10:47 [place] # (Auto) 1.1 10^3/uL (0.2-0.9) H 10/01/24 10:47 Eos # (Auto) 0.0 10^3/uL (0.0-0.8) 10/01/24 10:47 Baso # (Auto) 0.0 10^3/uL (0.0-0.1) 10/01/24 10:47 Nucleated RBC % (auto) 0 % 10/01/24 10:47 Nucleated RBCs # 0.0 /100WBC 10/01/24 10:47 Specimen Type Arterial 10/01/24 11:05 Sample Site Brachial, right 10/01/24 11:05 ABG pH 7.34 (7.35-7.45) L 10/01/24 11:05 ABG pCO2 38.9 mmHg (35-45) 10/01/24 11:05 ABG pO2 140.0 mmHg (80.0-100.0) H 10/01/24 11:05 ABG PO2/FiO2 Ratio 350 10/01/24 11:05 ABG HCO3 20.8 mmol/L (22-26) L 10/01/24 11:05 ABG O2 Saturation 97.5 10/01/24 11:05 ABG Base Excess -4.7 mmol/L (-2.0-2.0) L 10/01/24 11:05 Massimo Test Pos 10/01/24 11:05 A-a O2 Gradient 12.8 mmHg (5-10) H 10/01/24 11:05 Hematocrit 33.5 % (42-52) L 10/01/24 11:05 Hgb O2 Saturation 96.6 % (95-100) 10/01/24 11:05 Carboxyhemoglobin < 0.3 %THgb (0.4-20.1) L 10/01/24 11:05 Methemoglobin 1.3 % (0.4-1.5) 10/01/24 11:05 Total Hemoglobin 10.9 g/dL (14-18) L 10/01/24 11:05 Sodium 141.0 mmol/L (131-143) 10/01/24 11:05 Potassium 5.4 mmol/L (3.5-5.0) H 10/01/24 11:05 Glucose 150.0 mg/dL (70-115) H 10/01/24 11:05 Ionized Calcium 1.2 mmol/L (1.1-1.4) 10/01/24 11:05 O2 Delivery Device Nc 10/01/24 11:05 O2 Liters/Min 5.0 % 10/01/24 11:05 FiO2 40.0 % 10/01/24 11:05 Compliance Director ID Monro 10/01/24 11:05 Sodium 138 mmol/L (136-145) 10/01/24 10:47 Potassium 5.6 mmol/L (3.5-5.1) H 10/01/24 10:47 Chloride 103 mmol/L (98-107) 10/01/24 10:47 Carbon Dioxide 19 mmol/L (22-29) L 10/01/24 10:47 Anion Gap 21.6 (5-19) H 10/01/24 10:47 BUN 79 mg/dL (8-23) H 10/01/24 10:47 Creatinine 4.6 mg/dL (0.7-1.2) H 10/01/24 10:47 GFR Calculation Not Reportable 10/01/24 10:47 Glucose 148 mg/dL (65-115) H 10/01/24 10:47 Calculated Osmolality 312 mOsm/kg (285-295) H 10/01/24 10:47 Lactic Acid 2.5 mmol/L (0.5-2.2) H 10/01/24 10:47 Calcium 8.9 mg/dL (8.5-10.5) 10/01/24 10:47 Total Bilirubin 0.2 mg/dL (0.15-1.2) 10/01/24 10:47 AST 66 U/L (0-40) H 10/01/24 10:47 ALT 123 U/L (0-41) H 10/01/24 10:47 Alkaline Phosphatase 59 U/L (40-130) 10/01/24 10:47 Total Protein 7.0 g/dL (6.6-8.7) 10/01/24 10:47 Albumin 3.8 g/dL (3.5-5.2) 10/01/24 10:47 Globulin 3.2 g/dL (1.3-4.6) 10/01/24 10:47 Coronavirus (PCR) Negative (Negative) 10/01/24 10:27 Influenza A (PCR) Negative (Negative) 10/01/24 10:27 Influenza Type B (PCR) Negative (Negative) 10/01/24 10: RSV (PCR) Positive (Negative) A 10/01/24 10:27 All radiology interpretation(s) finalized by discharge Discharge Plan Discharge Patient Disposition: Placed in Observation Admit Provider: Rory Sage Clinical Impression: Acute on chronic kidney failure, Anemia, COPD (chronic obstructive pulmonary disease), Protein calorie malnutrition, Atrial fibrillation, Acute hyperkalemia, RSV bronchiolitis, Secondary pneumonia Condition: Stable Coding Level of Care Code ED Strategic Planning Specialist for Rubén Hanna
[2024-10-01 11:02] LABS: Basophils % 0.2 %; Hematocrit 36.7 % (37-53); Lymphocytes # 1.2 10^3/uL (0.8-4.8); Lymphocytes % 5.2 %; Mean Corpuscular HGB Conc 29.7 g/dL (30-55); Mean Corpuscular Hemoglobin 27.6 pg (27-33); Mean Corpuscular Volume 92.9 fl (82-101); Mean Platelet Volume 11.2 fL (7.4-10.4); Monocytes # 1.1 10^3/uL (0.2-0.9); Monocytes % 4.9 %; Neutrophils # 19.57 10^3/uL (1.8-7.7); Neutrophils % 88.4 %; Nucleated Red Blood Cells % 0 %; Platelet Count 244 10^3/cmm (157-399); Red Blood Count 3.95 10^6/uL (3.85-5.65); Red Cell Distribution Width 20.4 % (12.1-15.1); White Blood Count 22.12 10^3/uL (3.29-11.43)
[2024-10-01 11:15] LABS: ABG PCO2 38.9 mmHg (35-45); ABG PH Result 7.34 (7.35-7.45); Alveolar-Arterial Oxygen Gradi 12.8 mmHg (5-10); Arterial Blood Gas Hematocrit 33.5 % (42-52); Base Excess ABG -4.7 mmol/L (-2.0-2.0); Blood Gas Allen Test Pos; Blood Gas Operator Identificat MONRO; Blood Gas Sample Site Brachial, right; Blood Gas Sample Type Arterial; Carboxyhemoglobin < 0.3 %THgb (0.4-20.1); HCO3 ABG 20.8 mmol/L (22-26); HGB O2 Sat 96.6 % (95-100); Ionized Calcium Level - ABG 1.2 mmol/L (1.1-1.4); Methemoglobin 1.3 % (0.4-1.5); Oxygen Device NC; Oxygen Saturation ABG 97.5; PO2 FiO2 Ratio Arterial Blood 350; Potassium Level - ABG 5.4 mmol/L (3.5-5.0); Total Hemoglobin 10.9 g/dL (14-18)
[2024-10-01 11:15] LABS: Influenza A NEGATIVE (Negative); Influenza B NEGATIVE (Negative); SARS-CoV-2 PCR NEGATIVE (Negative)
[2024-10-01 11:20] LABS: Alanine Aminotransferase 123 U/L (0-41); Albumin Level 3.8 g/dL (3.5-5.2); Alkaline Phosphatase 59 U/L (40-130); Anion Gap 21.6 (5-19); Aspartate Amino Transferase 66 U/L (0-40); Blood Urea Nitrogen 79 mg/dL (8-23); Calcium 8.9 mg/dL (8.5-10.5); Carbon Dioxide 19 mmol/L (22-29); Chloride 103 mmol/L (98-107); Creatinine Clr Calc Pharmacy 9.5429; Globulin 3.2 g/dL (1.3-4.6); Glucose 148 mg/dL (65-115); Osmolality Calculated 312 mOsm/kg (285-295); Potassium 5.6 mmol/L (3.5-5.1); Sodium 138 mmol/L (136-145); Total Bilirubin 0.2 mg/dL (0.15-1.2)
[2024-10-01 11:34] LABS: Respiratory Syncytial Virus Ce POSITIVE (Negative)
[2024-10-01 11:48] LABS: Lactic Sepsis W/Reflex 2.5 mmol/L (0.5-2.2)
--- NOTE | 2024-10-01 12:04 | CT_ITS ---
WS: [id number] CT ABDOMEN PELVIS TECHNIQUE: Noncontrast CT of the abdomen and pelvis with coronal and sagittal reformatted images. CLINICAL INFORMATION: Abdominal pain COMPARISON: CT 04/20/2023 DLP: 371.[address] scans at [facility] use at least one of these dose optimization techniques: automated exposure control; mA and/or kV adjustment per patient size (includes targeted exams where dose is matched to clinical indication); or iterative reconstruction. FINDINGS: Images moderately degraded by motion in the upper abdomen. Advanced emphysematous changes in the lung bases. Normal noncontrast liver and spleen. Tiny esophageal hiatal hernia. Fatty atrophy of the pancreas. Bilateral renal cortical atrophy. Bilateral renal cysts. No hydronephrosis. Adrenal glands are normal. Aortic calcification. Tortuous abdominal aorta. Slightly aneurysmal infrarenal abdominal aorta measuring 2.1 x 2.2 cm AP by transverse. Urine distended bladder. Enlarged prostate with bladder outlet obstruction. Prostate measures 4.5 cm. Extensive sigmoid diverticulosis. No evidence of acute diverticulitis. No evidence of small or large bowel obstruction. Mild fecal retention in the RIGHT colon and hepatic flexure. Small fat-containing inguinal hernias. 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 CT/CT abdomen pelvis wo con [id number] IMPRESSION: Images in the upper abdomen degraded by motion 1. Bilateral renal cortical atrophy. No hydronephrosis. 2. Urine distended bladder with bladder outlet obstruction. 3. Enlarged prostate measuring 4.5 cm. Recommend correlation PSA. 4. Extensive sigmoid diverticulosis. 5. Small esophageal hiatal hernia. 6. Bilateral renal cysts. 7. RIGHT colon and hepatic constipation. 8. Partially visualized RIGHT scrotal hydrocele. This is similar to previous.
[2024-10-01] MEDS: calcium chloride 10% Syr 10 mL 1 GM IVP (12:58)
[2024-10-01] MEDS: cefepime 1,000 mg SDV 1000 MG IVP (12:58)
[2024-10-01] MEDS: sodium polystyrene sulfonate 15 gm/60 mL Btl PO (12:58)
[2024-10-01] MEDS: sodium chloride 0.9% 1,000 ML 999 ML IV (12:59)
[2024-10-01] MEDS: insulin regular-human 100 units/1 mL 10 UNIT IVP (12:59)
--- NOTE | 2024-10-01 13:07 | PM.HP ---
Providers/Chief Complaint Admitting Physician: Rory Sage Primary Care Provider: Adama Olmedo MD Chief Complaint: SOB History of Present Illness Pleasant 89-year-old gentleman, very hard of hearing, does not have hearing aids, living at home with his nephew normally, has been short of breath, with cough, malaise, he has history of COPD, normally on 3 L of oxygen. In ER he is found to have leukocytosis 22, mild tachypnea of 20 breaths/min, requiring 4 L nasal cannula oxygen, ABG 7.3/38.9/140 found to be positive for RSV. Additionally with KEEGAN on CKD, creatinine up to 4.6, BUN up to 79 anion gap 21.6, bicarb down to 19 potassium with elevation up to 5.6. Mild transaminitis 66, 123 AST and ALT respectively. RSV positive. Noncontrast abdominal CT without hydronephrosis, with bilateral renal cortical atrophy. Given distended bladder with bladder outlet obstruction. Enlarged prostate, 4.5 cm. Small esophageal hernia, diverticulosis, right colon and hepatic constipation. Right scrotal hydrocele. Review of Systems Const: Denies: fever(s), chills, body aches or malaise ENMT: Denies: throat pain Card: Denies: chest pain, edema, pre-syncope or dyspnea on exertion Resp: Denies: dyspnea, productive cough, change in phlegm color or hemoptysis GI: Denies: abdominal pain, nausea, vomiting, diarrhea, constipation, hematochezia or melena : Denies: flank pain, difficulty urinating, urinary frequency or hematuria Musc: Denies: back pain, joint swelling or joint redness Skin/Breast: Denies: rash or new lesions Neuro: Denies: headache(s) or confusion Medications/Allergies Home Medications ?Medication ?Instructions ?Recorded ?Confirmed ?Last Taken ?Type polyethylene glycol 3350 17 gram 17 g PO DAILY PRN constipation #30 03/19/22 10/01/24 Unknown Rx oral powder packet (Miralax) ea sennosides 8.6 mg-docusate sodium 1 tab PO DAILY #60 tabs 06/14/22 10/01/24 10/01/24 Rx 50 mg tablet (Stool Softener-Laxative) albuterol sulfate 90 mcg/actuation 2 puff inhalation Q6H PRN Wheezing 03/23/23 10/01/24 Unknown History aerosol inhaler bisacodyl 10 mg rectal suppository 10 mg CO DAILY PRN Constipation 03/23/23 10/01/24 Unknown History (Dulcolax (bisacodyl)) budesonide 0.25 mg/2 mL suspension 0.25 mg inhalation BID 03/23/23 10/01/24 10/01/24 History for nebulization ipratropium 0.5 mg-albuterol 3 mg 3 ml inhalation TID 03/23/23 10/01/24 10/01/24 History (2.5 mg base)/3 mL nebulization soln sodium bicarbonate 650 mg tablet 650 mg PO DAILY #30 tabs 03/25/23 10/01/24 10/01/24 Rx acetaminophen 500 mg tablet 1,000 mg PO Q6H PRN Pain 04/21/23 10/01/24 09/29/24 History aspirin 81 mg tablet,delayed 81 mg PO DAILY@07 04/21/23 10/01/24 10/01/24 History release finasteride 5 mg tablet 5 mg PO DAILY 06/01/23 10/01/24 09/30/24 History amiodarone 200 mg tablet 200 mg PO DAILY 06/06/23 10/01/24 10/01/24 History Lactobacillus rhamnosus GG 10 1 cap PO DAILY 11/09/23 10/01/24 Unknown History billion cell-inulin 200 mg capsule doxycycline hyclate 100 mg capsule 100 mg PO BID 10/01/24 10/01/24 10/01/24 History furosemide 20 mg tablet 20 mg PO DAILY 10/01/24 10/01/24 10/01/24 History metoprolol tartrate 50 mg tablet 25 mg PO BID 10/01/24 10/01/24 10/01/24 History prednisone 20 mg tablet 40 mg PO DAILY 10/01/24 10/01/24 10/01/24 History Allergies Allergy/AdvReac Type Severity Reaction Status Date / Time No Known Allergies Allergy Verified 01/02/24 10:37 PFSH Acute PFSH: Medical History Hyperkalemia Chronic kidney disease, stage 5 Anemia Acute exacerbation of CHF (congestive heart failure) Chronic lower GI bleeding Acute exacerbation of chronic obstructive airways disease COVID SVT (supraventricular tachycardia) Non-ST elevation myocardial infarction (NSTEMI) Cognitive impairment Constipation Hypertension Coronary artery disease Hyperlipidemia COPD (chronic obstructive pulmonary disease) Hemorrhagic shock Surgical History Stented coronary artery 3 stents at [facility] 16 years ago Family History Denies family history of Clotting disorder Chronic kidney disease (CKD) Social History Smoking and tobacco/nicotine status: former use of tobacco/nicotine Quit status (tobacco/nicotine): has quit using Former quit date comment: Quit smoking few weeks ago Alcohol intake: never Substance/Drug Use: never Household members: family Housing: House Vitals/I&O/Wt Last Vital Signs Temp 97.5 F L 10/01/24 10:11 Pulse 68 10/01/24 11:59 Resp 20 H 10/01/24 11:59 BP 130/73 10/01/24 11:59 Pulse Ox 92 10/01/24 11:59 O2 Del Method Nasal Cannula 10/01/24 11:59 O2 Flow Rate 4 10/01/24 11:59 09/30/24 10/01/24 10/01/24 22:59 06:59 14:59 Intake Total 0 / 0 Balance 0 / 0 Weight last 48 hrs Weight 60.781 kg Physical Exam Const: COMMON NORMALS: patient oriented x3 and alert GENERAL APPEARANCE: cooperative ORIENTATION/CONSCIOUSNESS: Yes awake HENMT: COMMON NORMALS: oropharynx normal Neck/C-Spine: COMMON NORMALS: no JVD Resp: AUSCULTATION: diminished lung sounds Cardio: COMMON NORMALS: no JVD, regular rhythm, S1 normal heart sound present, S2 normal heart sound present and No murmurs present (Cardio) RHYTHM: regular rhythm HEART SOUNDS: S1 normal heart sound present and S2 normal heart sound present GI: COMMON NORMALS: Normal to inspection, nondistended, normoactive bowel sounds present, Soft to palpation and non-tender PALPATION: Yes Soft to palpation Extremity: COMMON NORMALS: no joint enlargement and no pedal edema Neuro: COMMON NORMALS: patient oriented x3 and moves all extremities SENSORIUM/ORIENTATION: Yes alert Skin: COMMON NORMALS: no rashes or lesions noted GENERAL SKIN EXAM: no rashes or lesions noted Data 10/01/24 10:47 10/01/24 10:47 A&P Assessment and plan (1) Acute kidney injury superimposed on CKD: KEEGAN on CKD, creatinine up to 4.7 on review, BUN reviewed, 83, potassium reviewed, with hyperkalemia 5.8. Received a bolus of fluid. Received a dose of Kayexalate, calcium chloride, albuterol treatment. 10 units of insulin. Monitor for risk of hypoglycemia. POC glucose checks. Hypoglycemia protocol. Place low potassium renal diet. Sheikh catheter placed for decompression with noted urinary bladder outlet obstruction in ER. Maintain Sheikh. Start tamsulosin. Continue finasteride. Will need to follow-up. Reassess renal function. Monitor for worsening metabolic acidosis. Fluid overload. Hold Lasix for now. Check CK. (2) RSV infection: RSV positive with acute on chronic respiratory failure, requiring 5 L nasal current oxygen, normally on 3 for COPD. With acute exacerbation of COPD. Maintain isolation. Treat with IV steroid, breathing treatments. With possible secondary bacterial infection with leukocytosis 22.12, right hilar very subtle area of increased attenuation, possible secondary bacterial pneumonia. Will need follow-up. Zofran as needed if nausea. (3) Hypoxia: Acute on chronic respiratory failure with increased oxygen requirement, initially up to 5 L by nasal cannula, with dyspnea, diminished air entry, wheezing, with exacerbation of COPD secondary to RSV infection. Possible secondary bacterial infection. Sputum culture if able to provide. Empiric antibiotic coverage for now with cefepime, doxycycline. Monitor for risk of encephalopathy. IV steroid with Solu-Medrol, monitor for risk of hyperglycemia, hypertension, encephalopathy, gastritis. Reviewed vitals, CBC, ABG, CMP, respiratory viral studies, chest x-ray, CT abdomen pelvis, ER provider note, discussed with ER provider. (4) Urine retention: Sheikh catheter placed in ER with acute urinary retention, urinary bladder obstruction, KEEGAN. Continue finasteride. Add tamsulosin. Reviewed UA. (5) Hyperkalemia: As above. Follow-up chemistry this afternoon. (6) Transaminitis: Suspect secondary to acute viral illness. Check CK, hold diuretic for now. Plan Right hilar abnormality: Very subtle area of increased attenuation in the RIGHT hilar region measuring 12 mm. This opacification is not been present on prior studies. Consider follow-up chest CT with IV contrast. CKD: Reassess chemistry. Continue bicarb. Anemia: Repeat CBC CHF: Not in exacerbation Hearing loss: Very hard of hearing, no hearing aids. HTN: Monitor blood pressures A-fib: Continue amiodarone, not on anticoagulation due to chronic/recurrent significant anemia, possible GI bleed. History of hemorrhagic shock. PDMP PDMP Reviewed: Not Reviewed Attestations Medical Necessity Statement*: Place in observation for additional assessment management of KEEGAN on CKD, COPD exacerbation secondary to RSV infection with acute on chronic respiratory failure, worsened hypoxia requiring 5 L of oxygen, urine retention, hyperkalemia, additional colitides as above, in a gentleman of very advanced age, with underlying CKD, CHF, anemia, A-fib, additional comorbidities as above. Diagnoses Acute kidney injury superimposed on CKD N17.9; N18.9 RSV infection B33.8 Hypoxia R09.02 Urine retention R33.9 Hyperkalemia E87.5 Transaminitis R74.01
[2024-10-01 13:15] LABS: Reflex Lactate Order REFLEX LACTIC ORDERD
[2024-10-01 13:25] LABS: Anion Gap 19.8 (5-19); Calcium 8.8 mg/dL (8.5-10.5); Carbon Dioxide 21 mmol/L (22-29); Chloride 103 mmol/L (98-107); Creatinine Clr Calc Pharmacy 9.3399; Glucose 132 mg/dL (65-115); Magnesium 1.7 mg/dL (1.7-2.3); Osmolality Calculated 313 mOsm/kg (285-295); Potassium 5.8 mmol/L (3.5-5.1); Sodium 138 mmol/L (136-145)
[2024-10-01 13:29] LABS: Blood Urea Nitrogen 83 mg/dL (8-23)
[2024-10-01] MEDS: albuterol 2.5 mg/3 mL Neb 10 MG INHALATION (13:34)
[2024-10-01 13:37] LABS: Bilirubin Urine Negative (Negative); Blood Urine 1+ (Negative); Glucose Urine UA Negative (Normal); Ketones Urine Negative (Negative); Leukocyte Esterase Urine Negative (Negative); Nitrate Urine Negative (Negative); Protein Urine 1+ (Negative); Specific Gravity, Urine 1.014 (1.005-1.030); Urine Appearance Clear (CLEAR); Urine Color Yellow (Yellow); Urobilinogen Urine 0.2 mg/dL (Negative)
[2024-10-01 13:40] LABS: Add Urine Microscopic? YES; Bacteria Urine None Seen /hpf; Hyaline Casts Urine 2.46 /lpf; RBC Urine 0-2 /hpf (0-2); Squamous Epithelial Cell Urine 0-5 /hpf (0-5); WBC Urine 0-5 /hpf (0-5)
[2024-10-01 13:56] LABS: Glucose Point of Care 115 mg/dL (70-110)
[2024-10-01 14:47] LABS: Lactic Acid level (Lactate) 2.2 mmol/L (0.5-2.2)
[2024-10-01 14:54] LABS: Creatine Phosphokinase 1182 U/L (39-308)
--- NOTE | 2024-10-01 15:17 | USR_ITS ---
PROCEDURE INFORMATION: Exam: US Duplex Lower Extremity Veins, Bilateral Exam date and time: 10/01/2024 3:56 PM Age: 89 years old Clinical indication: Screening exam; Additional info: Assess for dvt TECHNIQUE: Imaging protocol: Real-time duplex ultrasound of the bilateral extremities with 2-D garcia scale, color Doppler flow and spectral waveform analysis including responses to compression and other maneuvers (when performed) with image documentation. Complete exam focused on the lower extremity veins. COMPARISON: US renal BI* [id number] 04/21/2023 2:47 PM FINDINGS: Right deep veins: Unremarkable. The common femoral, femoral, proximal profunda femoral and popliteal veins are patent without thrombus. Normal Doppler waveforms. Normal compressibility and/or augmentation response. Left deep veins: Unremarkable. The common femoral, femoral, proximal profunda femoral and popliteal veins are patent without thrombus. Normal Doppler waveforms. Normal compressibility and/or augmentation response. Superficial veins: Greater saphenous veins at the saphenofemoral junctions are patent bilaterally without thrombus. Soft tissues: Unremarkable. US/[place] [id number] IMPRESSION: No evidence of deep vein thrombosis.
--- NOTE | 2024-10-01 15:31 | PC.NURSE ---
this nurse went to insert gallagher catheter in pt. pt pushed this nurse's hand away multiple times and stated he would be urinating in a urinal. this nurse informed Dr. Mixon.
[2024-10-01] MEDS: methylPREDNISolone sod succ 40 mg/mL INJ 30 MG IVP (18:34)
[2024-10-01] MEDS: sodium chloride 0.9% 1,000 ML 125 ML IV (18:34)
[2024-10-01] MEDS: metoprolol tartrate 50 mg Tablet 25 MG PO (18:34)
[2024-10-01] MEDS: doxycycline 100 mg Tablet PO (18:34)
[2024-10-01] MEDS: tamsulosin 0.4 mg Capsule PO (18:34)
[2024-10-01 19:00] LABS: Anion Gap 20.5 (5-19); Calcium 9.9 mg/dL (8.5-10.5); Carbon Dioxide 20 mmol/L (22-29); Chloride 108 mmol/L (98-107); Creatinine Clr Calc Pharmacy 9.5429; Glucose 138 mg/dL (65-115); Osmolality Calculated 324 mOsm/kg (285-295); Potassium 5.5 mmol/L (3.5-5.1); Sodium 143 mmol/L (136-145)
[2024-10-01 19:02] LABS: Blood Urea Nitrogen 84 mg/dL (8-23)
[2024-10-01] MEDS: budesonide 0.5 mg/2 mL Neb 0.25 MG INHALATION (20:18)
[2024-10-01] MEDS: ipratropium-albuterol 3 mL Neb INHALATION (20:18)
[2024-10-01 20:59] LABS: Glucose Point of Care 156 mg/dL (70-110)
[2024-10-02] VITALS (12 sets, daily range): BP systolic 132–169; BP diastolic 62–88; PULSE 65–86; RESP 16–20; TEMP 36.3–36.6; O2SAT 95–99
[2024-10-02] MEDS: methylPREDNISolone sod succ 40 mg/mL INJ 30 MG IVP ×4 (01:18→23:51)
[2024-10-02] MEDS: cefepime 1,000 mg SDV 1000 MG IVP ×2 (01:18→12:35)
[2024-10-02] MEDS: ipratropium-albuterol 3 mL Neb INHALATION ×4 (01:22→20:39)
[2024-10-02] MEDS: sodium chloride 0.9% 1,000 ML 125 ML IV (02:26)
[2024-10-02 06:45] LABS: Glucose Point of Care 127 mg/dL (70-110)
[2024-10-02] MEDS: finasteride 5 mg Tablet PO (07:57)
[2024-10-02] MEDS: metoprolol tartrate 50 mg Tablet 25 MG PO ×2 (07:57→17:20)
[2024-10-02] MEDS: sennosides-docusate Tablet 1 TAB PO (07:58)
[2024-10-02] MEDS: amiodarone 200 mg Tablet PO (07:58)
[2024-10-02] MEDS: tamsulosin 0.4 mg Capsule PO (07:58)
[2024-10-02] MEDS: aspirin 81 mg EC Tablet PO (07:58)
[2024-10-02] MEDS: sodium bicarbonate 650 mg Tablet PO (07:58)
[2024-10-02] MEDS: doxycycline 100 mg Tablet PO ×2 (07:59→17:20)
[2024-10-02] MEDS: budesonide 0.5 mg/2 mL Neb 0.25 MG INHALATION ×2 (08:36→20:39)
--- NOTE | 2024-10-02 09:51 | PC.CHAP ---
Pastoral Care Encounter/Spiritual Assessment Type of Contact [] Declined pharmacovigilance specialist visit [] Patient/Family/Request visit [] Outpatient visit [] Follow-up visit [] Physician referral [] Code/Alert [] Routine visit [] Staff referral [] Actively dying [] Patient sleeping [] Family support [] [] Out of room [] Palliative care [] [] Receiving care in room [] Pre-surgical visit [] Trauma [] Long length of stay [] ICU visit [x] Other:Contact precautions. No visit. Relational/Emotional Strength [] Patient feels connected with others/family/visitors/staff [] Distress [] Loneliness/isolation [] Abandonment Spirituality of Patient [] Person of Marlene [] Attends Jew of their Marlene [] Believes in Prayer [] Reads Bible or Scientology materials [] There are Spiritual issues to be addressed Security Attendant Interventions [] Prayer [] Active listening [] Non-anxious presence [] Spiritual/emotional support [] Crisis/trauma care [] Spiritual counseling [] Bereavement support [] Provided bereavement packet [] Provided Bible/devotional materials [] Provided toy/stuffed animal, coloring book to patient or family member [] Provided Communion [] Anointing/Purvis [] Salvation [] Completed spiritual assessment [] Other: Impact on Illness or Injury [] Angry [] Fearful [] Anxious [] Often cries [] Exhaustion [] Unable to work [] Unable to attend religion [] Unable to walk/stand [] Unable to read [] Unable to drive [] Unable to eat/drink [] Unable to sleep [] Unable to be with family [] Patient intubated [] Other: Summary Time spent with patient
[2024-10-02 10:01] LABS: Basophils % 0.2 %; Hematocrit 30.2 % (37-53); Lymphocytes # 0.6 10^3/uL (0.8-4.8); Lymphocytes % 3.5 %; Mean Corpuscular HGB Conc 30.5 g/dL (30-55); Mean Corpuscular Hemoglobin 27.9 pg (27-33); Mean Corpuscular Volume 91.5 fl (82-101); Mean Platelet Volume 10.9 fL (7.4-10.4); Monocytes # 0.3 10^3/uL (0.2-0.9); Monocytes % 2.1 %; Neutrophils # 15.23 10^3/uL (1.8-7.7); Neutrophils % 92.2 %; Nucleated Red Blood Cells % 0.2 %; Platelet Count 190 10^3/cmm (157-399); Red Cell Distribution Width 20.1 % (12.1-15.1)
[2024-10-02 10:33] LABS: Alanine Aminotransferase 83 U/L (0-41); Albumin Level 3.1 g/dL (3.5-5.2); Alkaline Phosphatase 46 U/L (40-130); Anion Gap 19.3 (5-19); Aspartate Amino Transferase 36 U/L (0-40); Blood Urea Nitrogen 75 mg/dL (8-23); Calcium 8.4 mg/dL (8.5-10.5); Carbon Dioxide 19 mmol/L (22-29); Chloride 109 mmol/L (98-107); Creatinine Clr Calc Pharmacy 10.4297; Globulin 2.6 g/dL (1.3-4.6); Glucose 145 mg/dL (65-115); Osmolality Calculated 319 mOsm/kg (285-295); Potassium 5.3 mmol/L (3.5-5.1); Sodium 142 mmol/L (136-145); Total Bilirubin 0.2 mg/dL (0.15-1.2); Total Protein 5.7 g/dL (6.6-8.7)
[2024-10-02 11:50] LABS: Glucose Point of Care 153 mg/dL (70-110)
--- NOTE | 2024-10-02 12:00 | P.PN_ITS ---
Subjective 2 Subjective: He feels he is feeling little bit better today. Still having cough. Vitals/I&O/Wt Last Vital Signs Temp 97.7 F 10/02/24 08:00 Pulse 78 10/02/24 08:00 Resp 19 H 10/02/24 08:00 BP 154/63 10/02/24 08:00 Pulse Ox 97 10/02/24 08:00 O2 Del Method Nasal Cannula 10/02/24 08:00 O2 Flow Rate 4 10/02/24 08:00 10/01/24 10/02/24 10/02/24 22:59 06:59 14:59 Intake Total 1120 / 1120 1103.333 / 2223.333 360 / 360 Output Total 75 / 75 400 / 475 Balance 1045 / 1045 703.333 / 1748.333 360 / 360 Weight last 48 hrs Weight 62.097 kg Weight 60.781 kg Weight 60.781 kg Physical Exam 2 Narrative: Severely hard of hearing. Const: COMMON NORMALS: patient oriented x3 and alert GENERAL APPEARANCE: c ooperative ORIENTATION/CONSCIOUSNESS: Yes awake HENMT: COMMON NORMALS: oropharynx normal Neck/C-Spine: COMMON NORMALS: no JVD Resp: COMMON NORMALS: normal respiratory effort AUSCULTATION: wheezes (Mild wheeze right lower lobe) Cardio: COMMON NORMALS: no JVD, regular rhythm, S1 normal heart sound present, S2 normal heart sound present and No murmurs present (Cardio) RHYTHM: regular rhythm HEART SOUNDS: S1 normal heart sound present and S2 normal heart sound present GI: COMMON NORMALS: Normal to inspection, nondistended, normoactive bowel sounds present, Soft to palpation and non-tender PALPATION: Yes Soft to palpation Extremity: COMMON NORMALS: no joint enlargement and no pedal edema Neuro: COMMON NORMALS: patient oriented x3 and moves all extremities S ENSORIUM/ORIENTATION: Yes alert Skin: COMMON NORMALS: no rashes or lesions noted GENERAL SKIN EXAM: no rashes or lesions noted Urinary Catheter Management: Sheikh: Cath Placed During This Visit: yes Reason for Continuing Indwelling Catheter: Acute Urinary Retention or Obstruction Urinary Catheter Date of Insertion: 10/01/24 Urinary Catheter Time of Insertion: 22:19 Data 10/02/24 09:51 10/02/24 09:51 A&P Assessment and plan (1) Acute kidney injury superimposed on CKD: Reviewed vitals, intake and output, reviewed creatinine, BUN, bicarb, anion gap, potassium. Magnesium. Replace hypomagnesemia. Minimal improvement in creatinine, down to 4.3, BUN down to 75. Sheikh catheter was placed last night after he had agreed later on after initially declined. Continue decompression with catheter. Continue finasteride, also started on Flomax. Will maintain catheter for now. Follow-up with urology in office, for reassessment and voiding trial. Repeat chemistry. Still with hyperkalemia, potassium 5.3. Continue low potassium diet. Avoid potassium supplements. Repeat chemistry Sheikh catheter placed for decompression with noted urinary bladder outlet obstruction in ER. Maintain Sheikh. Start tamsulosin. Continue finasteride. Will need to follow-up. Reassess renal function. Monitor for worsening metabolic acidosis. Fluid overload. Reviewed CK, noted mild rhabdomyolysis, 1182. Hold Lasix for now. (2) RSV infection: Continue isolation, breathing treatments, supportive care. Continue oxygen support, wean down as tolerating. Appears to be showing some slow improvement, currently down to 4 L nasal K oxygen, normally on 3. For now continue cefepime for possible secondary bacterial infection, COPD exacerbation. Sputum culture if able to provide. Monitor for risk of encephalopathy, cytopenia, C. difficile with cefepime. On presentation RSV positive with acute on chronic respiratory failure, requiring 5 L nasal current oxygen, normally on 3 for COPD. With acute exacerbation of COPD. Maintain isolation. Treat with IV steroid, breathing treatments. With possible secondary bacterial infection with leukocytosis 22.12, right hilar very subtle area of increased attenuation, possible secondary bacterial pneumonia. Will need follow-up. Zofran as needed if nausea. (3) Hypoxia: Continue IV steroids for now for severe exacerbation of COPD, showing some gradual improvement. Sounding a bit better today, somewhat better energy, still with some wheezing, rhonchi in right lower lobe. Continue steroid, monitor for risk of hyperglycemia, hypertension, encephalopathy, gastritis. C. difficile. Continue isolation, breathing treatments, supportive care. Appears to be showing some slow improvement, currently down to 4 L nasal K oxygen, normally on 3. For now continue cefepime for possible secondary bacterial infection, COPD exacerbation. Sputum culture if able to provide. Monitor for risk of encephalopathy, cytopenia, C. difficile with cefepime. Continue doxycycline Acute on chronic respiratory failure with increased oxygen requirement, initially up to 5 L by nasal cannula, with dyspnea, diminished air entry, wheezing, with exacerbation of COPD secondary to RSV infection. Possible secondary bacterial infection. Sputum culture if able to provide. (4) Urine retention: Sheikh catheter placed for acute urinary retention, urinary bladder obstruction, KEEGAN. Continue finasteride. Add tamsulosin. Reviewed UA. (5) Hyperkalemia: As above. Follow-up chemistry. Received explained. Continue low potassium diet. (6) Transaminitis: Suspect secondary to acute viral illness. Reviewed CK, hold diuretic for now with mild rhabdo. Plan Right hilar abnormality: Very subtle area of increased attenuation in the RIGHT hilar region measuring 12 mm. This opacification is not been present on prior studies. Consider follow-up chest CT with IV contrast. CKD: Reassess chemistry. Continue bicarb. Anemia: Repeat CBC CHF: Not in exacerbation Hearing loss: Very hard of hearing, no hearing aids. HTN: Monitor blood pressures A-fib: Continue amiodarone, not on anticoagulation due to chronic/recurrent significant anemia, possible GI bleed. History of hemorrhagic shock. PDMP PDMP Reviewed: Not Reviewed Attestations 2 Medical Necessity Statement*: Continue admission for assessment management of KEEGAN on CKD, COPD exacerbation with suspected secondary bacterial infection following RSV infection, worse hypoxia compared to usual, urine retention, hyperkalemia, and gentleman of advanced age with multiple underlying comorbidities. and High MDM includes amount and/or complexity of data reviewed/ordered [ resulted lab(s)/test(s), ordered lab(s)/test(s) and other healthcare professional discussion] and described risk of complication, morbidity or mortality of management as documented Diagnoses Acute kidney injury superimposed on CKD N17.9; N18.9 RSV infection B33.8 Hypoxia R09.02 Urine retention R33.9 Hyperkalemia E87.5 Transaminitis R74.01
[2024-10-02] MEDS: magnesium sulfate premix 2 GM/50 ML PIGGYBACK IV (12:35)
[2024-10-02 16:23] LABS: Glucose Point of Care 148 mg/dL (70-110)
[2024-10-02 20:43] LABS: Glucose Point of Care 216 mg/dL (70-110)
[2024-10-03] VITALS (14 sets, daily range): BP systolic 116–176; BP diastolic 68–98; PULSE 63–91; RESP 16–24; TEMP 36.3–36.6; O2SAT 87–98
[2024-10-03] MEDS: ipratropium-albuterol 3 mL Neb INHALATION ×4 (01:08→20:12)
[2024-10-03 05:45] LABS: Basophils % 0.2 %; Lymphocytes # 0.5 10^3/uL (0.8-4.8); Lymphocytes % 3.3 %; Mean Corpuscular HGB Conc 30.3 g/dL (30-55); Mean Corpuscular Hemoglobin 28.3 pg (27-33); Mean Corpuscular Volume 93.5 fl (82-101); Mean Platelet Volume 10.9 fL (7.4-10.4); Monocytes # 0.3 10^3/uL (0.2-0.9); Monocytes % 2.5 %; Neutrophils # 12.39 10^3/uL (1.8-7.7); Neutrophils % 89.9 %; Nucleated Red Blood Cells % 0.3 %; Platelet Count 193 10^3/cmm (157-399); Red Blood Count 3.21 10^6/uL (3.85-5.65); Red Cell Distribution Width 20.3 % (12.1-15.1); White Blood Count 13.79 10^3/uL (3.29-11.43)
[2024-10-03 06:07] LABS: Alanine Aminotransferase 66 U/L (0-41); Albumin Level 3.2 g/dL (3.5-5.2); Alkaline Phosphatase 47 U/L (40-130); Aspartate Amino Transferase 23 U/L (0-40); Blood Urea Nitrogen 76 mg/dL (8-23); Calcium 8.4 mg/dL (8.5-10.5); Carbon Dioxide 18 mmol/L (22-29); Chloride 110 mmol/L (98-107); Creatinine Clr Calc Pharmacy 12.5417; Globulin 2.4 g/dL (1.3-4.6); Glucose 149 mg/dL (65-115); Osmolality Calculated 317 mOsm/kg (285-295); Sodium 141 mmol/L (136-145); Total Bilirubin 0.2 mg/dL (0.15-1.2); Total Protein 5.6 g/dL (6.6-8.7)
[2024-10-03 06:30] LABS: Glucose Point of Care 158 mg/dL (70-110)
[2024-10-03] MEDS: methylPREDNISolone sod succ 40 mg/mL INJ 30 MG IVP (08:40)
[2024-10-03] MEDS: finasteride 5 mg Tablet PO (08:43)
[2024-10-03] MEDS: amiodarone 200 mg Tablet PO (08:43)
[2024-10-03] MEDS: metoprolol tartrate 50 mg Tablet 25 MG PO ×2 (08:43→17:06)
[2024-10-03] MEDS: doxycycline 100 mg Tablet PO ×2 (08:43→17:07)
[2024-10-03] MEDS: tamsulosin 0.4 mg Capsule PO (08:43)
[2024-10-03] MEDS: sodium bicarbonate 650 mg Tablet PO (08:43)
[2024-10-03] MEDS: aspirin 81 mg EC Tablet PO (08:44)
[2024-10-03] MEDS: sennosides-docusate Tablet 1 TAB PO (08:44)
[2024-10-03] MEDS: budesonide 0.5 mg/2 mL Neb 0.25 MG INHALATION ×2 (09:26→20:12)
--- NOTE | 2024-10-03 09:51 | PC.CHAP ---
Pastoral Care Encounter/Spiritual Assessment Type of Contact [] Declined sales relationship manager visit [] Patient/Family/Request visit [] Outpatient visit [] Follow-up visit [] Physician referral [] Code/Alert [] Routine visit [] Staff referral [] Actively dying [] Patient sleeping [] Family support [] [] Out of room [] Palliative care [] [] Receiving care in room [] Pre-surgical visit [] Trauma [] Long length of stay [] ICU visit [x] Other:Contact precautions. No visit. Relational/Emotional Strength [] Patient feels connected with others/family/visitors/staff [] Distress [] Loneliness/isolation [] Abandonment Spirituality of Patient [] Person of Marlene [] Attends Confucianism of their Marlene [] Believes in Prayer [] Reads Bible or Gnosticism materials [] There are Spiritual issues to be addressed Vendor Quality Supervisor Interventions [] Prayer [] Active listening [] Non-anxious presence [] Spiritual/emotional support [] Crisis/trauma care [] Spiritual counseling [] Bereavement support [] Provided bereavement packet [] Provided Bible/devotional materials [] Provided toy/stuffed animal, coloring book to patient or family member [] Provided Communion [] Anointing/Douglas [] Salvation [] Completed spiritual assessment [] Other: Impact on Illness or Injury [] Angry [] Fearful [] Anxious [] Often cries [] Exhaustion [] Unable to work [] Unable to attend cheondoism [] Unable to walk/stand [] Unable to read [] Unable to drive [] Unable to eat/drink [] Unable to sleep [] Unable to be with family [] Patient intubated [] Other: Summary Time spent with patient
[2024-10-03 11:26] LABS: Glucose Point of Care 154 mg/dL (70-110)
[2024-10-03] MEDS: cefepime 1,000 mg SDV 1000 MG IVP (11:34)
--- NOTE | 2024-10-03 15:16 | P.PN_ITS ---
Subjective 2 Subjective: He is more dyspneic today, more congested, with worsening cough, dyspnea on exertion. Vitals/I&O/Wt Last Vital Signs Temp 97.8 F 10/03/24 12:43 Pulse 72 10/03/24 13:15 Resp 22 H 10/03/24 13:15 BP 159/87 10/03/24 12:43 Pulse Ox 96 10/03/24 13:15 O2 Del Method Nasal Cannula 10/03/24 13:15 O2 Flow Rate 4 10/03/24 13:15 10/03/24 10/03/24 10/03/24 06:59 14:59 22:59 Intake Total 480 / 1490 720 / 720 Output Total 300 / 1400 Balance 180 / 90 720 / 720 Weight last 48 hrs Weight 65.045 kg Weight 62.097 kg Weight 60.781 kg Physical Exam 2 Narrative: Severely hard of hearing. Const: COMMON NORMALS: patient oriented x3 and alert GENERAL APPEARANCE: c ooperative ORIENTATION/CONSCIOUSNESS: Yes awake HENMT: COMMON NORMALS: oropharynx normal Neck/C-Spine: COMMON NORMALS: no JVD Resp: COMMON NORMALS: normal respiratory effort AUSCULTATION: rhonchi, wheezes (Mild wheeze right lower lobe) and diminished lung sounds Cardio: COMMON NORMALS: no JVD, regular rhythm, S1 normal heart sound present, S2 normal heart sound present and No murmurs present (Cardio) RHYTHM: regular rhythm HEART SOUNDS: S1 normal heart sound present and S2 normal heart sound present GI: COMMON NORMALS: Normal to inspection, nondistended, normoactive bowel sounds present, Soft to palpation and non-tender PALPATION: Yes Soft to palpation Extremity: COMMON NORMALS: no joint enlargement and no pedal edema Neuro: COMMON NORMALS: patient oriented x3 and moves all extremities S ENSORIUM/ORIENTATION: Yes alert Skin: COMMON NORMALS: no rashes or lesions noted GENERAL SKIN EXAM: no rashes or lesions noted Urinary Catheter Management: Sheikh: Cath Placed During This Visit: yes Reason for Continuing Indwelling Catheter: Acute Urinary Retention or Obstruction Urinary Catheter Date of Insertion: 10/01/24 Urinary Catheter Time of Insertion: 22:19 Data 10/03/24 05:23 10/03/24 05:23 A&P Assessment and plan (1) Hypoxia: Worsening dyspnea, Symptomatic chest congestion,cough, phlegm production, dyspnea on exertion. Increase IV steroid dose to 40 mg every 6 hours. Continue IV steroids for now for severe exacerbation of COPD, showing some gradual improvement. Sounding a bit better today, somewhat better energy, still with some wheezing, rhonchi in right lower lobe. Continue steroid, monitor for risk of hyperglycemia, hypertension, encephalopathy, gastritis. C. difficile. Reviewed vitals, CBC, CMP, sputum culture reviewed, so far and collected. Obtain chest x-ray. Discussed with nursing, human services case manager. Discharge deferred for now. Continue isolation, breathing treatments, supportive care. Appears to be showing some slow improvement, currently down to 4 L nasal K oxygen, normally on 3. For now continue cefepime for possible secondary bacterial infection, COPD exacerbation. Sputum culture if able to provide. Monitor for risk of encephalopathy, cytopenia, C. difficile with cefepime. Continue doxycycline Acute on chronic respiratory failure with increased oxygen requirement, initially up to 5 L by nasal cannula, with dyspnea, diminished air entry, wheezing, with exacerbation of COPD secondary to RSV infection. Possible secondary bacterial infection. Sputum culture if able to provide. (2) Acute kidney injury superimposed on CKD: Reviewed vitals, intake and output, BUN, creatinine, potassium, bicarb, anion gap, chloride, noted mild improvement in renal function, BUN steady around 76, creatinine point improvement to 4.1. Continue decompression of urinary bladder obstruction. Reassess chemistry. Monitor intake and output. Continue Sheikh. Tamsulosin, finasteride. Follow-up with urology in office, for reassessment and voiding trial. Hyperkalemia with improvement, potassium down to 5. Repeat. Reviewed CK, noted mild rhabdomyolysis, 1182. Hold Lasix for now. Repeat CK requested. (3) RSV infection: Continue isolation, breathing treatments, supportive care. Continue oxygen support, wean down as tolerating. Appears to be showing some slow improvement, currently down to 4 L nasal K oxygen, normally on 3. For now continue cefepime for possible secondary bacterial infection, COPD exacerbation. Sputum culture if able to provide. Monitor for risk of encephalopathy, cytopenia, C. difficile with cefepime. On presentation RSV positive with acute on chronic respiratory failure, requiring 5 L nasal current oxygen, normally on 3 for COPD. With acute exacerbation of COPD. Maintain isolation. Treat with IV steroid, breathing treatments. With possible secondary bacterial infection with leukocytosis 22.12, right hilar very subtle area of increased attenuation, possible secondary bacterial pneumonia. Will need follow-up. Zofran as needed if nausea. (4) Urine retention: Sheikh catheter placed for acute urinary retention, urinary bladder obstruction, KEEGAN. Continue finasteride. Add tamsulosin. Reviewed UA. (5) Hyperkalemia: Reviewed potassium, hyperkalemia improved potassium down to 5. Repeat chemistry. As above. Follow-up chemistry. Received explained. Continue low potassium diet. (6) Transaminitis: Continue to show gradual improvement. With mild rhabdo on presentation, repeat CK. Suspect secondary to acute viral illness. Reviewed CK, hold diuretic for now with mild rhabdo. Plan Right hilar abnormality: Very subtle area of increased attenuation in the RIGHT hilar region measuring 12 mm. This opacification is not been present on prior studies. Consider follow-up chest CT with IV contrast. CKD: Reassess chemistry. Continue bicarb. Anemia: Mild gradual worsening of hemoglobin, today down to 9.1. Repeat CBC. with history of protracted/recurrent anemia, hemorrhagic shock, SCD alone for DVT prophylaxis. CHF: Not in exacerbation Hearing loss: Very hard of hearing, no hearing aids. HTN: Monitor blood pressures A-fib: Continue amiodarone, not on anticoagulation due to chronic/recurrent significant anemia, possible GI bleed. History of hemorrhagic shock. Mild gradual worsening of hemoglobin, today down to 9.1. PDMP PDMP Reviewed: Not Reviewed Attestations 2 Medical Necessity Statement*: Continue admission for assessment management of worsening COPD exacerbation, severe exacerbation, RSV infection, KEEGAN. Diagnoses Hypoxia R09.02 Acute kidney injury superimposed on CKD N17.9; N18.9 RSV infection B33.8 Urine retention R33.9 Hyperkalemia E87.5 Transaminitis R74.01
--- NOTE | 2024-10-03 15:29 | XRR_ITS ---
PROCEDURE INFORMATION: Exam: XR Chest Exam date and time: 10/03/2024 3:43 PM Age: 89 years old Clinical indication: Other: Hypoxia; Prior surgery; Surgery date: 6+ months; Surgery type: Coronary stent TECHNIQUE: Imaging protocol: Radiologic exam of the chest. Views: 1 view. COMPARISON: CR XR chest 1V portable [id number] 10/01/2024 10:17 AM FINDINGS: Lungs: There are no acute infiltrates. Pleural spaces: Unremarkable. No pleural effusion. No pneumothorax. Heart/Mediastinum: The heart size is within normal limits. Vasculature: There are atherosclerotic changes in the aorta. Bones/joints: There are degenerative changes in the shoulders. XR/XR chest 1V portable [id number] IMPRESSION: No acute infiltrates.
[2024-10-03] MEDS: guaiFENesin 600 mg Tablet 1200 MG PO ×2 (15:32→17:07)
[2024-10-03] MEDS: methylPREDNISolone sod succ 40 mg/mL INJ IVP ×2 (15:32→21:16)
[2024-10-03 17:05] LABS: Glucose Point of Care 162 mg/dL (70-110)
[2024-10-03 20:47] LABS: Glucose Point of Care 143 mg/dL (70-110)
[2024-10-04] VITALS (13 sets, daily range): BP systolic 158–187; BP diastolic 75–90; PULSE 61–92; RESP 16–22; TEMP 36.3–36.7; O2SAT 95–100
[2024-10-04] MEDS: ipratropium-albuterol 3 mL Neb INHALATION ×4 (01:28→20:20)
[2024-10-04] MEDS: methylPREDNISolone sod succ 40 mg/mL INJ IVP ×4 (02:49→21:30)
[2024-10-04 06:31] LABS: Glucose Point of Care 134 mg/dL (70-110)
[2024-10-04 06:45] LABS: Hematocrit 32.3 % (37-53); Mean Corpuscular HGB Conc 30.7 g/dL (30-55); Mean Corpuscular Hemoglobin 28.3 pg (27-33); Mean Corpuscular Volume 92.3 fl (82-101); Mean Platelet Volume 10.8 fL (7.4-10.4); Platelet Count 185 10^3/cmm (157-399); Red Cell Distribution Width 20.3 % (12.1-15.1); White Blood Count 16.55 10^3/uL (3.29-11.43)
[2024-10-04 06:56] LABS: Alanine Aminotransferase 53 U/L (0-41); Albumin Level 3.4 g/dL (3.5-5.2); Alkaline Phosphatase 45 U/L (40-130); Aspartate Amino Transferase 15 U/L (0-40); Calcium 8.7 mg/dL (8.5-10.5); Carbon Dioxide 18 mmol/L (22-29); Chloride 108 mmol/L (98-107); Creatine Phosphokinase 192 U/L (39-308); Globulin 2.5 g/dL (1.3-4.6); Glucose 135 mg/dL (65-115); Osmolality Calculated 318 mOsm/kg (285-295); Sodium 141 mmol/L (136-145); Total Bilirubin 0.2 mg/dL (0.15-1.2); Total Protein 5.9 g/dL (6.6-8.7)
[2024-10-04 07:22] LABS: Blood Urea Nitrogen 81 mg/dL (8-23)
[2024-10-04 07:33] LABS: Slide Review Slide Review Perform
[2024-10-04 07:36] LABS: Absolute Neutrophil 15.6 10^3/cmm (1.4-6.5); Absolute Segmented Neutrophil 14.9 10/cmm (1.6-7.1); Band Neutrophils Absolute 0.7 10^3/cmm (0.0-1.2); Lymphocytes 2 %; Monocytes Absolute 0.3 10^3/cmm (0.1-0.6); Platelet Estimate Normal (Normal); Segmented Neutrophils 90 %; Total Cells Counted 100 (0-100)
[2024-10-04 07:37] LABS: Eosinophils 0 %; Lymphocytes Absolute 0.3 10^3/cmm (1.2-3.4)
[2024-10-04] MEDS: budesonide 0.5 mg/2 mL Neb 0.25 MG INHALATION ×2 (08:19→20:20)
[2024-10-04] MEDS: sodium bicarbonate 650 mg Tablet PO (10:07)
[2024-10-04] MEDS: guaiFENesin 600 mg Tablet 1200 MG PO ×2 (10:07→18:28)
[2024-10-04] MEDS: doxycycline 100 mg Tablet PO ×2 (10:08→18:28)
[2024-10-04] MEDS: sennosides-docusate Tablet 1 TAB PO (10:08)
[2024-10-04] MEDS: tamsulosin 0.4 mg Capsule PO (10:08)
[2024-10-04] MEDS: metoprolol tartrate 50 mg Tablet 25 MG PO ×2 (10:08→18:28)
[2024-10-04] MEDS: aspirin 81 mg EC Tablet PO (10:08)
[2024-10-04] MEDS: amiodarone 200 mg Tablet PO (10:08)
[2024-10-04] MEDS: finasteride 5 mg Tablet PO (10:08)
--- NOTE | 2024-10-04 10:20 | P.PN_ITS ---
Subjective 2 Subjective: [id number] Vitals/I&O/Wt Last Vital Signs Temp 98.0 F 10/04/24 08:00 Pulse 92 10/04/24 08:20 Resp 20 H 10/04/24 08:20 BP 187/90 10/04/24 08:00 Pulse Ox 98 10/04/24 08:20 O2 Del Method Nasal Cannula 10/04/24 08:20 O2 Flow Rate 4 10/04/24 08:20 10/03/24 10/04/24 10/04/24 22:59 06:59 14:59 Intake Total 240 / 960 0 / 960 120 / 120 Output Total 900 / 900 700 / 1600 Balance -660 / 60 -700 / -640 120 / 120 Weight last 48 hrs Weight 63.049 kg Weight 65.045 kg Physical Exam 2 Narrative: Severely hard of hearing. Const: COMMON NORMALS: patient oriented x3 and alert GENERAL APPEARANCE: c ooperative ORIENTATION/CONSCIOUSNESS: Yes awake HENMT: COMMON NORMALS: oropharynx normal Neck/C-Spine: COMMON NORMALS: no JVD Resp: COMMON NORMALS: normal respiratory effort AUSCULTATION: diminished lung sounds and other (Improvement in rhonchi and wheezing) Cardio: COMMON NORMALS: no JVD, regular rhythm, S1 normal heart sound present, S2 normal heart sound present and No murmurs present (Cardio) RHYTHM: regular rhythm HEART SOUNDS: S1 normal heart sound present and S2 normal heart sound present GI: COMMON NORMALS: Normal to inspection, nondistended, normoactive bowel sounds present, Soft to palpation and non-tender PALPATION: Yes Soft to palpation Extremity: COMMON NORMALS: no joint enlargement and no pedal edema Neuro: COMMON NORMALS: patient oriented x3 and moves all extremities S ENSORIUM/ORIENTATION: Yes alert Skin: COMMON NORMALS: no rashes or lesions noted GENERAL SKIN EXAM: no rashes or lesions noted Urinary Catheter Management: Sheikh: Cath Placed During This Visit: yes Reason for Continuing Indwelling Catheter: Acute Urinary Retention or Obstruction Urinary Catheter Date of Insertion: 10/01/24 Urinary Catheter Time of Insertion: 22:19 Data 10/04/24 06:03 10/04/24 06:03 A&P Assessment and plan (1) Hypoxia: With significant chest congestive changes with secretions, having difficult time bringing them up. Respiratory apparatus quite weak. Spent 5 to 10 minutes to optimize his use of flutter valve, but blows very weakly. Weak cough. Not effectively clearing secretions. Discussed with respite therapist, will utilize chest vest. Continue pulmonary toilet. Continue Mucinex. Continue IV steroid at current time, on review of CBC noted rise of leukocytosis likely secondary to steroid. Afebrile. Does have hypertension. Patient showing some improvement, continue 40 mg every 6 hours for now, will decrease in case of persistent improvement. Continue cefepime, doxycycline. Monitor for risk of encephalopathy. He is providing sputum culture. Follow-up resolved. Reviewed CMP. Minimal transaminitis, repeat CMP. For now continue cefepime for possible secondary bacterial infection, COPD exacerbation. Sputum culture if able to provide. Acute on chronic respiratory failure with increased oxygen requirement, initially up to 5 L by nasal cannula, with dyspnea, diminished air entry, wheezing, with exacerbation of COPD secondary to RSV infection. Possible secondary bacterial infection. Sputum culture if able to provide. (2) Acute kidney injury superimposed on CKD: Reviewed vitals, intake and output, BUN, creatinine, potassium, bicarb, anion gap, chloride, noted mild improvement in renal function, BUN steady around 76, creatinine point improvement to 4.1. Continue decompression of urinary bladder obstruction. Reassess chemistry. Monitor intake and output. Continue Sheikh. Tamsulosin, finasteride. Follow-up with urology in office, for reassessment and voiding trial. Hyperkalemia with improvement, potassium down to 5. Repeat. Reviewed CK, noted mild rhabdomyolysis, 1182. Hold Lasix for now. Repeat CK requested. (3) RSV infection: Patient hypoxic, again requiring liters of oxygen. Continue treatment of COPD exacerbation, clearing secretions. Continue isolation, breathing treatments, supportive care. Continue oxygen support, wean down as tolerating. For now continue cefepime for possible secondary bacterial infection, COPD exacerbation. Sputum culture if able to provide. Monitor for risk of encephalopathy, cytopenia, C. difficile with cefepime. On presentation RSV positive with acute on chronic respiratory failure, requiring 5 L nasal current oxygen, normally on 3 for COPD. With acute exacerbation of COPD. Maintain isolation. Treat with IV steroid, breathing treatments. With possible secondary bacterial infection with leukocytosis 22.12, right hilar very subtle area of increased attenuation, possible secondary bacterial pneumonia. Will need follow-up. Zofran as needed if nausea. (4) Urine retention: Sheikh catheter placed for acute urinary retention, urinary bladder obstruction, KEEGAN. Continue finasteride. Add tamsulosin. Reviewed UA. (5) Hyperkalemia: Reviewed potassium, hyperkalemia improved potassium down to 5. Repeat chemistry. As above. Follow-up chemistry. Received explained. Continue low potassium diet. (6) Transaminitis: Reviewed CMP, resolving. Repeat CMP Continue to show gradual improvement. With mild rhabdo on presentation, repeat CK. Suspect secondary to acute viral illness. Reviewed CK, hold diuretic for now with mild rhabdo. Plan Right hilar abnormality: Very subtle area of increased attenuation in the RIGHT hilar region measuring 12 mm. This opacification is not been present on prior studies. Consider follow-up chest CT with IV contrast. HTN: Add amlodipine for worsening blood pressure with. Continue metoprolol. CKD: Reassess chemistry. Continue bicarb. Anemia: Mild gradual worsening of hemoglobin, today down to 9.1. Repeat CBC. with history of protracted/recurrent anemia, hemorrhagic shock, SCD alone for DVT prophylaxis. CHF: Not in exacerbation Hearing loss: Very hard of hearing, no hearing aids. HTN: Monitor blood pressures A-fib: Continue amiodarone, not on anticoagulation due to chronic/recurrent significant anemia, possible GI bleed. History of hemorrhagic shock. Mild gradual worsening of hemoglobin, today down to 9.1. PDMP PDMP Reviewed: Not Reviewed Attestations 2 Medical Necessity Statement*: Continue admission for assessment management of worsening COPD exacerbation, severe exacerbation, RSV infection, KEEGAN. Coding Level of Care Code Acute Code for [facility] Fwd Diagnoses Hypoxia R09.02 Acute kidney injury superimposed on CKD N17.9; N18.9 RSV infection B33.8 Urine retention R33.9 Hyperkalemia E87.5 Transaminitis R74.01
[2024-10-04 11:45] LABS: Glucose Point of Care 168 mg/dL (70-110)
[2024-10-04] MEDS: amlodipine 5 mg Tablet PO (12:06)
[2024-10-04] MEDS: cefepime 1,000 mg SDV 1000 MG IVP (12:06)
[2024-10-04 16:28] LABS: Glucose Point of Care 350 mg/dL (70-110)
[2024-10-04 20:43] LABS: Glucose Point of Care 202 mg/dL (70-110)
[2024-10-05] VITALS (14 sets, daily range): BP systolic 159–178; BP diastolic 75–88; PULSE 65–84; RESP 16–20; TEMP 36.3–36.8; O2SAT 92–97
[2024-10-05] MEDS: ipratropium-albuterol 3 mL Neb INHALATION ×4 (02:58→21:05)
[2024-10-05] MEDS: methylPREDNISolone sod succ 40 mg/mL INJ IVP (03:29)
[2024-10-05 05:13] LABS: Basophils # 0.1 10^3/uL (0.0-0.1); Basophils % 0.6 %; Hematocrit 32.5 % (37-53); Lymphocytes # 0.5 10^3/uL (0.8-4.8); Lymphocytes % 3.2 %; Mean Corpuscular HGB Conc 30.8 g/dL (30-55); Mean Corpuscular Hemoglobin 27.8 pg (27-33); Mean Corpuscular Volume 90.3 fl (82-101); Mean Platelet Volume 11.5 fL (7.4-10.4); Monocytes # 0.5 10^3/uL (0.2-0.9); Neutrophils # 14.41 10^3/uL (1.8-7.7); Neutrophils % 84.8 %; Nucleated Red Blood Cells # 0.1 /100WBC; Nucleated Red Blood Cells % 0.5 %; Platelet Count 196 10^3/cmm (157-399); Red Cell Distribution Width 19.9 % (12.1-15.1)
[2024-10-05 05:40] LABS: Alanine Aminotransferase 44 U/L (0-41); Albumin Level 3.5 g/dL (3.5-5.2); Alkaline Phosphatase 51 U/L (40-130); Anion Gap 20.4 (5-19); Aspartate Amino Transferase 16 U/L (0-40); Calcium 8.9 mg/dL (8.5-10.5); Carbon Dioxide 18 mmol/L (22-29); Chloride 107 mmol/L (98-107); Creatinine Clr Calc Pharmacy 12.8323; Globulin 2.5 g/dL (1.3-4.6); Glucose 142 mg/dL (65-115); Osmolality Calculated 320 mOsm/kg (285-295); Potassium 5.4 mmol/L (3.5-5.1); Sodium 140 mmol/L (136-145); Total Bilirubin 0.3 mg/dL (0.15-1.2)
--- NOTE | 2024-10-05 05:41 | PC.NURSE ---
patient had gallagher dc'd on 10/04/2024 at 1830 and had not urinated since gallagher was taken out. dr gonzales notified at 0100 and he ordered a bladder scan at 0500, bladder scan read 338ml of urine in his bladder. straight cath performed per dr rudd orders, 300ml of urine drained. patient tolerated well. dr gonzales notified of urine amount. no new orders at this time
[2024-10-05 05:51] LABS: Slide Review Slide Review Perform
[2024-10-05 06:08] LABS: Blood Urea Nitrogen 89 mg/dL (8-23)
[2024-10-05 06:26] LABS: Glucose Point of Care 142 mg/dL (70-110)
[2024-10-05] MEDS: budesonide 0.5 mg/2 mL Neb 0.25 MG INHALATION ×2 (07:21→21:05)
[2024-10-05] MEDS: tamsulosin 0.4 mg Capsule PO (09:02)
[2024-10-05] MEDS: guaiFENesin 600 mg Tablet 1200 MG PO ×2 (09:02→17:59)
[2024-10-05] MEDS: sodium bicarbonate 650 mg Tablet PO (09:02)
[2024-10-05] MEDS: amiodarone 200 mg Tablet PO (09:03)
[2024-10-05] MEDS: aspirin 81 mg EC Tablet PO (09:03)
[2024-10-05] MEDS: sodium polystyrene sulfonate 15 gm/60 mL Btl PO (09:03)
[2024-10-05] MEDS: doxycycline 100 mg Tablet PO ×2 (09:03→17:59)
[2024-10-05] MEDS: sennosides-docusate Tablet 1 TAB PO (09:04)
[2024-10-05] MEDS: methylPREDNISolone sod succ 40 mg/mL INJ 20 MG IVP ×3 (09:04→20:46)
[2024-10-05] MEDS: metoprolol tartrate 50 mg Tablet 25 MG PO ×2 (09:04→17:59)
[2024-10-05] MEDS: amlodipine 5 mg Tablet PO ×2 (09:04→13:06)
--- NOTE | 2024-10-05 10:20 | PC.SOCIAL ---
IMM Updated Updated pt on IMM. No questions voiced. Provided pt a copy. Initialed, dated, & timed a copy & placed in chart.
[2024-10-05] MEDS: finasteride 5 mg Tablet PO (10:30)
[2024-10-05 10:42] LABS: Glucose Point of Care 144 mg/dL (70-110)
--- NOTE | 2024-10-05 10:56 | ECG_ITS ---
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
--- NOTE | 2024-10-05 12:00 | P.PN_ITS ---
Subjective 2 Subjective: Feels slightly better, but still gets dyspneic with exertion. Coughing. Chest still feels congested. Vitals/I&O/Wt Last Vital Signs Temp 97.6 F 10/05/24 07:39 Pulse 81 10/05/24 07:39 Resp 16 10/05/24 07:39 BP 178/82 10/05/24 07:39 Pulse Ox 96 10/05/24 07:39 O2 Del Method Nasal Cannula 10/05/24 07:39 O2 Flow Rate 2 10/05/24 08:00 10/04/24 10/05/24 10/05/24 22:59 06:59 14:59 Intake Total 240 / 480 480 / 960 240 / 240 Output Total 450 / 450 1350 / 1800 Balance -210 / 30 -870 / -840 240 / 240 Weight last 48 hrs Weight 64.728 kg Weight 63.049 kg Physical Exam 2 Narrative: Severely hard of hearing. Const: COMMON NORMALS: patient oriented x3 and alert GENERAL APPEARANCE: c ooperative ORIENTATION/CONSCIOUSNESS: Yes awake HENMT: COMMON NORMALS: oropharynx normal Neck/C-Spine: COMMON NORMALS: no JVD Resp: COMMON NORMALS: normal respiratory effort and clear to auscultation bilaterally AUSCULTATION: clear to auscultation bilaterally, rhonchi, no wheezes and other (Improvement in rhonchi) Cardio: COMMON NORMALS: no JVD, regular rhythm, S1 normal heart sound present, S2 normal heart sound present and No murmurs present (Cardio) RHYTHM: regular rhythm HEART SOUNDS: S1 normal heart sound present and S2 normal heart sound present GI: COMMON NORMALS: Normal to inspection, nondistended, normoactive bowel sounds present, Soft to palpation and non-tender PALPATION: Yes Soft to palpation Extremity: COMMON NORMALS: no joint enlargement and no pedal edema Neuro: COMMON NORMALS: patient oriented x3 and moves all extremities S ENSORIUM/ORIENTATION: Yes alert Skin: COMMON NORMALS: no rashes or lesions noted GENERAL SKIN EXAM: no rashes or lesions noted Urinary Catheter Management: Sheikh: Cath Placed During This Visit: yes Reason for Continuing Indwelling Catheter: Acute Urinary Retention or Obstruction Urinary Catheter Date of Insertion: 10/01/24 Urinary Catheter Time of Insertion: 22:19 Data 10/05/24 04:34 10/05/24 04:34 A&P Assessment and plan (1) Hypoxia: Hypoxia with some improvement, oxygen requirement down to 2 L by nasal cannula. He still feeling some congested. Gets easily dyspneic with exertion. On review of CBC leukocytosis up to 17,000, although in part may be secondary to corticosteroids. There was a sample for sputum culture yesterday, but on review today still says uncollected. On assessment by speech therapy today, he is noted to have some wet sounding cough, and after test also was pointing to his chest stating pressure . EKG was obtained, reviewed, sinus rhythm. Without evidence of ischemia. Question of possible aspiration, possibly with all consistencies. Weak/ineffective cough. Per discussion with speech therapist, modified barium swallow test is requested, and for now he is made NPO. I have reached out to family listed on the chart, but calling his son the call is being disconnected, there is no answer on the phone number for any other family member and no voicemail. With significant chest congestive changes with secretions, having difficult time bringing them up. Respiratory apparatus quite weak. Cont chest vest. Continue pulmonary toilet. Continue Mucinex. Continue IV steroid at current time, on review of CBC noted rise of leukocytosis likely secondary to steroid. Afebrile. Does have hypertension. Decrease Solu- Medrol dose down to 20 mg. Continue to monitor for risk of hyperglycemia, hypertension, encephalopathy, gastritis. Blood pressure noted elevated 178/82. Increase amlodipine to 10 mg. Continue cefepime, doxycycline. Monitor for risk of encephalopathy. He is providing sputum culture. Follow-up resolved. Reviewed CMP. Minimal transaminitis, repeat CMP. For now continue cefepime for possible secondary bacterial infection, COPD exacerbation. Sputum culture if able to provide. Acute on chronic respiratory failure with increased oxygen requirement, initially up to 5 L by nasal cannula, with dyspnea, diminished air entry, wheezing, with exacerbation of COPD secondary to RSV infection. Possible secondary bacterial infection. Sputum culture if able to provide. (2) Acute kidney injury superimposed on CKD: Some fluctuation, slight worsening of renal function today, creatinine up to 4 on review, BUN up to 89. Possibly some uremia secondary to corticosteroid, although he has been eating and due to bronchial inflammation. Will try to taper down corticosteroids today. Reassess renal function. Additionally with hyperkalemia potassium 5.4. Requested additional dose of Kayexalate. Follow-up chemistry. Low potassium diet. With urine retention/bladder outlet obstruction, continue Sheikh. Tamsulosin, finasteride. Follow-up with urology in office, for reassessment and voiding trial. Reviewed CK, noted mild rhabdomyolysis, 1182. Hold Lasix for now. Repeat CK reviewed. (3) RSV infection: Patient hypoxic, again requiring liters of oxygen. Continue treatment of COPD exacerbation, clearing secretions. Continue isolation, breathing treatments, supportive care. Continue oxygen support, wean down as tolerating. For now continue cefepime for possible secondary bacterial infection, COPD exacerbation. Sputum culture if able to provide. Monitor for risk of encephalopathy, cytopenia, C. difficile with cefepime. On presentation RSV positive with acute on chronic respiratory failure, requiring 5 L nasal current oxygen, normally on 3 for COPD. With acute exacerbation of COPD. Maintain isolation. Treat with IV steroid, breathing treatments. With possible secondary bacterial infection with leukocytosis 22.12, right hilar very subtle area of increased attenuation, possible secondary bacterial pneumonia. Will need follow-up. Zofran as needed if nausea. (4) Urine retention: Sheikh catheter placed for acute urinary retention, urinary bladder obstruction, KEEGAN. Continue finasteride. Add tamsulosin. Reviewed UA. (5) Hyperkalemia: Reviewed potassium, hyperkalemia improved potassium down to 5. Repeat chemistry. As above. Follow-up chemistry. Received explained. Continue low potassium diet. (6) Transaminitis: Reviewed CMP, resolving. Repeat CMP Continue to show gradual improvement. With mild rhabdo on presentation, repeat CK. Suspect secondary to acute viral illness. Reviewed CK, hold diuretic for now with mild rhabdo. Plan Right hilar abnormality: Very subtle area of increased attenuation in the RIGHT hilar region measuring 12 mm. This opacification is not been present on prior studies. Consider follow-up chest CT with IV contrast. HTN: Increase dose of amlodipine for worsening blood pressure with. Continue metoprolol. Physical deconditioning: Pending PT reassessment, consideration of skilled rehabilitation after discharge versus continued long-term care with restorative therapy. Discussed with telehealth case manager, PT. CKD: Reassess chemistry. Continue bicarb. Anemia: Mild gradual worsening of hemoglobin, today down to 9.1. Repeat CBC. with history of protracted/recurrent anemia, hemorrhagic shock, SCD alone for DVT prophylaxis. CHF: Not in exacerbation Hearing loss: Very hard of hearing, no hearing aids. HTN: Monitor blood pressures A-fib: Continue amiodarone, not on anticoagulation due to chronic/recurrent significant anemia, possible GI bleed. History of hemorrhagic shock. Mild gradual worsening of hemoglobin, today down to 9.1. PDMP PDMP Reviewed: Not Reviewed Attestations 2 Medical Necessity Statement*: Continue admission for assessment management of severe COPD exacerbation, possible microaspiration, RSV infection, KEEGAN. and High MDM includes amount and/or complexity of data reviewed/ordered [ resulted lab(s)/test(s), ordered lab(s)/test(s) and other healthcare professional discussion] and described risk of complication, morbidity or mortality of management as documented Diagnoses Hypoxia R09.02 Acute kidney injury superimposed on CKD N17.9; N18.9 RSV infection B33.8 Urine retention R33.9 Hyperkalemia E87.5 Transaminitis R74.01
[2024-10-05] MEDS: cefepime 1,000 mg SDV 1000 MG IVP (13:07)
[2024-10-05 16:29] LABS: Glucose Point of Care 155 mg/dL (70-110)
[2024-10-05 20:37] LABS: Glucose Point of Care 139 mg/dL (70-110)
[2024-10-05] MEDS: hyDRALAzine 20 mg/mL INJ 1 mL 10 MG IVP (23:54)
[2024-10-06] VITALS (12 sets, daily range): BP systolic 113–163; BP diastolic 64–87; PULSE 63–78; RESP 14–18; TEMP 36.4–37; O2SAT 91–96
[2024-10-06] MEDS: methylPREDNISolone sod succ 40 mg/mL INJ 20 MG IVP ×3 (03:31→16:39)
[2024-10-06 04:09] LABS: Hematocrit 30.7 % (37-53); Mean Corpuscular HGB Conc 30.9 g/dL (30-55); Mean Corpuscular Hemoglobin 28.4 pg (27-33); Mean Corpuscular Volume 91.9 fl (82-101); Platelet Count 172 10^3/cmm (157-399); Red Blood Count 3.34 10^6/uL (3.85-5.65); Red Cell Distribution Width 20.2 % (12.1-15.1); White Blood Count 18.95 10^3/uL (3.29-11.43)
[2024-10-06 04:25] LABS: Alanine Aminotransferase 39 U/L (0-41); Albumin Level 3.2 g/dL (3.5-5.2); Alkaline Phosphatase 42 U/L (40-130); Anion Gap 19.6 (5-19); Aspartate Amino Transferase 15 U/L (0-40); Calcium 8.5 mg/dL (8.5-10.5); Carbon Dioxide 17 mmol/L (22-29); Chloride 108 mmol/L (98-107); Creatinine Clr Calc Pharmacy 13.1613; Globulin 2.2 g/dL (1.3-4.6); Glucose 116 mg/dL (65-115); Osmolality Calculated 319 mOsm/kg (285-295); Potassium 4.6 mmol/L (3.5-5.1); Sodium 140 mmol/L (136-145); Total Bilirubin 0.3 mg/dL (0.15-1.2); Total Protein 5.4 g/dL (6.6-8.7)
[2024-10-06 04:44] LABS: Absolute Segmented Neutrophil 16.3 10/cmm (1.6-7.1); Lymphocytes 2 %; Monocytes Absolute 0.8 10^3/cmm (0.1-0.6); Segmented Neutrophils 86 %; Slide Review Slide Review Perform; Total Cells Counted 100 (0-100)
[2024-10-06 04:45] LABS: Absolute Neutrophil 16.3 10^3/cmm (1.4-6.5); Anisocytosis Trace; Eosinophils 0 %; Lymphocytes Absolute 0.6 10^3/cmm (1.2-3.4); Platelet Estimate Normal (Normal)
[2024-10-06 04:54] LABS: Blood Urea Nitrogen 91 mg/dL (8-23)
[2024-10-06 06:27] LABS: Glucose Point of Care 116 mg/dL (70-110)
[2024-10-06] MEDS: budesonide 0.5 mg/2 mL Neb 0.25 MG INHALATION ×2 (08:02→21:36)
[2024-10-06] MEDS: ipratropium-albuterol 3 mL Neb INHALATION ×3 (08:02→21:36)
[2024-10-06] MEDS: amlodipine 5 mg Tablet 10 MG PO (09:59)
[2024-10-06] MEDS: amiodarone 200 mg Tablet PO (09:59)
[2024-10-06] MEDS: metoprolol tartrate 50 mg Tablet 25 MG PO ×2 (10:00→17:19)
[2024-10-06] MEDS: guaiFENesin 600 mg Tablet 1200 MG PO ×2 (10:00→17:19)
[2024-10-06] MEDS: sennosides-docusate Tablet 1 TAB PO (10:00)
[2024-10-06] MEDS: aspirin 81 mg EC Tablet PO (10:00)
[2024-10-06] MEDS: sodium bicarbonate 650 mg Tablet PO (10:00)
[2024-10-06] MEDS: doxycycline 100 mg Tablet PO ×2 (10:00→17:19)
[2024-10-06] MEDS: tamsulosin 0.4 mg Capsule PO (10:00)
[2024-10-06] MEDS: finasteride 5 mg Tablet PO (10:00)
[2024-10-06 11:24] LABS: Glucose Point of Care 114 mg/dL (70-110)
--- NOTE | 2024-10-06 13:38 | PC.SLP ---
Patient was laying in bed upon arrival. Patient took drink of water from bedside table while laying when he found out I was the speech therapist. Patient said he had no problems and then started coughing and stating I am going to throw up . Patient then burped. Therapist tried to ask patient questions and patient stated he wanted me to take my mask off. When I explained I could not the patient became very upset and told me to leave the room.
[2024-10-06] MEDS: cefepime 1,000 mg SDV 1000 MG IVP (13:51)
[2024-10-06 17:44] LABS: Glucose Point of Care 130 mg/dL (70-110)
--- NOTE | 2024-10-06 18:08 | PM.PN ---
Subjective Subjective: Patient states he feels 100% better than when he came in. He is very hard of hearing and just talks through any questions. He obviously cannot hear me. Says Boy I was hurtin when I was come in and and I am not kidding I wrote to him are you in pain and he says no He says he did not get to eat at all. Nurse reports that he is in n.p.o. status awaiting modified barium swallow which could not be done today. The speech therapist did not leave updated recommendations for diet Vitals/I&O/Wt Last Vital Signs Temp 97.5 F L 10/06/24 16:00 Pulse 68 10/06/24 16:00 Resp 17 10/06/24 16:00 BP 148/87 10/06/24 16:00 Pulse Ox 91 10/06/24 16:00 O2 Del Method Room Air 10/06/24 16:00 O2 Flow Rate 2 10/06/24 13:40 10/06/24 10/06/24 10/06/24 06:59 14:59 22:59 Output Total 750 / 1350 Balance -750 / -1110 Weight last 48 hrs Weight 64.002 kg Weight 64.728 kg Physical Exam Narrative: General well-developed well-nourished tall thin male with moist sounding cough he is not in acute distress. He is able to speak with a loud voice in full sentences CV regular rate and rhythm Lungs coarse breath sounds throughout with wheezes and good air movement Abdomen positive bowel sounds soft nontender Calves no tenderness pretibial edema Upper back with a dressing over skin tear dated 10/02/2024 Urinary Catheter Management: Sheikh: Cath Placed During This Visit: yes Reason for Continuing Indwelling Catheter: Acute Urinary Retention or Obstruction Urinary Catheter Date of Insertion: 10/01/24 Urinary Catheter Time of Insertion: 22:19 Data 10/06/24 03:48 10/06/24 03:48 A&P Assessment and plan (1) Hypoxia: White blood count continues to be elevated but likely due to steroids we have not achieved a sputum sample yet. Room air sat 91% 2 L sat 96% Suspected dysphagia. Will put him on a dysphagia low potassium diet. Modified barium swallow could not be performed over the weekend. He cannot be completely n.p.o. (2) Acute kidney injury superimposed on CKD: Some fluctuation, slight worsening of renal function today, creatinine up to 4 on review, BUN up to 89. Possibly some uremia secondary to corticosteroid, although he has been eating and due to bronchial inflammation. Will try to taper down corticosteroids today. Reassess renal function. Additionally with hyperkalemia potassium 5.4. Requested additional dose of Kayexalate. Follow-up chemistry. Low potassium diet. With urine retention/bladder outlet obstruction, continue Sheikh. Tamsulosin, finasteride. Follow-up with urology in office, for reassessment and voiding trial. Reviewed CK, noted mild rhabdomyolysis, 1182. Hold Lasix for now. Repeat CK reviewed. (3) RSV infection: Improved wean steroids ambulate and check for home O2 need (4) Urine retention: Sheikh catheter placed for acute urinary retention, urinary bladder obstruction, KEEGAN. Continue finasteride. Changed to Cardura for better blood pressure lowering effect reviewed UA. (5) Hyperkalemia: Reviewed potassium, hyperkalemia improved potassium down to 5. Repeat chemistry. As above. Follow-up chemistry. Received explained. Continue low potassium diet. (6) Transaminitis: Reviewed CMP, resolving. Repeat CMP Continue to show gradual improvement. With mild rhabdo on presentation, repeat CK. Suspect secondary to acute viral illness. Reviewed CK, hold diuretic for now with mild rhabdo. Plan Right hilar abnormality: Very subtle area of increased attenuation in the RIGHT hilar region measuring 12 mm. This opacification is not been present on prior studies. Consider follow-up chest CT with IV contrast. HTN: Increase dose of amlodipine for worsening blood pressure with. Continue metoprolol. Physical deconditioning: Pending PT reassessment, consideration of skilled rehabilitation after discharge versus continued long-term care with restorative therapy. Discussed with field nurse case manager, PT. CKD: Reassess chemistry. Continue bicarb. Anemia: Mild gradual worsening of hemoglobin, today down to 9.1. Repeat CBC. with history of protracted/recurrent anemia, hemorrhagic shock, SCD alone for DVT prophylaxis. CHF: Not in exacerbation Hearing loss: Very hard of hearing, no hearing aids. HTN: Monitor blood pressures A-fib: Continue amiodarone, not on anticoagulation due to chronic/recurrent significant anemia, possible GI bleed. History of hemorrhagic shock. Mild gradual worsening of hemoglobin, today down to 9.1. PDMP PDMP Reviewed: Not Reviewed Attestations Medical Necessity Statement*: Patient remains in the hospital for monitoring respiratory status and needs modified barium swallow on Tuesday Coding Level of Care Code 38357 Diagnoses Hypoxia R09.02 Acute kidney injury superimposed on CKD N17.9; N18.9 RSV infection B33.8 Urine retention R33.9 Hyperkalemia E87.5 Transaminitis R74.01 Time Spent (min) 55
[2024-10-06] MEDS: hyDRALAzine 25 mg Tablet PO (20:37)
[2024-10-06] MEDS: doxazosin 4 mg Tablet PO (20:37)
[2024-10-06 20:57] LABS: Glucose Point of Care 147 mg/dL (70-110)
[2024-10-07] VITALS (14 sets, daily range): BP systolic 107–124; BP diastolic 62–71; PULSE 69–85; RESP 14–22; TEMP 36.3–37.2; O2SAT 94–97
[2024-10-07] MEDS: ipratropium-albuterol 3 mL Neb INHALATION ×4 (03:01→20:59)
[2024-10-07 05:44] LABS: Basophils # 0.1 10^3/uL (0.0-0.1); Basophils % 0.5 %; Hematocrit 30.6 % (37-53); Lymphocytes # 0.6 10^3/uL (0.8-4.8); Lymphocytes % 2.9 %; Mean Corpuscular HGB Conc 30.4 g/dL (30-55); Mean Corpuscular Hemoglobin 27.4 pg (27-33); Mean Platelet Volume 11.4 fL (7.4-10.4); Monocytes % 5.3 %; Neutrophils # 15.84 10^3/uL (1.8-7.7); Nucleated Red Blood Cells % 0.2 %; Platelet Count 179 10^3/cmm (157-399); Red Cell Distribution Width 20.1 % (12.1-15.1); White Blood Count 19.25 10^3/uL (3.29-11.43)
[2024-10-07 06:31] LABS: Glucose Point of Care 141 mg/dL (70-110)
[2024-10-07 06:35] LABS: Neutrophils % 91.3 %
[2024-10-07] MEDS: guaiFENesin 600 mg Tablet 1200 MG PO ×2 (08:02→18:06)
[2024-10-07] MEDS: sennosides-docusate Tablet 1 TAB PO (08:02)
[2024-10-07] MEDS: hyDRALAzine 25 mg Tablet PO ×2 (08:02→20:28)
[2024-10-07] MEDS: amiodarone 200 mg Tablet PO (08:02)
[2024-10-07] MEDS: finasteride 5 mg Tablet PO (08:02)
[2024-10-07] MEDS: doxycycline 100 mg Tablet PO ×2 (08:02→18:06)
[2024-10-07] MEDS: aspirin 81 mg EC Tablet PO (08:02)
[2024-10-07] MEDS: metoprolol tartrate 50 mg Tablet 25 MG PO ×2 (08:02→18:06)
[2024-10-07] MEDS: sodium bicarbonate 650 mg Tablet PO ×2 (08:02→20:28)
[2024-10-07] MEDS: amlodipine 5 mg Tablet 10 MG PO (08:02)
[2024-10-07] MEDS: budesonide 0.5 mg/2 mL Neb 0.25 MG INHALATION ×2 (08:15→20:59)
[2024-10-07 11:46] LABS: Glucose Point of Care 140 mg/dL (70-110)
[2024-10-07] MEDS: cefepime 1,000 mg SDV 1000 MG IVP (12:21)
[2024-10-07 15:49] LABS: Basophils # 0.1 10^3/uL (0.0-0.1); Basophils % 0.5 %; Hematocrit 32.7 % (37-53); Lymphocytes # 0.4 10^3/uL (0.8-4.8); Lymphocytes % 1.7 %; Mean Corpuscular Hemoglobin 27.8 pg (27-33); Mean Corpuscular Volume 92.6 fl (82-101); Mean Platelet Volume 11.3 fL (7.4-10.4); Monocytes # 1.1 10^3/uL (0.2-0.9); Monocytes % 4.6 %; Neutrophils # 20.62 10^3/uL (1.8-7.7); Nucleated Red Blood Cells # 0.1 /100WBC; Nucleated Red Blood Cells % 0.2 %; Platelet Count 191 10^3/cmm (157-399); Positive C 1; Positive M 1; Red Blood Count 3.53 10^6/uL (3.85-5.65); Red Cell Distribution Width 20.2 % (12.1-15.1); White Blood Count 24.68 10^3/uL (3.29-11.43)
[2024-10-07 15:52] LABS: Neutrophils % 92.2 %
[2024-10-07 16:03] LABS: Anion Gap 20.3 (5-19); Calcium 8.4 mg/dL (8.5-10.5); Carbon Dioxide 16 mmol/L (22-29); Chloride 107 mmol/L (98-107); Glucose 145 mg/dL (65-115); Osmolality Calculated 323 mOsm/kg (285-295); Potassium 5.3 mmol/L (3.5-5.1); Sodium 138 mmol/L (136-145)
[2024-10-07 16:35] LABS: Creatinine Clr Calc Pharmacy 12.4298
[2024-10-07 16:37] LABS: Blood Urea Nitrogen 109 mg/dL (8-23)
--- NOTE | 2024-10-07 17:35 | PM.PN ---
Subjective Subjective: Patient is sleeping tachypneic with coarse breath sounds. Appears fatigued Started him on dysphagia diet yesterday white count worse BUN worse I wrote on a clipboard with paper do you choke patient says yes it is coughing with even small sips of water I wrote I think you are aspirating into your lungs to you agree patient says yes I wrote hard to eat safely if food is going into your lungs would you want a feeding tube for nutrition if you cannot swallow he said no I then put would you want a ventilator or CPR if you cannot breathe he says yes He then asked me would it be working with me or against me I put I think you are needing a feeding tube you are choking on food and drink and cannot breathe. He says yes I put will have swallow x-rays tomorrow IV fluids today and antibiotics I then reasked if you are dying do you want a breathing machine and CPR he now says no I then wrote if you cannot breathe no breathing ventilator just make you comfortable he says do what you got a do to get it over with I wrote to avoid that you might need a feeding tube he says okay I asked him if he wanted lights off he says yes I wrote tomorrow different doctor he says okay Please note any part where I said I asked I wrote on paper he is not able to hear me despite yelling loudly in the room this was confirmed yesterday Vitals/I&O/Wt Last Vital Signs Temp 97.4 F L 10/07/24 12:00 Pulse 79 10/07/24 14:00 Resp 20 H 10/07/24 13:20 BP 107/63 10/07/24 12:00 Pulse Ox 94 10/07/24 13:20 O2 Del Method Nasal Cannula 10/07/24 13:20 O2 Flow Rate 2 10/07/24 13:20 10/07/24 10/07/24 10/07/24 06:59 14:59 22:59 Intake Total 480 / 480 Output Total 500 / 1350 Balance -500 / -1350 480 / 480 Weight last 48 hrs Weight 63.458 kg Weight 64.002 kg Physical Exam Narrative: General well-developed well-nourished tall thin male with moist sounding cough he is not in acute distress but tachypneic. He is more short of breath today than yesterday. CV regular rate and rhythm Lungs coarse breath sounds throughout with wheezes and air movement left lung better than right Abdomen positive bowel sounds soft nontender Calves no tenderness pretibial edema Patient is able to read what I write and communicate yes and no Urinary Catheter Management: Sheikh: Cath Placed During This Visit: yes Reason for Continuing Indwelling Catheter: Acute Urinary Retention or Obstruction Urinary Catheter Date of Insertion: 10/01/24 Urinary Catheter Time of Insertion: 22:19 Data 10/07/24 15:41 10/07/24 15:41 A&P Assessment and plan (1) Hypoxia: White blood count continues to be elevated but likely due to steroids we have not achieved a sputum sample yet. Room air sat 91% 2 L sat 96% Suspected dysphagia. Will put him on a dysphagia low potassium diet. Modified barium swallow could not be performed over the weekend. He cannot be completely n.p.o. (2) Acute kidney injury superimposed on CKD: Some fluctuation, slight worsening of renal function today, creatinine up to 4 on review, BUN up to 89. Possibly some uremia secondary to corticosteroid, although he has been eating and due to bronchial inflammation. Will try to taper down corticosteroids today. Reassess renal function. Additionally with hyperkalemia potassium 5.4. Requested additional dose of Kayexalate. Follow-up chemistry. Low potassium diet. With urine retention/bladder outlet obstruction, continue Sheikh. Tamsulosin, finasteride. Follow-up with urology in office, for reassessment and voiding trial. Reviewed CK, noted mild rhabdomyolysis, 1182. Hold Lasix for now. Repeat CK reviewed. (3) RSV infection: Improved wean steroids ambulate and check for home O2 need (4) Urine retention: Sheikh catheter placed for acute urinary retention, urinary bladder obstruction, KEEGAN. Continue finasteride. Changed to Cardura for better blood pressure lowering effect reviewed UA. (5) Hyperkalemia: Reviewed potassium, hyperkalemia improved potassium down to 5. Repeat chemistry. As above. Follow-up chemistry. Received explained. Continue low potassium diet. (6) Transaminitis: Reviewed CMP, resolving. Repeat CMP Continue to show gradual improvement. With mild rhabdo on presentation, repeat CK. Suspect secondary to acute viral illness. Reviewed CK, hold diuretic for now with mild rhabdo. Plan Right hilar abnormality: Very subtle area of increased attenuation in the RIGHT hilar region measuring 12 mm. This opacification is not been present on prior studies. Consider follow-up chest CT with IV contrast. HTN: Increase dose of amlodipine for worsening blood pressure with. Continue metoprolol. Physical deconditioning: Pending PT reassessment, consideration of skilled rehabilitation after discharge versus continued long-term care with restorative therapy. Discussed with case management associate, PT. CKD: Reassess chemistry. Continue bicarb. Anemia: Mild gradual worsening of hemoglobin, today down to 9.1. Repeat CBC. with history of protracted/recurrent anemia, hemorrhagic shock, SCD alone for DVT prophylaxis. CHF: Not in exacerbation Hearing loss: Very hard of hearing, no hearing aids. HTN: Monitor blood pressures A-fib: Continue amiodarone, not on anticoagulation due to chronic/recurrent significant anemia, possible GI bleed. History of hemorrhagic shock. Mild gradual worsening of hemoglobin, today down to 9.1. PDMP PDMP Reviewed: Not Reviewed Coding Level of Care Code Acute Code for [facility] Fwd Diagnoses Hypoxia R09.02 Acute kidney injury superimposed on CKD N17.9; N18.9 RSV infection B33.8 Urine retention R33.9 Hyperkalemia E87.5 Transaminitis R74.01
[2024-10-07] MEDS: lactated ringers 1,000 ML 999 ML IV (18:02)
[2024-10-07] MEDS: dexamethasone 4 mg/mL INJ PO (18:06)
[2024-10-07 18:16] LABS: Glucose Point of Care 155 mg/dL (70-110)
[2024-10-07] MEDS: doxazosin 4 mg Tablet PO (20:28)
[2024-10-07 20:48] LABS: Glucose Point of Care 170 mg/dL (70-110)
[2024-10-08] VITALS (12 sets, daily range): BP systolic 88–118; BP diastolic 47–68; PULSE 64–94; RESP 16–22; TEMP 36.3–36.4; O2SAT 95–99
[2024-10-08] MEDS: lactated ringers 1,000 ML 75 ML IV (01:36)
[2024-10-08] MEDS: ipratropium-albuterol 3 mL Neb INHALATION ×4 (03:23→21:56)
[2024-10-08 06:25] LABS: Basophils # 0.1 10^3/uL (0.0-0.1); Basophils % 0.5 %; Hematocrit 29.7 % (37-53); Lymphocytes # 0.4 10^3/uL (0.8-4.8); Lymphocytes % 1.7 %; Mean Corpuscular Hemoglobin 27.9 pg (27-33); Mean Corpuscular Volume 93.1 fl (82-101); Mean Platelet Volume 11.2 fL (7.4-10.4); Monocytes # 0.8 10^3/uL (0.2-0.9); Monocytes % 3.9 %; Neutrophils # 17.08 10^3/uL (1.8-7.7); Nucleated Red Blood Cells % 0.1 %; Platelet Count 155 10^3/cmm (157-399); Red Blood Count 3.19 10^6/uL (3.85-5.65); Red Cell Distribution Width 20.4 % (12.1-15.1); White Blood Count 20.57 10^3/uL (3.29-11.43)
[2024-10-08 06:40] LABS: Alanine Aminotransferase 31 U/L (0-41); Albumin Level 2.9 g/dL (3.5-5.2); Alkaline Phosphatase 39 U/L (40-130); Aspartate Amino Transferase 13 U/L (0-40); Calcium 8.2 mg/dL (8.5-10.5); Carbon Dioxide 15 mmol/L (22-29); Chloride 107 mmol/L (98-107); Glucose 122 mg/dL (65-115); Osmolality Calculated 324 mOsm/kg (285-295); Sodium 139 mmol/L (136-145); Total Bilirubin 0.2 mg/dL (0.15-1.2); Total Protein 4.9 g/dL (6.6-8.7)
[2024-10-08 06:44] LABS: Slide Review Slide Review Perform
[2024-10-08 06:45] LABS: Anion Gap 22.3 (5-19); Blood Urea Nitrogen 111 mg/dL (8-23); Potassium 5.3 mmol/L (3.5-5.1)
[2024-10-08 06:47] LABS: Glucose Point of Care 134 mg/dL (70-110)
[2024-10-08] MEDS: budesonide 0.5 mg/2 mL Neb 0.25 MG INHALATION ×2 (07:48→21:56)
[2024-10-08] MEDS: lanolin oint 7 gm 1 APPLIC TOPICAL (09:46)
[2024-10-08] MEDS: aspirin 81 mg EC Tablet PO (10:50)
[2024-10-08] MEDS: guaiFENesin 600 mg Tablet 1200 MG PO ×2 (10:50→17:24)
[2024-10-08] MEDS: hyDRALAzine 25 mg Tablet PO (10:51)
[2024-10-08] MEDS: amiodarone 200 mg Tablet PO (10:51)
[2024-10-08] MEDS: metoprolol tartrate 50 mg Tablet 25 MG PO (10:51)
[2024-10-08] MEDS: sennosides-docusate Tablet 1 TAB PO (10:51)
[2024-10-08] MEDS: amlodipine 5 mg Tablet PO (10:51)
[2024-10-08] MEDS: sodium bicarbonate 650 mg Tablet PO ×3 (10:51→21:23)
[2024-10-08] MEDS: finasteride 5 mg Tablet PO (10:52)
[2024-10-08] MEDS: doxycycline 100 mg Tablet PO (10:52)
[2024-10-08 11:05] LABS: Glucose Point of Care 142 mg/dL (70-110)
--- NOTE | 2024-10-08 11:55 | FL_ITS ---
WS: [id number] Exam: FL barium swallow modifd [id number] Date/Time of Exam: 10/08/2024 10:11 AM Reason For Exam: Oropharyngeal dysphagia Fluoroscopy time: 5min [id number] minutes # of spot films: 0 Modified barium swallow test was performed in conjunction with the speech therapy service. Oropharyngeal phase of swallowing was grossly normal. No significant penetration or aspiration was identified. The patient tolerated thin liquid and pudding consistency barium mixture foodstuffs without difficulty. The patient ingested a barium tablet with liquid without difficulty however the tablet was retained in the lower esophagus. The tablet could not be propelled into the stomach with either pudding or thin liquid. Underlying narrowing of the distal esophagus is not ruled out. FL/FL barium swallow modifd [id number] IMPRESSION: 1. Barium tablet was retained in the distal esophagus. Underlying stricture or mass not excluded. A conventional barium swallow test is recommended for more d etailed evaluation of this area. 2. No aspiration or penetration was identified otherwise. See above discussion. A separate report and recommendations will follow from the speech therapy servi ce.
--- NOTE | 2024-10-08 12:05 | CTR_ITS ---
PROCEDURE INFORMATION: Exam: CT Chest Without Contrast; Diagnostic Exam date and time: 10/08/2024 3:05 PM Age: 89 years old Clinical indication: Prior surgery; Surgery date: 6+ months; Surgery type: Heart stents; Shortness of breath, cough, rsv+, ; additional info: SOB TECHNIQUE: Imaging protocol: Diagnostic computed tomography of the chest without contrast. Radiation optimization: All CT scans at this facility use at least one of these dose optimization techniques: automated exposure control; mA and/or kV adjustment per patient size (includes targeted exams where dose is matched to clinical indication); or iterative reconstruction. COMPARISON: CT chest wo con [id number] 10/21/2023 8:14 AM RADIATION DOSE METRICS: Total DLP (mGy-cm): 301.22 FINDINGS: Limitations: Motion artifact does moderately limit the sensitivity of this examination. Trachea: Question tracheomalacia. Airways are patent. Lungs: Upper lobe and apical dominant paraseptal emphysema. Moderate diffuse centrilobular emphysema. Multiple clusters of tree-in-bud/centrilobular nodules in the bilateral lower lobes, worse on the right. Bilateral bronchial wall thickening, worse in the lower lobes. Emphysematous bulla suggested in the right lower lobe, however partially obscured by motion. Pleural spaces: There are no pleural effusions present. There is no evidence of pneumothorax. Heart: Calcifications of the aortic valve annulus. No cardiomegaly. No pericardial thickening or effusion. Coronary arteries: There is severe atherosclerotic calcification of the coronary arteries. Mediastinal space: Scattered calcified granulomas throughout the mediastinum are benign. Lymph nodes: There is no evidence of lymphadenopathy. Vasculature: Mild diffuse calcific atherosclerosis of the aorta. Aorta is normal in course and caliber. The pulmonary arteries are normal in course and caliber. Diaphragm: Moderate hiatal hernia. Kidneys: Partially seen left renal cyst. Consider nonemergent ultrasound follow-up. Bones/joints: Severe osteoarthritis of the right glenohumeral joint. Mild multilevel degenerative changes of the spine. No acute skeletal abnormality or aggressive osseous lesion. Soft tissues: No acute soft tissue findings. Other findings: Right hilar calcified granulomas, benign. No acute findings in the included upper abdominal organs. CT/CT chest wo con [id number] IMPRESSION: 1. Bilateral lower lobe bronchopneumonia/bronchiolitis, worse on the right. 2. Moderate to severe bronchitis. 3. Emphysema and likely COPD. 4. Incidental findings as above. COMMENTS: Consistent with the [employer]'s Incidental Findings Committee white paper (J Am Chacho Radiol 2018): Any incidental renal lesion less than 1 cm or classified as too small to characterize, or any incidental cystic renal lesion characterized as simple-appearing, is likely benign. No follow-up imaging is recommended for these lesions per consensus recommendations based on imaging criteria.
--- NOTE | 2024-10-08 12:05 | FL_ITS ---
WS: [id number] Exam: FL barium swallow [id number] Date/Time of Exam: 10/08/2024 3:42 PM Reason For Exam: swallow series for esophageal stricture/mass Fluoroscopy time: 2min [id number] minutes # of spot films: 0 Oral pharyngeal phase of swallowing was grossly normal. Moderate amount of spasm noted throughout the esophagus. No intrinsic esophageal mass or stricture was identified. A small hiatal hernia is noted. FL/FL barium swallow [id number] IMPRESSION: 1. Presbyesophagus. No intrinsic esophageal mass or stricture was identified. 2. Small hiatal hernia noted.
[2024-10-08] MEDS: meropenem 500 mg SDV IVP ×2 (12:37→23:31)
[2024-10-08 12:50] LABS: NT Pro B Type Natriuretic Pept 513 pg/mL (0-450); Procalcitonin 0.28 ng/mL (0-0.5)
--- NOTE | 2024-10-08 13:03 | PC.SOCIAL ---
IMM Update pg 2 of IMM Updated and reviewed w/ patient. Copy provided and copy dated, initialed and placed in chart.
[2024-10-08 14:31] LABS: Lactic Sepsis W/Reflex 1.2 mmol/L (0.5-2.2)
--- NOTE | 2024-10-08 14:42 | P.PN_ITS ---
Subjective 2 Subjective: Patient was seen this morning, he is sitting up in bed, audible wheezing and crackles, he is alert to person, to place, not to time he is very hard of hearing, I was able to communicate with him using pen/paper/clipboard, he denies any shortness of breath, denies any chest pain, denies nausea, denies any vomiting, no globus sensation, denies choking but does complain of coughing he has a history of tracheostomy but details are unclear, he points to it he is tells me that it was done in [place], I also had a discussion with him about his goals of care, we discussed PEG tube placement, he tells me if it would improve his quality of life he does not want it, but he would be willing to try, Vitals/I&O/Wt Last Vital Signs Temp 97.6 F 10/08/24 11:19 Pulse 74 10/08/24 13:36 Resp 22 H 10/08/24 13:36 BP 88/61 10/08/24 11:19 Pulse Ox 97 10/08/24 13:36 O2 Del Method Nasal Cannula 10/08/24 13:36 O2 Flow Rate 3 10/08/24 13:36 10/07/24 10/08/24 10/08/24 22:59 06:59 14:59 Intake Total 120 / 600 1000.0 / 1600.0 Output Total 700 / 700 200 / 200 Balance 120 / 600 300.0 / 900.0 -200 / -200 Weight last 48 hrs Weight 63.911 kg Weight 63.458 kg Physical Exam 2 Const: COMMON NORMALS: no acute distress ORIENTATION/CONSCIOUSNESS: Yes awake, Yes oriented to person and Yes oriented to place Neck/C-Spine: COMMON NORMALS: no JVD Resp: COMMON NORMALS: normal respiratory effort, No retractions and No use of accessory muscles AUSCULTATION: crackles and wheezes Cardio: COMMON NORMALS: no JVD, regular rate, regular rhythm, S1 normal heart sound present and S2 normal heart sound present RATE: regular rate RHYTHM: regular rhythm HEART SOUNDS: S1 normal heart sound present and S2 normal heart sound present GI: COMMON NORMALS: Normal to inspection, nondistended, normoactive bowel sounds present and non-tender Extremity: COMMON NORMALS: no pedal edema Neuro: SENSORIUM/ORIENTATION: Yes oriented to person and Yes oriented to place Psych: COMMON NORMALS: mental status grossly normal Urinary Catheter Management: Sheikh: Cath Placed During This Visit: yes, but has since been removed by the nurse Reason for Continuing Indwelling Catheter: Decision to DC Catheter Urinary Catheter Date of Insertion: 10/01/24 Urinary Catheter Time of Insertion: 22:19 Date Urinary Catheter Removed: 10/07/24 Time Urinary Catheter Discontinued: 15:30 Data 10/09/24 05:14 10/09/24 05:14 A&P Assessment and plan (1) Hypoxia: (2) Acute kidney injury superimposed on CKD: (3) RSV infection: (4) Urine retention: (5) Hyperkalemia: (6) Transaminitis: (7) Aspiration pneumonia: Plan Acute hypoxic respiratory failure secondary to aspiration pneumonia -Monitor respiratory status closely -Keep n.p.o. -Start IV meropenem -CT chest ordered -Patient looks euvolemic hold off on diuresis KEEGAN on CKD, monitor -IV fluids -Sodium bicarb Uremia, monitor, start IV fluids Metabolic acidosis, -Likely secondary renal failure -Sodium bicarb tablets Urinary retention, Sheikh catheter in place Right hilar abnormality: Monitor HTN: Hold off on blood pressure medications as patient's blood pressures have been soft Physical deconditioning: PT OT Anemia: Hemoglobin 8.9, monitor CHF: Not in exacerbation monitor Hearing loss: Very hard of hearing, no hearing aids. HTN: Monitor blood pressures A-fib: Continue amiodarone, not on anticoagulation due to chronic/recurrent significant anemia, possible GI bleed. History of hemorrhagic shock. Plan for today modified barium swallow, speech therapy eval IV fluids CT chest IV meropenem PDMP PDMP Reviewed: Not Reviewed Attestations 2 Medical Necessity Statement*: Patient requires hospitalization for acute hypoxic respiratory failure secondary to pneumonia, aspiration, uremia, acute renal failure Diagnoses Hypoxia R09.02 Acute kidney injury superimposed on CKD N17.9; N18.9 RSV infection B33.8 Urine retention R33.9 Hyperkalemia E87.5 Transaminitis R74.01 Aspiration pneumonia J69.0
[2024-10-08] MEDS: sodium chloride 0.9% 1,000 ML 75 ML IV (15:55)
[2024-10-08 16:33] LABS: Glucose Point of Care 118 mg/dL (70-110)
[2024-10-08 20:42] LABS: Glucose Point of Care 100 mg/dL (70-110)
[2024-10-09] VITALS (17 sets, daily range): BP systolic 103–132; BP diastolic 52–71; PULSE 70–88; RESP 16–22; TEMP 36.3–36.6; O2SAT 93–96
[2024-10-09] MEDS: ipratropium-albuterol 3 mL Neb INHALATION ×4 (02:45→21:11)
[2024-10-09] MEDS: sodium chloride 0.9% 1,000 ML 75 ML IV ×2 (03:24→15:24)
[2024-10-09 05:41] LABS: Basophils # 0.2 10^3/uL (0.0-0.1); Basophils % 0.7 %; Eosinophils # 0.3 10^3/uL (0.0-0.8); Eosinophils % 1.3 %; Hematocrit 29.5 % (37-53); Lymphocytes # 0.7 10^3/uL (0.8-4.8); Mean Corpuscular HGB Conc 30.5 g/dL (30-55); Mean Corpuscular Hemoglobin 28.7 pg (27-33); Mean Corpuscular Volume 93.9 fl (82-101); Mean Platelet Volume 11.8 fL (7.4-10.4); Monocytes # 1.5 10^3/uL (0.2-0.9); Monocytes % 6.2 %; Neutrophils # 18.49 10^3/uL (1.8-7.7); Neutrophils % 77.3 %; Nucleated Red Blood Cells % 0 %; Platelet Count 163 10^3/cmm (157-399); Red Blood Count 3.14 10^6/uL (3.85-5.65); Red Cell Distribution Width 20.2 % (12.1-15.1); White Blood Count 23.89 10^3/uL (3.29-11.43)
[2024-10-09 06:07] LABS: Anion Gap 20.1 (5-19); Carbon Dioxide 17 mmol/L (22-29); Chloride 112 mmol/L (98-107); Creatinine Clr Calc Pharmacy 12.1339; Glucose 67 mg/dL (65-115); Osmolality Calculated 331 mOsm/kg (285-295); Potassium 5.1 mmol/L (3.5-5.1); Sodium 144 mmol/L (136-145)
[2024-10-09 06:08] LABS: Procalcitonin 0.25 ng/mL (0-0.5)
[2024-10-09 06:15] LABS: Glucose Point of Care 81 mg/dL (70-110)
[2024-10-09 06:33] LABS: Blood Urea Nitrogen 109 mg/dL (8-23)
[2024-10-09 06:51] LABS: Slide Review Slide Review Perform
[2024-10-09] MEDS: budesonide 0.5 mg/2 mL Neb 0.25 MG INHALATION ×2 (08:22→21:10)
[2024-10-09] MEDS: sennosides-docusate Tablet 1 TAB PO (10:43)
[2024-10-09] MEDS: amiodarone 200 mg Tablet PO (10:43)
[2024-10-09] MEDS: aspirin 81 mg EC Tablet PO (10:43)
[2024-10-09] MEDS: guaiFENesin 600 mg Tablet 1200 MG PO ×2 (10:43→17:35)
[2024-10-09] MEDS: finasteride 5 mg Tablet PO (10:44)
[2024-10-09] MEDS: sodium bicarbonate 650 mg Tablet PO ×3 (10:44→21:09)
[2024-10-09] MEDS: dicyclomine 10 mg Capsule PO ×4 (10:47→21:09)
[2024-10-09 11:02] LABS: Glucose Point of Care 93 mg/dL (70-110)
[2024-10-09] MEDS: meropenem 500 mg SDV IVP ×2 (12:50→23:59)
--- NOTE | 2024-10-09 13:49 | PC.OT ---
ATTEMPT OT TX X2 TODAY. PT ASLEEP AND DOESN'T AROUSE TO VERBAL OR PHYSICAL TOUCH. CONTINUE OT TX PLANNED.
[2024-10-09 13:50] LABS: Influenza A NEGATIVE (Negative); Influenza B NEGATIVE (Negative); SARS-CoV-2 PCR NEGATIVE (Negative)
[2024-10-09 14:06] LABS: Respiratory Syncytial Virus Ce POSITIVE (Negative)
--- NOTE | 2024-10-09 14:24 | P.PN_ITS ---
Subjective 2 Subjective: Patient was seen this morning, patient is extremely hard of hearing, communicated with patient using clipboard and pen, he tells me he is breathing easier, does report a cough, discussed trying dicyclomine for concerns for esophageal spasm, will try a dysphagia level 4 diet moderately thickened, discussed aspiration precautions, Vitals/I&O/Wt Last Vital Signs Temp 97.7 F 10/09/24 08:00 Pulse 81 10/09/24 14:07 Resp 18 10/09/24 13:58 BP 111/52 10/09/24 11:54 Pulse Ox 94 10/09/24 13:58 O2 Del Method Nasal Cannula 10/09/24 13:58 O2 Flow Rate 3 10/09/24 13:58 10/08/24 10/09/24 10/09/24 22:59 06:59 14:59 Intake Total 861.25 / 861.25 120 / 120 Output Total 625 / 825 600 / 1425 Balance -625 / -825 261.25 / -563.75 120 / 120 Weight last 48 hrs Weight 63.458 kg Weight 63.911 kg Physical Exam 2 Const: COMMON NORMALS: no acute distress ORIENTATION/CONSCIOUSNESS: Yes awake, Yes oriented to person and Yes oriented to place Resp: COMMON NORMALS: normal respiratory effort, No retractions and No use of accessory muscles AUSCULTATION: wheezes Cardio: COMMON NORMALS: regular rate, regular rhythm, S1 normal heart sound present and S2 normal heart sound present RATE: regular rate RHYTHM: r egular rhythm HEART SOUNDS: S1 normal heart sound present and S2 normal heart sound present GI: COMMON NORMALS: Normal to inspection, nondistended, normoactive bowel sounds present and non-tender Extremity: COMMON NORMALS: no pedal edema Neuro: SENSORIUM/ORIENTATION: Yes oriented to person and Yes oriented to place Psych: COMMON NORMALS: mental status grossly normal Urinary Catheter Management: Sheikh: Cath Placed During This Visit: yes, but has since been removed by the nurse Reason for Continuing Indwelling Catheter: Decision to DC Catheter Urinary Catheter Date of Insertion: 10/01/24 Urinary Catheter Time of Insertion: 22:19 Date Urinary Catheter Removed: 10/07/24 Time Urinary Catheter Discontinued: 15:30 Data 10/09/24 05:14 10/09/24 05:14 A&P Assessment and plan (1) Hypoxia: (2) Acute kidney injury superimposed on CKD: (3) RSV infection: (4) Urine retention: (5) Hyperkalemia: (6) Transaminitis: (7) Aspiration pneumonia: (8) Esophageal spasm: Plan Acute hypoxic respiratory failure secondary to aspiration pneumonia -CT chest CT/CT chest wo con [id number] IMPRESSION: 1. Bilateral lower lobe bronchopneumonia/bronchiolitis, worse on the right. 2. Moderate to severe bronchitis. 3. Emphysema and likely COPD. 4. Incidental findings as above. -Monitor respiratory status closely -Keep n.p.o. -Start IV meropenem -CT chest ordered -Patient looks euvolemic hold off on diuresis RSV positive, RSV pneumonia, CT scan showing evidence of bronchopneumonia -Continue meropenem -DuoNeb -Budesonide Aspiration pneumonia -Modified barium swallow shows FL/FL barium swallow modifd [id number] IMPRESSION: 1. Barium tablet was retained in the distal esophagus. Underlying stricture or mass not excluded. A conventional barium swallow test is recommended for more detailed evaluation of this area. 2. No aspiration or penetration was identified otherwise. See above discussion. FL/FL barium swallow [id number] IMPRESSION: 1. Presbyesophagus. No intrinsic esophageal mass or stricture was identified. 2. Small hiatal hernia noted. -Evidence of esophageal spasms -Start on scheduled dicyclomine -Aspiration precautions with dysphagia level 4 diet moderately thickened KEEGAN on CKD, monitor -IV fluids -Sodium bicarb Uremia, monitor, start IV fluids Metabolic acidosis, -Likely secondary renal failure -Sodium bicarb tablets Urinary retention, Sheikh catheter removed, bladder scan Right hilar abnormality: Monitor HTN: Hold off on blood pressure medications as patient's blood pressures have been soft Physical deconditioning: PT OT Anemia: Hemoglobin 8.9, monitor CHF: Not in exacerbation monitor Hearing loss: Very hard of hearing, no hearing aids. HTN: Monitor blood pressures A-fib: Continue amiodarone, not on anticoagulation due to chronic/recurrent significant anemia, possible GI bleed. History of hemorrhagic shock. Plan for today start dysphagia level 4 diet, moderately thickened, start dicyclomine continue meropenem continue IV fluids monitor creatinine monitor urine output PDMP PDMP Reviewed: Not Reviewed Attestations 2 Medical Necessity Statement*: Patient requires hospitalization for aspiration pneumonia, esophageal spasms Diagnoses Hypoxia R09.02 Acute kidney injury superimposed on CKD N17.9; N18.9 RSV infection B33.8 Urine retention R33.9 Hyperkalemia E87.5 Transaminitis R74.01 Aspiration pneumonia J69.0 Esophageal spasm K22.4
--- NOTE | 2024-10-09 14:40 | PC.NURSE ---
Post void bladder scan is 173ml.
[2024-10-09] MEDS: methylPREDNISolone sod succ 125 mg/2 mL INJ IVP (15:23)
[2024-10-09 16:58] LABS: Glucose Point of Care 103 mg/dL (70-110)
[2024-10-09 20:47] LABS: Glucose Point of Care 135 mg/dL (70-110)
[2024-10-10] VITALS (14 sets, daily range): BP systolic 125–161; BP diastolic 48–70; PULSE 68–99; RESP 18–24; TEMP 36.3–37; O2SAT 92–98
[2024-10-10] MEDS: ipratropium-albuterol 3 mL Neb INHALATION ×4 (02:21→20:15)
[2024-10-10] MEDS: sodium chloride 0.9% 1,000 ML 75 ML IV (04:52)
[2024-10-10 06:08] LABS: Hematocrit 28.4 % (37-53); Mean Corpuscular HGB Conc 30.6 g/dL (30-55); Mean Corpuscular Volume 91.3 fl (82-101); Platelet Count 162 10^3/cmm (157-399); Red Blood Count 3.11 10^6/uL (3.85-5.65); Red Cell Distribution Width 20.6 % (12.1-15.1); White Blood Count 20.78 10^3/uL (3.29-11.43)
[2024-10-10 06:30] LABS: Glucose Point of Care 120 mg/dL (70-110)
[2024-10-10 06:37] LABS: Procalcitonin 0.23 ng/mL (0-0.5)
[2024-10-10 06:43] LABS: Anion Gap 22.7 (5-19); Carbon Dioxide 15 mmol/L (22-29); Chloride 113 mmol/L (98-107); Creatinine Clr Calc Pharmacy 12.8544; Glucose 113 mg/dL (65-115); Osmolality Calculated 332 mOsm/kg (285-295); Potassium 5.7 mmol/L (3.5-5.1); Sodium 145 mmol/L (136-145)
[2024-10-10 06:44] LABS: Slide Review Slide Review Perform
[2024-10-10 06:47] LABS: Absolute Segmented Neutrophil 18.1 10/cmm (1.6-7.1); Band Neutrophils Absolute 0.4 10^3/cmm (0.0-1.2); Lymphocytes 1 %; Segmented Neutrophils 87 %; Total Cells Counted 100 (0-100)
[2024-10-10 06:48] LABS: Absolute Neutrophil 18.5 10^3/cmm (1.4-6.5); Eosinophils 0 %; Lymphocytes Absolute 0.2 10^3/cmm (1.2-3.4); Platelet Estimate Normal (Normal)
[2024-10-10 07:10] LABS: Blood Urea Nitrogen 99 mg/dL (8-23)
[2024-10-10] MEDS: budesonide 0.5 mg/2 mL Neb 0.25 MG INHALATION ×2 (07:35→20:15)
[2024-10-10] MEDS: amiodarone 200 mg Tablet PO (09:57)
[2024-10-10] MEDS: dicyclomine 10 mg Capsule PO ×4 (09:57→20:59)
[2024-10-10] MEDS: sennosides-docusate Tablet 1 TAB PO (09:57)
[2024-10-10] MEDS: aspirin 81 mg EC Tablet PO (09:57)
[2024-10-10] MEDS: finasteride 5 mg Tablet PO (09:57)
[2024-10-10] MEDS: sodium bicarbonate 650 mg Tablet PO ×3 (09:57→20:59)
[2024-10-10] MEDS: guaiFENesin 600 mg Tablet 1200 MG PO ×2 (09:57→18:02)
[2024-10-10] MEDS: insulin regular-human 100 units/1 mL 10 UNIT IVP (09:58)
[2024-10-10] MEDS: sodium polystyrene sulfonate 15 gm/60 mL Btl PO (09:58)
[2024-10-10] MEDS: calcium gluconate 0.1 gm/mL 10% SDV 10mL 1 GM IVP (10:04)
[2024-10-10] MEDS: sodium bicarbonate 50 MEQ in sodium chloride 0.45% 1,000 ML 100 MEQ IV (10:06)
[2024-10-10] MEDS: dextrose 10% 125 ML 750 ML IV (10:06)
--- NOTE | 2024-10-10 10:10 | PC.SOCIAL ---
IMM Update pg 2 of IMM Updated and reviewed w/ patient. Copy provided and copy dated, initialed and placed in chart.
[2024-10-10 10:47] LABS: Glucose Point of Care 137 mg/dL (70-110)
[2024-10-10] MEDS: meropenem 500 mg SDV IVP (13:27)
--- NOTE | 2024-10-10 14:14 | P.CONIM_ITS ---
Providers/Reason For Consult 2 Consulting Physician/Specialty*: [facility]/Nephrology Reason for Consult*: Acute on CKD Attending Physician: Joshua Bernard MD Primary Care Provider: Adama Olmedo MD History of Present Illness History of Present Illness Jimenez Green is a 89 year old male Patient is a 89-year-old male with past medical history of hypertension, coronary artery disease, dyslipidemia, COPD,CKD 4/5 presented to the emergency department on 10/01/2024 due to worsening shortness of breath cough malaise. Patient has a history of COPD and is on 3 L oxygen at baseline. Patient was found to have leukocytosis he tested positive for RSV. Creatinine was 4.6 on presentation. Noncontrast abdominal CT showed distended bladder no hydronephrosis. Patient also was thought to have aspiration pneumonia underwent a modified barium swallow that showed with concern for underlying esophageal stricture. Patient received IV fluids, creatinine is slowly improving at 4.0 today but continues to be uremic and has metabolic acidosis and hyperkalemia. Currently on a bicarbonate drip. Review of Systems 2 Narrative: negative Medications/Allergies Home Medications ?Medication ?Instructions ?Recorded ?Confirmed ?Last Taken ?Type polyethylene glycol 3350 17 gram 17 g PO DAILY PRN con stipation #30 03/19/22 10/01/24 Unknown Rx oral powder packet (Miralax) ea sennosides 8.6 mg-docusate sodium 1 tab PO DAILY #60 t abs 06/14/22 10/01/24 10/01/24 Rx 50 mg tablet (Stool Softener-Laxative) albuterol sulfate 90 mcg/actuation 2 puff inhalation Q 6H PRN Wheezing 03/23/23 10/01/24 Unknown History aerosol inhaler bisacodyl 10 mg rectal suppository 10 mg [place] DAILY PRN Constipation 03/23/23 10/01/24 Unknown History (Dulcolax (bisacodyl)) budesonide 0.25 mg/2 mL suspension 0.25 mg inhalation BID 03/23/23 10/01/24 10/01/24 History for nebulization ipratropium 0.5 mg-albuterol 3 mg 3 ml inhalation TID 03/23/23 10/01/24 10/01/24 History (2.5 mg base)/3 mL nebulization soln sodium bicarbonate 650 mg tablet 650 mg PO DAILY #30 t abs 03/25/23 10/01/24 10/01/24 Rx acetaminophen 500 mg tablet 1,000 mg PO Q6H PRN Pain 0 04/21/23 10/01/24 09/29/24 History aspirin 81 mg tablet,delayed 81 mg PO DAILY@07 04/21/2 3 10/01/24 10/01/24 History release finasteride 5 mg tablet 5 mg PO DAILY 06/01/2310/0109/30/24 History amiodarone 200 mg tablet 200 mg PO DAILY 06/06/2306/1510/01/24 History Lactobacillus rhamnosus GG 10 1 cap PO DAILY 11/09/23 10/01/24 Unknown History billion cell-inulin 200 mg capsule doxycycline hyclate 100 mg capsule 100 mg PO BID 10/0110/01/24 10/01/24 History furosemide 20 mg tablet 20 mg PO DAILY 10/01/2409/2210/01/24 History metoprolol tartrate 50 mg tablet 25 mg PO BID 10/01/24 10/01/24 10/01/24 History prednisone 20 mg tablet 40 mg PO DAILY 10/01/2409/2210/01/24 History Allergies Allergy/AdvReac Type Severity Reaction Status Date / Time No Known Allergies Allergy Verified 01/02/24 10:37 Current Medications Generic Name Dose Route Start Last Admin Trade Name Freq PRN Reason Stop Dose Admin Albuterol/Ipratropium 3 ml 10/01/24 20:00 10/10/24 13:24 Ipratropium-Albuterol 3 Ml Neb INHALATION 3 ml Q6H.RESP ROSAURA Administration Amiodarone HCl 200 mg 10/02/24 09:00 10/10/24 09:57 Amiodarone 200 Mg Tablet PO 200 mg DAILY ROSAURA Administration Aspirin 81 mg 10/02/24 09:00 10/10/24 09:57 Aspirin 81 Mg Ec Tablet PO 81 mg DAILY ROSAURA Administration Budesonide 0.25 mg 10/01/24 20:00 10/10/24 07:35 Budesonide 0.5 Mg/2 Ml Neb INHALATION 0.25 mg BID.RESPIRATORY ROSAURA Administration Dicyclomine HCl 10 mg 10/09/24 09:00 10/10/24 13:27 Dicyclomine 10 Mg Capsule PO 10 mg QID ROSAURA Administration Finasteride 5 mg 10/02/24 09:00 10/10/24 09:57 Finasteride 5 Mg Tablet PO 5 mg DAILY ROSAURA Administration Guaifenesin 1,200 mg 10/03/24 15:20 10/10/24 09:57 Guaifenesin 600 Mg Tablet PO 1,200 mg BID ROSAURA Administration Hydralazine HCl 10 mg 10/05/24 23:20 10/05/24 23:54 Hydralazine 20 Mg/Ml Inj 1 Ml IVP 10 mg Q4H PRN Administration SBP>160mmHg or DBP>110mmHG Sodium Bicarbonate 50 meq/ 1,050 mls @ 100 mls/hr 10/10/24 08:30 10/10/24 10:06 Sodium Chloride IV 100 mls/hr .[id number] ROSAURA Administration Lanolin 1 applic 10/08/24 09:36 10/08/24 09:46 Lanolin Oint 7 Gm TOPICAL 1 applic PRN PRN Administration DRYNESS Meropenem 500 mg 10/08/24 12:30 10/10/24 13:27 Meropenem 500 Mg Sdv IVP 500 mg Q12H ROSAURA Administration Protocol Senna/Docusate Sodium 1 tab 10/02/24 09:00 10/10/24 09:57 Sennosides-Docusate Tablet PO 1 tab DAILY ROSAURA Administration Sodium Bicarbonate 650 mg 10/07/24 21:00 10/10/24 09:57 Sodium Bicarbonate 650 Mg Tablet PO 650 mg TID ROSAURA Administration PFSH Acute 2 PFSH: Medical History Hyperkalemia Chronic kidney disease, stage 5 Anemia Acute exacerbation of CHF (congestive heart failure) Chronic lower GI bleeding Acute exacerbation of chronic obstructive airways disease COVID SVT (supraventricular tachycardia) Non-ST elevation myocardial infarction (NSTEMI) Cognitive impairment Constipation Hypertension Coronary artery disease Hyperlipidemia COPD (chronic obstructive pulmonary disease) Hemorrhagic shock Surgical History Stented coronary artery 3 stents at [facility] 16 years ago Family History Denies family history of Clotting disorder Chronic kidney disease (CKD) Social History Smoking and tobacco/nicotine status: former use of tobacco/nicotine Quit status (tobacco/nicotine): has quit using Former quit date comment: Quit smoking few weeks ago Alcohol intake: never Substance/Drug Use: never Household members: family Housing: House Vitals/I&O/Wt Last Vital Signs Temp 97.5 F L 10/10/24 11:42 Pulse 70 10/10/24 13:32 Resp 18 10/10/24 13:32 BP 145/65 10/10/24 11:42 Pulse Ox 98 10/10/24 13:32 O2 Del Method Nasal Cannula 10/10/24 13:32 O2 Flow Rate 3 10/10/24 13:32 10/09/24 10/10/24 10/10/24 22:59 06:59 14:59 Intake Total 1020 / 1140 1240 / 2380 125 / 125 Output Total 400 / 600 450 / 1050 Balance 620 / 540 790 / 1330 125 / 125 Weight last 48 hrs Weight 65.034 kg Weight 63.458 kg Physical Exam 2 Narrative: Awake alert, no distress PERRLA Decreased breath sound bilaterally per report S1-S2 regular rate and rhythm per report Abdomen soft nontender per report Bipedal edema Urinary Catheter Management: Sheikh: Cath Placed During This Visit: yes, but has since been removed by the nurse Reason for Continuing Indwelling Catheter: Decision to DC Catheter Urinary Catheter Date of Insertion: 10/01/24 Urinary Catheter Time of Insertion: 22:19 Date Urinary Catheter Removed: 10/07/24 Time Urinary Catheter Discontinued: 15:30 Data 10/10/24 05:52 10/10/24 05:52 A&P Assessment and plan (1) Acute on chronic kidney failure: Acute on chronic kidney disease stage IV: Baseline creatinine in the 3 range about a year ago, now has KEEGAN with a creatinine up to 4.6, I suspect there is some progression of CKD and possibly ATN in the setting of acute infection. UA with 1+ protein 1+ blood and no microscopic hematuria, Will check urine electrolytes and renal ultrasound Agree with IV fluids-bicarbonate drip, will change to D5W with 150 mEq bicarbonate at 100 cc an hour Creatinine is improving continue to monitor, no acute indication for dialysis Hyperkalemia: Medically managing, will increase bicarbonate in the drip, low potassium diet Increased anion gap metabolic acidosis: In the setting of KEEGAN, bicarb drip as able monitor Acute on chronic respiratory failure: On home O2 3 L, now has aspiration pneumonia and RSV, stable currently Anemia: Check iron studies, will order DEVON History of hypertension: Blood pressure stable Patient evaluated using audiovisual cart. Time spent 40 minutes. PDMP PDMP Reviewed: Not Reviewed Consult Attestations 2 Medical Necessity Statement: per magdalena Coding Level of Care Code Acute Code for Chg Fwd Diagnoses Acute on chronic kidney failure N17.9; N18.9
--- NOTE | 2024-10-10 15:22 | PM.CONSULT ---
Providers/Reason For Consult Consulting Physician/Specialty*: General Surgery Reason for Consult*: Possible PEG tube for aspiration pneumonia Attending Physician: Joshua Bernard MD Primary Care Provider: Adama Olmedo MD History of Present Illness History of Present Illness Jimenez Green is a 89 year old male with multiple episodes of aspiration pneumonia who has not been able to tolerate dysphagia 4 diet. Patient is currently admitted for aspiration pneumonia, I was consulted for evaluation for possible PEG tube placement as patient continues to aspirate. He is very hard of hearing very difficult to communicate with. He is agreeable to any kind of procedure that we will help him improve his swallowing capacity Review of Systems General: Reports: ROS unobtainable due to medical condition Medications/Allergies Home Medications ?Medication ?Instructions ?Recorded ?Confirmed ?Last Taken ?Type polyethylene glycol 3350 17 gram 17 g PO DAILY PRN constipation #30 03/19/22 10/01/24 Unknown Rx oral powder packet (Miralax) ea sennosides 8.6 mg-docusate sodium 1 tab PO DAILY #60 tabs 06/14/22 10/01/24 10/01/24 Rx 50 mg tablet (Stool Softener-Laxative) albuterol sulfate 90 mcg/actuation 2 puff inhalation Q6H PRN Wheezing 03/23/23 10/01/24 Unknown History aerosol inhaler bisacodyl 10 mg rectal suppository 10 mg [place] DAILY PRN Constipation 03/23/23 10/01/24 Unknown History (Dulcolax (bisacodyl)) budesonide 0.25 mg/2 mL suspension 0.25 mg inhalation BID 03/23/23 10/01/24 10/01/24 History for nebulization ipratropium 0.5 mg-albuterol 3 mg 3 ml inhalation TID 03/23/23 10/01/24 10/01/24 History (2.5 mg base)/3 mL nebulization soln sodium bicarbonate 650 mg tablet 650 mg PO DAILY #30 tabs 03/25/23 10/01/24 10/01/24 Rx acetaminophen 500 mg tablet 1,000 mg PO Q6H PRN Pain 04/21/23 10/01/24 09/29/24 History aspirin 81 mg tablet,delayed 81 mg PO DAILY@07 04/21/23 10/01/24 10/01/24 History release finasteride 5 mg tablet 5 mg PO DAILY 06/01/23 10/01/24 09/30/24 History amiodarone 200 mg tablet 200 mg PO DAILY 06/06/23 10/01/24 10/01/24 History Lactobacillus rhamnosus GG 10 1 cap PO DAILY 11/09/23 10/01/24 Unknown History billion cell-inulin 200 mg capsule doxycycline hyclate 100 mg capsule 100 mg PO BID 10/01/24 10/01/24 10/01/24 History furosemide 20 mg tablet 20 mg PO DAILY 10/01/24 10/01/24 10/01/24 History metoprolol tartrate 50 mg tablet 25 mg PO BID 10/01/24 10/01/24 10/01/24 History prednisone 20 mg tablet 40 mg PO DAILY 10/01/24 10/01/24 10/01/24 History Allergies Allergy/AdvReac Type Severity Reaction Status Date / Time No Known Allergies Allergy Verified 01/02/24 10:37 Current Medications Generic Name Dose Route Start Last Admin Trade Name Freq PRN Reason Stop Dose Admin Albuterol/Ipratropium 3 ml 10/01/24 20:00 10/10/24 13:24 Ipratropium-Albuterol 3 Ml Neb INHALATION 3 ml Q6H.RESP ROSAURA Administration Amiodarone HCl 200 mg 10/02/24 09:00 10/10/24 09:57 Amiodarone 200 Mg Tablet PO 200 mg DAILY ROSAURA Administration Aspirin 81 mg 10/02/24 09:00 10/10/24 09:57 Aspirin 81 Mg Ec Tablet PO 81 mg DAILY ROSAURA Administration Budesonide 0.25 mg 10/01/24 20:00 10/10/24 07:35 Budesonide 0.5 Mg/2 Ml Neb INHALATION 0.25 mg BID.RESPIRATORY ROSAURA Administration Dicyclomine HCl 10 mg 10/09/24 09:00 10/10/24 13:27 Dicyclomine 10 Mg Capsule PO 10 mg QID ROSAURA Administration Finasteride 5 mg 10/02/24 09:00 10/10/24 09:57 Finasteride 5 Mg Tablet PO 5 mg DAILY ROSAURA Administration Guaifenesin 1,200 mg 10/03/24 15:20 10/10/24 09:57 Guaifenesin 600 Mg Tablet PO 1,200 mg BID ROSAURA Administration Hydralazine HCl 10 mg 10/05/24 23:20 10/05/24 23:54 Hydralazine 20 Mg/Ml Inj 1 Ml IVP 10 mg Q4H PRN Administration SBP>160mmHg or DBP>110mmHG Lanolin 1 applic 10/08/24 09:36 10/08/24 09:46 Lanolin Oint 7 Gm TOPICAL 1 applic PRN PRN Administration DRYNESS Meropenem 500 mg 10/08/24 12:30 10/10/24 13:27 Meropenem 500 Mg Sdv IVP 500 mg Q12H ROSAURA Administration Protocol Senna/Docusate Sodium 1 tab 10/02/24 09:00 10/10/24 09:57 Sennosides-Docusate Tablet PO 1 tab DAILY ROSAURA Administration Sodium Bicarbonate 650 mg 10/07/24 21:00 10/10/24 09:57 Sodium Bicarbonate 650 Mg Tablet PO 650 mg TID ROSAURA Administration PFSH Acute PFSH: Medical History Hyperkalemia Chronic kidney disease, stage 5 Anemia Acute exacerbation of CHF (congestive heart failure) Chronic lower GI bleeding Acute exacerbation of chronic obstructive airways disease COVID SVT (supraventricular tachycardia) Non-ST elevation myocardial infarction (NSTEMI) Cognitive impairment Constipation Hypertension Coronary artery disease Hyperlipidemia COPD (chronic obstructive pulmonary disease) Hemorrhagic shock Surgical History Stented coronary artery 3 stents at [facility] 16 years ago Family History Denies family history of Clotting disorder Chronic kidney disease (CKD) Social History Smoking and tobacco/nicotine status: former use of tobacco/nicotine Quit status (tobacco/nicotine): has quit using Former quit date comment: Quit smoking few weeks ago Alcohol intake: never Substance/Drug Use: never Household members: family Housing: House Vitals/I&O/Wt Last Vital Signs Temp 97.5 F L 10/10/24 11:42 Pulse 70 10/10/24 13:32 Resp 18 10/10/24 13:32 BP 145/65 10/10/24 11:42 Pulse Ox 98 10/10/24 13:32 O2 Del Method Nasal Cannula 10/10/24 13:32 O2 Flow Rate 3 10/10/24 13:32 10/10/24 10/10/24 10/10/24 06:59 14:59 22:59 Intake Total 1240 / 2380 360 / 360 503.333 / 863.333 Output Total 450 / 1050 Balance 790 / 1330 360 / 360 503.333 / 863.333 Weight last 48 hrs Weight 143 lb 6 oz Weight 139 lb 14.4 oz Physical Exam Narrative: Patient is alert and oriented, he is very hard of hearing. Abdomen is soft nontender nondistended. Urinary Catheter Management: Sheikh: Cath Placed During This Visit: yes, but has since been removed by the nurse Reason for Continuing Indwelling Catheter: Decision to DC Catheter Urinary Catheter Date of Insertion: 10/01/24 Urinary Catheter Time of Insertion: 22:19 Date Urinary Catheter Removed: 10/07/24 Time Urinary Catheter Discontinued: 15:30 Data 10/10/24 05:52 10/10/24 05:52 A&P Assessment and plan (1) Esophageal spasm: Plan After complete history, physical examination and review of all available clinical data the following is my assessment. I have reviewed all imaging. In the modified barium swallow and the barium esophagogram patient is able to swallow with out difficulty but the majority of his problem is passing the tablet from the esophagus to the stomach, this likely due to presbyesophagus. I think in the setting EGD with a balloon dilation probably will be beneficial as we might be able to dilate the lower esophageal sphincter to a point where patient can swallow without difficulty. In the case of failure of therapy after dilation the next step will be to offer him a PEG tube. I have discussed all risk and benefits of the procedure with the patient including the risk of perforation of the esophagus, he agrees to proceed. The plan is to go to the endoscopy suite tomorrow, unless there is any acute changes in the patient clinical status that will prevent us from proceeding with intervention. Plan has been discussed with the medical team PDMP PDMP Reviewed: Not Reviewed Coding Level of Care Code 46671 Diagnoses Esophageal spasm K22.4
--- NOTE | 2024-10-10 15:35 | P.PN_ITS ---
Subjective 2 Subjective: - Patient was examined this morning, -He is sitting up in a chair, currently on 3 L, does have active wheezing although improved compared to yesterday, he is tells me that he is doing really good, but does have a fullness in the middle of his chest, he feels that he needs to get it out -Communication was difficult as patient is very hard of hearing I communicated via clipboard and I also spoke very loudly in his right ear which he tells me is his good ear -I had a detailed discussion with him ab out his barium swallow, although it did not show any significant penetration or aspiration, but did show barium swallow blood retained in the distal esophagus followed by barium x-ray which showed moderate amount of spasms throughout the esophagus, -Nonetheless I had placed him on dicyclo mine to see if that would help with his esophageal spasms however yesterday I had transitioned him to a dysphagia level 4 diet moderately thickened however he continued to have episodes of choking coughing even with the thicker, with wheezing associated -I did discuss taking him off amiodarone and adding on diltiazem which but would both help with his atrial fibrillation and help with his esophageal spasms, -But nonetheless despite medical therapy continues to have episodes of aspiration and choking and coughing associated with meals even with aspiration precautions, even with thickener, scheduled dicyclomine -Discussed with him PEG tube placement r isks and benefits discussed procedure discussed -I discussed options with him we can con sult general surgery see what general surgery thinks potentially can have an EGD look into his esophagus to determine if he has any obstruction, -I showed him videos on my phone of an P EG tube placement, EGD -I described the procedure to him in det ail -However I did not get a sense that he u nderstood the complexity of the situation -I discussed with him that my concern is is that with his recurrent choking and coughing, he continues to aspirate continues to develop aspiration pneumonia, which will carry significant related mortality -After all this he had told me what ever you think Doc is the best if you think it is can help me go ahead with it -I am not sure if he really understood t he complexity of the situation but he tells me that if it is going to help him, he wants to go ahead with that, and he trust our opinion -I also spoke to him about his renal ruben lure, his creatinine up to 4.0, will have to watch his creatinine consult nephrology, he acknowledges that he knows he has chronic kidney disease and it has been worsening -I also spoke to patient's son over the phone, discussed with him his hospitalization his respiratory failure multifactorial from aspiration ammonia RSV persistent respiratory failure, persistent episodes of aspiration, his respiratory failure, plans on EGD, he is agreeable he tells me what ever we think is best, but would like to be kept updated Vitals/I&O/Wt Last Vital Signs Temp 97.5 F L 10/10/24 11:42 Pulse 70 10/10/24 13:32 Resp 18 10/10/24 13:32 BP 145/65 10/10/24 11:42 Pulse Ox 98 10/10/24 13:32 O2 Del Method Nasal Cannula 10/10/24 13:32 O2 Flow Rate 3 10/10/24 13:32 10/10/24 10/10/24 10/10/24 06:59 14:59 22:59 Intake Total 1240 / 2380 360 / 360 503.333 / 863.333 Output Total 450 / 1050 Balance 790 / 1330 360 / 360 503.333 / 863.333 Weight last 48 hrs Weight 65.034 kg Weight 63.458 kg Physical Exam 2 Const: COMMON NORMALS: no acute distress ORIENTATION/CONSCIOUSNESS: Yes awake, Yes oriented to person and Yes oriented to place; not oriented to time Resp: COMMON NORMALS: normal respiratory effort, No retractions, No use of accessory muscles and clear to auscultation bilaterally AUSCULTATION: clear to auscultation bilaterally Cardio: COMMON NORMALS: regular rate, regular rhythm, S1 normal heart sound present and S2 normal heart sound present RATE: regular rate RHYTHM: r egular rhythm HEART SOUNDS: S1 normal heart sound present and S2 normal heart sound present GI: COMMON NORMALS: Normal to inspection, nondistended, normoactive bowel sounds present and non-tender Extremity: COMMON NORMALS: no pedal edema Neuro: SENSORIUM/ORIENTATION: Yes oriented to person, Yes oriented to place and No oriented to time Urinary Catheter Management: Sheikh: Cath Placed During This Visit: yes, but has since been removed by the nurse Reason for Continuing Indwelling Catheter: Decision to DC Catheter Urinary Catheter Date of Insertion: 10/01/24 Urinary Catheter Time of Insertion: 22:19 Date Urinary Catheter Removed: 10/07/24 Time Urinary Catheter Discontinued: 15:30 Data 10/10/24 05:52 10/10/24 05:52 A&P Assessment and plan (1) Hypoxia: (2) Acute kidney injury superimposed on CKD: (3) RSV infection: (4) Urine retention: (5) Hyperkalemia: (6) Transaminitis: (7) Aspiration pneumonia: (8) Esophageal spasm: Plan Acute hypoxic respiratory failure secondary to aspiration pneumonia -CT chest CT/CT chest wo con [id number] IMPRESSION: 1. Bilateral lower lobe bronchopneumonia/bronchiolitis, worse on the right. 2. Moderate to severe bronchitis. 3. Emphysema and likely COPD. 4. Incidental findings as above. -Monitor respiratory status closely -Keep n.p.o. -Start IV meropenem -Patient looks euvolemic hold off on diuresis RSV positive, RSV pneumonia, CT scan showing evidence of bronchopneumonia -Continue meropenem -DuoNeb -Budesonide Aspiration pneumonia -Modified barium swallow shows FL/FL barium swallow modifd [id number] IMPRESSION: 1. Barium tablet was retained in the distal esophagus. Underlying stricture or mass not excluded. A conventional barium swallow test is recommended for more detailed evaluation of this area. 2. No aspiration or penetration was identified otherwise. See above discussion. FL/FL barium swallow [id number] IMPRESSION: 1. Presbyesophagus. No intrinsic esophageal mass or stricture was identified. 2. Small hiatal hernia noted. -Evidence of esophageal spasms, is on dicyclomine, will also add on diltiazem -Continue to have episodes of aspiration even on dysphagia level 4 diet, moderately thickened with episodes of choking coughing wheezing shortness of breath witnessed by nursing staff, witnessed by me, speech therapy -General Surgery consulted plans on EGD -Will see how he does with the EGD with the possibility of PEG tube placement KEEGAN on CKD, monitor -Nephrology consulted -IV fluids -Sodium bicarb Uremia, monitor, start IV fluids Metabolic acidosis, -Likely secondary renal failure -Sodium bicarb tablets Urinary retention, Sheikh catheter removed, bladder scan Right hilar abnormality: Monitor HTN: Hold off on blood pressure medications as patient's blood pressures have been soft Physical deconditioning: PT OT Anemia: Hemoglobin 8.7, monitor CHF: Not in exacerbation monitor Hearing loss: Very hard of hearing, no hearing aids. HTN: Monitor blood pressures A-fib: Will switch to diltiazem, not on anticoagulation due to history of GI bleeds Plan for today we will keep n.p.o. nephrology consultation General Surgery consultation continue IV meropenem PDMP PDMP Reviewed: Not Reviewed Attestations 2 Medical Necessity Statement*: Patient requires hospitalization for recurrent aspiration, Diagnoses Hypoxia R09.02 Acute kidney injury superimposed on CKD N17.9; N18.9 RSV infection B33.8 Urine retention R33.9 Hyperkalemia E87.5 Transaminitis R74.01 Aspiration pneumonia J69.0 Esophageal spasm K22.4
[2024-10-10] MEDS: sodium bicarbonate 150 MEQ in dextrose 5% 1,000 ML 100 MEQ IV (15:58)
[2024-10-10] MEDS: EPOETIN ALFA-EPBX 10,000 UNIT/ML SDV (ESRD) 10000 UNIT SUBCUT (15:58)
[2024-10-10 16:33] LABS: Glucose Point of Care 99 mg/dL (70-110)
[2024-10-10 20:39] LABS: Glucose Point of Care 115 mg/dL (70-110)
[2024-10-11] VITALS (12 sets, daily range): BP systolic 135–160; BP diastolic 56–80; PULSE 71–94; RESP 14–20; TEMP 36.1–36.6; O2SAT 92–100
[2024-10-11] MEDS: meropenem 500 mg SDV IVP ×2 (01:58→15:53)
[2024-10-11] MEDS: sodium bicarbonate 150 MEQ in dextrose 5% 1,000 ML 100 MEQ IV (01:58)
[2024-10-11] MEDS: ipratropium-albuterol 3 mL Neb INHALATION ×2 (02:38→07:36)
[2024-10-11 05:42] LABS: Glucose Point of Care 104 mg/dL (70-110)
[2024-10-11 06:08] LABS: Basophils % 0.1 %; Eosinophils # 0.3 10^3/uL (0.0-0.8); Eosinophils % 1.2 %; Hematocrit 29.7 % (37-53); Lymphocytes # 0.7 10^3/uL (0.8-4.8); Lymphocytes % 2.4 %; Mean Corpuscular HGB Conc 30.6 g/dL (30-55); Mean Corpuscular Hemoglobin 27.8 pg (27-33); Mean Corpuscular Volume 90.8 fl (82-101); Mean Platelet Volume 11.2 fL (7.4-10.4); Monocytes # 1.5 10^3/uL (0.2-0.9); Neutrophils # 22.61 10^3/uL (1.8-7.7); Nucleated Red Blood Cells % 0 %; Platelet Count 143 10^3/cmm (157-399); Red Blood Count 3.27 10^6/uL (3.85-5.65); Red Cell Distribution Width 20.7 % (12.1-15.1); White Blood Count 28.99 10^3/uL (3.29-11.43)
[2024-10-11 06:31] LABS: Calcium 8.4 mg/dL (8.5-10.5); Carbon Dioxide 22 mmol/L (22-29); Chloride 114 mmol/L (98-107); Creatinine Clr Calc Pharmacy 13.1916; Glucose 93 mg/dL (65-115); Osmolality Calculated 335 mOsm/kg (285-295); Sodium 150 mmol/L (136-145)
[2024-10-11 06:35] LABS: Procalcitonin 0.23 ng/mL (0-0.5)
[2024-10-11 06:45] LABS: Blood Urea Nitrogen 83 mg/dL (8-23)
[2024-10-11 07:16] LABS: Slide Review Slide Review Perform
[2024-10-11] MEDS: budesonide 0.5 mg/2 mL Neb 0.25 MG INHALATION (07:35)
[2024-10-11] MEDS: sodium bicarbonate 650 mg Tablet PO ×3 (09:46→22:27)
[2024-10-11] MEDS: finasteride 5 mg Tablet PO (09:46)
[2024-10-11] MEDS: guaiFENesin 600 mg Tablet 1200 MG PO ×2 (09:46→17:34)
[2024-10-11] MEDS: sennosides-docusate Tablet 1 TAB PO (09:46)
[2024-10-11] MEDS: aspirin 81 mg EC Tablet PO (09:46)
[2024-10-11] MEDS: dicyclomine 10 mg Capsule PO ×3 (09:46→22:27)
--- NOTE | 2024-10-11 10:36 | PC.NURSE ---
Report given to GI Lab nurse via phone. All questions answered. Updated time for procedure discussed as well. Pt to be picked up around 1300
[2024-10-11 11:30] LABS: Glucose Point of Care 107 mg/dL (70-110)
--- NOTE | 2024-10-11 13:01 | PC.OT ---
HOLD OT TREATMENT DUE TO PATIENT PROCEDURE IN SURGERY
--- NOTE | 2024-10-11 13:18 | W.PM.OPSUD ---
Surgery/Procedure H&P Update DATE OF PROCEDURE: October 11, 2024 DATE H&P PERFORMED: 10/25/19 H&P UPDATE INFORMATION: I have reviewed H&P completed within last 30 days, I have examined patient prior to procedure, No changes to prior documentation and H&P is in [facility] [place] on date indicated PLANNED PROCEDURE: Operation Date: 10/11/24 12:40 Proposed Procedures p EGD W/POSS BALLOON DILATION(Not Applicable) - Robby Orozco MD
[2024-10-11] MEDS: sodium chloride 0.9% 500 ML 15 ML IV (13:24)
--- NOTE | 2024-10-11 13:25 | P.PN_ITS ---
Subjective 2 Subjective: no new c/o Medications: Reviewed: Yes Vitals/I&O/Wt Last Vital Signs Temp 97.3 F L 10/11/24 12:38 Pulse 91 10/11/24 12:38 Resp 20 H 10/11/24 12:38 BP 160/80 10/11/24 12:38 Pulse Ox 92 10/11/24 12:38 O2 Del Method Nasal Cannula 10/11/24 12:38 O2 Flow Rate 3 10/11/24 12:38 10/10/24 10/11/24 10/11/24 22:59 06:59 14:59 Intake Total 503.333 / 407.326 9128 / 1863.333 Output Total 800 / 800 500 / 1300 400 / 400 Balance -296.667 / 63.333 500 / 563.333 -400 / -400 Weight last 48 hrs Weight 65.136 kg Weight 65.034 kg Physical Exam 2 Narrative: Awake alert, no distress PERRLA Decreased breath sound bilaterally per report S1-S2 regular rate and rhythm per report Abdomen soft nontender per report Bipedal edema Urinary Catheter Management: Sheikh: Cath Placed During This Visit: yes, but has since been removed by the nurse Reason for Continuing Indwelling Catheter: Decision to DC Catheter Urinary Catheter Date of Insertion: 10/01/24 Urinary Catheter Time of Insertion: 22:19 Date Urinary Catheter Removed: 10/07/24 Time Urinary Catheter Discontinued: 15:30 Data 10/11/24 05:50 10/11/24 05:50 A&P Assessment and plan (1) Acute on chronic kidney failure: Acute on chronic kidney disease stage IV: Baseline creatinine in the 3 range about a year ago, now has KEEGAN with a creatinine up to 4.6, I suspect there is some progression of CKD and possibly ATN in the setting of acute infection. UA with 1+ protein 1+ blood and no microscopic hematuria, Will check urine electrolytes and renal ultrasound Renal function currently stable Switch IV fluids to D5 half-normal saline at 100 an hour due to hypernatremia Creatinine is improving continue to monitor, no acute indication for dialysis Hyperkalemia: Medically managing, will increase bicarbonate in the drip, low potassium diet Increased anion gap metabolic acidosis: In the setting of KEEGAN, improved Acute on chronic respiratory failure: On home O2 3 L, now has aspiration pneumonia and RSV, stable currently Anemia: Check iron studies, s/p DEVON History of hypertension: Blood pressure stable Patient evaluated using audiovisual cart. Time spent 40 minutes. PDMP PDMP Reviewed: Not Reviewed Attestations 2 Medical Necessity Statement*: per magdalena Coding Level of Care Code Acute Code for Chg Fwd Diagnoses Acute on chronic kidney failure N17.9; N18.9
--- NOTE | 2024-10-11 13:31 | ANES.PREANE2 ---
Pre-Anesthetic Assessment Height/Weight: Height 5 ft 11 in Weight 143 lb 9.6 oz Temp Pulse Resp BP Pulse Ox O2 Del Method O2 Flow Rate 97.3 F L 91 20 H 160/80 92 Nasal Cannula 3 10/11/24 12:38 10/11/24 12:38 10/11/24 12:38 10/11/24 12:38 10/11/24 12:38 10/11/24 12:38 10/11/24 12:38 Preop Diagnosis: Recurrent aspiration Operation Date: 10/11/24 12:40 Proposed Procedures p EGD W/POSS BALLOON DILATION(Not Applicable) - Robby Orozco MD Was Beta Richar taken within 24 hours: Yes Was Clonidine taken within 24 hours: N/A Social No alcohol and No tobacco Exam alert, oriented x 3, clear to auscultation bilaterally and regular rate & rhythm Airway Submandibular: within normal limits Cervical ROM: within normal limits Mallampati: Class III Dentition: false Anesthetic Plan ASA status: 4E Anesthesia: General Other: Denies any issues with anesthesia in the past NPO since yesterday Recurrent aspiration pneumonia, currently on 3 L nasal cannula SpO2 90-92% RSV positive KEEGAN on CKD Labs from today reviewed, leukocytosis noted. WBC 28.9, hemoglobin 9.1, NA 150, K+ 5.0, BUN/CR 83/3.9 EKG showing sinus rhythm Prior EKG in 2021 showing EF 55 to 60% Patient is completely deaf, anesthesia of evaluation performed via handwriting. Extensive discussion about possibility of retained intubation if we need to intubate patient given his poor pulmonary function currently Plan for MAC anesthetic Medications/Allergies Home Medications ?Medication ?Instructions ?Recorded ?Confirmed ?Last Taken ?Type polyethylene glycol 3350 17 gram 17 g PO DAILY PRN constipation #30 03/19/22 10/01/24 Unknown Rx oral powder packet (Miralax) ea sennosides 8.6 mg-docusate sodium 1 tab PO DAILY #60 tabs 06/14/22 10/01/24 10/01/24 Rx 50 mg tablet (Stool Softener-Laxative) albuterol sulfate 90 mcg/actuation 2 puff inhalation Q6H PRN Wheezing 03/23/23 10/01/24 Unknown History aerosol inhaler bisacodyl 10 mg rectal suppository 10 mg MT DAILY PRN Constipation 03/23/23 10/01/24 Unknown History (Dulcolax (bisacodyl)) budesonide 0.25 mg/2 mL suspension 0.25 mg inhalation BID 03/23/23 10/01/24 10/01/24 History for nebulization ipratropium 0.5 mg-albuterol 3 mg 3 ml inhalation TID 03/23/23 10/01/24 10/01/24 History (2.5 mg base)/3 mL nebulization soln sodium bicarbonate 650 mg tablet 650 mg PO DAILY #30 tabs 03/25/23 10/01/24 10/01/24 Rx acetaminophen 500 mg tablet 1,000 mg PO Q6H PRN Pain 04/21/23 10/01/24 09/29/24 History aspirin 81 mg tablet,delayed 81 mg PO DAILY@07 04/21/23 10/01/24 10/01/24 History release finasteride 5 mg tablet 5 mg PO DAILY 06/01/23 10/01/24 09/30/24 History amiodarone 200 mg tablet 200 mg PO DAILY 06/06/23 10/01/24 10/01/24 History Lactobacillus rhamnosus GG 10 1 cap PO DAILY 11/09/23 10/01/24 Unknown History billion cell-inulin 200 mg capsule doxycycline hyclate 100 mg capsule 100 mg PO BID 10/01/24 10/01/24 10/01/24 History furosemide 20 mg tablet 20 mg PO DAILY 10/01/24 10/01/24 10/01/24 History metoprolol tartrate 50 mg tablet 25 mg PO BID 10/01/24 10/01/24 10/01/24 History prednisone 20 mg tablet 40 mg PO DAILY 10/01/24 10/01/24 10/01/24 History Allergies Allergy/AdvReac Type Severity Reaction Status Date / Time No Known Allergies Allergy Verified 01/02/24 10:37 Current Medications Generic Name Dose Route Start Last Admin Trade Name Freq PRN Reason Stop Dose Admin Albuterol/Ipratropium 3 ml 10/01/24 20:00 10/11/24 07:36 Ipratropium-Albuterol 3 Ml Neb INHALATION 3 ml Q6H.RESP ROSAURA Administration Aspirin 81 mg 10/02/24 09:00 10/11/24 09:46 Aspirin 81 Mg Ec Tablet PO 81 mg DAILY ROSAURA Administration Budesonide 0.25 mg 10/01/24 20:00 10/11/24 07:35 Budesonide 0.5 Mg/2 Ml Neb INHALATION 0.25 mg BID.RESPIRATORY ROSAURA Administration Dicyclomine HCl 10 mg 10/09/24 09:00 10/11/24 09:46 Dicyclomine 10 Mg Capsule PO 10 mg QID ROSAURA Administration Finasteride 5 mg 10/02/24 09:00 10/11/24 09:46 Finasteride 5 Mg Tablet PO 5 mg DAILY ROSAURA Administration Guaifenesin 1,200 mg 10/03/24 15:20 10/11/24 09:46 Guaifenesin 600 Mg Tablet PO 1,200 mg BID ROSAURA Administration Hydralazine HCl 10 mg 10/05/24 23:20 10/05/24 23:54 Hydralazine 20 Mg/Ml Inj 1 Ml IVP 10 mg Q4H PRN Administration SBP>160mmHg or DBP>110mmHG Sodium Chloride 500 mls @ 15 mls/hr 10/11/24 13:04 10/11/24 13:24 Sodium Chloride 0.9% IV 10/12/24 13:03 15 mls/hr .Q24H PRN Administration COLONOSCOPY FLUIDS Lanolin 1 applic 10/08/24 09:36 10/08/24 09:46 Lanolin Oint 7 Gm TOPICAL 1 applic PRN PRN Administration DRYNESS Meropenem 500 mg 10/08/24 12:30 10/11/24 01:58 Meropenem 500 Mg Sdv IVP 500 mg Q12H ROSAURA Administration Protocol Senna/Docusate Sodium 1 tab 10/02/24 09:00 10/11/24 09:46 Sennosides-Docusate Tablet PO 1 tab DAILY ROSAURA Administration Sodium Bicarbonate 650 mg 10/07/24 21:00 10/11/24 09:46 Sodium Bicarbonate 650 Mg Tablet PO 650 mg TID ROSAURA Administration PFSH Anesthesia Medical History Hyperkalemia Chronic kidney disease, stage 5 Anemia Acute exacerbation of CHF (congestive heart failure) Chronic lower GI bleeding Acute exacerbation of chronic obstructive airways disease COVID SVT (supraventricular tachycardia) Non-ST elevation myocardial infarction (NSTEMI) Cognitive impairment Constipation Hypertension Coronary artery disease Hyperlipidemia COPD (chronic obstructive pulmonary disease) Hemorrhagic shock Surgical History Stented coronary artery 3 stents at [facility] years ago Family History Denies family history of Clotting disorder Chronic kidney disease (CKD) Social History Smoking and tobacco/nicotine status: former use of tobacco/nicotine Quit status (tobacco/nicotine): has quit using Former quit date comment: Quit smoking few weeks ago Alcohol intake: never Substance/Drug Use: never Household members: family Housing: House Data Anesthesia 10/11/24 05:50 10/11/24 05:50 Short CBC 10/10/24 10/11/24 Range/Units 05:52 05:50 WBC 20.78 H 28.99 H (3.29-11.43) 10^3/uL Hgb 8.70 L 9.10 L (11.27-16.99) g/dL Hct 28.4 L 29.7 L (37-53) % MCV 91.3 90.8 (82-101) fl Plt Count 162 143 L (157-399) 10^3/cmm Neut % (Auto) 78.0 % Neut # (Auto) 22.61 H (1.8-7.7) 10^3/uL BMP 10/10/24 10/11/24 05:52 05:50 Sodium 145 150 H Potassium 5.7 H 5.0 Chloride 113 H 114 H Carbon Dioxide 15 L 22 BUN 99 H* 83 H* Creatinine 4.0 H 3.9 H Glucose 113 93 Calcium 8.0 L 8.4 L COVID Results 10/09/24 12:50 SARS-CoV-2 (PCR) Negative Coags 10/10/24 10/11/24 05:52 05:50 C-Reactive Protein 3.0 3.0 Cardiac Studies: Echocardiogram 07/11/21 Echocardiogram Limited Views 10/23/21
--- NOTE | 2024-10-11 14:35 | ANE.PACU2 ---
Inpatient post-anesthesia follow up: Airway intact: Yes Vital signs: Temperature 97 F Pulse Rate 94 Respiratory Rate 18 Blood Pressure 143/62 Pulse Oximetry [Qu alifying 93 Sp02 on Oxygen wit h Exercise] Pulse Oximetry [Ro om Air at 87 Rest] Pulse Oximetry 94 Oxygen Delivery Me thod Nasal Cannula Oxygen Flow Rate 4 Fraction of Inspir ed Oxygen Hydration adequate: Yes Nausea and vomiting: No Pain level: 1 Mental status: Baseline
[2024-10-11] MEDS: dextrose 5%-sod chloride 0.45% 1,000 ML 75 ML IV (15:53)
[2024-10-11 16:57] LABS: NT Pro B Type Natriuretic Pept 872 pg/mL (0-450)
[2024-10-11 17:04] LABS: Glucose Point of Care 89 mg/dL (70-110)
[2024-10-11] MEDS: dilTIAZem 30 mg Tablet PO (17:34)
--- NOTE | 2024-10-11 18:05 | P.PN_ITS ---
Subjective 2 Subjective: Patient was evaluated this morning, he tells me the thumbs up that he is doing okay he really wants to have a sip of water, we discussed his n.p.o. status plans on EGD, he understands this, Vitals/I&O/Wt Last Vital Signs Temp 97.4 F L 10/11/24 14:48 Pulse 84 10/11/24 14:48 Resp 18 10/11/24 14:48 BP 135/63 10/11/24 14:48 Pulse Ox 98 10/11/24 14:48 O2 Del Method Nasal Cannula 10/11/24 14:48 O2 Flow Rate 4 10/11/24 14:30 10/11/24 10/11/24 10/11/24 06:59 14:59 22:59 Intake Total 1000 / 1863.333 200 / 200 Output Total 500 / 1300 400 / 400 300 / 700 Balance 500 / 563.333 -200 / -200 -300 / -500 Weight last 48 hrs Weight 65.136 kg Weight 65.034 kg Physical Exam 2 Const: COMMON NORMALS: no acute distress ORIENTATION/CONSCIOUSNESS: Yes awake and Yes oriented to person Resp: COMMON NORMALS: normal respiratory effort, No retractions and No use of accessory muscles AUSCULTATION: crackles and wheezes Cardio: COMMON NORMALS: regular rate, regular rhythm, S1 normal heart sound present and S2 normal heart sound present RATE: regular rate RHYTHM: r egular rhythm HEART SOUNDS: S1 normal heart sound present and S2 normal heart sound present GI: COMMON NORMALS: Normal to inspection, nondistended, normoactive bowel sounds present Extremity: COMMON NORMALS: no pedal edema Neuro: SENSORIUM/ORIENTATION: Yes oriented to person Psych: COMMON NORMALS: mental status grossly normal Urinary Catheter Management: Sheikh: Cath Placed During This Visit: yes, but has since been removed by the nurse Reason for Continuing Indwelling Catheter: Decision to DC Catheter Urinary Catheter Date of Insertion: 10/01/24 Urinary Catheter Time of Insertion: 22:19 Date Urinary Catheter Removed: 10/07/24 Time Urinary Catheter Discontinued: 15:30 Data 10/11/24 05:50 10/11/24 05:50 A&P Assessment and plan (1) Hypoxia: (2) Acute kidney injury superimposed on CKD: (3) RSV infection: (4) Urine retention: (5) Hyperkalemia: (6) Transaminitis: (7) Aspiration pneumonia: (8) Esophageal spasm: Plan Acute hypoxic respiratory failure secondary to aspiration pneumonia -CT chest CT/CT chest wo con [id number] IMPRESSION: 1. Bilateral lower lobe bronchopneumonia/bronchiolitis, worse on the right. 2. Moderate to severe bronchitis. 3. Emphysema and likely COPD. 4. Incidental findings as above. -Monitor respiratory status closely -Keep n.p.o., pending EGD results we will consider starting on dysphagia leve 4 diet with extreme thickener -IV meropenem -Patient looks euvolemic hold off on diuresis RSV positive, RSV pneumonia, CT scan showing evidence of bronchopneumonia -Continue meropenem -DuoNeb -Budesonide Aspiration pneumonia -Modified barium swallow shows FL/FL barium swallow modifd [id number] IMPRESSION: 1. Barium tablet was retained in the distal esophagus. Underlying stricture or mass not excluded. A conventional barium swallow test is recommended for more detailed evaluation of this area. 2. No aspiration or penetration was identified otherwise. See above discussion. FL/FL barium swallow [id number] IMPRESSION: 1. Presbyesophagus. No intrinsic esophageal mass or stricture was identified. 2. Small hiatal hernia noted. -Evidence of esophageal spasms, is on dicyclomine, will also add on diltiazem -Continue to have episodes of aspiration even on dysphagia level 4 diet, moderately thickened with episodes of choking coughing wheezing shortness of breath witnessed by nursing staff, witnessed by me, speech therapy -General Surgery consulted plans on EGD -Will see how he does with the EGD with the possibility of PEG tube placement KEEGAN on CKD, monitor -Nephrology consulted -IV fluids -Sodium bicarb Uremia, monitor, IV fluids Metabolic acidosis, -Likely secondary renal failure -Sodium bicarb tablets Urinary retention, Sheikh catheter removed, bladder scan Right hilar abnormality: Monitor HTN: Hold off on blood pressure medications as patient's blood pressures have been soft Physical deconditioning: PT OT Hypernatremia monitor likely associated decreased oral intake given n.p.o. status, monitor Anemia: Hemoglobin 8.7, monitor CHF: Not in exacerbation monitor Hearing loss: Very hard of hearing, no hearing aids. HTN: Monitor blood pressures A-fib: Will switch to diltiazem, not on anticoagulation due to history of GI bleeds Plan for today EGD, consider transitioning to dysphagia level 4 extreme thickness, continue IV antibiotics continue fluids PDMP PDMP Reviewed: Not Reviewed Attestations 2 Medical Necessity Statement*: Patient requires hospitalization for acute hypoxic respiratory failure, Diagnoses Hypoxia R09.02 Acute kidney injury superimposed on CKD N17.9; N18.9 RSV infection B33.8 Urine retention R33.9 Hyperkalemia E87.5 Transaminitis R74.01 Aspiration pneumonia J69.0 Esophageal spasm K22.4
[2024-10-11 21:03] LABS: Glucose Point of Care 112 mg/dL (70-110)
[2024-10-12] VITALS (13 sets, daily range): BP systolic 123–143; BP diastolic 68–78; PULSE 72–90; RESP 14–20; TEMP 36.4–37.1; O2SAT 95–99; BMI 20.1
[2024-10-12] MEDS: dilTIAZem 30 mg Tablet PO ×5 (00:36→23:58)
[2024-10-12] MEDS: ipratropium-albuterol 3 mL Neb INHALATION ×4 (02:22→20:06)
--- NOTE | 2024-10-12 04:00 | PC.NURSE ---
patient complaining that his arm was burning where his iv was inserted, his arm is swollen and warm to touch. nurse dc'd iv catheter. iv catheter intact upon removal. patient tolerated well.
--- NOTE | 2024-10-12 04:03 | PC.NURSE ---
patient has merropenum due at 330 IVP, patient has no iv access at this time. several attempts for placement but all were unsucessful
[2024-10-12 05:28] LABS: Hematocrit 31.1 % (37-53); Mean Corpuscular HGB Conc 30.2 g/dL (30-55); Mean Corpuscular Hemoglobin 27.4 pg (27-33); Mean Corpuscular Volume 90.7 fl (82-101); Mean Platelet Volume 11.3 fL (7.4-10.4); Platelet Count 158 10^3/cmm (157-399); Red Blood Count 3.43 10^6/uL (3.85-5.65); Red Cell Distribution Width 20.6 % (12.1-15.1)
[2024-10-12 05:51] LABS: NT Pro B Type Natriuretic Pept 1062 pg/mL (0-450)
[2024-10-12 05:52] LABS: Alanine Aminotransferase 35 U/L (0-41); Alkaline Phosphatase 48 U/L (40-130); Anion Gap 16.9 (5-19); Aspartate Amino Transferase 22 U/L (0-40); Blood Urea Nitrogen 74 mg/dL (8-23); C Reactive Protein 6.2 mg/L (0.0-4.9); Calcium 8.4 mg/dL (8.5-10.5); Carbon Dioxide 24 mmol/L (22-29); Chloride 111 mmol/L (98-107); Creatinine Clr Calc Pharmacy 15.1315; Glucose 78 mg/dL (65-115); Magnesium 2.2 mg/dL (1.7-2.3); Osmolality Calculated 325 mOsm/kg (285-295); Phosphorus 4.2 mg/dL (2.5-4.5); Potassium 4.9 mmol/L (3.5-5.1); Sodium 147 mmol/L (136-145); Total Bilirubin 0.3 mg/dL (0.15-1.2)
[2024-10-12 06:46] LABS: White Blood Count 33.72 10^3/uL (3.29-11.43)
[2024-10-12 06:47] LABS: Absolute Eosinophils 0.3 10^3/cmm (0.0-0.7); Band Neutrophils Absolute 0.3 10^3/cmm (0.0-1.2); Eosinophils 1 %; Lymphocytes 0 %; Monocytes Absolute 0.3 10^3/cmm (0.1-0.6); Segmented Neutrophils 83 %; Total Cells Counted 100 (0-100)
[2024-10-12 06:48] LABS: Absolute Neutrophil 28.3 10^3/cmm (1.4-6.5); Blastocytes 1 % (0-0); Lymphocytes Absolute 1.3 10^3/cmm (1.2-3.4); Platelet Estimate Decreased (Normal)
[2024-10-12 06:57] LABS: Glucose Point of Care 200 mg/dL (70-110)
--- NOTE | 2024-10-12 07:00 | XR_ITS ---
WS: [id number] Exam: XR chest 1V portable [id number] Date/Time of Exam: 10/12/2024 6:54 AM Reason For Exam: sob Comparison 10/03/2024. Lungs are fully inflated and clear. Normal cardiomediastinal silhouette. Bony structures are intact. 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 XR/XR chest 1V portable [id number] IMPRESSION: 1. No acute cardiopulmonary finding.
[2024-10-12] MEDS: budesonide 0.5 mg/2 mL Neb 0.25 MG INHALATION ×2 (07:46→20:06)
[2024-10-12] MEDS: dicyclomine 10 mg Capsule PO ×2 (09:06→13:12)
[2024-10-12] MEDS: aspirin 81 mg EC Tablet PO (09:06)
[2024-10-12] MEDS: guaiFENesin 600 mg Tablet 1200 MG PO ×2 (09:06→17:55)
[2024-10-12] MEDS: sodium bicarbonate 650 mg Tablet PO ×3 (09:06→20:50)
[2024-10-12] MEDS: finasteride 5 mg Tablet PO (09:06)
[2024-10-12] MEDS: sennosides-docusate Tablet 1 TAB PO (09:06)
[2024-10-12 09:24] LABS: LAB Peripheral Smear Sent for Review
--- NOTE | 2024-10-12 10:04 | PC.SOCIAL ---
IMM Update pg 2 of IMM Updated and reviewed w/ patient. Copy provided and copy dated, initialed and placed in chart.
[2024-10-12 11:36] LABS: Glucose Point of Care 95 mg/dL (70-110)
[2024-10-12] MEDS: dextrose 5%-sod chloride 0.45% 1,000 ML 75 ML IV (13:14)
--- NOTE | 2024-10-12 13:28 | PM.PN ---
Subjective Subjective: no new complaints Medications: Reviewed: Yes Vitals/I&O/Wt Last Vital Signs Temp 97.6 F 10/12/24 12:03 Pulse 77 10/12/24 12:03 Resp 18 10/12/24 12:03 BP 123/72 10/12/24 12:03 Pulse Ox 97 10/12/24 12:03 O2 Del Method Nasal Cannula 10/12/24 12:03 O2 Flow Rate 3 10/12/24 07:46 10/11/24 10/12/24 10/12/24 22:59 06:59 14:59 Intake Total 1660 / 1860 1200 / 3060 660 / 660 Output Total 900 / 1300 175 / 1475 400 / 400 Balance 760 / 560 1025 / 1585 260 / 260 Weight last 48 hrs Weight 65.516 kg Weight 65.136 kg Physical Exam Narrative: Awake alert, no distress PERRLA Decreased breath sound bilaterally per report S1-S2 regular rate and rhythm per report Abdomen soft nontender per report Bipedal edema Urinary Catheter Management: Sheikh: Cath Placed During This Visit: yes, but has since been removed by the nurse Reason for Continuing Indwelling Catheter: Decision to DC Catheter Urinary Catheter Date of Insertion: 10/01/24 Urinary Catheter Time of Insertion: 22:19 Date Urinary Catheter Removed: 10/07/24 Time Urinary Catheter Discontinued: 15:30 Data 10/12/24 04:50 10/12/24 04:50 A&P Assessment and plan (1) Acute on chronic kidney failure: Acute on chronic kidney disease stage IV: Baseline creatinine in the 3 range about a year ago, now has KEEGAN with a creatinine up to 4.6, I suspect there is some progression of CKD and possibly ATN in the setting of acute infection. UA with 1+ protein 1+ blood and no microscopic hematuria, Will check urine electrolytes and renal ultrasound Renal function currently stable on D5 half-normal saline at 75 cc/hr , decrease to 50 cc /hr due to hypernatremia Creatinine is improving continue to monitor, no acute indication for dialysis Hyperkalemia: Medically managing, low potassium diet Increased anion gap metabolic acidosis: In the setting of KEEGAN, improved Acute on chronic respiratory failure: On home O2 3 L, now has aspiration pneumonia and RSV, stable currently Anemia: Check iron studies, s/p DEVON History of hypertension: Blood pressure stable Patient evaluated using audiovisual cart. Time spent 40 minutes. Plan per medicne PDMP PDMP Reviewed: Not Reviewed Attestations Medical Necessity Statement*: per [facility] Coding Level of Care Code Acute Code for Chg Fwd Diagnoses Acute on chronic kidney failure N17.9; N18.9
[2024-10-12] MEDS: meropenem 500 mg SDV IVP (16:00)
--- NOTE | 2024-10-12 16:17 | P.PN_ITS ---
Subjective 2 Subjective: Patient was seen this morning, he tells me he feels better, his swallowing has improved, no fevers, no chills, Vitals/I&O/Wt Last Vital Signs Temp 97.9 F 10/12/24 15:37 Pulse 86 10/12/24 15:37 Resp 16 10/12/24 15:37 BP 125/70 10/12/24 15:37 Pulse Ox 95 10/12/24 15:37 O2 Del Method Nasal Cannula 10/12/24 15:37 O2 Flow Rate 3 10/12/24 14:27 10/12/24 10/12/24 10/12/24 06:59 14:59 22:59 Intake Total 1200 / 3060 717.5 / 717.5 Output Total 175 / 1475 400 / 400 500 / 900 Balance 1025 / 1585 317.5 / 317.5 -500 / -182.5 Weight last 48 hrs Weight 65.516 kg Weight 65.136 kg Physical Exam 2 Const: COMMON NORMALS: no acute distress and patient oriented x3 Resp: COMMON NORMALS: normal respiratory effort, No retractions, No use of accessory muscles and clear to auscultation bilaterally AUSCULTATION: clear to auscultation bilaterally Cardio: COMMON NORMALS: regular rate, regular rhythm, S1 normal heart sound present and S2 normal heart sound present RATE: regular rate RHYTHM: r egular rhythm HEART SOUNDS: S1 normal heart sound present and S2 normal heart sound present GI: COMMON NORMALS: Normal to inspection, nondistended, normoactive bowel sounds present and non-tender Extremity: COMMON NORMALS: no pedal edema Neuro: COMMON NORMALS: patient oriented x3 Urinary Catheter Management: Sheikh: Cath Placed During This Visit: yes, but has since been removed by the nurse Reason for Continuing Indwelling Catheter: Decision to DC Catheter Urinary Catheter Date of Insertion: 10/01/24 Urinary Catheter Time of Insertion: 22:19 Date Urinary Catheter Removed: 10/07/24 Time Urinary Catheter Discontinued: 15:30 Data 10/12/24 04:50 10/12/24 04:50 A&P Assessment and plan (1) Hypoxia: (2) Acute kidney injury superimposed on CKD: (3) RSV infection: (4) Urine retention: (5) Hyperkalemia: (6) Transaminitis: (7) Aspiration pneumonia: (8) Esophageal spasm: Plan Acute hypoxic respiratory failure secondary to aspiration pneumonia -CT chest CT/CT chest wo con [id number] IMPRESSION: 1. Bilateral lower lobe bronchopneumonia/bronchiolitis, worse on the right. 2. Moderate to severe bronchitis. 3. Emphysema and likely COPD. 4. Incidental findings as above. -IV meropenem -Patient looks euvolemic hold off on diuresis Leukocytosis, 33.72, neutrophilic, with blasts -Will order peripheral smear -Leukemia, lymphoma panel ordered RSV positive, RSV pneumonia, CT scan showing evidence of bronchopneumonia -Continue meropenem -DuoNeb -Budesonide Aspiration pneumonia -Modified barium swallow shows FL/FL barium swallow modifd [id number] IMPRESSION: 1. Barium tablet was retained in the distal esophagus. Underlying stricture or mass not excluded. A conventional barium swallow test is recommended for more detailed evaluation of this area. 2. No aspiration or penetration was identified otherwise. See above discussion. FL/FL barium swallow [id number] IMPRESSION: 1. Presbyesophagus. No intrinsic esophageal mass or stricture was identified. 2. Small hiatal hernia noted. -Evidence of esophageal spasms, is on dicyclomine, on diltiazem -Continue to have episodes of aspiration even on dysphagia level 4 diet, moderately thickened with episodes of choking coughing wheezing shortness of breath witnessed by nursing staff, witnessed by me, speech therapy -General Surgery consulted plans on EGD, status post EGD, with balloon dilatation of distal esophagus -Resume dysphagia level 4 diet, extremely thickened, has tolerated well so far, no aspiration events KEEGAN on CKD, improving -Nephrology consulted -IV fluids -Sodium bicarb Uremia, improving Metabolic acidosis, improving -Likely secondary renal failure -Sodium bicarb tablets Urinary retention, Sheikh catheter removed, bladder scan Right hilar abnormality: Monitor HTN: Hold off on blood pressure medications as patient's blood pressures have been soft Physical deconditioning: PT OT Hypernatremia monitor likely associated decreased oral intake given n.p.o. status, monitor Anemia: Hemoglobin 8.7, monitor CHF: Not in exacerbation monitor Hearing loss: Very hard of hearing, no hearing aids. HTN: Monitor blood pressures A-fib: Will switch to diltiazem, not on anticoagulation due to history of GI bleeds Plan for monitor p.o. feeds, white blood cell count up to 33.72, PDMP PDMP Reviewed: Not Reviewed Attestations 2 Medical Necessity Statement*: Patient requires hospitalization for acute respiratory failure sec to aspiration pneumonia, distal esophageal narrowing requiring balloon dilatation, aspiration pneumonia, KEEGAN Diagnoses Hypoxia R09.02 Acute kidney injury superimposed on CKD N17.9; N18.9 RSV infection B33.8 Urine retention R33.9 Hyperkalemia E87.5 Transaminitis R74.01 Aspiration pneumonia J69.0 Esophageal spasm K22.4
[2024-10-12 16:37] LABS: Glucose Point of Care 122 mg/dL (70-110)
[2024-10-12] MEDS: dextrose 5%-sod chloride 0.45% 1,000 ML 50 ML IV (19:57)
[2024-10-12 20:41] LABS: Glucose Point of Care 125 mg/dL (70-110)
[2024-10-13] VITALS (10 sets, daily range): BP systolic 126–134; BP diastolic 63–74; PULSE 72–77; RESP 16–20; TEMP 36.4–36.7; O2SAT 92–95
[2024-10-13] MEDS: ipratropium-albuterol 3 mL Neb INHALATION ×4 (03:15→20:20)
[2024-10-13 04:54] LABS: Basophils # 0.1 10^3/uL (0.0-0.1); Basophils % 0.2 %; Eosinophils # 0.4 10^3/uL (0.0-0.8); Eosinophils % 1.1 %; Hematocrit 30.9 % (37-53); Lymphocytes # 1.1 10^3/uL (0.8-4.8); Lymphocytes % 3.3 %; Mean Corpuscular HGB Conc 27.8 g/dL (30-55); Mean Corpuscular Hemoglobin 27.7 pg (27-33); Mean Corpuscular Volume 99.7 fl (82-101); Mean Platelet Volume 11.6 fL (7.4-10.4); Monocytes # 1.6 10^3/uL (0.2-0.9); Monocytes % 4.7 %; Neutrophils # 28.46 10^3/uL (1.8-7.7); Neutrophils % 82.4 %; Nucleated Red Blood Cells % 0.1 %; Platelet Count 140 10^3/cmm (157-399); Red Cell Distribution Width 21.1 % (12.1-15.1)
[2024-10-13] MEDS: meropenem 500 mg SDV IVP (04:58)
[2024-10-13] MEDS: dilTIAZem 30 mg Tablet PO ×4 (05:00→23:04)
[2024-10-13 05:12] LABS: Slide Review Slide Review Perform; White Blood Count 34.53 10^3/uL (3.29-11.43)
[2024-10-13 05:21] LABS: Alanine Aminotransferase 34 U/L (0-41); Albumin Level 2.8 g/dL (3.5-5.2); Alkaline Phosphatase 50 U/L (40-130); Anion Gap 14.2 (5-19); Aspartate Amino Transferase 20 U/L (0-40); Blood Urea Nitrogen 64 mg/dL (8-23); Carbon Dioxide 23 mmol/L (22-29); Chloride 114 mmol/L (98-107); Creatinine Clr Calc Pharmacy 15.0891; Globulin 1.4 g/dL (1.3-4.6); Glucose 76 mg/dL (65-115); Magnesium 2.2 mg/dL (1.7-2.3); Osmolality Calculated 319 mOsm/kg (285-295); Phosphorus 3.8 mg/dL (2.5-4.5); Potassium 5.2 mmol/L (3.5-5.1); Sodium 146 mmol/L (136-145); Total Bilirubin 0.3 mg/dL (0.15-1.2); Total Protein 4.2 g/dL (6.6-8.7)
[2024-10-13 05:29] LABS: NT Pro B Type Natriuretic Pept 1040 pg/mL (0-450)
[2024-10-13 06:53] LABS: Glucose Point of Care 93 mg/dL (70-110)
[2024-10-13] MEDS: budesonide 0.5 mg/2 mL Neb 0.25 MG INHALATION ×2 (08:52→20:20)
[2024-10-13] MEDS: sennosides-docusate Tablet 1 TAB PO (09:35)
[2024-10-13] MEDS: guaiFENesin 600 mg Tablet 1200 MG PO ×2 (09:35→17:57)
[2024-10-13] MEDS: sodium bicarbonate 650 mg Tablet PO ×2 (09:35→20:37)
[2024-10-13] MEDS: aspirin 81 mg EC Tablet PO (09:35)
[2024-10-13] MEDS: finasteride 5 mg Tablet PO (09:35)
[2024-10-13 10:05] LABS: Bilirubin Urine Negative (Negative); Blood Urine 1+ (Negative); Glucose Urine UA Trace (Normal); Ketones Urine Negative (Negative); Leukocyte Esterase Urine Negative (Negative); Nitrate Urine Negative (Negative); Protein Urine 1+ (Negative); Specific Gravity, Urine 1.014 (1.005-1.030); Urine Appearance Clear (CLEAR); Urine Color Yellow (Yellow); Urobilinogen Urine 0.2 mg/dL (Negative); pH Urine 6.5 (5-7)
[2024-10-13 10:25] LABS: Add Urine Microscopic? YES; Bacteria Urine TRACE /hpf; RBC Urine 0-4 /hpf (0-2); Squamous Epithelial Cell Urine 0-4 /hpf (0-5); UA Manual Slide Review YES; UA Slide Review UA Slide Review Perf; WBC Urine 0-4 /hpf (0-5)
[2024-10-13 10:36] LABS: Glucose Point of Care 92 mg/dL (70-110)
[2024-10-13] MEDS: dextrose 5% 1,000 ML 75 ML IV (12:47)
[2024-10-13 15:01] LABS: Anion Gap 11.2 (5-19); Blood Urea Nitrogen 63 mg/dL (8-23); Carbon Dioxide 24 mmol/L (22-29); Chloride 111 mmol/L (98-107); Glucose 119 mg/dL (65-115); Osmolality Calculated 311 mOsm/kg (285-295); Potassium 5.2 mmol/L (3.5-5.1); Sodium 141 mmol/L (136-145)
--- NOTE | 2024-10-13 15:15 | USR_ITS ---
PROCEDURE INFORMATION: Exam: US Duplex Lower Extremity Veins, Bilateral Exam date and time: 10/13/2024 4:28 PM Age: 89 years old Clinical indication: Swelling (edema) of limb; Lower extremity, bilateral TECHNIQUE: Imaging protocol: Real-time duplex ultrasound of the bilateral extremities with 2-D garcia scale, color Doppler flow and spectral waveform analysis including responses to compression and other maneuvers (when performed) with image documentation. Complete exam focused on the lower extremity veins. COMPARISON: US CV venous duplex [facility] [id number] 10/01/2024 3:56 PM FINDINGS: Right deep veins: Unremarkable. The common femoral, femoral, proximal profunda femoral and popliteal veins are patent without thrombus. Normal Doppler waveforms. Normal compressibility and/or augmentation response. Left deep veins: Unremarkable. The common femoral, femoral, proximal profunda femoral and popliteal veins are patent without thrombus. Normal Doppler waveforms. Normal compressibility and/or augmentation response. Superficial veins: Greater saphenous veins at the saphenofemoral junctions are patent bilaterally without thrombus. Soft tissues: Unremarkable. US/CV venous duplex [facility] [id number] IMPRESSION: No evidence of deep vein thrombosis.
--- NOTE | 2024-10-13 15:29 | P.PN_ITS ---
Subjective 2 Subjective: Patient was seen this morning he is alert to person, to place, and he recognized me as his physician, he can follow commands, he gives me the thumbs up he is very hard of hearing, but he tells me that he is feeling better he is breathing is better, he is happy that we have allowed him to eat, denies choking, no coughing Vitals/I&O/Wt Last Vital Signs Temp 98.0 F 10/13/24 11:30 Pulse 75 10/13/24 14:57 Resp 18 10/13/24 14:57 BP 132/63 10/13/24 11:30 Pulse Ox 95 10/13/24 14:57 O2 Del Method Nasal Cannula 10/13/24 14:57 O2 Flow Rate 2 10/13/24 14:57 10/13/24 10/13/24 10/13/24 06:59 14:59 22:59 Intake Total 0 / 1390.0 402.5 / 402.5 Output Total 650 / 2000 350 / 350 Balance -650 / -610.0 52.5 / 52.5 Weight last 48 hrs Weight 64.637 kg Weight 65.516 kg Physical Exam 2 Const: COMMON NORMALS: no acute distress ORIENTATION/CONSCIOUSNESS: Yes awake and Yes oriented to person Resp: COMMON NORMALS: normal respiratory effort, No retractions, No use of accessory muscles and clear to auscultation bilaterally AUSCULTATION: clear to auscultation bilaterally Cardio: COMMON NORMALS: regular rate, regular rhythm, S1 normal heart sound present and S2 normal heart sound present RATE: regular rate RHYTHM: r egular rhythm HEART SOUNDS: S1 normal heart sound present and S2 normal heart sound present GI: COMMON NORMALS: Normal to inspection, nondistended, normoactive bowel sounds present and non-tender Extremity: COMMON NORMALS: no pedal edema Neuro: SENSORIUM/ORIENTATION: Yes oriented to person Psych: COMMON NORMALS: mental status grossly normal Urinary Catheter Management: Sheikh: Cath Placed During This Visit: yes, but has since been removed by the nurse Reason for Continuing Indwelling Catheter: Decision to DC Catheter Urinary Catheter Date of Insertion: 10/01/24 Urinary Catheter Time of Insertion: 22:19 Date Urinary Catheter Removed: 10/07/24 Time Urinary Catheter Discontinued: 15:30 Data 10/13/24 04:08 02/22/25 14:30 A&P Assessment and plan (1) Hypoxia: (2) Acute kidney injury superimposed on CKD: (3) RSV infection: (4) Urine retention: (5) Hyperkalemia: (6) Transaminitis: (7) Aspiration pneumonia: (8) Esophageal spasm: Plan Acute hypoxic respiratory failure secondary to aspiration pneumonia -CT chest CT/CT chest wo con [id number] IMPRESSION: 1. Bilateral lower lobe bronchopneumonia/bronchiolitis, worse on the right. 2. Moderate to severe bronchitis. 3. Emphysema and likely COPD. 4. Incidental findings as above. -IV meropenem -Patient looks euvolemic hold off on diuresis -Repeat Leukocytosis, 34.53, neutrophilic, with blasts -Will order peripheral smear -Leukemia, lymphoma panel ordered -Afebrile -Studies ordered for C. difficile -Repeat UA no UTI -Chest x-ray no acute findings -CRP 11 RSV positive, RSV pneumonia, CT scan showing evidence of bronchopneumonia -Continue meropenem -DuoNeb -Budesonide Aspiration pneumonia -Modified barium swallow shows FL/FL barium swallow modifd [id number] IMPRESSION: 1. Barium tablet was retained in the distal esophagus. Underlying stricture or mass not excluded. A conventional barium swallow test is recommended for more detailed evaluation of this area. 2. No aspiration or penetration was identified otherwise. See above discussion. FL/FL barium swallow [id number] IMPRESSION: 1. Presbyesophagus. No intrinsic esophageal mass or stricture was identified. 2. Small hiatal hernia noted. -Evidence of esophageal spasms, is on dicyclomine, on diltiazem -Continue to have episodes of aspiration even on dysphagia level 4 diet, moderately thickened with episodes of choking coughing wheezing shortness of breath witnessed by nursing staff, witnessed by me, speech therapy -General Surgery consulted plans on EGD, status post EGD, with balloon dilatation of distal esophagus -Resume dysphagia level 4 diet, extremely thickened, has tolerated well so far, no aspiration events KEEGAN on CKD, improving -Nephrology consulted -IV fluids Uremia, improving Metabolic acidosis, improving -Likely secondary renal failure -Sodium bicarb tablets Urinary retention, Sheikh catheter removed, bladder scan Right hilar abnormality: Monitor HTN: Hold off on blood pressure medications as patient's blood pressures have been soft Physical deconditioning: PT OT Hypernatremia monitor likely associated decreased oral intake given n.p.o. status, monitor Anemia: Hemoglobin 8.7, monitor CHF: Not in exacerbation monitor Hearing loss: Very hard of hearing, no hearing aids. HTN: Monitor blood pressures A-fib: Will switch to diltiazem, not on anticoagulation due to history of GI bleeds Plan for monitor p.o. feeds, white blood cell count up to 33.72, PDMP PDMP Reviewed: Not Reviewed Attestations 2 Medical Necessity Statement*: Patient requires hospitalization for aspiration pneumonia, with no persistent leukocytosis, KEEGAN Diagnoses Hypoxia R09.02 Acute kidney injury superimposed on CKD N17.9; N18.9 RSV infection B33.8 Urine retention R33.9 Hyperkalemia E87.5 Transaminitis R74.01 Aspiration pneumonia J69.0 Esophageal spasm K22.4
[2024-10-13 16:40] LABS: Glucose Point of Care 107 mg/dL (70-110)
--- NOTE | 2024-10-13 19:48 | P.PN_ITS ---
Subjective 2 Subjective: events noted Medications: Reviewed: Yes Vitals/I&O/Wt Last Vital Signs Temp 98.0 F 10/13/24 11:30 Pulse 75 10/13/24 14:57 Resp 18 10/13/24 14:57 BP 132/63 10/13/24 11:30 Pulse Ox 95 10/13/24 14:57 O2 Del Method Nasal Cannula 10/13/24 14:57 O2 Flow Rate 2 10/13/24 14:57 10/13/24 10/13/24 10/13/24 06:59 14:59 22:59 Intake Total 0 / 1390.0 402.5 / 402.5 120 / 522.5 Output Total 650 / 2000 350 / 350 300 / 650 Balance -650 / -610.0 52.5 / 52.5 -180 / -127.5 Weight last 48 hrs Weight 64.637 kg Weight 65.516 kg Physical Exam 2 Narrative: Awake alert, no distress PERRLA Decreased breath sound bilaterally per report S1-S2 regular rate and rhythm per report Abdomen soft nontender per report Bipedal edema Urinary Catheter Management: Sheikh: Cath Placed During This Visit: yes, but has since been removed by the nurse Reason for Continuing Indwelling Catheter: Decision to DC Catheter Urinary Catheter Date of Insertion: 10/01/24 Urinary Catheter Time of Insertion: 22:19 Date Urinary Catheter Removed: 10/07/24 Time Urinary Catheter Discontinued: 15:30 Data 10/13/24 04:08 10/13/24 14:30 A&P Assessment and plan (1) Acute on chronic kidney failure: Acute on chronic kidney disease stage IV: Baseline creatinine in the 3 range about a year ago, now has KEEGAN with a creatinine up to 4.6, I suspect there is some progression of CKD and possibly ATN in the setting of acute infection. UA with 1+ protein 1+ blood and no microscopic hematuria, Will check urine electrolytes and renal ultrasound Renal function currently stable Creatinine stable , no acute indication for dialysis Hyperkalemia: Medically managing, low potassium diet Increased anion gap metabolic acidosis: In the setting of KEEGAN, improved Acute on chronic respiratory failure: On home O2 3 L, now has aspiration pneumonia and RSV, stable currently Anemia: Check iron studies, s/p DEVON History of hypertension: Blood pressure stable Patient evaluated using audiovisual cart. Time spent 40 minutes. Plan per medicne PDMP PDMP Reviewed: Not Reviewed Attestations 2 Medical Necessity Statement*: per [facility] Coding Level of Care Code Acute Code for Chg Fwd Diagnoses Acute on chronic kidney failure N17.9; N18.9
[2024-10-13 20:44] LABS: Glucose Point of Care 115 mg/dL (70-110)
[2024-10-14] VITALS (11 sets, daily range): BP systolic 126–188; BP diastolic 50–70; PULSE 72–87; RESP 16–22; TEMP 36.6–36.7; O2SAT 92–96
[2024-10-14] MEDS: ipratropium-albuterol 3 mL Neb INHALATION ×4 (02:23→20:17)
[2024-10-14] MEDS: meropenem 500 mg SDV IVP (02:49)
[2024-10-14] MEDS: dextrose 5% 1,000 ML 75 ML IV ×2 (04:21→18:26)
[2024-10-14] MEDS: dilTIAZem 30 mg Tablet PO ×4 (05:44→23:17)
[2024-10-14 06:04] LABS: Hematocrit 28.3 % (37-53); Mean Corpuscular HGB Conc 29.3 g/dL (30-55); Mean Corpuscular Hemoglobin 28.1 pg (27-33); Mean Corpuscular Volume 95.9 fl (82-101); Mean Platelet Volume 11.1 fL (7.4-10.4); Platelet Count 116 10^3/cmm (157-399); Red Blood Count 2.95 10^6/uL (3.85-5.65); Red Cell Distribution Width 20.6 % (12.1-15.1)
[2024-10-14 06:30] LABS: Glucose Point of Care 108 mg/dL (70-110)
[2024-10-14 06:31] LABS: Alanine Aminotransferase 31 U/L (0-41); Albumin Level 2.5 g/dL (3.5-5.2); Alkaline Phosphatase 53 U/L (40-130); Blood Urea Nitrogen 56 mg/dL (8-23); C Reactive Protein 11.5 mg/L (0.0-4.9); Calcium 8.1 mg/dL (8.5-10.5); Carbon Dioxide 24 mmol/L (22-29); Chloride 109 mmol/L (98-107); Globulin 2.1 g/dL (1.3-4.6); Glucose 103 mg/dL (65-115); NT Pro B Type Natriuretic Pept 913 pg/mL (0-450); Osmolality Calculated 308 mOsm/kg (285-295); Sodium 141 mmol/L (136-145); Total Bilirubin 0.3 mg/dL (0.15-1.2); Total Protein 4.6 g/dL (6.6-8.7)
[2024-10-14 06:32] LABS: Creatinine Clr Calc Pharmacy 15.1469
[2024-10-14 06:33] LABS: Anion Gap 13.1 (5-19); Aspartate Amino Transferase 24 U/L (0-40); Potassium 5.1 mmol/L (3.5-5.1)
[2024-10-14 06:47] LABS: Slide Review Slide Review Perform
[2024-10-14 06:48] LABS: White Blood Count 31.52 10^3/uL (3.29-11.43)
[2024-10-14 06:49] LABS: Absolute Eosinophils 0.3 10^3/cmm (0.0-0.7); Absolute Segmented Neutrophil 25.2 10/cmm (1.6-7.1); Band Neutrophils Absolute 1.3 10^3/cmm (0.0-1.2); Eosinophils 1 %; Lymphocytes 7 %; Lymphocytes Absolute 2.2 10^3/cmm (1.2-3.4); Monocytes Absolute 0.3 10^3/cmm (0.1-0.6); Segmented Neutrophils 80 %; Total Cells Counted 100 (0-100)
[2024-10-14 06:50] LABS: Absolute Neutrophil 26.5 10^3/cmm (1.4-6.5); Anisocytosis 2+; Platelet Estimate Normal (Normal); Poikilocytosis 1+
[2024-10-14] MEDS: budesonide 0.5 mg/2 mL Neb 0.25 MG INHALATION ×2 (08:20→20:16)
[2024-10-14] MEDS: sodium bicarbonate 650 mg Tablet PO ×3 (09:56→20:39)
[2024-10-14] MEDS: finasteride 5 mg Tablet PO (09:56)
[2024-10-14] MEDS: sennosides-docusate Tablet 1 TAB PO (09:56)
[2024-10-14] MEDS: guaiFENesin 600 mg Tablet 1200 MG PO ×2 (09:56→18:26)
[2024-10-14] MEDS: aspirin 81 mg EC Tablet PO (09:56)
--- NOTE | 2024-10-14 11:20 | P.PN_ITS ---
Subjective 2 Subjective: events noted Medications: Reviewed: Yes Vitals/I&O/Wt Last Vital Signs Temp 98.1 F 10/14/24 07:43 Pulse 82 10/14/24 08:36 Resp 18 10/14/24 08:20 BP 171/63 10/14/24 07:43 Pulse Ox 92 10/14/24 08:20 O2 Del Method Nasal Cannula 10/14/24 08:20 O2 Flow Rate 2 10/14/24 08:20 10/13/24 10/14/24 10/14/24 22:59 06:59 14:59 Intake Total 120 / 522.5 1000 / 1522.5 120 / 120 Output Total 300 / 650 550 / 1200 Balance -180 / -127.5 450 / 322.5 120 / 120 Weight last 48 hrs Weight 65.317 kg Weight 64.637 kg Physical Exam 2 Narrative: Awake alert, no distress PERRLA Decreased breath sound bilaterally per report S1-S2 regular rate and rhythm per report Abdomen soft nontender per report Bipedal edema Urinary Catheter Management: Sheikh: Cath Placed During This Visit: yes, but has since been removed by the nurse Reason for Continuing Indwelling Catheter: Decision to DC Catheter Urinary Catheter Date of Insertion: 10/01/24 Urinary Catheter Time of Insertion: 22:19 Date Urinary Catheter Removed: 10/07/24 Time Urinary Catheter Discontinued: 15:30 Data 10/14/24 05:14 10/14/24 05:14 A&P Assessment and plan (1) Acute on chronic kidney failure: Acute on chronic kidney disease stage IV: Baseline creatinine in the 3 range about a year ago, now has KEEGAN with a creatinine up to 4.6, I suspect there is some progression of CKD and possibly ATN in the setting of acute infection. UA with 1+ protein 1+ blood and no microscopic hematuria, Will check urine electrolytes and renal ultrasound Renal function currently stable Creatinine stable , no acute indication for dialysis Hyperkalemia: Medically managing, low potassium diet Increased anion gap metabolic acidosis: In the setting of KEEGAN, improved Acute on chronic respiratory failure: On home O2 3 L, now has aspiration pneumonia and RSV, stable currently Anemia: Check iron studies, s/p DEVON History of hypertension: Blood pressure stable Patient evaluated using audiovisual cart. Time spent 40 minutes. Plan per medicne PDMP PDMP Reviewed: Not Reviewed Attestations 2 Medical Necessity Statement*: per [facility] Coding Level of Care Code Acute Code for Chg Fwd Diagnoses Acute on chronic kidney failure N17.9; N18.9
[2024-10-14 11:21] LABS: Glucose Point of Care 114 mg/dL (70-110)
[2024-10-14 13:50] LABS: Erythrocyte Sedimentation Rate < 1 mm/hr (0-10)
[2024-10-14 16:43] LABS: Glucose Point of Care 117 mg/dL (70-110)
--- NOTE | 2024-10-14 16:53 | P.PN_ITS ---
Subjective 2 Subjective: Patient was seen this morning has no significant complaints this morning, afebrile overnight, requiring 2 L Vitals/I&O/Wt Last Vital Signs Temp 98.1 F 10/14/24 11:22 Pulse 77 10/14/24 13:53 Resp 18 10/14/24 13:45 BP 188/50 10/14/24 11:22 Pulse Ox 96 10/14/24 13:45 O2 Del Method Nasal Cannula 10/14/24 13:45 O2 Flow Rate 2 10/14/24 13:45 10/14/24 10/14/24 10/14/24 06:59 14:59 22:59 Intake Total 1000 / 1522.5 120 / 120 Output Total 550 / 1200 300 / 300 Balance 450 / 322.5 120 / 120 -300 / -180 Weight last 48 hrs Weight 65.317 kg Weight 64.637 kg Physical Exam 2 Const: COMMON NORMALS: no acute distress Resp: COMMON NORMALS: normal respiratory effort, No retractions and No use of accessory muscles AUSCULTATION: crackles and wheezes Cardio: COMMON NORMALS: regular rate, regular rhythm, S1 normal heart sound present and S2 normal heart sound present RATE: regular rate RHYTHM: r egular rhythm HEART SOUNDS: S1 normal heart sound present and S2 normal heart sound present GI: COMMON NORMALS: Normal to inspection, nondistended, normoactive bowel sounds present and non-tender Extremity: COMMON NORMALS: no pedal edema Urinary Catheter Management: Sheikh: Cath Placed During This Visit: yes, but has since been removed by the nurse Reason for Continuing Indwelling Catheter: Decision to DC Catheter Urinary Catheter Date of Insertion: 10/01/24 Urinary Catheter Time of Insertion: 22:19 Date Urinary Catheter Removed: 10/07/24 Time Urinary Catheter Discontinued: 15:30 Data 10/14/24 05:14 10/14/24 05:14 A&P Assessment and plan (1) Hypoxia: (2) Acute kidney injury superimposed on CKD: (3) RSV infection: (4) Urine retention: (5) Hyperkalemia: (6) Transaminitis: (7) Aspiration pneumonia: (8) Esophageal spasm: Plan Acute hypoxic respiratory failure secondary to aspiration pneumonia -CT chest CT/CT chest wo con [id number] IMPRESSION: 1. Bilateral lower lobe bronchopneumonia/bronchiolitis, worse on the right. 2. Moderate to severe bronchitis. 3. Emphysema and likely COPD. 4. Incidental findings as above. -De-escalate to Augmentin -Patient looks euvolemic hold off on diuresis -Repeat Leukocytosis, 34.53, neutrophilic, with blasts -Will order peripheral smear -Leukemia, lymphoma panel ordered -LDH, haptoglobin -Platelet count 116, hemoglobin 8.3 -Afebrile -Studies ordered for C. difficile negative -Repeat UA no UTI -Chest x-ray no acute findings -CRP 11, ESR less than 1 -Monitor off antibiotics RSV positive, RSV pneumonia, CT scan showing evidence of bronchopneumonia -DuoNeb -Budesonide Aspiration pneumonia -Modified barium swallow shows FL/FL barium swallow modifd [id number] IMPRESSION: 1. Barium tablet was retained in the distal esophagus. Underlying stricture or mass not excluded. A conventional barium swallow test is recommended for more detailed evaluation of this area. 2. No aspiration or penetration was identified otherwise. See above discussion. FL/FL barium swallow [id number] IMPRESSION: 1. Presbyesophagus. No intrinsic esophageal mass or stricture was identified. 2. Small hiatal hernia noted. -Evidence of esophageal spasms, is on dicyclomine, on diltiazem -Continue to have episodes of aspiration even on dysphagia level 4 diet, moderately thickened with episodes of choking coughing wheezing shortness of breath witnessed by nursing staff, witnessed by me, speech therapy -General Surgery consulted plans on EGD, status post EGD, with balloon dilatation of distal esophagus -Resume dysphagia level 4 diet, extremely thickened, has tolerated well so far, no aspiration events KEEGAN on CKD, improving -Nephrology consulted -IV fluids Uremia, improving Metabolic acidosis, improving -Likely secondary renal failure -Sodium bicarb tablets Urinary retention, Sheikh catheter removed, bladder scan Right hilar abnormality: Monitor HTN: Hold off on blood pressure medications as patient's blood pressures have been soft Physical deconditioning: PT OT Hypernatremia resolved Anemia: Hemoglobin 8.7, monitor CHF: Not in exacerbation monitor Hearing loss: Very hard of hearing, no hearing aids. HTN: Monitor blood pressures A-fib: Will switch to diltiazem, not on anticoagulation due to history of GI bleeds Plan for today monitor hemoglobin, monitor platelet count monitor white blood cell count PDMP PDMP Reviewed: Not Reviewed Attestations 2 Medical Necessity Statement*: Patient requires hospitalization for leukocytosis of undetermined etiology Diagnoses Hypoxia R09.02 Acute kidney injury superimposed on CKD N17.9; N18.9 RSV infection B33.8 Urine retention R33.9 Hyperkalemia E87.5 Transaminitis R74.01 Aspiration pneumonia J69.0 Esophageal spasm K22.4
[2024-10-14 17:36] LABS: Lactate Dehydrogenase 435 U/L (135-225)
[2024-10-14] MEDS: amoxicillin-clav 875-125 mg Tablet 1 TAB PO (18:26)
[2024-10-14 20:56] LABS: Glucose Point of Care 127 mg/dL (70-110)
[2024-10-15 01:39] LABS: Basophils # 0.1 10^3/uL (0.0-0.1); Basophils % 0.4 %; Eosinophils # 0.3 10^3/uL (0.0-0.8); Eosinophils % 0.9 %; Lymphocytes # 1.4 10^3/uL (0.8-4.8); Mean Corpuscular HGB Conc 30.4 g/dL (30-55); Mean Corpuscular Hemoglobin 27.8 pg (27-33); Mean Corpuscular Volume 91.5 fl (82-101); Mean Platelet Volume 11.4 fL (7.4-10.4); Monocytes # 1.8 10^3/uL (0.2-0.9); Monocytes % 5.3 %; Neutrophils # 28.68 10^3/uL (1.8-7.7); Neutrophils % 82.9 %; Nucleated Red Blood Cells # 0.1 /100WBC; Nucleated Red Blood Cells % 0.2 %; Platelet Count 157 10^3/cmm (157-399); Red Blood Count 3.06 10^6/uL (3.85-5.65); Red Cell Distribution Width 20.3 % (12.1-15.1)
[2024-10-15 01:42] LABS: Slide Review Slide Review Perform
[2024-10-15 01:43] LABS: White Blood Count 34.59 10^3/uL (3.29-11.43)
[2024-10-15 01:57] LABS: Alanine Aminotransferase 33 U/L (0-41); Albumin Level 2.6 g/dL (3.5-5.2); Alkaline Phosphatase 63 U/L (40-130); Anion Gap 12.2 (5-19); Aspartate Amino Transferase 23 U/L (0-40); Blood Urea Nitrogen 51 mg/dL (8-23); C Reactive Protein 11.1 mg/L (0.0-4.9); Carbon Dioxide 25 mmol/L (22-29); Chloride 105 mmol/L (98-107); Creatinine Clr Calc Pharmacy 16.0935; Glucose 92 mg/dL (65-115); Osmolality Calculated 297 mOsm/kg (285-295); Potassium 5.2 mmol/L (3.5-5.1); Sodium 137 mmol/L (136-145); Total Bilirubin 0.4 mg/dL (0.15-1.2); Total Protein 4.6 g/dL (6.6-8.7)
[2024-10-15 02:02] LABS: Procalcitonin 0.26 ng/mL (0-0.5)
[2024-10-15 02:30] VITALS: PULSE 73; RESP 16; O2SAT 96
[2024-10-15] MEDS: ipratropium-albuterol 3 mL Neb INHALATION ×2 (02:35→09:05)
[2024-10-15 04:00] VITALS: BP 125/64; PULSE 70; RESP 19; TEMP 36.3; O2SAT 91
[2024-10-15 04:27] LABS: C.Diff PCR (Lab) NEGATIVE (Negative)
[2024-10-15] MEDS: dilTIAZem 30 mg Tablet PO ×2 (05:10→11:08)
[2024-10-15 06:26] LABS: Glucose Point of Care 112 mg/dL (70-110)
[2024-10-15 07:48] VITALS: BP 135/60; PULSE 72; RESP 18; TEMP 37.2; O2SAT 97
[2024-10-15] MEDS: sodium bicarbonate 650 mg Tablet PO (08:11)
[2024-10-15] MEDS: sennosides-docusate Tablet 1 TAB PO (08:11)
[2024-10-15] MEDS: dextrose 5% 1,000 ML 75 ML IV (08:11)
[2024-10-15] MEDS: finasteride 5 mg Tablet PO (08:11)
[2024-10-15] MEDS: guaiFENesin 600 mg Tablet 1200 MG PO (08:11)
[2024-10-15] MEDS: amoxicillin-clav 875-125 mg Tablet 1 TAB PO (08:11)
[2024-10-15] MEDS: aspirin 81 mg EC Tablet PO (08:11)
[2024-10-15 09:05] VITALS: PULSE 80; RESP 20; O2SAT 97
[2024-10-15] MEDS: budesonide 0.5 mg/2 mL Neb 0.25 MG INHALATION (09:05)
[2024-10-15] MEDS: sodium polystyrene sulfonate 15 gm/60 mL Btl PO (09:36)
--- NOTE | 2024-10-15 09:53 | PM.PN ---
Subjective Subjective: no new c/o Medications: Reviewed: Yes Vitals/I&O/Wt Last Vital Signs Temp 99.0 F 10/15/24 07:48 Pulse 80 10/15/24 09:05 Resp 20 H 10/15/24 09:05 BP 135/60 10/15/24 07:48 Pulse Ox 97 10/15/24 09:05 O2 Del Method Nasal Cannula 10/15/24 09:05 O2 Flow Rate 2 10/15/24 09:05 10/14/24 10/15/24 10/15/24 22:59 06:59 14:59 Intake Total 1340 / 1460 1240 / 1240 Output Total 675 / 675 525 / 1200 200 / 200 Balance 665 / 785 -525 / 260 1040 / 1040 Weight last 48 hrs Weight 63.367 kg Weight 65.317 kg Physical Exam Narrative: Awake alert, no distress PERRLA Decreased breath sound bilaterally per report S1-S2 regular rate and rhythm per report Abdomen soft nontender per report Bipedal edema Urinary Catheter Management: Sheikh: Cath Placed During This Visit: yes, but has since been removed by the nurse Reason for Continuing Indwelling Catheter: Decision to DC Catheter Urinary Catheter Date of Insertion: 10/01/24 Urinary Catheter Time of Insertion: 22:19 Date Urinary Catheter Removed: 10/07/24 Time Urinary Catheter Discontinued: 15:30 Data 10/15/24 01:24 10/15/24 01:24 Micro: Microbiology 10/15/24 01:27 Blood Culture - Preliminary Blood SPECIMEN COLLECTED 10/15/24 01:24 Blood Culture - Preliminary Blood SPECIMEN COLLECTED A&P Assessment and plan (1) Acute on chronic kidney failure: Acute on chronic kidney disease stage IV: Baseline creatinine in the 3 range about a year ago, now has KEEGAN with a creatinine up to 4.6, I suspect there is some progression of CKD and possibly ATN in the setting of acute infection. UA with 1+ protein 1+ blood and no microscopic hematuria, Renal function currently stable Creatinine stable , no acute indication for dialysis Hyperkalemia: Medically managing, low potassium diet Increased anion gap metabolic acidosis: In the setting of KEEGAN, improved Acute on chronic respiratory failure: On home O2 3 L, now has aspiration pneumonia and RSV, stable currently Anemia: Check iron studies, s/p DEVON History of hypertension: Blood pressure stable Patient evaluated using audiovisual cart. Time spent 40 minutes. Plan per medicne PDMP PDMP Reviewed: Not Reviewed Attestations Medical Necessity Statement*: per [facility] Coding Level of Care Code Acute Code for Chg Fwd Diagnoses Acute on chronic kidney failure N17.9; N18.9
--- NOTE | 2024-10-15 09:58 | CT_ITS ---
WS: [id number] CT CHEST, ABDOMEN, AND PELVIS TECHNIQUE: Noncontrast CT of the chest, abdomen, and pelvis with coronal and sagittal reformatted images. CLINICAL INFORMATION: leukocytosis of undetermined etiology COMPARISON: 10/08/2024 DLP: 708.[address] scans at [facility] use at least one of these dose optimization techniques: automated exposure control; mA and/or kV adjustment per patient size (includes targeted exams where dose is matched to clinical indication); or iterative reconstruction. CT CHEST: Chronic emphysematous changes. Bibasilar atelectasis. Trace RIGHT pleural fluid. No focal consolidation. Aortic calcification. Coronary calcification. No mediastinal or hilar lymphadenopathy. No axillary lymphadenopathy. Mild thoracic curve. CT ABDOMEN AND PELVIS: Dense barium visualized in the colon from recent barium swallow. Vicarious excretion of contrast in the gallbladder. Normal noncontrast liver. Renal atrophy. Bilateral renal cysts. No hydronephrosis. Normal noncontrast spleen. Noncontrast pancreas appears normal. Aortic calcification. Urine distended b ladder. Enlarged prostate. Partially visualized RIGHT hydrocele. Distended bladder no other acute findings. CT/[place] [id number] IMPRESSION: 1. Trace RIGHT pleural fluid. RIGHT basilar atelectasis. 2. No acute findings in the abdomen or pelvis
[2024-10-15 11:28] LABS: Glucose Point of Care 112 mg/dL (70-110)
[2024-10-15 12:00] VITALS: BP 128/57; PULSE 72; RESP 18; TEMP 36.8; O2SAT 94
--- NOTE | 2024-10-15 13:02 | PC.NURSE ---
Pt bladder scanned per Dr. Bernard. Scan showed 157ml of urine in the bladder. Dr. Bernard advised.
--- NOTE | 2024-10-15 13:08 | P.DS_ITS ---
Discharge Providers Date of Admission: 10/02/24 11:51 Date of Discharge: October 15, 2024 Attending Provider at Admission: Rory Sage Attending Provider at Discharge: Joshua Bernard MD Primary Care Provider: Adama Olmedo MD Diagnoses at Discharge Discharge Diagnosis (1) Acute on chronic kidney failure: Status: Acute Reason for Visit Reason for Visit: SOB Hospital Course Hospital Course This is a 89-year-old male with a past medical history very hard of hearing, does not have hearing aids, COPD, history of recurrent UTIs who presents to [facility] for KEEGAN, shortness of breath, hypoxia, RSV infection, urin breanna retention, transaminitis Patient had a prolonged hospitalization please look at my last progress note for detail For patient's RSV pneumonia, CT scan showing evidence of bronchopneumonia, received nebulizer therapy, steroid therapy overall clinically improved Patient's hospitalization was complicated by acute hypoxic respiratory failure secondary to aspiration pneumonia -Patient had a modified barium swallow FL/FL barium swallow modifd [id number] IMPRESSION: 1. Barium tablet was retained in the distal esophagus. Underlying stricture or mass not excluded. A conventional barium swallow test is recommended for more detailed evaluation of this area. 2. No aspiration or penetration was identified otherwise. See above discussion. FL/FL barium swallow [id number] IMPRESSION: 1. Presbyesophagus. No intrinsic esophageal mass or stricture was identified. 2. Small hiatal hernia noted. -Evidence of esophageal spasms, is on dicyclomine, on diltiazem -Continue to have episodes of aspiration even on dysphagia level 4 diet, moderately thickened with episodes of choking coughing wheezing shortness of breath witnessed by nursing staff, witnessed by me, speech therapy -General Surgery consulted plans on EGD, status post EGD, with balloon dilatation of distal esophagus -Resume dysphagia level 4 diet, extremely thickened, has tolerated well so far, no aspiration events -Patient was monitored on a dysphagia level 4 diet, extremely thickened, status post EGD with dilatation, overall clinically improved, no recurrent aspiration events -Nonetheless I have kept him on dicyclomine as needed, switch him to diltiazem, tolerated well -Follow-up with general surgery in 2 to 4 weeks for consideration repeat dilatation Patient's hospitalization was complicated by KEEGAN on CKD, nephrology consulted received IV fluids likely progression of underlying CKD ? Monitor renal function as outpatient ? Follow-up with nephrology as outpatient Presented with acute urinary retention, his Sheikh catheter was removed, managed on finasteride, Flomax ? On discharge his postvoid residual is about 60 cc ? Monitor for urinary retention as outpatient -Patient does have evidence of enlarged prostate, needs to follow-up with urology Uremia improved with IV fluids Hypernatremia, improved with fluids Acute on chronic anemia monitor Acute thrombocytopenia, monitor Patient's hospitalization was complicated by leukocytosis, white blood cell count up to 34,000, neutrophilic -Patient had differential on 10/12 that showed blast -Remained afebrile, normotensive -Chest x-ray showed no significant findings -Venous ultrasound negative for DVT -UA within normal limits -Blood cultures so far no growth ? [place] CT scan abdomen pelvis had no acute findings -Haptoglobin within normal limits -LDH 435 -Peripheral smear shows marked leukocytosis with relative absolute neutrophilia, mild to moderate left shift, rare eosinophils, no circulating blasts or overtly atypical lymphocytes -Worry is is that patient is neutrophilic leukocytosis might be related to leukemia versus lymphoma -He is blood cultures are pending, but no growth so far, and he has been afe brile and overall clinically his respiratory status has improved -I have ordered lymphoma panel, leukemia panel ordered follow-up with oncology as outpatient -I spoke to patient's son about this, he voiced understanding, all questions answered On discharge I have gone over everything with Jimenez however I do not feel that he has good understanding about the complexity of his underlying medical pr oblems I spoke to patient's son about all above, had a detailed discussion with him, overall general needs to follow-up with hematology oncology as outpatient and his CBC needs to be monitored, he needs to be kept on a dysphagia level 4 diet sverely thickened, needs to follow-up with general surgery, and needs to follow- up with urology for his urinary retention and monitoring In terms of mentation Jimenez is very hard of hearing but he can understand if you speak closely to his ear, he is alert to person, to place, not to time, he can follow some commands but does have episodes of confusion, I was able to communicate with him via writing but I feel that he also has difficulty reading. During our multiple discussions, also in writing, I had a sense that Jimenez really does not understand the complexity of his renal failure, his aspiration, his leukocytosis. Nonetheless I have gone over everything with the patient's son. Physical Exam Const: COMMON NORMALS: no acute distress ORIENTATION/CONSCIOUSNESS: Yes awake, Yes oriented to person and Yes oriented to place; not oriented to time Resp: COMMON NORMALS: normal respiratory effort, No retractions, No use of accessory muscles and clear to auscultation bilaterally AUSCULTATION: clear to auscultation bilaterally Cardio: COMMON NORMALS: regular rate, regular rhythm, S1 normal heart sound present and S2 normal heart sound present RATE: regular rate RHYTHM: regular rhythm HEART SOUNDS: S1 normal heart sound present and S2 normal heart sound present GI: COMMON NORMALS: Normal to inspection, nondistended, normoactive bowel sounds present and non-tender Extremity: COMMON NORMALS: no pedal edema Neuro: SENSORIUM/ORIENTATION: Yes oriented to person, Yes oriented to place and No oriented to time Psych: COMMON NORMALS: mental status grossly normal Urinary Catheter Management: Sheikh: Cath Placed During This Visit: yes, but has since been removed by the nurse Reason for Continuing Indwelling Catheter: Decision to DC Catheter Urinary Catheter Date of Insertion: 10/01/24 Urinary Catheter Time of Insertion: 22:19 Date Urinary Catheter Removed: 10/07/24 Time Urinary Catheter Discontinued: 15:30 Discharge Data Studies Completed and Pending Completed Studies During Hospitalization Category Date Time Status CT abdomen pelvis wo con [id number] Stat Cat Scan 10/01/24 12:[address] chest abdomen pelvis [[place] [id number] Cat Scan 10/15/24 09:58 Completed ] Stat CT chest con [id number] Routine Cat Scan 10/08/24 12:05 Completed CXRP [XR chest 1V portable [id number]] Routine Exams 10/03/24 15:29 Completed [place] barium swallow [id number] Stat Exams 10/08/24 12:05 Completed FL barium swallow modifd [id number] Routine Exams 10/08/24 11:55 Completed XR chest 1V portable [id number] Routine Exams 10/12/24 07:00 Completed XR chest 1V portable [id number] Stat Exams 10/01/24 10:13 [place] [id number] Routine Ultrasound 10/01/24 15:17 [place] [id number] Routine Ultrasound 10/13/24 15:15 Completed Pending at discharge Category Date Time Status Blood Culture Stat Lab 10/14/24 08:29 Results C Reactive Protein AM LABS Lab 10/16/24 04:00 Ordered C Reactive Protein AM LABS Lab 10/17/24 04:00 Ordered C.Diff PCR (Lab) Routine Lab 10/11/24 08:34 Ordered Complete Blood Count w/Auto AM LABS Lab 10/16/24 04:00 Ordered Complete Blood Count w/Auto AM LABS Lab 10/17/24 04:00 Ordered Comprehensive Metabolic Panel AM LABS Lab 10/16/24 04:00 Ordered Comprehensive Metabolic Panel AM LABS Lab 10/17/24 04:00 Ordered Procalcitonin AM LABS Lab 10/16/24 04:00 Ordered Procalcitonin AM LABS Lab 10/17/24 04:00 Ordered Sputum Culture and Gram Stain Routine Lab 10/01/24 15:17 Uncollected Radiology Impressions Abdomen/Pelvis CT 10/01/24 12:04 IMPRESSION: Images in the upper abdomen degraded by motion 1. Bilateral renal cortical atrophy. No hydronephrosis. 2. Urine distended bladder with bladder outlet obstruction. 3. Enlarged prostate measuring 4.5 cm. Recommend correlation PSA. 4. Extensive sigmoid diverticulosis. 5. Small esophageal hiatal hernia. 6. Bilateral renal cysts. 7. RIGHT colon and hepatic constipation. 8. Partially visualized RIGHT scrotal hydrocele. This is similar to previous. Modified Barium Swallow 10/08/24 11:55 IMPRESSION: 1. Barium tablet was retained in the distal esophagus. Underlying stricture or mass not excluded. A conventional barium swallow test is recommended for more de tailed evaluation of this area. 2. No aspiration or penetration was identified otherwise. See above discussion. A separate report and recommendations will follow from the speech therapy service. Barium Swallow X-Ray 10/08/24 12:05 IMPRESSION: 1. Presbyesophagus. No intrinsic esophageal mass or stricture was identified. 2. Small hiatal hernia noted. Chest CT 10/08/24 12:05 IMPRESSION: 1. Bilateral lower lobe bronchopneumonia/bronchiolitis, worse on the right. 2. Moderate to severe bronchitis. 3. Emphysema and likely COPD. 4. Incidental findings as above. COMMENTS: Consistent with the [place] [employer]'s Incidental Findings Committee white paper (J Am Chacho Radiol 2018): Any incidental renal lesion less than 1 cm or classified as too small to characterize, or any incidental cystic renal lesion characterized as simple-appearing, is likely benign. No follow-up imaging is recommended for these lesions per consensus recommendations based on imaging criteria. Chest X-Ray 10/12/24 07:00 IMPRESSION: 1. No acute cardiopulmonary finding. Venous Duplex 10/13/24 15:15 IMPRESSION: No evidence of deep vein thrombosis. Chest/Abdomen/Pelvis CT 10/15/24 09:58 IMPRESSION: 1. Trace RIGHT pleural fluid. RIGHT basilar atelectasis. 2. No acute findings in the abdomen or pelvis Laboratory Results WBC 34.59 10^3/uL (3.29-11.43) H* 10/15/24 01:24 RBC 3.06 10^6/uL (3.85-5.65) L 10/15/24 01:24 Hgb 8.50 g/dL (11.27-16.99) L 10/15/24 01:24 Hct 28.0 % (37-53) L 10/15/24 01:24 MCV 91.5 fl (82-101) 10/15/24 01:24 MCH 27.8 pg (27-33) 10/15/24 01:24 MCHC 30.4 g/dL (30-55) 10/15/24 01:24 RDW 20.3 % (12.1-15.1) H 10/15/24 01:24 Plt Count 157 10^3/cmm (157-399) D 10/15/24 01:24 MPV 11.4 fL (7.4-10.4) H 10/15/24 01:24 Neut % (Auto) 82.9 % 10/15/24 01:24 Lymph % (Auto) 4.0 % 10/15/24 01:24 [place] % (Auto) 5.3 % 10/15/24 01:24 Eos % (Auto) 0.9 % 10/15/24 01:24 Baso % (Auto) 0.4 % 10/15/24 01:24 Neut # (Auto) 28.68 10^3/uL (1.8-7.7) H 10/15/24 01:24 Lymph # (Auto) 1.4 10^3/uL (0.8-4.8) 10/15/24 01:24 [place] # (Auto) 1.8 10^3/uL (0.2-0.9) H 10/15/24 01:24 Eos # (Auto) 0.3 10^3/uL (0.0-0.8) 10/15/24 01:24 Baso # (Auto) 0.1 10^3/uL (0.0-0.1) 10/15/24 01:24 Nucleated RBC % (auto) 0.2 % 10/15/24 01:24 Total Counted 100 (0-100) 10/14/24 05:14 Atypical Lymphs % 0.0 % (0-5) 10/14/24 05:14 Absolute Neutrophils 26.5 10^3/cmm (1.4-6.5) H 10/14/24 05:14 Segmented Neutrophils 80 % 10/14/24 05:14 Band Neutrophils 4.0 % 10/14/24 05:14 Absolute Lymphocytes 2.2 10^3/cmm (1.2-3.4) 10/14/24 05:14 Lymphocytes (Manual) 7 % 10/14/24 05:14 Monocytes (Manual) 1.0 % 10/14/24 05:14 Absolute Monocytes 0.3 10^3/cmm (0.1-0.6) 10/14/24 05:14 Eosinophils (Manual) 1 % 10/14/24 05:14 Absolute Eosinophils 0.3 10^3/cmm (0.0-0.7) 10/14/24 05:14 Basophils (Manual) 0.0 % 10/14/24 05:14 Absolute Basophils 0.0 10^3/cmm (0.0-0.2) 10/14/24 05:14 Metamyelocytes 4.0 % 10/14/24 05:14 Myelocytes 2.0 % 10/14/24 05:14 Promyelocytes 1.0 % 10/14/24 05:14 Nucleated RBCs 1.0 /100WBC (0-1) 10/06/24 03:48 Nucleated RBCs # 0.1 /100WBC 10/15/24 01:24 Blast Cells 1 % (0-0) H 10/12/24 04:50 Platelet Estimate Normal (Normal) 10/14/24 05:14 Poikilocytosis 1+ H 10/14/24 05:14 Anisocytosis 2+ H 10/14/24 05:14 RBC Morph Comment Y 10/14/24 05:14 Peripher Smr Path Cons Sent for review 10/12/24 08:25 ESR < 1 mm/hr (0-10) 10/14/24 05:14 Haptoglobin 88.0 mg/L (30-200) 10/14/24 05:13 Specimen Type Arterial 10/01/24 11:05 Sample Site Brachial, right 10/01/24 11:05 O2 Sat Pulse Oximetry Cancelled 10/01/24 11:01 ABG pH 7.34 (7.35-7.45) L 10/01/24 11:05 ABG pCO2 38.9 mmHg (35-45) 10/01/24 11:05 ABG pO2 140.0 mmHg (80.0-100.0) H 10/01/24 11:05 ABG PO2/FiO2 Ratio 350 10/01/24 11:05 ABG HCO3 20.8 mmol/L (22-26) L 10/01/24 11:05 ABG O2 Saturation 97.5 10/01/24 11:05 ABG Base Excess -4.7 mmol/L (-2.0-2.0) L 10/01/24 11:05 Massimo Test Pos 10/01/24 11:05 A-a O2 Gradient 12.8 mmHg (5-10) H 10/01/24 11:05 Hematocrit 33.5 % (42-52) L 10/01/24 11:05 Hgb O2 Saturation 96.6 % (95-100) 10/01/24 11:05 Carboxyhemoglobin < 0.3 %THgb (0.4-20.1) L 10/01/24 11:05 Methemoglobin 1.3 % (0.4-1.5) 10/01/24 11:05 Total Hemoglobin 10.9 g/dL (14-18) L 10/01/24 11:05 Sodium 141.0 mmol/L (131-143) 10/01/24 11:05 Potassium 5.4 mmol/L (3.5-5.0) H 10/01/24 11:05 Glucose 150.0 mg/dL (70-115) H 10/01/24 11:05 Ionized Calcium 1.2 mmol/L (1.1-1.4) 10/01/24 11:05 Respiration Rate Cancelled 10/01/24 11:01 O2 Delivery Device Nc 10/01/24 11:05 O2 Liters/Min 5.0 % 10/01/24 11:05 SIMV Cancelled 10/01/24 11:01 Vent Mode Cancelled 10/01/24 11:01 Mechanical Rate Cancelled 10/01/24 11:01 Spontaneous Rate Cancelled 10/01/24 11:01 FiO2 40.0 % 10/01/24 11:05 Tidal Volume Cancelled 10/01/24 11:01 PEEP Cancelled 10/01/24 11:01 Pressure Support Cancelled 10/01/24 11:01 Pressure Control Cancelled 10/01/24 11:01 CPAP Cancelled 10/01/24 11:01 Mode BiPAP Cancelled 10/01/24 11:01 Specimen Drawn By Cancelled 10/01/24 11:01 Director Global Sales ID Charley 10/01/24 11:05 Crit Value Read Back Cancelled 10/01/24 11:01 Blood Gas Notified Time Cancelled 10/01/24 11:01 Sodium 137 mmol/L (136-145) 10/15/24 01:24 Potassium 5.2 mmol/L (3.5-5.1) H 10/15/24 01:24 Chloride 105 mmol/L (98-107) 10/15/24 01:24 Carbon Dioxide 25 mmol/L (22-29) 10/15/24 01:24 Anion Gap 12.2 (5-19) 10/15/24 01:24 BUN 51 mg/dL (8-23) H 10/15/24 01:24 Creatinine 3.2 mg/dL (0.7-1.2) H 10/15/24 01:24 GFR Calculation Not Reportable 10/15/24 01:24 Glucose 92 mg/dL (65-115) 10/15/24 01:24 POC Glucose 112 mg/dL (70-110) H 10/15/24 11:17 Calculated Osmolality 297 mOsm/kg (285-295) H 10/15/24 01:24 Lactic Acid 1.2 mmol/L (0.5-2.2) 10/08/24 13:50 Lactic Acid (Sepsis) 2.2 mmol/L (0.5-2.2) 10/01/24 14:15 Calcium 8.0 mg/dL (8.5-10.5) L 10/15/24 01:24 Phosphorus 3.0 mg/dL (2.5-4.5) 10/14/24 05:14 Magnesium 2.0 mg/dL (1.7-2.3) 10/14/24 05:14 Total Bilirubin 0.4 mg/dL (0.15-1.2) 10/15/24 01:24 AST 23 U/L (0-40) 10/15/24 01:24 ALT 33 U/L (0-41) 10/15/24 01:24 Alkaline Phosphatase 63 U/L (40-130) 10/15/24 01:24 Lactate Dehydrogenase 435 U/L (135-225) H 10/14/24 05:13 Creatine Kinase 192 U/L (39-308) 10/04/24 06:03 C-Reactive Protein 11.1 mg/L (0.0-4.9) H 10/15/24 01:24 NT-Pro-B Natriuret Pep 913 pg/mL (0-450) H 10/14/24 05:14 NT-Pro-B Natriuret Pep Cancelled 10/14/24 05:14 Total Protein 4.6 g/dL (6.6-8.7) L 10/15/24 01:24 Albumin 2.6 g/dL (3.5-5.2) L 10/15/24 01:24 Globulin 2.0 g/dL (1.3-4.6) 10/15/24 01:24 Procalcitonin 0.26 ng/mL (0-0.5) 10/15/24 01:24 Urine Color Yellow (Yellow) 10/13/24 09:45 Urine Appearance Clear (CLEAR) 10/13/24 09:45 Urine pH 6.5 (5-7) 10/13/24 09:45 Ur Specific [place] 1.014 (1.005-1.030) 10/13/24 09:45 Urine Protein 1+ (Negative) A 10/13/24 09:45 Urine Glucose (UA) Trace (Normal) H 10/13/24 09:45 Urine Ketones Negative (Negative) 10/13/24 09:45 Urine Blood 1+ (Negative) A 10/13/24 09:45 Urine Nitrate Negative (Negative) 10/13/24 09:45 Urine Bilirubin Negative (Negative) 10/13/24 09:45 Urine Urobilinogen 0.2 mg/dL (Negative) 10/13/24 09:45 Ur Leukocyte Esterase Negative (Negative) 10/13/24 09:45 Urine RBC 0-4 /hpf (0-2) H 10/13/24 09:45 Urine WBC 0-4 /hpf (0-5) H 10/13/24 09:45 Ur Squamous Epith Cells 0-4 /hpf (0-5) H 10/13/24 09:45 Amorphous Sediment Not Reportable 10/13/24 09:45 Urine Bacteria Trace /hpf (NONE) 10/13/24 09:45 Hyaline Casts 2.46 /lpf 10/01/24 13:20 Lymphoma Panel Cancelled 10/15/24 01:24 C. difficile (PCR) Negative (Negative) 10/15/24 03:13 Coronavirus (PCR) Negative (Negative) 10/01/24 10:27 Influenza A (PCR) Negative (Negative) 10/09/24 12:50 Influenza Type B (PCR) Negative (Negative) 10/09/24 12:50 RSV (PCR) Positive (Negative) A 10/09/24 12:50 SARS-CoV-2 (PCR) Negative (Negative) 10/09/24 12:50 Vitals Last Vital Signs Temp 98.2 F 10/15/24 12:00 Pulse 72 10/15/24 12:00 Resp 18 10/15/24 12:00 BP 128/57 10/15/24 12:00 Pulse Ox 94 10/15/24 12:00 O2 Del Method Nasal Cannula 10/15/24 12:00 O2 Flow Rate 2 10/15/24 09:05 Discharge Plan Discharge Patient Disposition: Xfer SNF Condition: Stable Prescriptions: New dicyclomine 10 mg Capsule 10 mg PO QID PRN (Reason: esophageal spasm) 7 Days Qty: 28 0RF amoxicillin-pot clavulanate 875-125 mg tablet 1 tab PO BID 7 Days Qty: 14 0RF diltiazem HCl [Cartia XT] 120 mg capsule,extended release 24hr 120 mg PO DAILY 30 Days Qty: 30 0RF potassium chloride [Klor-Con 10] 10 mEq tablet extended release 10 meq PO DAILY 30 Days Qty: 30 0RF tamsulosin [Flomax] 0.4 mg capsule 0.4 mg PO DAILY 30 Days Qty: 30 0RF Continued Lactobac. rhamnosus GG-inulin 10 billion cell -200 mg capsule 1 cap PO DAILY finasteride 5 mg tablet 5 mg PO DAILY aspirin 81 mg Tablet,Delayed Release (Dr/Ec) 81 mg PO DAILY@07 acetaminophen 500 mg Tablet 1,000 mg PO Q6H PRN (Reason: Pain) polyethylene glycol 3350 [Miralax] 17 gram powder in packet 17 g PO DAILY PRN (Reason: constipation) Qty: 30 0RF Rx Instructions: mix with 6oz of liquid sennosides-docusate sodium [Stool Softener-Laxative] 8.6-50 mg Tablet 1 tab PO DAILY Qty: 60 0RF ipratropium-albuterol 0.5 mg-3 mg(2.5 mg base)/3 mL solution for nebulization 3 ml INHALATION TID bisacodyl [Dulcolax (bisacodyl)] 10 mg Suppository 10 mg OR DAILY PRN (Reason: Constipation) Rx Instructions: if no bm for 3 days budesonide 0.25 mg/2 mL suspension for nebulization 0.25 mg inhalation BID albuterol sulfate 90 mcg/actuation HFA aerosol inhaler 2 puff INHALATION Q6H PRN (Reason: Wheezing) furosemide 20 mg Tablet 20 mg PO DAILY Changed sodium bicarbonate 650 mg Tablet 650 mg PO BID Qty: 30 0RF Discontinued amiodarone 200 mg tablet 200 mg PO DAILY doxycycline hyclate 100 mg Capsule 100 mg PO BID prednisone 20 mg Tablet 40 mg PO DAILY metoprolol tartrate 50 mg tablet 25 mg PO BID Discharge Orders: Discharge Order (Routine); Ordered 10/15/24 Ordered By: Joshua Bernard Referrals: [facility] [Outside] Robby Orozco MD [Physician] - 2 weeks Domonique Ritchie MD [Hospitalist] - 10/18/24 1:00 pm (leukocytosis Appointment will be with Dr Moffett due to patient being established ) Elder Williamson MD [Referring] - 10/25/24 10:10 am Sidra Gee MD [Referring] - 1 week (We have notified your physician's clinic of the need for a follow-up appointment to be scheduled. If you have not heard from them within the next 2 business days, please call them directly. ) Adama Olmedo MD [Primary Care Provider] - Discharge Diet: As Directed Discharge Activity: Resume usual activity Patient Instructions: Aspiration Pneumonia (DC), GI Post Discharge Instructions w/ Anesthesia, Opioid Safety Activity Restrictions/Additional Instructions: - Please repeat CBC and BMP in 48 hours -Please follow-up with Dr. Ritchie -Discharged on dysphagia level 4 diet, severely thickened diet -Please follow-up with Dr. Holland in 2 to 4 weeks -Please follow-up with urology in [place] in 1 week for your enlarged prostate monitor for urinary retention monitor for UTI Discharge Attestations Time Spent in Discharge Care*: greater than 30 min Status at Discharge: Cognitive status at discharge: cognitively intact , Behavioral status at discharge: cooperative , Quality Metrics Clinical Quality Measures [ No reported AMI, CVA or VTE this stay] Coding Level of Care Code 44434 Total time (in minutes) for Discharge: 45 Diagnoses Acute on chronic kidney failure N17.9; N18.9
[2024-10-15] MEDS: tamsulosin 0.4 mg Capsule PO (13:18)
--- NOTE | 2024-10-15 13:21 | PC.NURSE ---
bladder scan post void 65 ml
--- NOTE | 2024-10-15 14:06 | PC.NURSE ---
Report called to Sammie DAN at [facility]
[2024-10-15 14:07] VITALS: BP 128/57; PULSE 72; RESP 18; TEMP 36.8; O2SAT 94
--- NOTE | 2024-10-15 14:43 | PC.NURSE ---
Medicaid transport here to [facility] pt.
--- NOTE | 2024-10-15 14:44 | PC.NURSE ---
Scott (pt's son) advised that pt is being transported back to [facility] now
--- NOTE | 2024-10-15 15:51 | PC.SOCIAL ---
IMM updated IMM dated and initialed, copy given to patient and copy placed in chart.
--- NOTE | 2024-10-15 15:56 | PC.NURSE ---
Dr Bernard called and asked field underwriter to call [facility] to verify that patient should be on dysphasia lvl. 4 Severely thick diet. Retail Selling Specialist also verbalized all the appointment dates and times to patient care nurse. Patient care nurse read dates and times back to field underwriter and verbalized understanding.
[2024-10-16 13:29] LABS: Leukemia Profile (BBPL) See Report
== END 2024-10-15 14:45 | disposition intermediate care facility (04) | DRG 682 ==
LOC: ER 11:00 → ER IP 13:46 → MEDSURG 16:15
PROVIDERS: Hospitalist; Internal Medicine; Surgery; Admitting Provider Internal Medicine; Emergency Provider Family Medicine; PCP Family Medicine; Visit Provider Family Medicine
PROC: 0DJ08ZZ Inspection of Upper Intestinal Tract, Via Natural or Artificial Opening Endoscopic (ICD-10-PCS; principal; 2024-10-11 12:40)
DX: N17.9 Acute kidney failure, unspecified (principal); J12.1 Respiratory syncytial virus pneumonia; J96.21 Acute and chronic respiratory failure with hypoxia; J69.0 Pneumonitis due to inhalation of food and vomit; I13.0 Hypertensive heart and chronic kidney disease with heart failure and stage 1 through stage 4 chronic kidney disease, or unspecified chronic kidney disease; J44.0 Chronic obstructive pulmonary disease with (acute) lower respiratory infection; J44.1 Chronic obstructive pulmonary disease with (acute) exacerbation; E87.0 Hyperosmolality and hypernatremia; M62.82 Rhabdomyolysis; E87.20 Acidosis, unspecified; N18.4 Chronic kidney disease, stage 4 (severe); I50.9 Heart failure, unspecified; H91.90 Unspecified hearing loss, unspecified ear; N40.1 Benign prostatic hyperplasia with lower urinary tract symptoms; R33.8 Other retention of urine; K22.4 Dyskinesia of esophagus; D64.9 Anemia, unspecified; D69.6 Thrombocytopenia, unspecified; D72.828 Other elevated white blood cell count; I48.91 Unspecified atrial fibrillation; E87.5 Hyperkalemia; I25.10 Atherosclerotic heart disease of native coronary artery without angina pectoris; J43.9 Emphysema, unspecified; Z87.440 Personal history of urinary (tract) infections; Z99.81 Dependence on supplemental oxygen; Z87.891 Personal history of nicotine dependence; I25.2 Old myocardial infarction; Z79.82 Long term (current) use of aspirin
CPT/HCPCS: 36415; 36416; 36600; 43249; 51702; 51798; 71045; 71250; 74176; 74220; 74230; 80048; 80051; 80053; 80503; 81001; 82330; 82550; 82805; 82962; 83010; 83605; 83615; 83735; 83880; 84100; 84145; 85007; 85025; 85651; 86140; 87040; 87493; 87637; 88184; 88185; 92526; 92610; 92611; 93005; 93970; 94640; 94669; 94760; 96361; 96372; 96374; 96375; 97110; 97161; 97167; 97530; 99285; G0378; J0360; J0612; J0692; J1100; J1815; J2185; J2704; J2919; J3475; J3490; J7030; J7040; J7070; J7120; J7613; J7626; J7799; Q3014; Q5105

== ENCOUNTER 2024-10-29 11:14 | Emergency (ER) | payer MEDICARE, MEDICAID, SELFPAY ==
[2024-10-29 11:16] VITALS: BP 121/65; PULSE 95; RESP 16; TEMP 36.2; O2SAT 96; BMI 18.9
--- NOTE | 2024-10-29 11:22 | W.ED.EPISTAX ---
HPI - Epistaxis General: Chief complaint: Epistaxis Stated complaint: nose bleed Time Seen by Provider: 10/29/24 11:15 Source: EMS Mode of arrival: EMS Limitations: no limitations History of Present Illness: 89-year-old male who is here from EMS with a nosebleed out of his right nare. He does wear oxygen all the time minimal bleeding this time he sent from [facility] as they were not able to get it to stop he is demented no history really available from him Associated symptoms: Deny fever(s), headache(s) or vomiting Related Data Home Medications ?Medication ?Instructions ?Recorded ?Confirmed albuterol sulfate 90 mcg/actuation 2 puff inhalation Q6H PRN Wheezing 03/23/23 10/29/24 aerosol inhaler budesonide 0.25 mg/2 mL suspension 0.25 mg inhalation BID 03/23/23 10/29/24 for nebulization ipratropium 0.5 mg-albuterol 3 mg 3 ml inhalation TID 03/23/23 10/29/24 (2.5 mg base)/3 mL nebulization soln acetaminophen 500 mg tablet 1,000 mg PO Q6H PRN Pain 04/21/23 10/29/24 finasteride 5 mg tablet 5 mg PO DAILY 06/01/23 10/29/24 furosemide 20 mg tablet 20 mg PO DAILY 10/01/24 10/29/24 dicyclomine 10 mg capsule 10 mg PO QID 10/29/24 10/29/24 menthol 0.44 %-zinc oxide 20.6 % 1 applic topical Q12H 10/29/24 10/29/24 topical ointment (Calmoseptine) Previous Rx's ?Medication ?Instructions ?Recorded sennosides 8.6 mg-docusate sodium 1 tab PO DAILY #60 tabs 06/14/22 50 mg tablet (Stool Softener-Laxative) diltiazem HCl 120 mg 120 mg PO DAILY 30 days #30 caps 10/12/24 capsule,extended release 24 hr (Cartia XT) sodium bicarbonate 650 mg tablet 650 mg PO BID #30 tabs 10/12/24 tamsulosin 0.4 mg capsule (Flomax) 0.4 mg PO DAILY 30 days #30 caps 10/15/24 Allergies Allergy/AdvReac Type Severity Reaction Status Date / Time No Known Allergies Allergy Verified 01/02/24 10:37 Review of Systems Const: Denies: fever(s), chills, body aches or change in appetite ENMT: Reports: epistaxis; Denies: throat pain or dental pain Card: Denies: chest pain Resp: Denies: dyspnea GI: Denies: abdominal pain, nausea, vomiting or diarrhea Musc: Denies: neck pain or back pain Skin/Breast: Denies: rash Neuro: Denies: headache(s) PFSH ED PFSH: Medical History Hyperkalemia Chronic kidney disease, stage 5 Anemia Acute exacerbation of CHF (congestive heart failure) Chronic lower GI bleeding Acute exacerbation of chronic obstructive airways disease COVID SVT (supraventricular tachycardia) Non-ST elevation myocardial infarction (NSTEMI) Cognitive impairment Constipation Hypertension Coronary artery disease Hyperlipidemia COPD (chronic obstructive pulmonary disease) Hemorrhagic shock Surgical History Stented coronary artery 3 stents at [facility] 16 years ago Family History Denies family history of Clotting disorder Chronic kidney disease (CKD) Social History Smoking and tobacco/nicotine status: former use of tobacco/nicotine Quit status (tobacco/nicotine): has quit using Former quit date comment: Quit smoking few weeks ago Alcohol intake: never Substance/Drug Use: never Household members: family Housing: House Physical Exam Const: COMMON NORMALS: no acute distress and alert; negative for patient oriented x3 ORIENTATION/CONSCIOUSNESS: Yes oriented to person; not oriented to place and not oriented to time HENMT: COMMON NORMALS: normocephalic and atraumatic HEAD & SCALP: normocephalic and atraumatic OTHER: Dried blood from right nare Chest: COMMONS NORMALS: normal inspection of the chest Resp: COMMON NORMALS: normal respiratory effort Cardio: COMMON NORMALS: regular rate RATE: regular rate Extremity: COMMON NORMALS: normal to inspection Neuro: COMMON NORMALS: negative for patient oriented x3 SENSORIUM/ORIENTATION: Yes alert, Yes oriented to person, No oriented to place and No oriented to time Course Vital Signs: Vital signs: Vital Signs Temperature 97.1 F L 10/29/24 11:16 Pulse Rate 76 10/29/24 12:26 Respiratory Rate 16 10/29/24 11:16 Blood Pressure 127/51 10/29/24 12:26 Pulse Oximetry 100 10/29/24 12:26 Oxygen Delivery Me thod Nasal Cannula 10/29/24 12:11 Oxygen Flow Rate 3 10/29/24 12:11 MDM - Epistaxis Medical Decision Making Patient presents here with a nosebleed that has been resolved here no further bleeding he stable for discharge back to [facility]. Medical Records I reviewed the patient's medical records. No radiology studies performed this visit Discharge Plan Discharge Patient Disposition: Home Clinical Impression: Epistaxis Condition: Stable Prescriptions: No Action finasteride 5 mg tablet 5 mg PO DAILY acetaminophen 500 mg Tablet 1,000 mg PO Q6H PRN (Reason: Pain) sennosides-docusate sodium [Stool Softener-Laxative] 8.6-50 mg Tablet 1 tab PO DAILY Qty: 60 0RF ipratropium-albuterol 0.5 mg-3 mg(2.5 mg base)/3 mL solution for nebulization 3 ml INHALATION TID budesonide 0.25 mg/2 mL suspension for nebulization 0.25 mg inhalation BID albuterol sulfate 90 mcg/actuation HFA aerosol inhaler 2 puff INHALATION Q6H PRN (Reason: Wheezing) furosemide 20 mg Tablet 20 mg PO DAILY sodium bicarbonate 650 mg Tablet 650 mg PO BID Qty: 30 0RF diltiazem HCl [Cartia XT] 120 mg capsule,extended release 24hr 120 mg PO DAILY 30 Days Qty: 30 0RF tamsulosin [Flomax] 0.4 mg capsule 0.4 mg PO DAILY 30 Days Qty: 30 0RF dicyclomine 10 mg capsule 10 mg PO QID menthol-zinc oxide [Calmoseptine] 0.44-20.6 % ointment 1 applic TOPICAL Q12H Discharge Orders: Discharge ED (Routine); Ordered 10/29/24 Ordered By: Tatum Rodríguez Referrals: Adama Olmedo MD [Primary Care Provider] - Discharge Diet: Advance as tolerated Discharge Activity: Resume usual activity Patient Instructions: Nosebleed (ED) Print Language: Mauritian Coding Level of Care Code ED Director Of Early Childhood Education for [facility]
[2024-10-29] MEDS: oxymetazoline 0.05% Nasal Spray 15 mL 2 SPRAY NOSTRIL-R (11:27)
[2024-10-29 12:11] VITALS: PULSE 78; O2SAT 96
[2024-10-29 12:26] VITALS: BP 127/51; PULSE 76; O2SAT 100
== END 2024-10-29 12:28 | disposition home or self-care (01) ==
PROVIDERS: Emergency Provider Emergency Medicine; PCP Family Medicine
DX: R04.0 Epistaxis (principal); Z87.891 Personal history of nicotine dependence; I25.10 Atherosclerotic heart disease of native coronary artery without angina pectoris; J44.9 Chronic obstructive pulmonary disease, unspecified; E78.5 Hyperlipidemia, unspecified; I13.2 Hypertensive heart and chronic kidney disease with heart failure and with stage 5 chronic kidney disease, or end stage renal disease; N18.5 Chronic kidney disease, stage 5; I50.9 Heart failure, unspecified
CPT/HCPCS: 99283

== ENCOUNTER → 2024-10-30 08:49 | Outpatient (BNVA) | payer MEDICARE, MEDICAID, SELFPAY | PROVIDERS: PCP Family Medicine; Visit Provider Surgery | DX: Z09 Encounter for follow-up examination after completed treatment for conditions other than malignant neoplasm (principal) | CPT/HCPCS: 99213 ==

== ENCOUNTER 2025-01-20 00:42 | Emergency (ER) | payer MEDICARE, MEDICAID, SELFPAY ==
[2025-01-20 00:55] VITALS: PULSE 96; RESP 20; TEMP 36.9; O2SAT 96; BMI 18.1
--- NOTE | 2025-01-20 01:02 | XRR_ITS ---
PROCEDURE INFORMATION: Exam: XR Chest Exam date and time: 01/20/2025 1:04 AM Age: 89 years old Clinical indication: Prior surgery; Surgery date: 6+ months; Surgery type: Coronary stents; C/O cough TECHNIQUE: Imaging protocol: Radiologic exam of the chest. Views: 1 view. COMPARISON: CT chest abdpel [id number] 10/15/2024 12:00 PM FINDINGS: Lungs: Emphysematous changes. Pleural spaces: Unremarkable. No pleural effusion. No pneumothorax. Heart/Mediastinum: Unremarkable. No cardiomegaly. Bones/joints: Unremarkable. XR/XR chest 1V portable [id number] IMPRESSION: 1. No acute findings. 2. Emphysematous changes.
[2025-01-20] MEDS: ipratropium-albuterol 3 mL Neb INHALATION (01:21)
[2025-01-20 01:24] VITALS: PULSE 86; RESP 18; O2SAT 98
[2025-01-20 01:29] VITALS: PULSE 88; RESP 20; O2SAT 97
[2025-01-20 01:34] LABS: Basophils # 0.1 10^3/uL (0.0-0.1); Basophils % 0.2 %; Eosinophils # 0.1 10^3/uL (0.0-0.8); Eosinophils % 0.5 %; Hematocrit 32.4 % (37-53); Lymphocytes # 2.2 10^3/uL (0.8-4.8); Mean Corpuscular HGB Conc 29.9 g/dL (30-55); Mean Corpuscular Hemoglobin 26.1 pg (27-33); Mean Corpuscular Volume 87.1 fl (82-101); Mean Platelet Volume 10.3 fL (7.4-10.4); Monocytes # 1.9 10^3/uL (0.2-0.9); Monocytes % 7.5 %; Neutrophils # 19.99 10^3/uL (1.8-7.7); Neutrophils % 81.2 %; Nucleated Red Blood Cells % 0 %; Platelet Count 241 10^3/cmm (157-399); Red Blood Count 3.72 10^6/uL (3.85-5.65); White Blood Count 24.64 10^3/uL (3.29-11.43)
[2025-01-20] MEDS: metoprolol tartrate 1 mg/1 mL SDV 5 mL 5 MG IVP (01:37)
[2025-01-20] MEDS: methylPREDNISolone sod succ 125 mg/2 mL INJ IVP (01:37)
[2025-01-20] MEDS: amlodipine 10 mg Tablet PO (01:37)
[2025-01-20] MEDS: FUROsemide 10 mg/mL SDV 4mL 40 MG IVP (01:37)
--- NOTE | 2025-01-20 01:42 | ED_ITS ---
HPI - SOB/Dyspnea 2 General: Chief Complaint: Upper Respiratory Infection Stated Complaint: cough x1 week Time Seen by Provider: 01/20/25 01:16 History of Present Illness: HPI Narrative: 89-year-old male patient who lives in a residential. He presents with worsening shortness of breath, cough, and wheezes over the past week. He had been using his inhaler quite often, which concerned residential staff. No history of fever. No history of sputum production. He is on 3 L at baseline, and his oxygen saturations seem normal. He is not swelling. He has some mild chest discomfort with cough only. He is quite hard of hearing which makes examination and interview difficult. Related Data Home Medications ?Medication ?Instructions ?Recorded ?Confirmed albuterol sulfate 90 mcg/actuation 2 puff inhalation Q 6H PRN Wheezing 03/23/23 10/30/24 aerosol inhaler budesonide 0.25 mg/2 mL suspension 0.25 mg inhalation BID 03/23/23 10/30/24 for nebulization ipratropium 0.5 mg-albuterol 3 mg 3 ml inhalation TID 03/23/23 10/30/24 (2.5 mg base)/3 mL nebulization soln acetaminophen 500 mg tablet 1,000 mg PO Q6H PRN Pain 0 04/21/23 10/30/24 finasteride 5 mg tablet 5 mg PO DAILY 06/01/2310/30 furosemide 20 mg tablet 20 mg PO DAILY 10/01/2410/20 dicyclomine 10 mg capsule 10 mg PO QID 10/29/24 menthol 0.44 %-zinc oxide 20.6 % 1 applic topical Q12H 10/29/24 10/30/24 topical ointment (Calmoseptine) aspirin 81 mg tablet,delayed 81 mg PO DAILY 10/30/24 0 10/30/24 release (Adult Aspirin Regimen) Previous Rx's ?Medication ?Instructions ?Recorded sennosides 8.6 mg-docusate sodium 1 tab PO DAILY #60 t abs 06/14/22 50 mg tablet (Stool Softener-Laxative) sodium bicarbonate 650 mg tablet 650 mg PO BID #30 tab s 10/12/24 methylprednisolone 4 mg tablets in See Rx Instructions PO .COMPLEX 01/20/25 a dose pack (Medrol (Sumanth)) #21 ea Allergies Allergy/AdvReac Type Severity Reaction Status Date / Time No Known Allergies Allergy Verified 10/30/24 09:00 PFSH ED 2 PFSH: Medical History Hyperkalemia Chronic kidney disease, stage 5 Anemia Acute exacerbation of CHF (congestive heart failure) Chronic lower GI bleeding Acute exacerbation of chronic obstructive airways disease COVID SVT (supraventricular tachycardia) Non-ST elevation myocardial infarction (NSTEMI) Cognitive impairment Constipation Hypertension Coronary artery disease Hyperlipidemia COPD (chronic obstructive pulmonary disease) Hemorrhagic shock Surgical History Stented coronary artery 3 stents at [facility] 16 years ago Family History Denies family history of Clotting disorder Chronic kidney disease (CKD) Social History Smoking and tobacco/nicotine status: former use of tobacco/nicotine Quit status (tobacco/nicotine): has quit using Former quit date comment: Quit smoking few weeks ago Alcohol intake: never Substance/Drug Use: never Household members: family Housing: House Physical Exam 2 Const: COMMON NORMALS: no acute distress GENERAL APPEARANCE: cooperative; not ill appearing and not frail appearing HENMT: COMMON NORMALS: normocephalic, atraumatic and Normal external nose present HEAD & SCALP: normocephalic and atraumatic FACE & SINUS: normal facial exam and face symmetric NOSE: Normal external nose present Eye: COMMON NORMALS: Equal, round and reactive pupils present and EOMs intact bilaterally PUPIL: Yes Equal, round and reactive pupils present Neck/C-Spine: GENERAL: Yes trachea midline Chest: CHEST: Yes Symmetrical chest wall rise Resp: COMMON NORMALS: normal respiratory effort, No retractions and No use of accessory muscles AUSCULTATION: wheezes throughout Cardio: COMMON NORMALS: regular rate and regular rhythm RATE: regular rate RHYTHM: regular rhythm GI: COMMON NORMALS: Normal to inspection, nondistended, normoactive bowel sounds present Extremity: COMMON NORMALS: no pedal edema Neuro: LORE COMA SCALE: document GCS findings Lore coma scale eye opening: Spontaneous Lore coma scale verbal response: Orientated Lore coma scale motor response: Obey commands [place] coma scale total score: 15 S ENSORY EXAM: Yes extremities (intact) Psych: COMMON NORMALS: speech normal SPEECH: Yes normal speech Skin: COMMON NORMALS: no rashes or lesions noted GENERAL SKIN EXAM: no rashes or lesions noted Course 2 Vital Signs: Vital signs: Vital Signs Temperature 98.4 F 01/20/25 00:55 Pulse Rate 86 01/20/25 02:36 Respiratory Rate 18 01/20/25 02:36 Blood Pressure 182/96 01/20/25 02:36 Pulse Oximetry 96 01/20/25 02:36 Oxygen Delivery Me thod Nasal Cannula 01/20/25 01:29 Oxygen Flow Rate 2.5 01/20/25 01:29 MDM - SOB/Dyspnea Medical Decision Making Chest x-ray shows emphysema, without acute findings. However white blood cell count is 24.6, which is actually down from 35 previously. Hemoglobin 9.7. His creatinine is 2.6. This is also improved from 3.2. He is given breathing treatment with improvement here. He is given Solu-Medrol. We will continue steroids, breathing treatments. Swabs for flu COVID and RSV are negative. To return for worsening symptoms despite treatment above. Lab Data 01/20/25 01:25 01/20/25 01:25 Labs/Radiology: Radiology Impressions Chest X-Ray 01/20/25 01:02 IMPRESSION: 1. No acute findings. 2. Emphysematous changes. Laboratory Results WBC 24.64 10^3/uL (3.29-11.43) H 01/20/25 01: RBC 3.72 10^6/uL (3.85-5.65) L 01/20/25 01: Hgb 9.70 g/dL (11.27-16.99) L 01/20/25: Hct 32.4 % (37-53) L 01/20/25: MCV 87.1 fl (82-101) 01/20/25: MCH 26.1 pg (27-33) L 01/20/25: MCHC 29.9 g/dL (30-55) L 01/20/25: RDW 20.0 % (12.1-15.1) H 01/20/25 01:25 Plt Count 241 10^3/cmm (157-399) 01/20/25:25 MPV 10.3 fL (7.4-10.4) 01/20/25:25 Neut % (Auto) 81.2 % 01/20/25 01: Lymph % (Auto) 9.0 % 01/20/25:25 Crook % (Auto) 7.5 % 01/20/25 01:25 Eos % (Auto) 0.5 % 01/20/25 01:25 Baso % (Auto) 0.2 % 01/20/25:25 Neut # (Auto) 19.99 10^3/uL (1.8-7.7) H 01/20/25:25 Lymph # (Auto) 2.2 10^3/uL (0.8-4.8) 01/20/25:25 Crook # (Auto) 1.9 10^3/uL (0.2-0.9) H 01/20/25:25 Eos # (Auto) 0.1 10^3/uL (0.0-0.8) 01/20/25:25 Baso # (Auto) 0.1 10^3/uL (0.0-0.1) 01/20/25:25 Nucleated RBC % (auto) 0 % 01/20/25: Nucleated RBCs # 0.0 /100WBC 01/20/25 01:25 Sodium 142 mmol/L (136-145) 01/20/25:25 Potassium 4.8 mmol/L (3.5-5.1) 01/20/25:25 Chloride 108 mmol/L (98-107) H 01/20/25 01:25 Carbon Dioxide 22 mmol/L (22-29) 01/20/25:25 Anion Gap 16.8 (5-19) 01/20/25:25 BUN 47 mg/dL (8-23) H 01/20/25:25 Creatinine 2.6 mg/dL (0.7-1.2) H 01/20/25:25 GFR Calculation Not Reportable 01/20/25:25 Glucose 88 mg/dL (65-115) 01/20/25:25 Calculated Osmolality 306 mOsm/kg (285-295) H 01/20/25 01:25 Calcium 8.6 mg/dL (8.5-10.5) 01/20/25 01:25 NT-Pro-B Natriuret Pep 1017 pg/mL (0-450) H 01/20/25 01:25 Influenza A (PCR) Negative (Negative) 01/20/25 01:10 Influenza Type B (PCR) Negative (Negative) 01/20/25 01:10 RSV (PCR) Negative (Negative) 01/20/25 01:10 SARS-CoV-2 (PCR) Negative (Negative) 01/20/25 01:10 All radiology interpretation(s) finalized by discharge Discharge Plan Discharge Patient Disposition: Home Clinical Impression: Acute exacerbation of chronic obstructive pulmonary disease Condition: Stable Prescriptions: New methylprednisolone [Medrol (Sumanth)] 4 mg tablets,dose pack See Rx Instructions .ROUTE .COMPLEX Qty: 21 0RF Rx Instructions: orally per package directions No Action aspirin [Adult Aspirin Regimen] 81 mg tablet,delayed release (DR/EC) 81 mg PO DAILY finasteride 5 mg tablet 5 mg PO DAILY acetaminophen 500 mg Tablet 1,000 mg PO Q6H PRN (Reason: Pain) sennosides-docusate sodium [Stool Softener-Laxative] 8.6-50 mg Tablet 1 tab PO DAILY Qty: 60 0RF ipratropium-albuterol 0.5 mg-3 mg(2.5 mg base)/3 mL solution for nebulization 3 ml INHALATION TID budesonide 0.25 mg/2 mL suspension for nebulization 0.25 mg inhalation BID albuterol sulfate 90 mcg/actuation HFA aerosol inhaler 2 puff INHALATION Q6H PRN (Reason: Wheezing) furosemide 20 mg Tablet 20 mg PO DAILY sodium bicarbonate 650 mg Tablet 650 mg PO BID Qty: 30 0RF dicyclomine 10 mg capsule 10 mg PO QID menthol-zinc oxide [Calmoseptine] 0.44-20.6 % ointment 1 applic TOPICAL Q12H Discharge Orders: Discharge ED (Routine); Ordered 01/20/25 Ordered By: Boubacar Gama Referrals: Adama Olmedo MD [Primary Care Provider, Family Practice] - 4-7 days Patient Instructions: COPD (Chronic Obstructive Pulmonary Disease) (ED), Opioid Safety, Pain Management Activity Restrictions/Additional Instructions: Use your nebulizer every 4 hours while awake for the next 48 hours whether you feel you needed or not, then you may use it as needed. Medications as directed. Return for problems. See your doctor next week. Print Language: Citizen Of [place] Coding Level of Care Code ED Public Health Policy Analyst for Rubén Hanna
[2025-01-20 02:13] LABS: Anion Gap 16.8 (5-19); Blood Urea Nitrogen 47 mg/dL (8-23); Calcium 8.6 mg/dL (8.5-10.5); Carbon Dioxide 22 mmol/L (22-29); Chloride 108 mmol/L (98-107); Creatinine Clr Calc Pharmacy 16.3797; Glucose 88 mg/dL (65-115); NT Pro B Type Natriuretic Pept 1017 pg/mL (0-450); Osmolality Calculated 306 mOsm/kg (285-295); Potassium 4.8 mmol/L (3.5-5.1); Sodium 142 mmol/L (136-145)
[2025-01-20 02:31] LABS: Influenza A NEGATIVE (Negative); Influenza B NEGATIVE (Negative); Respiratory Syncytial Virus Ce NEGATIVE (Negative); SARS-CoV-2 PCR NEGATIVE (Negative)
[2025-01-20 02:36] VITALS: BP 182/96; PULSE 86; RESP 18; O2SAT 96
== END 2025-01-20 03:45 | disposition home or self-care (01) ==
PROVIDERS: Emergency Provider Emergency Medicine; PCP Family Medicine
DX: J44.1 Chronic obstructive pulmonary disease with (acute) exacerbation (principal); Z11.52 Encounter for screening for COVID-19; Z87.891 Personal history of nicotine dependence; E78.5 Hyperlipidemia, unspecified; I25.10 Atherosclerotic heart disease of native coronary artery without angina pectoris; I13.2 Hypertensive heart and chronic kidney disease with heart failure and with stage 5 chronic kidney disease, or end stage renal disease; N18.5 Chronic kidney disease, stage 5; I50.9 Heart failure, unspecified
CPT/HCPCS: 36415; 71045; 80048; 83880; 85025; 87637; 94640; 96374; 96375; 99284; J1938; J2919; J3490; J9999